=== PATIENT | female | born 1950 | race Caucasian/White ===

== ENCOUNTER → 2023-01-25 | Outpatient (CLI) | payer MEDICARE, SELFPAY ==
[2023-01-25 18:01] LABS: CRP < 2.90 mg/L (0.0-3.0)
[2023-01-28 16:08] LABS: Endomysial Antibody IgA Negative (Negative); Immunoglobulin A 157 mg/dL (64-422); t-Transglutaminase IgA <2 U/mL (0-3)
== END | disposition home or self-care (01) ==
LOC: MTLAB 14:37
PROVIDERS: PCP Family Medicine; Referring Provider Internal Medicine Gastroenterology; Visit Provider Internal Medicine Gastroenterology
DX: R19.7 Diarrhea, unspecified (principal)
CPT/HCPCS: 36415; 82784; 83516; 86140; 86255

== ENCOUNTER 2023-09-26 09:30 | Outpatient (CLI) | payer MEDICARE, SELFPAY ==
--- OUTSIDE RECORDS SUMMARY | 2023-09-26 10:17 | XMS RPT_ITS | CCD ---
Author Name Unknown Address [address] [place] [address] Organization [facility] Care Team Providers Care Assistant Professor Of Dietetics Name Role Phone Dipak Seth Primary Care Provider DIPAK SETH Primary Care Unavailable DINAH PADILLADIJA Admitting Unavailable ERIC SHIELDS Attending Unavailable DINAH PADILLA Referring Unavailable DIPAK SETH Primary Care Unavailable ERIC SHIELDS Attending Unavailable DIPAK SETH Primary Care Unavailable Nasreen Hutchins Unavailable Unavailable Dipak Seth Unavailable Unavailable Dipak Seth Lucinda Vizcarra Unavailable Unavailable Dipak Seth Primary Care Provider DIPAK SETH Primary Care Unavailable WINNIE ESQUIVEL II Attending Unavailabl e Dorinda, Dr. Dipak Zamorano Primary Care Unavailbryce Dill, Dr. Sammie Hernandez Attending Unava dave Boles, Ms. Singh Garcia Attending Unavail able Dorinda, Dr. Dipak Zamorano Primary Care Unavaila ble Dorinda, Dr. Dipak Zamorano Primary Care Unavaila ble Zackery, Ms. Lucinda Mtz Attending Unava ilable Dorinda, Dr. Dipak Zamorano Primary Care Unavaila mariella Seth, Dr. Dipak Zamorano Attending Unavailbryce Dill, Dr. Sammie Hernandez Attending Unava ilable Dorinda, Dr. Dipak Zamorano Primary Care Unavaila ble DIPAK SETH Primary Care Unavailable DUNG LUNA Attending Unavailable YAMILE CLIFFORD Attending Unavailable DIPAK SETH Primary Care Unavailable DIPAK SETH Admitting Unavailable DIPAK SETH Primary Care Unavailable DIPAK SETH Primary Care Unavailable TOMROSALINOK, DIPAK GALINA Attending Unavailable DIPAK SETH Referring Unavailable Allergies Allergy Classification Reported Allergen(s) Allergy Type Date of Onset Reaction(s) Facility (2 sources) Ibandronate Drug Allergy Other [facility] (3 sources) Ibandronate; Translations: [IBANDRONATE] Drug Allergy 09-08-2014 Other: See Comments [facility] Medications Current Medications Medication Drug Class(es) Dates Sig (Normalized) Sig (Original) amoxicillin 500 mg oral tablet (4 sources) Penicillin-class Antibacterial Start: 01-24-2022 End: 02-02-2022 take 1 tablet by mouth twice daily amoxicillin 500 mg oral tablet ; 1 tab(s) orally 2 times a day x 10 days Quantity: 20 Refills: 0 Ordered: 24-Jan-2022 Lucinda Vizcarra Start: 24-Jan-2022 End: 02-Feb-2022 Generic Substitution Allowed Comments: Finish all this medication unless otherwise directed by prescriber. Completed/Discontinued Medications Medication Drug Class(es) Dates Sig (Normalized) Sig (Original) B COMPLEX & C NO.20-FOLIC ACID ORAL (1 source) B COMPLEX & C NO.20-FOLIC ACID ORAL Take by mouth. 0 Active Problems Active Problems Problem Classification Problem Date Documented Da te Episodic/Chronic Cardiac dysrhythmias (1 source) Cardiac arrhythmia; Translations: [Cardiac arrhythmia, unspecified cardiac arrhythmia type] Chronic Cardiac dysrhythmias (4 sources) Palpitations; Translations: [Tachycardia] 09-22-2019 Episodic Cataract (1 source) Bilateral senile combined form cataracts of eyes; Translations: [Combined forms of age-related cataract, bilateral] Onset: 05-06-2018 05-06-2018 Chronic Fluid and electrolyte disorders (1 source) Hypokalemia; Translations: [Hypokalemia] Episodic Headache; including migraine (1 source) Headache; including migraine; Translations: [Headache, unspecified] Onset: 01-24-2022 Inflammation; infection of eye (except that caused by tuberculosis or sexually transmitteddisease) (1 source) Squamous blepharitis; Translations: [Squamous blepharitis left eye, upper and lower eyelids] Episodic Nonspecific chest pain (2 sources) Chest discomfort; Translations: [Chest discomfort] 09-22-2019 Episodic Other connective tissue disease (1 source) Impingement syndrome of shoulder region; Translations: [Impingement syndrome, shoulder, right] Episodic Other eye disorders (1 source) Bilateral vitreous floaters; Translations: [Other vitreous opacities, bilateral] Onset: 05-06-2018 05-06-2018 Chronic Other non-traumatic joint disorders (1 source) Shoulder pain; Translations: [Shoulder pain, right] Episodic Other screening for suspected conditions (not mental disorders or infectious disease) (5 sources) Encounter for screening mammogram for malignant neoplasm of breast; Translations: [Encounter for screening for osteoporosis] Onset: 08-29-2022 Episodic Other upper respiratory disease (4 sources) Pain in throat 06-08-2021 Episodic Past or Other Problems Problem Classification Problem Date Documented Da te Episodic/Chronic Abdominal pain (8 sources) Right lower quadrant pain; Translations: [Unspecified abdominal pain] Onset: 10-29-2022 Episodic Blindness and vision defects (3 sources) Myopia; Translations: [Myopia, unspecified eye] Onset: 09-08-2014 09-08-2014 Episodic Fever of unknown origin (3 sources) Fever with chills; Translations: [Fever, unspecified] Onset: 01-24-2022 01-24-2022 Episodic Fracture of lower limb (1 source) Nondisplaced fracture of fifth metatarsal bone, right foot, initial encounter for closed fracture; Translations: [Nondisp fx of fifth metatarsal bone, right foot, init] Onset: 01-24-2022 Episodic Malaise and fatigue (2 sources) Other fatigue; Translations: [Other fatigue] Onset: 01-24-2022 Episodic Other bone disease and musculoskeletal deformities (3 sources) Other specified disorders of bone density and structure, unspecified site; Translations: [Oth disrd of bone density and structure, unspecified site] Onset: 08-29-2022 Episodic Other connective tissue disease (1 source) Pain in right foot; Translations: [Pain in right foot] Onset: 01-24-2022 Episodic Other gastrointestinal disorders (2 sources) Constipation, unspecified; Translations: [Constipation, unspecified] Onset: 11-17-2022 Episodic Other nervous system disorders (2 sources) Paresthesia of skin; Translations: [Paresthesia of skin] Onset: 02-22-2023 Episodic Other upper respiratory infections (7 sources) Acute pharyngitis; Translations: [Acute pharyngitis] Onset: 01-24-2022 10-28-2021 Episodic Residual codes; unclassified (1 source) Asymptomatic menopausal state; Translations: [Asymptomatic menopausal state] Onset: 08-29-2022 Episodic Retinal detachments; defects; vascular occlusion; and retinopathy (1 source) 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; Translations: [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, unspecified eye] Onset: 09-08-2014 09-08-2014 Episodic NEGATED: Highlighted row has not occurred!Residual codes; unclassified (16 sources) Disease Episodic Results Test Name Value Interpretation Reference Range Facil ity Vital Signs Date Time Vital Sign Value Performing Clinician Facility 01-24-2022 10:08-0400 Body height 160 cm Dipak Seht Other Phone: [facility] 01-24-2022 10:08-0400 Body temperature 97.88 [degF] Dipak Seth Other Phone: [facility] 01-24-2022 10:08-0400 Diastolic blood pressure 61 mm[Hg] Dipak Seth Other Phone: [facility] 01-24-2022 10:08-0400 Heart rate 73 /min Dipak Seth Other Phone: [facility] 01-24-2022 10:08-0400 Respiratory rate 16 /min Dipak Seth Other Phone: [facility] 01-24-2022 10:08-0400 SaO2% (BldA) [Mass fraction] 98 % Dipak Seth Other Phone: [facility] 01-24-2022 10:08-0400 Systolic blood pressure 117 mm[Hg] Dipak Seth Other Phone: [facility] 10-28-2021 10:40-0400 Body height 160 cm Dipak eSth Other Phone: [facility] 10-28-2021 10:40-0400 Body temperature 98.78 [degF] Dipak Seth Other Phone: [facility] 10-28-2021 10:40-0400 Diastolic blood pressure 71 mm[Hg] Dipak Seth Other Phone: [facility] 10-28-2021 10:40-0400 Heart rate 84 /min Dipak Seth Other Phone: [facility] 10-28-2021 10:40-0400 Respiratory rate 16 /min Dipak Seth Other Phone: [facility] 10-28-2021 10:40-0400 SaO2% (BldA) [Mass fraction] 96 % Dipak Seth Other Phone: [facility] 10-28-2021 10:40-0400 Systolic blood pressure 108 mm[Hg] Dipak Seth Other Phone: [facility] 06-08-2021 13:46-0400 Body height 160 cm Dipak Seth Other Phone: [facility] 06-08-2021 13:46-0400 Body temperature 98.06 [degF] Dipak Seth Other Phone: [facility] 06-08-2021 13:46-0400 Diastolic blood pressure 71 mm[Hg] Dipak Seth Other Phone: [facility] 06-08-2021 13:46-0400 Heart rate 75 /min Dipak Seth Other Phone: [facility] 06-08-2021 13:46-0400 Respiratory rate 14 /min Dipak Seth Other Phone: [facility] 06-08-2021 13:46-0400 SaO2% (BldA) [Mass fraction] 98 % Dipak Seth Other Phone: [facility] 06-08-2021 13:46-0400 Systolic blood pressure 129 mm[Hg] Dipak Seth Other Phone: [facility] 09-22-2019 08:57-0500 BMI (Body Mass Index) 23.72 kg/m2 Eric Shields [facility] 09-22-2019 08:57-0500 Body weight 60.74 kg Eric Shields [facility] 09-22-2019 08:57-0500 BP Diastolic 66 mm[Hg] Eric Aikenhmy [facility] 09-22-2019 08:57-0500 BP Systolic 106 mm[Hg] Eric Shields [facility] 09-22-2019 08:57-0500 Height 160 cm Eric Aikenhmy [facility] 09-22-2019 08:57-0500 Pulse (Heart Rate) 70 /min [facility] 08:57-0500 Pulse Oximetry 96 % [facility] 09-06-2019 19:00-0500 BP Diastolic 60 mm[Hg] [facility] 09-06-2019 19:00-0500 BP Systolic 129 mm[Hg] [facility] 09-06-2019 19:00-0500 Pulse (Heart Rate) 73 /min [facility] 09-06-2019 19:00-0500 Pulse Oximetry 98 % [facility] 09-06-2019 16:51-0500 BMI (Body Mass Index) 23.56 kg/m2 [facility] 09-06-2019 16:51-0500 Body Temperature 97.59 [degF] [facility] 09-06-2019 16:51-0500 Body weight 60.33 kg [facility] 09-06-2019 16:51-0500 Height 160 cm [facility] 09-06-2019 16:51-0500 Respiratory Rate 16 /min [facility] Encounters Encounter Date Encounter Type Care Provider Facility Start: 06-04-2023 End: 06-05-2023 ambulatory DIPAK [facility] Start: 02-22-2023 End: 02-22-2023 Emergency department patient visit [facility] Start: 12-12-[address] Sammie Dill Facility:[id number] Start: 11-23-2022 ambulatory Ms. Singh Boles Facility:[id number] Start: 11-17-2022 End: 11-17-2022 Emergency department patient visit [facility] Start: 10-29-2022 End: 11-02-2022 ambulatory [facility] Start: 10-04-2022 End: 10-04-2022 ambulatory [facility] Facility:[facility] Start: 10-04-2022 End: 10-04-2022 Patient encounter procedure Winnie Esquivel OD Work Phone: Optometry Procedures Date Procedure Procedure Detail Performing Clinician Start: 09-22-2019 12 lead ECG Eric Cherie my Work Phone: Start: 09-06-2019 Drugs of abuse urine screening test Dinah Padilla Work Phone: Start: 09-06-2019 Urinalysis Dinah Padilla Work Phone: Start: 09-06-2019 Radiologic exam ches t single view Dinah Padilla Work Phone: Start: 09-06-2019 Basic metabolic 1998 panel - Serum or Plasma Dinah Zuhairmanda Padilla Work Phone: Start: 09-06-2019 Complete blood count with white cell differential, automated Dinah Padilla Work Phone: Start: 09-06-2019 Complete blood count with white cell differential, manual Dinah Padilla Work Phone: Start: 09-06-2019 D-dimer assay, quantitative Dinah Padilla Work Phone: Start: 09-06-2019 Ethanol [Mass/volume ] in Serum or Plasma Dinah Zuhair Padilla Work Phone: Start: 09-06-2019 Hepatic function 200 0 panel - Serum or Plasma Dinah Zuhairmanda Padilla Work Phone: Start: 09-06-2019 Lipase [Enzymatic activity/volume] in Serum or Plasma [place] Zuhairmanda Padilla Work Phone: Start: 09-06-2019 Thyrotropin [Units/v olume] in Serum or Plasma by Detection limit <= 0.005 mIU/L Dinah Padilla Work Phone: Start: 09-06-2019 Troponin measurement Butch pamela Zuhair Padilla Work Phone: Start: 02-17-2015 [facility] Treatment Date Care Activity Detail Author Start: 08-12-2022 ADVANCE DIRECTIVE DISCUSSION ADVANCE DIRECTIVE DISCUSSION [facility] Start: 08-12-2022 DEPRESSION ASSESSMENT DEPRESSION ASSESSMENT [facility] Start: 09-22-2019 End: 09-22-2019 Office Visit 09/22/2019 Office Visit Cardiology Dinah Padilla MD [address] [place] [address] [phone] Eric Shields MD [address] [place] [address] [phone] [facility] Start: 04-12-2019 Influenza vaccination given SEQUENTIAL INFLUENZA VACCINE (#1) [facility] Start: 02-18-2016 Screening mammography Mammogram [facility] Start: 12-03-2015 BONE DENSITY BONE DENSITY [facility] Start: 12-03-2015 Pneumococcal vaccination PNEUMOCOCCAL VACCINE AGE 65+ (1 of 2 - PCV13) [facility] Start: 12-03-2015 PNEUMOCOCCAL: 65+ (1 - PCV) PNEUMOCOCCAL: 65+ (1 - PCV) [facility] Start: 2000 Administration of herpes zoster vaccine Zoster Vaccines (1 of 2) [facility] Start: 2000 SHINGRIX VACCINE (1 of 2) SHINGRIX VACCINE (1 of 2) [facility] Start: 12-03-1995 COLOGUARD (FIT-DNA) COLOGUARD (FIT-DNA) [facility] Start: 12-03-1995 Colonoscopy COLONOSCOPY [facility] Start: 12-03-1995 COLORECTAL CANCER SCREENING COLORECTAL CANCER SCREENING [facility] Start: 12-03-[address] COLONOGRAPHY [facility] Start: 12-03-1995 DIABETES SCREEN DIABETES SCREEN [facility] Start: 12-03-1995 FECAL OCCULT BLOOD FECAL OCCULT BLOOD [facility] Start: 12-03-1995 LIPID SCREEN LIPID SCREEN [facility] Start: 12-03-1995 SIGMOIDOSCOPY SIGMOIDOSCOPY [facility] Start: 1990 Mammography MAMMOGRAM [facility] Start: 1969 Urine microalbumin profile DTAP,TDAP,TD (1 - Tdap) [facility] Start: 1968 HEPATITIS C SCREENING HEPATITIS C SCREENING [facility] Start: 1953 History and physical examination, annual for health maintenance Wellness Visit [facility] Start: 1950 Fall risk assessment Falls Risk Assessment [facility] Start: 1950 Hepatitis C antibody, confirmatory test HEPATITIS C SCREENING [facility] Start: 1950 Screening for malignant neoplasm of colon Colorectal Cancer Screening: Colonoscopy [facility] Start: 1950 Screening for osteoporosis Dexa Scan [facility] Start: 1950 Screening mammography Mammogram [facility] Start: 1950 Tetanus vaccination TETANUS EVERY 10 YR [facility] End: 09-11-2019 48 hour ambulatory electrocardiographic monitoring Holter monitor - 48 hour Cardiac Services Routine Tachycardia Once for 1 Occurrences starting 09/11/2019 until 09/11/2019 [facility] Payers Date Payer Category Payer Medicare AETNA MEDICARE A ETNA MEDICARE PPO [id number] 2021-Present [phone] [facility] [id number] [place] [address] [facility] [id number] 2019 Medicare AETNA MANAGED ME DICARE AETNA MEDICARE PLAN (PPO) [id number] 2019-Present [id number] 2019 Medicare [id number] 2015 Medicare [id number] 2015 Unknown AETNA\AETNA BEATRIZ MACIAS 1950 Unknown [id number] 1950 Unknown [id number] 1950 Unknown [id number] 1950 Unknown [id number] 1950 Unknown [id number] 1950 Unknown [id number] 1950 Unknown [id number] 1950 Unknown [id number] 1950 Unknown [id number] 1950 Unknown [id number] 1950 Unknown [id number] 1950 Unknown [id number] Social History Date Type Detail Facility Start: 09-08-2014 End: 09-06-2019 Tobacco smoking status INIS Never smoker [facility] Start: 09-06-2019 End: 09-22-2019 Alcohol intake Current drinker of alcohol (finding) [facility] Start: 09-06-2019 Alcohol Comment social [facility] Start: 1950 Sex Assigned At Not on file [facility] Tobacco smoking consumption unknown [facility] Start: 09-08-2014 Tobacco use and exposure Smokeless tobacco non-user [facility] Start: 07-13-2021 Alcohol intake Ex-drinker (finding) [facility] Start: 07-13-2021 Alcohol intake [facility] Start: 09-08-2014 Alcohol Comment Occassionally [facility] Functional Status Date Assessment Result Facility NEGATED: Highlighted row Functional performance Functional status health issues are not documented [facility] Work Phone: Mental Status Date Assessment Result Facility NEGATED: Highlighted row Cognitive function [Interpretation] Cognitive status health issues are not documented [facility] Work Phone: Progress note 10-04-2022 Note Date & Type Note Facility 10-04-2022 Note HNO ID: [id number] Author: Winnie Esquivel II, OD Service: ? 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 Recommend Ocusoft lid scrubs and lubricant eye drops through day. Resolution expected slowly over next weeks time. Recheck as needed. Instruct patient to immediately report any change in condition outside of expected and discussed symptoms. I have confirmed and edited as necessary the relevant ophthalmic history, ROS, and the neuro exam findings as obtained by others. I have seen and examined Chinmay Grimaldo. I have discussed the case and the management of this patient's care with the Resident/Fellow, if applicable. I also have reviewed and agree with the assessment and plan as stated above and agree with all of its relevant components. 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 Recommend Ocusoft lid scrubs and lubricant eye drops through day. Resolution expected slowly over next weeks time. Recheck as needed. Instruct patient to immediately report any change in condition outside of expected and discussed symptoms. I have confirmed and edited as necessary the relevant ophthalmic history, ROS, and the neuro exam findings as obtained by others. I have seen and examined Chinmay Grimaldo. I have discussed the case and the management of this patient's care with the Resident/Fellow, if applicable. I also have reviewed and agree with the assessment and plan as stated above and agree with all of its relevant components. 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 Recommend Ocusoft lid scrubs and lubricant eye drops through day. Resolution expected slowly over next weeks time. Recheck as needed. Instruct patient to immediately report any change in condition outside of expected and discussed symptoms. I have confirmed and edited as necessary the relevant ophthalmic history, ROS, and the neuro exam findings as obtained by others. I have seen and examined Chinmay Grimaldo. I have discussed the case and the management of this patient's care with the Resident/Fellow, if applicable. I also have reviewed and agree with the assessment and plan as stated above and agree with all of its relevant components. 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 Advance Directives and Livin g Will 09/06/2019 5:10 PM Documents on File Type Date Recorded 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 Advance Directives and Livin g Will 09/06/2019 5:10 PM Advance Directives and Livin g Will 09/11/2019 12:00 AM Documents on File Type Date Recorded 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 Advance Directives and Livin g Will 09/06/2019 5:10 PM Advance Directives and Livin g Will 09/11/2019 12:00 AM Reason for Referral Status Reason Specialty Diagnoses / Procedures Referred By Contact Referred To Contact Pending Review Specialty Services Required/Patien t's Best Interest Cardiology Dinah Padilla MD [address] [place] [address] Status Reason Specialty Diagnoses / Procedures Referred By Contact Referred To Contact Pending Review Cardiology Diagnoses Tachycardia Procedures Holter monitor - 48 hour Dipak Seth MD [address] [place] [address] Discharge Instructions * Attachments The following attachments cannot be sent through Care Everywhere. * Hypokalemia (Maori) * Palpitations (Maori) documented in this encounter Assessments Diagnosis Palpitations Hypokalemia Hypopotassemia Diagnosis Cardiac arrhythmia, unspecified cardiac arrhythmia type Palpitations Chest discomfort Other chest pain Diagnosis Tachycardia Unspecified tachycardia Instructions Name Dates Details Instructions not documented History of Present Illness * Eric Shields MD - 09/22/2019 9:27 AM EST OFFICE CONSULTATION NOTE [facility] [address] [facility] [address] [facility] [id number] Physicians: Dipak Seth MD (Family); Dinah Padilla MD (Referring) Subjective: Chinmay Grimaldo is a 68 y.o. female seen in the office today for Establish Care (hx of palpitations. no complaints of palps currently. Holter completed. ) . HPI: The patient is a 68-year-old female with a past medical history significant for atypical chest painremotely. She had an equivocal SPECT and underwent coronary angiography approximately 15 years ago.She had normal coronary arteries at that time. The patient was at a play 2 weeks ago when she felt her heart racing. Her smart watch displayed a heart rate of 180. She presented to the emergency department but by that time the symptoms had abated. She had no evidence of dysrhythmia at that time. Her EKG was nonacute. Her blood work was actuallyquite normal. Her troponin was undetectable. She does note occasional chest discomfort which she states can last all day. It is worse with inspiration. She denies any orthopnea, paroxysmal internal dyspnea, syncope, or near syncope. The patient did wear a Holter monitor which was unremarkable. Assessment & Plan: Palpitations The patient had a sensation of heart racing. Her smart watch calculated a heart rate of around 180.Her symptoms had abated by the time she presented to the emergency department. Her telemetry was unremarkable. She had outpatient telemetry which did not demonstrate any significant tachycardia or bradycardia. I do not believe further testing is indicated presently. I would continue to treat her with observation. If she has recurrence of symptoms, I would consider a 30-day event recorder. Chest discomfort The patient has atypical chest discomfort. It appears to be pleuritic. Her EKG today did not demonstrate any changes. I would continue to treat this with observation. She had normal coronary arteriesremotely. If symptoms change or become more frequent, we can revisit the issue of repeat ischemic work-up. Follow Up Ordered: Return if symptoms worsen or fail to improve. Histories: Past Medical History: Diagnosis Date Palpitations Past Surgical History: Procedure Laterality Date APPENDECTOMY CARDIAC CATHETERIZATION 05/2003 no angiographically definable CAD CYSTO 1996 History reviewed. No pertinent family history. Social History Tobacco Use Smoking status: Never Smoker Smokeless tobacco: Never Used Substance Use Topics Alcohol use: Yes Comment: social Drug use: Never Current Outpatient Medications Medication Sig Dispense Refill cholecalciferol, vitamin D3, 125 mcg (5,000 unit) capsule Take 2,000 Units by mouth daily . No current facility-administered medications for this visit. No Known Allergies Review of Systems Constitution: Negative for diaphoresis, malaise/fatigue, weight gain and weight loss. HENT: Negative for hearing loss, nosebleeds and tinnitus. Eyes: Negative for blurred vision and visual disturbance. Cardiovascular: Positive for chest pain (Atypical) and palpitations. Negative for claudication, cyanosis, dyspnea on exertion, irregular heartbeat, leg swelling, near-syncope, orthopnea, paroxysmal nocturnal dyspnea and syncope. Respiratory: Negative for hemoptysis, shortness of breath and snoring. Endocrine: Negative for cold intolerance and heat intolerance. Hematologic/Lymphatic: Does not bruise/bleed easily. Skin: Negative for flushing, poor wound healing and rash. Musculoskeletal: Negative for back pain, muscle weakness and myalgias. Gastrointestinal: Negative for abdominal pain, change in bowel habit, melena, nausea and vomiting. Genitourinary: Negative for decreased libido and hematuria. Neurological: Negative for loss of balance and numbness. Psychiatric/Behavioral: Negative for memory loss. The patient is not nervous/anxious. Overview of Problems Addressed: Problem Palpitations Chest Discomfort Objective: Physical Exam Constitutional: She is oriented to person, place, and time. She appears well- developed and well-nourished. HENT: Head: Normocephalic. Eyes: Pupils are equal, round, and reactive to light. Conjunctivae and EOM are normal. No scleral icterus. Neck: Normal range of motion. Neck supple. No JVD present. No tracheal deviation present. No thyromegaly present. Cardiovascular: Normal rate, regular rhythm, S1 normal, S2 normal, normal heart sounds and intact distal pulses. Exam reveals no friction rub. No murmur heard. Pulmonary/Chest: Breath sounds normal. No respiratory distress. She has no wheezes. She has no rales. Abdominal: Soft. Bowel sounds are normal. She exhibits no distension and no mass. There is no hepatosplenomegaly. There is no abdominal tenderness. Musculoskeletal: Normal range of motion. General: No edema. Lymphadenopathy: She has no cervical adenopathy. Neurological: She is alert and oriented to person, place, and time. Skin: Skin is warm and dry. Psychiatric: She has a normal mood and affect. Her behavior is normal. Vitals: Vitals: 09/22/19 0857 BP: 106/66 BP Location: Left arm Patient Position: Sitting Pulse: 70 SpO2: 96% Weight: 60.7 kg (133 lb 14.4 oz) Height: 5' 3 Orders Placed This Encounter ECG 12 Lead cholecalciferol, vitamin D3, 125 mcg (5,000 unit) capsule Thank you for allowing me to assist you in the cardiovascular care of this patient. Please don't hesitate to contact me if you have any questions regarding these thoughts. 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 1. Independent HEP to allow for 50% reduction in max ADL C/C sx ( 8/10) 2-3wks 2. 0/10 night time sx to allow for uninterrupted sleep x1wk ( 02/15) 2-3wks 3. Survey score improvement from 22% to 10% (QDI) 3-4wks 4. ROM increase to allow for improved ADL dressing uppers, reaching (from 145 to 155 active elevation) 3-4wks 5. Strength increase to allow for improved ADL carrying, object handling (from gr4-/4 to gr 4+) 3-4wks, goal partially met Planned interventions include: cryotherapy, dry needling, education/instruction, electrical stimulation, home program, hot pack, kinesiotaping, manual therapy, self care/home management and therapeutic exercises. Frequency and duration: No further visits planned. Potential to achieve rehab goals is good Pt being placed on hold for 30 days at this time and is going to attempt independence (more content not included)... Additional Source Comments INFORMATION SOURCE (unrecogn ized section and content) DATE CREATED AUTHOR AUTHOR'S ORGANIZ ATION 01/15/2020 [facility] DATE CREATED AUTHOR AUTHOR'S ORGANIZ ATION 10/31/[address] [facility] DATE CREATED AUTHOR AUTHOR'S ORGANIZ ATION 01/25/2022 [facility] DATE CREATED AUTHOR AUTHOR'S ORGANIZ ATION 10/05/2022 [facility] DATE CREATED AUTHOR AUTHOR'S ORGANIZ ATION 12/15/2022 [facility] DATE CREATED AUTHOR AUTHOR'S ORGANIZ ATION 06/06/2023 [facility] Reason for Visit (unrecogniz ed section and content) Reason Comments Establish Care hx of palpitations. no complaints of palps currently. Holter completed. Status Reason Specialty Diagnoses / Procedures Referred By Contact Referred To Contact Pending Review Specialty Services Required/Patien t's Best Interest Cardiology Dinah Padilla MD [address] [place] [id number] Status Reason Specialty Diagnoses / Procedures Referred By Contact Referred To Contact Pending Review Cardiology Diagnoses Tachycardia Procedures Holter monitor - 48 hour Dipak Seth MD [address] [place] [address] Reason Comments Blepharitis Evaluation Olga Guevara RN - 09/06/2019 4:57 PM Dinah Antonio MD - 09/06/2019 4:56 PM EST ED Notes (unrecognized secti on and content) PT STATES SHE HAS BEEN NAUSEATED WITH DISCOMFORT IN HER R CHEST. PT STATES HER HEART RATE ON HER FITBIT WAS 190. PT ALSO STATES SHE FELT DIZZY. DENIES PREVIOUS HISTORY. ED PROVIDER NOTE [facility] NAME: Chinmay Grimaldo AGE: 68 y.o. : 1950 VISIT DATE: 09/06/2019 CSN: [id number] PCP: Dipak Seth MD Chief Complaint Patient presents with increased heart rate HPI Patient is a 68-year-old female generally healthy who denies any significant medical or surgical history presents to the ED with complaints of increased heart rate while at rest watching a theater show earlier today. In the ED patient is awake alert she is answering questions appropriately her speech is clear no facial droop is noted GCS is 15 initial vital blood pressure 146/69 her pulse is 101 pulse ox is 100% on room air she is afebrile 97.6 Fahrenheit. Patient says she was sitting watching the other show when her Apple Watch noted her heart rate was in the 190s she started feeling pulsation in her neck palpitations mild dizziness decided to come in the ED for evaluation. Patient denies any previous history of SVTs any cardiac issues any thyroid abnormalities she denies any history of [place] PE pneumothorax no recent travel hospitalization or sick contact denied any symptoms prior to the episode an hour ago while at rest. Initial EKG in the ED does note........ History reviewed. No pertinent past medical history. Past Surgical History: Procedure Laterality Date APPENDECTOMY History reviewed. No pertinent family history. Social History Socioeconomic History Marital status: Spouse name: Not on file Number of children: Not on file Years of education: Not on file Highest education level: Not on file Occupational History Not on file Social Needs Financial resource strain: Not on file Food insecurity Worry: Not on file Inability: Not on file Transportation needs Medical: Not on file Non-medical: Not on file Tobacco Use Smoking status: Never Smoker Smokeless tobacco: Never Used Substance and Sexual Activity Alcohol use: Yes Comment: social Drug use: Never Sexual activity: Not on file Lifestyle Physical activity Days per week: Not on file Minutes per session: Not on file Stress: Not on file Relationships Social connections Talks on phone: Not on file Gets together: Not on file Attends [employer] service: Not on file Active member of club or organization: Not on file Attends meetings of clubs or organizations: Not on file Relationship status: Not on file Other Topics Concern Not on file Social History Narrative Not on file No current outpatient medications on file prior to encounter. No Known Allergies Review of Systems All other systems reviewed and are negative. Patient Vitals for the past 24 hrs: BP Temp Temp src Pulse Resp SpO2 Height Weight 09/06/19 1651 146/69 97.6 F (36.4 C) Oral (!) 101 16 100 % 5' 3 60.3 kg (133 lb) Physical Exam Vitals signs and nursing note reviewed. Constitutional: General: She is not in acute distress. Appearance: Normal appearance. She is well-developed. She is not ill-appearing, toxic-appearing or diaphoretic. Comments: Laying in bed comfortably awake alert answering questions appropriately nondistressed looking HENT: Head: Normocephalic and atraumatic. Right Ear: There is no impacted cerumen. Left Ear: There is no impacted cerumen. Nose: Nose normal. No congestion or rhinorrhea. Mouth/Throat: Mouth: Mucous membranes are moist. Pharynx: Oropharynx is clear. No oropharyngeal exudate or posterior oropharyngeal erythema. Eyes: General: No scleral icterus. Right eye: No discharge. Left eye: No discharge. Extraocular Movements: Extraocular movements intact. Conjunctiva/sclera: Conjunctivae normal. Pupils: Pupils are equal, round, and reactive to light. Neck: Musculoskeletal: Normal range of motion and neck supple. No neck rigidity or muscular tenderness. Cardiovascular: Rate and Rhythm: Regular rhythm. Tachycardia present. Pulses: Normal pulses. Heart sounds: Normal heart sounds. Pulmonary: Effort: Pulmonary effort is normal. No respiratory distress. Breath sounds: Normal breath sounds. No stridor. No wheezing, rhonchi or rales. Chest: Chest wall: No tenderness. Abdominal: General: Bowel sounds are normal. There is no distension. Palpations: Abdomen is soft. There is no mass. Tenderness: There is no abdominal tenderness. There is no right CVA tenderness, left CVA tenderness, guarding or rebound. Hernia: No hernia is present. Musculoskeletal: Normal range of motion. General: No swelling, tenderness, deformity or signs of injury. Right lower leg: No edema. Left lower leg: No edema. Lymphadenopathy: Cervical: No cervical adenopathy. Skin: General: Skin is warm and dry. Coloration: Skin is not jaundiced or pale. Findings: No bruising, erythema or lesion. Neurological: General: No focal deficit present. Mental Status: She is alert and oriented to person, place, and time. Mental status is at baseline. Cranial Nerves: No cranial nerve deficit. Sensory: No sensory deficit. Motor: No weakness. Coordination: Coordination normal. Gait: Gait normal. Psychiatric: Mood and Affect: Mood normal. Laboratory & Radiographic Imaging (if done): Results for orders placed or performed during the hospital encounter of 09/06/19 Chem 7 Result Value Ref Range Sodium 140 135 - 145 mmol/L Potassium 3.4 (L) 3.5 - 5.1 mmol/L Chloride 104 98 - 108 mmol/L Bicarbonate 26 21 - 32 mmol/L Creatinine 0.80 0.60 - 1.20 mg/dL Glucose 108 (H) 65 - 99 mg/dL BUN 11 8 - 25 mg/dL eGFR 76 >=60 mL/min/1.73 m2 BUN/Creatinine Ratio 13.8 10.0 - 20.0 Anion Gap 13 10 - 20 mmol/L D-Dimer, Quantitative Result Value Ref Range D-Dimer 0.43 0.27 - 0.49 mcg/mL FEU Hepatic Function Panel (LFT) Result Value Ref Range Total Protein 7.9 6.0 - 8.0 g/dL Albumin 4.1 3.2 - 5.2 g/dL Total Bilirubin 0.4 0.0 - 1.3 mg/dL Bilirubin, Direct <0.1 0.0 - 0.4 mg/dL Alkaline Phosphatase 82 40 - 150 U/L AST 15 0 - 45 U/L ALT 22 14 - 65 U/L Lipase Result Value Ref Range Lipase 186 73 - 393 U/L Troponin Result Value Ref Range Troponin I <15 <=45 ng/L Troponin I Interpretation Normal Urinalysis Result Value Ref Range Color, Urine Yellow Colorless, Yellow Clarity, Urine Clear Clear Specific Pillow 1.009 1.005 - 1.025 pH, Urine 5.0 5.0 - 7.0 Protein, Urine Negative Negative mg/dL Glucose, Urine Negative Negative mg/dL Ketones, Urine Negative Negative mg/dL Bilirubin, Urine Negative Negative Urobilinogen, Urine <2.0 <2.0 mg/dL Blood, Urine Negative Negative Nitrite, Urine Negative Negative Leukocyte Esterase, Urine Negative Negative WBCs, Urine 2 0 - 5 /hpf RBCs, Urine <1 0 - 3 /hpf Bacteria, Urine None Seen None Seen /hpf Hyaline Casts 3-5 (A) 0 - 2 /lpf Mucus, Urine Many (A) None Seen, Rare /lpf TSH with Reflex Free T4 Result Value Ref Range TSH 0.86 0.27 - 4.20 mcIU/mL Urine Drug Screen Result Value Ref Range Amphetamine Screen, Urine None Detected None Detected Barbiturate Screen, Urine None Detected None Detected Benzodiazepine Screen, Urine None Detected None Detected Cannabinoid Screen, Urine None Detected None Detected Cocaine, Screen Urine None Detected None Detected Methadone Screen, Urine None Detected None Detected Opiate Screen, Urine None Detected None Detected Oxycodone Screen, Urine None Detected None Detected Alcohol, Medical Result Value Ref Range Alcohol (Medical) <10.00 <10.00 mg/dL CBC Auto Differential Result Value Ref Range WBC 6.56 4.50 - 11.00 K/mcL RBC 4.65 4.00 - 5.20 M/mcL Hemoglobin 14.0 12.0 - 16.0 g/dL Hematocrit 42.4 36.0 - 46.0 % MCV 91.2 80.0 - 100.0 fL MCH 30.1 26.0 - 34.0 pg MCHC 33.0 31.0 - 37.0 g/dL Platelets 258 150 - 400 K/mcL RDW - CV 13.0 11.6 - 14.8 % MPV 10.3 9.0 - 15.5 fL Neutrophils 60.9 % Lymphocytes 28.8 % Monocytes 7.9 % Eosinophils 1.5 % Basophils 0.6 % IG Percent 0.30 % Neutrophils Abs 3.99 1.70 - 7.00 K/mcL Lymphocytes Abs 1.89 0.90 - 4.00 K/mcL Monocytes Abs 0.52 0.30 - 0.90 K/mcL Eosinophils Abs 0.10 0.00 - 0.50 K/mcL Basophils Abs 0.04 0.00 - 0.30 K/mcL IG Absolute 0.02 0.00 - 0.30 K/mcL Nucleated RBC 0.0 % Nucleated RBC Abs 0.00 0.00 - 0.00 K/mcL XR Chest 1 View Final Result 1. No acute findings. DPR/mjr Workstation ID: [id number] Procedures MDM Patient is a 68-year-old female who denies any significant medical or surgical history denies any previous history of coronary artery disease [place] PE pneumothorax presents to the ED with complaints of palpitation increased heart rate while at rest in the ED however patient is awake alert answering questions appropriately her speech is clear no facial droop is noted GCS is 15 initial vital blood pressure 146/69 pulse of 101 pulse ox is 100% on room air afebrile 97.6 Fahrenheit initial EKG does note normal sinus rhythm with no ST wave abnormalities markers electrolytes chest x- ray are all within normal limits patient was given a supplement potassium she remained asymptomatic in the ED after few hours of observation she is discharged with cardiology outpatient follow-up for Holter monitor and further cardiac cardiac work-up encouraged to return to the ED if any worsening symptoms and she expressed understanding. The patient has been informed that they may have pre-hypertension or hypertension based on a blood pressure reading in the Emergency Department. I recommend that the patient call the primary care provider listed on their discharge instructions or a physician of their choice as soon as possible to arrange follow-up in the next 4 weeks for further evaluation of possible pre-hypertension or hypertension. . Clinical Impression: 1. Palpitations 2. Hypokalemia ED Disposition ED Disposition Condition Comment Discharge Stable Chinmay Grimaldo discharged to home/self care in stable condition. Follow-up Information 1. Dipak Seth MD. Specialty: Family Medicine Why: If symptoms worsen [address] [place] [address] 2. [facility]. Specialty: Cardiology Why: If symptoms worsen [address] Medical Office [facility] [id number] Contact information for after-discharge care Follow-up information has not been specified. Dinah Padilla MD 09/06/19 1903 documented in this encounter Assessment & Plan Note - Eric Shields MD - 09/22/2019 9:31 AM ESTAssessment & Plan Note - Eric Shields MD - 09/22/2019 9:30 AM EST Miscellaneous Notes (unrecog nized section and content) Associated Problem(s): Chest discomfort The patient has atypical chest discomfort. It appears to be pleuritic. Her EKG today did not demonstrate any changes. I would continue to treat this with observation. She had normal coronary arteries remotely. If symptoms change or become more frequent, we can revisit the issue of repeat ischemic work-up. Associated Problem(s): Palpitations The patient had a sensation of heart racing. Her smart watch calculated a heart rate of around 180. Her symptoms had abated by the time she presented to the emergency department. Her telemetry was unremarkable. She had outpatient telemetry which did not demonstrate any significant tachycardia or bradycardia. I do not believe further testing is indicated presently. I would continue to treat her with observation. If she has recurrence of symptoms, I would consider a 30-day event recorder. documented in this encounter <item><item><item> Privacy Markings (unrecogniz ed section and content) Section Author: Guillermina Tinoe PROHIBITION ON REDISCLOSURE OF CONFIDENTIAL INFORMATION This notice accompanies a disclosure of information concerning a client made to you with the consent of such client. Section Author: Guillermina Tineo PROHIBITION ON REDISCLOSURE OF CONFIDENTIAL INFORMATION This notice accompanies a disclosure of information concerning a client made to you with the consent of such client. Section Author: Guillermina Tineo PROHIBITION ON REDISCLOSURE OF CONFIDENTIAL INFORMATION This notice accompanies a disclosure of information concerning a client made to you with the consent of such client. Source Comments (unrecognize d section and content) In the event this informatio n is protected by the Federal Confidentiality of Alcohol and Drug Abuse Patient Records regulations: The Federal rules restrict any use of the information to criminally investigate or prosecute any alcohol or drug abuse patient.[facility] Care Teams (unrecognized sec tion and content) FOR RECORDS PERTAINING TO PATIENTS WHO ARE OR HAVE BEEN ENROLLED IN A CHEMICAL DEPENDENCY/SUBSTANCEABUSE PROGRAM, SOME INFORMATION MAY BE OMITTED. This clinical summary was aggregated from multiple sources. Caution should be exercised in using it in the provision of clinical care. This summary normalizes information from multiple sources, and as a consequence, information in this document may materially change the coding, format and clinical context of patient data. In addition, data may be omitted in some cases. CLINICAL DECISIONS SHOULD BE BASED ON THE PRIMARY CLINICAL RECORDS. [facility]. provides no warranty or guarantee of the accuracy or completeness of information in this document.
[2023-09-26 12:45] LABS: Vitamin B12 977 pg/mL (211-911); Vitamin D,25 Hydroxy 46.2 ng/mL
[2023-09-26 15:00] LABS: ALB/GLOB Ratio 1.1 RATIO (0.9-2.4); AST(SGOT) 21 U/L (15-37); Alanine Aminotransfer ALT/SGPT 21 U/L (13-56); Albumin, Serum 3.8 g/dL (3.2-5.0); Alkaline Phosphatase 99 U/L (45-117); Anion Gap 6 (5-15); BUN 11 mg/dL (7-18); BUN/Creat Ratio 13.7 RATIO (10-20); Calcium,Total 9.7 mg/dL (8.5-10.1); Chloride 107 mmol/L (98-107); Cholesterol 185 mg/dL (200); EST Glomerular Filtration Rate 74 mL/min (>60); Est Glom Filt Rate - Afr Amer 90 mL/min (>60); Ferritin 64 ng/mL (8-252); Globulin 3.5 g/dL (2.2-4.2); Glucose 91 mg/dL (74-106); High Density Lipoprotein 86 mg/dL; Protein, Total 7.3 g/dL (6.4-8.2); Sodium Level 141 mmol/L (136-145); Triglycerides 103 mg/dL; Very Low Density Lipoprotein 21 mg/dL (5-40)
== END 2023-09-26 23:59 | disposition home or self-care (01) ==
LOC: MFPLAB 09:30
PROVIDERS: PCP Family Medicine; Visit Provider Family Medicine
DX: E55.9 Vitamin D deficiency, unspecified (principal); E78.5 Hyperlipidemia, unspecified
CPT/HCPCS: 36415; 80053; 80061; 82306; 82607; 82728

== ENCOUNTER → 2024-01-13 | Outpatient (CLI) | payer MEDICARE, SELFPAY ==
--- NOTE | 2024-01-13 13:49 | BI_ITS ---
MAMMOGRAPHY - BILATERAL SCREENING REASON FOR EXAM: Female, 73 years old. Routine annual screening examination. PERTINENT HISTORY: Non-contributory. TECHNIQUE: Digital bilateral breast elsie (3D mammographic acquisition) in the CC and MLO projections. 2-D mediolateral oblique (MLO) and craniocaudad (CC) views of both breasts were obtained. CAD: Full Field Digital Mammography with Computer Added Detection was performed. COMPARISON: Comparison is made with prior outside examination of December 12, 2022. FINDINGS: Breast Composition: The breasts are heterogeneously dense, which may obscure small masses. There are no dominant masses or suspicious calcifications. No other significant abnormalities are identified. There has been no significant change since the prior study. BI/SCRN MAMM (CAD)W/ELSIE BILAT IMPRESSION: Stable bilateral screening mammogram. Yearly follow-up mammogram recommended. (A) ASSESSMENT CATEGORY: BIRADS Category 1: Negative. A letter regarding these results will be sent to the patient by the facility within 30 days. Approximately 10% of breast cancers are not detected by mammography. A normal mammogram should not delay biopsy of a clinically suspicious abnormality. [id number] Electronically Signed: Nixon Ibarra MD at 14:47 EDT ,
== END | disposition home or self-care (01) ==
PROVIDERS: PCP Family Medicine; Referring Provider Nurse Practitioner Family; Visit Provider Nurse Practitioner Family
DX: Z12.31 Encounter for screening mammogram for malignant neoplasm of breast (principal)
CPT/HCPCS: 77063; 77067

== ENCOUNTER → 2024-04-01 | Outpatient (CLI) | payer MEDICARE, SELFPAY ==
[2024-04-01 10:17] LABS: Absolute Lymphocyte Count 1.09 X10^3/uL (0.83-4.51); Absolute Neutrophil Count 3.4 X10^3/uL (2.0-7.7); Basophil# 0.03 X10^3/uL; Basophil% 0.5 % (0-1); Eosinophil# 0.49 X10^3/uL; Eosinophils% 8.8 % (0-5); Hematocrit 38.9 % (37-47); Hemoglobin 12.4 g/dL (12.0-15.0); Lymphocyte # 1.09 X10^3/ul (0.83-4.51); Lymphocyte % 19.7 % (19-41); Mean Corp Hgb Conc 31.9 g/dL (32-36); Mean Platelet Vol. 10.3 fl (6.2-12.0); Monocyte# 0.48 X10^3/uL; Monocyte% 8.7 % (0-10); NRBC Flagged by Analyzer 0 % (0-5); Neutrophil # 3.44 X10^3/uL (2.7-7.7); Neutrophil % 62.1 % (47-70); Platelet Count 245 K/mm3 (150-450); Red Blood Count 4.14 M/mm3 (4.2-5.4); White Blood Count 5.5 K/mm3 (4.4-11.0)
[2024-04-01 10:32] LABS: Vitamin D,25 Hydroxy 77.8 ng/mL
[2024-04-01 10:50] LABS: ALB/GLOB Ratio 0.9 RATIO (0.9-2.4); AST(SGOT) 11 U/L (15-37); Alanine Aminotransfer ALT/SGPT 20 U/L (13-56); Albumin, Serum 3.4 g/dL (3.2-5.0); Alkaline Phosphatase 102 U/L (45-117); Anion Gap 6 (5-15); BUN 14 mg/dL (7-18); BUN/Creat Ratio 18.8 RATIO (10-20); Calcium,Total 9.5 mg/dL (8.5-10.1); Chloride 105 mmol/L (98-107); Cholesterol 167 mg/dL (200); Creatinine, Serum 0.75 mg/dL (0.55-1.02); EST Glomerular Filtration Rate 81 mL/min (>60); Est Glom Filt Rate - Afr Amer 98 mL/min (>60); Globulin 3.8 g/dL (2.2-4.2); Glucose 110 mg/dL (74-106); High Density Lipoprotein 72 mg/dL; Potassium 3.9 mmol/L (3.5-5.1); Protein, Total 7.2 g/dL (6.4-8.2); Sodium Level 139 mmol/L (136-145); Triglycerides 106 mg/dL; Very Low Density Lipoprotein 21 mg/dL (5-40)
== END | disposition home or self-care (01) ==
LOC: MFPLAB 08:38
PROVIDERS: PCP Family Medicine; Visit Provider Family Medicine
DX: E55.9 Vitamin D deficiency, unspecified (principal); E78.5 Hyperlipidemia, unspecified
CPT/HCPCS: 36415; 80053; 80061; 82306; 85025

== ENCOUNTER → 2024-04-08 | Outpatient (CLI) | payer MEDICARE, SELFPAY ==
[2024-04-08 18:40] LABS: Vitamin B12 621 pg/mL (211-911)
[2024-04-08 18:59] LABS: Hemoglobin A1c 5.6 % (3.8-5.6)
== END | disposition home or self-care (01) ==
LOC: MFPLAB 15:00
PROVIDERS: PCP Family Medicine; Visit Provider Family Medicine
DX: R73.09 Other abnormal glucose (principal); E53.9 Vitamin B deficiency, unspecified
CPT/HCPCS: 36415; 82607; 83036

== ENCOUNTER 2024-05-07 08:45 | Outpatient (RCR) | payer MEDICARE, SELFPAY ==
[2024-04-23 10:22] VITALS: BP 142/61; PULSE 63; RESP 18; TEMP 36.8; BMI 24.4
[2024-05-07 08:43] VITALS: BP 132/59; PULSE 65; RESP 18; TEMP 35.7; BMI 24.4
== END 2024-05-11 23:59 | disposition home or self-care (01) ==
LOC: WC 08:45
PROVIDERS: PCP Family Medicine; Referring Provider Family Medicine; Visit Provider Student in an Organized Health Care Education/Training Program
DX: L97.522 Non-pressure chronic ulcer of other part of left foot with fat layer exposed (principal); S91.332S Puncture wound without foreign body, left foot, sequela; W26.8XXS Contact with other sharp object(s), not elsewhere classified, sequela; M79.672 Pain in left foot; Z79.899 Other long term (current) drug therapy
CPT/HCPCS: 11042; 99213; G0463

== ENCOUNTER 2024-06-11 09:45 | Outpatient (RCR) | payer MEDICARE, SELFPAY ==
[2024-05-12 00:25] VITALS: BP 132/59; PULSE 65; RESP 18; TEMP 35.7; BMI 24.4
[2024-05-14 08:37] VITALS: BP 140/76; PULSE 71; RESP 18; TEMP 35.9; BMI 24.4
[2024-06-11 10:18] VITALS: BP 131/86; PULSE 69; RESP 18; TEMP 36.1; BMI 24.4
== END 2024-06-11 14:19 | disposition home or self-care (01) ==
LOC: WC 09:45
PROVIDERS: PCP Family Medicine; Referring Provider Family Medicine; Visit Provider Student in an Organized Health Care Education/Training Program
DX: L97.521 Non-pressure chronic ulcer of other part of left foot limited to breakdown of skin (principal); S91.332S Puncture wound without foreign body, left foot, sequela; W26.8XXS Contact with other sharp object(s), not elsewhere classified, sequela; M79.672 Pain in left foot; Z79.899 Other long term (current) drug therapy
CPT/HCPCS: 97597; 99213; G0463

== ENCOUNTER → 2024-06-19 | Outpatient (CLI) | payer MEDICARE, SELFPAY | END | disposition home or self-care (01) | PROVIDERS: PCP Family Medicine | DX: N39.0 Urinary tract infection, site not specified (principal) | CPT/HCPCS: 87086 ==

== ENCOUNTER → 2024-11-24 | Outpatient (CLI) | payer MEDICARE, SELFPAY ==
[2024-11-24 19:12] LABS: Internal QC Validated? YES +Cl - CLEAR BKGD; Monotest Negative (Negative); Record Kit Lot#, Mono 13241430
== END | disposition home or self-care (01) ==
LOC: MFPLAB 14:54
PROVIDERS: PCP Family Medicine
DX: J32.9 Chronic sinusitis, unspecified (principal)
CPT/HCPCS: 36415; 86308

== ENCOUNTER → 2024-12-04 | Outpatient (CLI) | payer MEDICARE, SELFPAY | END | disposition home or self-care (01) | LOC: LABSPEC 14:57 | PROVIDERS: PCP Family Medicine; Referring Provider Otolaryngology; Visit Provider Otolaryngology | DX: J02.9 Acute pharyngitis, unspecified (principal) | CPT/HCPCS: 87070 ==

== ENCOUNTER → 2025-01-13 | Outpatient (CLI) | payer MEDICARE, SELFPAY ==
--- OUTSIDE RECORDS SUMMARY | 2025-01-13 20:30 | XMS RPT_ITS | CCD ---
Author Organization [facility] Care Team Providers Care Vamp Maker Name Role Phone Dipak Seth Primary Care Provider Nasreen Hutchins Unavailable Unavailable Dipak Seth Unavailable Unavailable Dipak Seth Lucinda Vizcarra Unavailable Unavailable Dipak Seth Primary Care Provider Dorinda, Dr. Dipak Zamorano Primary Care Unavailbryce Hilario, Dr. Sammie Hernandez Attending Unava dave Ayoub, Ms. Ernestina Garcia Attending Unavail able Dorinda, Dr. Dipak Zamorano Primary Care Unavaila ble Dorinda, Dr. Dipak Zamorano Primary Care Unavaila mariella Vizcarra, Ms. Lucinda Mtz Attending Maanva ilable Dorinda, Dr. Dipak Zamorano Primary Care Unavaila ble Dorinda, Dr. Dipak Zamorano Attending Unavaila ble Fuentes, Dr. Sammie Hernandez Attending Unava ilable Dorinda, Dr. Dipak Zamorano Primary Care Unavaila LOTTIE Yokr Attending Unavail able TRANG CARR Primary Care Unavailable Trang Carr MD Primary Care Provider [phone] Trang Carr MD Primary Care Provider [phone] Trang Carr MD Primary Care Provider Fernyorrow RETORT FIRER-CAroldo Attending Provider Fernyorrow RETORT FIRER-CAroldo Referring Provider DARBY VELASCO Admitting Unavailable TRANG CARR Primary Care Unavailable ISABELLA DIXON Attending Unavailable TRANG CARR Primary Care Unavailable ROYER VICTORIA Attending Unavailable JERE COLON Admitting Unavailelizabeth e TRANG CARR Primary Care Unavailable JASON VIDALES Attending Unavailabl e [facility] Consulting Christiano Carr, Chalon Primary Care Unavailable Stathopoulos, Vanessa Referring Unavailabl e Stathopoulos, Vanessa Attending Unavailabl e Lilly, Chalon Referring Unavailable Lilly, Chalon Attending Unavailable Lilly, Chalon Primary Care Unavailable Lilly, Chalon Primary Care Unavailable Pb Corrales Attending Unavailabl e Warraviann, Pb Referring Unavailabl e Lilly, Chalon Primary Care Unavailable McMorrow RETORT FIRER, Aroldo Referring Unavailable McMorrow RETORT FIRER, Aroldo Attending Unavailable Lilly, Chalon Primary Care Unavailable Rima Seay Attending Unavailable Lilly, Chalon Referring Unavailable Lilly, Chalon Primary Care Unavailable WonDaniel collier Attending Unavailable Lilly, Chalon Referring Unavailable Lilly, Chalon Primary Care Unavailable WonDaniel Attending Unavailable Lilly, Antonioon Attending Unavailable Lilly, Chalon Primary Care Unavailable Lilly, Antonioon Attending Unavailable Lilly, Chalon Primary Care Unavailable MOLLY KIRBY Attending Unavailabl e COOPERCLOTILDEERMOLLY Referring Unavailabl e LILLY, CHALON Primary Care Unavailable MOLLY KIRBY Attending Unavailabl e SELF Referring Unavailable LILLY, CHALON Primary Care Unavailable MOLLY KIRBY Attending Unavailabl e COOPERRIDER, MOLLY Arana Referring Unavailabl e LILLY, CHALON Primary Care Unavailable Allergies Allergy Classification Reported Allergen(s) Allergy Type Date of Onset Reaction(s) Facility (2 sources) Ibandronate Drug Allergy Other [facility] (15 sources) Ibandronate; Translations: [IBANDRONATE] Drug Allergy 5 Other: See Comments, Anaphylaxis [facility] Comment on above: no appetite nauseous (1 source) Ibadronate Drug Allergy 4 [facility] Repository Medications Current Medications Medication Drug Class(es) Dates [...] this medication unless otherwise directed by prescriber. Start: 06-08-2021 End: 06-17-2021 take 1 tablet by mouth twice daily amoxicillin 875 mg oral tablet ; 1 tab(s) orally 2 times a day x 10 days Quantity: 20 Refills: 0 Ordered: 08-Jun-2021 Lucinda Vizcarra Start: 08-Jun-2021 End: 17-Jun-2021 Status: Other Generic Substitution Allowed Comments: Finish all this medication unless otherwise directed by prescriber. Comment on above: Finish all this medi cation unless otherwise directed by prescriber. aspirin 81 mg delayed release oral tablet (7 sources) Platelet Aggregation Inhibitor, Nonsteroidal Anti-inflammatory Drug Start: 07-31-20 24 End: 08-30-19 25 take 1 tablet by mouth once daily aspirin 81 MG EC tablet Take 1 (one) tablet (81 mg total) by mouth daily . 30 tablet 07/31/2024 08/30/2024 Active B COMPLEX & C NO.20-FOLIC ACID ORAL (3 sources) B COMPLEX & C NO.20-FOLIC ACID ORAL Take by mouth. 0 Active Comment on above: Take by mouth. CALCIUM PHOSPHATE DIBAS/VIT D3 (VITAMIN D, WITH CALCIUM, ORAL) (3 sources) CALCIUM PHOSPHAT E DIBAS/VIT D3 (VITAMIN D, WITH CALCIUM, ORAL) Take by mouth. 0 Active Comment on above: Take by mouth. 12 hr cetirizine hydrochloride 5 mg / pseudoephedrine hydrochloride 120 mg extended release oral tablet (5 sources) alpha-Adrenergic Agonist, Histamine-1 Receptor Antagonist Start: 11-29-19 End: 12-29-19 25 take 1 tablet by mouth twice daily cetirizine-pseudo ePHEDrine (ZyrTEC-D) 5-120 mg per tablet Take 1 (one) tablet by mouth 2 (two) times a day . 60 tablet 11/28/2024 12/28/2024 Active cholecalciferol 0.125 mg oral capsule (11 sources) Vitamin D take 1 capsule by mouth once daily cholecalciferol, vitamin D3, 125 mcg (5,000 unit) capsule Take 1 (one) capsule (5,000 Units total) by mouth daily . Active Cholecalciferol, Vitamin D3, 125 mcg (5,000 unit) cap Take 2,000 Units by mouth. 0 Active take 1 capsule by mouth once domingo ly cholecalciferol, vitamin D3, 125 mcg (5,000 unit) capsule Take 2,000 Units by mouth daily . 0 Active Comment on above: Take 2,000 Units by mouth. 1 ml denosumab 60 mg/ml prefilled syringe (12 sources) RANK Ligand Inhibitor Start: 04-23-2024 Denosumab (Denosumab 60 Mg/Ml Subcutaneous Syringe) 60 mg/mL syringe Active mg SC April 23, 2024 12:00am denosumab (Proli a) 60 mg/mL Syrg Inject 60 (sixty) mg under the skin every 6 (six) months . Active inject 60 mg by subc utaneous injection once denosumab (PROLIA) 60 mg/mL Inject 60 mg subcutaneously one time only. 0 Active Comment on above: Inject 60 mg subcuta neously one time only. fluticasone propionate 0.05 mg/actuat metered dose nasal spray (5 sources) Corticosteroid Start: 5 End: 6 take 2 spray(s) nasal route once daily fluticasone propionate (FLONASE) 50 mcg/actuation nasal spray Instill 2 (two) sprays into each nostril daily . 16 g 11/28/2024 11/28/2025 Active lactobac cmb #[id number] 300-250 million cell-mg cap (3 sources) lactobac cmb #[id number] 300-250 million cell-mg cap Take by mouth. 0 Active Comment on above: Take by mouth. meloxicam 15 mg oral tablet (3 sources) Nonsteroidal Anti-inflammatory Drug Start: 0 meloxicam (MOBIC) 15 mg tablet metoprolol tartrate 25 mg oral tablet (8 sources) beta-Adrenergic Melvina Start: 5 End: 6 take 0.5 tablet by mouth twice daily as needed metoprolol tartrate (LOPRESSOR) 25 MG tablet Take 0.5 (one-half) tablet (12.5 mg total) by mouth 2 (two) times a day as needed . 30 tablet 11 12/04/2024 12/04/2025 Active Start: 07-31-2024 End: 07-31-2024 take 1 dose by mouth once 50-100 mg, Oral, Once, On Fr i 07/31/24 at 0915, For 1 dose, Pre-Procedure, 1 hour prior to CCTA exam, if HR greater than 60. Hold for HR less than or equal to 59, SEE ADMINISTRATION INSTRUCTIONS for dosage, For 1 Dose Pre-Procedure. For HR greater than 60 beats per minute AND patient IS already on a beta-melvina, give 50mg. For HR greater than 60 beats per minute AND patient is NOT already on a beta-melvina, give 100mg. Start: 07-31-2024 End: 07-31-2024 10 mg, Intravenous, Every 10 min PRN, 1 hour after oral dose for HR greater than 60 beats per minute AND SBP greater than 90 mmHg., Starting on 07/31/24 at 0817, For 3 doses, Pre-Procedure, >>>>>TO BE RELEASED AND GIVEN IN PROCEDURE AREA ONLY MULTIVITAMIN WITH MINERALS (MULTIVITAMIN & MINERAL FORMULA ORAL) (3 sources) MULTIVITAMIN WIT H MINERALS (MULTIVITAMIN & MINERAL FORMULA ORAL) Take by mouth. 0 Active Comment on above: Take by mouth. Omeprazole (2 sources) Proton Pump Inhibitor PriLOSEC Quantity: 0 Refills: 0 Ordered: 28-Oct-2021 Poppy Joe Generic Substitution Allowed pantoprazole 40 mg delayed release oral tablet (12 sources) Proton Pump Inhibitor Start: 4 End: 4 take 1 tablet by mouth once daily Pantoprazole 40 mg tablet,delayed release (DR/EC) Active 40 mg PO DAILY April 23, 2024 12:00am pantoprazole DR (PROTONIX) 20 mg tablet Take 20 mg by mouth. 0 Active rosuvastatin calcium 10 mg oral tablet (12 sources) HMG-CoA Reductase Inhibitor Start: 07-31-2024 End: 08-30-2024 take 2 tablets by mouth once daily rosuvastatin (CRESTOR) 10 MG tablet Take 2 (two) tablets (20 mg total) by mouth nightly . 60 tablet 07/31/2024 Active Start: 04-23-2024 End: 07-31-2024 take 1 tablet by mouth at bedtime Rosuvastatin 10 mg tablet Active 10 mg PO AT BEDTIME April 23, 2024 12:00am rosuvastatin (CR ESTOR) 20 mg tablet Take 10 mg by mouth. 0 Active statin (unknown) (1 source) sucralfate 1000 mg oral tablet (8 sources) Aluminum Complex Start: 07-31-20 End: 08-30-19 take 1 tablet by mouth four times daily before mealtime sucralfate (CARAFATE) 1 gram tablet Take 1 (one) tablet (1 g total) by mouth 4 (four) times a day before meals . 120 tablet 07/31/2024 Active traZODone hydrochloride 50 mg oral tablet (9 sources) Serotonin Reuptake Inhibitor Start: 07-30-20 End: 08-30-19 take 1 tablet by mouth once daily as needed for sleep traZODone (DESYREL) 50 MG tablet Take 1 (one) tablet (50 mg total) by mouth nightly as needed for sleep . 30 tablet 07/31/2024 Active vitamin b12 1 mg oral tablet (7 sources) Vitamin B12 take 1 tablet by mouth every other day cyanocobalamin (vitamin B-12) 1000 MCG tablet Take 1 (one) tablet (1,000 mcg total) by mouth every other day . Active Completed/Discontinued Medications Medication Drug Class(es) Dates Sig (Normalized) Sig (Original) acetaminophen 325 mg oral tablet (8 sources) Start: 07-30-2024 End: 07-31-2024 take 1 tablet by mouth every four hours as needed take 2 tablets by mo ut every six hours as needed for pain acetaminophen (TYLENOL) 500 MG tablet Ta ke 2 (two) tablets (1,000 mg total) by mouth every 6 (six) hours as needed for pain . Active aluminum hydroxide 40 mg/ml / magnesium hydroxide 40 mg/ml / simethicone 4 mg/ml oral suspension (1 source) Start: 07-30-2024 End: 07-31-2024 take 30 mL by mouth every four hours as needed for gastroesophageal reflux disease atorvastatin 20 mg oral tablet (1 source) HMG-CoA Reductase Inhibitor Start: 07-30-2024 End: 07-31-2024 take 20 mg by mouth once daily 20 mg, Oral, Nightly, First dose on Sat07/30/24 at 2215 1 ml atropine sulfate 1 mg/ml injection (1 source) Anticholinergic, Cholinergic Muscarinic Antagonist Start: 07-31-2024 End: 07-31-2024 1 mg, Intravenous, As needed, If HR less than 40 or continued symptomatic bradycardia, Starting on Sat07/31/24 at 0740, For 3 doses, Intra-Procedure, Administer over 1 minute. May repeat as needed every 3 minutes (maximum dose of 3 mg). benzonatate 100 mg oral capsule (2 sources) Non-narcotic Antitussive Start: 10-28-2021 End: 11-06-2021 take 2 capsules by mouth every eight hours as needed benzonatate 100 mg oral capsule ; 1-2 cap(s) orally every 8 hours, As Needed for cough Quantity: 60 Refills: 0 Ordered: 28-Oct-2021 Lucinda Vizcarra Start: 28-Oct-2021 End: 06-Nov-2021 Status: Other Generic Substitution Allowed Comments: May cause drowsiness. Alcohol may intensify this effect. Use care when operating dangerous machinery.Swallo w whole. Do not crush. Comment on above: May cause drowsiness . Alcohol may intensify this effect. Use care when operating dangerous machinery.Swallow whole. Do not crush. fluconazole 150 mg oral tablet (3 sources) Azole Antifungal Start: 06-08-2021 End: 06-08-2021 take 1 tablet by mouth once Diflucan 150 mg oral tablet ; 1 tab(s) orally once Quantity: 1 Refills: 0 Ordered: 08-Jun-2021 Lucinda Vizcarra Start: 08-Jun-2021 End: 08-Jun-2021 Status: Other Generic Substitution Allowed Comments: Do not take this drug if you are .Finish all this medication unless otherwise directed by prescriber. Comment on above: Do not take this missy g if you are .Finish all this medication unless otherwise directed by prescriber. iopamidoL (ISOVUE-370) 370 mg iodine /mL (76 %) injection 72 mL (1 source) Start: 07-31-2024 End: 07-31-2024 72 mL, Intravenous, Once in imaging, contrast, Starting on Sat07/31/24 at 1005, For 1 dose nitroglycerin 0.4 mg sublingual tablet (2 sources) Nitrate Vasodilator Start: 07-31-2024 End: 07-31-2024 Code/trauma/michelle tion medication, Starting on Sat07/31/24 at 1015, Intra-Procedure Start: 07-30-2024 End: 07-31-2024 potassium bicarbonate 25 meq effervescent oral tablet (1 source) Start: 09-06-2019 End: 09-06-2019 potassium bicarbonate (K-LYTE) 25 MEQ disintegrating tablet 50 mEq 1000 ml sodium chloride 9 mg/ml injection (2 sources) Start: 07-31-2024 End: 07-31-2024 take 25 mL intravenously every hour 25 mL/hr, Intravenous, Continuous, Starting on Sat07/31/24 at 0915, Pre-Procedure Start: 09-06-2019 End: 09-06-2019 sodium chloride 0.9% (NS) andrea pati 500 mL Problems Active Problems Problem Classification Problem Date Documented Date Episodic/Chronic Abdominal pain (4 sources) Right lower quadrant pain; Translations: [Right lower quadrant pain] Onset: 11-23-2022 Episodic Cardiac dysrhythmias (1 source) Cardiac arrhythmia; Translations: [Cardiac arrhythmia, unspecified cardiac arrhythmia type] Chronic Cardiac dysrhythmias (18 sources) Palpitations; Translations: [Tachycardia] Onset: 09-22-2019 09-22-2019 Episodic Cataract (3 sources) Bilateral senile combined form cataracts of eyes; Translations: [Combined forms of age-related cataract, bilateral] Onset: 05-06-2018 05-06-2018 Chronic Chronic ulcer of skin (3 sources) Non-pressure chronic ulcer of other part of left foot with fat layer exposed; Translations: [Skin ulcer of left foot with fat layer exposed] Onset: 07-17-2024 05-07-2024 Chronic Fluid and electrolyte disorders (1 source) Hypokalemia; Translations: [Hypokalemia] Episodic Headache; including migraine (1 source) Headache; including migraine; Translations: [Headache, unspecified] Onset: 01-24-2022 Inflammation; infection of eye (except that caused by tuberculosis or sexually transmitteddisease) (1 source) Squamous blepharitis; Translations: [Squamous blepharitis left eye, upper and lower eyelids] Episodic Nutritional deficiencies (1 source) Vitamin D deficiency, unspecified; Translations: [Vitamin D deficiency, unspecified] Onset: 04-21-2024 Chronic Open wounds of extremities (2 sources) Puncture wound of sole of foot; Translations: [Puncture wound without foreign body, left foot, initial encounter] 04-23-2024 Episodic Other connective tissue disease (1 source) Impingement syndrome of shoulder region; Translations: [Impingement syndrome, shoulder, right] Episodic Other connective tissue disease (2 sources) Foot pain; Translations: [Pain in left foot] 04-23-2024 Episodic Other ear and sense organ disorders (2 sources) Impacted cerumen, bilateral; Translations: [Impacted cerumen, bilateral] Onset: 11-28-2024 Episodic Other eye disorders (3 sources) Bilateral vitreous floaters; Translations: [Other vitreous opacities, bilateral] Onset: 05-06-2018 05-06-2018 Chronic Other eye disorders (1 source) Subconjunctival hemorrhage of left eye; Translations: [Conjunctival hemorrhage, left eye] 01-20-2024 Episodic Other eye disorders (1 source) Dry eyes; Translations: [Dry eye syndrome of bilateral lacrimal glands] 03-23-2024 Episodic Other non-traumatic joint disorders (1 source) Shoulder pain; Translations: [Shoulder pain, right] Episodic Other screening for suspected conditions (not mental disorders or infectious disease) (7 sources) Encounter for screening mammogram for malignant neoplasm of breast; Translations: [Encounter for screening for osteoporosis] Onset: 08-29-2022 Episodic Other upper respiratory disease (4 sources) Pain in throat 06-08-2021 Episodic Comment on above: SORE THROAT Other upper respiratory disease (2 sources) Other specified disorders of nose and nasal sinuses; Translations: [Other specified disorders of nose and nasal sinuses] Onset: 11-28-2024 Episodic Other upper respiratory infections (1 source) Chronic sinusitis, unspecified; Translations: [Chronic sinusitis, unspecified] Onset: 11-30-2024 Chronic Other upper respiratory infections (12 sources) Acute pharyngitis; Translations: [Acute pharyngitis] Onset: 01-24-2022 10-28-2021 Episodic Unclassified (2 sources) COLD SYMPTOMS 10-28-2021 Comment on above: COLD SYMPTOMS Unclassified (1 source) Viral URI with cough 10-28-2021 Urinary tract infections (1 source) Urinary tract infection, site not specified; Translations: [Urinary tract infection, site not specified] Onset: 11-05-2024 Episodic Past or Other Problems Problem Classification Problem Date Documented Da te Episodic/Chronic Blindness and vision defects (12 sources) Myopia; Translations: [Myopia, unspecified eye] Onset: 09-08-2014 09-08-2014 Episodic Diabetes mellitus without complication (1 source) Other abnormal glucose; Translations: [Other abnormal glucose] Onset: 04-22-2024 Episodic Fever of unknown origin (3 sources) Fever with chills; Translations: [Fever, unspecified] Onset: 01-24-2022 01-24-2022 Episodic Fracture of lower limb (1 source) Nondisplaced fracture of fifth metatarsal bone, right foot, initial encounter for closed fracture; Translations: [Nondisp fx of fifth metatarsal bone, right foot, init] Onset: 01-24-2022 Episodic Malaise and fatigue (2 sources) Other fatigue; Translations: [Other fatigue] Onset: 01-24-2022 Episodic Nonspecific chest pain (20 sources) Chest discomfort; Translations: [Chest pain] Onset: 07-30-2024 09-22-2019 Episodic Other bone disease and musculoskeletal deformities (3 sources) Other specified disorders of bone density and structure, unspecified site; Translations: [Oth disrd of bone density and structure, unspecified site] Onset: 08-29-2022 Episodic Other connective tissue disease (1 source) Pain in right foot; Translations: [Pain in right foot] Onset: 01-24-2022 Episodic Residual codes; unclassified (1 source) Asymptomatic menopausal state; Translations: [Asymptomatic menopausal state] Onset: 08-29-2022 Episodic Retinal detachments; defects; vascular occlusion; and retinopathy (3 sources) 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; Translations: [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, unspecified eye] Onset: 09-08-2014 09-08-2014 Episodic NEGATED: Highlighted row has not occurred!Residual codes; unclassified (16 sources) Disease Episodic Results Test Name Value Interpretation Reference Range Facility Culture, Throaton 12-06-2024 CUT Normal throat jeanine isolated. No beta-hemolytic streptococcus isolated. Normal [facility] Comment on above: Performed By: #### M 100.1000 #### [facility] [address] [place], [address] CBC WITH AUTO DIFFERENTIALon 11-28-2024 AUTO NRBC 0.0 % Normal [facility] Comment on above: Performed By: #### L [id number] #### [facility] [address] [place], [place] [address] Олег Wheeler M.D. [id number] AUTO NRBC ABS COUNT 0.00 K/mcL Normal 0.00-0.00 [facility] Comment on above: Performed By: #### L [id number] #### LAB [address] [place] [address] Олег Wheeler M.D. [id number] BASOPHILS ABSOLUTE COUNT 0.03 K/mcL Normal 0.00-0.30 [facility] Comment on above: Performed By: #### L [id number] #### LAB [address] [place] [address] Олег Wheeler M.D. [id number] Basophils/100 WBC (Bld) 0.6 % Normal [facility] Comment on above: Performed By: #### L [id number] #### LAB [address] [place] [address] Олег Wheeler M.D. [id number] Eosinophils (Bld) [#/Vol] 0.09 10*3/uL Normal 0.00-0.50 [facility] Comment on above: Performed By: #### L [id number] #### LAB [address] [place] [address] Олег Wheeler M.D. [id number] Eosinophils/100 WBC (Bld) 1.7 % Normal [facility] Comment on above: Performed By: #### L [id number] #### LAB [address] [place] [address] Олег Wheeler M.D. [id number] Erythrocyte distribution width (RBC) [Ratio] 13.2 % Normal 11.6-14.8 [facility] Comment on above: Performed By: #### L [id number] #### LAB [address] [place] [address] Олег Wheeler M.D. [id number] Hematocrit (Bld) [Volume fraction] 42.6 % Normal 36.0-46.0 [facility] Comment on above: Performed By: #### L [id number] #### LAB [address] [place] [address] Олег Wheeler M.D. [id number] Hemoglobin (Bld) [Mass/Vol] 13.6 g/dL Normal 12.0-16.0 [facility] Comment on above: Performed By: #### L [id number] #### LAB [address] [place] [address] Олег Wheeler M.D. [id number] IG ABSOLUTE 0.02 K/mcL Normal 0.00-0.30 [facility] Comment on above: Performed By: #### L [id number] #### LAB [address] [place] [address] Олег Wheeler M.D. [id number] IG PERCENT 0.40 % Normal [facility] Comment on above: Result Comment: The IG parameter is the percentage of metamyelocytes, myelocytes and promyelocytes. An immature granulocyte count (IG) of 1% or more suggests the possibility of infection, an IG count of 3% is very likely related to an infection. Performed By: #### L [id number] #### LAB [address] [place] [address] Олег Wheelre M.D. [id number] Lymphocytes (Bld) [#/Vol] 1.54 10*3/uL Normal 0.90-4.00 [facility] Comment on above: Performed By: #### L [id number] #### LAB [address] [place] [address] Олег Wheeler M.D. [id number] Lymphocytes/100 WBC (Bld) 29.5 % Normal [facility] Comment on above: Performed By: #### L [id number] #### LAB [address] [place] [address] Олег Wheeler M.D. [id number] MCH (RBC) [Entitic mass] 29.9 pg Normal 26.0-34.0 [facility] Comment on above: Performed By: #### L [id number] #### LAB [address] [place] [address] Олег Wheeler M.D. [id number] MCV (RBC) [Entitic vol] 93.6 fL Normal 80.0-100.0 [facility] Comment on above: Performed By: #### L [id number] #### LAB [address] [place] [address] Олег Wheeler M.D. [id number] MEAN CORPUSCULAR HEMOGLOBIN CONC 31.9 g/dL Normal 31.0-37.0 [facility] Comment on above: Performed By: #### L [id number] #### LAB [address] [place] [address] Олег Wheeler M.D. [id number] Monocytes (Bld) [#/Vol] 0.41 10*3/uL Normal 0.30-0.90 [facility] Comment on above: Performed By: #### L [id number] #### LAB [address] [place] [address] Олег Wheeler M.D. [id number] Monocytes/100 WBC (Bld) 7.9 % Normal [facility] Comment on above: Performed By: #### L [id number] #### LAB [address] [place] [address] Олег Wheeler M.D. [id number] NEUTROPHILS ABSOLUTE COUNT 3.13 K/mcL Normal 1.70-7.00 [facility] Comment on above: Performed By: #### L [id number] #### LAB [address] [place] [address] Олег Wheeler M.D. [id number] Neutrophils/100 WBC (Bld) 59.9 % Normal [facility] Comment on above: Performed By: #### L [id number] #### LAB [address] [place] [address] Олег Wheeler M.D. [id number] Platelet mean volume (Bld) [Entitic vol] 10.2 fL Normal 9.4-12.4 [facility] Comment on above: Performed By: #### L [id number] #### LAB [address] [place] [address] Олег Wheeler M.D. [id number] Platelets (Bld) [#/Vol] 241 10*3/uL Normal 150-400 [facility] Comment on above: Performed By: #### L [id number] #### [facility] [address] [place] [address] Олег Wheeler M.D. [id number] RBC (Bld) [#/Vol] 4.55 10*6/uL Normal 4.00-5.20 [facility] Comment on above: Performed By: #### L [id number] #### [facility] [address] [place] [address] Олег Wheeler M.D. [id number] WBC (Bld) [#/Vol] 5.22 10*3/uL Normal 4.50-11.00 [facility] Comment on above: Performed By: #### L [id number] #### LAB [address] [place] [address] Олег Wheeler M.D. [id number] COMPREHENSIVE METABOLIC PANE [facility] 11-28-2024 Albumin [Mass/Vol] 4.4 g/dL Normal 3.2-5.2 [facility] Comment on above: Order Comment: [facility] has implemented the eGFR calculation approach that does not have a coefficient for race that conforms to the NKF-ASN Task Force Recommendations. Performed By: #### [id number] ####[facility] [address] [place] [address] Олег Wheeler M.D. [id number] ALP [Catalytic activity/Vol] 70 U/L Normal 40-150 [facility] Comment on above: Order Comment: [facility] has implemented the eGFR calculation approach that does not have a coefficient for race that conforms to the NKF-ASN Task Force Recommendations. Performed By: #### [id number] ####[facility] [address] [address] Олег Wheeler M.D. [id number] ALT [Catalytic activity/Vol] 16 U/L Normal 0-35 U/L [facility] Comment on above: Order Comment: [facility] has implemented the eGFR calculation approach that does not have a coefficient for race that conforms to the NKF-ASN Task Force Recommendations. Performed By: #### [id number] #### LAB [address] [address] Олег Wheeler M.D. [id number] Anion gap [Moles/Vol] 16 mmol/L Normal 10-20 [facility] Comment on above: Order Comment: [facility] has implemented the eGFR calculation approach that does not have a coefficient for race that conforms to the NKF-ASN Task Force Recommendations. Performed By: #### [id number] #### LAB [address] [address] Олег Wheeler M.D. [id number] AST [Catalytic activity/Vol] 19 U/L Normal 0-35 U/L [facility] Comment on above: Order Comment: [facility] has implemented the eGFR calculation approach that does not have a coefficient for race that conforms to the NKF-ASN Task Force Recommendations. Performed By: #### 4 [id number] #### LAB [address] [address] Олег Wheeler M.D. [id number] Bilirubin [Mass/Vol] 0.3 mg/dL Normal 0.0-1.3 [facility] Comment on above: Order Comment: [facility] has implemented the eGFR calculation approach that does not have a coefficient for race that conforms to the NKF-ASN Task Force Recommendations. Performed By: #### 4 [id number] #### LAB [address] [address] Олег Wheeler M.D. [id number] Calcium [Mass/Vol] 9.9 mg/dL Normal 8.4-10.2 [facility] Comment on above: Order Comment: [facility] has implemented the eGFR calculation approach that does not have a coefficient for race that conforms to the NKF-ASN Task Force Recommendations. Performed By: #### [id number] #### LAB [address] [address] Олег Wheeler M.D. [id number] Chloride [Moles/Vol] 103 mmol/L Normal 98-108 [facility] Comment on above: Order Comment: [facility] has implemented the eGFR calculation approach that does not have a coefficient for race that conforms to the NKF-ASN Task Force Recommendations. Performed By: #### 4 [id number] #### LAB [address] [place], [place] [address] Олег Wheeler M.D. [id number] Creatinine [Mass/Vol] 0.77 mg/dL Normal 0.60-1.10 [facility] Comment on above: Order Comment: [facility] has implemented the eGFR calculation approach that does not have a coefficient for race that conforms to the NKF-ASN Task Force Recommendations. Performed By: #### 4 [id number] #### LAB [address] [id number] Олег Wheeler M.D. [id number] EGFR 82 mL/min/1.73 m2 Normal >=60 [facility] Comment on above: Order Comment: [facility] has implemented the eGFR calculation approach that does not have a coefficient for race that conforms to the NKF-ASN Task Force Recommendations. Result Comment: Jyothi mated GFR was calculated using the 2020 CKD-EPI creatinine equation. Performed By: #### [id number] #### LAB [address] [place], [place] [address] Олег Wheeler M.D. [id number] Glucose [Mass/Vol] 114 mg/dL High 65-99 [facility] Comment on above: Order Comment: [facility] has implemented the eGFR calculation approach that does not have a coefficient for race that conforms to the NKF-ASN Task Force Recommendations. Performed By: #### 4 [id number] ####[facility] [address] [id number] Олег Wheeler M.D. [id number] HCO3 (Bld) [Moles/Vol] 26 mmol/L Normal 21-32 [facility] Comment on above: Order Comment: [facility] has implemented the eGFR calculation approach that does not have a coefficient for race that conforms to the NKF-ASN Task Force Recommendations. Performed By: #### 4 [id number] #### LAB [address] [id number] Олег Wheeler M.D. [id number] Potassium [Moles/Vol] 3.9 mmol/L Normal 3.5-5.1 [facility] Comment on above: Order Comment: [facility] has implemented the eGFR calculation approach that does not have a coefficient for race that conforms to the NKF-ASN Task Force Recommendations. Performed By: #### 4 [id number] #### LAB [address] [address] Олег Wheeler M.D. [id number] Protein [Mass/Vol] 6.6 g/dL Normal 6.0-8.0 [facility] Comment on above: Order Comment: [facility] has implemented the eGFR calculation approach that does not have a coefficient for race that conforms to the NKF-ASN Task Force Recommendations. Performed By: #### 4 [id number] #### LAB [address] [address] Олег Wheeler M.D. [id number] Sodium [Moles/Vol] 141 mmol/L Normal 135-145 [facility] Comment on above: Order Comment: [facility] has implemented the eGFR calculation approach that does not have a coefficient for race that conforms to the NKF-ASN Task Force Recommendations. Performed By: #### 4 [id number] #### LAB [address] [address] Олег Wheeler M.D. [id number] Urea nitrogen [Mass/Vol] 11 mg/dL Normal 8-25 [facility] Comment on above: Order Comment: [facility] has implemented the eGFR calculation approach that does not have a coefficient for race that conforms to the NKF-ASN Task Force Recommendations. Performed By: #### 4 [id number] ####[facility] [address] [address] Олег Wheeler M.D. [id number] Urea nitrogen/Creatinine [Mass ratio] 14.3 mg/mg Normal 10.0-20.0 [facility] Comment on above: Order Comment: [facility] has implemented the eGFR calculation approach that does not have a coefficient for race that conforms to the NKF-ASN Task Force Recommendations. Performed By: #### 4 [id number] #### LAB [address] [place], [place] [address] Олег Wheeler M.D. [id number] COVID-19/INFLUENZA A,B MOLEC ULARon 11-28-2024 SARS-CoV-2 (COVID-19) Ab IA Ql SARS-COV-2 (AMY) Not Detected INFLUENZA A (AMY) Not Detected INFLUENZA B (AMY) Not Detected Normal Not Detected [facility] Comment on above: Performed By: #### L [id number] #### LAB [address] [place], [place] [address] Олег Wheeler M.D. [id number] CT SINUSon 11-28-2024 CT SINUS EXAMINATION: CT SINUS HISTORY: ORDERING SYSTEM PROVIDED HISTORY: Sinusitis, acute, uncomplicated, TECHNOLOGIST PROVIDED HISTORY: Illness/Other Reason for exam: sinus pain and pressure in face and neck, pt states swollen glands in neck, per patient cannot get into ent for another 3 weeks Encounter Type: Initial Additional signs and symptoms: strep and mono negative ORDERING SYSTEM PROVIDED DIAGNOSIS CODES: COMPARISON: 03/14/2015, 02/22/2023 TECHNIQUE: CT sinuses without contrast. Multiplanar reformats. Dose reduction techniques were achieved by using automated exposure control and/or adjustment of mA and/or kV according to patient size and/or use of iterative reconstruction technique. FINDINGS: The frontal sinuses are hypoplastic. There is minimal/mild sinus mucosal thickening. The paranasal sinuses otherwise are clear. There are no air-fluid levels. The ostiomeatal complexes are of normal morphology and are patent. The olfactory recesses are patent. The nasal septum is relatively midline. The mastoid air cells and middle ear cavities are clear. 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 IMPRESSION: 1. Hypoplastic frontal sinuses. 2. Minimal/mild sinonasal mucosal thickening. 3. Otherwise negative CT sinuses without contrast. Workstation ID: [id number] Dictated by: JERE HEBERT on Sat Nov 28, 2024 10:07:52 AM EDT Transcribed by: JERE HEBERT on Sat Nov 28, 2024 10:07:52 AM EDT Finalized by: JERE HEBERT on Sat Nov 28, 2024 10:07:52 AM EDT Normal [facility] Comment on above: Order Comment: Injur y/Trauma or Illness?:Illness/Other How long have you had these symptoms (acute/chronic)?:Chronic Reason for exam?:sinus pain and pressure in face and neck, pt states swollen glands in neck, per patient cannot get into ent for another 3 weeks Type of Exam?:Initial Additional signs and symptoms?:strep and mono negative ED Prov Noteon 11-28-2024 ED Prov Note ED PROVIDER NOTE [facility] NAME: Chinmay Grimaldo AGE: 73 y.o. : 1950 VISIT DATE: 11/28/2024 CSN: [id number] PCP: Trang Carr MD Chief Complaint Patient presents with Facial Pain Patient is a 73-year-old female who presents with family for evaluation of postnasal drip, sore throat and sinus pressure. The patient states that this has been going on for about 3 weeks. She states that when it first started she mainly had a sore throat, negative COVID flu and rapid strep. She was started on amoxicillin which she completed. Her symptoms did not resolve so then she was given doxycycline. Her symptoms still did not resolve so then she was given prednisone. The patient states that she feels very tired and is unable to do her normal daily activities because she is so sleepy secondary to the symptoms. She states that towards the end of the day she has sore throat as well. She has been taking Tylenol for this. She denies a history of seasonal allergies. Has not had any fevers or chills. Is not using any other medications or sinus rinses at this time. She denies any double worsening, denies any purulent drainage from the nose. Denies any headache. Past Medical History: Diagnosis Date Palpitations Past Surgical History: Procedure Laterality Date APPENDECTOMY CARDIAC CATHETERIZATION 05/2003 no angiographically definable CAD CYSTO 1997 History reviewed. No pertinent family history. Social History [1] Previous Medications Medication Sig acetaminophen (TYLENOL) 500 MG tablet Take 2 (two) tablets (1,000 mg total) by mouth every 6 (six) hours as needed for pain . cholecalciferol, vitamin D3, 125 mcg (5,000 unit) capsule Take 1 (one) capsule (5,000 Units total) by mouth daily . cyanocobalamin (vitamin B-12) 1000 MCG tablet Take 1 (one) tablet (1,000 mcg total) by mouth every other day . denosumab (Prolia) 60 mg/mL Syrg Inject 60 (sixty) mg under the skin every 6 (six) months . pantoprazole (PROTONIX) 40 MG tablet Take 1 (one) tablet (40 mg total) by mouth daily . rosuvastatin (CRESTOR) 10 MG tablet Take 2 (two) tablets (20 mg total) by mouth nightly . sucralfate (CARAFATE) 1 gram tablet Take 1 (one) tablet (1 g total) by mouth 4 (four) times a day before meals . traZODone (DESYREL) 50 MG tablet Take 1 (one) tablet (50 mg total) by mouth nightly as needed for sleep . Allergies[2] Review of Systems HENT: Positive for sinus pressure, sinus pain and sore throat. Negative for postnasal drip, tinnitus, trouble swallowing and voice change. Patient Vitals for the past 24 hrs: BP Temp Temp src Pulse Resp SpO2 Height Weight 11/28/24 1000 123/60 -- -- 63 18 97 % -- -- 11/28/24 0930 123/60 -- -- 63 17 97 % -- -- 11/28/24 0757 138/75 98.5 degrees F (36.9 degrees C) Oral 71 16 94 % 5' 3 61.2 kg (135 lb) Physical Exam Constitutional: Appearance: Normal appearance. HENT: Head: Atraumatic. Right Ear: There is impacted cerumen. Left Ear: There is impacted cerumen. Mouth/Throat: Pharynx: Oropharynx is clear. No pharyngeal swelling, posterior oropharyngeal erythema or postnasal drip. Cardiovascular: Rate and Rhythm: Normal rate and regular rhythm. Musculoskeletal: General: Normal range of motion. Cervical back: Normal range of motion. Pulmonary: Effort: Pulmonary effort is normal. Breath sounds: Normal breath sounds. Lymphadenopathy: Cervical: No cervical adenopathy. Skin: General: Skin is warm. Neurological: Mental Status: She is alert. Psychiatric: Mood and Affect: Mood normal. Laboratory & Radiographic Imaging (if done): Results for orders placed or performed during the hospital encounter of 11/28/24 COVID-19/Influenza A,B Molecular Specimen: Nasopharyngeal; Swab Result Value Ref Range SARS-CoV-2 Not Detected Not Detected Influenza A Not Detected Not Detected Influenza B Not Detected Not Detected Lavender Top Result Value Ref Range Extra Tube Hold for add-ons. Mint Green Top Result Value Ref Range Extra Tube Hold for add-ons. Comprehensive Metabolic Panel Result Value Ref Range Sodium 141 135 - 145 mmol/L Potassium 3.9 3.5 - 5.1 mmol/L Chloride 103 98 - 108 mmol/L Bicarbonate 26 21 - 32 mmol/L Anion Gap 16 10 - 20 mmol/L Glucose 114 (H) 65 - 99 mg/dL BUN 11 8 - 25 mg/dL Creatinine 0.77 0.60 - 1.10 mg/dL eGFR 82 >=60 mL/min/1.73 m2 BUN/Creatinine Ratio 14.3 10.0 - 20.0 Total Protein 6.6 6.0 - 8.0 g/dL Albumin 4.4 3.2 - 5.2 g/dL Calcium 9.9 8.4 - 10.2 mg/dL Alkaline Phosphatase 70 40 - 150 U/L AST 19 0-35 U/L U/L ALT 16 0-35 U/L U/L Total Bilirubin 0.3 0.0 - 1.3 mg/dL TSH with Reflex Free T4 Result Value Ref Range TSH 1.32 0.27 - 4.20 mcIU/mL CBC Auto Differential Result Value Ref Range WBC 5.22 4.50 - 11.00 K/mcL RBC 4.55 4.00 - 5.20 M/mcL Hemoglobin 13.6 12.0 - 16.0 g/dL Hematocrit 42.6 36.0 - 46.0 % MCV 93.6 80.0 - 100.0 fL MCH 29. (more content not included)... Normal [facility] TSH WITH REFLEX FREE T4on TSH Qn 1.32 m[IU]/L Normal 0.27-4.20 [facility] Comment on above: Performed By: #### [id number] #### LAB [address] [address] Олег Wheeler M.D. [id number] Heterophile Ab Ql (S)Ordered By: Aroldo Cespedes on 11-24-2024 Monoscreen Negative Negative [facility] [place] 11-24-2024 Monocytes (Bld) [#/Vol] Negative Normal Negative [facility] Comment on above: Order Comment: Order Date: 11/24/24 Order Info: [id number] - MONO Comments: tests for mono Performed By: #### L [phone] #### [facility] [address] [place], [address] [facility] Heart (Wireless Communications Engineer bill acosta)on 07-31-2024 1. Total calcium score of 72 places patient in the 60th percentile for age, gender and race/ethnicity-matched group per GREER database. 2. Minimal coronary plaque identified by Coronary CT Angiography CAD RADS (score): 1/P1 RECOMMENDATIONS: CAD-RADS 1. 1-24% coronary stenosis. Minimal non-obstructive coronary artery disease. Plaque: P1. Mild coronary artery plaque. Coronary calcium score is 1-100. Segment Involvement Score is 2 or less. Visually 1-2 vessels have mild plaque. Consider risk factor modification and preventive pharmacotherapy. Modifiers: No modifiers are present Exceptions: None [facility] Coronary Computed Angiography Report Patient Name: Chinmay Grimaldo Age: 73 y.o. Requesting Physician: Darian Velasco CNP Interpreting Wireless Communications Engineer: Tara Ash MD Primary Care Physician: Trang Carr Clinical Indication: Chest pain Gender: female Race/Ethnicity: White Cardiovascular risk factors: Hyperlipidemia Prior Imaging: calcium score Procedure: Computed tomographic angiography with contrast, including 3D image post-processing (including evaluation of cardiac structures and morphology, assessment of cardiac function and evaluation of venous structures, if performed) BMI: 25 kg/msq HR: 55 BPM Acquisition mode: Prospective, ECG triggered Complications: None Image Quality: Good, No significant artifacts. Scanner: Albumatic DLP 123.07 mGy 72 cc Isovue-370. 0.4mg SL nitroglycerin administered prior to scan. Radiation dose reduction was achieved by using automated exposure control and or adjustments of mA and/or kV according to patient size and/or use of iterative reconstruction techniques. Coronary Calcium / Agatston scoring: LM: 0 RCA: 0 LAD: 72 LCX: 0 Total: 72 Percentile age/gender cohort: 60th percentile for age, gender and race/ethnicity-matched group per JES[employer] database. Coronary Angiography: Left Main: The left main is a short vessel with a normal take off from the left coronary cusp that bifurcates. There is no plaque or stenosis. Left anterior descending artery: The LAD is patent with mild calcific plaque in the proximal LAD 1-24%. The LAD gives off two diagonal branches, D1 is a large vessel that is widely patent. Left circumflex artery: The LCx is dominant and patent with no evidence of plaque or stenosis. The LCx gives off two obtuse marginal branches that are patent. The PDA arises from the LCx and is patent. Right coronary artery: The RCA is small and non dominant with no evidence of plaque or stenosis. Cardiac Morphology: Left atrium: Left atrial size is Normal Left Ventricle: The ventricular cavity size is within normal limits. There is no abnormal filling defects. Pulmonary Veins: Normal pulmonary venous drainage. Pericardium: Normal thickness with no significant effusion or calcification present. Cardiac valves: There is no thickening or calcification in the aortic and mitral valves. Aorta: Normal caliber of the portion of the thoracic aorta imaged. AAo 30 mm at the PA bifurcation. No calcification. PLEASE SEE SEPARATE RADIOLOGY REPORT FOR THE NONCARDIAC FINDINGS [facility] Radiology Study observation (narrative) [facility] Heart (Wireless Communications Engineer bill acosta)Ordered By: Tara Ahs on 07-31-2024 [facility] Work Phone: CT [facility] HEART (COMPUTER SYSTEM SPECIALIST READ)on 07-31-2024 CT [facility] HEART (COMPUTER SYSTEM SPECIALIST READ) Coronary Computed Angiography Report Patient Name: Chinmay Grimaldo Age: 73 y.o. Requesting Physician: Darian Velasco CNP Interpreting Wireless Communications Engineer: Tara Ash MD Primary Care Physician: Trang Carr Clinical Indication: Chest pain Gender: female Race/Ethnicity: White Cardiovascular risk factors: Hyperlipidemia Prior Imaging: calcium score Procedure: Computed tomographic angiography with contrast, including 3D image post-processing (including evaluation of cardiac structures and morphology, assessment of cardiac function and evaluation of venous structures, if performed) BMI: 25 kg/msq HR: 55 BPM Acquisition mode: Prospective, ECG triggered Complications: None Image Quality: Good, No significant artifacts. Scanner: GE Revolution DLP 123.07 mGy 72 cc Isovue-370. 0.4mg SL nitroglycerin administered prior to scan. Radiation dose reduction was achieved by using automated exposure control and or adjustments of mA and/or kV according to patient size and/or use of iterative reconstruction techniques. Coronary Calcium / Agatston scoring: LM: 0 RCA: 0 LAD: 72 LCX: 0 Total: 72 Percentile age/gender cohort: 60th percentile for age, gender and race/ethnicity-matched group per GREER database. Coronary Angiography: Left Main: The left main is a short vessel with a normal take off from the left coronary cusp that bifurcates. There is no plaque or stenosis. Left anterior descending artery: The LAD is patent with mild calcific plaque in the proximal LAD 1-24%. The LAD gives off two diagonal branches, D1 is a large vessel that is widely patent. Left circumflex artery: The LCx is dominant and patent with no evidence of plaque or stenosis. The LCx gives off two obtuse marginal branches that are patent. The PDA arises from the LCx and is patent. Right coronary artery: The RCA is small and non dominant with no evidence of plaque or stenosis. Cardiac Morphology: Left atrium: Left atrial size is Normal Left Ventricle: The ventricular cavity size is within normal limits. There is no abnormal filling defects. Pulmonary Veins: Normal pulmonary venous drainage. Pericardium: Normal thickness with no significant effusion or calcification present. Cardiac valves: There is no thickening or calcification in the aortic and mitral valves. Aorta: Normal caliber of the portion of the thoracic aorta imaged. AAo 30 mm at the PA bifurcation. No calcification. PLEASE SEE SEPARATE RADIOLOGY REPORT FOR THE NONCARDIAC FINDINGS IMPRESSION: 1. Total calcium score of 72 places patient in the 60th percentile for age, gender and race/ethnicity-matched group per GREER database. 2. Minimal coronary plaque identified by Coronary CT Angiography CAD RADS (score): 1/P1 RECOMMENDATIONS: CAD-RADS 1. 1-24% coronary stenosis. Minimal non-obstructive coronary artery disease. Plaque: P1. Mild coronary artery plaque. Coronary calcium score is 1-100. Segment Involvement Score is 2 or less. Visually 1-2 vessels have mild plaque. Consider risk factor modification and preventive pharmacotherapy. Modifiers: No modifiers are present Exceptions: None Dictated by: TARA ASH on SatJul 31, 2024 11:23:55 AM EST Transcribed by: TARA ASH on SatJul 31, 2024 11:23:55 AM EST Finalized by: TARA ASH on SatJul 31, 2024 11:23:55 AM EST Normal [facility] Comment on above: Order Comment: NPO s tatus not required for this exam however caffeine should be minimized prior to exam. CT [facility] HEART WITH AND WITHO UT CONTRASTon 07-31-2024 CT [facility] HEART WITH AND WITHOUT CONTRAST EXAMINATION: CT [facility] HEART WITH AND WITHOUT CONTRAST HISTORY: ORDERING SYSTEM PROVIDED HISTORY: Chest pain/anginal equiv, low CAD risk, not treadmill candidate. TECHNOLOGIST PROVIDED HISTORY: Illness/Other. Reason for exam: Chest pain, supplemental read. Encounter Type: Subsequent/Followup. ORDERING SYSTEM PROVIDED DIAGNOSIS CODES: R07.9 Chest pain, unspecified type. COMPARISON: 11/17/2022 CTA chest, abdomen and pelvis. TECHNIQUE: CT imaging from the base of the heart to the apex before and after the administration of intravenous contrast. CT calcium score and CTA coronary protocol was utilized. Wireless Communications Engineer will interpret the CT calcium score and CTA coronary portion of the examination. Radiologist will interpret the extracardiac portion of the examination. Dose reduction techniques were achieved by using automated exposure control and/or adjustment of mA and/or kV according to patient size and/or use of iterative reconstruction technique. CONTRAST: Iopamidol 370 mg iodine/mL (76%) intravenous solution - 72 mL. FINDINGS: MEDIASTINUM: Visualized airways are patent. Heart is normal in size without pericardial effusion. The visualized thoracic aorta is normal in caliber without dissection. Main pulmonary artery is normal in caliber. No large or central pulmonary embolus. PLEURAL CAVITY: No pleural effusion. LUNGS: Subsegmental atelectasis of the lower lobes. No focal airspace consolidation. VISUALIZED UPPER ABDOMEN: No acute findings. Left upper pole renal cyst, measures 1.2 x 1.2 cm. BONES: No destructive lesions. IMPRESSION: Lower lobe subsegmental atelectasis. No focal airspace consolidation. Please refer to separate report for dedicated calcium score and cardiac evaluation. /i Workstation ID: [id number] Dictated by: JV TOURE on SatJul 31, 2024 10:51:55 AM EST Transcribed by: RENETTA MACHUCA on SatJul 31, 2024 11:07:52 AM EST Finalized by: JV TOURE on SatJul 31, 2024 10:09:34 PM EST Normal [facility] Comment on above: Order Comment: NPO s tatus not required for this exam however caffeine should be minimized prior to exam. Injury/Trauma or Illness?:Illness/Other How long have you had these symptoms (acute/chronic)?:Acute Reason for exam?:Chest pain, supplemental read Type of Exam?:Subsequent/Follow-up Additional signs and symptoms?:. LIPID PANELon 07-31-2024 Cholesterol [Mass/Vol] 168 mg/dL Normal 100-199 [facility] Comment on above: Performed By: #### 4 [id number] ####[facility] [address] [address] Олег Wheeler M.D. [id number] Cholesterol in HDL [Mass/Vol] 75 mg/dL Normal 40-59 [facility] Comment on above: Performed By: #### 4 [id number] #### LAB [address] [address] Олег Wheeler M.D. [id number] Cholesterol.total/Chol esterol in HDL [Mass ratio] 2.2 {ratio} [facility] Comment on above: Result Comment: Fema le Cholesterol/HDL Ratio: Average risk: 4.4 1/2 average risk: 3.3 2 x average risk: 7.1 Performed By: #### 4 6087 #### LAB [address] [address] Олег Wheeler M.D. [id number] LDL CHOLESTEROL CALCULATED 80 mg/dL Normal 10-130 [facility] Comment on above: Result Comment: [employer] Cholesterol Education Program Guidelines: LDL Cholesterol Optimal: <100 mg/dL Near Optimal/above Optimal: 100-129 mg/dL Borderline High: 130-159 mg/dL High: 160-189 mg/dL Very High: greater than or equal to 190 mg/dL Performed By: #### 4 6081 ####[facility] LAB [address] [address] Олег Wheeler M.D. [id number] NON HDL CHOL 93 mg/dL [facility] Comment on above: Result Comment: [employer] Cholesterol Education Program Guidelines: NON HDL Cholesterol Desirable: <130 mg/dL Borderline High: 130-159 mg/dL High: 160-189 mg/dL Very High: > or = 190 mg/dL Performed By: #### 4 6087 #### LAB [address] [place], [place] [address] Олег Wheeler M.D. [id number] Triglyceride [Mass/Vol] 66 mg/dL Normal 30-150 [facility] Comment on above: Performed By: #### 4 [id number] #### LAB [address] [place], [place] [address] Олег Wheeler M.D. [id number] Lipid 1996 panelon Cholesterol [Mass/Vol] 168 mg/dL 100 - 199 mg/dL [facility] Cholesterol in HDL [Mass/Vol] 75 mg/dL 40 - 59 mg/dL [facility] Cholesterol in LDL [Mass/Vol] 80 mg/dL 10 - 130 mg/dL [facility] Comment on above: National Cholesterol Education Program Guidelines: LDL Cholesterol Optimal: <100 mg/dL Near Optimal/above Optimal: 100-129 mg/dL Borderline High: 130-159 mg/dL High: 160-189 mg/dL Very High: greater than or equal to 190 mg/dL Cholesterol non HDL [Mass/Vol] 93 mg/dL [facility] Comment on above: National Cholesterol Education Program Guidelines: NON HDL Cholesterol Desirable: <130 mg/dL Borderline High: 130-159 mg/dL High: 160-189 mg/dL Very High: > or = 190 mg/dL Cholesterol.total/Chol esterol in HDL [Mass ratio] 2.2 {ratio} ratio [facility] Comment on above: Female Cholesterol/H DL Ratio: Average risk: 4.4 1/2 average risk: 3.3 2 x average risk: 7.1 Triglyceride [Mass/Vol] 66 mg/dL 30 - 150 mg/dL [facility] TROPONINon 07-31-2024 TROPONIN T DELTA CHANGE INTERPRETATION No biomarker evidence of cardiac injury. Normal [facility] Comment on above: Performed By: #### 4 6608 #### LAB [address] [place], [place] [address] Олег Wheeler M.D. [id number] TROPONIN T NG/L < Normal <=14 [facility] Comment on above: Performed By: #### 4 6608 ####[facility] LAB [address] [place] [address] Олег Wheeler M.D. [id number] Troponinon 07-31-2024 Interp Troponin T Delta Change No biomarker evidence of cardiac injury. [facility] Troponin T ng/L NINF - 14 ng/L [facility] BNP (NT Pro BNP)on 4 Natriuretic peptide.B prohormone N-Terminal [Mass/Vol] 89 pg/mL 0 - 300 pg/mL [facility] CBC Auto Differentialon 07-12 Basophils (Bld) [#/Vol] 0.03 10*3/uL [facility] Basophils/100 WBC (Bld) 0.5 % [facility] Eosinophils (Bld) [#/Vol] 0.02 10*3/uL [facility] Eosinophils/100 WBC (Bld) 0.4 % [facility] Erythrocyte distribution width (RBC) [Entitic vol] 13.3 % 11.6 - 14.8 % [facility] Hematocrit (Bld) [Volume fraction] 39.7 % 36.0 - 46.0 % [facility] Hemoglobin (Bld) [Mass/Vol] 12.7 g/dL 12.0 - 16.0 g/dL [facility] Immature granulocytes (Bld) [#/Vol] 0.03 10*3/uL [facility] Immature granulocytes/100 WBC (Bld) 0.5 % [facility] Comment on above: The IG parameter is the percentage of metamyelocytes, myelocytes and promyelocytes. An immature granulocyte count (IG) of 1% or more suggests the possibility of infection, an IG count of 3% is very likely related to an infection. Lymphocytes (Bld) [#/Vol] 1.07 10*3/uL [facility] Lymphocytes/100 WBC (Bld) 18.9 % [facility] MCH (RBC) [Entitic mass] 29.5 pg 26.0 - 34.0 pg [facility] MCHC (RBC) [Mass/Vol] 32 g/dL 31.0 - 37.0 g/dL [facility] MCV (RBC) [Entitic vol] 92.3 fL 80.0 - 100.0 fL [facility] Monocytes (Bld) [#/Vol] 0.4 10*3/uL [facility] Monocytes/100 WBC (Bld) 7.1 % [facility] Neutrophils (Bld) [#/Vol] 4.11 10*3/uL [facility] Neutrophils/100 WBC (Bld) 72.6 % [facility] Nucleated RBC (Bld) [#/Vol] 0 10*3/uL [facility] Nucleated RBC/100 WBC (Bld) [Ratio] 0 % [facility] Platelet mean volume (Bld) [Entitic vol] 10 fL 9.4 - 12.4 fL [facility] Platelets (Bld) [#/Vol] 224 10*3/uL [facility] RBC (Bld) [#/Vol] 4.3 10*6/uL [facility] alth WBC (Bld) [#/Vol] 5.66 10*3/uL [facility] WITH AUTO DIFFERENTIALon 07-30-2024 AUTO NRBC 0.0 % [facility] Comment on above: Performed By: #### L [id number] #### LAB [address] [address] Олег Wheeler M.D. [id number] AUTO NRBC ABS COUNT 0.00 K/mcL Normal 0.00-0.00 [facility] Comment on above: Performed By: #### L [id number] #### LAB [address] [address] Олег Wheeler M.D. [id number] BASOPHILS ABSOLUTE COUNT 0.03 K/mcL Normal 0.00-0.30 [facility] Comment on above: Performed By: #### L [id number] #### LAB [address] [address] Олег Wheeler M.D. [id number] Basophils/100 WBC (Bld) 0.5 % [facility] Comment on above: Performed By: #### L [id number] #### LAB [address] [address] Олег Wheeler M.D. [id number] Eosinophils (Bld) [#/Vol] 0.02 10*3/uL Normal 0.00-0.50 [facility] Comment on above: Performed By: #### L [id number] #### LAB [address] [address] Олег Wheeler M.D. [id number] Eosinophils/100 WBC (Bld) 0.4 % Normal [facility] Comment on above: Performed By: #### L [id number] #### LAB [address] [address] Олег Wheeler M.D. [id number] Erythrocyte distribution width (RBC) [Ratio] 13.3 % Normal 11.6-14.8 [facility] Comment on above: Performed By: #### L [id number] #### LAB [address] [address] Олег Wheeler M.D. [id number] Hematocrit (Bld) [Volume fraction] 39.7 % Normal 36.0-46.0 [facility] Comment on above: Performed By: #### L [id number] #### LAB [address] [address] Олег Wheeler M.D. [id number] Hemoglobin (Bld) [Mass/Vol] 12.7 g/dL Normal 12.0-16.0 [facility] Comment on above: Performed By: #### L [id number] #### LAB [address] [address] Олег Wheeler M.D. [id number] IG ABSOLUTE 0.03 K/mcL Normal 0.00-0.30 [facility] Comment on above: Performed By: #### L [id number] #### LAB [address] [address] Олег Wheeler M.D. [id number] IG PERCENT 0.50 % Normal [facility] Comment on above: Result Comment: The IG parameter is the percentage of metamyelocytes, myelocytes and promyelocytes. An immature granulocyte count (IG) of 1% or more suggests the possibility of infection, an IG count of 3% is very likely related to an infection. Performed By: #### L [id number] #### LAB [address] [place] [address] Олег Wheeler M.D. [id number] Lymphocytes (Bld) [#/Vol] 1.07 10*3/uL Normal 0.90-4.00 [facility] Comment on above: Performed By: #### L [id number] #### LAB [address] [address] Олег Wheeler M.D. [id number] Lymphocytes/100 WBC (Bld) 18.9 % Normal [facility] Comment on above: Performed By: #### L [id number] #### LAB [address] [address] Олег Wheeler M.D. [id number] MCH (RBC) [Entitic mass] 29.5 pg Normal 26.0-34.0 [facility] Comment on above: Performed By: #### L [id number] #### LAB [address] [address] Олег Wheeler M.D. [id number] MCV (RBC) [Entitic vol] 92.3 fL Normal 80.0-100.0 [facility] Comment on above: Performed By: #### L [id number] #### LAB [address] [address] Олег Wheeler M.D. [id number] MEAN CORPUSCULAR HEMOGLOBIN CONC 32.0 g/dL Normal 31.0-37.0 [facility] Comment on above: Performed By: #### L [id number] #### LAB [address] [address] Олег Wheeler M.D. [id number] Monocytes (Bld) [#/Vol] 0.40 10*3/uL Normal 0.30-0.90 [facility] Comment on above: Performed By: #### L [id number] #### LAB [address] [address] Олег Wheeler M.D. [id number] Monocytes/100 WBC (Bld) 7.1 % Normal [facility] Comment on above: Performed By: #### L [id number] #### LAB [address] [address] Олег Wheeler M.D. [id number] NEUTROPHILS ABSOLUTE COUNT 4.11 K/mcL Normal 1.70-7.00 [facility] Comment on above: Performed By: #### L [id number] #### LAB [address] [address] Олег Wheeler M.D. [id number] Neutrophils/100 WBC (Bld) 72.6 % Normal [facility] Comment on above: Performed By: #### L [id number] #### LAB [address] [address] Олег Wheeler M.D. [id number] Platelet mean volume (Bld) [Entitic vol] 10.0 fL Normal 9.4-12.4 [facility] Comment on above: Performed By: #### L [id number] #### LAB [address] [address] Олег Wheeler M.D. [id number] Platelets (Bld) [#/Vol] 224 10*3/uL Normal 150-400 [facility] Comment on above: Performed By: #### L [id number] #### LAB [address] [address] Олег Wheeler M.D. [id number] RBC (Bld) [#/Vol] 4.30 10*6/uL Normal 4.00-5.20 [facility] Comment on above: Performed By: #### L [id number] #### LAB [address] [address] Олег Wheeler M.D. [id number] WBC (Bld) [#/Vol] 5.66 10*3/uL Normal 4.50-11.00 [facility] Comment on above: Performed By: #### L [id number] #### LAB [address] [address] Олег Wheeler M.D. [id number] COMPREHENSIVE METABOLIC PANE [facility] 07-30-2024 Albumin [Mass/Vol] 4.7 g/dL Normal 3.2-5.2 [facility] Comment on above: Order Comment: [facility] has implemented the eGFR calculation approach that does not have a coefficient for race that conforms to the NKF-ASN Task Force Recommendations. Performed By: #### 4 6126 #### LAB [address] [address] Олег Wheeler M.D. [id number] ALP [Catalytic activity/Vol] 80 U/L Normal 40-150 [facility] Comment on above: Order Comment: [facility] has implemented the eGFR calculation approach that does not have a coefficient for race that conforms to the NKF-ASN Task Force Recommendations. Performed By: #### 4 6126 #### LAB [address] [address] Олег Wheeler M.D. [id number] ALT [Catalytic activity/Vol] 10 U/L Normal 0-35 U/L [facility] Comment on above: Order Comment: [facility] has implemented the eGFR calculation approach that does not have a coefficient for race that conforms to the NKF-ASN Task Force Recommendations. Performed By: #### 4 6126 #### LAB [address] [address] Олег Wheeler M.D. [id number] Anion gap [Moles/Vol] 13 mmol/L Normal 10-20 [facility] Comment on above: Order Comment: [facility] has implemented the eGFR calculation approach that does not have a coefficient for race that conforms to the NKF-ASN Task Force Recommendations. Performed By: #### 4 6126 #### LAB [address] [address] Олег Wheeler M.D. [id number] AST [Catalytic activity/Vol] 18 U/L Normal 0-35 U/L [facility] Comment on above: Order Comment: [facility] has implemented the eGFR calculation approach that does not have a coefficient for race that conforms to the NKF-ASN Task Force Recommendations. Performed By: #### 4 6126 #### LAB [address] [address] Олег Wheeler M.D. [id number] Bilirubin [Mass/Vol] 0.2 mg/dL Normal 0.0-1.3 [facility] Comment on above: Order Comment: [facility] has implemented the eGFR calculation approach that does not have a coefficient for race that conforms to the NKF-ASN Task Force Recommendations. Performed By: #### 4 6126 #### LAB [address] [address] Олег Wheeler M.D. [id number] Calcium [Mass/Vol] 9.9 mg/dL Normal 8.4-10.2 [facility] Comment on above: Order Comment: [facility] has implemented the eGFR calculation approach that does not have a coefficient for race that conforms to the NKF-ASN Task Force Recommendations. Performed By: #### 4 6126 #### LAB [address] [address] Олег Wheeler M.D. [id number] Chloride [Moles/Vol] 104 mmol/L Normal 98-108 [facility] Comment on above: Order Comment: [facility] has implemented the eGFR calculation approach that does not have a coefficient for race that conforms to the NKF-ASN Task Force Recommendations. Performed By: #### 4 6126 #### LAB [address] [address] Олег Wheeler M.D. [id number] Creatinine [Mass/Vol] 0.73 mg/dL Normal 0.60-1.10 [facility] Comment on above: Order Comment: [facility] has implemented the eGFR calculation approach that does not have a coefficient for race that conforms to the NKF-ASN Task Force Recommendations. Performed By: #### 4 6126 #### LAB [address] [address] Олег Wheeler M.D. [id number] EGFR 87 mL/min/1.73 m2 Normal >=60 [facility] Comment on above: Order Comment: [facility] has implemented the eGFR calculation approach that does not have a coefficient for race that conforms to the NKF-ASN Task Force Recommendations. Result Comment: Jyothi mated GFR was calculated using the 2020 CKD-EPI creatinine equation. Performed By: #### 4 6165 #### LAB [address] [address] Олег Wheeler M.D. [id number] Glucose [Mass/Vol] 106 mg/dL High 65-99 [facility] Comment on above: Order Comment: [facility] has implemented the eGFR calculation approach that does not have a coefficient for race that conforms to the NKF-ASN Task Force Recommendations. Performed By: #### 4 6126 #### LAB [address] [address] Олег Wheeler M.D. [id number] HCO3 (Bld) [Moles/Vol] 28 mmol/L Normal 21-32 [facility] Comment on above: Order Comment: [facility] has implemented the eGFR calculation approach that does not have a coefficient for race that conforms to the NKF-ASN Task Force Recommendations. Performed By: #### 4 6126 #### LAB [address] [address] Олег Wheeler M.D. [id number] Potassium [Moles/Vol] 3.8 mmol/L Normal 3.5-5.1 [facility] Comment on above: Order Comment: [facility] has implemented the eGFR calculation approach that does not have a coefficient for race that conforms to the NKF-ASN Task Force Recommendations. Performed By: #### 4 6126 #### LAB [address] [address] Олег Wheeler M.D. [id number] Protein [Mass/Vol] 7.3 g/dL Normal 6.0-8.0 [facility] Comment on above: Order Comment: [facility] has implemented the eGFR calculation approach that does not have a coefficient for race that conforms to the NKF-ASN Task Force Recommendations. Performed By: #### 4 6126 #### LAB [address] [address] Олег Wheeler M.D. [id number] Sodium [Moles/Vol] 141 mmol/L Normal 135-145 [facility] Comment on above: Order Comment: [facility] has implemented the eGFR calculation approach that does not have a coefficient for race that conforms to the NKF-ASN Task Force Recommendations. Performed By: #### 4 6126 #### LAB [address] [id number] Олег Wheeler M.D. [id number] Urea nitrogen [Mass/Vol] 12 mg/dL Normal 8-25 [facility] Comment on above: Order Comment: [facility] has implemented the eGFR calculation approach that does not have a coefficient for race that conforms to the NKF-ASN Task Force Recommendations. Performed By: #### 4 6126 #### LAB [address] [address] Олег Wheeler M.D. [id number] Urea nitrogen/Creatinine [Mass ratio] 16.4 mg/mg Normal 10.0-20.0 [facility] Comment on above: Order Comment: [facility] has implemented the eGFR calculation approach that does not have a coefficient for race that conforms to the NKF-ASN Task Force Recommendations. Performed By: #### 4 6126 #### LAB [address] [place], [place] [address] Олег Wheeler M.D. [id number] Comprehensive metabolic 2000 panelon 07-30-2024 Albumin [Mass/Vol] 4.7 g/dL 3.2 - 5.2 g/dL [facility] ALP [Catalytic activity/Vol] 80 U/L 40 - 150 U/L [facility] ALT [Catalytic activity/Vol] 10 U/L 0-35 U/L [facility] Anion gap [Moles/Vol] 13 mmol/L 10 - 2 0 mmol/L [facility] AST [Catalytic activity/Vol] 18 U/L 0-35 U/L [facility] Bilirubin [Mass/Vol] 0.2 mg/dL 0.0 - 1 .3 mg/dL [facility] Calcium [Mass/Vol] 9.9 mg/dL 8.4 - 10. 2 mg/dL [facility] Chloride [Moles/Vol] 104 mmol/L 98 - 10 8 mmol/L [facility] Creatinine [Mass/Vol] 0.73 mg/dL 0.60 - 1.10 mg/dL [facility] GFR/1.73 sq M.predicted CKD-EPI (S/P/Bld) [Vol rate/Area] 87 - PINF [facility] Comment on above: Estimated GFR was ca lculated using the 2020 CKD-EPI creatinine equation. Glucose [Mass/Vol] 106 mg/dL High 65 - 99 mg/dL [facility] HCO3 [Moles/Vol] 28 mmol/L 21 - 32 mmol/L [facility] Interpretation and review of laboratory results Abnormal [facility] Potassium [Moles/Vol] 3.8 mmol/L 3.5 - 5.1 mmol/L [facility] Protein [Mass/Vol] 7.3 g/dL 6.0 - 8.0 g/dL [facility] Sodium [Moles/Vol] 141 mmol/L 135 - 145 mmol/L [facility] Urea nitrogen [Mass/Vol] 12 mg/dL 8 - 25 mg/dL [facility] Urea nitrogen/Creatinine [Mass ratio] 16.4 mg/mg 10.0 - 20.0 [facility] has implemented the eGFR calculation approach that does not have a coefficient for race that conforms to the NKF-ASN Task Force Recommendations. [facility] D-DIMER, QUANTITATIVEon 07-12 D-DIMER QUANTITATIVE < Normal 0.27-0.49 [facility] Comment on above: Order Comment: A D-d leonides concentration of <0.5 micrograms per milliliter FEU is considered a low probability for pulmonary embolus (PE) and deep venous thrombosis (DVT). Results of this test should always be interpreted in conjunction with the patient's medical history,clinical presentation, and other findings. Clinical diagnosis should not be based on the results of the D-dimer alone. Performed By: #### 4 5434 ####[facility] [address] [place], [place] [address] Олег Wheeler M.D. [id number] D-DimerOrdered By: Anna brooks on 07-30-2024 Fibrin D-dimer FEU (PPP) [Mass/Vol] [facility] Interpretation and review of laboratory results Normal [facility] A D-dimer concentrat ion of <0.5 micrograms per milliliter FEU is considered a low probability for pulmonary embolus (PE) and deep venous thrombosis (DVT). Results of this test should always be interpreted in conjunction with the patient's medical history,clinical presentation, and other findings. Clinical diagnosis should not be based on the results of the D-dimer alone. [facility] ED Prov Noteon 07-30-2024 ED Prov Note [facility] ED note NAME: Chinmay Grimaldo 73 y.o. CSN: [id number] PCP: Trang Carr MD History: Chief Complaint: Chest Pain HPI: Patient is a 73-year-old female present to the ED with complaint of chest. Patient states she has had rapid heart rate and chest discomfort she was seen by cardiology wore Holter monitor for a week she was told it was rapid heart rate no other abnormality she was told to follow-up with her PCP. Denies history of CAD [place] PE pneumothorax she said about 15 years ago she had a stress test followed by cardiac cath which was unremarkable. She said the past few days she has had diffuse anterior chest discomfort radiating to bilateral upper arm. No traumas or falls no shortness of breath or difficulty breathing . Denies history of diabetes hypertension denies history of smoking denies recent travel hospitalization or sick contact and no bowel or bladder. PMHx: Past Medical History: Diagnosis Date Palpitations PMSx: Past Surgical History: Procedure Laterality Date APPENDECTOMY CARDIAC CATHETERIZATION 05/2003 no angiographically definable CAD CYSTO 1996 FAM. Hx: History reviewed. No pertinent family history. SOC. Hx: Social History Socioeconomic History Marital status: Tobacco Use Smoking status: Never Smokeless tobacco: Never Vaping Use Vaping status: Never Used Substance and Sexual Activity Alcohol use: Yes Comment: social Drug use: Never Social Drivers of Health Food Insecurity: No Food Insecurity (07/30/2024) Hunger Vital Sign Worried About Running Out of Food in the Last Year: Never true Ran Out of Food in the Last Year: Never true Transportation Needs: No Transportation Needs (07/30/2024) PRAPARE - Transportation Lack of Transportation (Medical): No Lack of Transportation (Non-Medical): No Housing Stability: Low Risk (07/30/2024) Housing Stability Vital Sign Unable to Pay for Housing in the Last Year: No Number of Times Moved in the Last Year: 1 Homeless in the Last Year: No MEDs: Previous Medications Medication Sig acetaminophen (TYLENOL) 500 MG tablet Take 2 (two) tablets (1,000 mg total) by mouth every 6 (six) hours as needed for pain . cholecalciferol, vitamin D3, 125 mcg (5,000 unit) capsule Take 1 (one) capsule (5,000 Units total) by mouth daily . cyanocobalamin (vitamin B-12) 1000 MCG tablet Take 1 (one) tablet (1,000 mcg total) by mouth every other day . denosumab (Prolia) 60 mg/mL Syrg Inject 60 (sixty) mg under the skin every 6 (six) months . pantoprazole (PROTONIX) 40 MG tablet Take 1 (one) tablet (40 mg total) by mouth daily . rosuvastatin (CRESTOR) 10 MG tablet Take 1 (one) tablet (10 mg total) by mouth nightly . traZODone (DESYREL) 50 MG tablet Take 1 (one) tablet (50 mg total) by mouth nightly . (Patient taking differently: Take 1 (one) tablet (50 mg total) by mouth nightly as needed for sleep .) ALL: Allergies Allergen Reactions Boniva [Ibandronate] Anaphylaxis ROS: Review of Systems All other systems reviewed and are negative. Positives and pertinent negatives as per HPI. All other systems were reviewed and are negative. Physical Exam: Patient Vitals for the past 24 hrs: BP Temp Temp src Pulse Resp SpO2 Height Weight 07/31/24 0901 -- -- -- 70 -- -- -- -- 07/31/24 0322 (!) 102/59 97.8 degrees F (36.6 degrees C) Oral 66 16 96 % -- -- 07/30/24 2308 122/66 98.2 degrees F (36.8 degrees C) Oral 68 16 97 % -- -- 07/30/24 2230 122/82 -- -- 64 17 96 % -- -- 07/30/24 2200 128/71 -- -- 67 (!) 19 97 % -- -- 07/30/24 2100 (!) 129/59 -- -- 73 (!) 21 97 % -- -- 07/30/247 137/69 -- -- 69 (!) 23 97 % -- -- 07/30/242006 129/68 -- -- 69 14 97 % -- -- 07/30/241951 134/65 -- -- 68 18 98 % -- -- 07/30/24 1829 (!) 146/77 98.5 degrees F (36.9 degrees C) Oral 79 16 95 % 5' 3 62.6 kg (138 lb) Physical Exam Vitals and nursing note reviewed. Constitutional: General: She is not in acute distress. Appearance: She is well-developed. She is not ill-appearing. HENT: Head: Normocephalic and atraumatic. Eyes: Extraocular Movements: Extraocular movements intact. Pupils: Pupils are equal, round, and reactive to light. Cardiovascular: Rate and Rhythm: Normal rate and regular rhythm. Heart sounds: Normal heart sounds. Musculoskeletal: General: Normal range of motion. Cervical back: Normal range of motion and neck supple. Right lower leg: No edema. Left lower leg: No edema. Pulmonary: Effort: Pulmonary effort is normal. Breath sounds: Normal breath sounds. Abdominal: General: Bowel sounds are normal. Palpations: Abdomen is soft. Skin: General: Skin is warm. Neurological: General: No focal deficit present. Mental Status: She is alert. Laboratory & Radiological Imaging (if done): Labs Reviewed COMPREHENSIVE METABOLIC PANEL - Abnormal; Notable for the following components: Result Value Glucose 106 (*) All (more content not included)... Normal [facility] EKGon 07-30-2024 [facility] EKG 12-leadon 07-30-2024 Atrial Rate 75 BPM [facility] P [place] 65 degrees [facility] P-R Interval 148 ms [facility] Q-T Interval 368 ms [facility] QRS Duration 84 ms [facility] QTC Calculation (Bezet) 410 ms [facility] R [place] 45 degrees [facility] T [place] 56 degrees [facility] Ventricular Rate 75 BPM [facility] Yisel Josue MD 07/31/2024 10:04 AM EKG 12-lead Date/Time: 07/30/2024 7:36 PM Performed by: Yisel Josue MD Authorized by: Yisel Josue MD Interpreted by ED attending physician Rhythm: sinus rhythm BPM: 75 Conduction: conduction normal ST Segments: ST segments normal T Waves: T waves normal Clinical impression: non-specific ECG Comments: EKG with normal sinus rhythm rate of 75 beats per minutes [place] interval 148 ms QRS duration 84 ms QTc [address]-T wave abnormalities. MUSE [facility] H AND Conor 07-30-2024 H AND P --- Attestation signed by Jere Colon DO at 07/31/2024 1:58 AM (Updated) I personally assessed the patient and reviewed the history, physical exam, assessment, and plan documented by the SHAMAR. The case was discussed, and I agree with the plan. Briefly, Ms. Grimaldo is a 73-year-old female who presented with chest discomfort. No radiation. No association with exertion. Outpatient workup so far nonischemic in etiology. In the ED, EKG unremarkable, chest x-ray unremarkable, Trope negative. Etiology suspected to be gastrointestinal, however, admitted patient as ACS rule out given heart score of 5. Trend troponins. Serial EKGs. Consider referral to GI for EGD--given uncontrolled GERD for the past 5 years. Will add sucralfate. Will continue to monitor and adjust care as needed. [facility] HISTORY AND PHYSICAL -- [facility] Patient Name: Chinmay Grimaldo : 1950 MR #: [id number] Admit Date: 07/30/2024 Physicians: Trang Carr MD (Family); No ref. provider found (Referring) Chinmay Grimaldo is a 73 y.o. female patient of Trang Carr MD with history of GERD who presented to [facility] on 07/30/2024 with chest pain. Chest pain Pt with chest discomfort starting earlier today Stated she had heartburn symptoms after eating sweets yesterday, denies any previous heartburn symptoms Recently had holter monitor placed, was told by her PCP she had tachycardia CXR negative for acute findings EKG sinus rhythm, no ST changes noted Troponin <6, repeat pending. D-dimer negative Monitor on telemetry If symptoms worsen or troponin elevated, consult cardiology GERD Continue PPI HLD Continue statin Residence prior to admission: house or apartment Was patient transferred from outlying hospital or ED no Quality Measures DVT Prophylaxis: ambulation only Cordero Catheter: absent Medication Reconciliation: Verified Admitted with these risk variables:None. Please see assessment and plan for further details. Estimated Date of Discharge less than 2 midnights Code Status Full Code; code status verified on 07/30/2024 with patient (capacity intact) Chief Complaint Chest pain History of Present Illness Chinmay Grimaldo is a 73 y.o. female patient of Trang Carr MD with history of GERD who presented to [facility] on 07/30/2024 with chest pain. Pt stated she started having chest pain earlier today. She was unable to describe the pain, just described it as a sensation in the left side of her chest. It did not worsen with activity or improve with rest. Did not change with deep inspiration. She went to [facility] for further evaluation. EKG unremarkable. CXR negative for acute findings. Pt was given no meds while in ED. On exam, pt states she still has a sensation in my chest. She stated she had some bad heartburn after eating sweets yesterday. She is on protonix and has not had heartburn symptoms in a long time. She recently wore a holter monitor and was told by her PCP that she had tachycardia' on her holter monitor. She was not told what the rate was. She denies shortness of breath, palpitations, dizziness, lightheadedness, fever, chills. Past Medical History Past Medical History: Diagnosis Date Palpitations Past Surgical History Past Surgical History: Procedure Laterality Date APPENDECTOMY CARDIAC CATHETERIZATION 05/2003 no angiographically definable CAD CYSTO 1996 Family History History reviewed. No pertinent family history. Social History Social History Tobacco Use Smoking Status Never Smokeless Tobacco Never Social History Substance and Sexual Activity Alcohol Use Yes Comment: social Social History Substance and Sexual Activity Drug Use Never Allergy Information I have reviewed the patient's allergies. Boniva [ibandronate] Home Medications Home medications were reviewed. Review Of Systems All relevant systems have been reviewed and are negative except as noted in HPI or below Physical Examination BP (!) 129/59 Pulse 73 Temp 98.5 degrees F (36.9 degrees C) (Oral) Resp (!) 21 Ht 5' 3 Wt 62.6 kg (138 lb) SpO2 97% BMI 24.45 kg/m General Appearance: alert; well appearing; in no acute distress HEENT: Head- normocephalic; Eyes- EOMI, sclera anicteric; Throat- mucous membranes moist Cardiovascular: regular rate and rhythm; normal S1, S2; no murmurs, rubs, clicks or gallops; peripheral edema absent Respiratory: lungs clear to auscultation; without wheezes, rales or rhonchi; on room air Abdomen: soft, non-tender, non-distended Neurological: oriented x 3; normal speech; no focal findings or movement disorder noted Musculoskeletal: no significant deformity or tenderness to palpation Skin: normal coloration Psych: (more content not included)... Normal [facility] LIPASEon 07-30-2024 Lipase [Catalytic activity/Vol] 42 U/L Normal 15-65 [facility] Comment on above: Performed By: #### 4 [id number] #### LAB [address] [place], [place] [address] Олег Wheeler M.D. [id number] Light Blue Topon 07-30-2024 Extra Tube Hold for add-ons. [facility] Comment on above: Auto resulted. [facility] Lipaseon 07-30-2024 Lipase [Catalytic activity/Vol] 42 U/L 15 - 65 U/L [facility] NT PRO BNPon 07-30-2024 Natriuretic peptide B (Bld) [Mass/Vol] 89 pg/mL Normal 0-300 [facility] Comment on above: Order Comment: Pride Study Cut-offsRule In:< /= 50 Years >450 pg/mL51 Years - 75 Years >900 pg/mL76 Years - 99 Years >1800 pg/mLRule Out:All patients <300 pg/mL Performed By: #### 4 [id number] ####[facility] [address] [place] [id number] Олег Wheeler M.D. [id number] Natriuretic peptide.B mary anne bustamante N-Terminal [Mass/Vol]on 07-30-2024 Pride Study Cut-offs Rule In: < /= 50 Years >450 pg/mL 51 Years - 75 Years >900 pg/mL 76 Years - 99 Years >1800 pg/mL Rule Out: All patients <300 pg/mL [facility] No Panel Informationon 07-30 Interpretation and review of laboratory results Normal [facility] TROPONINon 07-30-2024 TROPONIN T DELTA CHANGE INTERPRETATION No biomarker evidence of cardiac injury. Normal [facility] Comment on above: Performed By: #### 4 6608 #### [address] [place] [address] Олег Wheeler M.D. [id number] TROPONIN T NG/L < Normal <=14 [facility] Comment on above: Performed By: #### 4 6608 #### [facility] [address] [place] [address] Олег Wheeler M.D. [id number] BASELINE TROPONIN T NG/L < Normal <=14 [facility] Comment on above: Performed By: #### 4 [id number] #### LAB [address] [place] [address] Олег Wheeler M.D. [id number] TROPONIN T INTERPRETATION Normal Normal [facility] Comment on above: Performed By: #### 4 6608 #### [address] [place] [address] Олег Wheeler M.D. [id number] Troponinon 07-30-2024 Interp Troponin T Delta Change No biomarker evidence of cardiac injury. [facility] Troponin T ng/L NINF - 14 ng/L [facility] Troponin x 2 (Now and Repeat in 3 hours)Ordered By: Adrienne Dolan on 07-30-2024 Troponin T ng/L NINF - 14 ng/L [facility] Troponin T Interpretation Normal [facility] XR CHEST PA/APon 07-30-2024 XR CHEST PA/AP EXAMINATION: 1 VIEW XR CHEST PA/AP, 07/30/2024 COMPARISON: Chest, 09/06/2019 HISTORY: Injury/Trauma or Illness?:Illness/Other How long have you had these symptoms (acute/chronic)?:Acute chest pain IMPRESSION: 1. Minimal linear atelectasis or scarring in the left lower lung zone. 2. Normal heart size. 3. No acute osseous abnormality. GJT/alt Workstation ID: [id number] Dictated by: ROSINA SPEARS on SatJul 30, 2024 8:43:50 PM EST Transcribed by: DAWSON MILES on SatJul 30, 2024 8:59:38 PM EST Finalized by: ROSINA SPEARS on Andreina Jul 30, 2024 9:41:06 PM EST Normal [facility] Comment on above: Order Comment: Injur y/Trauma or Illness?:Illness/Other How long have you had these symptoms (acute/chronic)?:Acute Reason for exam?:chest pain History of cancer?:U Surgeries, chemotherapy, or radiation?:U Type of Exam?:Initial Additional signs and symptoms?:n XR Chest PA and Abdomen APon 07-30-2024 1. Minimal linear atelectasis or scarring in the left lower lung zone. 2. Normal heart size. 3. No acute osseous abnormality. GJT/alt Workstation ID: [id number] GE RIS EXAMINATION: 1 VIEW XR CHEST PA/AP, 07/30/2024 COMPARISON: Chest, 09/06/2019 HISTORY: Injury/Trauma or Illness?:Illness/Other How long have you had these symptoms (acute/chronic)?:Acute chest pain GE RIS Rosina Spears MD - 07/30/2024 EXAMINATION: 1 VIEW XR CHEST PA/AP, 07/30/2024 COMPARISON: Chest, 09/06/2019 HISTORY: Injury/Trauma or Illness?:Illness/Other How long have you had these symptoms (acute/chronic)?:Acute chest pain IMPRESSION: 1. Minimal linear atelectasis or scarring in the left lower lung zone. 2. Normal heart size. 3. No acute osseous abnormality. GJT/alt Workstation ID: [id number] [facility] Radiology Study observation (narrative) [facility] XR Chest PA and Abdomen APOr dered By: Rosina Spears on 07-30-2024 [facility] Work Phone: Urine Cultureon 06-20-2024 URC Culture exhibits no growth. Normal [facility] Comment on above: Performed By: #### M 100.2200 #### [facility] Laboratory [address] [place], [address] Wound Ctr History AND Physic porfirio 04-23-2024 Wound Ctr History & Physical [facility] [address] [place] [address] H P Exam - Wound Care 04/23/24 1058 MR#: [id number] Acct: [id number] Name: CHINMAY GRIMALDO Rep #: [id number] : 1950 73 From: Daniel Upton DPM PCP: Dr. Trang Carr MD Status:REG R Location: History of Present Illness Date of Service: 04/23/24 Chief Complaint: Left plantar foot ulceration secondary to puncture History of Wound: This is a 73-year-old female who is otherwise healthy presenting to the wound care center today for ulceration to the plantar aspect of the left foot secondary to a puncture suffered on February 27, 2024. Patient had been watering her garden when she noticed a kink in the hose where she went to straighten this and stepped on an old piece of metal from a yard sign that had broken off. Patient admits to being barefoot while this did occur. She had been applying antibiotic ointment and bandages and changing dressing daily. She did follow-up with her PCP Dr. Carr who did place her on oral antibiotic which she has completed. She was referred to the wound care center for delayed healing of the puncture wound and for further evaluation. 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 She reports she is continue to ambulate in supportive shoe gear and has not gone barefoot since. Denies N/V/F/chills. Denies further complaints. PFSH Home Medications ???Medication ???Instructions ???Recorded ???Last Taken ???Type denosumab 60 mg/mL subcutaneous mg subcut 04/23/24 Unknown History syringe (Prolia) pantoprazole 40 mg tablet,delayed 40 mg PO DAILY 04/23/24 Unknown History release rosuvastatin 10 mg tablet 10 mg PO QHS 04/23/24 Unknown History Allergy/AdvReac Type Severity Reaction Status Date / Time ibandronate sodium (From Allergy sore throat Verified 04/23/24 10:24 Boniva) ROS Constitutional Constitutional: Denies anorexia, chills or fever(s) Eyes Eyes: Denies blurry vision, change in vision or double vision ENT HEENT: Denies dysphagia, nasal congestion or sore throat Cardiovascular Cardiovascular: Denies chest pain, claudication or palpitations Respiratory/Chest Respiratory/Chest: Denies cough, shortness of breath at rest or wheezing Gastrointestinal Gastrointestinal: Denies abdominal pain, constipation, diarrhea, nausea or vomiting Genitourinary Genitourinary: Denies dysuria, hematuria, urinary hesitancy or urinary urgency Musculoskeletal Musculoskeletal: Denies joint pain, joint stiffness or joint swelling Integumentary Integumentary: Denies lesions, pruritus or rash Neurologic Neurologic: Denies dizziness, numbness or seizures Psychiatric Psychiatric: Denies anxiety or depression Endocrine Endocrinology: Denies cold intolerance or heat intolerance Hematologic/Lymphatic Hematologic/Lymphatic: Denies easy bleeding or easy bruising Vital Signs Vital Signs Vital Signs: 04/23/24 10:22 Temperature 98.3 F Temperature Source Temporal Pulse Rate 63 Respiratory Rate 18 Blood Pressure 142/61 H Blood Pressure Mean 88 Blood Pressure Source Monitor Blood Pressure Position Sitting Blood Pressure Location Left Arm Oxygen Delivery Method Room Air Weight Weight: 62.596 kg Body Mass Index (BMI) 24.4 Physical Exam Const alert, oriented x3 and no apparent distress General Appearance: cooperative HEENT normocephalic Eyes General Eye: normal appearance of both eyes Neck General: normal visual inspection Lymph Lymphatic: no lymphadenopathy noted and no lymphedema noted Resp normal respiratory effort Cardio regular rate and regular rhythm Extremity normal capillary refill, no calf tenderness and no pedal edema Extremity Narrative: Vascular: DP and PT pulses palpable bilateral. CFT is less than 4 seconds to the digits bilateral. Normal temperature gradient bilateral. Hair growth is diminished to digits bilateral. Neurologic: Epicritic sensation intact with no focal deficits noted. Musculoskeletal: Muscle strength 5 of 5 age-appropriate. Decreased range of motion of the ankle joint in dorsiflexion with the knee extended without pain or crepitus. Does achieve 5 degrees in dorsiflexion though. Full range of motion with knee flexed. There is some mild tenderness about her puncture wound plantar left foot. Dermatologic: There are some varicosities noted to the lower leg and about the ankle. Skin is noted to be thin/atrophic. There is a healing ulceration secondary to puncture wound to the plantar left foot. No signs of infection. Remainder of skin is unremarkable. Skin no rashes or lesions noted, skin turgor normal and no jaundice Neuro moves all extremities Debridement Note Debridement Note No debridement was completed: (more content not included)... Normal [facility] Hemoglobin A1con 04-08-2024 HbA1c (Bld) [Mass fraction] 5.6 % Normal 3.8-5.6 [facility] Comment on above: Order Comment: Order Date: 04/08/24 Order Info: [id number] - A1C Result Comment: Norm al < 5.7 % Prediabetic 5.7 - 6.4 % Diabetic >or= 6.5 % Please note range changes. Performed By: #### L 501.9900 #### [facility] [address] [place], [place], [address] Vitamin B12on 04-08-2024 Cobalamin (Vitamin B12) [Mass/Vol] 621 pg/mL Normal 211-911 [facility] Comment on above: Order Comment: Order Date: 03/31/24 Order Info: [id number] - CBCD Performed By: #### L 506.1000, L500.4050, L100.0100, L500.4100 #### [facility] [address] [place], [address] CBC W/Diff, Automatedon 03-13 Absolute Lymph 1.09 X10 3/uL Normal 0.83-4.51 [facility] Comment on above: Order Comment: Order Date: 03/31/24 Order Info: [id number] - CBCD Performed By: #### L 506.1000, L500.4050, L100.0100, L500.4100 #### [facility] [address] [place], [address] Absolute Neut 3.4 X10 3/uL Normal 2.0-7.7 [facility] Comment on above: Order Comment: Order Date: 03/31/24 Order Info: [id number] - CBCD Performed By: #### L 506.1000, L500.4050, L100.0100, L500.4100 #### [facility] [address] [place], [address] Basophils/100 WBC (Bld) 0.5 % Normal 0-1 [facility] Comment on above: Order Comment: Order Date: 03/31/24 Order Info: [id number] - CBCD Performed By: #### L 506.1000, L500.4050, L100.0100, L500.4100 #### [facility] [address] [place], [address] Eosinophils/100 WBC (Bld) 8.8 % High 0-5 [facility] Comment on above: Order Comment: Order Date: 03/31/24 Order Info: [id number] - CBCD Performed By: #### L 506.1000, L500.4050, L100.0100, L500.4100 #### [facility] [address] [place], [address] Erythrocyte distribution width (RBC) [Ratio] 14.0 % Normal 11.6-14.6 [facility] Comment on above: Order Comment: Order Date: 03/31/24 Order Info: [id number] - CBCD Performed By: #### L 506.1000, L500.4050, L100.0100, L500.4100 #### [facility] [address] [place], [address] Hematocrit (Bld) [Volume fraction] 38.9 % Normal 37-47 [facility] Comment on above: Order Comment: Order Date: 03/31/24 Order Info: [id number] - CBCD Performed By: #### L 506.1000, L500.4050, L100.0100, L500.4100 #### [facility] [address] [place], [address] Hemoglobin (Bld) [Mass/Vol] 12.4 g/dL Normal 12.0-15.0 [facility] Comment on above: Order Comment: Order Date: 03/31/24 Order Info: [id number] - CBCD Performed By: #### L 506.1000, L500.4050, L100.0100, L500.4100 #### [facility] [address] [place], [address] IG% 0.200 Normal 0.0-0.9 [facility] Comment on above: Order Comment: Order Date: 03/31/24 Order Info: 018- - CBCD Result Comment: IG% - Immature Granulocytes (promyelocytes, myelocytes and metamyelocytes) > 1% indicates that a LEFT SHIFT is Present. Performed By: #### L 506.1000, L500.4050, L100.0100, L500.4100 #### [facility] [address] [place], [address] Lymphocytes/100 WBC (Bld) 19.7 % Normal 19-41 [facility] Comment on above: Order Comment: Order Date: 03/31/24 Order Info: 0184- - CBCD Performed By: #### L 506.1000, L500.4050, L100.0100, L500.4100 #### [facility] [address] [place], [address] MCH (RBC) [Entitic mass] 30.0 pg Normal 27.0-32.0 [facility] Comment on above: Order Comment: Order Date: 03/31/24 Order Info: 0184- - CBCD Performed By: #### L 506.1000, L500.4050, L100.0100, L500.4100 #### [facility] [address] [place], [address] MCHC (RBC) [Mass/Vol] 31.9 g/dL Low 32-36 [facility] Comment on above: Order Comment: Order Date: 03/31/24 Order Info: [id number] - CBCD Performed By: #### L 506.1000, L500.4050, L100.0100, L500.4100 #### [facility] [address] [place], [address] MCV (RBC) [Entitic vol] 94.0 fL Normal 81-99 [facility] Comment on above: Order Comment: Order Date: 03/31/24 Order Info: [id number] - CBCD Performed By: #### L 506.1000, L500.4050, L100.0100, L500.4100 #### [facility] [address] [place], [address] Monocytes/100 WBC (Bld) 8.7 % Normal 0-10 [facility] Comment on above: Order Comment: Order Date: 03/31/24 Order Info: 0184- - CBCD Performed By: #### L 506.1000, L500.4050, L100.0100, L500.4100 #### [facility] [address] [place], [address] Neutrophils/100 WBC (Bld) 62.1 % Normal 47-70 [facility] Comment on above: Order Comment: Order Date: 03/31/24 Order Info: [id number] - CBCD Performed By: #### L 506.1000, L500.4050, L100.0100, L500.4100 #### [facility] [address] [place], [address] Nucleated RBC (Bld) [#/Vol] 0 10*3/uL Normal 0-5 [facility] Comment on above: Order Comment: Order Date: 03/31/24 Order Info: 0184-1 - CBCD Performed By: #### L 506.1000, L500.4050, L100.0100, L500.4100 #### [facility] [address] [place], [address] Platelet mean volume (Bld) [Entitic vol] 10.3 fL Normal 6.2-12.0 [facility] Comment on above: Order Comment: Order Date: 03/31/24 Order Info: 0184-1 - CBCD Performed By: #### L 506.1000, L500.4050, L100.0100, L500.4100 #### [facility] [address] [place], [address] Platelets (Bld) [#/Vol] 245 10*3/uL Normal 150-450 [facility] Comment on above: Order Comment: Order Date: 03/31/24 Order Info: 0184- - CBCD Performed By: #### L 506.1000, L500.4050, L100.0100, L500.4100 #### [facility] [address] [place], [address] RBC (Bld) [#/Vol] 4.14 10*6/uL Low 4.2-5.4 [facility] Comment on above: Order Comment: Order Date: 03/31/24 Order Info: [id number] - CBCD Performed By: #### L 506.1000, L500.4050, L100.0100, L500.4100 #### [facility] [address] [place], [address] RDW SD 48.0 fl High 35.1-43.9 [facility] Comment on above: Order Comment: Order Date: 03/31/24 Order Info: [id number] - CBCD Performed By: #### L 506.1000, L500.4050, L100.0100, L500.4100 #### [facility] [address] [place], [address] WBC (Bld) [#/Vol] 5.5 10*3/uL Normal 4.4-11.0 [facility] Comment on above: Order Comment: Order Date: 03/31/24 Order Info: [id number] - CBCD Performed By: #### L 506.1000, L500.4050, L100.0100, L500.4100 #### [facility] [address] [place], [address] Comprehensive Metabolic Prof ilon 04-01-2024 Albumin [Mass/Vol] 3.4 g/dL Normal 3.2-5.0 [facility] Comment on above: Order Comment: Order Date: 03/31/24 Order Info: [id number] - CMP Order Info: [id number] - LIPID Performed By: #### L 506.1000, L500.4050, L100.0100, L500.4100 #### [facility] [address] [place], [address] Albumin/Globulin [Mass ratio] 0.9 {ratio} Normal 0.9-2.4 [facility] Comment on above: Order Comment: Order Date: 03/31/24 Order Info: 0786-1 - CMP Order Info: [id number] - LIPID Performed By: #### L 506.1000, L500.4050, L100.0100, L500.4100 #### [facility] [address] [place], [address] ALK P 102 U/L Normal 45-117 [facility] Comment on above: Order Comment: Order Date: 03/31/24 Order Info: [id number] - CMP Order Info: [id number] - LIPID Performed By: #### L 506.1000, L500.4050, L100.0100, L500.4100 #### [facility] [address] [place], [address] ALT [Catalytic activity/Vol] 20 U/L Normal 13-56 [facility] Comment on above: Order Comment: Order Date: 03/31/24 Order Info: [id number] - CMP Order Info: [id number] - LIPID Performed By: #### L 506.1000, L500.4050, L100.0100, L500.4100 #### [facility] [address] [place], [address] AST [Catalytic activity/Vol] 11 U/L Low 15-37 [facility] Comment on above: Order Comment: Order Date: 03/31/24 Order Info: [id number] - CMP Order Info: [id number] - LIPID Performed By: #### L 506.1000, L500.4050, L100.0100, L500.4100 #### [facility] [address] [place], [address] Bilirubin [Mass/Vol] 0.40 mg/dL Normal 0.20-1.00 [facility] Comment on above: Order Comment: Order Date: 03/31/24 Order Info: [id number] - CMP Order Info: [id number] - LIPID Result Comment: For patients on eltrombopag therapy, use of Dimension [place] TBIL is not recommended. Performed By: #### L 506.1000, L500.4050, L100.0100, L500.4100 #### [facility] [address] [place], [address] BUN/CRE 18.8 RATIO Normal 10-20 [facility] Comment on above: Order Comment: Order Date: 03/31/24 Order Info: 0786 - CMP Order Info: [id number] - LIPID Performed By: #### L 506.1000, L500.4050, L100.0100, L500.4100 #### [facility] [address] [place], [address] CA,Total 9.5 mg/dL Normal 8.5-10.1 [facility] Comment on above: Order Comment: Order Date: 03/31/24 Order Info: 0786 - CMP Order Info: [id number] - LIPID Performed By: #### L 506.1000, L500.4050, L100.0100, L500.4100 #### [facility] [address] [place], [address] Chloride [Moles/Vol] 105 mmol/L Normal 98-107 [facility] Comment on above: Order Comment: Order Date: 03/31/24 Order Info: 07- - CMP Order Info: [id number] - LIPID Performed By: #### L 506.1000, L500.4050, L100.0100, L500.4100 #### [facility] [address] [place], [address] CO2 [Moles/Vol] 28.0 mmol/L Normal 21.0-32.0 [facility] Comment on above: Order Comment: Order Date: 03/31/24 Order Info: [id number] - CMP Order Info: [id number] - LIPID Performed By: #### L 506.1000, L500.4050, L100.0100, L500.4100 #### [facility] [address] [place], [address] Creatinine [Mass/Vol] 0.75 mg/dL Normal 0.55-1.02 [facility] Comment on above: Order Comment: Order Date: 03/31/24 Order Info: [id number] - CMP Order Info: [id number] - LIPID Result Comment: The validity of the calculated GFR GFRAA in patients over 70 years has not been determined. Clinical correlation is essential. Performed By: #### L 506.1000, L500.4050, L100.0100, L500.4100 #### [facility] [address] [place], [address] EST GFR - AA 98 mL/min Normal >60 [facility] Comment on above: Order Comment: Order Date: 03/31/24 Order Info: 07 - CMP Order Info: [id number] - LIPID Result Comment: Afri can Cameroonian GFR Calc Performed By: #### L 506.1000, L500.4050, L100.0100, L500.4100 #### [facility] [address] [place], [address] GAP 6 Normal 5-15 [facility] Comment on above: Order Comment: Order Date: 03/31/24 Order Info: [id number] - CMP Order Info: [id number] - LIPID Performed By: #### L 506.1000, L500.4050, L100.0100, L500.4100 #### [facility] [address] [place], [address] GFR/1.73 sq M.predicted among non-blacks MDRD (S/P/Bld) [Vol rate/Area] 81 mL/min/{1.73_m2} Normal >60 [facility] Comment on above: Order Comment: Order Date: 03/31/24 Order Info: [id number] - CMP Order Info: [id number] - LIPID Result Comment: Non- GFR Calc Performed By: #### L 506.1000, L500.4050, L100.0100, L500.4100 #### [facility] [address] [place], [address] Globulin (S) [Mass/Vol] 3.8 g/dL Normal 2.2-4.2 [facility] Comment on above: Order Comment: Order Date: 03/31/24 Order Info: [id number] - CMP Order Info: [id number] - LIPID Performed By: #### L 506.1000, L500.4050, L100.0100, L500.4100 #### [facility] [address] [place], [address] Glucose [Mass/Vol] 110 mg/dL High 74-106 [facility] Comment on above: Order Comment: Order Date: 03/31/24 Order Info: [id number] - CMP Order Info: [id number] - LIPID Result Comment: Fast ing Glucose result from 100 to 125 mg/dL suggests IMPAIRED HOMEOSTASIS per A.D.A. criteria. Performed By: #### L 506.1000, L500.4050, L100.0100, L500.4100 #### [facility] [address] [place], [address] Potassium [Moles/Vol] 3.9 mmol/L Normal 3.5-5.1 [facility] Comment on above: Order Comment: Order Date: 03/31/24 Order Info: [id number] - CMP Order Info: [id number] - LIPID Performed By: #### L 506.1000, L500.4050, L100.0100, L500.4100 #### [facility] [address] [place], [address] Sodium [Moles/Vol] 139 mmol/L Normal 136-145 [facility] Comment on above: Order Comment: Order Date: 03/31/24 Order Info: 0786 - CMP Order Info: [id number] - LIPID Performed By: #### L 506.1000, L500.4050, L100.0100, L500.4100 #### [facility] [address] [place], [address] T PROT 7.2 g/dL Normal 6.4-8.2 [facility] Comment on above: Order Comment: Order Date: 03/31/24 Order Info: 0786- - CMP Order Info: [id number] - LIPID Performed By: #### L 506.1000, L500.4050, L100.0100, L500.4100 #### [facility] [address] [place], [address] Urea nitrogen [Mass/Vol] 14 mg/dL Normal 7-18 [facility] Comment on above: Order Comment: Order Date: 03/31/24 Order Info: 0786- - CMP Order Info: [id number] - LIPID Performed By: #### L 506.1000, L500.4050, L100.0100, L500.4100 #### [facility] [address] [place], [address] Lipid Profileon 04-01-2024 Cholesterol [Mass/Vol] 167 mg/dL Normal 200 [facility] Comment on above: Order Comment: Order Date: 03/31/24 Order Info: 0786 - CMP Order Info: [id number] - LIPID Result Comment: <200 mg/dL Desirable 200-240 mg/dL Borderline >240 mg/dL High Risk Performed By: #### L 506.1000, L500.4050, L100.0100, L500.4100 #### [facility] [address] [place], [address] Cholesterol in HDL [Mass/Vol] 72 mg/dL Normal [facility] Comment on above: Order Comment: Order Date: 03/31/24 Order Info: 07 - CMP Order Info: [id number] - LIPID Result Comment: The drugs N-Acetylcysteine and Metamizole may falsely depress this assay. Reference Range HDL <40 mg/dL Low HDL Cholesterol HDL >or= 60 mg/dL High HDL Cholesterol Performed By: #### L 506.1000, L500.4050, L100.0100, L500.4100 #### [facility] [address] [place], [address] Cholesterol in LDL [Mass/Vol] 74 mg/dL Normal 0-130 [facility] Comment on above: Order Comment: Order Date: 03/31/24 Order Info: 0786- - CMP Order Info: [id number] - LIPID Performed By: #### L 506.1000, L500.4050, L100.0100, L500.4100 #### [facility] [address] [place], [address] Cholesterol in VLDL [Mass/Vol] 21 mg/dL Normal 5-40 [facility] Comment on above: Order Comment: Order Date: 03/31/24 Order Info: 0786- - CMP Order Info: [id number] - LIPID Performed By: #### L 506.1000, L500.4050, L100.0100, L500.4100 #### [facility] [address] [place], [address] Triglyceride [Mass/Vol] 106 mg/dL Normal [facility] Comment on above: Order Comment: Order Date: 03/31/24 Order Info: [id number] - CMP Order Info: [id number] - LIPID Result Comment: The drugs N-Acetylcysteine and Metamizole may falsely depress this assay. Serum Triglycerides Reference Interval Normal <150 mg/dL Borderline high 150 - 199 mg/dL High 200 - 499 mg/dL Very High > or = 500 mg/dL Performed By: #### L 506.1000, L500.4050, L100.0100, L500.4100 #### [facility] [address] [place], [address] Vitamin D,25 Hydroxyon 04-01 Vitamin D 25-OH 77.8 ng/mL Normal [facility] Comment on above: Order Comment: Order Date: 03/31/24 Order Info: [id number] - VITD25 Result Comment: Emily min D 25(OH) Status Range Deficiency <20 ng/mL (50nmol/L) Insufficiency 20 - 30 ng/mL (50 - 75 nmol/L) Sufficiency 30 - 100 ng/mL (75 - 250 nmol/L) Toxicity >100 ng/mL (>250 nmol/L) Performed By: #### L 506.1000, L500.4050, L100.0100, L500.4100 #### [facility] [address] [place], [address] SCRN MAMM (CAD)W/ELSIE BILATo n 01-13-2024 SCRN MAMM (CAD)W/ELSIE BILAT [facility] [address] [place], [place] [address] SCRN MAMM (CAD)W/ELSIE BILAT MR#: [id number] Acct: [id number] Name: CHINMAY GRIMALDO Rep #: [id number] : 1950 F 73 From: Nixon gonsalves MD PCP: Dr. Trang Carr MD Status: REG CLI Study: SCRN MAMM (CAD)W/ELSIE BILAT Date of Exam: 11/02 Exam# [id number] Ordering Dr: [place] [id number] MAMMOGRAPHY - BILATERAL SCREENING REASON FOR EXAM: Female, 73 years old. Routine annual screening examination. PERTINENT HISTORY: Non-contributory. TECHNIQUE: Digital bilateral breast elsie (3D mammographic acquisition) in the CC and MLO projections. 2-D mediolateral oblique (MLO) and craniocaudad (CC) views of both breasts were obtained. CAD: Full Field Digital Mammography with Computer Added Detection was performed. COMPARISON: Comparison is made with prior outside examination of December 12, 2022. FINDINGS: Breast Composition: The breasts are heterogeneously dense, which may obscure small masses. There are no dominant masses or suspicious calcifications. No other significant abnormalities are identified. There has been no significant change since the prior study. BI/SCRN MAMM (CAD)W/ELSIE BILAT IMPRESSION: Stable bilateral screening mammogram. Yearly follow-up mammogram recommended. (A) ASSESSMENT CATEGORY: BIRADS Category 1: Negative. A letter regarding these results will be sent to the patient by the facility within 30 days. Approximately 10% of breast cancers are not detected by mammography. A normal mammogram should not delay biopsy of a clinically suspicious abnormality. [id number] Electronically Signed: Nixon Ibrara MD at 14:47 EDT , CC: ARRON Ny; Dr. Trang Carr MD [employer]er: Signed Normal [facility] Basophil percentageOrdered B y: Sondra Dollnger on 09-26-2023 Bilirubin [Mass/Vol] 0.60 mg/dL 0.20-1.00 [facility] Comment on above: For patients on eltr ombopag therapy, use of Dimension [place] TBIL is not recommended. Chloride [Moles/Vol] 107 mmol/L 98-107 [facility] Cholesterol [Mass/Vol] 185 mg/dL <200 [facility] Comment on above: <200 mg/dL Desirable 200-240 mg/dL Borderline >240 mg/dL High Risk Glucose [Mass/Vol] 91 mg/dL 74-106 [facility] Potassium [Moles/Vol] 4.0 mmol/L 3.5-5.1 [facility] Protein [Mass/Vol] 7.3 g/dL 6.4-8.2 [facility] Sodium [Moles/Vol] 141 mmol/L 136-145 [facility] Triglyceride [Mass/Vol] 103 mg/dL <199 [facility] Comment on above: The drugs N-Acetylcy steine and Metamizole may falsely depress this assay.Serum Triglycerides Reference Interval Normal <150 mg/dL Borderline high 150 - 199 mg/dL High 200 - 499 mg/dL Very High > or = 500 mg/dL Laboratory - Chemistry and C hemistry - challengeOrdered By: Sondra Vu on 09-26-2023 Albumin/Globulin [Mass ratio] 1.1 {ratio} 0.9-2.4 [facility] ALP [Catalytic activity/Vol] 99 U/L 45-117 [facility] ALT [Catalytic activity/Vol] 21 U/L 13-56 [facility] Cholesterol in HDL [Mass/Vol] 86 mg/dL >40 [facility] Comment on above: The drugs N-Acetylcy steine and Metamizole may falsely depress this assay. Reference Range HDL <40 mg/dL Low HDL Cholesterol HDL >or= 60 mg/dL High HDL Cholesterol Cholesterol in LDL [Mass/Vol] 78 mg/dL 0-130 [facility] CO2 [Moles/Vol] 28.0 mmol/L 21.0-32.0 [facility] Cobalamin (Vitamin B12) [Mass/Vol] 977 pg/mL 211-911 [facility] Ferritin [Mass/Vol] 64 ng/mL 8-252 [facility] Globulin (S) [Mass/Vol] 3.5 g/dL 2.2-4.2 [facility] Urea nitrogen/Creatinine [Mass ratio] 13.7 mg/mg 10-20 [facility] No Panel InformationOrdered By: Sondra Vu on 09-26-2023 Estimated GFR (MDRD) Amer 90 mL/min >60 [facility] Comment on above: GFR Calc Estimated GFR (MDRD) Non-Af Amer 74 mL/min >60 [facility] Comment on above: Non- GFR Calc Vitamin D 25-Hydroxy 46.2 ng/mL [facility] Comment on above: Vitamin D 25(OH) Sta tus Range Deficiency <20 ng/mL (50nmol/L) Insufficiency 20 - 30 ng/mL (50 - 75 nmol/L) Sufficiency 30 - 100 ng/mL (75 - 250 nmol/L) Toxicity >100 ng/mL (>250 nmol/L) VLDL Cholesterol 21 mg/dL 5-40 [facility] Serum or plasma calcium charley urement (mass/volume)Ordered By: Sondra Vu on 09-26-2023 Calcium [Mass/Vol] 9.7 mg/dL 8.5-10.1 [facility] Serum or plasma creatinine m easurement (mass/volume)Ordered By: Sondra Vu on 09-26-2023 Creatinine [Mass/Vol] 0.80 mg/dL 0.55-1.02 [facility] Comment on above: The validity of the calculated GFR & GFRAA in patients over 70 years has not been determined. Clinical correlation is essential. Serum or plasma urea nitroge n measurement (mass/volume)Ordered By: Sondra Vu on 09-26-2023 Urea nitrogen [Mass/Vol] 11 mg/dL 7-18 [facility] Thin prep Papanicolaou smear with manual screeningOrdered By: Sondra Vu on 09-26-2023 Thin prep Papanicolaou smear with manual screening 3.8 g/dL 3.2-5.0 [facility] Thin prep Papanicolaou smear with manual screening 21 U/L 15-37 [facility] Thin prep Papanicolaou smear with manual screening 6 5-15 [facility] No Panel InformationOrdered By: Dr. Espinoza on 01-25-2023 Endomysial IgA Antibody Negative Negative [facility] Serum IgA measurement (units /volume)Ordered By: Dr. Espinoza on 01-25-2023 IgA Qn (S) 157 mg/dL 64-422 [facility] Comment on above: Performed at: [address] [id number] Director: Sergio Tovar PhD, Phone: [phone] Serum or plasma C reactive p rotein measurement (mass/volume)Ordered By: Dr. Espinoza on 01-25-2023 CRP [Mass/Vol] mg/L 0.0-3.0 [facility] Comment on above: C-Reactive Protein ( CRP) provides useful information for thediagnosis, therapy and monitoring of inflammatory processesand associated diseases. For the evaluation of Relative Riskfor Cardiovascular Disease, a High Sensitivity CRP (HSCRP)should be ordered. Serum tissue transglutaminas e IgA antibody assay (units/volume)Ordered By: Dr. Espinoza on 01-25-2023 tTG IgA Qn (S) <2 U/mL 0-3 [facility] Comment on above: Negative 0 - 3 Weak Positive 4 - 10 Positive >10 Tissue Transglutaminase (tTG) has been identified as the endomysial antigen. Studies have demonstr- ated that endomysial IgA antibodies have over 99% specificity for gluten sensitive enteropathy. DIGITAL MAMM SCREENING W/ TO El 12-12-2022 DIGITAL MAMM SCREENING W/ ELSIE Patient Name: CHINMAY GRIMALDO STUDY: Digital mammography screening with elsie; 12/12/2022 2:10 pm ACCESSION NUMBER(S): [id number] ORDERING CLINICIAN: SAMMIE HILARIO INDICATION: Screening. COMPARISON: Comparison is made to prior digital mammograms dated 12/04/2021 FINDINGS: CC and MLO 2D digital mammograms and digital breast tomosynthesis images were obtained of the bilateral breasts. 3-D volume images were reconstructed in 4 views at an independent workstation as 1 mm slices through the breasts in both the CC and MLO projections. The breast tissue is heterogeneously dense, which may obscure small masses. No discrete mass or focal asymmetry is identified. No suspicious microcalcifications or foci of architectural distortion are seen. There has been no significant change. This study was interpreted with CAD. IMPRESSION: No mammographic evidence of malignancy. BI-RADS CATEGORY: Category: 1 - Negative. Recommendation: 1 Year Screening. Electronically signed by: JOSE PATTERSON MD Located Within [facility] US PELVIS TRANSABDOMINAL WIT H TRANSVAGINALon 11-23-2022 US PELVIS TRANSABDOMINAL WITH TRANSVAGINAL Patient Name: CHINMAY GRIMALDO STUDY: US PELVIS TRANSABDOMINAL WITH TRANSVAGINAL; 11/23/2022 11:29 am INDICATION: RIGHT LOWER QUADRANT PAIN. COMPARISON: None. ACCESSION NUMBER(S): [id number] ORDERING CLINICIAN: ERNESTINA AYOUB TECHNIQUE: Multiple multiplanar static hayden scale, color and spectral waveform sonographic images of the pelvis were obtained. Transabdominal and transvaginal ultrasound was performed. FINDINGS: UTERUS: The uterus measures 5.1 x 2 x 3.8 cm. No uterine masses. Calcifications in the cervix. ENDOMETRIUM: The endometrium measures 0.5 cm. No focal abnormality. RIGHT OVARY: Not visualized. LEFT OVARY: Not visualized. OTHER: No significant pelvic free fluid. IMPRESSION: No worrisome abnormality in the uterus. Ovaries obscured by overlying bowel gas. Electronically signed by: EVERTON VIEIRA MD Located Within [facility] BONE DENSITY, DEXA 1 OR MORE SITES: AXIAL SKELETONon 08-29-2022 BONE DENSITY, DEXA 1 OR MORE SITES: AXIAL SKELETON Patient Name: CHINMAY GRIMALDO STUDY: BONE DENSITY, DEXA 1 OR MORE SITES: AXIAL SKELET08/29/2022 9:38 am INDICATION: Other specified disorders of bone density and structure, unspecified site LAST DEXA 06/06/2020The patient is a 71 year old female for a screening bone Densitometry (DEXA). COMPARISON: 06/06/2020. ACCESSION NUMBER(S): [id number] ORDERING CLINICIAN: SAMMIE HILARIO TECHNIQUE: Bone Densitometry (DEXA) of the lumbar spine and left hip performed. FINDINGS: Name: CHINMAY GRIMALDO A Date:1950 Height:160 Gender:F Exam Date:08/29/2022 Weight:60.7 Indications:Other specified disorders of bone density and structure, unspecified site LAST DEXA 06/06/2020 Fractures:None Treatments:Prolia LEFT FEMUR -TOTAL Bone Mineral Density: 1.040 g/cm2 T-Score 0.8 Z-Score 2.4 LEFT FEMUR -NECK Bone Mineral Density: 0.801 g/cm2 T-Score -0.4 Z-Score 1.5 SPINE L1-L4 Bone Mineral Density: 0.986 g/cm2 T-Score -0.6 Z-Score 1.6 World Health Organization (WHO) criteria for post-menopausal, Women: Normal: T-score at or above -1 SD Osteopenia: T-score between -1 and -2.5 SD Osteoporosis: T-score at or below -2.5 SD 10-Year Fracture Risk: FRAX NA IMPRESSION: According to World Health Organization criteria, classification is normal. Followup recommended in 2 years or sooner as clinically warranted. Electronically signed by: JOSE PATTERSON MD Located Within [facility] FOOT COMPLETE, MIN 3 VIEWSon 01-24-2022 FOOT COMPLETE, MIN 3 VIEWS Patient Name: CHINMAY GRIMALDO STUDY: FOOT; COMPLETE, MIN 3 VIEWS INDICATION: M79.671. COMPARISON: None ACCESSION NUMBER(S): [id number] ORDERING CLINICIAN: DIPAK SETH FINDINGS: Nondisplaced fracture of the base of the right 5th metatarsal. No dislocation. No other osseous lesion. IMPRESSION: Nondisplaced right 5th metatarsal base fracture. Electronically signed by: ANDREEA ALEJANDRA MD Located Within [facility] GROUP A STREP,PCRon 01-25-20 22 GROUP A STREP,PCR Not detected Normal Not Detected [facility] Comment on above: Result Comment: This test was performed utilizing an FDA-cleared rapid nucleic acid amplification by PCR to qualitatively detect Group A Streptococci from throat swab specimens without the need for culture confirmation of negative results. Performed By: #### G APC1 #### [place] [address] Lab Specimen Source Throat Normal [facility] Comment on above: Performed By: #### G APC1 #### [place] [address] Provider Note - ED v3on 01-10 Provider Note - ED v3 Provider Note: Chart Review HISTORY OF PRESENTING ILLNESS CHINMAY is a 71 year old Female and was seen by me at 24-Jan-2022 08:17. The historian is the patient. Triage Information: Most recent Vital Sign Value Date PAST MEDICAL HISTORY ALLERGIES/INTOLERANCES: Allergy Allergen: Boniva Type: Drug Reaction: Other HEALTH HISTORY: History of osteoporosis, GERD, and hyperlipidemia. Follows with Dr. Seth. Family history: no pertinent history. Social history: non-smoker. with children and grandkids. Retired. OUTPATIENT MEDICATIONS: Home Medications Review Status for Reconciliation: Complete Med Status: Patient Currently Takes Medications Drug Name: PriLOSEC Instructions: null Drug Name: amoxicillin 500 mg oral tablet Instructions: 1 tab(s) orally 2 times a day x 10 days Drug Name: statin (unknown) Instructions: null SIGNIFICANT EVENTS: No known significant events; history of appendectomy ~20 yrs ago. Reports received 2 doses + 2 boosters (2nd booster in ~01/2022) of the COVID-19 vaccine. Received the [id number] flu vaccine. Received the pneumonia vaccine. CRITICAL CARE VITAL SIGNS: T PRBP SpO2O2(LPM) %FiO2 Method 24-Jan-2022 08:08:[id number]/61 98 MDM MDM/ED COURSE: This note was generated with voice recognition software and may contain errors including spelling, grammar, syntax, and misrecognization of what was dictated CHIEF COMPLAINT sore throat HISTORY OF PRESENT ILLNESS Patient presents today with complaints of fatigue, a sore throat, intermittent, mild headaches, body aches, and fever/chills (Tmax 100.4f) - sxs started on Saturday and seem to be getting worse. She also had nausea at onset of symptoms, but this has resolved. She denies any sinus tenderness/nasal congestion, cough, ear pain, abdominal pain, chest pain, wheezing/shortness of breath, rashes, urinary symptoms, vomiting, and diarrhea. Denies any lightheadedness or dizziness; no changes in mental status. No swelling in legs. Appetite is poor but is able to drink fluids without difficulty; reports lost her sense of taste/smell ~5 years ago and it has never returned since then (saw ENT and they were unsure of cause). Has been taking ibuprofen with some temporary relief; also took 500 mg amoxicillin x1 last night; has not tried any other ucdj-dul-tuvvesc medications or home remedies for symptom management. No known ill contacts. Has received the COVID-19 vaccine x 2 + 2 boosters, the 9421-6574 flu vaccine, and a pneumonia vaccine. Is not a smoker. REVIEW OF SYSTEMS 10 systems reviewed negative with exception of history of present illness listed above PHYSICAL EXAMINATION General: Mildly ill-appearing, well nourished older female; alert and oriented; in no acute distress. Sitting comfortably on exam table. Non-dyspneic. Eyes: Pupils equal, round and reactive to light. No conjunctival erythema; no scleral icterus. HENT: No frontal or maxillary sinus tenderness; no audible nasal congestion. Airway patent, TMs normal, and ear canals clear/unremarkable bilaterally. Nasal mucosa mildly injected but not edematous; + nasal polyp noted to L nostril. Oral mucosa moist. Posterior pharynx mildly injected but without vesicles or oropharyngeal exudate aside from PND. Uvula is midline. Managing oral secretions without difficulty. Neck: Supple. Tender, mobile anterior cervical lymphadenopathy bilat. Trachea is midline. Respiratory: Respirations easy and unlabored, Breath sounds equal. Lungs are clear to auscultation; no wheezes, rhonchi, or rales; has good air movement throughout. No cough noted during visit. Non-dyspneic with ambulation; able to maintain SpO2. Cardiovascular: Normal rate, Regular rhythm. Normal S1S2. No m/r/g. No peripheral edema. Gastrointestinal: Soft, non-tender, non-distended; no palpable masses or organomegaly. Bowel sounds normoactive. Musculoskeletal: Grossly normal; appropriate for age. Integumentary: Weidman, warm, dry, and intact. No rashes or skin discoloration appreciated. Good skin turgor. Neurologic: Alert and oriented, no gross deficits. Cognition and Speech: Oriented, Speech clear and coherent. Psychiatric: Cooperative, Appropriate mood & affect. MEDICAL DECISION MAKING Course: Worsening; stable. Impression/Plan: No red flags on exam today. I have reviewed the COVID-19 algorithm, and counseled pt on current recommendations. Symptoms consistent with viral pharyngitis with associated symptoms, but reviewed other potential etiologies. Per pt's request, strep test sent to lab - will contact with results. Pt declined testing for influenza/COVID-19 but urged precautionary measures and close monitoring - reports she has done two COVID home tests and both have been negative so far. Patient states is leaving [facility] - requesting watch and wait antibiotic. Rx for Amoxicillin sent to p (more content not included)... Normal [facility] GROUP A STREP,PCRon 10-30-19 GROUP A STREP,PCR Not detected Normal Not Detected [facility] Comment on above: Result Comment: This test and its performance have been Validated by [facility] Laboratory using analyte specific reagents (ASR). It has not been cleared or approved by the U.S. Food and Drug Administration. The FDA has determined that such clearance or approval is not necessary. Performed By: #### G APC1 #### [facility] [address] [place] [address] GROUP A STREP,PCRon 10-29-19 Lab Specimen Source Throat Normal [facility] Comment on above: Performed By: #### G APC1 #### [facility] [address] [place] [id number] ASOon 09-01-2021 ASO 196 IU/mL Normal 0 - 200 [facility] Comment on above: Performed By: #### A SO #### [facility] [address] [place] [id number] CBC AND DIFFERENTIALon 08-31 Basophils (Bld) [#/Vol] 0.00 10*3/uL Normal 0.00 - 0.10 [facility] Comment on above: Performed By: #### C BCDF #### [address] [address] Basophils/100 WBC (Bld) 0.7 % Normal 0.0 - 2.0 [facility] Comment on above: Performed By: #### C BCDF #### [address] [address] Eosinophils (Bld) [#/Vol] 0.10 10*3/uL Normal 0.00 - 0.70 [facility] Comment on above: Performed By: #### C BCDF #### [address] [address] Eosinophils/100 WBC (Bld) 1.3 % Normal 0.0 - 6.0 [facility] Comment on above: Performed By: #### C BCDF #### [address] [address] Erythrocyte distribution width (RBC) [Ratio] 14.2 % Normal 11.5 - 14.5 [facility] Comment on above: Performed By: #### C BCDF #### [address] [address] Hematocrit (Bld) [Volume fraction] 44.1 % Normal 36.0 - 46.0 [facility] Comment on above: Performed By: #### C BCDF #### [address] [address] Hemoglobin (Bld) [Mass/Vol] 14.6 g/dL Normal 12.0 - 16.0 [facility] Comment on above: Performed By: #### C BCDF #### [address] [address] Lymphocytes (Bld) [#/Vol] 0.80 10*3/uL Low 1.20 - 4.80 [facility] Comment on above: Performed By: #### C BCDF #### [address] [address] Lymphocytes/100 WBC (Bld) 16.2 % Normal 13.0 - 44.0 [facility] Comment on above: Performed By: #### C BCDF #### [address] [address] MCHC (RBC) [Mass/Vol] 33.0 g/dL Normal 32.0 - 36.0 [facility] Comment on above: Performed By: #### C BCDF #### [address] [address] MCV (RBC) [Entitic vol] 94 fL Normal 80 - 100 [facility] Comment on above: Performed By: #### C BCDF #### [address] [address] Monocytes (Bld) [#/Vol] 0.30 10*3/uL Normal 0.10 - 1.00 [facility] Comment on above: Performed By: #### C BCDF #### [address] [address] Monocytes/100 WBC (Bld) 6.2 % Normal 2.0 - 10.0 [facility] Comment on above: Performed By: #### C BCDF #### [address] [address] Neutrophils (Bld) [#/Vol] 3.90 10*3/uL Normal 1.20 - 7.70 [facility] Comment on above: Result Comment: Perc ent differential counts (%) should be interpreted in the context of the absolute cell counts (cells/L). Performed By: #### C BCDF #### [address] [address] Neutrophils/100 WBC (Bld) 75.6 % Normal 40.0 - 80.0 [facility] Comment on above: Performed By: #### C BCDF #### [address] [address] NUCLEATED RBC 0.4 /100 WBC Normal [facility] Comment on above: Performed By: #### C BCDF #### [address] [address] Platelets (Bld) [#/Vol] 222 10*3/uL Normal 150 - 450 [facility] Comment on above: Performed By: #### C BCDF #### [address] [address] RBC 4.72 x10E12/L Normal 4.00 - 5.20 [facility] Comment on above: Performed By: #### C BCDF #### [address] [address] WBC (Bld) [#/Vol] 5.2 10*3/uL Normal 4.4 - 11.3 [facility] Comment on above: Performed By: #### C BCDF #### [address] [address] COMPREHENSIVE PANELon 01-20- 2022 Albumin [Mass/Vol] 4.4 g/dL Normal 3.4 - 5.0 [facility] Comment on above: Performed By: #### C MP #### [address] [address] ALP [Catalytic activity/Vol] 80 U/L Normal 33 - 136 [facility] Comment on above: Performed By: #### C MP #### [address] [address] ALT [Catalytic activity/Vol] 12 U/L Normal 7 - 45 [facility] Comment on above: Result Comment: Stephanie ents treated with Sulfasalazine may generate falsely decreased results for ALT. Performed By: #### C MP #### [address] [address] Anion gap [Moles/Vol] 11 mmol/L Normal 10 - 20 [facility] Comment on above: Performed By: #### C MP #### [address] [address] AST [Catalytic activity/Vol] 14 U/L Normal 9 - 39 [facility] Comment on above: Performed By: #### C MP #### [address] [address] Bilirubin [Mass/Vol] 0.6 mg/dL Normal 0.0 - 1.2 [facility] Comment on above: Performed By: #### C MP #### [address] [address] Calcium [Mass/Vol] 9.6 mg/dL Normal 8.6 - 10.3 [facility] Comment on above: Performed By: #### C MP #### [address] [address] Chloride [Moles/Vol] 101 mmol/L Normal 98 - 107 [facility] Comment on above: Performed By: #### C MP #### [address] [address] Creatinine [Mass/Vol] 0.75 mg/dL Normal 0.50 - 1.05 [facility] Comment on above: Performed By: #### C MP #### [address] [address] GFR/1.73 sq M.predicted among non-blacks MDRD (S/P/Bld) [Vol rate/Area] 85 mL/min/{1.73_m2} Normal >90 [facility] Comment on above: Result Comment: CALC ULATIONS OF ESTIMATED GFR ARE PERFORMED USING THE 2020 CKD-EPI STUDY REFIT EQUATION WITHOUT THE RACE VARIABLE FOR THE IDMS-TRACEABLE CREATININE METHODS. https://jasn.asnjournals.org/content/early//ASN.90405 83202 Performed By: #### C MP #### [address] [address] Glucose [Mass/Vol] 110 mg/dL High 74 - 99 [facility] Comment on above: Performed By: #### C MP #### [address] [address] HCO3 (Bld) [Moles/Vol] 31 mmol/L Normal 21 - 32 [facility] Comment on above: Performed By: #### C MP #### [address] [address] Potassium [Moles/Vol] 3.9 mmol/L Normal 3.5 - 5.3 [facility] Comment on above: Performed By: #### C MP #### [address] [address] Protein [Mass/Vol] 7.3 g/dL Normal 6.4 - 8.2 [facility] Comment on above: Performed By: #### C MP #### [address] [address] Sodium [Moles/Vol] 139 mmol/L Normal 136 - 145 [facility] Comment on above: Performed By: #### C MP #### [address] [address] Urea nitrogen [Mass/Vol] 12 mg/dL Normal 6 - 23 [facility] Comment on above: Performed By: #### C MP #### [place] [id number] [place] [address] Covid 19 Resultson 2 SARS-CoV-2 (COVID-19) RNA KINGS+probe Ql (Unsp spec) NEGATIVE COVID-19 Test Coronaviruses are common world-wide and are the cause of many common colds. SARS-COV2 is a new coronavirus that began circulating worldwide in 2019 so we are calling it COVID-19. It has been estimated that four out of five patients with COVID-19 will recover at home without the need for medical attention. Symptoms of COVID-19 may include cough, fever, shortness of breath, loss of taste or smell and other flu-like symptoms including chills, sore muscles, sore throat, and headache. Severe illness is more common in older people and people with other health problems such as high blood pressure, obesity, and immune system problems. If the test is positive, you have COVID-19. You will be contacted by the ordering physicians office and instructed to remain on home isolation, in accordance with CDC guidelines. You may also be contacted by the [facility] to see if any of your close contacts may have been exposed to the virus and need to quarantine. If the test is negative, you likely do not have COVID-19 at this time, but you still may have a different illness that can spread to other people (like Influenza, or the Flu) and could still be at risk for getting COVID-19. We recommend that you stay away from other people to limit the spread of illness until your symptoms are improving and you are fever-free for 24 hours without the use of fever lowering medications such as acetaminophen or ibuprofen. No test is 100% accurate so if you are still concerned you may have COVID-19, talk to your doctor about the need to continue to stay away from others. Medicines Unless your provider told you not to use the following: Acetaminophen (Tylenol and others) is generally safe. Anti-inflammatory medications, such as Ibuprofen (Advil or Motrin) or Naproxen (Aleve) can also be used. Xmxg-zsx-obulikx cough and cold medicines can be used according to the instructions on the package. Some btxo-gij-euwdjrx medicines also contain acetaminophen. Make sure you are not taking more than your recommended dose. For those not hospitalized, there is no specific treatment available for this illness. Antibiotics do not treat Coronaviruses. Follow-Up Follow up with your doctor by scheduling a virtual visit or consider follow-up at one of our urgent care fever clinics. If you are having difficulty breathing, or are very weak and having difficulty standing, this is a medical emergency. Call 911 or have someone take you to the nearest emergency room immediately. If possible, wear a facemask. Additional guidance from the CDC for patients who tested POSITIVE for COVID-19 How to isolate: Isolate yourself in a specific room at home and limit your contact with others. Use a separate bathroom from other members of the household, when possible. Leave home only to get essential medical care. Do not go to work, school or public areas. Avoid using public transportation, ride-sharing, or taxis. Restrict contact with pets and other animals. If you must care for your pet or be around animals while you are sick, wash your hands before and after your interaction and wear a facemask. Make sure that shared spaces in the home have good airflow, such as by an air conditioner or an opened window, weather permitting. Personal Hygiene Procedures: Wear a face mask when in the same room as other people or pets. If a face mask interferes with your breathing, others should wear a mask when sharing space with you. Frequent hand-washing: wash your hands with soap and water for at least 20 seconds. If soap and water are not available, use alcohol-based hand oxygen plant operator. Avoid touching your eyes, nose, and mouth with unwashed hands. Household Hygiene Procedures: Avoid sharing personal household items such as dishes, glassware, cups, eating utensils, towels or bedding with other people or pets in your home. After use, these items should be washed with soap and hot water. Disinfect all high-touch surfaces every day with antibacterial cleaning solutions such as Lysol wipes, bleach, cleansers, etc. High-touch surfaces include tabletops, doorknobs, bathroom fixtures, toilets, phones, keyboards, tablets and bedside tables. Immediately clean any surfaces that may have blood, poop or body fluids on them, using antibacterial cleaning solutions such as Lysol wipes, bleach, cleansers, etc. If clothing or bedding come into contact with blood, poop or body fluids, they should be washed immediately. Follow the directions on the laundry detergent and clothing labels but hot water is recommended when possible. Stopping home isolation precautions: If possible, consult your doctor before stopping home isolation precautions. According to the CDC, you can discontinue home isolation precautions when you have met both of these criteria: Your fever and respiratory symptoms have been gone for 24 lynda (more content not included)... Normal [facility] INFLUENZA A/B, COVID 2019 PC R,SYMPTOMATICon 08-29-2021 INFLUENZA A, PCR Not detected Normal Not Detected [facility] Comment on above: Result Comment: Resp iratory virus testing is performed routinely by PCR for Influenza A/B and RSV. If Influenza and RSV PCR are negative, testing for parainfluenza 1,2,3 viruses and adenovirus is routinely performed for oncology inpatients and intensive care unit patients at [facility] and is available on request on other patients by calling Laboratory Client Services at [phone]. Not Detected results do not preclude Influenza A/B or RSV infections since the adequacy of sample collection or low viral burden may impact the clinical sensitivity of this test method. Performed By: #### C OINP #### [facility] [address] [place] [address] INFLUENZA B, PCR Not detected Normal Not Detected [facility] Comment on above: Result Comment: Resp iratory virus testing is performed routinely by PCR for Influenza A/B and RSV. If Influenza and RSV PCR are negative, testing for parainfluenza 1,2,3 viruses and adenovirus is routinely performed for oncology inpatients and intensive care unit patients at [facility] and is available on request on other patients by calling Laboratory Client Services at [phone] Not Detected results do not preclude Influenza A/B or RSV infections since the adequacy of sample collection or low viral burden may impact the clinical sensitivity of this test method. . The TaqManTM SARS-CoV-2, Flu A, Flu B Multiplex Assay is a multiplex, real-time RT-PCR assay for the detection of RNA from the SARS-CoV-2, Influenza A, and Influenza B viruses. A negative result does not preclude the possibility of SARS-CoV-2, Influenza A, or Influenza B infections, and should not be used as the sole basis for patient management decision as a negative result may be caused by very low levels of infection, collection errors, or testing errors. . This test was developed and its performance characteristics were determined by the Microbiology Laboratory, Department of Pathology, [facility] [place], [place]. It has not been cleared or approved by the US Food and Drug Administration; however, FDA clearance or approval is not currently required for clinical use. This test should not be regarded as investigational or for research purposes. Performed By: #### C OINP #### [address] [place] [address] SARS-CoV-2 (COVID-19) RNA KINGS+probe Ql (Unsp spec) Not detected Normal Not Detected [facility] Comment on above: Result Comment: . This assay is designed to detect the N, ORF1ab and/or S genes of SARS-CoV-2 via nucleic acid amplification. A Negative (NOT DETECTED) result does not preclude 2019-nCoV infection since the adequacy of sample collection and/or low viral burden may result in presence of viral nucleic acids below the clinical sensitivity of this test method. Negative (NOT DETECTED) result should not be used as the sole basis for treatment or other patient management decisions. Rather negative results should be combined with clinical observations, patient history, and epidemiological information to make patient management decisions. Fact sheet for providers: https://www.fda.gov/media/620748/download Fact sheet for patients: https://www.fda.gov/media/453725/download This test has received FDA Emergency Use Authorization (EUA) and has been verified by [facility] ([facility]). This test is only authorized for the duration of time that circumstances exist to justify the authorization of the emergency use of in vitro diagnostic tests for the detection of SARS-CoV-2 virus and/or diagnosis of COVID-19 infection under section 564(b)(1) of the Act, 21 U.S.C. 360bbb-3(b)(1), unless the authorization is terminated or revoked sooner. [facility] is certified under CLIA-88 as qualified to perform high complexity testing. Testing is performed in the [facility] laboratories located at [address] [place] [address]. Performed By: #### C OINP #### [address] [place] [id number] INFLUENZA A/B, COVID 2019 PC R,SYMPTOMATICon 08-28-2021 DATE OF SYMPTOM ONSET [[id number]]? [id number] Normal [facility] Comment on above: Performed By: #### C OINP #### [facility] [address] [place] [address] Lab Specimen Source Nasal, Nasopharyngeal Normal [facility] Comment on above: Performed By: #### C OINP #### [facility] [address] [place] [id number] PT Progress Noteon 1 PT Progress Note Therapy Diagnosis Assessed Impingement syndrome, shoulder, right (726.2) (M75.41) Shoulder pain, [...] time and is going to attempt independence with HEP. If pt does not elect to resume PT within 30 days, this will serve as his D/C. Refer back in future if necessary. Monitor home program. Patient instructed to call if problems. Assessment Pt confirmed via and Full Name. Pt reassessed this date by supervising PT with improvements noted in Left shoulder AROM and PROM, as well as improvements in LUE MMT compared to initial evaluation. SHe does still present with myofascial restriction throughout Right shoulder girdle musculature and after brief time spent on STM to Right pec/bicep, pt able to demo improved AROM into ER by >/= 10 degrees. Pt reported good understanding of all HEP and symptom management at this time and is appropriate to be placed on hold. Pt does still report difficulty tolerating sleeping on RIght shoulder and if pain persists, pt may benefit from further treatment options, such as injection, from MD to allow for better sleep. Response to treatment: no change in pain, improved flexibility and improved motor control. Adult Risk Screening There are no spiritual/cultural practices/values/needs that are important to know Initial Fall Risk Screening: CHINMAY has fallen in the last 6 months. She has fallen due to Slipped on ice at home in driveway 10/10/20. Her fall did not result in injury. CHINMAY does not have a fear of falling. She does not need assistance with sitting, standing or walking. Does not need assistance walking in her home. She does not need assistance in an unfamiliar setting. The patient is not using an assistive device. Pain Scale: On a scale of 0 to 10, the patient rates the pain at 1. Please identify location of pain: Right Shoulder anterior/superior with movement. Pain Quality: aching. Insurance Insurance reviewed Visit number: POC: [facility] Evaluating therapist Naveen Estrada PT. -->DT M75.41; M25.511 Subjective Patient reports:. Pt notes she is not having any pain at rest but notes her pain can get up to 1-2/10 with use. Pt notes she still has difficulty with pec stretch at doorway and in supine stretches. Pt notes she can tell she has made progress with skilled PT. Patient identified by name and date of . Home program performing as directed: Yes. Precautions: Fall Risk: none Pertinent medical HX includes: osteopenia. Objective Ortho Quick Dash:22--> 15.9-->4.55 Shoulder AROM RUE/LUE: Flexion: 152/WFL-->155 ABD: 130 p! /WFL-->138 still with P! at end range ER: 61 p! /WFL-->65-->80 IR: 88/WFL-->90 UE MMT RUE/LUE-->RUE Shoulder Flexion: 4/4+ -->5/5 Shoulder ABD: 4/4+ -->4+/5 Shoulder ER: 4+/4+ -->5/5 Shoulder IR: 5/5 -->5/5 Elbow Flexion: 5/5 -->5/5 Elbow Extension: 5/5 -->5/5 Supervisor Ditching: good . Observation Palpation: R bicipital groove area tenderness. ROM / Joint Mobility (Range of Motion in degrees) Shoulder: (Fabian: P! Denotes Pain with Movement, * Indicates Dale Resistant Otherwise Measurements are in Supine) Flexion: R Active 145, R Passive 145, L Active 160, L Passive 160. External Rotation (ER) ABDuction: R Passive 70 deg. ER, in 30 deg. ABD, L Passive 90 deg. ER, in 30 deg. ABD Internal Rotation (IR) ABDuction: R Passive 65 deg. IR, in 30 deg. ABD, L Passive 80 deg. IR, in 30 deg. ABD. Anterior R shldr sx with all endrange PROM. Strength Shoulders: (Fabian: P! Denotes Pain with Movement) Shoulder abduction 4/5 on right, pain, 5/5 on left. External rotation at 4+/5 on right, 5/5 on left. Internal rotation at 4-/5 on right, pain, 5/5 on left. Anterior shldr discomfort with MMT. Treatment Time in clinic started at 09:33 Time in clinic ended at 10:18 Total time in clinic is 45 minutes. Total timed code time is 40 minutes. Therapeutic exercise (77525): timed minutes 32, units 2 . UBE 3' fwd, 3? bwd Lv 3 Pt re-assessed for updated POC, updated/reviewed HEP, and discussed continued symptom management x20' Bicep stretch at wall 5x5 holds (N) Not 10/31/2020 Resisted rows purple tube 2 x 10 Resisted ext purple tube 2 x 10 Wall waling w/ lt blue band at wrists 1x15 Stabilize and Reach lt blue x10 B/L Ball on wall 2 x 10 2# -flex/ext, lat -CW, CCW -diagonal Lat raises x 10 2#, x 10 1# (P wt) Delt raises 2 x 10 2# (P weight) Mod Plank shld taps 2 x 10 Cane behind back x10 5? hold Strap IR/ER stretch x10 5? hold each S/L Scap retraction 10x5? holds S/L Scap Retraction AND ER 1# 2x10 S/L scap retraction AND shld Flex 1# x10 S/L scap retraction, Shld Flex to 90, and H ABD 1# 2 x10 Serratus Punches 2 x 10 (X) Supine AND S/L ABC?s 1 cycle 1# Joya 3' flex x 5? holds (P added hold) D/C to HEP Next Nerve glides Median x10 10? hold (X) ER stretch at door 10x10? holds RUE Doorway stretch med/low 10 hold x 5 ea direction . Manual Therapy (02462): timed minutes 8, units 1 . Post GH Mobs gr 3 loose pack (X) STW to R pec, infraspinatus, biceps tendon, upper/mid/low trap x8' Passive ROM all planes (X). 10/05/20 [id number] Provided and reviewed for progression 09/21/20 [id number] Provided and reviewed for progression. 09/16/20 [id number] Provided and reviewed for HEP. Provided today: education and equipment provided . Access Code: [email or web address] URL: [email or web address] Date: 10/31/2020 Prepared by: Nasreen Eubanks Exercises ?Seated Shoulder Abduction AAROM with Joya Behind - 1 x daily - 7 x weekly - 1 sets - 10 reps - 5 hold ?Seated External Rotation in Abduction AAROM with Joya - 1 x daily - 7 x weekly - 1 sets - 10 reps - 5 hold ?Seated Thoracic Lumbar Extension - 1 x daily - 7 x weekly - 3 sets - 10 reps - 5 hold ?Seated Thoracic Lumbar Extension with Pectoralis Stretch - 1 x daily - 7 x weekly - 1 sets - 10 reps - 5 hold ?Standing Bicep Stretch at Wall - 1 x daily - 7 x weekly - 1 sets - 10 reps - 10 hold ?Standing Shoulder Extension with Dowel - 1 x daily - 7 x weekly - 1 sets - 10 reps - 10 hold ?Standing Bilateral Shoulder Internal Rotation AAROM with Dowel - 1 x daily - 7 x weekly - 1 sets - 10 reps - 10 hold . 'Scores and Scales' Signatures Electronically signed by : Nasreen Hutchins, PT; Oct 31 2020 1:35PM EST (Author) Normal [facility]works PT Progress Noteon 1 PT Progress Note Therapy Diagnosis Assessed Impingement syndrome, shoulder, right (726.2) (M75.41) Shoulder pain, [...] management and therapeutic exercises. Frequency and duration: 1 time(s) a week, for 4 weeks, for 4 visits. Potential to achieve rehab goals is good Continue to progress UE strength and ROM for improved daily function and for decreased pain. Progress with POC, as tolerated. Assessment End range tightness with passive flexion. Fatigues quickly with wall exercises. Instructed patient to complete exercises slower d/t using momentum with delt exercises. Improved technique afterward. Response to treatment: no change in pain, improved flexibility and improved motor control. Adult Risk Screening There are no spiritual/cultural practices/values/needs that are important to know Initial Fall Risk Screening: CHINMAY has fallen in the last 6 months. She has fallen due to Slipped on ice at home in driveway 10/10/20. Her fall did not result in injury. CHINMAY does not have a fear of falling. She does not need assistance with sitting, standing or walking. Does not need assistance walking in her home. She does not need assistance in an unfamiliar setting. The patient is not using an assistive device. Pain Scale: On a scale of 0 to 10, the patient rates the pain at 2. Please identify location of pain: Right Shoulder anterior/superior. Insurance Insurance reviewed Visit number: 16 POC: 07/27 [facility] Evaluating therapist Naveen Estrada PT. -->DT M75.41; M25.511 Subjective Patient reports:. Patient reports that her shoulder pain is 1/10. Notes that she had increased soreness yesterday. Patient identified by name and date of . Home program performing as directed: Yes. Precautions: Fall Risk: none Pertinent medical HX includes: osteopenia. Treatment Time in clinic started at 09:15 Time in clinic ended at 10:00 Total time in clinic is 45 minutes. Total timed code time is 44 minutes. Therapeutic exercise (29562): timed minutes 32, units 2 . UBE 3' fwd, 3? bwd Lv 3 Resisted rows purple tube 2 x 10 Resisted ext purple tube 2 x 10 Wall waling w/ lt blue band at wrists 1x15 Stabilize and Reach lt blue x10 B/L Ball on wall 2 x 10 2# -flex/ext, lat -CW, CCW -diagonal Lat raises x 10 2#, x 10 1# (P wt) Delt raises 2 x 10 2# (P weight) Mod Plank shld taps 2 x 10 Cane behind back x10 5? hold Strap IR/ER stretch x10 5? hold each S/L Scap retraction 10x5? holds S/L Scap Retraction AND ER 1# 2x10 S/L scap retraction AND shld Flex 1# x10 S/L scap retraction, Shld Flex to 90, and H ABD 1# 2 x10 Serratus Punches 2 x 10 (X) Supine AND S/L ABC?s 1 cycle 1# Not this date: Joya 3' flex x 5? holds (P added hold) D/C to HEP Next Nerve glides Median x10 10? hold (X) ER stretch at door 10x10? holds RUE Doorway stretch med/low 10 hold x 5 ea direction . Manual Therapy (56946): timed minutes 12, units 1 . Post GH Mobs gr 3 loose pack STW to R pec, infraspinatus, biceps tendon, upper/mid/low trap Passive ROM all planes x8'. 10/05/20 [id number] Provided and reviewed for progression 09/21/20 [id number] Provided and reviewed for progression. 09/16/20 [id number] Provided and reviewed for HEP. Provided today: education and equipment provided . D/C to HEP Foam roll -pec stretch 1? -butter fly x15 -snow aroldo x15 -scissors x15 -hugs x15 Resisted rows 2 x 10 Purple Resisted extension 2 x 10 purple Resisted Green -ER 2x10 -IR 2x10 -flex 2x10 -ext 2x10 Cane ER 5 hold x 10 . 'Scores and Scales' Signatures Electronically signed by : Shawanda Perez [employer]ENTAL SUPERVISOR; Oct 26 2020 1:03PM EST (Author) Electronically signed by : Nasreen Hutchins, PT; Oct 31 2020 8:26AM EST Normal [facility]works PT Progress Noteon PT Progress Note Therapy Diagnosis Assessed Impingement syndrome, shoulder, right (726.2) (M75.41) Shoulder pain, right (719.41) (M25.511) Plan Goals: Goals set and discussed today. 1. Independent HEP to allow for 50% reduction in max ADL C/C sx ( 810) 2-3wks 2. 0/10 night time sx to [...] management and therapeutic exercises. Frequency and duration: 1 time(s) a week, for 4 weeks, for 4 visits. Potential to achieve rehab goals is good Continue to progress UE strength and ROM for improved daily function and for decreased pain. Progress with POC, as tolerated. Assessment Mild end range tightness with passive flexion and ER this date. Improved eccentric control with resisted rows and extension. Response to treatment: no change in pain, improved joint mobility/ROM, improved endurance, improved posture and improved knowledge and understanding of condition. Adult Risk Screening There are no spiritual/cultural practices/values/needs that are important to know Initial Fall Risk Screening: CHINMAY has fallen in the last 6 months. She has fallen due to Slipped on ice at home in driveway 10/10/20. Her fall did not result in injury. CHINMAY does not have a fear of falling. She does not need assistance with sitting, standing or walking. Does not need assistance walking in her home. She does not need assistance in an unfamiliar setting. The patient is not using an assistive device. Pain Scale: On a scale of 0 to 10, the patient rates the pain at 2. Please identify location of pain: Right Shoulder anterior/superior. Insurance Insurance reviewed Visit number: 15 POC: 07/27 [facility] Evaluating therapist Naveen Estrada PT. -->DT M75.41; M25.511 Subjective Patient reports:. Patient reports that she is still having trouble sleeping at night d/t shoulder symptoms. Pain level is 2/10 upon arrival. Patient identified by name and date of . Home program performing as directed: Yes. Precautions: Fall Risk: none Pertinent medical HX includes: osteopenia. Treatment Time in clinic started at 09:15 Time in clinic ended at 10:00 Total time in clinic is 45 minutes. Total timed code time is 44 minutes. Therapeutic exercise (05844): timed minutes 32, units 2 . UBE 3' fwd, 3? bwd Lv 3 Resisted rows purple tube 2 x 10 (N) Resisted ext purple tube 2 x 10 (N) Wall waling w/ lt blue band at wrists 1x15 Stabilize and Reach lt blue x10 B/L Ball on wall 2 x 10 2# -flex/ext, lat -CW, CCW -diagonal Lat raises 2 x 10 1# Delt raises 2 x 10 1# Mod Plank shld taps 2 x 10 Cane behind back x10 5? hold Strap IR/ER stretch x10 5? hold each S/L Scap retraction 10x5? holds S/L Scap Retraction AND ER 1# 2x10 S/L scap retraction AND shld Flex 1# x10 S/L scap retraction, Shld Flex to 90, and H ABD 1# 2 x10 Serratus Punches 2 x 10 (X) Supine AND S/L ABC?s 1 cycle 1# Not this date: Joya 3' flex x 5? holds (P added hold) D/C to HEP Next Nerve glides Median x10 10? hold (X) ER stretch at door 10x10? holds RUE Doorway stretch med/low 10 hold x 5 ea direction . Manual Therapy (11472): timed minutes 12, units 1 . Post GH Mobs gr 3 loose pack STW to R pec, infraspinatus, biceps tendon, upper/mid/low trap Passive ROM all planes x8'. 10/05/20 [id number] Provided and reviewed for progression 09/21/20 [id number] Provided and reviewed for progression. 09/16/20 [id number] Provided and reviewed for HEP. Provided today: education and equipment provided . D/C to HEP Foam roll -pec stretch 1? -butter fly x15 -snow aroldo x15 -scissors x15 -hugs x15 Resisted rows 2 x 10 Purple Resisted extension 2 x 10 purple Resisted Green -ER 2x10 -IR 2x10 -flex 2x10 -ext 2x10 Cane ER 5 hold x 10 . 'Scores and Scales' Signatures Electronically signed by : Shawanda Perez [employer] SUPERVISOR; Oct 19 2020 1:01PM EST (Author) Electronically signed by : Nasreen Hutchins, PT; Oct 25 2020 1:45PM EST Normal [facility] PT Progress Noteon PT Progress Note Therapy Diagnosis Assessed Impingement syndrome, shoulder, right (726.2) (M75.41) Shoulder pain, [...] management and therapeutic exercises. Frequency and duration: 1 time(s) a week, for 4 weeks, for 4 visits. Potential to achieve rehab goals is good Continue to progress scap strength as able for improved strength with ADL's. Progress with POC, as tolerated. Assessment Patient needs cues for correct form with PRE's. Fatigues quickly with scapular exercises and is very challenged. Weakness with resist and reach. Response to treatment: decreased pain. Adult Risk Screening There are no spiritual/cultural practices/values/needs that are important to know Initial Fall Risk Screening: CHINMAY has fallen in the last 6 months. She has fallen due to Slipped on ice at home in driveway 10/10/20. Her fall did not result in injury. CHINMAY does not have a fear of falling. She does not need assistance with sitting, standing or walking. Does not need assistance walking in her home. She does not need assistance in an unfamiliar setting. The patient is not using an assistive device. Pain Scale: On a scale of 0 to 10, the patient rates the pain at 2. Please identify location of pain: Right Shoulder anterior/superior. Insurance Insurance reviewed Visit number: 14 POC: 07/27 [facility] Evaluating therapist Naveen Estrada PT. -->DT M75.41; M25.511 Subjective Patient reports:. Patient reported she fell in her driveway earlier in the week d/t slipping on the ice. States that her tailbone fees bruised. 2/10 pain upon arrival to PT today. Notes that she made the bed and that is maybe the cause of her symptoms. Patient identified by name and date of . Home program performing as directed: Yes. Precautions: Fall Risk: none Pertinent medical HX includes: osteopenia. Treatment Time in clinic started at 09:15 Time in clinic ended at 10:00 Total time in clinic is 45 minutes. Total timed code time is 44 minutes. Therapeutic exercise (44282): timed minutes 32, units 2 . UBE 3' fwd, 3? bwd Lv 3 Serratus shld flex/wall slides lt blue at wrists 1x15 Stabilize and Reach lt blue x10 B/L Ball on wall 2 x 10 2# -flex/ext, lat -CW, CCW -diagonal Lat raises 2 x 10 1# Delt raises 2 x 10 1# Mod Plank shld taps 2 x 10 Cane behind back x10 5? hold (N) Strap IR/ER stretch x10 5? hold each (N) S/L Scap retraction 10x5? holds S/L Scap Retraction AND ER 1# 2x10 S/L scap retraction AND shld Flex 1# x10 S/L scap retraction, Shld Flex to 90, and H ABD 1# 2 x10 Serratus Punches 2 x 10 (X) Supine AND S/L ABC?s 1 cycle 1# Not this date: Joya 3' flex x 5? holds (P added hold) D/C to HEP Next Nerve glides Median x10 10? hold (X) ER stretch at door 10x10? holds RUE Doorway stretch med/low 10 hold x 5 ea direction . Manual Therapy (26753): timed minutes 12, units 1 . Post GH Mobs gr 3 loose pack STW to R pec, infraspinatus, biceps tendon, upper/mid/low trap Passive ROM all planes x8'. 10/05/20 [id number] Provided and reviewed for progression 09/21/20 [id number] Provided and reviewed for progression. 09/16/20 [id number] Provided and reviewed for HEP. Provided today: education and equipment provided . D/C to HEP Foam roll -pec stretch 1? -butter fly x15 -snow aroldo x15 -scissors x15 -hugs x15 Resisted rows 2 x 10 Purple Resisted extension 2 x 10 purple Resisted Green -ER 2x10 -IR 2x10 -flex 2x10 -ext 2x10 Cane ER 5 hold x 10 . 'Scores and Scales' Signatures Electronically signed by : Shawanda Perez [employer] SUPERVISOR; Oct 14 2020 10:00AM EST (Author) Electronically signed by : Nasreen Hutchins, PT; Oct 25 2020 1:45PM EST Normal [facility] PT Progress Noteon PT Progress Note Therapy Diagnosis Assessed Impingement syndrome, shoulder, right (726.2) (M75.41) Shoulder pain, [...] management and therapeutic exercises. Frequency and duration: 1 time(s) a week, for 4 weeks, for 4 visits. Potential to achieve rehab goals is good Continue to progress strength for improved ADLs and focus on progression of scapular stabilization exercises for improved ease reaching away from body and behind back. Progress with POC, as tolerated. Assessment Patient identified by name and date of . Patient was able to tolerate progression of strengthening and ROM with additional reps and weight alonge with strap stretch and cane stretch. She presented with firm end feel with flexion and ER. Adult Risk Screening There are no spiritual/cultural practices/values/needs that are important to know Initial Fall Risk Screening: CHINMAY has not fallen in the last 6 months. CHINMAY does not have a fear of falling. She does not need assistance with sitting, standing or walking. Does not need assistance walking in her home. She does not need assistance in an unfamiliar setting. The patient is not using an assistive device. Pain Scale: On a scale of 0 to 10, the patient rates the pain at 2. Please identify location of pain: Right Shoulder anterior/superior. Insurance Insurance reviewed Visit number: 12 POC: 07/27 [facility] Evaluating therapist Naveen Estrada PT. -->DT M75.41; M25.511 Subjective Patient reports:. Patient reported she experienced increased Sx after her last session. She reported 2-3/10 soreness after treatment. Home program performing as directed: Yes. Precautions: Fall Risk: none Pertinent medical HX includes: osteopenia. Treatment Time in clinic started at 09:14 Time in clinic ended at 09:59 Total time in clinic is 45 minutes. Total timed code time is 42 minutes. Therapeutic exercise (75846): timed minutes 30, units 2 . UBE 3' fwd, 3? bwd Lv 3 Serratus shld flex/wall slides lt blue at wrists 1x15 Stabilize and Reach lt blue x10 B/L Ball on wall 2 x 10 2# -flex/ext, lat -CW, CCW -diagonal Lat raises 2 x 10 1# Delt raises 2 x 10 1# Mod Plank shld taps 2 x 10 Cane behind back x10 5? hold (N) Strap IR/ER stretch x10 5? hold each (N) S/L Scap retraction 10x5? holds S/L Scap Retraction AND ER 1# 2x10 S/L scap retraction AND shld Flex 1# x10 S/L scap retraction, Shld Flex to 90, and H ABD 1# 2 x10 (P) Serratus Punches 2 x 10 (X) Supine AND S/L ABC?s 1 cycle 1# Not this date: Joya 3' flex x 5? holds (P added hold) D/C to HEP Next Nerve glides Median x10 10? hold (X) ER stretch at door 10x10? holds RUE Doorway stretch med/low 10 hold x 5 ea direction . Manual Therapy (25795): timed minutes 12, units 1 . Post GH Mobs gr 3 loose pack STW to R pec, infraspinatus, biceps tendon, upper/mid/low trap Passive ROM all planes x8'. 10/05/20 [id number] Provided and reviewed for progression 09/21/20 [id number] Provided and reviewed for progression. 09/16/20 [id number] Provided and reviewed for HEP. Provided today: education and equipment provided . D/C to HEP Foam roll -pec stretch 1? -butter fly x15 -snow aroldo x15 -scissors x15 -hugs x15 Resisted rows 2 x 10 Purple Resisted extension 2 x 10 purple Resisted Green -ER 2x10 -IR 2x10 -flex 2x10 -ext 2x10 Cane ER 5 hold x 10 . 'Scores and Scales' Signatures Electronically signed by : Mary Dyson [employer]ENTAL SUPERVISOR; Oct 05 2020 10:22AM EST (Author) Electronically signed by : Nasreen Hutchins PT; Oct 25 2020 1:45PM EST Normal [facility] PT Progress Noteon PT Progress Note Therapy Diagnosis Assessed Impingement syndrome, shoulder, right (726.2) (M75.41) Shoulder pain, [...] management and therapeutic exercises. Frequency and duration: 1 time(s) a week, for 4 weeks, for 4 visits. Potential to achieve rehab goals is good Continue to progress strength for improved ADLs and focus on progression of scapular stabilization exercises for improved ease reaching away from body and behind back. Progress with POC, as tolerated. Assessment Pt reassessed this session for her R shoulder pain. She has good shoulder ROM but begins to have impingement above about 120 degrees of flexion/abduction. The patient has good gross strength in her B/L UE. The patient would benefit from continued therapy to continue to strengthen scapular stabilizers, improve her posture, and improve her pain-free shoulder AROM. Response to treatment: no change in pain, improved strength, improved flexibility and improved motor control. Adult Risk Screening There are no spiritual/cultural practices/values/needs that are important to know Initial Fall Risk Screening: CHINMAY has not fallen in the last 6 months. CHINMAY does not have a fear of falling. She does not need assistance with sitting, standing or walking. Does not need assistance walking in her home. She does not need assistance in an unfamiliar setting. The patient is not using an assistive device. Pain Scale: On a scale of 0 to 10, the patient rates the pain at 0. Please identify location of pain: Right Shoulder anterior/superior. Insurance Insurance reviewed Visit number: 11 POC: 06/27 [facility] Evaluating therapist Naveen Denisvalerie PT. -->DT M75.41; M25.511 Subjective Patient reports:. Pt states she is still having trouble with some of her ADLs such as dressing because she has R shoulder pain with ER and IR. She states her R shoulder pain is 1/10 currently, but is was worse this morning and woke her up at night. She iced her shoulder and that improved her pain. Patient identified by name and date of . Home program performing as directed: Yes. Precautions: Fall Risk: none Pertinent medical HX includes: osteopenia. Objective Ortho Quick Dash:22--> 15.9 Shoulder AROM RUE/LUE: Flexion: 152/WFL ABD: 130 p! /WFL ER: 61 p! /WFL IR: 88/WFL UE MMT RUE/LUE: Shoulder Flexion: 4/4+ Shoulder ABD: 4/4+ Shoulder ER: 4+/4+ Shoulder IR: 5/5 Elbow Flexion: 5/5 Elbow Extension: 5/5 Supervisor Ditching: good Palpation: tenderness to palpation in R biceps tendon, pec, UT, rhomboids, mid/low trap, infraspinatus Joint Mobility: GH RUE Posterior: 2/6 Inferior: 3/6 Posture: rounded shoulders, mild forward head . Observation Palpation: R bicipital groove area tenderness. ROM / Joint Mobility (Range of Motion in degrees) Shoulder: (Fabian: P! Denotes Pain with Movement, * Indicates Dale Resistant Otherwise Measurements are in Supine) Flexion: R Active 145, R Passive 145, L Active 160, L Passive 160. External Rotation (ER) ABDuction: R Passive 70 deg. ER, in 30 deg. ABD, L Passive 90 deg. ER, in 30 deg. ABD Internal Rotation (IR) ABDuction: R Passive 65 deg. IR, in 30 deg. ABD, L Passive 80 deg. IR, in 30 deg. ABD. Anterior R shldr sx with all endrange PROM. Strength Shoulders: (Fabian: P! Denotes Pain with Movement) Shoulder abduction 4/5 on right, pain, 5/5 on left. External rotation at 4+/5 on right, 5/5 on left. Internal rotation at 4-/5 on right, pain, 5/5 on left. Anterior shldr discomfort with MMT. Treatment Time in clinic started at 11:27 am Time in clinic ended at 12:12 am Total time in clinic is 45 minutes. Total timed code time is 43 minutes. Therapeutic exercise (25486): timed minutes 30, units 2 . UBE 3' fwd, 3? bwd Lv 3 Pt reassessed this session for shoulder ROM, strength, joint mobility, and muscular restrictions. Not done today 10/03/2020: ER stretch at door 10x10? holds RUE Doorway stretch med/low 10 hold x 5 ea direction Serratus shld flex/wall slides lt blue at wrists 1x15 Stabilize and Reach lt blue x10 B/L Ball on wall 2 x 10 2# -flex/ext, lat -CW, CCW Lat raises 2 x 10 1# Delt raises 2 x 10 1# Supine AND S/L ABC?s 1 cycle 1# S/L Scap retraction 10x5? holds S/L Scap Retraction AND ER 1# 2x10 S/L scap retraction AND shld Flex 1# x10 S/C scap retraction, Shld Flex to 90, and H ABD 1# 2 x10 (P) Mod Plank shld taps 2 x 10 Serratus Punches 2 x 10 Cane behind back (A) Not this date: Joya 3' flex x 5? holds (P added hold) D/C to HEP Next Nerve glides Median x10 10? hold (X) . Manual Therapy (07716): timed minutes 13, units 1 . Post GH Mobs gr 3 loose pack STW to R pec, infraspinatus, biceps tendon, upper/mid/low trap Passive ROM all planes x8' (X). 09/21/20 [id number] Provided and reviewed for progression. 09/16/20 [id number] Provided and reviewed for HEP. Provided today: education and equipment provided . D/C to HEP Foam roll -pec stretch 1? -butter fly x15 -snow aroldo x15 -scissors x15 -hugs x15 Resisted rows 2 x 10 Purple Resisted extension 2 x 10 purple Resisted Green -ER 2x10 -IR 2x10 -flex 2x10 -ext 2x10 Cane ER 5 hold x 10 . Contacts for Physician Signature First attempt date: 10/03/2020. Referring Provider Signature: I am in agreement with the above plan of care. Referring Provider Signature __, Date/Time 'Scores and Scales' Signatures Electronically signed by : Nasreen Hutchins, PT; Oct 03 2020 6:10PM EST (Author) [facility] Therapy Re-eval Noteon 10-03 Therapy Re-eval Note Therapy Diagnosis Assessed 1. Impingement syndrome, shoulder, right (726.2) (M75.41) 2. Shoulder pain, right (719.41) (M25.511) Plan Goals: Goals set and discussed today. 1. Independent HEP to allow for 50% reduction in max ADL C/C sx ( 03/21) 2-3wks 2. 0/10 night time sx to [...] management and therapeutic exercises. Frequency and duration: 1 time(s) a week, for 4 weeks, for 4 visits. Potential to achieve rehab goals is good Continue to progress strength for improved ADLs and focus on progression of scapular stabilization exercises for improved ease reaching away from body and behind back. Progress with POC, as tolerated. Assessment Pt reassessed this session for her R shoulder pain. She has good shoulder ROM but begins to have impingement above about 120 degrees of flexion/abduction. The patient has good gross strength in her B/L UE. The patient would benefit from continued therapy to continue to strengthen scapular stabilizers, improve her posture, and improve her pain-free shoulder AROM. Response to treatment: no change in pain, improved strength, improved flexibility and improved motor control. Adult Risk Screening There are no spiritual/cultural practices/values/needs that are important to know Initial Fall Risk Screening: CHINMAY has not fallen in the last 6 months. CHINMAY does not have a fear of falling. She does not need assistance with sitting, standing or walking. Does not need assistance walking in her home. She does not need assistance in an unfamiliar setting. The patient is not using an assistive device. Pain Scale: On a scale of 0 to 10, the patient rates the pain at 0. Please identify location of pain: Right Shoulder anterior/superior. Insurance Insurance reviewed Visit number: 11 POC: 06/27 [facility] Evaluating therapist Naveen Estrada PT. -->DT M75.41; M25.511 Subjective Patient reports:. Pt states she is still having trouble with some of her ADLs such as dressing because she has R shoulder pain with ER and IR. She states her R shoulder pain is 1/10 currently, but is was worse this morning and woke her up at night. She iced her shoulder and that improved her pain. Patient identified by name and date of . Home program performing as directed: Yes. Precautions: Fall Risk: none Pertinent medical HX includes: osteopenia. Objective Ortho Quick Dash:22--> 15.9 Shoulder AROM RUE/LUE: Flexion: 152/WFL ABD: 130 p! /WFL ER: 61 p! /WFL IR: 88/WFL UE MMT RUE/LUE: Shoulder Flexion: 4/4+ Shoulder ABD: 4/4+ Shoulder ER: 4+/4+ Shoulder IR: 5/5 Elbow Flexion: 5/5 Elbow Extension: 5/5 Supervisor Ditching: good Palpation: tenderness to palpation in R biceps tendon, pec, UT, rhomboids, mid/low trap, infraspinatus Joint Mobility: GH RUE Posterior: 2/6 Inferior: 3/6 Posture: rounded shoulders, mild forward head . Observation Palpation: R bicipital groove area tenderness. ROM / Joint Mobility (Range of Motion in degrees) Shoulder: (Fabian: P! Denotes Pain with Movement, * Indicates Dale Resistant Otherwise Measurements are in Supine) Flexion: R Active 145, R Passive 145, L Active 160, L Passive 160. External Rotation (ER) ABDuction: R Passive 70 deg. ER, in 30 deg. ABD, L Passive 90 deg. ER, in 30 deg. ABD Internal Rotation (IR) ABDuction: R Passive 65 deg. IR, in 30 deg. ABD, L Passive 80 deg. IR, in 30 deg. ABD. Anterior R shldr sx with all endrange PROM. Strength Shoulders: (Fabian: P! Denotes Pain with Movement) Shoulder abduction 4/5 on right, pain, 5/5 on left. External rotation at 4+/5 on right, 5/5 on left. Internal rotation at 4-/5 on right, pain, 5/5 on left. Anterior shldr discomfort with MMT. Treatment Time in clinic started at 11:27 am Time in clinic ended at 12:12 am Total time in clinic is 45 minutes. Total timed code time is 43 minutes. Therapeutic exercise (74977): timed minutes 30, units 2 . UBE 3' fwd, 3? bwd Lv 3 Pt reassessed this session for shoulder ROM, strength, joint mobility, and muscular restrictions. Not done today 10/03/2020: ER stretch at door 10x10? holds RUE Doorway stretch med/low 10 hold x 5 ea direction Serratus shld flex/wall slides lt blue at wrists 1x15 Stabilize and Reach lt blue x10 B/L Ball on wall 2 x 10 2# -flex/ext, lat -CW, CCW Lat raises 2 x 10 1# Delt raises 2 x 10 1# Supine AND S/L ABC?s 1 cycle 1# S/L Scap retraction 10x5? holds S/L Scap Retraction AND ER 1# 2x10 S/L scap retraction AND shld Flex 1# x10 S/C scap retraction, Shld Flex to 90, and H ABD 1# 2 x10 (P) Mod Plank shld taps 2 x 10 Serratus Punches 2 x 10 Cane behind back (A) Not this date: Joya 3' flex x 5? holds (P added hold) D/C to HEP Next Nerve glides Median x10 10? hold (X) . Manual Therapy (83841): timed minutes 13, units 1 . Post GH Mobs gr 3 loose pack STW to R pec, infraspinatus, biceps tendon, upper/mid/low trap Passive ROM all planes x8' (X). 09/21/20 [id number] Provided and reviewed for progression. 09/16/20 [id number] Provided and reviewed for HEP. Provided today: education and equipment provided . D/C to HEP Foam roll -pec stretch 1? -butter fly x15 -snow aroldo x15 -scissors x15 -hugs x15 Resisted rows 2 x 10 Purple Resisted extension 2 x 10 purple Resisted Green -ER 2x10 -IR 2x10 -flex 2x10 -ext 2x10 Cane ER 5 hold x 10 . Contacts for Physician Signature First attempt date: 10/03/2020. Referring Provider Signature: I am in agreement with the above plan of care. Referring Provider Signature __, Date/Time 'Scores and Scales' Signatures Electronically signed by : Nasreen Hutchins, PT; Oct 03 2020 6:10PM EST (Author) Normal [facility] PT Progress Noteon PT Progress Note Therapy Diagnosis Assessed Impingement syndrome, shoulder, right (726.2) (M75.41) Shoulder pain, right (719.41) (M25.511) Plan Goals: Goals set and discussed today. 1. Independent HEP to allow for 50% reduction in max ADL C/C sx ( 8/10) 2-3wks 2. 0/10 night time sx to allow for uninterrupted sleep x1wk ( 77) 2-3wks 3. Survey score improvement from 22% to 10% (QDI) 3-4wks 4. ROM increase to allow for improved ADL dressing uppers, reaching (from 145 to 155 active elevation) 3-4wks 5. Strength increase to allow for improved ADL carrying, object handling (from gr4-/4 to gr 4+) 3-4wks Planned interventions include: cryotherapy, dry needling, education/instruction, electrical stimulation, home program, hot pack, kinesiotaping, manual therapy, self care/home management and therapeutic exercises. Frequency and duration: 3 time(s) a week, for 4 weeks, for 12 visits. Potential to achieve rehab goals is good Continue to progress strength for improved ADLs. Progress with POC, as tolerated. Assessment Cues for correct form and technique with resistance PRE's at wall. Mild GH elevation with lateral delts observed. Response to treatment: no change in pain, improved strength, improved flexibility and improved motor control. Adult Risk Screening There are no spiritual/cultural practices/values/needs that are important to know Initial Fall Risk Screening: CHINMAY has not fallen in the last 6 months. CHINMAY does not have a fear of falling. She does not need assistance with sitting, standing or walking. Does not need assistance walking in her home. She does not need assistance in an unfamiliar setting. The patient is not using an assistive device. Pain Scale: On a scale of 0 to 10, the patient rates the pain at 0. Please identify location of pain: Right SHoulder anterior/superior. Insurance Insurance reviewed Visit number: 10 [facility] Evaluating therapist Naveen Estrada PT. M75.41; M25.498 Subjective Patient reports:. Patient reports that she is at a 2/10 upon arrival. Notes that she has been having some soreness in the shoulder but the exercises make it feel better. Patient identified by name and date of . Home program performing as directed: Yes. Precautions: Fall Risk: none Pertinent medical HX includes: osteopenia. Treatment Time in clinic started at 09:15 Time in clinic ended at 10:00 Total time in clinic is 45 minutes. Total timed code time is 43 minutes. Therapeutic exercise (67746): timed minutes 33, units 2 . UBE 3' fwd, 3? bwd Lv 3 ER stretch at door 10x10? holds RUE Doorway stretch med/low 10 hold x 5 ea direction Serratus shld flex/wall slides lt blue at wrists 1x15 Stabilize and Reach lt blue x10 B/L Ball on wall 2 x 10 2# -flex/ext, lat -CW, CCW Lat raises 2 x 10 1# Delt raises 2 x 10 1# Supine AND S/L ABC?s 1 cycle 1# S/L Scap retraction 10x5? holds S/L Scap Retraction AND ER 1# 2x10 S/L scap retraction AND shld Flex 1# x10 S/C scap retraction, Shld Flex to 90, and H ABD 1# 2 x10 (P) Mod Plank shld taps 2 x 10 Serratus Punches 2 x 10 Not this date: Joya 3' flex x 5? holds (P added hold) D/C to HEP Next Nerve glides Median x10 10? hold (X) . Manual Therapy (21962): timed minutes 10, units 1 . Inf AND Post GH Mobs gr 2-3 loose pack x 2' Passive ROM all planes x8' STW to pec (X). 09/21/20 [id number] Provided and reviewed for progression. 09/16/20 [id number] Provided and reviewed for HEP. Provided today: education and equipment provided . D/C to HEP Foam roll -pec stretch 1? -butter fly x15 -snow aroldo x15 -scissors x15 -hugs x15 Resisted rows 2 x 10 Purple Resisted extension 2 x 10 purple Resisted Green -ER 2x10 -IR 2x10 -flex 2x10 -ext 2x10 Cane ER 5 hold x 10 . 'Scores and Scales' Signatures Electronically signed by : Shawanda Perez [employer]ENTAL SUPERVISOR; Sep 30 2020 11:45AM EST (Author) Electronically signed by : Nasreen Hutchins, PT; Oct 02 2020 5:56PM EST Normal [facility] PT Progress Noteon PT Progress Note Therapy Diagnosis Assessed Impingement syndrome, shoulder, right (726.2) (M75.41) Shoulder pain, [...] object handling (from gr4-/4 to gr 4+) 3-4wks Planned interventions include: cryotherapy, dry needling, education/instruction, electrical stimulation, home program, hot pack, kinesiotaping, manual therapy, self care/home management and therapeutic exercises. Frequency and duration: 3 time(s) a week, for 4 weeks, for 12 visits. Potential to achieve rehab goals is good Plan to continue with joint mobilization to improve inf and post joint mobility and progress with shoulder ROM, strengthening, and stabilization exercises to improve ease of prolonged use of RUE for ADL's and IADL's. Progress with POC, as tolerated. Assessment Patient identified by name and date of . Patient is progressing well with ROM and Strengthening. She demonstrated fatigue with ball on wall and resisted reach. She presented with increased ROM with PROM with frim end feel with ER. Adult Risk Screening There are no spiritual/cultural practices/values/needs that are important to know Initial Fall Risk Screening: CHINMAY has not fallen in the last 6 months. CHINMAY does not have a fear of falling. She does not need assistance with sitting, standing or walking. Does not need assistance walking in her home. She does not need assistance in an unfamiliar setting. The patient is not using an assistive device. Pain Scale: On a scale of 0 to 10, the patient rates the pain at 0. Please identify location of pain: Right SHoulder anterior/superior. Insurance Insurance reviewed Visit number: [facility] Naveen Estrada PT. M75.41; M25.511 Subjective Patient reports:. Patient reported 2/10 pain after treatment. Home program performing as directed: Yes. Precautions: Fall Risk: none Pertinent medical HX includes: osteopenia. Treatment Time in clinic started at 09:15 Time in clinic ended at 10:00 Total time in clinic is 45 minutes. Total timed code time is 43 minutes. Therapeutic exercise (42176): timed minutes 33, units 2 . UBE 3' fwd, 3? bwd Lv 3 (P lv) ER stretch at door 10x10? holds RUE (P) Doorway stretch med/low 10 hold x 5 ea direction Serratus shld flex/wall slides lt blue at wrists 1x15 Stabilize and Reach lt blue x10 B/L (P) Ball on wall 2 x 10 2# (P) -flex/ext, lat -CW, CCW Lat raises 2 x 10 1# (P) Delt raises 2 x 10 1# (P) Supine AND S/L ABC?s 1 cycle 1# S/L Scap retraction 10x5? holds S/L Scap Retraction AND ER 1# 2x10 (P) S/L scap retraction AND shld Flex 1# x10 S/C scap retraction, Shld Flex to 90, and H ABD 1# x10 Mod Plank shld taps 2 x 10 (N) Serratus Punches 2 x 10 (N) Not this date: Joya 3' flex x 5? holds (P added hold) D/C to HEP Next Nerve glides Median x10 10? hold (X) . Manual Therapy (06984): timed minutes 10, units 1 . Inf AND Post GH Mobs gr 2-3 loose pack x 7' Passive ROM all planes x3' STW to pec (X). 09/21/20 [id number] Provided and reviewed for progression. 09/16/20 [id number] Provided and reviewed for HEP. Provided today: education and equipment provided . D/C to HEP Foam roll -pec stretch 1? -butter fly x15 -snow aroldo x15 -scissors x15 -hugs x15 Resisted rows 2 x 10 Purple Resisted extension 2 x 10 purple Resisted Green -ER 2x10 -IR 2x10 -flex 2x10 -ext 2x10 Cane ER 5 hold x 10 . 'Scores and Scales' Signatures Electronically signed by : Mary Dyson [employer]ENTAL SUPERVISOR; Sep 28 2020 10:11AM EST (Author) Electronically signed by : Nasreen Hutchins, PT; Sep 28 2020 10:15AM EST Normal [facility] PT Progress Noteon PT Progress Note Therapy Diagnosis Assessed Impingement syndrome, shoulder, right (726.2) (M75.41) Shoulder pain, [...] object handling (from gr4-/4 to gr 4+) 3-4wks Planned interventions include: cryotherapy, dry needling, education/instruction, electrical stimulation, home program, hot pack, kinesiotaping, manual therapy, self care/home management and therapeutic exercises. Frequency and duration: 3 time(s) a week, for 4 weeks, for 12 visits. Potential to achieve rehab goals is good Plan to continue with joint mobilization to improve inf and post joint mobility and progress with shoulder ROM, strengthening, and stabilization exercises to improve ease of prolonged use of RUE for ADL's and IADL's. Progress with POC, as tolerated. Assessment Patient identified by name and date of . D/C some ther-ex to HEP due to consistency of pt at this time. Pt tolerated progression of ther-ex for Right shoulder stabilization/strengthe maira this date with min-no increased c/o pain but did require cueing throughout session for proper motor control and mechanics. Pt responded well to addition of joint mobilizations to Right GH joint prior to PROM this session. Voiced good understanding of edu to perform self-release techniques to posterior scap musculature. Response to treatment: decreased pain, improved joint mobility/ROM and improved knowledge and understanding of condition. Adult Risk Screening There are no spiritual/cultural practices/values/needs that are important to know Initial Fall Risk Screening: CHINMAY has not fallen in the last 6 months. CHINMAY does not have a fear of falling. She does not need assistance with sitting, standing or walking. Does not need assistance walking in her home. She does not need assistance in an unfamiliar setting. The patient is not using an assistive device. Pain Scale: On a scale of 0 to 10, the patient rates the pain at 2. Please identify location of pain: Right SHoulder anterior/superior. Pain Quality: aching and sharp. Insurance Insurance reviewed Visit number: 8 [employer] Evaluating therapist Naveen Estrada PT. M75.41; M25.511 Subjective Patient reports:. Pt notes she thinks during the day the shoulder is starting to feel better but notes it still wakes her up at night and will get up to a 6-7/10 and notes she has to get ice and takes about an hour before getting back to sleep. Pt notes difficulty with ER stretch with cane but consistent with HEP. Home program performing as directed: Yes. Precautions: Fall Risk: none Pertinent medical HX includes: osteopenia. Treatment Time in clinic started at 09:15 am Time in clinic ended at 10:05 am Total time in clinic is 50 minutes. Total timed code time is 43 minutes. Therapeutic exercise (57304): timed minutes 33, units 2 . UBE 3' fwd, 3? bwd Lv 3 (P lv) Joya 3' flex x 5? holds (P added hold) D/C to HEP Next ER stretch at door 10x10? holds RUE (N) Serratus shld flex/wall slides lt blue at wrists 1x15 (N) Stabilize and Reach lt blue x5 B/L (N) Doorway stretch med/low 10 hold x 5 ea direction Ball on wall 2 x 10 (I) -flex/ext, lat -CW, CCW Lat raises 2 x 10 0# (I) Delt raises 2 x 10 0# (I) Supine AND S/L ABC?s 1 cycle 1# (N) S/L Scap retraction 10x5? holds (N) S/L Scap Retraction AND ER 1# x10 (N) S/L scap retraction AND shld Flex 1# x10 (N) S/C scap retraction, Shld Flex to 90, and H ABD (A) Mod Plank shld taps (A) Serratus Punches (A) Nerve glides Median x10 10? hold (X) . Manual Therapy (42327): timed minutes 10, units 1 . Inf AND Post GH Mobs gr 2-3 loose pack x 7' Passive ROM all planes x3' STW to pec (X). 09/21/20 [id number] Provided and reviewed for progression. 09/16/20 [id number] Provided and reviewed for HEP. Provided today: education and equipment provided . D/C to HEP Foam roll -pec stretch 1? -butter fly x15 -snow aroldo x15 -scissors x15 -hugs x15 Resisted rows 2 x 10 Purple Resisted extension 2 x 10 purple Resisted Green -ER 2x10 -IR 2x10 -flex 2x10 -ext 2x10 Cane ER 5 hold x 10 . 'Scores and Scales' Signatures Electronically signed by : Nasreen Hutchins, PT; Sep 26 2020 1:00PM EST (Author) Normal [facility] PT Progress Noteon 1 PT Progress Note Therapy Diagnosis Assessed Impingement syndrome, shoulder, right (726.2) (M75.41) Shoulder pain, right (719.41) (M25.511) Plan Goals: Goals set and discussed today. 1. Independent HEP to allow for 50% reduction in max ADL C/C sx ( 8/10) 2-3wks 2. 0/10 night time sx to allow for uninterrupted sleep x1wk ( 7) 2-3wks 3. Survey score improvement from 22% to 10% (QDI) 3-4wks 4. ROM increase to allow for improved ADL dressing uppers, reaching (from 145 to 155 active elevation) 3-4wks 5. Strength increase to allow for improved ADL carrying, object handling (from gr4-/4 to gr 4+) 3-4wks Planned interventions include: cryotherapy, dry needling, education/instruction, electrical stimulation, home program, hot pack, kinesiotaping, manual therapy, self care/home management and therapeutic exercises. Frequency and duration: 3 time(s) a week, for 4 weeks, for 12 visits. Potential to achieve rehab goals is good Will continue to progress strength and mobility for improved ADLs. Progress with POC, as tolerated. Assessment Patient identified by name and date of . Patient was able to progress with strengthening this date she demonstrated fatigue after ball on wall with no increased pain Sx. She presented with increased ROM with PROM. Adult Risk Screening There are no spiritual/cultural practices/values/needs that are important to know Initial Fall Risk Screening: CHINMAY has not fallen in the last 6 months. CHINMAY does not have a fear of falling. She does not need assistance with sitting, standing or walking. Does not need assistance walking in her home. She does not need assistance in an unfamiliar setting. The patient is not using an assistive device. Pain Scale: On a scale of 0 to 10, the patient rates the pain at 2. Please identify location of pain: R shldr increase to 4/10 with some movements. Pain Quality: sharp. Insurance Insurance reviewed Visit number: 7 [employer] Evaluating therapist Naveen Estrada PT. M24.41; M92.720 Subjective Patient reports:. She reported decreased intensity with night pain. She reported 2/10 pain after treatment. Home program performing as directed: Yes. Precautions: Fall Risk: none Pertinent medical HX includes: osteopenia. Treatment Time in clinic started at 09:18 Time in clinic ended at 10:07 Total time in clinic is 49 minutes. Total timed code time is 45 minutes. Therapeutic exercise (29707): timed minutes 35, units 2 . UBE 3' fwd, 3? bwd Joya 3' flex Resisted rows 2 x 10 Purple Resisted extension 2 x 10 purple Resisted Green (P) -ER 2x10 -IR 2x10 -flex 2x10 -ext 2x10 Doorway stretch med/low 10 hold x 5 ea direction Ball on wall 2 x 10 (N) -flex/ext, lat -CW, CCW Cane ER 5 hold x 10 Nerve glides Median x10 10? hold Lat raises 2 x 10 0# (N) Delt raises 2 x 10 0# (N) D/C to HEP Foam roll -pec stretch 1? -butter fly x15 (P) -snow aroldo x15 (P) -scissors x15 (P) -hugs x15 (P) . Manual Therapy (54295): timed minutes 10, units 1 . Passive ROM all planes STW to pec. 09/21/20 [id number] Provided and reviewed for progression. 09/16/20 [id number] Provided and reviewed for HEP. Provided today: education and equipment provided . Reistsed Rows and Extension W/ theraloop and blue band. Seated scap retractions Doorway stretches med/low on R Cane ER in supine Demonstrated and verbalized understanding up exercises upon completion of instruction and review of handout. 'Scores and Scales' Signatures Electronically signed by : Mary Dyson [employer]ENTAL SUPERVISOR; Sep 23 2020 10:26AM EST (Author) Electronically signed by : Nasreen Hutchins PT; Sep 28 2020 10:03AM EST Normal [facility] PT Progress Noteon 1 PT Progress Note Therapy Diagnosis Assessed Impingement syndrome, shoulder, right (726.2) (M75.41) Shoulder pain, [...] object handling (from gr4-/4 to gr 4+) 3-4wks Planned interventions include: cryotherapy, dry needling, education/instruction, electrical stimulation, home program, hot pack, kinesiotaping, manual therapy, self care/home management and therapeutic exercises. Frequency and duration: 3 time(s) a week, for 4 weeks, for 12 visits. Potential to achieve rehab goals is good Will continue to progress strength and mobility for improved ADLs. Progress with POC, as tolerated. Assessment Patient identified by name and date of . Patient required cues to decrease with compensation with resisted ER. She was able to progress from walkouts to active movements with resisted ER. She required cues throughout treatment for proper form and technique. Adult Risk Screening There are no spiritual/cultural practices/values/needs that are important to know Initial Fall Risk Screening: CHINMAY has not fallen in the last 6 months. CHINMAY does not have a fear of falling. She does not need assistance with sitting, standing or walking. Does not need assistance walking in her home. She does not need assistance in an unfamiliar setting. The patient is not using an assistive device. Pain Scale: On a scale of 0 to 10, the patient rates the pain at 1. Please identify location of pain: R shldr increase to 4/10 with some movements. Pain Quality: sharp. Insurance Insurance reviewed Visit number: 6 [facility] Evaluating therapist Naveen Estrada PT. M75.41; M25.511 Subjective Patient reports:. Patient reported 2/10 pain after treatment. Home program performing as directed: Yes. Precautions: Fall Risk: none Pertinent medical HX includes: osteopenia. Treatment Time in clinic started at 09:15 Time in clinic ended at 10:00 Total time in clinic is 45 minutes. Total timed code time is 43 minutes. Therapeutic exercise (49747): timed minutes 35, units 2 . UBE 3' fwd, 3? bwd Joya 3' flex Resisted rows 2 x 10 Purple Resisted extension 2 x 10 purple Resisted Elmore (P from walk outs) -ER 2x10 -IR 2x10 -flex 2x10 -ext 2x10 Doorway stretch med/low 10 hold x 5 ea direction Cane ER 5 hold x 10 Foam roll -pec stretch 1? -butter fly x15 (P) -snow aroldo x15 (P) -scissors x15 (P) -hugs x15 (P) Nerve glides Median x10 10? hold . Manual Therapy (57314): timed minutes 8, units 1 . Passive ROM all planes 10'. 09/21/20 [id number] Provided and reviewed for progression. 09/16/20 [id number] Provided and reviewed for HEP. Provided today: education and equipment provided . Reistsed Rows and Extension W/ theraloop and blue band. Seated scap retractions Doorway stretches med/low on R Cane ER in supine Demonstrated and verbalized understanding up exercises upon completion of instruction and review of handout. 'Scores and Scales' Signatures Electronically signed by : Mary Dyson [employer] RENTAL SUPERVISOR; Sep 21 2020 10:20AM EST (Author) Electronically signed by : Nasreen Hutchins, PT; Sep 28 2020 10:02AM EST (Author) Normal [facility] PT Progress Noteon 1 PT Progress Note Therapy Diagnosis Assessed Impingement syndrome, shoulder, right (726.2) (M75.41) Shoulder pain, right (719.41) (M25.511) Plan Goals: Goals set and discussed today. 1. Independent HEP to allow for 50% reduction in max ADL C/C sx ( 8/10) 2-3wks 2. 0/10 night time sx to allow for uninterrupted sleep x1wk ( 7) 2-3wks 3. Survey score improvement from 22% to 10% (QDI) 3-4wks 4. ROM increase to allow for improved ADL dressing uppers, reaching (from 145 to 155 active elevation) 3-4wks 5. Strength increase to allow for improved ADL carrying, object handling (from gr4-/4 to gr 4+) 3-4wks Planned interventions include: cryotherapy, dry needling, education/instruction, electrical stimulation, home program, hot pack, kinesiotaping, manual therapy, self care/home management and therapeutic exercises. Frequency and duration: 3 time(s) a week, for 4 weeks, for 12 visits. Potential to achieve rehab goals is good Will continue to progress strength and mobility for improved ADLs. Progress with POC, as tolerated. Assessment Tactile and verbal cues needed for correct technique with resisted walkouts. Improved technique with resisted ER/IR walkouts afterward. Progressed resistance with resisted rows and extension for HEP and issued green band. Mild end range tightness with passive ER and Flexion. Response to treatment: no change in pain. Adult Risk Screening There are no spiritual/cultural practices/values/needs that are important to know Initial Fall Risk Screening: CHINMAY has not fallen in the last 6 months. CHINMAY does not have a fear of falling. She does not need assistance with sitting, standing or walking. Does not need assistance walking in her home. She does not need assistance in an unfamiliar setting. The patient is not using an assistive device. Pain Scale: On a scale of 0 to 10, the patient rates the pain at 1. Please identify location of pain: R shldr increase to 8/10 with some movements. Pain Quality: sharp. Insurance Insurance reviewed Visit number: 5 [facility] Evaluating therapist Naveen Estrada PT. M75.41; M25.511 Subjective Patient reports:. 1/10 pain upon arrival to PT today. States that she gets up every night for approx 1 hour and uses ice for pain relief. Notes difficulty with putting clothes was from washer to dryer, getting dressed, putting her coat d/t pain increase. Patient identified by name and date of . Home program performing as directed: Yes. Precautions: Fall Risk: none Pertinent medical HX includes: osteopenia. Treatment Time in clinic started at 11:31 Time in clinic ended at 12:156 Total time in clinic is 45 minutes. Total timed code time is 44 minutes. Therapeutic exercise (16647): timed minutes 34, units 2 . UBE 2' fwd/2 bwd' Joya 3' flex Doorway stretch med/low 10 hold x 5 ea direction Cane ER 5 hold x 10 Resisted rows 2 x 10 Purple Resisted extension 2 x 10 purple T-band walk outs Elmore -ER x10 2 steps -IR x10 2 steps -flex x10 2 steps -ext x10 2 steps Foam roll -pec stretch 1? -butter fly x10 -snow aroldo x10 -scissors x10 -hugs x10 Nerve glides Median x10 . Manual Therapy (17767): timed minutes 10, units 1 . Passive ROM all planes 10'. 09/16/20 [id number] Provided and reviewed for HEP. Provided today: education and equipment provided . Reistsed Rows and Extension W/ theraloop and blue band. Seated scap retractions Doorway stretches med/low on R Cane ER in supine Demonstrated and verbalized understanding up exercises upon completion of instruction and review of handout. 'Scores and Scales' Signatures Electronically signed by : Shawanda Perez AUTO RENTAL SUPERVISOR; Sep 19 2020 12:23PM EST (Author) Electronically signed by : Nasreen Hutchins, PT; Sep 28 2020 10:01AM EST Normal [facility] PT Progress Noteon PT Progress Note Therapy Diagnosis Assessed Impingement syndrome, shoulder, right (726.2) (M75.41) Shoulder pain, right (719.41) (M25.511) Plan Goals: Goals set and discussed today. 1. Independent HEP to allow for 50% reduction in max ADL C/C sx ( 8) 2-3wks 2. 0/10 night time sx to allow for uninterrupted sleep x1wk ( 02/15) 2-3wks 3. Survey score improvement from 22% to 10% (QDI) 3-4wks 4. ROM increase to allow for improved ADL dressing uppers, reaching (from 145 to 155 active elevation) 3-4wks 5. Strength increase to allow for improved ADL carrying, object handling (from gr4-/4 to gr 4+) 3-4wks Planned interventions include: cryotherapy, dry needling, education/instruction, electrical stimulation, home program, hot pack, kinesiotaping, manual therapy, self care/home management and therapeutic exercises. Frequency and duration: 3 time(s) a week, for 4 weeks, for 12 visits. Potential to achieve rehab goals is good Continue to progress shoulder strengthening as able and continue with ROM progression for improved function with daily tasks. Progress with POC, as tolerated. Assessment Patient identified by name and date of . Patient was able to progress with resistance. Reviewed sleeping positions with patient due to report of increased Sx during the night, she demonstrated good understanding. Added nerve glides this date and instructed for HEP. Adult Risk Screening There are no spiritual/cultural practices/values/needs that are important to know Initial Fall Risk Screening: CHINMAY has not fallen in the last 6 months. CHINMAY does not have a fear of falling. She does not need assistance with sitting, standing or walking. Does not need assistance walking in her home. She does not need assistance in an unfamiliar setting. The patient is not using an assistive device. Pain Scale: On a scale of 0 to 10, the patient rates the pain at 1. Please identify location of pain: R shldr increase to 8/10 with some movements. Pain Quality: sharp. Insurance Insurance reviewed [facility] Naveen Estrada PT. M75.41; M25.511 Subjective Patient reports:. Patient reported she was awoke in the middle of the night due to increased Sx, She reported.5/10 pain after treatment. Home program performing as directed: Yes. Precautions: Fall Risk: none Pertinent medical HX includes: osteopenia. Treatment Time in clinic started at 09:16 Time in clinic ended at 10:01 Total time in clinic is 45 minutes. Total timed code time is 43 minutes. Therapeutic exercise (61463): timed minutes 32, units 2 . UBE 2' fwd/2 bwd' Joya 3' flex Doorway stretch med/low 10 hold x 5 ea direction Cane ER 5 hold x 10 Resisted rows 2 x 10 (Purple) Resisted extension 2 x 10 purple T-band walk outs Elmore (P) -ER x10 2 steps -IR x10 2 steps -flex x10 2 steps -ext x10 2 steps Foam roll (N) -pec stretch 1? -butter fly x10 -snow aroldo x10 -scissors x10 -hugs x10 Nerve glides Median x10 . Manual Therapy (68261): timed minutes 11, units 1 . Passive ROM all planes 10'. 09/16/20 [id number] Provided and reviewed for HEP. Provided today: education and equipment provided . Reistsed Rows and Extension W/ theraloop and blue band. Seated scap retractions Doorway stretches med/low on R Cane ER in supine Demonstrated and verbalized understanding up exercises upon completion of instruction and review of handout. 'Scores and Scales' Signatures Electronically signed by : Mary Dyson AUTO RENTAL SUPERVISOR; Sep 16 2020 10:31AM EST (Author) Electronically signed by : Nasreen Hutchins PT; Sep 28 2020 10:01AM EST Normal [facility] PT Progress Noteon 02-03-202 1 PT Progress Note Therapy Diagnosis Assessed Impingement syndrome, shoulder, right (726.2) (M75.41) Shoulder pain, [...] object handling (from gr4-/4 to gr 4+) 3-4wks Planned interventions include: cryotherapy, dry needling, education/instruction, electrical stimulation, home program, hot pack, kinesiotaping, manual therapy, self care/home management and therapeutic exercises. Frequency and duration: 3 time(s) a week, for 4 weeks, for 12 visits. Potential to achieve rehab goals is good Continue to progress shoulder strengthening as able and continue with ROM progression for improved function with daily tasks. Progress with POC, as tolerated. Assessment Patient identified by name and date of . Patient required cues for form and hold times throughout treatment. She was able to progress with strengthening with addition of T-band walkouts without increase Sx. She presented with firm end feel and facial grimacing with ER. Adult Risk Screening There are no spiritual/cultural practices/values/needs that are important to know Initial Fall Risk Screening: CHINMAY has not fallen in the last 6 months. CHINMAY does not have a fear of falling. She does not need assistance with sitting, standing or walking. Does not need assistance walking in her home. She does not need assistance in an unfamiliar setting. The patient is not using an assistive device. Pain Scale: On a scale of 0 to 10, the patient rates the pain at 3. Please identify location of pain: R shldr increase to 8/10 with some movements. Pain Quality: sharp. Insurance Insurance reviewed Visit number: 3 [facility] Evaluating therapist Naveen Estrada PT. M75.41; M25.511 Subjective Patient reports:. Patient reported 1/10 pain after treatment. Home program performing as directed: Yes. Precautions: Fall Risk: none Pertinent medical HX includes: osteopenia. Treatment Time in clinic started at 08:30 Time in clinic ended at 09:15 Total time in clinic is 45 minutes. Total timed code time is 43 minutes. Therapeutic exercise (92121): timed minutes 32, units 2 . UBE 2' fwd/2 bwd' Joya 3' flex Doorway stretch med/low 10 hold x 5 ea direction Cane ER 5 hold x 10 Resisted rows 2 x 10 (Purple) Resisted extension 2 x 10 Blue T-band walk outs (N) -ER x10 2 steps -IR x10 2 steps -flex x10 2 steps -ext x10 2 steps HEP instruction with new handout and review 6' . Manual Therapy (53885): timed minutes 11, units 1 . Passive ROM all planes 10' (N). Provided today: education and equipment provided . Reistsed Rows and Extension W/ theraloop and blue band. Seated scap retractions Doorway stretches med/low on R Cane ER in supine Demonstrated and verbalized understanding up exercises upon completion of instruction and review of handout. 'Scores and Scales' Signatures Electronically signed by : Mary Dyson AUTO RENTAL SUPERVISOR; Sep 14 2020 9:29AM EST (Author) Electronically signed by : Nasreen Hutchins, PT; Sep 15 2020 10:06AM EST Normal [facility] PT Progress Noteon 1 PT Progress Note Therapy Diagnosis Assessed Impingement syndrome, shoulder, right (726.2) (M75.41) Shoulder pain, [...] object handling (from gr4-/4 to gr 4+) 3-4wks Planned interventions include: cryotherapy, dry needling, education/instruction, electrical stimulation, home program, hot pack, kinesiotaping, manual therapy, self care/home management and therapeutic exercises. Frequency and duration: 3 time(s) a week, for 4 weeks, for 12 visits. Potential to achieve rehab goals is good Continue to progress shoulder strengthening as able and continue with ROM progression for improved function with daily tasks. Progress with POC, as tolerated. Assessment Patient was able to complete all stretches and gentle shoulder strength addition. Mild end range tightness with passive ROM at end of session after completion of doorway stretches and strengthening. Issued new handout and band (see below) for progression of HEP. Response to treatment: no change in pain. Adult Risk Screening There are no spiritual/cultural practices/values/needs that are important to know Initial Fall Risk Screening: CHINMAY has not fallen in the last 6 months. CHINMAY does not have a fear of falling. She does not need assistance with sitting, standing or walking. Does not need assistance walking in her home. She does not need assistance in an unfamiliar setting. The patient is not using an assistive device. Pain Scale: On a scale of 0 to 10, the patient rates the pain at 8. Please identify location of pain: R shldr. Insurance Insurance reviewed Visit number: 2 [facility] Evaluating therapist Naveen Estrada PT. M75.41; M25.511 Subjective Patient reports:. States that she has 2/10 pain currently. Notes that reaching behind herself, taking her shirt off, and reaching into the dryer increases symptoms. States that sleeping is the worst d/t pain wakes her up at night. Patient identified by name and date of . Home program performing as directed: Yes. Treatment Time in clinic started at 9:15 Time in clinic ended at 10:02 Total time in clinic is 47 minutes. Total timed code time is 42 minutes. Therapeutic exercise (92095): timed minutes 32, units 2 . HEP instruction with new handout and review 6' (N) UBE 2' fwd/2 bwd' (N) Joya 3' flex (N) Doorway stretch med/low 10 hold x 5 ea direction (N) Cane ER 5 hold x 10 (N) Resisted rows 2 x 10 (Purple) (N) Resisted extension 2 x 10 Blue (N) . Manual Therapy (92208): timed minutes , units . Passive ROM all planes 10' (N). Provided today: education and equipment provided . Reistsed Rows and Extension W/ theraloop and blue band. Seated scap retractions Doorway stretches med/low on R Cane ER in supine Demonstrated and verbalized understanding up exercises upon completion of instruction and review of handout. 'Scores and Scales' Signatures Electronically signed by : Shawanda Perez AUTO RENTAL SUPERVISOR; Sep 09 2020 10:10AM EST (Author) Electronically signed by : Nasreen Hutchins, PT; Sep 11 2020 7:27PM EST Normal [facility] PT Initial Evaluationon 08-13 PT Initial Evaluation Therapy Diagnosis Assessed Impingement syndrome, shoulder, right (726.2) (M75.41) Shoulder pain, right (719.41) (M25.511) Plan of Care Goals: Goals set and discussed today. 1. Independent HEP to allow for 50% reduction in max ADL C/C sx ( 03/21) 2-3wks 2. 0/10 night time sx to allow for uninterrupted sleep x1wk ( 02/15) 2-3wks 3. Survey score improvement from 22% to 10% (QDI) 3-4wks 4. ROM increase to allow for improved ADL dressing uppers, reaching (from 145 to 155 active elevation) 3-4wks 5. Strength increase to allow for improved ADL carrying, object handling (from gr4-/4 to gr 4+) 3-4wks Planned interventions include: cryotherapy, dry needling, education/instruction, electrical stimulation, home program, hot pack, kinesiotaping, manual therapy, self care/home management and therapeutic exercises. Frequency and duration: 3 time(s) a week, for 4 weeks, for 12 visits. Potential to achieve rehab goals is good Plan of care was developed with input and agreement by the patient. Assessment Insidious onset of R shldr pain with sleeping 4 mths ago. Neg films. She particularly notes sx with reaching back behind. Apparent biceps tendon irritation and + impingement. Continue with ROM/PRE as colin. Clinical Presentation: Stable and/or uncomplicated characteristics. Level of Complexity: low Problem List: activity limitations, ADLs/IADLs/self care skills, decreased functional level, decreased knowledge of HEP, decreased knowledge of precautions, pain, range of motion/joint mobility and strength. Reason For Visit Initial Evaluation . R shldr impingement. Referred by: Dorinda Adult Risk Screening There are no spiritual/cultural practices/values/needs that are important to know Initial Fall Risk Screening: CHINMAY has not fallen in the last 6 months. CHINMAY does not have a fear of falling. She does not need assistance with sitting, standing or walking. Does not need assistance walking in her home. She does not need assistance in an unfamiliar setting. The patient is not using an assistive device. Pain Scale: On a scale of 0 to 10, the patient rates the pain at 8. Please identify location of pain: R shldr. Insurance Insurance reviewed Visit number: 1 [facility] Evaluating therapist Naveen Estrada PT. M75.41; M25.511 Subjective Current Episode of Functional Impairment and/or Pain Date of onset: Mechanism of Injury:. woke up with sx. Medical Screening: Reviewed medical history form with patient and medical screening assessed. Current Medical Management:. tried Dr exercises; negative films. Precautions: Fall Risk: none Pertinent medical HX includes: osteopenia. Functional Assessment Prior level of function: PAINFUL, DIFFICULT, OR ALTERED ADL (marked with an xx) sleep--XX sitting-- sit to standing transfers-- car transfers-- standing-- walking-- carrying-- stairs-- dressing lowers-- driving-- dressing uppers--XX reaching----XX handling objects--XX other-- . Objective Ortho Observation Palpation: R bicipital groove area tenderness. ROM / Joint Mobility (Range of Motion in degrees) Shoulder: (Fabian: P! Denotes Pain with Movement, * Indicates Dale Resistant Otherwise Measurements are in Supine) Flexion: R Active 145, R Passive 145, L Active 160, L Passive 160. External Rotation (ER) ABDuction: R Passive 70 deg. ER, in 30 deg. ABD, L Passive 90 deg. ER, in 30 deg. ABD Internal Rotation (IR) ABDuction: R Passive 65 deg. IR, in 30 deg. ABD, L Passive 80 deg. IR, in 30 deg. ABD. Anterior R shldr sx with all endrange PROM. Strength Shoulders: (Fabian: P! Denotes Pain with Movement) Shoulder abduction 4/5 on right, pain, 5/5 on left. External rotation at 4+/5 on right, 5/5 on left. Internal rotation at 4-/5 on right, pain, 5/5 on left. Anterior shldr discomfort with MMT. Treatment Time in clinic started at 10:20 am Time in clinic ended at 11:15 am Total time in clinic is 55 minutes. Treatment Performed Today:. PROM all dir pulleys 2'. Evaluation Code: 83254 PT Eval: Low Complexity, 40 min(s). Timed: 51057 Manual Therapy, 10 min(s), 1 unit(s). Contacts for Physician Signature First attempt date: 09/07/20. Referring Provider Signature: I am in agreement with the above plan of care. Referring Provider Signature __, Date/Time Signatures Electronically signed by : Chase Estrada, PT; Sep 07 2020 11:20AM EST (Author) Normal [employer] ECG 12-LEADon 09-22-2019 Atrial Rate [facility] P [place] [facility] P-R Interval [facility] Q-T Interval [facility] Q-T Interval (corrected) [facility] QRS Duration [facility] QTC Calculation (Bezet) [facility] R [place] [facility] T [place] [facility] Ventricular Rate [facility] Alcohol, Medicalon 0 Ethanol [Mass/Vol] mg/dL <10.00 mg/dL [facility] Comment on above: Alcohol cutoff: <10. 00 mg/dL = None Detected Interpretation and review of laboratory results Normal [facility] CBC WITH AUTO DIFFERENTIALon 09-06-2019 Basophils (Bld) [#/Vol] 0.04 10*3/uL [facility] Basophils/100 WBC (Bld) 0.6 % [facility] Eosinophils (Bld) [#/Vol] 0.10 10*3/uL [facility] Eosinophils/100 WBC (Bld) 1.5 % [facility] Erythrocyte distribution width (RBC) [Entitic vol] 13.0 % 11.6 - 14.8 % [facility] Hematocrit (Bld) [Volume fraction] 42.4 % 36 - 46 % [facility] Hemoglobin (Bld) [Mass/Vol] 14.0 g/dL 12 - 16 g/dL [facility] Immature granulocytes (Bld) [#/Vol] 0.02 10*3/uL [facility] Immature granulocytes/100 WBC (Bld) 0.30 % [facility] Comment on above: The IG parameter is the percentage of metamyelocytes, myelocytes, and promyelocytes. Lymphocytes (Bld) [#/Vol] 1.89 10*3/uL [facility] Lymphocytes/100 WBC (Bld) 28.8 % [facility] MCH (RBC) [Entitic mass] 30.1 pg 26 - 34 pg [facility] MCHC (RBC) [Mass/Vol] 33.0 g/dL 31 - 37 g/dL [facility] MCV (RBC) [Entitic vol] 91.2 fL 80 - 100 fL [facility] Monocytes (Bld) [#/Vol] 0.52 10*3/uL [facility] Monocytes/100 WBC (Bld) 7.9 % [facility] Neutrophils (Bld) [#/Vol] 3.99 10*3/uL [facility] Neutrophils/100 WBC (Bld) 60.9 % [facility] Nucleated RBC (Bld) [#/Vol] 0.00 10*3/uL [facility] Nucleated RBC/100 WBC (Bld) [Ratio] 0.0 % [facility] Platelet mean volume (Bld) [Entitic vol] 10.3 fL 9 - 15.5 fL [facility] Platelets (Bld) [#/Vol] 258 10*3/uL [facility] RBC (Bld) [#/Vol] 4.65 10*6/uL [facility] WBC (Bld) [#/Vol] 6.56 10*3/uL [facility] Chem on 09-06-2019 Anion gap [Moles/Vol] 13 mmol/L 10 - 2 0 mmol/L [facility] Chloride [Moles/Vol] 104 mmol/L 98 - 10 8 mmol/L [facility] Creatinine [Mass/Vol] 0.80 mg/dL 0.6 - 1.2 mg/dL [facility] GFR/1.73 sq M predicted among non-blacks MDRD (S/P/Bld) [Vol rate/Area] The eGFR should be used for monitoring renal function only and not for medication dosing. [facility] GFR/1.73 sq M.predicted CKD-EPI (S/P/Bld) [Vol rate/Area] 76 >=60 mL/min/1.73 m2 [facility] Glucose [Mass/Vol] 108 mg/dL High 65 - 99 mg/dL [facility] HCO3 [Moles/Vol] 26 mmol/L 21 - 32 mmol/L [facility] Interpretation and review of laboratory results Abnormal [facility] Potassium [Moles/Vol] 3.4 mmol/L Low 3.5 - 5.1 mmol/L [facility] Sodium [Moles/Vol] 140 mmol/L 135 - 145 mmol/L [facility] Urea nitrogen [Mass/Vol] 11 mg/dL 8 - 25 mg/dL [facility] Urea nitrogen/Creatinine [Mass ratio] 13.8 mg/mg [facility] D-DIMER, QUANTITATIVEon 08-13 Fibrin D-dimer FEU (PPP) [Mass/Vol] 0.43 0.27 - 0.49 mcg/mL FEU [facility] Interpretation and review of laboratory results Normal [facility] A D-dimer concentrat ion of <0.5 micrograms per milliliter FEU is considered a low probability for pulmonary embolus (PE) and deep venous thrombosis (DVT). Results of this test should always be interpreted in conjunction with the patient's medical history,clinical presentation, and other findings. Clinical diagnosis should not be based on the results of the D-dimer alone. [facility] DRUGS OF ABUSE SCREEN, URINE on 09-06-2019 Amphetamines Ql (U) None Detected None Detected [facility] Comment on above: Urine Amphetamine Cu toff: < 1000 ng/mL = None Detected Barbiturates Screen Ql (U) None Detected None Detected [facility] Comment on above: Urine Barbiturates C utoff: < 200 ng/mL = None Detected Benzodiazepines Ql (U) None Detected None Detected [facility] Comment on above: Urine Benzodiazepine Cutoff: < 200 ng/mL = None Detected Cannabinoids Screen Ql (U) None Detected None Detected [facility] Comment on above: Urine Cannabinoids C utoff: < 50 ng/mL = None Detected Cocaine Ql (U) None Detected None Detected [facility] Comment on above: Urine Cocaine Cutoff : < 300 ng/mL = None Detected Interpretation and review of laboratory results Normal [facility] Methadone Screen Ql (U) None Detected None Detected [facility] Comment on above: Urine Methadone Cuto ff: < 300 ng/mL = None Detected Opiates Screen Ql (U) None Detected None Detected [facility] Comment on above: Urine Opiates Cutoff : < 300 ng/mL = None Detected Oxycodone Ql (U) None Detected None Detected [facility] Comment on above: Urine Oxycodone Cuto ff: < 100 ng/mL = None Detected Screen results shoul d be used for treatment purposes only. [facility] Hepatic Function Panel (LFT) on 09-06-2019 Albumin [Mass/Vol] 4.1 g/dL 3.2 - 5.2 g/dL [facility] ALP [Catalytic activity/Vol] 82 U/L 40 - 150 U/L [facility] ALT [Catalytic activity/Vol] 22 U/L 14 - 65 U/L [facility] AST [Catalytic activity/Vol] 15 U/L 0 - 45 U/L [facility] Bilirubin [Mass/Vol] 0.4 mg/dL 0 - 1.3 mg/dL [facility] Bilirubin.conjugated [Mass/Vol] mg/dL 0 - 0.4 mg/dL [facility] Protein [Mass/Vol] 7.9 g/dL 6 - 8 g/dL [facility] alth Lipaseon 09-06-2019 Lipase [Catalytic activity/Vol] 186 U/L 73 - 393 U/L [facility] Otheron 09-06-2019 Interpretation and review of laboratory results Normal [facility] TROPONINon 09-06-2019 Troponin I.cardiac [Mass/Vol] Normal [facility] Troponin I.cardiac [Mass/Vol] ng/mL <=45 ng/L [facility] TSH with Reflex Free T4on TSH Qn 0.86 m[IU]/L [facility] URINALYSISon 09-06-2019 Bacteria Auto Ql (U) None Seen None Se en /hpf [facility] Bilirubin Ql (U) Negative Negative [facility] Clarity Refractometry automated (U) Clear Clear [facility] Color (U) Yellow Colorless, Yellow [facility] Glucose Auto test strip (U) [Mass/Vol] Negative Negative mg/dL [facility] Hemoglobin Auto test strip Ql (U) Negative Negative [facility] Hyaline casts Auto (Urine sed) [#/Area] 3-5 Abnormal 0 - 2 /lpf [facility] Interpretation and review of laboratory results Abnormal [facility] Ketones (U) [Mass/Vol] Negative Negat tiffanie mg/dL [facility] Leukocyte esterase Auto test strip Ql (U) Negative Negative [facility] h Mucus Auto (Urine sed) [#/Area] Many Abnormal None Seen, Rare /lpf [facility] Nitrite Auto test strip Ql (U) Negative Negative [facility] pH (U) 5.0 [pH] [facility] Protein (U) [Mass/Vol] Negative Negat tiffanie mg/dL [facility] RBC Auto (Urine sed) [#/Area] <1 [facility] Specific gravity (U) [Rel density] 1.009 [facility] Urobilinogen (U) [Mass/Vol] <2.0 <2.0 mg/dL [facility] WBC Auto (Urine sed) [#/Area] 2 [facility] Microscopic examinat ion is performed on all urinalysis samples and only positive findings are reported. The test for blood on the chemical analytic portion of urinalysis may also be positive due to hemoglobinuria and myoglobinuria and if red blood cells are present they are quantified by microscopic examination. [facility] XR Chest 1 Viewon 09-06-2019 Interface, Rad In Fu ji Speechq - 09/06/2019 6:28 PM EST EXAMINATION: XR CHEST PA/AP 09/06/2019 5:06 pm HISTORY: ORDERING SYSTEM PROVIDED HISTORY: palpitations, TECHNOLOGIST PROVIDED HISTORY: Illness/Other Reason for exam: PALPITATIONS, TACHYCADIA, DISCOMFOT ON LT SIDE CHEST/UPPER THORAX Cancer History: U Surgery, RadiationHistory: U Encounter Type: Initial Additional signs and symptoms: NA ORDERING SYSTEM PROVIDED DIAGNOSIS CODES: COMPARISON: July 10, 2015. FINDINGS: Single portable AP upright view of the chest demonstrates the lungs to be clear of consolidations and no effusions or evidence of interstitial edema is seen. Linear scarring located medially within the left lung base. The heart size is at the upper limits of normal and the osseous structures appear intact. IMPRESSION: 1. No acute findings. DPR/mjr Workstation ID: [id number] [facility] 1. No acute findings . DPR/mjr Workstation ID: [id number] [facility] EXAMINATION: XR CHES T PA/AP 09/06/2019 5:06 pm HISTORY: ORDERING SYSTEM PROVIDED HISTORY: palpitations, TECHNOLOGIST PROVIDED HISTORY: Illness/Other Reason for exam: PALPITATIONS, TACHYCADIA, DISCOMFOT ON LT SIDE CHEST/UPPER THORAX Cancer History: U Surgery, RadiationHistory: U Encounter Type: Initial Additional signs and symptoms: NA ORDERING SYSTEM PROVIDED DIAGNOSIS CODES: COMPARISON: July 10, 2015. FINDINGS: Single portable AP upright view of the chest demonstrates the lungs to be clear of consolidations and no effusions or evidence of interstitial edema is seen. Linear scarring located medially within the left lung base. The heart size is at the upper limits of normal and the osseous structures appear intact. [facility] MA Mamm Screen w/CAD if perf ormed bilaton 04-16-2019 MA Mamm Screen w/CAD if performed bilat Exam Date/Time: 04/16/2019 09:16 EDT Reason for Exam: SCREENING Report STUDY: Digital mammography screening; 04/16/2019 9:16 am ACCESSION NUMBER(S): [id number] ORDERING CLINICIAN: Dipak Seth INDICATION: Screening. COMPARISON: Comparison is made to prior digital mammograms dated 04/09/2018 and 04/05/2017 FINDINGS: CC and MLO 2D digital mammographic images of the bilateral breasts were obtained. The breast tissue is heterogeneously dense, which may obscure small masses. No discrete mass or focal asymmetry is identified. No suspicious microcalcifications or foci of architectural distortion are seen. There has been no significant change. This study was interpreted with CAD. IMPRESSION: No mammographic evidence of malignancy. BI-RADS CATEGORY: Category: 1 - Negative. Recommendation: Normal Interval Follow-up, Over Age 40. Recall Interval: 12 Months. Breast Density: Heterogeneous. FINAL REPORT Dictated: 04/16/2019 3:08 pm Jose Patterson MD Signed (Electronic Signature): 04/16/2019 3:08 pm Signed by: Jose Patterson MD Technologist: Assessment: BI-RADS Category 1-Negative Recommendation: Normal interval follow-up Normal [facility] US Extremity Non-Vascular [facility] 03-06-2019 US Extremity Non-Vascular Right Exam Date/Time: 03/05/2019 15:20 EDT Reason for Exam: RIGHT AXILLAY LYMPHADENOPATHY Report STUDY: US Extremity Non-Vascular Right; 03/05/2019 3:20 pm INDICATION: RIGHT AXILLARY LYMPHADENOPATHY. COMPARISON: None. ACCESSION NUMBER(S): [id number] ORDERING CLINICIAN: Ernestina Ayoub TECHNIQUE: Multiple grayscale ultrasonographic images were obtained through the right axilla in the region of palpable abnormality. FINDINGS: There is no ultrasonographic mass or asymmetry identified in the region of palpable abnormality. IMPRESSION: No ultrasonographic evidence of malignancy. FINAL REPORT Dictated: 03/06/2019 10:11 am Jose Patterson MD Signed (Electronic Signature): 03/06/2019 10:11 am Signed by: Jose Patterson MD Technologist: ESTEBAN [facility] XR Wrist 3+ Views Righton XR Wrist 3+ Views Right Exam Date/Time: 11/25/2018 09:49 EDT Reason for Exam: right wrist pain Report STUDY: XR Wrist 3+ Views Right; 11/25/2018 9:49 am INDICATION: right wrist pain. COMPARISON: None. ACCESSION NUMBER(S): [id number] ORDERING CLINICIAN: Dipak Seth FINDINGS: There is no acute fracture or dislocation. The carpal bones are normal alignment. There is normal bony mineralization. There is no soft tissue swelling or joint effusion. IMPRESSION: No acute fracture. FINAL REPORT Dictated: 11/26/2018 11:46 am Jaylon Mercer MD Signed (Electronic Signature): 11/26/2018 11:46 am Signed by: Jaylon Mercer MD Technologist: STANISLAW [facility] Vital Signs Date Time Vital Sign Value Performing Clinician Facility 12-03-2024 14:37-0400 Body height 160 cm Isabella Dixon MD Work Phone: [facility] 12-03-2024 14:37-0400 Body mass index (BMI) [Ratio] 24.53 kg/m2 Isabella Dixon MD Work Phone: [facility] 12-03-2024 14:37-0400 Body weight 62.82 kg Isabella Dixon MD Work Phone: [facility] 12-03-2024 14:37-0400 Diastolic blood pressure 65 mm[Hg] Isabella Dixon MD Work Phone: [facility] 12-03-2024 14:37-0400 Heart rate 69 /min Isabella Dixon MD Work Phone: [facility] 12-03-2024 14:37-0400 SaO2% (BldA) [Mass fraction] 97 % Isabella Dixon MD Work Phone: [facility] 12-03-2024 14:37-0400 Systolic blood pressure 129 mm[Hg] Isabella Dixon MD Work Phone: [facility] 07-31-2024 14:03-0500 Diastolic blood pressure 69 mm[Hg] Jason Vidales MD Work Phone: [facility] 07-31-2024 14:03-0500 Heart rate 57 /min Jason Vidales MD Work Phone: [facility] 07-31-2024 14:03-0500 SaO2% (BldA) [Mass fraction] 96 % Jason Vidales MD Work Phone: [facility] 07-31-2024 14:03-0500 Systolic blood pressure 119 mm[Hg] Jason Vidales MD Work Phone: [facility] 07-31-2024 11:55-0500 Body temperature 97.9 [degF] Jason Vidales MD Work Phone: [facility] 07-31-2024 11:55-0500 Respiratory rate 16 /min Jason Vidales MD Work Phone: [facility] 07-30-2024 18:29-0500 Body height 160 cm Jason Vidales MD Work Phone: [facility] 07-30-2024 18:29-0500 Body mass index (BMI) [Ratio] 24.45 kg/m2 Jason Vidales MD Work Phone: [facility] 07-30-2024 18:29-0500 Body weight 62.6 kg Jason Vidales MD Work Phone: [facility] 01-24-2022 10:08-0400 Body height 160 cm Dipak Seth Other Phone: [facility] 01-24-2022 10:08-0400 Body temperature 97.88 [degF] Dipak Seth Other Phone: [facility] 01-24-2022 10:08-0400 Diastolic blood pressure 61 mm[Hg] Dipak Seth Other Phone: [facility] 01-24-2022 10:08-0400 Heart rate 73 /min Dipak Mckeonk Other Phone: [facility] 01-24-2022 10:08-0400 Respiratory rate 16 /min Dipak Seth Other Phone: [facility] 01-24-2022 10:08-0400 SaO2% (BldA) [Mass fraction] 98 % Dipak Seth Other Phone: [facility] 01-24-2022 10:08-0400 Systolic blood pressure 117 mm[Hg] Dipak Seth Other Phone: [facility] 10-28-2021 10:40-0400 Body height 160 cm Dipak Seth Other Phone: [facility] 10-28-2021 10:40-0400 Body temperature 98.78 [degF] Dipak Seth Other Phone: [facility] 10-28-2021 10:40-0400 Diastolic blood pressure 71 mm[Hg] Dipak Seth Other Phone: [facility] 10-28-2021 10:40-0400 Heart rate 84 /min Dipak Seth Other Phone: [facility] 10-28-2021 10:40-0400 Respiratory rate 16 /min Dipak Seth Other Phone: [facility] 10-28-2021 10:40-0400 SaO2% (BldA) [Mass fraction] 96 % Dipak Seth Other Phone: [facility] 10-28-2021 10:40-0400 Systolic blood pressure 108 mm[Hg] Dipak Seth Other Phone: [facility] 06-08-2021 13:46-0400 Body height 160 cm Dipak Seth Other Phone: [facility] 06-08-2021 13:46-0400 Body temperature 98.06 [degF] Dipak Seth Other Phone: [facility] 06-08-2021 13:46-0400 Diastolic blood pressure 71 mm[Hg] Dipak Seth Other Phone: [facility] 06-08-2021 13:46-0400 Heart rate 75 /min Dipak Seth Other Phone: [facility] 06-08-2021 13:46-0400 Respiratory rate 14 /min Dipak Seth Other Phone: [facility] 06-08-2021 13:46-0400 SaO2% (BldA) [Mass fraction] 98 % Dipak Seth Other Phone: [facility] 06-08-2021 13:46-0400 Systolic blood pressure 129 mm[Hg] Dipak Seth Other Phone: [facility] 09-22-2019 08:57-0500 BMI (Body Mass Index) 23.72 kg/m2 Kimo Vasquez [facility] 09-22-2019 08:57-0500 Body weight 60.74 kg Kimo Vasquez [facility] 09-22-2019 08:57-0500 BP Diastolic 66 mm[Hg] Kimo Vasquez [facility] 09-22-2019 08:57-0500 BP Systolic 106 mm[Hg] Kimo Vasquez [facility] 09-22-2019 08:57-0500 Height 160 cm Kimo Aikenhmy [facility] 09-22-2019 08:57-0500 Pulse (Heart Rate) 70 /min Kimo Vasquez [facility] 09-22-2019 08:57-0500 Pulse Oximetry 96 % Kimo Vasquez [facility] 09-06-2019 19:00-0500 BP Diastolic 60 mm[Hg] Yisel Josue [facility] 09-06-2019 19:00-0500 BP Systolic 129 mm[Hg] [facility] 09-06-2019 19:00-0500 Pulse (Heart Rate) 73 /min [facility] 09-06-2019 19:00-0500 Pulse Oximetry 98 % [facility] 09-06-2019 16:51-0500 BMI (Body Mass Index) 23.56 kg/m2 [facility] 09-06-2019 16:51-0500 Body Temperature 97.59 [degF] [facility] 09-06-2019 16:51-0500 Body weight 60.33 kg [facility] 09-06-2019 16:51-0500 Height 160 cm [facility] 09-06-2019 16:51-0500 Respiratory Rate 16 /min [facility] Encounters Encounter Date Encounter Type Care Provider Facility Start: 01-13-2025 ambulatory Trang Carr Facility:[facility] Start: 01-12-2025 End: 01-12-2025 ambulatory MOLLY KIRBY Facility:[facility] Start: 12-04-2024 End: 12-04-2024 Refill Kit Wright MA [facility] Comment on above: Medication Refill Start: 12-03-2024 End: 12-03-2024 Office outpatient new 45 minutes Darby Velasco CNP Work Phone: [facility] Comment on above: Palpitations (Primar y Dx); Chest pain, unspecified type Start: 12-03-2024 End: 12-04-2024 Refill Nita Null RN [facility] Comment on above: Medication Refill Start: 11-28-2024 End: 11-28-2024 Emergency department patient visit TRANG CARR [facility] Start: 11-24-2024 End: 11-24-2024 ambulatory Trang Carr MD Work Phone: [facility] Work Phone: Start: 11-24-2024 End: 11-24-2024 Patient encounter procedure Aroldo HELLER -[place] [place] [facility] Start: 11-24-2024 End: 11-24-2024 ambulatory Chalon Lilly Facility:[facility] Start: 07-30-2024 End: 07-31-2024 Emergency department patient visit Yisel Josue MD Work Phone: [facility] Start: 07-30-2024 End: 07-31-2024 ambulatory JERE MADAI [facility] Start: 06-19-2024 End: 06-19-2024 ambulatory Chalon Lilly Facility:[facility] Start: 06-11-2024 End: 06-11-2024 ambulatory Chalon Lilly Facility:[facility] Start: 05-07-2024 End: 05-11-2024 ambulatory Chalon Lilly Facility:[facility] Start: 04-08-2024 End: 04-08-2024 ambulatory Chalon Lilly Facility:[facility] Start: 04-01-2024 End: 04-01-2024 ambulatory Chalon Lilly Facility:[facility] Start: 03-23-2024 End: 03-23-2024 ambulatory MOLLY Valerie SHAHER Facility:[facility] Start: 03-23-2024 End: 03-23-2024 Patient encounter procedure Molly Kirby OD Work Phone: Optometry Comment on above: Dry eyes (Primary Dx ) Start: 01-20-2024 End: 01-20-2024 ambulatory MOLLY Valerie ROBBINSRIDER Facility:[facility] Start: 01-20-2024 End: 01-20-2024 Patient encounter procedure Molly Kirby OD Work Phone: Optometry Comment on above: Subconjunctival hemo rrhage of left eye (Primary Dx) Start: 01-13-2024 End: 01-13-2024 ambulatory Chalon Lilly Facility:[facility] Start: 11-25-2023 End: 11-25-2023 [facility] Start: 09-26-2023 End: 09-26-2023 ambulatory [facility] Work Phone: Start: 09-26-2023 End: 09-26-2023 [facility] Start: 01-25-2023 End: 01-25-2023 ambulatory [facility] Work Phone: Start: 01-25-2023 End: 01-25-2023 Patient encounter procedure [facility] Start: 12-12-[address] Sammie Hilario Facility:[id number] Start: 11-23-2022 ambulatory Ms. 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 Dipak Seth Facility:[id number] Start: 01-24-[address] Dipak Seth Facility:[id number] Start: 01-24-2022 End: 01-24-2022 Emergency department patient visit Lucinda Vizcarra [facility] 01 Start: 10-28-2021 End: 10-28-2021 Emergency department patient visit Lucinda Vizcarra [facility] 01 Start: 06-08-2021 End: 06-08-2021 Emergency department patient visit Lucinda Vizcarra [facility] Start: 10-31-2020 Patient encounter procedure [facility] Work Phone: Start: 10-26-2020 Patient encounter procedure [facility] Work Phone: Start: 10-19-2020 Patient encounter procedure [facility] Work Phone: Start: 10-14-2020 Patient encounter procedure [facility] Work Phone: Start: 10-05-2020 Patient encounter procedure [facility] Work Phone: Start: 10-03-2020 Patient encounter procedure [facility] Work Phone: Start: 09-30-2020 Patient encounter procedure [facility] Work Phone: Start: 09-28-2020 Patient encounter procedure [facility] Work Phone: Start: 09-26-2020 Patient encounter procedure [facility] Work Phone: Start: 09-23-2020 Patient encounter procedure [facility] Work Phone: Start: 09-21-2020 Patient encounter procedure [facility] Work Phone: Start: 09-19-2020 Patient encounter procedure [facility] Work Phone: Start: 09-16-2020 Patient encounter procedure [facility] Work Phone: Start: 09-14-2020 Patient encounter procedure [facility] Work Phone: Start: 09-09-2020 Patient encounter procedure [facility] Work Phone: Start: 09-07-2020 Patient encounter procedure [facility] Work Phone: Start: 09-22-2019 End: 09-22-2019 Office outpatient new 45 minutes Yisel Josue Work Phone: [facility] Comment on above: Cardiac arrhythmia, unspecified cardiac arrhythmia type (Primary Dx); Palpitations; Chest discomfort Start: 09-11-2019 End: 09-11-2019 Subsequent hospital visit by physician Dipak Seth Work Phone: [facility] Comment on above: Tachycardia Start: 09-06-2019 End: 09-06-2019 Emergency department patient visit Yisel Josue Work Phone: [facility] Comment on above: Palpitations (Primar y Dx); Hypokalemia Procedures Date Procedure Procedure Detail Performing Clinician Start: 07-31-2024 Cta hrt cornry art/b ypass grfts contrst 3d post Darby Velasco [employer] Work Phone: Start: 07-31-2024 Assay of troponin quantitative Abebe Lincoln [employer]TER Work Phone: Start: 07-31-2024 Lipid panel Darby Velasco [employer]MENT [employer]TER Work Phone: Start: 07-30-2024 Assay of troponin quantitative Abebemarleen Lincoln [employer]B AP[employer]MENT SETTER Work Phone: Start: 07-30-2024 Electrocardiogram Yisel Josue MD Work Phone: Start: 07-30-2024 Radiologic exam ches t single view Yisel Josue MD Work Phone: Start: 07-30-2024 LIGHT BLUE TOP Yisel Josue MD Work Phone: Start: 07-30-2024 RAINBOW DRAW Yisel Josue MD Work Phone: Start: 07-30-2024 End: 07-30-2024 Comprehensive metabolic panel Yisel Josue MD Work Phone: Start: 07-30-2024 Ecg routine ecg w/le ast 12 lds w/i&r Yisel Josue MD Work Phone: Start: 12-12-2022 Mammography Isabella Dixon MD Work Phone: Start: 09-22-2019 12 lead ECG Kimo Crespo my Work Phone: Start: 09-06-2019 Drugs of abuse urine screening test Yisel Josue Work Phone: Start: 09-06-2019 Urinalysis Yisel Josue Work Phone: Start: 09-06-2019 Radiologic exam ches t single view Yisel Josue Work Phone: Start: 09-06-2019 Basic metabolic 1998 panel - Serum or Plasma Yisel Josue Work Phone: Start: 09-06-2019 Complete blood count with white cell differential, automated Yisel Jsoue Work Phone: Start: 09-06-2019 Complete blood count with white cell differential, manual Yisel Josue Work Phone: Start: 09-06-2019 D-dimer assay, quantitative Yisel Josue Work Phone: Start: 09-06-2019 Ethanol [Mass/volume ] in Serum or Plasma Yisel Josue Work Phone: Start: 09-06-2019 Hepatic function 200 0 panel - Serum or Plasma Yisel Josue Work Phone: Start: 09-06-2019 Lipase [Enzymatic activity/volume] in Serum or Plasma Yisel Josue Work Phone: Start: 09-06-2019 Thyrotropin [Units/v olume] in Serum or Plasma by Detection limit <= 0.005 mIU/L Yisel Josue Work Phone: Start: 09-06-2019 Troponin measurement Ze pamela Josue Work Phone: Start: 02-17-2015 Mammography Dipak otero Plan of Treatment Date Care Activity Detail Author Start: 10-02-2033 Tetanus vaccination Tetanus: Every 10yrs [facility] Start: 10-02-2033 Urine microalbumin profile DTaP,Tdap,Td Vaccine (2 - Td or Tdap) [facility] Start: 02-22-2026 Diabetes Screening Diabetes Screening [facility] Start: 04-12-2025 Influenza vaccination Influenza Vaccine (Season Ended) [facility] Start: 04-12-2024 COVID-19 Vaccine ( season) COVID-19 Vaccine ( season) [facility] Start: 04-12-2024 Influenza vaccination [facility] Start: 01-02-2024 Covid-19 Vaccine ( season) Covid-19 Vaccine () [facility] Start: 12-13-2023 Screening for malignant neoplasm of breast [facility] Start: 08-12-2023 Advance Directive Discussion Advance Directive Discussion [facility] Start: 08-12-2023 Behavioral Health Screening Behavioral Health Screening [facility] Start: 08-12-2022 ADVANCE DIRECTIVE DISCUSSION ADVANCE DIRECTIVE DISCUSSION [facility] Start: 08-12-2022 DEPRESSION ASSESSMENT DEPRESSION ASSESSMENT [facility] Start: 05-17-2021 Pneumococcal Vaccine: 65+ (2 of 2 - PPSV23 or PCV20) Pneumococcal Vaccine: 65+ (2 of 2 - PPSV23 or PCV20) [facility] Start: 07-12-2020 Pneumococcal Vaccine: Age 50+ (2 of 2 - PPSV23) Pneumococcal Vaccine: Age 50+ (2 of 2 - PPSV23) [facility] Start: 09-22-2019 End: 09-22-2019 Office Visit 09/22/2019 Office Visit Cardiology Yisel Josue MD [address] [place] [address] [phone] Kimo Vasquez MD [address] [place] [address] [phone] [facility] Start: 04-12-2019 Influenza vaccination given SEQUENTIAL INFLUENZA VACCINE (#1) [facility] Start: 02-18-2016 Screening mammography Mammogram [facility] Start: 12-03-2015 BONE DENSITY BONE DENSITY [facility] Start: 12-03-2015 Fall risk assessment Falls Risk Assessment [facility] Start: 12-03-2015 Pneumococcal vaccination PNEUMOCOCCAL VACCINE AGE 65+ (1 of 2 - PCV13) [facility] Start: 12-03-2015 PNEUMOCOCCAL: 65+ (1 - PCV) PNEUMOCOCCAL: 65+ (1 - PCV) [facility] Start: 12-03-2015 Screening for osteoporosis Bone Density Screening [facility] Start: 2010 Respiratory Syncytial Virus Immunization: Risk, 60-74 Risk, or 75+ (1 - Risk 60-74 years 1-dose series) Respiratory Syncytial Virus Immunization: Risk, 60-74 Risk, or 75+ (1 - Risk 60-74 years 1-dose series) [facility] Start: 2000 Administration of herpes zoster vaccine Zoster Vaccines (1 of 2) [facility] Start: 2000 Screening for malignant neoplasm of colon Flexible sigmoidoscopy [facility] Start: 2000 SHINGRIX VACCINE (1 of 2) SHINGRIX VACCINE (1 of 2) [facility] Start: 12-03-1995 COLOGUARD (FIT-DNA) COLOGUARD (FIT-DNA) [facility] Start: 12-03-1995 Colonoscopy COLONOSCOPY [facility] Start: 12-03-1995 COLORECTAL CANCER SCREENING COLORECTAL CANCER SCREENING [facility] Start: 12-03-[address] COLONOGRAPHY [facility] Start: 12-03-1995 DIABETES SCREEN DIABETES SCREEN [facility] Start: 12-03-1995 FECAL OCCULT BLOOD FECAL OCCULT BLOOD [facility] Start: 12-03-1995 Lipid panel Lipid Screening [facility] Start: 12-03-1995 LIPID SCREEN LIPID SCREEN [facility] Start: 12-03-1995 Screening for malignant neoplasm of colon [facility] Start: 12-03-1995 SIGMOIDOSCOPY SIGMOIDOSCOPY [facility] Start: 1990 Mammography MAMMOGRAM [facility] Start: 1969 Urine microalbumin profile DTAP,TDAP,TD (1 - Tdap) [facility] Start: 1968 Anxiety Screening Anxiety Screening [facility] Start: 1968 Depression Screening Depression Screening [facility] Start: 1968 HEPATITIS C SCREENING HEPATITIS C SCREENING [facility] Start: 1968 Hepatitis C screening Hepatitis C Screening [facility] Start: 1962 Depression screening using PHQ-9 (Patient Health Questionnaire 9) score Depression Screening/Follow-Up (PHQ-2/9) [facility] Start: 1953 History and physical examination, annual for health maintenance Wellness Visit [facility] Start: 1953 Medicare Wellness Visit Medicare Wellness Visit [facility] Start: 1950 Fall risk assessment Falls Risk Assessment [facility] Start: 1950 Hepatitis C antibody, confirmatory test HEPATITIS C SCREENING [facility] Start: 1950 Screening for malignant neoplasm of colon [facility] Start: 1950 Screening for osteoporosis Dexa Scan [facility] Start: 1950 Screening mammography Mammogram [facility] Start: 1950 Tetanus vaccination TETANUS EVERY 10 YR [facility] End: 09-11-2019 48 hour ambulatory electrocardiographic monitoring Holter monitor - 48 hour Cardiac Services Routine Tachycardia Once for 1 Occurrences starting 09/11/2019 until 09/11/2019 [facility] Comment on above: Once for 1 Occurrences starting 09/11/19 until 09/11/2019 Ambulatory ECG Event Monitor Amb ulatory ECG Event Monitor Cardiac Services Routine Chest pain, unspecified type Palpitations Ordered: 12/03/2024 [facility] Work Phone: Comment on above: Ordered: 12/03/2024 CTA Heart and [place] ry arteries WO and W contrast IV CT CCTA Heart With And Without Contrast Imaging Routine 07/31/2024 10:30 AM EST [facility] Work Phone: Immunizations Immunization Date Immunization Notes Care Provider Attila moe 05-31-2022 influenza virus vaccine, unspecified formulation Molly Kirby OD Work Phone: [facility] Payers Date Payer Category Payer Self-pay 2021 Medicare [employer] MEDICARE A ETNA MEDICARE PPO [id number] 2021-Present [phone] [address] [place] [address] PPO [id number] 2020 Unknown [id number] 2019 Medicare [employer] MANA[place]ED [place]ICARE [employer] MEDICARE PLAN (PPO) xxxxxxxx 2019-Present xxxxxxxx [id number] 2019 Medicare PPO AETNA MEDICARE P LIN (PPO) [id number] 2015 Private Health Insurance [facility] [id number] 2015 Unknown AETNA\AETPAMELA MACIAS 1950 Unknown [id number] 2.16.840.1.945116.3.579.2. 1068 1950 Unknown [id number] 2.16.840.1.608510.3.579.2. 106 1950 Unknown [id number] 2.16.840.1.704960.3.579.2. 106 1950 Unknown [id number] 2.16.840.1.090976.3.579.2. 1069 1950 Unknown [id number] 2.16.840.1.503420.3.579.2. 106 1950 Unknown [id number] 2.16.840.1.558551.3.579.2. 902 1950 Unknown [id number] 2.16.840.1.993947.3.579.2. 90 1950 Unknown [id number] 2.16.840.1.683069.3.579.2. 903 1950 Unknown [id number] 2.16.840.1.840245.3.579.2. 90 Unknown [id number] 2.16.840.1.187339.3.579.2. 462 Unknown [id number] 2.16.840.1.101950.3.579.2. 462 Unknown [id number] 2.16.840.1.380712.3.579.2. 462 Unknown [id number] 2.16.840.1.195144.3.579.2. 462 Unknown [id number] 2.16.840.1.593646.3.579.2. 462 Unknown [id number] 2.16.840.1.352384.3.579.2. 462 Unknown [id number] 2.16.840.1.606355.3.579.2. 462 Unknown [id number] 2.16.840.1.866462.3.579.2. 462 Unknown [id number] 2.16.840.1.506291.3.579.2. 462 Social History Date Type Detail Facility Start: 09-08-2014 End: 09-06-2019 Tobacco smoking status NHIS Never smoker [facility] Start: 09-06-2019 End: 12-03-2024 Alcohol intake Current drinker of alcohol (finding) [facility] Start: 09-06-2019 Alcohol Comment social [facility] Start: 1950 Sex Assigned At Not on file [facility] Tobacco smoking consumption unknown [facility] Start: 09-08-2014 End: 09-06-2019 Tobacco use and exposure Smokeless tobacco non-user [facility] Start: 07-13-2021 End: 03-23-2024 Alcohol intake Ex-drinker (finding) [facility] Start: 07-13-2021 End: 07-30-2024 Alcohol intake [facility] Start: 09-08-2014 Alcohol Comment Occassionally [facility] Start: 1950 Sex Assigned At Female [facility] Start: 05-25-2021 End: 07-30-2024 Tobacco use panel [facility] National Score (1-10 0), lower number is lower risk Not on file [facility] Has the electric, ga s, [employer], or water company threatened to shut off services in your home in past 12Mo No [facility] (I/We) worried joby er (my/our) food would run out before (I/we) got money to buy more. Never true [facility] Start: 09-11-2019 Gender identity Identifies as female gender (finding) [facility] Start: 09-11-2019 Sexual orientation Heterosexual (finding) [facility] Start: 11-05-2024 End: 11-30-2024 Sex Female (finding) [facility] Functional Status Date Assessment Result Facility NEGATED: Highlighted row Functional performance Functional status health issues are not documented [facility] Work Phone: Mental Status Date Assessment Result Facility NEGATED: Highlighted row Cognitive function [Interpretation] Cognitive status health issues are not documented [facility] Work Phone: Clinical Notes 10-04-2022 to 01-12-2025 Telephone Encounter - Kit Wright MA - 12/04/2024 8:20 AM EDTTelephone Encounter - Kit Wright MA - 12/04/2024 8:20 AM EDTPatient Dipak Ferreira RN - 07/30/2024 9:00 PM EST Note Date & Type Note Facility 01-12-2025 Note HNO ID: [id number] Author: MOLLY KIRBY OD Service: ? Author Type: [employer] Type: Progress Notes Filed: 01/12/2025 15:10 Note Text: ASSESSMENT/PLAN: 1. Myopia of both eyes - ICD9: 367.1, ICD10: H52.13 (primary diagnosis) 2. Regular astigmatism of both eyes - ICD9: 367.21, ICD10: H52.223 3. Presbyopia - ICD9: 367.4, ICD10: H52.4 Continue to wear her glasses with the update. Continue to monitor her ocular health Recommended yearly exams. Molly Kirby, ANIBAL I have confirmed and edited as necessary the relevant ophthalmic history, ROS, and the neuro exam findings as obtained by others. [facility] 12-04-2024 Telephone encounter Note Error. [facility] 12-04-2024 Miscellaneous Notes Error. documented in this encounter [facility] 12-03-2024 Instructions Nita Null RN - 12/03/2024 2:42 PM EDT Images from the original note were not included. How to Contact your Care Team: Provider: Dr. Isabella Dixon MD Clinic Nurse: BRIANNE Moya Clinic MA: RAHUL Pantoja REFILLS: When in need for refills please call your care team or the office at [phone]. Please include medication name, pharmacy name, and specify 30-day or 90-day supply. Please check with your pharmacy within 24 hours of request for your refill. You must follow up as directed to continue current refills. Thank you! Patient Instructions So great to see you today! Please do not hesitate to call me if you have any questions! Here are the things we talked about... Can try taking metoprolol 12.5 mg as needed for sustained heart rates Will plan for 30-day event monitor, we will call with results and plan [facility] Holter Department GladysRAHUL [phone] [employer] ([facility]) [phone] IMPORTANT! [facility]/[employer] will be calling you from an [phone] number. You MUST answer this phone call and verify your address with the company, otherwise the monitor WILL NOT be mailed to you. If you do not receive a call from them within the week, feel free to reach out to them to verify your address. MONITOR END DATE: 30 days after placement *If you need help putting your monitor on, please call [phone] to schedule a nurse visit to go over instructions and device placement. Monitor Essentials 1. The device is waterproof. Showers are OKAY. Make sure you shave chest hair and clean and dry the skin before placing the monitor on your chest. 2. The monitor battery typically lasts 3-5 days, after this timeframe it will need to be charged. The figure model is included in the box. 3. Extra patches are inside of the box. Sensitivity patches will need to be mailed by [employer] if needed. If you are wearing the monitor for 30 days, I suggest calling [facility] and requesting extra patches to be mailed to you once you leave the office so you receive them before you run out. [phone] 4. Please DO NOT return the device to [facility] after the study has been completed. It will be the patient's responsibility to return the device to [facility]. 5. After the device is mailed, it will take 2-3 weeks for your results to be returned to you. It is the ordering provider s nurse responsibility to call you with the results. [facility] Drop Off Box Locations Number for [facility]: [phone] ST[facility] [address] [place], [address] [address] [place], [address] [place], [address] [facility] STORE [id number] [place], [address] [facility] [facility] [address] [place], [address] [facility] [address] [place], [address] [facility] [address] [place], [address] [facility] [address] [place], [address] [facility] MORE [address] [facility], [place] [address] [facility] [address] [facility], [place], [address] [facility] ST[id number] [place], [address] [facility] [address] [place], [address] [facility] [address] [place], [address] [facility] [address] [place], [address] [facility] STORE [id number] [place] [address] [facility] [address] [place], [address] documented in this encounter [facility] 12-03-2024 History of Present illness Narrative General Cardiology New Patient Clinic Consult [facility] Physician Group, Heart & Vascular 12/03/2024 Isabella Dixon MD [address], 3rd Floor Medical Office [facility] [address] Patient: Chinmay Grimaldo Date of : 1950 (74 y.o.) PCP: Trang Carr MD Date of Service: 12/03/2024 Chief Complaint: Palpitations and Tachycardia Assessment and Plan: 1. Palpitations (Primary) Patient having episodes of palpitations lasting 10 to 20 minutes, symptomatic, at her age would be concerned about atrial fibrillation or other supraventricular tachycardia Plan for 30-day event monitor As needed metoprolol 12.5 mg given for symptomatic palpitations Further testing depending on those results - Ambulatory ECG Event Monitor It has been a pleasure caring for this patient. Please don't hesitate to reach out to my office directly with any questions or concerns. Follow-up: Return if symptoms worsen or fail to improve. Isabella Dixon MD, [facility] Non-Invasive Cardiology [facility] Physician Group P:[phone] F:[phone] History of Present Illness: Chinmay Grimaldo is a 74 y.o. woman with a past medical history of recent viral infection who presents today as a new patient visit. Patient previously followed with Dr. Vasquez back in 2019 for palpitations. She states that over the past 3 to 4 months she has been experiencing a viral infection with sinus pressure and has noticed episodes of palpitations, they have happened more frequently most recently over the past 2 weeks 3 times. She notes that her heart rate will suddenly shoot up to the 130s to 160s beats per minute, often at rest, symptomatic with shortness of breath. She does feel a prodrome she feels her heart rate increasing, family members had noted that she did not look well during these episodes. She is able to break these episodes on her own after laying in a quiet place. She denies any exertional chest pain or pressure or shortness of breath. Objective Review of Systems: All systems were reviewed and are noted to be negative unless otherwise stated in HPI. Past Medical History: Diagnosis Date Palpitations Past Surgical History: Procedure Laterality Date APPENDECTOMY CARDIAC CATHETERIZATION 05/2003 no angiographically definable CAD CYSTO 1996 Family History Problem Relation Age of Onset Rheumatic fever Mother Supraventricular tachycardia Mother Heart attack Father Heart disease Father Tobacco Use History[1] Allergies: Boniva [ibandronate] All of the information has been reviewed at today's visit and modified if necessary. Home Medications: Current Medications[2] Physical Exam: BP 129/65 (BP Location: Right arm, Patient Position: Sitting, BP Cuff Size: Adult) Pulse 69 Ht 5' 3 Wt 62.8 kg (138 lb 8 oz) SpO2 97% BMI 24.53 kg/m Constitutional: Well appearing female, no acute distress Head: Normocephalic and atraumatic. Eyes: Conjunctivae are normal, no scleral icterus, no corneal arcus Neck: No acanthosis nigricans, no elevated jugular venous distension, no hepatojugular reflux Cardiovascular: Regular rate and rhythm, no murmurs appreciated on today's exam, normal S1 and S2, no rubs or gallops, PMI is midline Pulses: +2 dorsalis pedis pulses bilaterally Musculoskeletal: Normal range of motion. No cyanosis. No peripheral Edema Neurological: AOx3, moving all extremities normally Skin: Skin is warm and dry, normal hair pattern Psychiatric: Normal mood and affect, appropriate conversation Cardiovascular Studies: EKG 11/28/2024 showing normal sinus rhythm nonspecific ST changes CCTA 2023 Procedure: Computed tomographic angiography with contrast, including 3D image post-processing (including evaluation of cardiac structures and morphology, assessment of cardiac function and evaluation of venous structures, if performed) BMI: 25 kg/msq HR: 55 BPM Acquisition mode: Prospective, ECG triggered Complications: None Image Quality: Good, No significant artifacts. Scanner: [employer] DLP 123.07 mGy 72 cc Isovue-370. 0.4mg SL nitroglycerin administered prior to scan. Radiation dose reduction was achieved by using automated exposure control and or adjustments of mA and/or kV according to patient size and/or use of iterative reconstruction techniques. Coronary Calcium / Agatston scoring: LM: 0 RCA: 0 LAD: 72 LCX: 0 Total: 72 Percentile age/gender cohort: 60th percentile for age, gender and race/ethnicity-matched group per GREER database. Coronary Angiography: Left Main: The left main is a short vessel with a normal take off from the left coronary cusp that bifurcates. There is no plaque or stenosis. Left anterior descending artery: The LAD is patent with mild calcific plaque in the proximal LAD 1-24%. The LAD gives off two diagonal branches, D1 is a large vessel that is widely patent. Left circumflex artery: The LCx is dominant and patent with no evidence of plaque or stenosis. The LCx gives off two obtuse marginal branches that are patent. The PDA arises from the LCx and is patent. Right coronary artery: The RCA is small and non dominant with no evidence of plaque or stenosis. Cardiac Morphology: Left atrium: Left atrial size is Normal Left Ventricle: The ventricular cavity size is within normal limits. There is no abnormal filling defects. Pulmonary Veins: Normal pulmonary venous drainage. Pericardium: Normal thickness with no significant effusion or calcification present. Cardiac valves: There is no thickening or calcification in the aortic and mitral valves. Aorta: Normal caliber of the portion of the thoracic aorta imaged. AAo 30 mm at the PA bifurcation. No calcification. PLEASE SEE SEPARATE RADIOLOGY REPORT FOR THE NONCARDIAC FINDINGS IMPRESSION: 1. Total calcium score of 72 places patient in the 60th percentile for age, gender and race/ethnicity-matched group per GREER database. 2. Minimal coronary plaque identified by Coronary CT Angiography CAD RADS (score): 1/P1 RECOMMENDATIONS: CAD-RADS 1. 1-24% coronary stenosis. Minimal non-obstructive coronary artery disease. Plaque: P1. Mild coronary artery plaque. Coronary calcium score is 1-100. Segment Involvement Score is 2 or less. Visually 1-2 vessels have mild plaque. Consider risk factor modification and preventive pharmacotherapy. Modifiers: No modifiers are present Exceptions: None Labs: Lab Results Component Value Date GLUCOSE 114 (H) 11/28/2024 CALCIUM 9.9 11/28/2024 NA 141 11/28/2024 K 3.9 11/28/2024 CL 103 11/28/2024 BUN 11 11/28/2024 CREATININE 0.77 11/28/2024 Lab Results Component Value Date ALT 16 11/28/2024 AST 19 11/28/2024 ALKPHOS 70 11/28/2024 BILITOT 0.3 11/28/2024 Lab Results Component Value Date WBC 5.22 11/28/2024 HGB 13.6 11/28/2024 HCT 42.6 11/28/2024 MCV 93.6 11/28/2024 PLT 241 11/28/2024 RBC 4.55 11/28/2024 Lab Results Component Value Date CHOL 168 07/31/2024 LDLCALC 80 07/31/2024 TRIG 66 07/31/2024 HDL 75 07/31/2024 No results found for: HGBA1C Lab Results Component Value Date ALT 16 11/28/2024 AST 11/28/2024 ALKPHOS 70 11/28/2024 BILITOT 0.3 11/28/2024 The 10-year ASCVD risk score (Lori DE PAZ, et al., 2019) is: 14.3% Values used to calculate the score: Age: 74 years Sex: Female Is Non- : No Diabetic: No Tobacco smoker: No Systolic Blood Pressure: 129 mmHg Is BP treated: No HDL Cholesterol: 75 mg/dL Total Cholesterol: 168 mg/dL [1] Social History Tobacco Use Smoking Status Never Smokeless Tobacco Never [2] Current Outpatient Medications: acetaminophen (TYLENOL) 500 MG tablet, Take 2 (two) tablets (1,000 mg total) by mouth every 6 (six) hours as needed for pain ., Disp: , Rfl: aspirin 81 MG EC tablet, Take 1 (one) tablet (81 mg total) by mouth daily ., Disp: , Rfl: cetirizine-pseudoePHEDrine (ZyrTEC-D) 5-120 mg per tablet, Take 1 (one) tablet by mouth 2 (two) times a day ., Disp: 60 tablet, Rfl: 0 cholecalciferol, vitamin D3, 125 mcg (5,000 unit) capsule, Take 1 (one) capsule (5,000 Units total) by mouth daily ., Disp: , Rfl: cyanocobalamin (vitamin B-12) 1000 MCG tablet, Take 1 (one) tablet (1,000 mcg total) by mouth every other day ., Disp: , Rfl: denosumab (Prolia) 60 mg/mL Syrg, Inject 60 (sixty) mg under the skin every 6 (six) months ., Disp: , Rfl: fluticasone propionate (FLONASE) 50 mcg/actuation nasal spray, Instill 2 (two) sprays into each nostril daily ., Disp: 16 g, Rfl: 0 pantoprazole (PROTONIX) 40 MG tablet, Take 1 (one) tablet (40 mg total) by mouth daily ., Disp: , Rfl: rosuvastatin (CRESTOR) 10 MG tablet, Take 2 (two) tablets (20 mg total) by mouth nightly ., Disp: 60 tablet, Rfl: 0 traZODone (DESYREL) 50 MG tablet, Take 1 (one) tablet (50 mg total) by mouth nightly as needed for sleep ., Disp: 30 tablet, Rfl: 0 metoprolol tartrate (LOPRESSOR) 25 MG tablet, Take 0.5 (one-half) tablet (12.5 mg total) by mouth 2 (two) times a day as needed ., Disp: 30 tablet, Rfl: 11 sucralfate (CARAFATE) 1 gram tablet, Take 1 (one) tablet (1 g total) by mouth 4 (four) times a day before meals . (Patient not taking: Reported on 12/03/2024 .), Disp: 120 tablet, Rfl: 0 documented in this encounter [facility] 12-03-2024 Note General Cardiology N ew Patient Clinic Consult [facility] Phys[facility], Heart & Vascular 12/03/2024 Isabella Dixon MD [address] [place] [address], 3rd Floor Medical Office [facility] [address] Patient: Chinmay Grimaldo Date of : 1950 (74 y.o.) PCP: Trang Carr MD Date of Service: 12/03/2024 Chief Complaint: Palpitations and Tachycardia Assessment and Plan: 1. Palpitations (Primary) Patient having episodes of palpitations lasting 10 to 20 minutes, symptomatic, at her age would be concerned about atrial fibrillation or other supraventricular tachycardia Plan for 30-day event monitor As needed metoprolol 12.5 mg given for symptomatic palpitations Further testing depending on those results - Ambulatory ECG Event Monitor It has been a pleasure caring for this patient. Please don't hesitate to reach out to my office directly with any questions or concerns. Follow-up: Return if symptoms worsen or fail to improve. Isabella Dixon MD, [facility] Non-Invasive Cardiology [facility] Physician [facility] P:[phone] F:[phone] ------ History of Present Illness: Chinmay Grimaldo is a 74 y.o. woman with a past medical history of recent viral infection who presents today as a new patient visit. Patient previously followed with Dr. Vasquez back in 2019 for palpitations. She states that over the past 3 to 4 months she has been experiencing a viral infection with sinus pressure and has noticed episodes of palpitations, they have happened more frequently most recently over the past 2 weeks 3 times. She notes that her heart rate will suddenly shoot up to the 130s to 160s beats per minute, often at rest, symptomatic with shortness of breath. She does feel a prodrome she feels her heart rate increasing, family members had noted that she did not look well during these episodes. She is able to break these episodes on her own after laying in a quiet place. She denies any exertional chest pain or pressure or shortness of breath. Objective Review of Systems: All systems were reviewed and are noted to be negative unless otherwise stated in HPI. Past Medical History: Diagnosis Date Palpitations Past Surgical History: Procedure Laterality Date APPENDECTOMY CARDIAC CATHETERIZATION 05/2003 no angiographically definable CAD CYSTO 1996 Family History Problem Relation Age of Onset Rheumatic fever Mother Supraventricular tachycardia Mother Heart attack Father Heart disease Father Tobacco Use History[1] Allergies: Boniva [ibandronate] All of the information has been reviewed at today's visit and modified if necessary. Home Medications: Current Medications[2] Physical Exam: BP 129/65 (BP Location: Right arm, Patient Position: Sitting, BP Cuff Size: Adult) Pulse 69 Ht 5' 3 Wt 62.8 kg (138 lb 8 oz) SpO2 97% BMI 24.53 kg/m Constitutional: Well appearing female, no acute distress Head: Normocephalic and atraumatic. Eyes: Conjunctivae are normal, no scleral icterus, no corneal arcus Neck: No acanthosis nigricans, no elevated jugular venous distension, no hepatojugular reflux Cardiovascular: Regular rate and rhythm, no murmurs appreciated on today's exam, normal S1 and S2, no rubs or gallops, PMI is midline Pulses: +2 dorsalis pedis pulses bilaterally Musculoskeletal: Normal range of motion. No cyanosis. No peripheral Edema Neurological: AOx3, moving all extremities normally Skin: Skin is warm and dry, normal hair pattern Psychiatric: Normal mood and affect, appropriate conversation Cardiovascular Studies: EKG 11/28/2024 showing normal sinus rhythm nonspecific ST changes CCTA 2023 Procedure: Computed tomographic angiography with contrast, including 3D image post-processing (including evaluation of cardiac structures and morphology, assessment of cardiac function and evaluation of venous structures, if performed) BMI: 25 kg/msq HR: 55 BPM Acquisition mode: Prospective, ECG triggered Complications: None Image Quality: Good, No significant artifacts. Scanner: [employer] Revolution DLP 123.07 mGy 72 cc Isovue-370. 0.4mg SL nitroglycerin administered prior to scan. Radiation dose reduction was achieved by using automated exposure control and or adjustments of mA and/or kV according to patient size and/or use of iterative reconstruction techniques. Coronary Calcium / Agatston scoring: LM: 0 RCA: 0 LAD: 72 LCX: 0 Total: 72 Percentile age/gender cohort: 60th percentile for age, gender and race/ethnicity-matched group per GREER database. Coronary Angiography: Left Main: The left main is a short vessel with a normal take off from the left coronary cusp that bifurcates. There is no plaque or stenosis. Left anterior descending artery: The LAD is patent with mild calcific plaque (more content not included)... [facility] 07-31-2024 Progress note Formatting of t his note might be different from the original. Patient alert and oriented at time of discharge. After visit summary provided. Patient acknowledges understanding of discharge teaching with teach back. [facility] 07-31-2024 Miscellaneous Notes Patient alert and oriented at time of discharge. After visit summary provided. Patient acknowledges understanding of discharge teaching with teach back. CCTA scan explained, questions answered. Denies taking any phosphodiesterase inhibitors for any reason Problem: Actual or potential alteration in health Goal: Absence of healthcare acquired conditions Outcome: Partially Met Goal: Knowledge of Interdisciplinary Plan of Care Outcome: Partially Met Goal: Knowledge of Enviroment Outcome: Partially Met Problem: Pain Goal: Reduced pain sensation Outcome: Partially Met Goal: Control of acute pain to acceptable level Outcome: Partially Met Goal: Able to cope with pain Outcome: Partially Met Goal: Able to achieve maximum level of physical functioning Outcome: Partially Met Goal: Able to achieve maximum level of psychosocial functioning Outcome: Partially Met Problem: Actual or potential alteration in health Goal: Absence of healthcare acquired conditions Outcome: Partially Met Goal: Knowledge of Interdisciplinary Plan of Care Outcome: Partially Met Goal: Knowledge of Enviroment Outcome: Met Problem: Pain Goal: Reduced pain sensation Outcome: Partially Met Goal: Control of acute pain to acceptable level Outcome: Partially Met Goal: Able to cope with pain Outcome: Partially Met Goal: Able to achieve maximum level of physical functioning Outcome: Met Goal: Able to achieve maximum level of psychosocial functioning Outcome: Partially Met documented in this encounter [facility] 07-31-2024 Note HMS DISCHARGE SUMMAR Y -- [facility] Chinmay Grimaldo Admitted: 07/30/2024 Discharge Date: 07/31/24 PCP Handoff Recommended Outpatient Testing Follow up with PCP, referral sent to cardiology Results Pending At Discharge None Clinical Summary Chinmay Grimaldo is a 73 y.o. female patient of Trang Carr MD with history of GERD who presented to [facility] on 07/30/2024 with chest pain. Chest pain Recently had holter monitor placed, was told by her PCP she had tachycardia CXR negative for acute findings EKG sinus rhythm, no ST changes noted Troponin 6>6 D-Dimer negative CCTA: Total calcium score 72, places patient at 60% risk, minimal coronary plaque identified Increase statin therapy add ASA GERD Continue PPI Added Carafate Follow up outpatient HLD CAD Continue statin Start ASA Discharge Medications Discharge Medications New Medications Details aspirin 81 MG EC tablet Take 1 (one) tablet (81 mg total) by mouth daily . Quantity: 30 tablet sucralfate 1 gram tablet Commonly known as: CARAFATE Take 1 (one) tablet (1 g total) by mouth 4 (four) times a day before meals . Quantity: 120 tablet Modified Medications Details rosuvastatin 10 MG tablet Commonly known as: CRESTOR What changed: how much to take Take 2 (two) tablets (20 mg total) by mouth nightly . Quantity: 60 tablet Medications To Continue Details acetaminophen 500 MG tablet Commonly known as: TYLENOL Take 2 (two) tablets (1,000 mg total) by mouth every 6 (six) hours as needed for pain . cholecalciferol (vitamin D3) 125 mcg (5,000 unit) capsule Take 1 (one) capsule (5,000 Units total) by mouth daily . pantoprazole 40 MG tablet Commonly known as: PROTONIX Take 1 (one) tablet (40 mg total) by mouth daily . Prolia 60 mg/mL Syrg Generic drug: denosumab Inject 60 (sixty) mg under the skin every 6 (six) months . traZODone 50 MG tablet Commonly known as: DESYREL Take 1 (one) tablet (50 mg total) by mouth nightly as needed for sleep . Quantity: 30 tablet vitamin B-12 1000 MCG tablet Generic drug: cyanocobalamin Take 1 (one) tablet (1,000 mcg total) by mouth every other day . Physician(s) Follow Up: Trang Carr MD [address] [facility] [id number] Follow up Day, Isabella Otto MD [address] [facility] [address] Follow up Referral sent Condition at Discharge: Good Disposition: Home I reviewed discharge recommendations with the patient in person. Patient instructions, including activity, were given to the patient/family at discharge. On day of discharge I saw Chinmay Grimaldo and spent: > 30 minutes on discharge. Completed by: Darby Velasco CNP on 07/31/24, 1:20 PM AUTHENTICATED BY DARBY VELASCO, ON 07/31/2024 13:26:58 [facility] 07-31-2024 Hospital course Narrative [facility] [place] SUMMARY -- [facility] Chinmay Grimaldo Admitted: 07/30/2024 Discharge Date: 07/31/24 PCP Handoff Recommended Outpatient Testing Follow up with PCP, referral sent to cardiology Results Pending At Discharge None Clinical Summary Chinmay Grimaldo is a 73 y.o. female patient of Trang Carr MD with history of GERD who presented to [facility] on 07/30/2024 with chest pain. Chest pain Recently had holter monitor placed, was told by her PCP she had tachycardia CXR negative for acute findings EKG sinus rhythm, no ST changes noted Troponin 6>6 D-Dimer negative CCTA: Total calcium score 72, places patient at 60% risk, minimal coronary plaque identified Increase statin therapy add ASA GERD Continue PPI Added Carafate Follow up outpatient HLD CAD Continue statin Start ASA Discharge Medications Discharge Medications New Medications Details aspirin 81 MG EC tablet Take 1 (one) tablet (81 mg total) by mouth daily . Quantity: 30 tablet sucralfate 1 gram tablet Commonly known as: CARAFATE Take 1 (one) tablet (1 g total) by mouth 4 (four) times a day before meals . Quantity: 120 tablet Modified Medications Details rosuvastatin 10 MG tablet Commonly known as: CRESTOR What changed: how much to take Take 2 (two) tablets (20 mg total) by mouth nightly . Quantity: 60 tablet Medications To Continue Details acetaminophen 500 MG tablet Commonly known as: TYLENOL Take 2 (two) tablets (1,000 mg total) by mouth every 6 (six) hours as needed for pain . cholecalciferol (vitamin D3) 125 mcg (5,000 unit) capsule Take 1 (one) capsule (5,000 Units total) by mouth daily . pantoprazole 40 MG tablet Commonly known as: PROTONIX Take 1 (one) tablet (40 mg total) by mouth daily . Prolia 60 mg/mL Syrg Generic drug: denosumab Inject 60 (sixty) mg under the skin every 6 (six) months . traZODone 50 MG tablet Commonly known as: DESYREL Take 1 (one) tablet (50 mg total) by mouth nightly as needed for sleep . Quantity: 30 tablet vitamin B-12 1000 MCG tablet Generic drug: cyanocobalamin Take 1 (one) tablet (1,000 mcg total) by mouth every other day . Physician(s) Follow Up: Trang Carr MD [address] [facility] [id number] Follow up Day, Isabella Otto MD [address] [facility] [address] Follow up Referral sent Condition at Discharge: Good Disposition: Home I reviewed discharge recommendations with the patient in person. Patient instructions, including activity, were given to the patient/family at discharge. On day of discharge I saw Chinmay Grimaldo and spent: > 30 minutes on discharge. Completed by: Darby Velasco CNP on 07/31/24, 1:20 PM documented in this encounter [facility] 07-31-2024 Nurse procedure note CCTA scan explained, questions answered. Denies taking any phosphodiesterase inhibitors for any reason [facility] 07-31-2024 Plan of care note Problem: Actual or potential alteration in health Goal: Absence of healthcare acquired conditions Outcome: Partially Met Goal: Knowledge of Interdisciplinary Plan of Care Outcome: Partially Met Goal: Knowledge of Enviroment Outcome: Partially Met Problem: Pain Goal: Reduced pain sensation Outcome: Partially Met Goal: Control of acute pain to acceptable level Outcome: Partially Met Goal: Able to cope with pain Outcome: Partially Met Goal: Able to achieve maximum level of physical functioning Outcome: Partially Met Goal: Able to achieve maximum level of psychosocial functioning Outcome: Partially Met [facility] 07-31-2024 Plan of care note Problem: Actual or potential alteration in health Goal: Absence of healthcare acquired conditions Outcome: Partially Met Goal: Knowledge of Interdisciplinary Plan of Care Outcome: Partially Met Goal: Knowledge of Enviroment Outcome: Met Problem: Pain Goal: Reduced pain sensation Outcome: Partially Met Goal: Control of acute pain to acceptable level Outcome: Partially Met Goal: Able to cope with pain Outcome: Partially Met Goal: Able to achieve maximum level of physical functioning Outcome: Met Goal: Able to achieve maximum level of psychosocial functioning Outcome: Partially Met [facility] 07-30-2024 Emergency department Note Report called to inpatient nurse June DECKER. Patient history, current status, and reason for admission discussed. No further questions asked at this time. [facility] 07-30-2024 Emergency department Note Report called to inpatient nurse June DECKER. Patient history, current status, and reason for admission discussed. No further questions asked at this time. Attempt to call report to inpatient nurse. Nurse will call this nurse back [facility] per charge. Patient resting in bed at this time. Chest rise equal and spontaneous. Respirations easy and unlabored. Skin within normal limits, warm and dry. Patient updated on plan of care. Encouraged patient to ask questions related to care and plan, patient denies any questions at this time. Bed in lowest position with wheels locked. Bedside table and belongings in reach. ID band in place and call light within reach. Patient resting in bed at this time. Chest rise equal and spontaneous. Respirations easy and unlabored. Skin within normal limits, warm and dry. Patient updated on plan of care. Encouraged patient to ask questions related to care and plan, patient denies any questions at this time. Bed in lowest position with wheels locked. Bedside table and belongings in reach. ID band in place and call light within reach. Patient resting in bed at this time. Chest rise equal and spontaneous. Respirations easy and unlabored. Skin within normal limits, warm and dry. Patient updated on plan of care. Encouraged patient to ask questions related to care and plan, patient denies any questions at this time. Bed in lowest position with wheels locked. Bedside table and belongings in reach. ID band in place and call light within reach. Associated Order(s): EKG 12-lead [facility] ED note NAME: Chinmay Grimaldo 73 y.o. CSN: [id number] PCP: Trang Carr MD History: Chief Complaint: Chest Pain HPI: Patient is a 73-year-old female present to the ED with complaint of chest. Patient states she has had rapid heart rate and chest discomfort she was seen by cardiology wore Holter monitor for a week she was told it was rapid heart rate no other abnormality she was told to follow-up with her PCP. Denies history of CAD TN PE pneumothorax she said about 15 years ago she had a stress test followed by cardiac cath which was unremarkable. She said the past few days she has had diffuse anterior chest discomfort radiating to bilateral upper arm. No traumas or falls no shortness of breath or difficulty breathing . Denies history of diabetes hypertension denies history of smoking denies recent travel hospitalization or sick contact and no bowel or bladder. PMHx: Past Medical History: Diagnosis Date Palpitations PMSx: Past Surgical History: Procedure Laterality Date APPENDECTOMY CARDIAC CATHETERIZATION 05/2003 no angiographically definable CAD CYSTO 1996 FAM. Hx: History reviewed. No pertinent family history. SOC. Hx: Social History Socioeconomic History Marital status: Tobacco Use Smoking status: Never Smokeless tobacco: Never Vaping Use Vaping status: Never Used Substance and Sexual Activity Alcohol use: Yes Comment: social Drug use: Never Social Drivers of Health Food Insecurity: No Food Insecurity (07/30/2024) Hunger Vital Sign Worried About Running Out of Food in the Last Year: Never true Ran Out of Food in the Last Year: Never true Transportation Needs: No Transportation Needs (07/30/2024) PRAPARE - Transportation Lack of Transportation (Medical): No Lack of Transportation (Non-Medical): No Housing Stability: Low Risk (07/30/2024) Housing Stability Vital Sign Unable to Pay for Housing in the Last Year: No Number of Times Moved in the Last Year: 1 Homeless in the Last Year: No MEDs: Previous Medications Medication Sig acetaminophen (TYLENOL) 500 MG tablet Take 2 (two) tablets (1,000 mg total) by mouth every 6 (six) hours as needed for pain . cholecalciferol, vitamin D3, 125 mcg (5,000 unit) capsule Take 1 (one) capsule (5,000 Units total) by mouth daily . cyanocobalamin (vitamin B-12) 1000 MCG tablet Take 1 (one) tablet (1,000 mcg total) by mouth every other day . denosumab (Prolia) 60 mg/mL Syrg Inject 60 (sixty) mg under the skin every 6 (six) months . pantoprazole (PROTONIX) 40 MG tablet Take 1 (one) tablet (40 mg total) by mouth daily . rosuvastatin (CRESTOR) 10 MG tablet Take 1 (one) tablet (10 mg total) by mouth nightly . traZODone (DESYREL) 50 MG tablet Take 1 (one) tablet (50 mg total) by mouth nightly . (Patient taking differently: Take 1 (one) tablet (50 mg total) by mouth nightly as needed for sleep .) ALL: Allergies Allergen Reactions Boniva [Ibandronate] Anaphylaxis ROS: Review of Systems All other systems reviewed and are negative. Positives and pertinent negatives as per HPI. All other systems were reviewed and are negative. Physical Exam: Patient Vitals for the past 24 hrs: BP Temp Temp src Pulse Resp SpO2 Height Weight 07/31/24 0901 -- -- -- 70 -- -- -- -- 07/31/24 0322 (!) 102/59 97.8 F (36.6 C) Oral 66 16 96 % -- -- 07/30/24 2308 122/66 98.2 F (36.8 C) Oral 68 16 97 % -- -- 07/30/24 2230 122/82 -- -- 64 17 96 % -- -- 07/30/240 128/71 -- -- 67 (!) 19 97 % -- -- 07/30/24 2100 (!) 129/59 -- -- 73 (!) 21 97 % -- -- 07/30/242036 137/69 -- -- 69 (!) 23 97 % -- -- 07/30/242006 129/68 -- -- 69 14 97 % -- -- 07/30/241951 134/65 -- -- 68 18 98 % -- -- 07/30/24 1829 (!) 146/77 98.5 F (36.9 C) Oral 79 16 95 % 5' 3 62.6 kg (138 lb) Physical Exam Vitals and nursing note reviewed. Constitutional: General: She is not in acute distress. Appearance: She is well-developed. She is not ill-appearing. HENT: Head: Normocephalic and atraumatic. Eyes: Extraocular Movements: Extraocular movements intact. Pupils: Pupils are equal, round, and reactive to light. Cardiovascular: Rate and Rhythm: Normal rate and regular rhythm. Heart sounds: Normal heart sounds. Musculoskeletal: General: Normal range of motion. Cervical back: Normal range of motion and neck supple. Right lower leg: No edema. Left lower leg: No edema. Pulmonary: Effort: Pulmonary effort is normal. Breath sounds: Normal breath sounds. Abdominal: General: Bowel sounds are normal. Palpations: Abdomen is soft. Skin: General: Skin is warm. Neurological: General: No focal deficit present. Mental Status: She is alert. Laboratory & Radiological Imaging (if done): Labs Reviewed COMPREHENSIVE METABOLIC PANEL - Abnormal; Notable for the following components: Result Value Glucose 106 (*) All other components within normal limits Narrative: [facility] has implemented the eGFR calculation approach that does not have a coefficient for race that conforms to the NKF-ASN Task Force Recommendations. NT PRO BNP - Normal Narrative: Pride Study Cut-offs Rule In: < /= 50 Years >450 pg/mL 51 Years - 75 Years >900 pg/mL 76 Years - 99 Years >1800 pg/mL Rule Out: All patients <300 pg/mL LIPASE - Normal D-DIMER, QUANTITATIVE - Normal Narrative: A D-dimer concentration of <0.5 micrograms per milliliter FEU is considered a low probability for pulmonary embolus (PE) and deep venous thrombosis (DVT). Results of this test should always be interpreted in conjunction with the patient's medical history,clinical presentation, and other findings. Clinical diagnosis should not be based on the results of the D-dimer alone. CBC AND DIFFERENTIAL Narrative: The following orders were created for panel order CBC w/ Diff. Procedure Abnormality Status --------- ------ CBC Auto Differential[[id number]] Final result Please view results for these tests on the individual orders. TROPONIN TROPONIN TROPONIN CBC WITH AUTO DIFFERENTIAL XR Chest 1 View Final Result 1. Minimal linear atelectasis or scarring in the left lower lung zone. 2. Normal heart size. 3. No acute osseous abnormality. GJT/alt Workstation ID: [id number] CCTA Heart With And Without Contrast (Results Pending) CCTA Heart (Wireless Communications Engineer read) (Results Pending) Procedures: EKG 12-lead Date/Time: 07/30/2024 7:36 PM Performed by: Yisel Josue MD Authorized by: Yisel Josue MD Interpreted by ED attending physician Rhythm: sinus rhythm BPM: 75 Conduction: conduction normal ST Segments: ST segments normal T Waves: T waves normal Clinical impression: non-specific ECG Comments: EKG with normal sinus rhythm rate of 75 beats per minutes NJ interval 148 ms QRS duration 84 ms QTc [address]-T wave abnormalities. Her past medical problem list included: Active Ambulatory Problems Diagnosis Date Noted Palpitations Chest discomfort Resolved Ambulatory Problems Diagnosis Date Noted No Resolved Ambulatory Problems No Additional Past Medical History ED MEDICATIONS GIVEN: Medications pantoprazole (PROTONIX) EC tablet 40 mg (40 mg Oral Given 07/31/24 0902) atorvastatin (LIPITOR) tablet 20 mg (20 mg Oral Given 07/30/24 2253) traZODone (DESYREL) tablet 50 mg (has no administration in time range) acetaminophen (TYLENOL) tablet 650 mg (has no administration in time range) aluminum-magnesium hydroxide-simethicone (MAALOX PLUS) 200-200-20 mg/5 mL suspension 30 mL (has no administration in time range) nitroGLYCERIN (NITROSTAT) SL tablet 0.4 mg (has no administration in time range) sucralfate (CARAFATE) tablet 1 g (1 g Oral Given 07/31/24 0633) sodium chloride 0.9% (NS) (has no administration in time range) metoprolol (LOPRESSOR) injection 10 mg (has no administration in time range) nitroGLYCERIN (NITROSTAT) SL tablet 0.4 mg (has no administration in time range) atropine injection 1 mg (has no administration in time range) metoprolol tartrate (LOPRESSOR) tablet 50-100 mg (100 mg Oral Given 07/31/24 0901) After reviewing the items above, I look at previous medical documentation, such as recent hospitalizations, office visits, and/or recent consultations with PCP/specialist. SDOH: Another factor that I considered in Chinmay's care was her Social Determinants of Health (SDOH). During this ED encounter, she LAB TESTING: Ancillary lab testing . CBC CMP BNP troponins lipase RADIOLOGY: I did consider radiological studies for Chinmay's care today, . Chest x-ray ED COURSE: Patient is a 73-year-old female no previous history of CAD presents to the ED chest pain concerning for possible ACS versus CHF versus pulm embolism versus metabolic versus sepsis further workup initiated. Initial workup is unremarkable however with a higher score 5 continued symptoms patient will be abs for further management. History: Moderately suspicious ECG: Non-specific repolarization disturbance Age: 65+ Risk Factors: 1-2 risk factors Troponin: Less than or equal to normal limit HEART Score: 5 Chinmay Grimaldo has a calculated HeartScore between 4-6. Her risk of major adverse cardiac events (MACE) in the next 6 weeks is approximately 20.3% or moderate risk. ED SCORING TOOLS HEART Score History: Moderately suspicious ECG: Non-specific repolarization disturbance Age: 65+ Risk Factors: 1-2 risk factors Troponin: Less than or equal to normal limit HEART Score: 5 Clinical Impression: 1. Chest pain, unspecified type Disposition: ED Disposition ED Disposition Hospitalize Condition -- Comment Phone call required?: No Yisel Josue MD ED Attending Physician [facility] Emergency Department (Please note that portions of this note have been completed with a voice recognition software. Efforts were made to correct any errors, but occasionally words are mis-transcribed.) Yisel Josue MD 07/31/24 1004 Assumed care of this patient at this time,.Pt rounded on at this time. Pt resting comfortably. Denies needs at this time. Updated on plan of care. Call light within reach. Patient reports chest pain on and off x 1 month. Patient reports she had a helter monitor a 1 week and just looked up her results tonight. ED provider at the bedside. Pt to ED with c/o chest pain that started today. Pt states it flares up when she eats. documented in this encounter [facility] 07-30-2024 Emergency department Note Attempt to call report to inpatient nurse. Nurse will call this nurse back via [employer] per charge. [facility] 07-30-2024 Emergency department Note Patient resting in bed at this time. Chest rise equal and spontaneous. Respirations easy and unlabored. Skin within normal limits, warm and dry. Patient updated on plan of care. Encouraged patient to ask questions related to care and plan, patient denies any questions at this time. Bed in lowest position with wheels locked. Bedside table and belongings in reach. ID band in place and call light within reach. [facility] 07-30-2024 History and physical note [facility] HISTORY AND PHYSICAL -- [facility] Patient Name: Chinmay Grimaldo : 1950 MR #: [id number] Admit Date: 07/30/2024 Physicians: Trang Carr MD (Family); No ref. provider found (Referring) Chinmay Grimaldo is a 73 y.o. female patient of Trang Carr MD with history of GERD who presented to [facility] on 07/30/2024 with chest pain. Chest pain Pt with chest discomfort starting earlier today Stated she had heartburn symptoms after eating sweets yesterday, denies any previous heartburn symptoms Recently had holter monitor placed, was told by her PCP she had tachycardia CXR negative for acute findings EKG sinus rhythm, no ST changes noted Troponin <6, repeat pending. D-dimer negative Monitor on telemetry If symptoms worsen or troponin elevated, consult cardiology GERD Continue PPI HLD Continue statin Residence prior to admission: house or apartment Was patient transferred from outlying hospital or ED no Quality Measures DVT Prophylaxis: ambulation only Cordero Catheter: absent Medication Reconciliation: Verified Admitted with these risk variables:None. Please see assessment and plan for further details. Estimated Date of Discharge less than 2 midnights Code Status Full Code; code status verified on 07/30/2024 with patient (capacity intact) Chief Complaint Chest pain History of Present Illness Chinmay Grimaldo is a 73 y.o. female patient of Trang Carr MD with history of GERD who presented to [facility] on 07/30/2024 with chest pain. Pt stated she started having chest pain earlier today. She was unable to describe the pain, just described it as a sensation in the left side of her chest. It did not worsen with activity or improve with rest. Did not change with deep inspiration. She went to [facility] for further evaluation. EKG unremarkable. CXR negative for acute findings. Pt was given no meds while in ED. On exam, pt states she still has a sensation in my chest. She stated she had some bad heartburn after eating sweets yesterday. She is on protonix and has not had heartburn symptoms in a long time. She recently wore a holter monitor and was told by her PCP that she had tachycardia' on her holter monitor. She was not told what the rate was. She denies shortness of breath, palpitations, dizziness, lightheadedness, fever, chills. Past Medical History Past Medical History: Diagnosis Date Palpitations Past Surgical History Past Surgical History: Procedure Laterality Date APPENDECTOMY CARDIAC CATHETERIZATION 05/2003 no angiographically definable CAD CYSTO 1996 Family History History reviewed. No pertinent family history. Social History Social History Tobacco Use Smoking Status Never Smokeless Tobacco Never Social History Substance and Sexual Activity Alcohol Use Yes Comment: social Social History Substance and Sexual Activity Drug Use Never Allergy Information I have reviewed the patient's allergies. Boniva [ibandronate] Home Medications Home medications were reviewed. Review Of Systems All relevant systems have been reviewed and are negative except as noted in HPI or below Physical Examination BP (!) 129/59 Pulse 73 Temp 98.5 F (36.9 C) (Oral) Resp (!) 21 Ht 5' 3 Wt 62.6 kg (138 lb) SpO2 97% BMI 24.45 kg/m General Appearance: alert; well appearing; in no acute distress HEENT: Head- normocephalic; Eyes- EOMI, sclera anicteric; Throat- mucous membranes moist Cardiovascular: regular rate and rhythm; normal S1, S2; no murmurs, rubs, clicks or gallops; peripheral edema absent Respiratory: lungs clear to auscultation; without wheezes, rales or rhonchi; on room air Abdomen: soft, non-tender, non-distended Neurological: oriented x 3; normal speech; no focal findings or movement disorder noted Musculoskeletal: no significant deformity or tenderness to palpation Skin: normal coloration Psych: normal mood and affect Cosigned by Jere Colon DO at 07/31/2024 1:58 AM EST Associated attestation - Jere Colon DO - 07/31/2024 1:58 AM EST I personally assessed the patient and reviewed the history, physical exam, assessment, and plan documented by the SHAMAR. The case was discussed, and I agree with the plan. Briefly, Ms. Grimaldo is a 73-year-old female who presented with chest discomfort. No radiation. No association with exertion. Outpatient workup so far nonischemic in etiology. In the ED, EKG unremarkable, chest x-ray unremarkable, Trope negative. Etiology suspected to be gastrointestinal, however, admitted patient as ACS rule out given heart score of 5. Trend troponins. Serial EKGs. Consider referral to GI for EGD--given uncontrolled GERD for the past 5 years. Will add sucralfate. Will continue to monitor and adjust care as needed. [facility] 07-30-2024 History and physical note [facility] [place] AND PHYSICAL -- [facility] Patient Name: Chinmay Grimaldo : 1950 MR #: [id number] Admit Date: 07/30/2024 Physicians: Trang Carr MD (Family); No ref. provider found (Referring) Chinmay Grimaldo is a 73 y.o. female patient of Trang Carr MD with history of GERD who presented to [facility] on 07/30/2024 with chest pain. Chest pain Pt with chest discomfort starting earlier today Stated she had heartburn symptoms after eating sweets yesterday, denies any previous heartburn symptoms Recently had holter monitor placed, was told by her PCP she had tachycardia CXR negative for acute findings EKG sinus rhythm, no ST changes noted Troponin <6, repeat pending. D-dimer negative Monitor on telemetry If symptoms worsen or troponin elevated, consult cardiology GERD Continue PPI HLD Continue statin Residence prior to admission: house or apartment Was patient transferred from outlying hospital or ED no Quality Measures DVT Prophylaxis: ambulation only Cordero Catheter: absent Medication Reconciliation: Verified Admitted with these risk variables:None. Please see assessment and plan for further details. Estimated Date of Discharge less than 2 midnights Code Status Full Code; code status verified on 07/30/2024 with patient (capacity intact) Chief Complaint Chest pain History of Present Illness Chinmay Grimaldo is a 73 y.o. female patient of Trang Carr MD with history of GERD who presented to [facility] on 07/30/2024 with chest pain. Pt stated she started having chest pain earlier today. She was unable to describe the pain, just described it as a sensation in the left side of her chest. It did not worsen with activity or improve with rest. Did not change with deep inspiration. She went to [facility] for further evaluation. EKG unremarkable. CXR negative for acute findings. Pt was given no meds while in ED. On exam, pt states she still has a sensation in my chest. She stated she had some bad heartburn after eating sweets yesterday. She is on protonix and has not had heartburn symptoms in a long time. She recently wore a holter monitor and was told by her PCP that she had tachycardia' on her holter monitor. She was not told what the rate was. She denies shortness of breath, palpitations, dizziness, lightheadedness, fever, chills. Past Medical History Past Medical History: Diagnosis Date Palpitations Past Surgical History Past Surgical History: Procedure Laterality Date APPENDECTOMY CARDIAC CATHETERIZATION 05/2003 no angiographically definable CAD CYSTO 1996 Family History History reviewed. No pertinent family history. Social History Social History Tobacco Use Smoking Status Never Smokeless Tobacco Never Social History Substance and Sexual Activity Alcohol Use Yes Comment: social Social History Substance and Sexual Activity Drug Use Never Allergy Information I have reviewed the patient's allergies. Boniva [ibandronate] Home Medications Home medications were reviewed. Review Of Systems All relevant systems have been reviewed and are negative except as noted in HPI or below Physical Examination BP (!) 129/59 Pulse 73 Temp 98.5 F (36.9 C) (Oral) Resp (!) 21 Ht 5' 3 Wt 62.6 kg (138 lb) SpO2 97% BMI 24.45 kg/m General Appearance: alert; well appearing; in no acute distress HEENT: Head- normocephalic; Eyes- EOMI, sclera anicteric; Throat- mucous membranes moist Cardiovascular: regular rate and rhythm; normal S1, S2; no murmurs, rubs, clicks or gallops; peripheral edema absent Respiratory: lungs clear to auscultation; without wheezes, rales or rhonchi; on room air Abdomen: soft, non-tender, non-distended Neurological: oriented x 3; normal speech; no focal findings or movement disorder noted Musculoskeletal: no significant deformity or tenderness to palpation Skin: normal coloration Psych: normal mood and affect Cosigned by Jere Colon DO at 07/31/2024 1:58 AM EST Associated attestation - Jere Colon DO - 07/31/2024 1:58 AM EST I personally assessed the patient and reviewed the history, physical exam, assessment, and plan documented by the SHAMAR. The case was discussed, and I agree with the plan. Briefly, Ms. Grimaldo is a 73-year-old female who presented with chest discomfort. No radiation. No association with exertion. Outpatient workup so far nonischemic in etiology. In the ED, EKG unremarkable, chest x-ray unremarkable, Trope negative. Etiology suspected to be gastrointestinal, however, admitted patient as ACS rule out given heart score of 5. Trend troponins. Serial EKGs. Consider referral to GI for EGD--given uncontrolled GERD for the past 5 years. Will add sucralfate. Will continue to monitor and adjust care as needed. documented in this encounter [facility] 07-30-2024 Emergency department Note Patient resting in bed at this time. Chest rise equal and spontaneous. Respirations easy and unlabored. Skin within normal limits, warm and dry. Patient updated on plan of care. Encouraged patient to ask questions related to care and plan, patient denies any questions at this time. Bed in lowest position with wheels locked. Bedside table and belongings in reach. ID band in place and call light within reach. [facility] 07-30-2024 Emergency department Note Patient resting in bed at this time. Chest rise equal and spontaneous. Respirations easy and unlabored. Skin within normal limits, warm and dry. Patient updated on plan of care. Encouraged patient to ask questions related to care and plan, patient denies any questions at this time. Bed in lowest position with wheels locked. Bedside table and belongings in reach. ID band in place and call light within reach. [facility] 07-30-2024 Physician Emergency department Note Associated Order(s): EKG 12-lead [facility] ED note NAME: Chinmay Grimaldo 73 y.o. CSN: [id number] PCP: Trang Carr MD History: Chief Complaint: Chest Pain HPI: Patient is a 73-year-old female present to the ED with complaint of chest. Patient states she has had rapid heart rate and chest discomfort she was seen by cardiology wore Holter monitor for a week she was told it was rapid heart rate no other abnormality she was told to follow-up with her PCP. Denies history of CAD TN PE pneumothorax she said about 15 years ago she had a stress test followed by cardiac cath which was unremarkable. She said the past few days she has had diffuse anterior chest discomfort radiating to bilateral upper arm. No traumas or falls no shortness of breath or difficulty breathing . Denies history of diabetes hypertension denies history of smoking denies recent travel hospitalization or sick contact and no bowel or bladder. PMHx: Past Medical History: Diagnosis Date Palpitations PMSx: Past Surgical History: Procedure Laterality Date APPENDECTOMY CARDIAC CATHETERIZATION 05/2003 no angiographically definable CAD CYSTO 1996 FAM. Hx: History reviewed. No pertinent family history. SOC. Hx: Social History Socioeconomic History Marital status: Tobacco Use Smoking status: Never Smokeless tobacco: Never Vaping Use Vaping status: Never Used Substance and Sexual Activity Alcohol use: Yes Comment: social Drug use: Never Social Drivers of Health Food Insecurity: No Food Insecurity (07/30/2024) Hunger Vital Sign Worried About Running Out of Food in the Last Year: Never true Ran Out of Food in the Last Year: Never true Transportation Needs: No Transportation Needs (07/30/2024) PRAPARE - Transportation Lack of Transportation (Medical): No Lack of Transportation (Non-Medical): No Housing Stability: Low Risk (07/30/2024) Housing Stability Vital Sign Unable to Pay for Housing in the Last Year: No Number of Times Moved in the Last Year: 1 Homeless in the Last Year: No MEDs: Previous Medications Medication Sig acetaminophen (TYLENOL) 500 MG tablet Take 2 (two) tablets (1,000 mg total) by mouth every 6 (six) hours as needed for pain . cholecalciferol, vitamin D3, 125 mcg (5,000 unit) capsule Take 1 (one) capsule (5,000 Units total) by mouth daily . cyanocobalamin (vitamin B-12) 1000 MCG tablet Take 1 (one) tablet (1,000 mcg total) by mouth every other day . denosumab (Prolia) 60 mg/mL Syrg Inject 60 (sixty) mg under the skin every 6 (six) months . pantoprazole (PROTONIX) 40 MG tablet Take 1 (one) tablet (40 mg total) by mouth daily . rosuvastatin (CRESTOR) 10 MG tablet Take 1 (one) tablet (10 mg total) by mouth nightly . traZODone (DESYREL) 50 MG tablet Take 1 (one) tablet (50 mg total) by mouth nightly . (Patient taking differently: Take 1 (one) tablet (50 mg total) by mouth nightly as needed for sleep .) ALL: Allergies Allergen Reactions Boniva [Ibandronate] Anaphylaxis ROS: Review of Systems All other systems reviewed and are negative. Positives and pertinent negatives as per HPI. All other systems were reviewed and are negative. Physical Exam: Patient Vitals for the past 24 hrs: BP Temp Temp src Pulse Resp SpO2 Height Weight 07/31/24 0901 -- -- -- 70 -- -- -- -- 07/31/24 0322 (!) 102/59 97.8 F (36.6 C) Oral 66 16 96 % -- -- 07/30/24 2308 122/66 98.2 F (36.8 C) Oral 68 16 97 % -- -- 07/30/242229 122/82 -- -- 64 17 96 % -- -- 07/30/242199 128/71 -- -- 67 (!) 19 97 % -- -- 07/30/242099 (!) 129/59 -- -- 73 (!) 21 97 % -- -- 07/30/242036 137/69 -- -- 69 (!) 23 97 % -- -- 07/30/242006 129/68 -- -- 69 14 97 % -- -- 07/30/241951 134/65 -- -- 68 18 98 % -- -- 07/30/24 1829 (!) 146/77 98.5 F (36.9 C) Oral 79 16 95 % 5' 3 62.6 kg (138 lb) Physical Exam Vitals and nursing note reviewed. Constitutional: General: She is not in acute distress. Appearance: She is well-developed. She is not ill-appearing. HENT: Head: Normocephalic and atraumatic. Eyes: Extraocular Movements: Extraocular movements intact. Pupils: Pupils are equal, round, and reactive to light. Cardiovascular: Rate and Rhythm: Normal rate and regular rhythm. Heart sounds: Normal heart sounds. Musculoskeletal: General: Normal range of motion. Cervical back: Normal range of motion and neck supple. Right lower leg: No edema. Left lower leg: No edema. Pulmonary: Effort: Pulmonary effort is normal. Breath sounds: Normal breath sounds. Abdominal: General: Bowel sounds are normal. Palpations: Abdomen is soft. Skin: General: Skin is warm. Neurological: General: No focal deficit present. Mental Status: She is alert. Laboratory & Radiological Imaging (if done): Labs Reviewed COMPREHENSIVE METABOLIC PANEL - Abnormal; Notable for the following components: Result Value Glucose 106 (*) All other components within normal limits Narrative: [facility] Laboratory Services has implemented the eGFR calculation approach that does not have a coefficient for race that conforms to the NKF-ASN Task Force Recommendations. NT PRO BNP - Normal Narrative: Pride Study Cut-offs Rule In: < /= 50 Years >450 pg/mL 51 Years - 75 Years >900 pg/mL 76 Years - 99 Years >1800 pg/mL Rule Out: All patients <300 pg/mL LIPASE - Normal D-DIMER, QUANTITATIVE - Normal Narrative: A D-dimer concentration of <0.5 micrograms per milliliter FEU is considered a low probability for pulmonary embolus (PE) and deep venous thrombosis (DVT). Results of this test should always be interpreted in conjunction with the patient's medical history,clinical presentation, and other findings. Clinical diagnosis should not be based on the results of the D-dimer alone. CBC AND DIFFERENTIAL Narrative: The following orders were created for panel order CBC w/ Diff. Procedure Abnormality Status --------- ------ CBC Auto Differential[[id number]] Final result Please view results for these tests on the individual orders. TROPONIN TROPONIN TROPONIN CBC WITH AUTO DIFFERENTIAL XR Chest 1 View Final Result 1. Minimal linear atelectasis or scarring in the left lower lung zone. 2. Normal heart size. 3. No acute osseous abnormality. gokit/Pirq Workstation ID: [id number] CCTA Heart With And Without Contrast (Results Pending) CCTA Heart (Wireless Communications Engineer read) (Results Pending) Procedures: EKG 12-lead Date/Time: 07/30/2024 7:36 PM Performed by: Yisel Josue MD Authorized by: Yisel Josue MD Interpreted by ED attending physician Rhythm: sinus rhythm BPM: 75 Conduction: conduction normal ST Segments: ST segments normal T Waves: T waves normal Clinical impression: non-specific ECG Comments: EKG with normal sinus rhythm rate of 75 beats per minutes NJ interval 148 ms QRS duration 84 ms QTc [address]-T wave abnormalities. Her past medical problem list included: Active Ambulatory Problems Diagnosis Date Noted Palpitations Chest discomfort Resolved Ambulatory Problems Diagnosis Date Noted No Resolved Ambulatory Problems No Additional Past Medical History ED MEDICATIONS GIVEN: Medications pantoprazole (PROTONIX) EC tablet 40 mg (40 mg Oral Given 07/31/24 0902) atorvastatin (LIPITOR) tablet 20 mg (20 mg Oral Given 07/30/24 2253) traZODone (DESYREL) tablet 50 mg (has no administration in time range) acetaminophen (TYLENOL) tablet 650 mg (has no administration in time range) aluminum-magnesium hydroxide-simethicone (MAALOX PLUS) 200-200-20 mg/5 mL suspension 30 mL (has no administration in time range) nitroGLYCERIN (NITROSTAT) SL tablet 0.4 mg (has no administration in time range) sucralfate (CARAFATE) tablet 1 g (1 g Oral Given 07/31/24 0633) sodium chloride 0.9% (NS) (has no administration in time range) metoprolol (LOPRESSOR) injection 10 mg (has no administration in time range) nitroGLYCERIN (NITROSTAT) SL tablet 0.4 mg (has no administration in time range) atropine injection 1 mg (has no administration in time range) metoprolol tartrate (LOPRESSOR) tablet 50-100 mg (100 mg Oral Given 07/31/24 0901) After reviewing the items above, I look at previous medical documentation, such as recent hospitalizations, office visits, and/or recent consultations with PCP/specialist. SDOH: Another factor that I considered in Chinmay's care was her Social Determinants of Health (SDOH). During this ED encounter, she LAB TESTING: Ancillary lab testing . CBC CMP BNP troponins lipase RADIOLOGY: I did consider radiological studies for Chinmay's care today, . Chest x-ray ED COURSE: Patient is a 73-year-old female no previous history of CAD presents to the ED chest pain concerning for possible ACS versus CHF versus pulm embolism versus metabolic versus sepsis further workup initiated. Initial workup is unremarkable however with a higher score 5 continued symptoms patient will be abs for further management. History: Moderately suspicious ECG: Non-specific repolarization disturbance Age: 65+ Risk Factors: 1-2 risk factors Troponin: Less than or equal to normal limit HEART Score: 5 Chinmay Grimaldo has a calculated HeartScore between 4-6. Her risk of major adverse cardiac events (MACE) in the next 6 weeks is approximately 20.3% or moderate risk. ED SCORING TOOLS HEART Score History: Moderately suspicious ECG: Non-specific repolarization disturbance Age: 65+ Risk Factors: 1-2 risk factors Troponin: Less than or equal to normal limit HEART Score: 5 Clinical Impression: 1. Chest pain, unspecified type Disposition: ED Disposition ED Disposition Hospitalize Condition -- Comment Phone call required?: No Yisel Josue MD ED Attending Physician [facility] Emergency Department (Please note that portions of this note have been completed with a voice recognition software. Efforts were made to correct any errors, but occasionally words are mis-transcribed.) Yisel Jouse MD 07/31/24 1004 [facility] 07-30-2024 Emergency department Note Assumed care of this patient at this time,.Pt rounded on at this time. Pt resting comfortably. Denies needs at this time. Updated on plan of care. Call light within reach. [facility] 07-30-2024 Emergency department Note Patient reports chest pain on and off x 1 month. Patient reports she had a helter monitor a 1 week and just looked up her results tonight. [facility] 07-30-2024 Emergency department Note ED provider at the bedside. [facility] 07-30-2024 Emergency department Triage note Pt to ED with c/o chest pain that started today. Pt states it flares up when she eats. [facility] 03-23-2024 Molly Hope OD - 03/23/2024 2:25 PM EDT ASSESSMENT/PLAN: 1. Dry eyes - ICD9: 375.15, ICD10: H04.123 Recommended the use of artificial tears four times per day to maintain good vision and comfort. Discussed contacting the office if there is a change in comfort or vision. Suggested dilated eye exam documented in this encounter [facility] 03-23-2024 Note HNO ID: [id number] Author: MOLLY KIRBY OD Service: ? Author Type: SUPERVISOR MIRROR FABRICATION Type: Progress Notes Filed: 03/23/2024 14:26 Note Text: ASSESSMENT/PLAN: 1. Dry eyes - ICD9: 375.15, ICD10: H04.123 Recommended the use of artificial tears four times per day to maintain good vision and comfort. Discussed contacting the office if there is a change in comfort or vision. Suggested dilated eye exam Molly Kirby OD I have confirmed and edited as necessary the relevant ophthalmic history, ROS, and the neuro exam findings as obtained by others. [facility] 03-23-2024 History of Present illness Narrative ASSESSMENT/PLAN: 1. Dry eyes - ICD9: 375.15, ICD10: H04.123 Recommended the use of artificial tears four times per day to maintain good vision and comfort. Discussed contacting the office if there is a change in comfort or vision. Suggested dilated eye exam Molly Kirby OD I have confirmed and edited as necessary the relevant ophthalmic history, ROS, and the neuro exam findings as obtained by others. documented in this encounter [facility] 01-20-2024 Instructions Molly Kirby OD - 01/20/2024 8:31 AM EDT ASSESSMENT/PLAN: 1. Subconjunctival hemorrhage of left eye - ICD9: 372.72, ICD10: H11.32 Discussed self-limiting nature of problem in absence of underlying system complications such as hypertension, diabetes, and use of blood thinners. Patient reports all stable. Patient will monitor for slow resolution. Instruct patient to immediately report any change in condition outside of expected and discussed symptoms. Suggested artificial tears for comfort. Suggested a yearly dilated exam to be scheduled. documented in this encounter [facility] 01-20-2024 Note HNO ID: [id number] Author: MOLLY KIRBY OD Service: ? Author Type: SUPERVISOR MIRROR FABRICATION Type: Progress Notes Filed: 01/20/2024 08:32 Note Text: ASSESSMENT/PLAN: 1. Subconjunctival hemorrhage of left eye - ICD9: 372.72, ICD10: H11.32 Discussed self-limiting nature of problem in absence of underlying system complications such as hypertension, diabetes, and use of blood thinners. Patient reports all stable. Patient will monitor for slow resolution. Instruct patient to immediately report any change in condition outside of expected and discussed symptoms. Suggested artificial tears for comfort. Suggested a yearly dilated exam to be scheduled. Molly Kirby OD I have confirmed and edited as necessary the relevant ophthalmic history, ROS, and the neuro exam findings as obtained by others. [facility] 01-20-2024 History of Present illness Narrative ASSESSMENT/PLAN: 1. Subconjunctival hemorrhage of left eye - ICD9: 372.72, ICD10: H11.32 Discussed self-limiting nature of problem in absence of underlying system complications such as hypertension, diabetes, and use of blood thinners. Patient reports all stable. Patient will monitor for slow resolution. Instruct patient to immediately report any change in condition outside of expected and discussed symptoms. Suggested artificial tears for comfort. Suggested a yearly dilated exam to be scheduled. Molly Kirby OD I have confirmed and edited as necessary the relevant ophthalmic history, ROS, and the neuro exam findings as obtained by others. documented in this encounter [facility] 10-04-2022 Miguel Kirby II, OD - 10/04/2022 12:43 PM EST [...] agree with all of its relevant components. Romero Kirby II, OD documented in this encounter [facility] 10-04-2022 History of Present illness Narrative Assessment and Plan H01.02B Squamous [...] agree with all of its relevant components. 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 [facility] noteNo assessment information availableWThe Jewish Hospital Work Phone: Evaluation note* Diagnosis Subconjunctival hemorrhage of left eye- Primary [facility] Diagnosis Dry eyes- Primary Tear film insufficiency, unspecified [facility] Diagnosis Cardiac arrhythmia, unspecified cardiac arrhythmia type- Primary Palpitations Chest discomfort Other chest pain Chest pain- Primary Unspecified chest pain Chest pain, unspecified type [facility] Cardiac arrhythmia, unspecified cardiac arrhythmia type- Primary Palpitations Chest discomfort Other chest pain Palpitations- Primary Chest pain, unspecified type documented in this encounter [facility] Discharge instructions* Attachments The following attachments cannot be sent through Care Everywhere. * Chest Pain (Dominican) documented in this encounterOhioHealthReason for referral (narrative)No reason for referral information availableWThe Jewish Hospital Work Phone: Summary Purpose Family History No Family History Records FoundNo Family History Records FoundNo Family History Records FoundNo Family History Records FoundNo Family History Records FoundNo Family History Records FoundNo Family History Records FoundNo Family History Records FoundNo Family History Records Found Advance Directives No Advanced Directives Records FoundDocuments on File Type Date Recorded Patient Wrap Turner Expl anation Advance Directives and Livin g Will 09/06/2019 5:10 PM Documents on File Type Date Recorded Patient Wrap Turner Expl anation Advance Directives and Livin g Will 09/06/2019 5:10 PM Advance Directives and Livin g Will 09/11/2019 12:00 AM Documents on File Type Date Recorded Patient Wrap Turner Expl anation Advance Directives and Livin g Will 09/06/2019 5:10 PM Advance Directives and Livin g Will 09/11/2019 12:00 AM Documents on File Type Date Recorded Patient Wrap Turner Expl anation Advance Directives and Living Will 09/11/2019 Date Activated Date Inactivated Comments 07/30/2024 9:33 PM 07/31/2024 4:30 PM Documents on File Type Date Recorded Patient Wrap Turner Expl anation Advance Directives and Living Will 09/11/2019 Date Activated Date Inactivated Comments 07/30/2024 9:33 PM 07/31/2024 4:30 PM Reason for Referral Status Reason Specialty Diagnoses / Procedures Referred By Contact Referred To Contact Pending Review Specialty Services Required/Patien t's Best Interest Cardiology Yisel Josue MD [address] [place] [id number] Status Reason Specialty Diagnoses / Procedures Referred By Contact Referred To Contact Pending Review Cardiology Diagnoses Tachycardia Procedures Holter monitor - 48 hour Dipak Seth MD [address] [place] [address] Discharge Instructions * Attachments The following attachments cannot be sent through Care Everywhere. * Hypokalemia (Dominican) * Palpitations (Dominican) documented in this encounter Assessments Diagnosis Palpitations Hypokalemia Hypopotassemia Diagnosis Cardiac arrhythmia, unspecified cardiac arrhythmia type Palpitations Chest discomfort Other chest pain Diagnosis Tachycardia Unspecified tachycardia Instructions Name Dates Details Instructions not documented History of Present Illness * Kimo Vasquez MD - 09/22/2019 9:27 AM EST OFFICE CONSULTATION NOTE [facility] [address] [facility] [address] [facility] [address] Physicians: Dipak Seth MD (Family); Yisel Josue MD (Referring) Subjective: Chinmay Grimaldo is a [...] you have any questions regarding these thoughts. 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 1. Independent HEP to allow for 50% reduction in max ADL C/C sx ( 8/10) 2-3wks 2. 0/10 night time sx to allow for uninterrupted sleep x1wk ( 7) 2-3wks 3. Survey score improvement from 22% [...] to attempt independence (more content not included)... Chief Complaint and Reason for Visit Chief Complaint SEE ORDER Additional Source Comments INFORMATION SOURCE (unrecogn ized section and content) DATE CREATED AUTHOR 04/17/2019 [facility] DATE CREATED AUTHOR AUTHOR'S ORGANIZ ATION 10/31/2020 [employer] DATE CREATED AUTHOR AUTHOR'S ORGANIZ ATION 01/25/2022 [facility] DATE CREATED AUTHOR AUTHOR'S ORGANIZ ATION 12/15/2022 [facility] DATE CREATED AUTHOR AUTHOR'S ORGANIZ ATION 12/01/2023 [facility] DATE CREATED AUTHOR AUTHOR'S ORGANIZ ATION 12/04/2024 [facility] DATE CREATED AUTHOR AUTHOR'S ORGANIZ ATION 12/05/2024 [facility] DATE CREATED AUTHOR AUTHOR'S ORGANIZ ATION 01/12/2025 [facility] DATE CREATED AUTHOR AUTHOR'S ORGANIZ ATION 01/13/2025 [facility] Reason for Visit (unrecogniz ed section and content) Reason Comments increased heart rate Reason Comments Establish Care hx of palpitations. no complaints of palps currently. Holter completed. Status Reason Specialty Diagnoses / Procedures Referred By Contact Referred To Contact Pending Review Specialty Services Required/Patien t's Best Interest Cardiology Yisel Josue MD [address] [place] [address] Status Reason Specialty Diagnoses / Procedures Referred By Contact Referred To Contact Pending Review Cardiology Diagnoses Tachycardia Procedures Holter monitor - 48 hour Dipak Seth MD [address] [place] [address] Reason Comments Blepharitis Evaluation Reason Comments Red Eye Left Eye Reason Comments Eye Pain Left Eye Reason Comments Chest Pain Specialty Diagnoses / Procedures Referred By Contac t Referred To Contact Diagnoses Chest pain Referral ID Status Reason Start Date Expiration Date Visits Re quested Visits Authorized [id number] 1 1 Reason Comments Palpitations Tachycardia Specialty Diagnoses / Procedures Referred By Contac t Referred To Contact Cardiology Diagnoses Chest pain, unspecified type [facility] [address] [place] [address] Phone: tel: fax: Isabella Dixon MD [address] [place] [address] Phone: tel: fax: Referral ID Status Reason Start Date Expiration Date V isits Requested Visits Authorized [id number] Pending Review 08/31/2024 08/31/2025 1 1 Reason Onset Date Comments Medication Refill 12/04/2024 Reason Onset Date Comments Medication Refill 12/03/2024 Olga Guevraa RN - 09/06/2019 4:57 PM ESTYisel Josue MD - 09/06/2019 4:56 PM EST ED Notes (unrecognized secti on and content) PT STATES SHE HAS BEEN NAUSEATED WITH DISCOMFORT IN HER R CHEST. PT STATES HER HEART RATE ON HER FITBIT WAS 190. PT ALSO STATES SHE FELT DIZZY. DENIES PREVIOUS HISTORY. ED PROVIDER NOTE [facility] NAME: Chinmay Grimaldo AGE: 68 y.o. : 1950 VISIT DATE: 09/06/2019 CSN: [id number] PCP: Dipak Seth MD Chief Complaint Patient [...] thyroid abnormalities she denies any history of [place] PE pneumothorax no recent travel hospitalization or [...] file Gets together: Not on file Attends spiritism service: Not on file Active member of [...] Colorless, Yellow Clarity, Urine Clear Clear Specific Dale 1.009 1.005 - 1.025 pH, Urine 5.0 [...] any previous history of coronary artery disease [place] PE pneumothorax presents to the ED with [...] Why: If symptoms worsen [address] [facility] [address] 2. [facility]. Specialty: Cardiology Why: If symptoms worsen [address] [facility] Medical Office [facility] [address] Contact information for after-discharge care Follow-up information has not been specified. Yisel Josue MD 09/06/19 1903 documented in this encounter Assessment & Plan Note - Kimo Vasquez MD - 09/22/2019 9:31 AM ESTAssessment & Plan Note - Kimo Vasquez MD - 09/22/2019 9:30 AM EST Miscellaneous [...] ed section and content) Section Author: Guillermina Tineo PROHIBITION ON REDISCLOSURE [...] this informatio n is protected by the [facility] Confidentiality of Alcohol and Drug Abuse Patient Records regulations: The Federal rules restrict any use of the information to criminally investigate or prosecute any alcohol or drug abuse patient.[facility] the event this information is protected by the Federal Confidentiality of Alcohol and Drug Abuse Patient Records regulations: The Federal rules restrict any use of the information to criminally investigate or prosecute any alcohol or drug abuse patient.[facility] CampusIn the event this information is protected by the Federal Confidentiality of Alcohol and Drug Abuse Patient Records regulations: The Federal rules restrict any use of the information to criminally investigate or prosecute any alcohol or drug abuse patient.[facility] Care Teams (unrecognized sec tion and content) Vamp Maker Relationship Specialty Start Date End Date Dipak Seth PCP - General Family Medicine 04/05/11 Team Status: Active Member Role Status Dates Dr. Dipak Seth MD Primary Care Provider Active Team Status: Inactive Member Role Status Dates Dr. Dipak Seth MD Primary Care Provider Active Dr. Sergio Espinoza MD Attending Provider, Referring Provider Active Team Status: Inactive Member Role Status Dates Dr. Dipak Seth MD Primary Care Provider Active Sondra Vu DO Attending Provider Active Vamp Maker Relationship Specialty Start Date End Date Trang Carr MD [address] [facility] [address] [place], [place] [address] PCP - General Internal Medicine 01/20/24 Vamp Maker Relationship Specialty Start Date End Date Trang Carr MD [address] [facility] [address] [place], [place] [id number] PCP - General Internal Medicine 01/20/24 Vamp Maker Relationship Specialty Start Date End Date Trang Carr MD [address] [place], [place] [id number] PCP - General Family Medicine 11/25/23 Team Status: Active Member Role Status Jenny Carr MD Primary Care Provider Active Team Status: Inactive Member Role Status Dates Trang Carr MD Primary Care Provider Active St art: November 24, 2024 End: November 24, 2024 Aroldo Cespedes RETORT FIRER, RETORT FIRER-C Attending Provider Active Start: November 24, 2024 End: November 24, 2024 Aroldo Cespedes RETORT FIRER, RETORT FIRER-C Referring Provider Active Start: November 24, 2024 End: November 24, 2024 Vamp Maker Relationship Specialty Start Date End Date Trang Carr MD [address] [place], [place] [id number] PCP - General Family Medicine 11/25/23 Vamp Maker Relationship Specialty Start Date End Date Trang Carr MD [address] [place], [place] [id number] PCP - General Family Medicine 11/25/23 Goals (unrecognized section and content) Goals may be documented in a n alternate sectionGoals may be documented in an alternate sectionGoals may be documented in an alternate sectionGoals may be documented in an alternate section Scheduled Active and Recently Administ ered Medications (unrecognized section and content) Medication Order 07/29/2024 07/30/2024 07/31/2024 atorvastatin (LIPITOR) tablet 20 mg 20 mg, Oral, Nightly, First dose on Andreina 07/30/24 at 2215 2253 (Given - Provider: Dipak Maldonado RN) metoprolol tartrate (LOPRESSOR) tablet 50-100 mg (COMPLETED) 50-100 mg, Oral, Once, On Sat07/31/24 at 0915, For 1 dose, Pre-Procedure, 1 hour prior to CCTA exam, if HR greater than 60. Hold for HR less than or equal to 59, SEE ADMINISTRATION INSTRUCTIONS for dosage, For 1 Dose Pre-Procedure. For HR greater than 60 beats per minute AND patient IS already on a beta-melvina, give 50mg. For HR greater than 60 beats per minute AND patient is NOT already on a beta-melvina, give 100mg. 09 (Given - Provid er: Amanda López RN) nitroGLYCERIN (NITROSTAT) SL tablet 0.4 mg 0.4 mg, Sublingual, Once, On Sat07/31/24 at 0915, For 1 dose, Pre-Procedure, >>>>>TO BE RELEASED AND GIVEN IN PROCEDURE AREA ONLY<<<<< If SBP greater than 90 Give following the Calcium Scoring Protocol, AND just prior to Coronary CT Angiogram. DO NOT GIVE IF patient is currently taking sildenafil citrate (VIAGRA, REVATIO), tadalafil (CIALIS), or vardenafil (LEVITRA). DO NOT CRUSH OR CHEW. 15 (Not Given - Provider: Amanda López RN - Reason: Contraindicated) pantoprazole (PROTONIX) EC tablet 40 mg 40 mg, Oral, Daily, First dose on Sat07/31/24 at 0900, DO NOT CRUSH OR CHEW. 09 (Given - Provid er: Amanda López RN) sucralfate (CARAFATE) tablet 1 g 1 g, Oral, 4 times daily before meals, First dose on Sat07/31/24 at 0600, Do not administer antacids within 30 minutes or other oral medications within 2 hours of sucralfate administration. Administer at least 1 hour before a meal. Hold continuous tube feeds for at least 1 hour before until 1 hour after each dose. Flush tube with 30mL of water before and after administration. Tube feed rate may need adjusted to meet caloric needs. 0633 (Given - Provid er: June Black RN)1113 (Given - Provider: Amanda López, BRIANNE) Continuous Medication Order 07/29/2024 07/30/2024 07/31/2024 sodium chloride 0.9% (NS) 25 mL/hr, Intravenous, Continuous, Starting on Sat07/31/24 at 0915, Pre-Procedure 0915 (Not Given - Pr ovider: Amanda López RN - Reason: Contraindicated) PRN Medication Order 07/29/2024 07/30/2024 07/31/2024 acetaminophen (TYLENOL) tablet 650 mg 650 mg, Oral, Every 4 hours PRN, fever 100.4 F or greater, Starting on Andreina 07/30/24 at 2203 aluminum-magnesium hydroxide-simethicone (MAALOX PLUS) 200-200-20 mg/5 mL suspension 30 mL 30 mL, Oral, Every 4 hours PRN, indigestion, heartburn, Starting on Andreina 07/30/24 at 2203 atropine injection 1 mg 1 mg, Intravenous, As needed, If HR less than 40 or continued symptomatic bradycardia, Starting on Sat07/31/24 at 0740, For 3 doses, Intra-Procedure, Administer over 1 minute. May repeat as needed every 3 minutes (maximum dose of 3 mg). iopamidoL (ISOVUE-370) 370 mg iodine /mL (76 %) injection 72 mL (COMPLETED) 72 mL, Intravenous, Once in imaging, contrast, Starting on Sat07/31/24 at 1005, For 1 dose 1020 (Contrast Admin istered - Provider: Jaden Price, TECHNOLOGIST - Comment: [id number]) metoprolol (LOPRESSOR) injection 10 mg 10 mg, Intravenous, Every 10 min PRN, 1 hour after oral dose for HR greater than 60 beats per minute AND SBP greater than 90 mmHg., Starting on Sat07/31/24 at 0817, For 3 doses, Pre-Procedure, >>>>>TO BE RELEASED AND GIVEN IN PROCEDURE AREA ONLY<<<<< Push over 3 minutes; may repeat dose 2 times. Notify Radiologist/Wireless Communications Engineer if HR remains greater than 60 beats per minute with maximum metoprolol (Lopressor) dose. nitroGLYCERIN (NITROSTAT) SL tablet 0.4 mg 0.4 mg, Sublingual, Every 5 min PRN, chest pain, Starting on Andreina 07/30/24 at 2203, For 3 doses, For chest pain unrelieved by Nitroglycerin or recurrent chest pain, CALL PHYSICIAN DO NOT CRUSH OR CHEW. nitroGLYCERIN (NITROSTAT) SL tablet (COMPLETED) Code/trauma/sedation medication, Starting on Sat07/31/24 at 1015, Intra-Procedure 1015 (Given - Provid er: Tiki Joe RN) sodium chloride (PF) (NS) 0.9 % contrast line flush 10 mL (COMPLETED)(Linked Group 1) 10 mL, Intravenous, Once in imaging, contrast, Per plant scientist (Radiology) for line patency check prior to contrast administration, Starting on Sat07/31/24 at 1005, For 1 dose 1020 (Given - Provid er: Jaden Price, TECHNOLOGIST) sodium chloride (PF) (NS) 0.9 % contrast line flush 80 mL (COMPLETED)(Linked Group 1) 80 mL, Intravenous, Once in imaging, contrast, Per plant scientist (Radiology), Starting on Sat07/31/24 at 1005, For 1 dose, 30 mL BEFORE contrast administration 50 mL AFTER contrast administration 1020 (Given - Provid er: Jaden Price, TECHNOLOGIST) traZODone (DESYREL) tablet 50 mg 50 mg, Oral, Nightly PRN, sleep, Starting on Andreina 07/30/24 at 2203 Linked Groups Order Group 1: sodium chloride (PF) (NS) 0.9 % contrast line flush 10 mL (COMPLETED)Jump to med 10 mL, Intravenous, Once in imaging, contrast, Per plant scientist (Radiology) for line patency check prior to contrast administration, Starting on Sat07/31/24 at 1005, For 1 dose And sodium chloride (PF) (NS) 0.9 % contrast line flush 80 mL (COMPLETED)Jump to med 80 mL, Intravenous, Once in imaging, contrast, Per plant scientist (Radiology), Starting on Sat07/31/24 at 1005, For 1 dose, 30 mL BEFORE contrast administration 50 mL AFTER contrast administration FOR RECORDS PERTAINING TO PATIENTS WHO ARE [...] BE BASED ON THE PRIMARY CLINICAL RECORDS. [facility]. provides no warranty or guarantee of the accuracy or completeness of information in this document.
[2025-01-14 13:20] LABS: CRP < 3.00 mg/L (0.0-3.0)
[2025-01-14 14:03] LABS: Erythrocyte Sedimentation Rate 6 mm/hr (0-30)
[2025-01-15 14:09] LABS: Lyme Scn Total Ab w/Rflx Negative (Negative)
[2025-01-18 15:08] LABS: EBV Acute VCA IgM < 36.0 U/mL (0.0-35.9); EBV Nuclear Antigen IgG < 18.0 U/mL (0.0-17.9); Immunoglobulin A 173 mg/dL (64-422); Immunoglobulin G 811 mg/dL (586-1602); Immunoglobulin M 140 mg/dL (26-217)
== END | disposition home or self-care (01) ==
LOC: MFPLAB 11:05
PROVIDERS: PCP Family Medicine; Referring Provider Family Medicine; Visit Provider Family Medicine
DX: Z01.89 Encounter for other specified special examinations (principal); W57.XXXA Bitten or stung by nonvenomous insect and other nonvenomous arthropods, initial encounter
CPT/HCPCS: 36415; 82784; 85652; 86140; 86334; 86618; 86664; 86665

== ENCOUNTER → 2025-01-13 | Outpatient (CLI) | payer MEDICARE, SELFPAY ==
--- NOTE | 2025-01-13 10:08 | BI_ITS ---
EXAM: SCRN MAMM (CAD)W/ELSIE BILAT 01/13/2025 CLINICAL HISTORY: F, Age 74 y/o , BREAST CANCER SCREEN TECHNIQUE: Bilateral screening digital breast tomosynthesis with 2D and 3D images. Computer aided detection. COMPARISON: Prior exam(s) dated 01/13/2024. FINDINGS: TISSUE DENSITY: The breast tissue is heterogenously dense, which may obscure small masses. The mammogram demonstrates that the patient has dense breasts. Supplemental screening with whole breast ultrasound or MRI may be considered for further evaluation. Bilateral Breast Mammographic Findings: No significant masses, calcifications or other abnormalities are identified. BI/SCRN MAMM (CAD)W/ELSIE BILAT IMPRESSION: Right Breast: BIRADS 1 NEGATIVE. Left Breast: BIRADS 1 NEGATIVE. OVERALL FINAL ASSESSMENT: BIRADS 1 NEGATIVE. RECOMMENDATION: Routine annual follow-up in 1 Year A letter with findings and recommendations will be mailed to the patient. Reading Location: [id number]
== END | disposition home or self-care (01) ==
LOC: OPBI 10:07
PROVIDERS: PCP Family Medicine; Referring Provider Family Medicine; Visit Provider Family Medicine
DX: Z12.31 Encounter for screening mammogram for malignant neoplasm of breast (principal)
CPT/HCPCS: 77063; 77067

== ENCOUNTER → 2025-01-19 | Outpatient (CLI) | payer MEDICARE, SELFPAY ==
[2025-01-19 20:32] LABS: Rheumatoid Factor < 10.0 IU/mL (<15)
[2025-01-22 13:08] LABS: ANTINUCLEAR ANTIBODIES DIRECT Negative (Negative); Anti-Histone Abs 2.6 Units (0.0-0.9); SJOGREN'S Anti-SS-A test < 0.2 AI (0.0-0.9); SJOGREN'S Anti-SS-B test < 0.2 AI (0.0-0.9)
[2025-01-22 15:08] LABS: Dilute Prothrombin Time (dPT) 42.6 sec (0.0-47.6); Dilute Russell Viper Venom 40.8 sec (0.0-47.0); Interpretation Comment: (.); PTT-LA 37.6 sec (0.0-43.5); Thrombin Time 19.1 sec (0.0-23.0); dPT Confirm Ratio 1.13 Ratio (0.00-1.34)
== END | disposition home or self-care (01) ==
LOC: MFPLAB 13:50
PROVIDERS: PCP Family Medicine; Referring Provider Family Medicine; Visit Provider Family Medicine
DX: M25.50 Pain in unspecified joint (principal); K21.9 Gastro-esophageal reflux disease without esophagitis
CPT/HCPCS: 36415; 86038; 86235; 86431

== ENCOUNTER → 2025-02-10 | Outpatient (CLI) | payer MEDICARE, SELFPAY ==
--- OUTSIDE RECORDS SUMMARY | 2025-02-10 07:02 | XMS RPT_ITS | CCD ---
Author Organization [facility] Care Team Providers Care Day Care Home Mother Name Role Phone Dipak Seth Primary Care Provider Nasreen Hutchins Unavailable Unavailable Dipak Seth Unavailable Unavailable Dipak Seth Lucinda Vizcarra Unavailable Unavailable Dipak Seth Primary Care Provider Dorinda, Dr. Dipak Mojica Primary Care Unavailbryce Hilario, Dr. Sammie Hernandez Attending Unava dave Ayoub, Ms. Ernestina Garcia Attending Unavail able Dorinda, Dr. Dipak Mojica Primary Care Unavaila ble Dorinda, Dr. Dipak Mojica Primary Care Unavaila ble Zackery, Ms. Lucinda Mtz Attending Unava ilable Dorinda, Dr. Dipak Mojica Primary Care Unavaila ble Dorinda, Dr. Dipak Mojica Attending Unavaila ble Fuentes, Dr. Sammie Hernandez Attending Unava ilable Dorinda, Dr. Dipak Mojica Primary Care Unavaila LOTTIE York Attending Unavail able TRANG CARR Primary Care Unavailable Trang Carr MD Primary Care Provider [phone] Trang Carr MD Primary Care Provider [phone] Trang Carr MD Primary Care Provider Fernyorrow FILM RENTAL CLERK-CAroldo Attending Provider Fernyorrow FILM RENTAL CLERK-CAroldo Referring Provider DARBY VELASCO Admitting Unavailable TRANG CARR Primary Care Unavailable ISABELLA DIXON Attending Unavailable TRANG CARR Primary Care Unavailable ROYER VICTORIA Attending Unavailable JERE COLON Admitting Unavailelizabeth e TRANG CARR Primary Care Unavailable JASON VIDALES Attending Unavailabl e [facility] Consulting MOLLY Brown Attending Unavailabl e COOPERRIDER, MOLLY Arana Referring Unavailabl e LILLY, CHALON Primary Care Unavailable MOLLY KIRBY Attending Unavailabl e SELF Referring Unavailable LILLY, CHALON Primary Care Unavailable MOLLY KIRBY Attending Unavailabl e COOPERRIDER, MOLLY Arana Referring Unavailabl e LILLY, CHALON Primary Care Unavailable Savanna MASON, Dr. Ambriz Attending Provider Savanna MASON, Dr. Ambriz Referring Provider Lilly MASON, Trang Attending Provider Lilly MASON, Trang Referring Provider Lilly, Chalon Referring Unavailable Lilly, Chalon Primary Care Unavailable Daniel Upton Attending Unavailable Lilly, Chalon Referring Unavailable Lilly, Chalon Primary Care Unavailable Daniel Upton Attending Unavailable MIHIR PÉREZ Attending Unavailable Lilly, Chalon Primary Care Unavailable McMorrow FILM RENTAL CLERK, Aroldo Attending Unavailable McMorrow FILM RENTAL CLERK, Aroldo Referring Unavailable Lilly, Chalon Primary Care Unavailable Lilly, Chalon Primary Care Unavailable Pb Corrales Attending Unavailabl e Pb Corrales Referring Unavailabl e Lilly, Chalon Attending Unavailable Lilly, Chalon Primary Care Unavailable Lilly, Chalon Referring Unavailable Lilly, Chalon Primary Care Unavailable Lilly, Chalon Attending Unavailable Lilly, Chalon Referring Unavailable Lilly, Chalon Primary Care Unavailable Lilly, Chalon Attending Unavailable Lilly, Chalon Referring Unavailable Lilly, Chalon Primary Care Unavailable Lilly, Chalon Attending Unavailable Lilly, Chalon Referring Unavailable Lilly, Chalon Primary Care Unavailable Lilly, Chalon Attending Unavailable Lilly, Chalon Attending Unavailable Lilly, Chalon Primary Care Unavailable Allergies Allergy Classification Reported Allergen(s) Allergy Type Date of Onset Reaction(s) Facility (2 sources) Ibandronate Drug Allergy Other [facility] (20 sources) Ibandronate; Translations: [IBANDRONATE] Drug Allergy 5 Other: See Comments, Anaphylaxis [facility] Comment on above: no appetite nauseous (1 source) Ibadronate Drug Allergy 4 [facility] Repository Medications Current Medications Medication Drug [...] aspirin 81 mg delayed release oral tablet (9 sources) Platelet Aggregation Inhibitor, Nonsteroidal Anti-inflammatory Drug Start: 07-31-2024 End: 08-30-2024 take 1 tablet by mouth once daily aspirin 81 MG EC tablet Take 1 (one) tablet (81 mg total) by mouth daily . 30 tablet 07/31/2024 08/30/2024 Active B COMPLEX & C NO.20-FOLIC ACID ORAL (4 sources) B COMPLEX & C NO.20-FOLIC ACID ORAL Take by mouth. Active B COMPLEX & C NO .20-FOLIC ACID ORAL Take by mouth. 0 Active Comment on above: Take by mouth. CALCIUM PHOSPHATE DIBAS/VIT D3 (VITAMIN D, WITH CALCIUM, ORAL) (4 sources) CALCIUM PHOSPHAT E DIBAS/VIT D3 (VITAMIN D, WITH CALCIUM, ORAL) Take by mouth. Active CALCIUM PHOSPHAT E DIBAS/VIT D3 (VITAMIN D, WITH CALCIUM, ORAL) Take by mouth. 0 Active Comment on above: Take by mouth. 12 hr cetirizine hydrochloride 5 mg / pseudoephedrine hydrochloride 120 mg extended release oral tablet (5 sources) alpha-Adrenergic Agonist, Histamine-1 Receptor Antagonist Start: End: 05-19-202 5 take 1 tablet by mouth twice daily cetirizine-pseud oePHEDrine (ZyrTEC-D) 5-120 mg per tablet Take 1 (one) tablet by mouth 2 (two) times a day . 60 tablet 11/28/2024 12/28/2024 Active cholecalciferol 0.125 mg oral capsule (14 sources) Vitamin D take 1 capsule by mouth once daily cholecalciferol, vitamin D3, 125 mcg (5,000 unit) capsule Take 1 (one) capsule (5,000 Units total) by mouth daily . Active Cholecalciferol, Vitamin D3, 125 mcg (5,000 unit) cap Take 2,000 Units by mouth. Active take 1 capsule by mouth once domingo ly cholecalciferol, vitamin D3, 125 mcg (5,000 unit) capsule Take 2,000 Units by mouth daily . 0 Active Comment on above: Take 2,000 Units by mouth. 1 ml denosumab 60 mg/ml prefilled syringe (18 sources) RANK Ligand Inhibitor Start: 04-23-2024 Denosumab (Denosumab 60 Mg/Ml Subcutaneous Syringe) 60 mg/mL syringe Active mg SC April 23, 2024 12:00am denosumab (Proli a) 60 mg/mL Syrg Inject 60 (sixty) mg under the skin every 6 (six) months . Active inject 60 mg by subc utaneous injection once denosumab (PROLIA) 60 mg/mL Inject 60 mg subcutaneously one time only. Active Comment on above: Inject 60 mg subcuta neously one time only. fluticasone propionate 0.05 mg/actuat metered dose nasal spray (7 sources) Corticosteroid Start: 5 End: 6 take 2 spray(s) nasal route once daily fluticasone propionate (FLONASE) 50 mcg/actuation nasal spray Instill 2 (two) sprays into each nostril daily . 16 g 11/28/2024 11/28/2025 Active lactobac cmb #8-fgq-kjojilwvzn 300-250 million cell-mg cap (4 sources) lactobac cmb #5-scj-ueblywvpfj 300-250 million cell-mg cap Take by mouth. Active lactobac cmb #3- fos-pantethine 300-250 million cell-mg cap Take by mouth. 0 Active Comment on above: Take by mouth. meloxicam 15 mg oral tablet (4 sources) Nonsteroidal Anti-inflammatory Drug Start: 0 meloxicam (MOBIC) 15 mg tablet 04/29/2020 Active metoprolol tartrate 25 mg oral tablet (10 sources) beta-Adrenergic Melvina Start: 5 End: 6 take 0.5 tablet by mouth twice daily as needed metoprolol tartrate (LOPRESSOR) 25 MG tablet Take 0.5 (one-half) tablet (12.5 mg total) by mouth 2 (two) times a day as needed . 30 tablet 12/04/2024 12/04/2025 Active Start: 07-31-2024 End: 07-31-2024 [...] IN PROCEDURE AREA ONLY MULTIVITAMIN WITH MINERALS ( MULTIVITAMIN & MINERAL FORMULA ORAL) (4 sources) MULTIVITAMIN WIT H MINERALS (MULTIVITAMIN & MINERAL FORMULA ORAL) Take by mouth. Active MULTIVITAMIN WIT H MINERALS (MULTIVITAMIN & MINERAL FORMULA ORAL) Take by mouth. 0 Active Comment on above: Take by mouth. Omeprazole (2 sources) Proton Pump Inhibitor PriLOSEC Quantity: 0 Refills: 0 Ordered: 28-Oct-2021 Poppy Joe Generic Substitution Allowed pantoprazole 40 mg delayed release oral tablet (18 sources) Proton Pump Inhibitor Start: 4 End: 4 take 1 tablet by mouth once daily Pantoprazole 40 mg tablet,delayed release (/EC) Active 40 mg PO DAILY April 23, 2024 12:00am pantoprazole DR (PROTONIX) 20 mg tablet Take 20 mg by mouth. Active rosuvastatin calcium 10 mg oral tablet (18 sources) HMG-CoA Reductase Inhibitor Start: 07-31-2024 End: [...] mg tablet Take 10 mg by mouth. Active statin (unknown) (1 source) sucralfate 1000 mg oral tablet (10 sources) Aluminum Complex Start: 07-31-20 End: 08-30-19 take 1 tablet by mouth four times daily before mealtime sucralfate (CARAFATE) 1 gram tablet Take 1 (one) tablet (1 g total) by mouth 4 (four) times a day before meals . 120 tablet 07/31/2024 Active traZODone hydrochloride 50 mg oral tablet (11 sources) Serotonin Reuptake Inhibitor Start: 07-30-20 End: 08-30-19 take 1 tablet by mouth once daily as needed for sleep traZODone (DESYREL) 50 MG tablet Take 1 (one) tablet (50 mg total) by mouth nightly as needed for sleep . 30 tablet 07/31/2024 Active vitamin b12 1 mg oral tablet (9 sources) Vitamin B12 take 1 tablet by mouth every other day cyanocobalamin (vitamin B-12) 1000 MCG tablet Take 1 (one) tablet (1,000 mcg total) by mouth every other day . Active Completed/Discontinued Medications Medication Drug Class(es) Dates Sig (Normalized) Sig (Original) acetaminophen 325 mg oral tablet (10 sources) Start: 07-30-2024 End: 07-31-2024 take 1 tablet by mouth every four hours as needed take 2 tablets by mo uth every six hours as needed for pain [...] First dose on Andreina 07/30/24 at 2215 1 ml atropine sulfate 1 [...] sources) Nitrate Vasodilator Start: 07-31-2024 End: 07-31-2024 Code/trauma/micehlle tion medication, Starting on Sat07/31/24 at 1015, Intra-Procedure Start: 07-30-2024 End: 07-31-2024 potassium bicarbonate 25 meq effervescent oral tablet (1 source) Start: 09-06-2019 End: 09-06-2019 potassium bicarbonate (K-LYTE) 25 MEQ disintegrating tablet 50 mEq proparacaine hydrochloride 5 mg/ml ophthalmic solution (2 sources) Local Anesthetic Start: 01-12-2025 End: 01-12-2025 proparacaine 0.5 % 1 drop (ALCAINE) Start: 01-12-2025 End: 01-12-2025 1 drop, BOTH EYES, ONCE, 1 d ose, On Sat01/12/25 at 1500, FOR THE EYE 1000 ml sodium chloride 9 mg/ml injection (2 sources) Start: 07-31-2024 End: 07-31-2024 take 25 mL intravenously every hour 25 mL/hr, Intravenous, Continuous, Starting on Sat07/31/24 at 0915, Pre-Procedure Start: 09-06-2019 End: 09-06-2019 sodium chloride 0.9% (NS) andrea pati 500 mL tropicamide 10 mg/ml ophthalmic solution (2 sources) Anticholinergic Start: 01-12-2025 End: 01-12-2025 tropicamide 1 % 1 drop (MYDRIACYL) Start: 01-12-2025 End: 01-12-2025 1 drop, BOTH EYES, ONCE, 1 d ose, On Sat01/12/25 at 1500, FOR THE EYE Problems Active Problems Problem Classification Problem Date Documented Date Episodic/Chronic Abdominal pain (4 sources) Right lower quadrant pain; Translations: [Right lower quadrant pain] Onset: 11-23-2022 Episodic Cardiac dysrhythmias (1 source) Cardiac arrhythmia; Translations: [Cardiac arrhythmia, unspecified cardiac arrhythmia type] Chronic Cardiac dysrhythmias (20 sources) Palpitations; Translations: [Tachycardia] Onset: 09-22-2019 09-22-2019 Episodic Cataract (4 sources) Bilateral senile combined form cataracts of eyes; Translations: [Combined forms of age-related cataract, bilateral] Onset: 05-06-2018 05-06-2018 Chronic Chronic ulcer of skin (6 sources) Non-pressure chronic ulcer of other part of left foot with fat layer exposed; Translations: [Skin ulcer of left foot with fat layer exposed] Onset: 07-17-2024 05-07-2024 Chronic Disorders of teeth and jaw (1 source) Jaw pain; Translations: [Jaw pain] Onset: 02-08-2025 Episodic Fluid and electrolyte disorders (1 source) Hypokalemia; Translations: [Hypokalemia] Episodic Headache; including migraine (1 source) Headache; including migraine; Translations: [Headache, unspecified] Onset: 01-24-2022 Inflammation; infection of eye (except that caused by tuberculosis or sexually transmitteddisease) (1 source) Squamous blepharitis; Translations: [Squamous blepharitis left eye, upper and lower eyelids] Episodic Nonspecific chest pain (20 sources) Chest discomfort; Translations: [Chest pain] Onset: 07-30-2024 09-22-2019 Episodic Nutritional deficiencies (1 source) Vitamin D deficiency, unspecified; Translations: [Vitamin D deficiency, unspecified] Onset: 04-21-2024 Chronic Open wounds of extremities (5 sources) Puncture wound of sole of foot; Translations: [Puncture wound without foreign body, left foot, initial encounter] 04-23-2024 Episodic Other connective tissue disease (1 source) Impingement syndrome of shoulder region; Translations: [Impingement syndrome, shoulder, right] Episodic Other connective tissue disease (5 sources) Foot pain; Translations: [Pain in left foot] 04-23-2024 Episodic Other ear and sense organ disorders (2 sources) Impacted cerumen, bilateral; Translations: [Impacted cerumen, bilateral] Onset: 11-28-2024 Episodic Other eye disorders (4 sources) Bilateral vitreous floaters; Translations: [Other vitreous opacities, bilateral] Onset: 05-06-2018 05-06-2018 Chronic Other eye disorders (1 source) Subconjunctival hemorrhage of left eye; Translations: [Conjunctival hemorrhage, left eye] 01-20-2024 Episodic Other eye disorders (1 source) Dry eyes; Translations: [Dry eye syndrome of bilateral lacrimal glands] 03-23-2024 Episodic Other non-traumatic joint disorders (1 source) Shoulder pain; Translations: [Shoulder pain, right] Episodic Other non-traumatic joint disorders (1 source) Pain in unspecified joint; Translations: [Pain in unspecified joint] Onset: 01-26-2025 Episodic Other screening for suspected conditions (not mental disorders or infectious disease) (6 sources) Encounter for screening mammogram for malignant [...] (1 source) Viral URI with cough 10-28-2021 Past or Other Problems Problem Classification Problem Date Documented Da te Episodic/Chronic Blindness and vision defects (18 sources) Myopia; Translations: [Myopia, unspecified eye] Onset: [...] Retinal detachments; defects; vascular occlusion; and retinopathy (4 sources) 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; Translations: [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, unspecified eye] Onset: 09-08-2014 09-08-2014 Episodic Urinary tract infections (1 source) Urinary tract infection, site not specified; Translations: [Urinary tract infection, site not specified] Onset: 11-05-2024 Episodic NEGATED: Highlighted row has not occurred!Residual codes; unclassified (16 sources) Disease Episodic Results Test Name Value Interpretation Reference Range Facility ANTINUCLEAR ANTIBODIES DIREC Ton 01-22-2025 JUJU,DIRECT Negative Normal Negative [facility] Comment on above: Result Comment: Perf ormed at: - [facility] [address] [id number] Career Specialist: Sergio Tovar PhD, Phone: [phone] Performed at: - [facility] [id number] Career Specialist: Amaya Ingram MD, Phone: [phone] Performed By: #### L 506.1000, L500.4050, L100.0100, L500.4100 #### [facility] [address] [place], [address] Anti-Histone Abson 5 ANTI-HISTONE AB 2.6 Units High 0.0-0.9 [facility] Comment on above: Result Comment: Nega tive <1.0 Weak Positive 1.0 - 1.5 Moderate Positive 1.6 - 2.5 Strong Positive >2.5 Performed By: #### L 506.1000, L500.4050, L100.0100, L500.4100 #### [facility] [address] [place], [address] Lupus Anticoagulant Compon 0 - aPTT Coag (Bld) [Time] 37.6 s Normal 0.0-43.5 [facility] Comment on above: Performed By: #### L 506.1000, L500.4050, L100.0100, L500.4100 #### [facility] [address] [place], [address] DILUTE PT (dPT) 42.6 sec Normal 0.0-47.6 [facility] Comment on above: Performed By: #### L 506.1000, L500.4050, L100.0100, L500.4100 #### [facility] [address] [place], [address] dPT Conf. Ratio 1.13 Ratio Normal 0.00-1.34 [facility] Comment on above: Performed By: #### L 506.1000, L500.4050, L100.0100, L500.4100 #### [facility] [address] [place], [address] DRVVT 40.8 sec Normal 0.0-47.0 [facility] Comment on above: Performed By: #### L 506.1000, L500.4050, L100.0100, L500.4100 #### [facility] [address] [place], [address] Interpretation Comment: Normal . [facility] Comment on above: Result Comment: No l upus anticoagulant was detected. Performed at: [address] [id number] Career Specialist: Amaya Ingram MD, Phone: [phone] Performed By: #### L 506.1000, L500.4050, L100.0100, L500.4100 #### [facility] [address] [place], [address] THROMBIN TIME 19.1 sec Normal 0.0-23.0 [facility] Comment on above: Performed By: #### L 506.1000, L500.4050, L100.0100, L500.4100 #### [facility] [address] [place], [address] Sjogren's Antibodies A/Bon 0 01-22-2025 ANTI-SS-A < 0.2 Normal 0.0-0.9 [facility] Comment on above: Performed By: #### L 506.1000, L500.4050, L100.0100, L500.4100 #### [facility] [address] [place], [address] ANTI-SS-B < 0.2 Normal 0.0-0.9 [facility] Comment on above: Performed By: #### L 506.1000, L500.4050, L100.0100, L500.4100 #### [facility] [address] [place], [address] Dilute Oscar's viper venom timeOrdered By: Trang Carr on 01-19-2025 dRVVT Coag (PPP) [Time] 40.8 s 0.0-47.0 [facility] Rheumatoid Factoron 01-20-20 25 RHEUMATOID FAC < 10.0 Normal <15 [facility] Comment on above: Performed By: #### L 506.1000, L500.4050, L100.0100, L500.4100 #### [facility] [address] [place], [address] Serum histone antibody assay (units/volume)Ordered By: Trang Carr on 01-19-2025 Histone Ab Qn (S) 2.6 Units High 0.0-0.9 [facility] Comment on above: Negative <1.0 Weak P ositive 1.0 - 1.5 Moderate Positive 1.6 - 2.5 Strong Positive >2.5 Serum rheumatoid factor dete ctionOrdered By: Trang Carr on 01-19-2025 Rheumatoid factor Ql (S) < 10.0 IU/mL <15 [facility] Thrombin timeOrdered By: Jeannine Carr on 01-19-2025 Thrombin time Coag (PPP) [Time] 19.1 sec 0.0-23.0 [facility] EBV Acute Prof IgG / IgMon 0 01-18-2025 EB Ab VCA, IgG 233.0 U/mL High 0.0-17.9 [facility] Comment on above: Order Comment: Order Date: 03/31/24 Order Info: [id number] - CBCD Result Comment: Nega tive <18.0 Equivocal 18.0 - 21.9 Positive >21.9 Performed By: #### L 506.1000, L500.4050, L100.0100, L500.4100 #### [facility] [address] [place], [address] EBV Ab VCA, IgM < 36.0 Normal 0.0-35.9 [facility] Comment on above: Order Comment: Order Date: 03/31/24 Order Info: [id number] - CBCD Result Comment: Nega tive <36.0 Equivocal 36.0 - 43.9 Positive >43.9 Performed By: #### L 506.1000, L500.4050, L100.0100, L500.4100 #### [facility] [address] [place], [address] EBV NuAg Ab,IgG < 18.0 Normal 0.0-17.9 [facility] Comment on above: Order Comment: Order Date: 03/31/24 Order Info: [id number] - CBCD Result Comment: Nega tive <18.0 Equivocal 18.0 - 21.9 Positive >21.9 Performed By: #### L 506.1000, L500.4050, L100.0100, L500.4100 #### [facility] [address] [place], [address] INTERPRETATION Comment Normal . [facility] Comment on above: Order Comment: Order Date: 03/31/24 Order Info: [id number] - CBCD Result Comment: EBV Interpretation Chart Fabian: Antibody Present + Antibody Absent - Interpretation VCA-IgM VCA-IgG EBNA-IgG No previous infection/ - - - Susceptible Primary infection (new + + - or recent) Past Infection +or- + + See comment below* + - - *Results indicate infection with EBV at some time however cannot predict the timing of the infection since antibodies to EBNA usually develop after primary infection or, alternatively, approximately 5-10% of patients with EBV never develop antibodies to EBNA. Performed at: [facility] [id number] Career Specialist: Sergio Tovar PhD, Phone: [phone] Performed By: #### L 506.1000, L500.4050, L100.0100, L500.4100 #### [facility] [address] [place], [place], [id number] Immunofixation, Serumon 06-0 MI RESULT,S Comment Normal . [facility] Comment on above: Order Comment: Order Date: 03/31/24 Order Info: [id number] - CBCD Result Comment: No m onoclonality detected. Performed By: #### L 506.1000, L500.4050, L100.0100, L500.4100 #### [facility] [address] [place], [address] IMMUNOGLOB A QN 173 mg/dL Normal 64-422 [facility] Comment on above: Order Comment: Order Date: 03/31/24 Order Info: [id number] - CBCD Performed By: #### L 506.1000, L500.4050, L100.0100, L500.4100 #### [facility] [address] [place], [address] IMMUNOGLOB G QN 811 mg/dL Normal 586-1602 [facility] Comment on above: Order Comment: Order Date: 03/31/24 Order Info: [id number] - CBCD Performed By: #### L 506.1000, L500.4050, L100.0100, L500.4100 #### [facility] [address] [place], [address] IMMUNOGLOB M QN 140 mg/dL Normal 26-217 [facility] Comment on above: Order Comment: Order Date: 03/31/24 Order Info: [id number]- - CBCD Performed By: #### L 506.1000, L500.4050, L100.0100, L500.4100 #### [facility] [address] [place], [place], [id number] Lyme Screen W/Reflex WBon LYME SCREEN Ab Negative Normal Negative [facility] Comment on above: Result Comment: Lyme antibodies not detected. Reflex testing is not indicated. No laboratory evidence of infection with B. burgdorferi (Lyme disease). Negative results may occur in patients recently infected (less than or equal to 14 days) with B. burgdorferi. If recent infection is suspected, repeat testing on a new sample collected in 7 to 14 days is recommended. Performed at: [address] [id number] Career Specialist: Sergio Tovar PhD, Phone: [phone] Performed By: #### L 506.1000, L500.4050, L100.0100, L500.4100 #### [facility] [address] [place], [place], [id number] CRPon 01-14-2025 C-REACTIVE PROT < 3.00 Normal 0.0-3.0 [facility] Comment on above: Order Comment: Order Date: 03/31/24 Order Info: [id number] - CBCD Performed By: #### L 506.1000, L500.4050, L100.0100, L500.4100 #### [facility] [address] [place], [address] Erythrocyte Sed Rateon 01-14 SED RATE 6 mm/hr Normal 0-30 [facility] Comment on above: Order Comment: Order Date: 03/31/24 Order Info: [id number] - CBCD Performed By: #### L 506.1000, L500.4050, L100.0100, L500.4100 #### [facility] [address] [place], [address] Breast imaging reportOrdered By: Vandana Osborn on 01-13-2025 Study report [facility] Imaging Services [address] [place] [address] SCRN MAMM (CAD)W/ELSIE BILAT MR#: [id number] Acct: [id number] Name: CHINMAY GRIMALDO Rep #: [id number] : 1950 F 74 From: Mi Osborn MD PCP: Dr. Trang Carr MD Status: REG CL I Study:SCRN MAMM (CAD)W/ELSIE BILAT Date of Exa m: 01/13/25 Exam# [id number] Ordering Dr: Jeannine Carr MD EXAM: SCRN MAMM (CAD)W/ELSIE BILAT 01/13/2025 CLINICAL HISTORY: F, Age 74 y/o , BREAST CANCER SCREEN TECHNIQUE: Bilateral screening digital breast tomosynthesis with 2D and 3D images. Computeraided detection. COMPARISON: Prior exam(s) dated 01/13/2024. FINDINGS: TISSUE DENSITY: The breast tissue is heterogenously dense, which may obscure small masses. The mammogram demonstrates that the patient has dense breasts. Supplemental screening with whole breast ultrasound or MRI may be considered for further evaluation. Bilateral Breast Mammographic Findings: No significant masses, calcifications or other abnormalities are identified. BI/SCRN MAMM (CAD)W/ELSIE BILAT IMPRESSION: Right Breast: BIRADS 1 NEGATIVE. Left Breast: BIRADS 1 NEGATIVE. OVERALL FINAL ASSESSMENT: BIRADS 1 NEGATIVE. RECOMMENDATION: Routine annual follow-up in 1 Year A letter with findings and recommendations will be mailed to the patient. Reading Location: [id number] CC: Dr. Trang Carr MD ~ Electron Beam Operator: Signed [facility] Erythrocyte sedimentation ra teOrdered By: Trang Carr on 01-13-2025 ESR (Bld) [Velocity] 6 mm/h 0-30 [facility] SCRN MAMM (CAD)W/ELSIE BILATo n 01-13-2025 SCRN MAMM (CAD)W/ELSIE BILAT [facility] Imaging Services [address], [place] [id number] SCRN MAMM (CAD)W/ELSIE BILAT MR#: [id number] Acct: [id number] Name: CHINMAY GRIMALDO Rep #: [id number] : 1950 F 74 From: Vandana Osborn MD PCP: Dr. Trang Carr MD Status: REG CLI Study: SCRN MAMM (CAD)W/ELSIE BILAT Date of Exam: 12/04 Exam# [id number] Ordering Dr: Trang Carr MD EXAM: SCRN MAMM (CAD)W/ELSIE BILAT 01/13/2025 CLINICAL HISTORY: F, Age 74 y/o , BREAST CANCER SCREEN TECHNIQUE: Bilateral screening digital breast tomosynthesis with 2D and 3D images. Computer aided detection. COMPARISON: Prior exam(s) dated 01/13/2024. FINDINGS: TISSUE DENSITY: The breast tissue is heterogenously dense, which may obscure small masses. The mammogram demonstrates that the patient has dense breasts. Supplemental screening with whole breast ultrasound or MRI may be considered for further evaluation. Bilateral Breast Mammographic Findings: No significant masses, calcifications or other abnormalities are identified. BI/SCRN MAMM (CAD)W/ELSIE BILAT IMPRESSION: Right Breast: BIRADS 1 NEGATIVE. Left Breast: BIRADS 1 NEGATIVE. OVERALL FINAL ASSESSMENT: BIRADS 1 NEGATIVE. RECOMMENDATION: Routine annual follow-up in 1 Year A letter with findings and recommendations will be mailed to the patient. Reading Location: [id number] CC: Dr. Trang Carr MD Electron Beam Operator: Signed Normal [facility] Serum Aquilino Welch virus cap desiree IgM antibody assay (units/volume)Ordered By: Trang Carr on 01-13-2025 EBV capsid IgM Qn (S) [arb'U]/mL 0.0-35.9 [facility] Comment on above: Negative <36.0 Equiv ocal 36.0 - 43.9 Positive >43.9 Serum Aquilino Welch virus nuc lear IgG antibody assay (units/volume)Ordered By: Trang Carr on 01-13-2025 EBV nuclear IgG Qn (S) < 18.0 U/mL 0.0-17.9 [facility] Comment on above: Negative <18.0 Equiv ocal 18.0 - 21.9 Positive >21.9 Serum or plasma C reactive p rotein measurement (mass/volume)Ordered By: Trang Carr on 01-13-2025 CRP [Mass/Vol] mg/L 0.0-3.0 [facility] Serum or plasma IgA measurem ent (mass/volume)Ordered By: [facility] on 01-13-2025 IgA [Mass/Vol] 173 mg/dL 64-422 [facility] Serum or plasma IgG measurem ent (mass/volume)Ordered By: Trang Carr on 01-13-2025 IgG [Mass/Vol] 811 mg/dL [phone] [facility] Culture, Throaton 12-06-2024 CUT Normal throat jeanine isolated. No beta-hemolytic streptococcus isolated. Normal [facility] Comment on above: Performed By: #### M 100.1000 #### [facility] [address] [place], [address] Throat specimen bacteria edith ntification by cultureOrdered By: Pb Corrales on 12-04-2024 Bacteria identified Cx Nom (Throat) streptococcus isolated. [facility] CBC WITH AUTO DIFFERENTIALon 11-28-2024 AUTO NRBC 0.0 % Normal [facility] Comment on above: Performed By: #### L [id number] #### [facility] [address] [address] Олег Wheeler M.D. [id number] AUTO NRBC ABS COUNT 0.00 K/mcL Normal 0.00-0.00 [facility] Comment on above: Performed By: #### L [id number] #### LAB [address] [address] Олег Wheeler M.D. [id number] BASOPHILS ABSOLUTE COUNT 0.03 K/mcL Normal 0.00-0.30 [facility] Comment on above: Performed By: #### L [id number] #### LAB [address] [address] Олег Wheeler M.D. [id number] Basophils/100 WBC (Bld) 0.6 % Normal [facility] Comment on above: Performed By: #### L [id number] #### LAB [address] [place] [address] Олег Wheeler M.D. [id number] Eosinophils (Bld) [#/Vol] 0.09 10*3/uL Normal 0.00-0.50 [facility] Comment on above: Performed By: #### L [id number] #### LAB [address] [place] [address] Олег Wheeler M.D. [id number] Eosinophils/100 WBC (Bld) 1.7 % Normal [facility] Comment on above: Performed By: #### L [id number] #### LAB [address] [place] [address] Олег Wheeler M.D. [id number] Erythrocyte distribution width (RBC) [Ratio] 13.2 % Normal 11.6-14.8 [facility] Comment on above: Performed By: #### L [id number] #### LAB [address] [place] [address] Олег Wheeler M.D. [id number] Hematocrit (Bld) [Volume fraction] 42.6 % Normal 36.0-46.0 [facility] Comment on above: Performed By: #### L [id number] #### LAB [address] [address] Олег Wheeler M.D. [id number] Hemoglobin (Bld) [Mass/Vol] 13.6 g/dL Normal 12.0-16.0 [facility] Comment on above: Performed By: #### L [id number] #### LAB [address] [address] Олег Wheeler M.D. [id number] IG ABSOLUTE 0.02 K/mcL Normal 0.00-0.30 [facility] Comment on above: Performed By: #### L [id number] #### LAB [address] [address] Олег Wheeler M.D. [id number] IG PERCENT 0.40 % Normal [facility] Comment on above: Result Comment: The IG parameter is the percentage of metamyelocytes, myelocytes and promyelocytes. An immature granulocyte count (IG) of 1% or more suggests the possibility of infection, an IG count of 3% is very likely related to an infection. Performed By: #### L [id number] #### LAB [address] [address] Олег Wheeler M.D. [id number] Lymphocytes (Bld) [#/Vol] 1.54 10*3/uL Normal 0.90-4.00 [facility] Comment on above: Performed By: #### L [id number] #### LAB [address] [address] Олег Wheeler M.D. [id number] Lymphocytes/100 WBC (Bld) 29.5 % Normal [facility] Comment on above: Performed By: #### L [id number] #### LAB [address] [address] Олег Wheeler M.D. [id number] MCH (RBC) [Entitic mass] 29.9 pg Normal 26.0-34.0 [facility] Comment on above: Performed By: #### L [id number] #### LAB [address] [address] Олег Wheeler M.D. [id number] MCV (RBC) [Entitic vol] 93.6 fL Normal 80.0-100.0 [facility] Comment on above: Performed By: #### L [id number] #### LAB [address] [address] Олег Wheeler M.D. [id number] MEAN CORPUSCULAR HEMOGLOBIN CONC 31.9 g/dL Normal 31.0-37.0 [facility] Comment on above: Performed By: #### L [id number] #### LAB [address] [address] Олег Wheeler M.D. [id number] Monocytes (Bld) [#/Vol] 0.41 10*3/uL Normal 0.30-0.90 [facility] Comment on above: Performed By: #### L [id number] #### LAB [address] [address] Олег Wheeler M.D. [id number] Monocytes/100 WBC (Bld) 7.9 % Normal [facility] Comment on above: Performed By: #### L [id number] #### LAB [address] [place] [address] Олег Wheeler M.D. [id number] NEUTROPHILS ABSOLUTE COUNT 3.13 K/mcL Normal 1.70-7.00 [facility] Comment on above: Performed By: #### L [id number] #### LAB [address] [address] Олег Wheeler M.D. [id number] Neutrophils/100 WBC (Bld) 59.9 % Normal [facility] Comment on above: Performed By: #### L [id number] #### LAB [address] [place] [address] Олег Wheeler M.D. [id number] Platelet mean volume (Bld) [Entitic vol] 10.2 fL Normal 9.4-12.4 [facility] Comment on above: Performed By: #### L [id number] #### LAB [address] [address] Олег Wheeler M.D. [id number] Platelets (Bld) [#/Vol] 241 10*3/uL Normal 150-400 [facility] Comment on above: Performed By: #### L [id number] #### [facility] [address] [address] Олег Wheeler M.D. [id number] RBC (Bld) [#/Vol] 4.55 10*6/uL Normal 4.00-5.20 [facility] Comment on above: Performed By: #### L [id number] #### [facility] [address] [address] Олег Wheeler M.D. [id number] WBC (Bld) [#/Vol] 5.22 10*3/uL Normal 4.50-11.00 [facility] Comment on above: Performed By: #### L [id number] #### [facility] [address] [address] Олег Wheeler M.D. [id number] COMPREHENSIVE METABOLIC PANE Thaddeus 11-28-2024 Albumin [Mass/Vol] 4.4 g/dL Normal 3.2-5.2 [facility] Comment on above: Order Comment: [facility] has implemented the eGFR calculation approach that does not have a coefficient for race that conforms to the NKF-ASN Task Force Recommendations. Performed By: #### 4 6126 ####[facility] LAB [address] [address] Олег Wheeler M.D. [id number] ALP [Catalytic activity/Vol] 70 U/L Normal 40-150 [facility] Comment on above: Order Comment: [facility] has implemented the eGFR calculation approach that does not have a coefficient for race that conforms to the NKF-ASN Task Force Recommendations. Performed By: #### 4 6126 ####[facility] [address] [address] Олег Wheeler M.D. [id number] ALT [Catalytic activity/Vol] 16 U/L Normal 0-35 U/L [facility] Comment on above: Order Comment: [facility] has implemented the eGFR calculation approach that does not have a coefficient for race that conforms to the NKF-ASN Task Force Recommendations. Performed By: #### 4 6126 #### LAB [address] [address] Олег Wheeler M.D. [id number] Anion gap [Moles/Vol] 16 mmol/L Normal 10-20 [facility] Comment on above: Order Comment: [facility] has implemented the eGFR calculation approach that does not have a coefficient for race that conforms to the NKF-ASN Task Force Recommendations. Performed By: #### 4 6126 #### LAB [address] [address] Олег Wheeler M.D. [id number] AST [Catalytic activity/Vol] 19 U/L Normal 0-35 U/L [facility] Comment on above: Order Comment: [facility] has implemented the eGFR calculation approach that does not have a coefficient for race that conforms to the NKF-ASN Task Force Recommendations. Performed By: #### 4 6126 #### LAB [address] [address] Олег Wheeler M.D. [id number] Bilirubin [Mass/Vol] 0.3 mg/dL Normal 0.0-1.3 [facility] Comment on above: Order Comment: [facility] has implemented the eGFR calculation approach that does not have a coefficient for race that conforms to the NKF-ASN Task Force Recommendations. Performed By: #### 4 6126 #### LAB [address] [address] Олег Wheeler M.D. [id number] Calcium [Mass/Vol] 9.9 mg/dL Normal 8.4-10.2 [facility] Comment on above: Order Comment: [facility] has implemented the eGFR calculation approach that does not have a coefficient for race that conforms to the NKF-ASN Task Force Recommendations. Performed By: #### 4 6126 #### LAB [address] [address] Олег Wheeler M.D. [id number] Chloride [Moles/Vol] 103 mmol/L Normal 98-108 [facility] Comment on above: Order Comment: [facility] has implemented the eGFR calculation approach that does not have a coefficient for race that conforms to the NKF-ASN Task Force Recommendations. Performed By: #### 4 6126 #### LAB [address] [address] Олег Wheeler M.D. [id number] Creatinine [Mass/Vol] 0.77 mg/dL Normal 0.60-1.10 [facility] Comment on above: Order Comment: [facility] has implemented the eGFR calculation approach that does not have a coefficient for race that conforms to the NKF-ASN Task Force Recommendations. Performed By: #### 4 6126 ####[facility] [address] [address] Олег Wheeler M.D. [id number] EGFR 82 mL/min/1.73 m2 Normal >=60 [facility] Comment on above: Order Comment: [facility] has implemented the eGFR calculation approach that does not have a coefficient for race that conforms to the NKF-ASN Task Force Recommendations. Result Comment: Jyothi mated GFR was calculated using the 2020 CKD-EPI creatinine equation. Performed By: #### 4 6126 #### LAB [address] [address] Олег Wheeler M.D. [id number] Glucose [Mass/Vol] 114 mg/dL High 65-99 [facility] Comment on above: Order Comment: [facility] has implemented the eGFR calculation approach that does not have a coefficient for race that conforms to the NKF-ASN Task Force Recommendations. Performed By: #### 4 6126 ####[facility] [address] [address] Олег Wheeler M.D. [id number] HCO3 (Bld) [Moles/Vol] 26 mmol/L Normal 21-32 [facility] Comment on above: Order Comment: [facility] has implemented the eGFR calculation approach that does not have a coefficient for race that conforms to the NKF-ASN Task Force Recommendations. Performed By: #### 4 6126 #### LAB [address] [address] Олег Wheeler M.D. [id number] Potassium [Moles/Vol] 3.9 mmol/L Normal 3.5-5.1 [facility] Comment on above: Order Comment: [facility] has implemented the eGFR calculation approach that does not have a coefficient for race that conforms to the NKF-ASN Task Force Recommendations. Performed By: #### 4 6126 #### LAB [address] [address] Олег Wheeler M.D. [id number] Protein [Mass/Vol] 6.6 g/dL Normal 6.0-8.0 [facility] Comment on above: Order Comment: [facility] has implemented the eGFR calculation approach that does not have a coefficient for race that conforms to the NKF-ASN Task Force Recommendations. Performed By: #### 4 6126 #### LAB [address] [address] Олег Wheeler M.D. [id number] Sodium [Moles/Vol] 141 mmol/L Normal 135-145 [facility] Comment on above: Order Comment: [facility] has implemented the eGFR calculation approach that does not have a coefficient for race that conforms to the NKF-ASN Task Force Recommendations. Performed By: #### 4 6126 #### LAB [address] [address] Олег Wheeler M.D. [id number] Urea nitrogen [Mass/Vol] 11 mg/dL Normal 8-25 [facility] Comment on above: Order Comment: [facility] has implemented the eGFR calculation approach that does not have a coefficient for race that conforms to the NKF-ASN Task Force Recommendations. Performed By: #### 4 6126 #### LAB [address] [address] Олег Wheeler M.D. [id number] Urea nitrogen/Creatinine [Mass ratio] 14.3 mg/mg Normal 10.0-20.0 [facility] Comment on above: Order Comment: [facility] has implemented the eGFR calculation approach that does not have a coefficient for race that conforms to the NKF-ASN Task Force Recommendations. Performed By: #### 4 6126 #### LAB [address] [place], [place] [address] Олег Wheeler M.D. [id number] COVID-19/INFLUENZA A,B MOLEC ULARon 11-28-2024 SARS-CoV-2 (COVID-19) Ab IA Ql SARS-COV-2 (AMY) Not Detected INFLUENZA A (AMY) Not Detected INFLUENZA B (AMY) Not Detected Normal Not Detected [facility] Comment on above: Performed By: #### L [id number] #### LAB [address] [place], [place] [address] Олег Wheeler M.D. [id number] CT SINUSon 11-28-2024 CT SINUS EXAMINATION: CT [...] Nov 28, 2024 10:07:52 AM EDT Normal [facility] Comment on above: Order Comment: Injur y/Trauma or Illness?:Illness/Other How long have you had these symptoms (acute/chronic)?:Chronic Reason for exam?:sinus pain and pressure in face and neck, pt states swollen glands in neck, per patient cannot get into ent for another 3 weeks Type of Exam?:Initial Additional signs and symptoms?:strep and mono negative ED Prov Noteon 11-28-2024 ED Prov Note ED PROVIDER NOTE [facility] EM[facility]GENCY [facility] NAME: Chinmay Grimaldo AGE: 73 y.o. : 1950 VISIT DATE: 11/28/2024 CSN: [id number] PCP: Trang Carr MD Chief Complaint Patient [...] MCH 29. (more content not included)... Normal [facility] TSH WITH REFLEX FREE T4on TSH Qn 1.32 m[IU]/L Normal 0.27-4.20 [facility] Comment on above: Performed By: #### 4 9443 ####[facility] LAB [address] [place], [place] [address] Олег Wheeler M.D. [id number] Heterophile Ab Ql (S)Ordered By: Aroldo Cespedes on 11-24-2024 Monoscreen Negative Negative [facility] [place] 11-24-2024 Monocytes (Bld) [#/Vol] Negative Normal Negative [facility] Comment on above: Order Comment: Order Date: 03/31/24 Order Info: [id number] - [id number] Performed By: #### L 506.1000, L500.4050, L100.0100, L500.4100 #### [facility] [address] [place], [address] Serum heterophile antibody d etectionOrdered By: Aroldo Cespedes on 11-24-2024 Heterophile Ab Ql (S) Negative Negative [facility] CCTA Heart (Outside Sales Advertising Executive bill acosta)on 07-31-2024 1. Total calcium score [...] Modifiers: No modifiers are present Exceptions: None Sensitive Object Coronary Computed Angiography Report Patient Name: Chinmay Grimaldo Age: 73 y.o. Requesting Physician: Darian Velasco CNP Interpreting Outside Sales Advertising Executive: Tara Ash MD Primary Care Physician: Trang [...] for age, gender and race/ethnicity-matched group per PERKINS database. Coronary Angiography: Left Main: The left [...] SEPARATE RADIOLOGY REPORT FOR THE NONCARDIAC FINDINGS Sensitive Object Radiology Study observation (narrative) [facility] CCTA Heart (Outside Sales Advertising Executive bill acosta)Ordered By: Tara Ash on 07-31-2024 [facility] Work Phone: CT CCTA HEART (RESOURCE MANAGER READ)on 07-31-2024 CT CCTA HEART (RESOURCE MANAGER READ) Coronary Computed Angiography Report Patient Name: Chinmay Grimaldo Age: 73 y.o. Requesting Physician: Darian Velasco CNP Interpreting Outside Sales Advertising Executive: Tara Ash MD Primary Care Physician: Trang [...] Image Quality: Good, No significant artifacts. 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 0.4mg [...] SatJul 31, 2024 11:23:55 AM EST Normal [facility] Comment on above: Order Comment: NPO s [...] score and CTA coronary protocol was utilized. Outside Sales Advertising Executive will interpret the CT calcium score and [...] for dedicated calcium score and cardiac evaluation. ST/pji Workstation ID: [id number] Dictated by: JV TOURE on SatJul 31, 2024 10:51:55 AM EST Transcribed by: RENETTA MACHUCA on SatJul 31, 2024 11:07:52 AM EST Finalized by: JV TOURE on SatJul 31, 2024 10:09:34 PM EST Normal [facility] Comment on above: Order Comment: NPO s tatus not required for this exam however caffeine should be minimized prior to exam. Injury/Trauma or Illness?:Illness/Other How long have you had these symptoms (acute/chronic)?:Acute Reason for exam?:Chest pain, supplemental read Type of Exam?:Subsequent/Follow-up Additional signs and symptoms?:. LIPID PANELon 07-31-2024 Cholesterol [Mass/Vol] 168 mg/dL Normal 100-199 [facility] Comment on above: Performed By: #### 4 6087 ####[facility] LAB [address] [address] Олег Wheeler M.D. [id number] Cholesterol in HDL [Mass/Vol] 75 mg/dL Normal 40-59 [facility] Comment on above: Performed By: #### 4 6087 #### LAB [address] [address] Олег Wheeler M.D. [id number] Cholesterol.total/Chol esterol in HDL [Mass ratio] 2.2 {ratio} Normal [facility] Comment on above: Result Comment: Fema le Cholesterol/HDL Ratio: Average risk: 4.4 1/2 average risk: 3.3 2 x average risk: 7.1 Performed By: #### 4 6087 #### LAB [address] [place], [place] [address] Олег Wheeler M.D. [id number] LDL CHOLESTEROL CALCULATED 80 mg/dL Normal 10-130 [facility] Comment on above: Result Comment: Dayanara cobbal Cholesterol Education Program Guidelines: LDL Cholesterol Optimal: <100 mg/dL Near Optimal/above Optimal: 100-129 mg/dL Borderline High: 130-159 mg/dL High: 160-189 mg/dL Very High: greater than or equal to 190 mg/dL Performed By: #### 4 6087 #### LAB [address] [place], [place] [address] Олег Wheeler M.D. [id number] NON HDL CHOL 93 mg/dL Normal [facility] Comment on above: Result Comment: Dayanara cobbmn Cholesterol Education Program Guidelines: NON HDL Cholesterol Desirable: <130 mg/dL Borderline High: 130-159 mg/dL High: 160-189 mg/dL Very High: > or = 190 mg/dL Performed By: #### 4 6087 #### LAB [address] [place], [place] [address] Олег Wheeler M.D. [id number] Triglyceride [Mass/Vol] 66 mg/dL Normal 30-150 [facility] Comment on above: Performed By: #### 4 6087 #### LAB [address] [place], [place] [address] Олег Wheeler M.D. [id number] Lipid 1996 panelon Cholesterol [Mass/Vol] 168 mg/dL 100 - 199 mg/dL [facility] Cholesterol in HDL [Mass/Vol] 75 mg/dL 40 - 59 mg/dL [facility] Cholesterol in LDL [Mass/Vol] 80 mg/dL 10 - 130 mg/dL [facility] Comment on above: National Cholesterol Education Program Guidelines: LDL Cholesterol Optimal: <100 mg/dL Near Optimal/above Optimal: 100-129 mg/dL Borderline High: 130-159 mg/dL High: 160-189 mg/dL Very High: greater than or equal to 190 mg/dL Cholesterol non HDL [Mass/Vol] 93 mg/dL [facility] Comment on above: National Cholesterol Education Program Guidelines: NON HDL Cholesterol Desirable: <130 mg/dL Borderline High: 130-159 mg/dL High: 160-189 mg/dL Very High: > or = 190 mg/dL Cholesterol.total/Chol esterol in HDL [Mass ratio] 2.2 {ratio} ratio [facility] Comment on above: Female Cholesterol/H DL Ratio: Average risk: 4.4 1/2 average risk: 3.3 2 x average risk: 7.1 Triglyceride [Mass/Vol] 66 mg/dL 30 - 150 mg/dL [facility] TROPONINon 07-31-2024 TROPONIN T DELTA CHANGE INTERPRETATION No biomarker evidence of cardiac injury. Normal [facility] Comment on above: Performed By: #### 4 6608 ####[facility] [address] [place], [place] [address] Олег Wheeler M.D. [id number] TROPONIN T NG/L < Normal <=14 [facility] Comment on above: Performed By: #### 4 6608 ####[facility] [address] [place], [place] [address] Олег Wheeler M.D. [id number] Troponinon 07-31-2024 Interp Troponin T Delta Change No biomarker evidence of cardiac injury. [facility] Troponin T ng/L NINF - 14 ng/L [facility] BNP (NT Pro BNP)on 4 Natriuretic peptide.B prohormone N-Terminal [Mass/Vol] 89 pg/mL 0 - 300 pg/mL [facility] CBC Auto Differentialon 07-12 Basophils (Bld) [#/Vol] 0.03 10*3/uL [facility] Basophils/100 WBC (Bld) 0.5 % [facility] Eosinophils (Bld) [#/Vol] 0.02 10*3/uL [facility] Eosinophils/100 WBC (Bld) 0.4 % [facility] Erythrocyte distribution width (RBC) [Entitic vol] 13.3 % 11.6 - 14.8 % [facility] Hematocrit (Bld) [Volume fraction] 39.7 % 36.0 - 46.0 % [facility] Hemoglobin (Bld) [Mass/Vol] 12.7 g/dL 12.0 - 16.0 g/dL [facility] Immature granulocytes (Bld) [#/Vol] 0.03 10*3/uL [facility] Immature granulocytes/100 WBC (Bld) 0.5 % [facility] Comment on above: The IG parameter is the percentage of metamyelocytes, myelocytes and promyelocytes. An immature granulocyte count (IG) of 1% or more suggests the possibility of infection, an IG count of 3% is very likely related to an infection. Lymphocytes (Bld) [#/Vol] 1.07 10*3/uL [facility] Lymphocytes/100 WBC (Bld) 18.9 % [facility] MCH (RBC) [Entitic mass] 29.5 pg 26.0 - 34.0 pg [facility] MCHC (RBC) [Mass/Vol] 32 g/dL 31.0 - 37.0 g/dL [facility] MCV (RBC) [Entitic vol] 92.3 fL 80.0 - 100.0 fL [facility] Monocytes (Bld) [#/Vol] 0.4 10*3/uL [facility] Monocytes/100 WBC (Bld) 7.1 % [facility] Neutrophils (Bld) [#/Vol] 4.11 10*3/uL [facility] Neutrophils/100 WBC (Bld) 72.6 % [facility] Nucleated RBC (Bld) [#/Vol] 0 10*3/uL [facility] Nucleated RBC/100 WBC (Bld) [Ratio] 0 % [facility] Platelet mean volume (Bld) [Entitic vol] 10 fL 9.4 - 12.4 fL [facility] Platelets (Bld) [#/Vol] 224 10*3/uL [facility] RBC (Bld) [#/Vol] 4.3 10*6/uL [facility] alth WBC (Bld) [#/Vol] 5.66 10*3/uL [facility] ealth [facility] CBC WITH AUTO DIFFERENTIALon 07-30-2024 AUTO NRBC 0.0 % [facility] Comment on above: Performed By: #### L [id number] #### LAB [address] [address] Олег Wheeler M.D. [id number] AUTO NRBC ABS COUNT 0.00 K/mcL Normal 0.00-0.00 [facility] Comment on above: Performed By: #### L [id number] ####[facility] [address] [place], [place] [address] Олег Wheeler M.D. [id number] BASOPHILS ABSOLUTE COUNT 0.03 K/mcL Normal 0.00-0.30 [facility] Comment on above: Performed By: #### L [id number] ####[facility] [address] [place], [place] [address] Олег Wheeler M.D. [id number] Basophils/100 WBC (Bld) 0.5 % [facility] Comment on above: Performed By: #### L [id number] #### LAB [address] [address] Олег Wheeler M.D. [id number] Eosinophils (Bld) [#/Vol] 0.02 10*3/uL Normal 0.00-0.50 [facility] Comment on above: Performed By: #### L [id number] #### LAB [address] [address] Олег Wheeler M.D. [id number] Eosinophils/100 WBC (Bld) 0.4 % Normal [facility] Comment on above: Performed By: #### L [id number] #### LAB [address] [address] Олег Wheeler M.D. [id number] Erythrocyte distribution width (RBC) [Ratio] 13.3 % Normal 11.6-14.8 [facility] Comment on above: Performed By: #### L [id number] #### LAB [address] [address] Олег Wheeler M.D. [id number] Hematocrit (Bld) [Volume fraction] 39.7 % Normal 36.0-46.0 [facility] Comment on above: Performed By: #### L [id number] #### LAB [address] [address] Олег Wheeler M.D. [id number] Hemoglobin (Bld) [Mass/Vol] 12.7 g/dL Normal 12.0-16.0 [facility] Comment on above: Performed By: #### L [id number] #### LAB [address] [address] Олег Wheeler M.D. [id number] IG ABSOLUTE 0.03 K/mcL Normal 0.00-0.30 [facility] Comment on above: Performed By: #### L [id number] #### LAB [address] [address] Олег Wheeler M.D. [id number] IG PERCENT 0.50 % Normal [facility] Comment on above: Result Comment: The IG parameter is the percentage of metamyelocytes, myelocytes and promyelocytes. An immature granulocyte count (IG) of 1% or more suggests the possibility of infection, an IG count of 3% is very likely related to an infection. Performed By: #### L [id number] #### LAB [address] [place] [address] Олег Wheeler M.D. [id number] Lymphocytes (Bld) [#/Vol] 1.07 10*3/uL Normal 0.90-4.00 [facility] Comment on above: Performed By: #### L [id number] #### LAB [address] [place] [address] Олег Wheeler M.D. [id number] Lymphocytes/100 WBC (Bld) 18.9 % Normal [facility] Comment on above: Performed By: #### L [id number] #### LAB [address] [place] [address] Олег Wheeler M.D. [id number] MCH (RBC) [Entitic mass] 29.5 pg Normal 26.0-34.0 [facility] Comment on above: Performed By: #### L [id number] #### LAB [address] [place] [address] Олег Wheeler M.D. [id number] MCV (RBC) [Entitic vol] 92.3 fL Normal 80.0-100.0 [facility] Comment on above: Performed By: #### L SE6553 #### LAB [address] [place] [address] Олег Wheeler M.D. [id number] MEAN CORPUSCULAR HEMOGLOBIN CONC 32.0 g/dL Normal 31.0-37.0 [facility] Comment on above: Performed By: #### L [id number] #### LAB [address] [place] [address] Олег Wheeler M.D. [id number] Monocytes (Bld) [#/Vol] 0.40 10*3/uL Normal 0.30-0.90 [facility] Comment on above: Performed By: #### L [id number] #### LAB [address] [address] Олег Wheeler M.D. [id number] Monocytes/100 WBC (Bld) 7.1 % Normal [facility] Comment on above: Performed By: #### L [id number] #### LAB [address] [address] Олег Wheeler M.D. [id number] NEUTROPHILS ABSOLUTE COUNT 4.11 K/mcL Normal 1.70-7.00 [facility] Comment on above: Performed By: #### L [id number] #### LAB [address] [address] Олег Wheeler M.D. [id number] Neutrophils/100 WBC (Bld) 72.6 % Normal [facility] Comment on above: Performed By: #### L [id number] #### LAB [address] [address] Олег Wheeler M.D. [id number] Platelet mean volume (Bld) [Entitic vol] 10.0 fL Normal 9.4-12.4 [facility] Comment on above: Performed By: #### L [id number] #### LAB [address] [address] Олег Wheeler M.D. [id number] Platelets (Bld) [#/Vol] 224 10*3/uL Normal 150-400 [facility] Comment on above: Performed By: #### L [id number] #### LAB [address] [address] Олег Wheeler M.D. [id number] RBC (Bld) [#/Vol] 4.30 10*6/uL Normal 4.00-5.20 [facility] Comment on above: Performed By: #### L [id number] #### LAB [address] [address] Олег Wheeler M.D. [id number] WBC (Bld) [#/Vol] 5.66 10*3/uL Normal 4.50-11.00 [facility] Comment on above: Performed By: #### L [id number] #### LAB [address] [address] Олег Wheeler M.D. [id number] COMPREHENSIVE METABOLIC PANE Thaddeus 07-30-2024 Albumin [Mass/Vol] 4.7 g/dL Normal 3.2-5.2 [facility] Comment on above: Order Comment: [facility] has implemented the eGFR calculation approach that does not have a coefficient for race that conforms to the NKF-ASN Task Force Recommendations. Performed By: #### 4 6126 #### LAB [address] [address] Олег Wheeler M.D. [id number] ALP [Catalytic activity/Vol] 80 U/L Normal 40-150 [facility] Comment on above: Order Comment: [facility] has implemented the eGFR calculation approach that does not have a coefficient for race that conforms to the NKF-ASN Task Force Recommendations. Performed By: #### 4 6126 #### LAB [address] [address] Олег Wheeler M.D. [id number] ALT [Catalytic activity/Vol] 10 U/L Normal 0-35 U/L [facility] Comment on above: Order Comment: [facility] has implemented the eGFR calculation approach that does not have a coefficient for race that conforms to the NKF-ASN Task Force Recommendations. Performed By: #### 4 6126 #### LAB [address] [address] Олег Wheeler M.D. [id number] Anion gap [Moles/Vol] 13 mmol/L Normal 10-20 [facility] Comment on above: Order Comment: [facility] has implemented the eGFR calculation approach that does not have a coefficient for race that conforms to the NKF-ASN Task Force Recommendations. Performed By: #### 4 6126 #### LAB [address] [address] Олег Wheeler M.D. [id number] AST [Catalytic activity/Vol] 18 U/L Normal 0-35 U/L [facility] Comment on above: Order Comment: [facility] has implemented the eGFR calculation approach that does not have a coefficient for race that conforms to the NKF-ASN Task Force Recommendations. Performed By: #### 4 6126 #### LAB [address] [place], [place] [address] Олег Wheeler M.D. [id number] Bilirubin [Mass/Vol] 0.2 mg/dL Normal 0.0-1.3 [facility] Comment on above: Order Comment: [facility] has implemented the eGFR calculation approach that does not have a coefficient for race that conforms to the NKF-ASN Task Force Recommendations. Performed By: #### 4 6126 #### LAB [address] [address] Олег Wheeler M.D. [id number] Calcium [Mass/Vol] 9.9 mg/dL Normal 8.4-10.2 [facility] Comment on above: Order Comment: [facility] has implemented the eGFR calculation approach that does not have a coefficient for race that conforms to the NKF-ASN Task Force Recommendations. Performed By: #### 4 6126 #### LAB [address] [address] Олег Wheeler M.D. [id number] Chloride [Moles/Vol] 104 mmol/L Normal 98-108 [facility] Comment on above: Order Comment: [facility] has implemented the eGFR calculation approach that does not have a coefficient for race that conforms to the NKF-ASN Task Force Recommendations. Performed By: #### 4 6126 #### LAB [address] [address] Олег Wheeler M.D. [id number] Creatinine [Mass/Vol] 0.73 mg/dL Normal 0.60-1.10 [facility] Comment on above: Order Comment: [facility] has implemented the eGFR calculation approach that does not have a coefficient for race that conforms to the NKF-ASN Task Force Recommendations. Performed By: #### 4 6126 #### LAB [address] [id number] Олег Wheeler M.D. [id number] EGFR 87 mL/min/1.73 m2 Normal >=60 [facility] Comment on above: Order Comment: [facility] has implemented the eGFR calculation approach that does not have a coefficient for race that conforms to the NKF-ASN Task Force Recommendations. Result Comment: Jyothi mated GFR was calculated using the 2020 CKD-EPI creatinine equation. Performed By: #### 4 6126 #### LAB [address] [address] Олег Wheeler M.D. [id number] Glucose [Mass/Vol] 106 mg/dL High 65-99 [facility] Comment on above: Order Comment: [facility] has implemented the eGFR calculation approach that does not have a coefficient for race that conforms to the NKF-ASN Task Force Recommendations. Performed By: #### 4 6126 #### LAB [address] [address] Олег Wheeler M.D. [id number] HCO3 (Bld) [Moles/Vol] 28 mmol/L Normal 21-32 [facility] Comment on above: Order Comment: [facility] has implemented the eGFR calculation approach that does not have a coefficient for race that conforms to the NKF-ASN Task Force Recommendations. Performed By: #### 4 6126 #### LAB [address] [address] Олег Wheeler M.D. [id number] Potassium [Moles/Vol] 3.8 mmol/L Normal 3.5-5.1 [facility] Comment on above: Order Comment: [facility] has implemented the eGFR calculation approach that does not have a coefficient for race that conforms to the NKF-ASN Task Force Recommendations. Performed By: #### 4 6126 ####[facility] LAB [address] [address] Олег Wheeler M.D. [id number] Protein [Mass/Vol] 7.3 g/dL Normal 6.0-8.0 [facility] Comment on above: Order Comment: [facility] has implemented the eGFR calculation approach that does not have a coefficient for race that conforms to the NKF-ASN Task Force Recommendations. Performed By: #### 4 6126 #### LAB [address] [place], [place] [address] Олег Wheeler M.D. [id number] Sodium [Moles/Vol] 141 mmol/L Normal 135-145 [facility] Comment on above: Order Comment: [facility] has implemented the eGFR calculation approach that does not have a coefficient for race that conforms to the NKF-ASN Task Force Recommendations. Performed By: #### 4 6126 #### LAB [address] [address] Олег Wheeler M.D. [id number] Urea nitrogen [Mass/Vol] 12 mg/dL Normal 8-25 [facility] Comment on above: Order Comment: [facility] has implemented the eGFR calculation approach that does not have a coefficient for race that conforms to the NKF-ASN Task Force Recommendations. Performed By: #### 4 6126 #### LAB [address] [place], [place] [address] Олег Wheeler M.D. [id number] Urea nitrogen/Creatinine [Mass ratio] 16.4 mg/mg Normal 10.0-20.0 [facility] Comment on above: Order Comment: [facility] has implemented the eGFR calculation approach that does not have a coefficient for race that conforms to the NKF-ASN Task Force Recommendations. Performed By: #### 4 6126 #### LAB [address] [place], [place] [address] Олег Wheeler M.D. [id number] Comprehensive metabolic 2000 panelon 07-30-2024 Albumin [Mass/Vol] 4.7 g/dL 3.2 - 5.2 g/dL [facility] ALP [Catalytic activity/Vol] 80 U/L 40 - 150 U/L [facility] ALT [Catalytic activity/Vol] 10 U/L 0-35 U/L [facility] Anion gap [Moles/Vol] 13 mmol/L 10 - 2 0 mmol/L [facility] AST [Catalytic activity/Vol] 18 U/L 0-35 U/L [facility] Bilirubin [Mass/Vol] 0.2 mg/dL 0.0 - 1 .3 mg/dL [facility] Calcium [Mass/Vol] 9.9 mg/dL 8.4 - 10. 2 mg/dL [facility] Chloride [Moles/Vol] 104 mmol/L 98 - 10 8 mmol/L [facility] Creatinine [Mass/Vol] 0.73 mg/dL 0.60 - 1.10 mg/dL [facility] GFR/1.73 sq M.predicted CKD-EPI (S/P/Bld) [Vol rate/Area] 87 - PINF [facility] Comment on above: Estimated GFR was ca lculated using the 2020 CKD-EPI creatinine equation. Glucose [Mass/Vol] 106 mg/dL High 65 - 99 mg/dL [facility] HCO3 [Moles/Vol] 28 mmol/L 21 - 32 mmol/L [facility] Interpretation and review of laboratory results Abnormal [facility] Potassium [Moles/Vol] 3.8 mmol/L 3.5 - 5.1 mmol/L [facility] Protein [Mass/Vol] 7.3 g/dL 6.0 - 8.0 g/dL [facility] Sodium [Moles/Vol] 141 mmol/L 135 - 145 mmol/L [facility] Urea nitrogen [Mass/Vol] 12 mg/dL 8 - 25 mg/dL [facility] Urea nitrogen/Creatinine [Mass ratio] 16.4 mg/mg 10.0 - 20.0 [facility] has implemented the eGFR calculation approach that does not have a coefficient for race that conforms to the NKF-ASN Task Force Recommendations. [facility] D-DIMER, QUANTITATIVEon 07-12 D-DIMER QUANTITATIVE < Normal 0.27-0.49 [facility] Comment on above: Order Comment: A D-d [...] By: #### 4 5434 ####[facility] LAB [address] [place], [place] [address] Олег Wheeler M.D. [id number] D-DimerOrdered By: Anna brooks on 07-30-2024 Fibrin D-dimer FEU (PPP) [Mass/Vol] [facility] Interpretation and review of laboratory results Normal [facility] A D-dimer concentrat ion of <0.5 micrograms per milliliter FEU is considered a low probability for pulmonary embolus (PE) and deep venous thrombosis (DVT). Results of this test should always be interpreted in conjunction with the patient's medical history,clinical presentation, and other findings. Clinical diagnosis should not be based on the results of the D-dimer alone. [facility] ED Prov Noteon 07-30-2024 ED Prov Note [facility] ED note NAME: Chinmay Grimaldo 73 y.o. CSN: [id number] PCP: Trang Carr MD History: Chief Complaint: [...] with her PCP. Denies history of CAD [place] PE pneumothorax she said about 15 years [...] (*) All (more content not included)... Normal [facility] EKGon 07-30-2024 [facility] EKG 12-leadon 07-30-2024 Atrial Rate 75 BPM [facility] P Toponas 65 degrees [facility] P-R Interval 148 ms [facility] Q-T Interval 368 ms [facility] QRS Duration 84 ms [facility] QTC Calculation (Bezet) 410 ms [facility] R Toponas 45 degrees [facility] T Toponas 56 degrees [facility] Ventricular Rate [address] [facility] Yisel Josue MD 07/31/2024 10:04 AM EKG 12-lead Date/Time: 07/30/2024 7:36 PM Performed by: Yisel Josue MD Authorized by: Yisel Josue MD Interpreted by ED attending physician Rhythm: sinus rhythm BPM: 75 Conduction: conduction normal ST Segments: ST segments normal T Waves: T waves normal Clinical impression: non-specific ECG Comments: EKG with normal sinus rhythm rate of 75 beats per minutes VT interval 148 ms QRS duration 84 ms QTc [address]-T wave abnormalities. MUSE [facility] H AND Conor 07-30-2024 H AND P [...] to monitor and adjust care as needed. [facility] HISTORY AND PHYSICAL -- [facility] Patient Name: Chinmay Grimaldo : 1950 MR #: [id number] Admit Date: 07/30/2024 Physicians: Trang Carr MD (Family); No ref. provider found (Referring) Chinmay Grimaldo is a 73 y.o. female patient of Trang Carr MD with history of GERD who presented to [facility] on 07/30/2024 with chest pain. Chest pain [...] with history of GERD who presented to [facility] on 07/30/2024 with chest pain. Pt stated she started having chest pain earlier today. She was unable to describe the pain, just described it as a sensation in the left side of her chest. It did not worsen with activity or improve with rest. Did not change with deep inspiration. She went to [facility] for further evaluation. EKG unremarkable. CXR [...] coloration Psych: (more content not included)... Normal [facility] LIPASEon 07-30-2024 Lipase [Catalytic activity/Vol] 42 U/L Normal 15-65 [facility] Comment on above: Performed By: #### 4 6086 #### LAB [address] [place], [place] [address] Олег Wheeler M.D. [id number] Light Blue Topon 07-30-2024 Extra Tube Hold for add-ons. [facility] Comment on above: Auto resulted. [facility] Lipaseon 07-30-2024 Lipase [Catalytic activity/Vol] 42 U/L 15 - 65 U/L [facility] NT PRO BNPon 07-30-2024 Natriuretic peptide B (Bld) [Mass/Vol] 89 pg/mL Normal 0-300 [facility] Comment on above: Order Comment: Pride Study Cut-offsRule In:< /= 50 Years >450 pg/mL51 Years - 75 Years >900 pg/mL76 Years - 99 Years >1800 pg/mLRule Out:All patients <300 pg/mL Performed By: #### 4 7395 #### LAB [address] [place], [place] [address] Олег Wheeler M.D. [id number] Natriuretic peptide.B prohor robby N-Terminal [Mass/Vol]on 07-30-2024 Pride Study Cut-offs Rule In: < /= 50 Years >450 pg/mL 51 Years - 75 Years >900 pg/mL 76 Years - 99 Years >1800 pg/mL Rule Out: All patients <300 pg/mL [facility] No Panel Informationon 07-30 Interpretation and review of laboratory results Normal [facility] TROPONINon 07-30-2024 TROPONIN T DELTA CHANGE INTERPRETATION No biomarker evidence of cardiac injury. Normal [facility] Comment on above: Performed By: #### 4 6608 #### LAB [address] [address] Олег Wheeler M.D. [id number] TROPONIN T NG/L < Normal <=14 [facility] Comment on above: Performed By: #### 4 6608 #### LAB [address] [address] Олег Wheeler M.D. [id number] BASELINE TROPONIN T NG/L < Normal <=14 [facility] Comment on above: Performed By: #### 4 6608 #### LAB [address] [address] Олег Wheeler M.D. [id number] TROPONIN T INTERPRETATION Normal Normal [facility] Comment on above: Performed By: #### 4 6608 #### LAB [address] [address] Олег Wheeler M.D. [id number] Troponinon 07-30-2024 Interp Troponin T Delta Change No biomarker evidence of cardiac injury. [facility] Troponin T ng/L NINF - 14 ng/L [facility] Troponin x 2 (Now and Repeat in 3 hours)Ordered By: Adrienne Dolan on 07-30-2024 Troponin T ng/L NINF - 14 ng/L [facility] Troponin T Interpretation Normal [facility] XR CHEST PA/APon 07-30-2024 XR CHEST PA/AP EXAMINATION: 1 VIEW XR CHEST PA/AP, 07/30/2024 COMPARISON: Chest, 09/06/2019 HISTORY: Injury/Trauma or Illness?:Illness/Other How long have you had these symptoms (acute/chronic)?:Acute chest pain IMPRESSION: 1. Minimal linear atelectasis or scarring in the left lower lung zone. 2. Normal heart size. 3. No acute osseous abnormality. [employer] Workstation ID: [id number] Dictated by: ROSINA SPEARS on SatJul 30, 2024 8:43:50 PM EST Transcribed by: DAWSON MILES on SatJul 30, 2024 8:59:38 PM EST Finalized by: ROSINA SPEARS on SatJul 30, 2024 9:41:06 PM EST Normal [facility] Comment on above: Order Comment: Injur y/Trauma or Illness?:Illness/Other How long have you had these symptoms (acute/chronic)?:Acute Reason for exam?:chest pain History of cancer?:U Surgeries, chemotherapy, or radiation?:U Type of Exam?:Initial Additional signs and symptoms?:n XR Chest PA and Abdomen APon 07-30-2024 1. Minimal linear atelectasis or scarring in the left lower lung zone. 2. Normal heart size. 3. No acute osseous abnormality. [employer] Workstation ID: [id number] GE RIS EXAMINATION: 1 [...] acute osseous abnormality. [employer] Workstation ID: [id number] [facility] Radiology Study observation (narrative) [facility] XR Chest PA and Abdomen APOr dered By: Rosina Spears on 07-30-2024 [facility] Work Phone: Urine Cultureon 06-20-2024 URC Culture exhibits no growth. Normal [facility] Comment on above: Performed By: #### M 100.2200 #### [facility] [address] [place], [address] Wound Ctr History AND Physic porfirio 04-23-2024 Wound Ctr History & Physical [facility] [address] [place] [address] H P Exam - Wound Care 04/23/24 1058 MR#: [id number] Acct: [id number] Name: CHINMAY GRIMALDO Rep #: [id number] : 1950 73 From: Daniel Upton DPM PCP: Dr. Trang Carr MD Status:REG RCR Location: History of Present Illness Date of [...] that the area surrounding the puncture is door tender but it does appear to be healing. [...] (From Allergy sore throat Verified 04/23/24 10:24 Bonrishabh) ROS Constitutional Constitutional: Denies anorexia, chills or [...] was completed: (more content not included)... Normal [facility] Hemoglobin A1con 04-08-2024 HbA1c (Bld) [Mass fraction] 5.6 % Normal 3.8-5.6 [facility] Comment on above: Order Comment: Order Date: 04/08/24 Order Info: [id number] - A1C Result Comment: Norm al < 5.7 % Prediabetic 5.7 - 6.4 % Diabetic >or= 6.5 % Please note range changes. Performed By: #### L 501.1179 #### [facility] [address] [place], [place], [id number] Vitamin B12on 04-08-2024 Cobalamin (Vitamin B12) [Mass/Vol] 621 pg/mL Normal 211-911 [facility] Comment on above: Order Comment: Order Date: 04/08/24 Order Info: 2132-9 - B12 Performed By: #### L 503.0105 #### [facility] [address] [place], [place], [id number] CBC W/Diff, Automatedon 03-13 Absolute Lymph 1.09 X10 3/uL Normal 0.83-4.51 [facility] Comment on above: Order Comment: Order Date: 03/31/24 Order Info: 0184-1 - CBCD Performed By: #### L 506.1000, L500.4050, L100.0100, L500.4100 #### [facility] [address] [place], [address] Absolute Neut 3.4 X10 3/uL Normal 2.0-7.7 [facility] Comment on above: Order Comment: Order Date: 03/31/24 Order Info: 0184-1 - CBCD Performed By: #### L 506.1000, L500.4050, L100.0100, L500.4100 #### [facility] [address] [place], [address] Basophils/100 WBC (Bld) 0.5 % Normal 0-1 [facility] Comment on above: Order Comment: Order Date: 03/31/24 Order Info: 0184- - CBCD Performed By: #### L 506.1000, L500.4050, L100.0100, L500.4100 #### [facility] [address] [place], [address] Eosinophils/100 WBC (Bld) 8.8 % High 0-5 [facility] Comment on above: Order Comment: Order Date: 03/31/24 Order Info: 0184- - CBCD Performed By: #### L 506.1000, L500.4050, L100.0100, L500.4100 #### [facility] [address] [place], [address] Erythrocyte distribution width (RBC) [Ratio] 14.0 % Normal 11.6-14.6 [facility] Comment on above: Order Comment: Order Date: 03/31/24 Order Info: 0184-1 - CBCD Performed By: #### L 506.1000, L500.4050, L100.0100, L500.4100 #### [facility] [address] [place], [address] Hematocrit (Bld) [Volume fraction] 38.9 % Normal 37-47 [facility] Comment on above: Order Comment: Order Date: 03/31/24 Order Info: 0184- - CBCD Performed By: #### L 506.1000, L500.4050, L100.0100, L500.4100 #### [facility] [address] [place], [address] Hemoglobin (Bld) [Mass/Vol] 12.4 g/dL Normal 12.0-15.0 [facility] Comment on above: Order Comment: Order Date: 03/31/24 Order Info: 018- - CBCD Performed By: #### L 506.1000, L500.4050, L100.0100, L500.4100 #### [facility] [address] [place], [address] IG% 0.200 Normal 0.0-0.9 [facility] Comment on above: Order Comment: Order Date: 03/31/24 Order Info: [id number] - CBCD Result Comment: IG% - Immature Granulocytes (promyelocytes, myelocytes and metamyelocytes) > 1% indicates that a LEFT SHIFT is Present. Performed By: #### L 506.1000, L500.4050, L100.0100, L500.4100 #### [facility] [address] [place], [address] Lymphocytes/100 WBC (Bld) 19.7 % Normal 19-41 [facility] Comment on above: Order Comment: Order Date: 03/31/24 Order Info: 018- - CBCD Performed By: #### L 506.1000, L500.4050, L100.0100, L500.4100 #### [facility] [address] [place], [address] MCH (RBC) [Entitic mass] 30.0 pg Normal 27.0-32.0 [facility] Comment on above: Order Comment: Order Date: 03/31/24 Order Info: 018- - CBCD Performed By: #### L 506.1000, L500.4050, L100.0100, L500.4100 #### [facility] [address] [place], [address] MCHC (RBC) [Mass/Vol] 31.9 g/dL Low 32-36 [facility] Comment on above: Order Comment: Order Date: 03/31/24 Order Info: 0184-1 - CBCD Performed By: #### L 506.1000, L500.4050, L100.0100, L500.4100 #### [facility] [address] [place], [address] MCV (RBC) [Entitic vol] 94.0 fL Normal 81-99 [facility] Comment on above: Order Comment: Order Date: 03/31/24 Order Info: 0184-1 - CBCD Performed By: #### L 506.1000, L500.4050, L100.0100, L500.4100 #### [facility] [address] [place], [address] Monocytes/100 WBC (Bld) 8.7 % Normal 0-10 [facility] Comment on above: Order Comment: Order Date: 03/31/24 Order Info: [id number] - CBCD Performed By: #### L 506.1000, L500.4050, L100.0100, L500.4100 #### [facility] [address] [place], [address] Neutrophils/100 WBC (Bld) 62.1 % Normal 47-70 [facility] Comment on above: Order Comment: Order Date: 03/31/24 Order Info: [id number] - CBCD Performed By: #### L 506.1000, L500.4050, L100.0100, L500.4100 #### [facility] [address] [place], [address] Nucleated RBC (Bld) [#/Vol] 0 10*3/uL Normal 0-5 [facility] Comment on above: Order Comment: Order Date: 03/31/24 Order Info: [id number] - CBCD Performed By: #### L 506.1000, L500.4050, L100.0100, L500.4100 #### [facility] [address] [place], [address] Platelet mean volume (Bld) [Entitic vol] 10.3 fL Normal 6.2-12.0 [facility] Comment on above: Order Comment: Order Date: 03/31/24 Order Info: 018-1 - CBCD Performed By: #### L 506.1000, L500.4050, L100.0100, L500.4100 #### [facility] [address] [place], [address] Platelets (Bld) [#/Vol] 245 10*3/uL Normal 150-450 [facility] Comment on above: Order Comment: Order Date: 03/31/24 Order Info: 018- - CBCD Performed By: #### L 506.1000, L500.4050, L100.0100, L500.4100 #### [facility] [address] [place], [address] RBC (Bld) [#/Vol] 4.14 10*6/uL Low 4.2-5.4 [facility] Comment on above: Order Comment: Order Date: 03/31/24 Order Info: 018- - CBCD Performed By: #### L 506.1000, L500.4050, L100.0100, L500.4100 #### [facility] [address] [place], [address] RDW SD 48.0 fl High 35.1-43.9 [facility] Comment on above: Order Comment: Order Date: 03/31/24 Order Info: 0184-1 - CBCD Performed By: #### L 506.1000, L500.4050, L100.0100, L500.4100 #### [facility] [address] [place], [address] WBC (Bld) [#/Vol] 5.5 10*3/uL Normal 4.4-11.0 [facility] Comment on above: Order Comment: Order Date: 03/31/24 Order Info: [id number] - CBCD Performed By: #### L 506.1000, L500.4050, L100.0100, L500.4100 #### [facility] [address] [place], [address] Comprehensive Metabolic Prof nhon 04-01-2024 Albumin [Mass/Vol] 3.4 g/dL Normal 3.2-5.0 [facility] Comment on above: Order Comment: Order Date: 03/31/24 Order Info: [id number] - CMP Order Info: [id number] - LIPID Performed By: #### L 506.1000, L500.4050, L100.0100, L500.4100 #### [facility] [address] [place], [address] Albumin/Globulin [Mass ratio] 0.9 {ratio} Normal 0.9-2.4 [facility] Comment on above: Order Comment: Order Date: 03/31/24 Order Info: [id number] - CMP Order Info: [id number] - LIPID Performed By: #### L 506.1000, L500.4050, L100.0100, L500.4100 #### [facility] [address] [place], [address] ALK P 102 U/L Normal 45-117 [facility] Comment on above: Order Comment: Order Date: 03/31/24 Order Info: [id number] - CMP Order Info: [id number] - LIPID Performed By: #### L 506.1000, L500.4050, L100.0100, L500.4100 #### [facility] [address] [place], [address] ALT [Catalytic activity/Vol] 20 U/L Normal 13-56 [facility] Comment on above: Order Comment: Order Date: 03/31/24 Order Info: [id number] - CMP Order Info: [id number] - LIPID Performed By: #### L 506.1000, L500.4050, L100.0100, L500.4100 #### [facility] [address] [place], [address] AST [Catalytic activity/Vol] 11 U/L Low 15-37 [facility] Comment on above: Order Comment: Order Date: 03/31/24 Order Info: 0786- - CMP Order Info: [id number] - LIPID Performed By: #### L 506.1000, L500.4050, L100.0100, L500.4100 #### [facility] [address] [place], [address] Bilirubin [Mass/Vol] 0.40 mg/dL Normal 0.20-1.00 [facility] Comment on above: Order Comment: Order Date: 03/31/24 Order Info: 0786- - CMP Order Info: [id number] - LIPID Result Comment: For patients on eltrombopag therapy, use of Dimension [place] TBIL is not recommended. Performed By: #### L 506.1000, L500.4050, L100.0100, L500.4100 #### [facility] [address] [place], [address] BUN/CRE 18.8 RATIO Normal 10-20 [facility] Comment on above: Order Comment: Order Date: 03/31/24 Order Info: 0786-1 - CMP Order Info: [id number] - LIPID Performed By: #### L 506.1000, L500.4050, L100.0100, L500.4100 #### [facility] [address] [place], [address] CA,Total 9.5 mg/dL Normal 8.5-10.1 [facility] Comment on above: Order Comment: Order Date: 03/31/24 Order Info: 0786- - CMP Order Info: [id number] - LIPID Performed By: #### L 506.1000, L500.4050, L100.0100, L500.4100 #### [facility] [address] [place], [address] Chloride [Moles/Vol] 105 mmol/L Normal 98-107 [facility] Comment on above: Order Comment: Order Date: 03/31/24 Order Info: 07 - CMP Order Info: [id number] - LIPID Performed By: #### L 506.1000, L500.4050, L100.0100, L500.4100 #### [facility] [address] [place], [address] CO2 [Moles/Vol] 28.0 mmol/L Normal 21.0-32.0 [facility] Comment on above: Order Comment: Order Date: 03/31/24 Order Info: 07 - [facility] Order Info: [id number] - LIPID Performed By: #### L 506.1000, L500.4050, L100.0100, L500.4100 #### [facility] [address] [place], [address] Creatinine [Mass/Vol] 0.75 mg/dL Normal 0.55-1.02 [facility] Comment on above: Order Comment: Order Date: 03/31/24 Order Info: 0786 - CMP Order Info: [id number] - LIPID Result Comment: The validity of the calculated GFR GFRAA in patients over 70 years has not been determined. Clinical correlation is essential. Performed By: #### L 506.1000, L500.4050, L100.0100, L500.4100 #### [facility] [address] [place], [address] EST GFR - AA 98 mL/min Normal >60 [facility] Comment on above: Order Comment: Order Date: 03/31/24 Order Info: 0786- - CMP Order Info: [id number] - LIPID Result Comment: Afri can [place] GFR Calc Performed By: #### L 506.1000, L500.4050, L100.0100, L500.4100 #### [facility] [address] [place], [address] GAP 6 Normal 5-15 [facility] Comment on above: Order Comment: Order Date: 03/31/24 Order Info: [id number] - CMP Order Info: [id number] - LIPID Performed By: #### L 506.1000, L500.4050, L100.0100, L500.4100 #### [facility] [address] [place], [address] GFR/1.73 sq M.predicted among non-blacks MDRD (S/P/Bld) [Vol rate/Area] 81 mL/min/{1.73_m2} Normal >60 [facility] Comment on above: Order Comment: Order Date: 03/31/24 Order Info: 0786- - CMP Order Info: [id number] - LIPID Result Comment: Non- GFR Calc Performed By: #### L 506.1000, L500.4050, L100.0100, L500.4100 #### [facility] [address] [place], [address] Globulin (S) [Mass/Vol] 3.8 g/dL Normal 2.2-4.2 [facility] Comment on above: Order Comment: Order Date: 03/31/24 Order Info: 0786-1 - CMP Order Info: [id number] - LIPID Performed By: #### L 506.1000, L500.4050, L100.0100, L500.4100 #### [facility] [address] [place], [address] Glucose [Mass/Vol] 110 mg/dL High 74-106 [facility] Comment on above: Order Comment: Order Date: 03/31/24 Order Info: 0786-1 - CMP Order Info: [id number] - LIPID Result Comment: Fast ing Glucose result from 100 to 125 mg/dL suggests IMPAIRED HOMEOSTASIS per A.D.A. criteria. Performed By: #### L 506.1000, L500.4050, L100.0100, L500.4100 #### [facility] [address] [place], [address] Potassium [Moles/Vol] 3.9 mmol/L Normal 3.5-5.1 [facility] Comment on above: Order Comment: Order Date: 03/31/24 Order Info: 0786-1 - CMP Order Info: [id number] - LIPID Performed By: #### L 506.1000, L500.4050, L100.0100, L500.4100 #### [facility] [address] [place], [address] Sodium [Moles/Vol] 139 mmol/L Normal 136-145 [facility] Comment on above: Order Comment: Order Date: 03/31/24 Order Info: 0786- - CMP Order Info: [id number] - LIPID Performed By: #### L 506.1000, L500.4050, L100.0100, L500.4100 #### [facility] [address] [place], [address] T PROT 7.2 g/dL Normal 6.4-8.2 [facility] Comment on above: Order Comment: Order Date: 03/31/24 Order Info: 0786- - CMP Order Info: [id number] - LIPID Performed By: #### L 506.1000, L500.4050, L100.0100, L500.4100 #### [facility] [address] [place], [address] Urea nitrogen [Mass/Vol] 14 mg/dL Normal 7-18 [facility] Comment on above: Order Comment: Order Date: 03/31/24 Order Info: [id number] - CMP Order Info: [id number] - LIPID Performed By: #### L 506.1000, L500.4050, L100.0100, L500.4100 #### [facility] [address] [place], [address] Lipid Profileon 04-01-2024 Cholesterol [Mass/Vol] 167 mg/dL Normal 200 [facility] Comment on above: Order Comment: Order Date: 03/31/24 Order Info: 0786- - CMP Order Info: [id number] - LIPID Result Comment: <200 mg/dL Desirable 200-240 mg/dL Borderline >240 mg/dL High Risk Performed By: #### L 506.1000, L500.4050, L100.0100, L500.4100 #### [facility] [address] [place], [address] Cholesterol in HDL [Mass/Vol] 72 mg/dL Normal [facility] Comment on above: Order Comment: Order Date: 03/31/24 Order Info: [id number] - CMP Order Info: [id number] - LIPID Result Comment: The drugs N-Acetylcysteine and Metamizole may falsely depress this assay. Reference Range HDL <40 mg/dL Low HDL Cholesterol HDL >or= 60 mg/dL High HDL Cholesterol Performed By: #### L 506.1000, L500.4050, L100.0100, L500.4100 #### [facility] [address] [place], [address] Cholesterol in LDL [Mass/Vol] 74 mg/dL Normal 0-130 [facility] Comment on above: Order Comment: Order Date: 03/31/24 Order Info: 0786- - CMP Order Info: [id number] - LIPID Performed By: #### L 506.1000, L500.4050, L100.0100, L500.4100 #### [facility] [address] [place], [address] Cholesterol in VLDL [Mass/Vol] 21 mg/dL Normal 5-40 [facility] Comment on above: Order Comment: Order Date: 03/31/24 Order Info: 0786- - CMP Order Info: [id number] - LIPID Performed By: #### L 506.1000, L500.4050, L100.0100, L500.4100 #### [facility] [address] [place], [address] Triglyceride [Mass/Vol] 106 mg/dL Normal [facility] Comment on above: Order Comment: Order Date: 03/31/24 Order Info: 0786-1 - CMP Order Info: [id number] - LIPID Result Comment: The drugs N-Acetylcysteine and Metamizole may falsely depress this assay. Serum Triglycerides Reference Interval Normal <150 mg/dL Borderline high 150 - 199 mg/dL High 200 - 499 mg/dL Very High > or = 500 mg/dL Performed By: #### L 506.1000, L500.4050, L100.0100, L500.4100 #### [facility] [address] [place], [place], [address] Vitamin D,25 Hydroxyon 04-01 Vitamin D 25-OH 77.8 ng/mL Normal [facility] Comment on above: Order Comment: Order Date: 03/31/24 Order Info: [id number] - VITD25 Result Comment: Emily min D 25(OH) Status Range Deficiency <20 ng/mL (50nmol/L) Insufficiency 20 - 30 ng/mL (50 - 75 nmol/L) Sufficiency 30 - 100 ng/mL (75 - 250 nmol/L) Toxicity >100 ng/mL (>250 nmol/L) Performed By: #### L 506.1000, L500.4050, L100.0100, L500.4100 #### [facility] [address] [place], [address] Basophil percentageOrdered B y: Sondra Vu on 09-26-2023 Bilirubin [Mass/Vol] 0.60 mg/dL 0.20-1.00 [facility] Comment on above: For patients on eltr ombopag therapy, use of Dimension [place] TBIL is not recommended. Chloride [Moles/Vol] 107 mmol/L 98-107 [facility] Cholesterol [Mass/Vol] 185 mg/dL <200 [facility] Comment on above: <200 mg/dL Desirable 200-240 mg/dL Borderline >240 mg/dL High Risk Glucose [Mass/Vol] 91 mg/dL 74-106 [facility] Potassium [Moles/Vol] 4.0 mmol/L 3.5-5.1 [facility] Protein [Mass/Vol] 7.3 g/dL 6.4-8.2 [facility] Sodium [Moles/Vol] 141 mmol/L 136-145 [facility] Triglyceride [Mass/Vol] 103 mg/dL <199 [facility] Comment on above: The drugs N-Acetylcy steine and Metamizole may falsely depress this assay.Serum Triglycerides Reference Interval Normal <150 mg/dL Borderline high 150 - 199 mg/dL High 200 - 499 mg/dL Very High > or = 500 mg/dL Laboratory - Chemistry and C hemistry - challengeOrdered By: Sondra Vu on 09-26-2023 Albumin/Globulin [Mass ratio] 1.1 {ratio} 0.9-2.4 [facility] ALP [Catalytic activity/Vol] 99 U/L 45-117 [facility] ALT [Catalytic activity/Vol] 21 U/L 13-56 [facility] Cholesterol in HDL [Mass/Vol] 86 mg/dL >40 [facility] Comment on above: The drugs N-Acetylcy steine and Metamizole may falsely depress this assay. Reference Range HDL <40 mg/dL Low HDL Cholesterol HDL >or= 60 mg/dL High HDL Cholesterol Cholesterol in LDL [Mass/Vol] 78 mg/dL 0-130 [facility] CO2 [Moles/Vol] 28.0 mmol/L 21.0-32.0 [facility] Cobalamin (Vitamin B12) [Mass/Vol] 977 pg/mL 211-911 [facility] Ferritin [Mass/Vol] 64 ng/mL 8-252 [facility] Globulin (S) [Mass/Vol] 3.5 g/dL 2.2-4.2 [facility] Urea nitrogen/Creatinine [Mass ratio] 13.7 mg/mg 10-20 [facility] No Panel InformationOrdered By: Sondra Vu on 09-26-2023 Estimated GFR (MDRD) Amer 90 mL/min >60 [facility] Comment on above: GFR Calc Estimated GFR (MDRD) Non-Af Amer 74 mL/min >60 [facility] Comment on above: Non- GFR Calc Vitamin D 25-Hydroxy 46.2 ng/mL [facility] Comment on above: Vitamin D 25(OH) Sta tus Range Deficiency <20 ng/mL (50nmol/L) Insufficiency 20 - 30 ng/mL (50 - 75 nmol/L) Sufficiency 30 - 100 ng/mL (75 - 250 nmol/L) Toxicity >100 ng/mL (>250 nmol/L) VLDL Cholesterol 21 mg/dL 5-40 [facility] Serum or plasma calcium charley urement (mass/volume)Ordered By: Sondra Vu on 09-26-2023 Calcium [Mass/Vol] 9.7 mg/dL 8.5-10.1 [facility] Serum or plasma creatinine m easurement (mass/volume)Ordered By: Sondra Vu on 09-26-2023 Creatinine [Mass/Vol] 0.80 mg/dL 0.55-1.02 [facility] Comment on above: The validity of the calculated GFR & GFRAA in patients over 70 years has not been determined. Clinical correlation is essential. Serum or plasma urea nitroge n measurement (mass/volume)Ordered By: Sondra Vu on 09-26-2023 Urea nitrogen [Mass/Vol] 11 mg/dL 7-18 [facility] Thin prep Papanicolaou smear with manual screeningOrdered By: Sondra Vu on 09-26-2023 Thin prep Papanicolaou smear with manual screening 3.8 g/dL 3.2-5.0 [facility] Thin prep Papanicolaou smear with manual screening 21 U/L 15-37 [facility] Thin prep Papanicolaou smear with manual screening 6 5-15 [facility] No Panel InformationOrdered By: Dr. Espinoza on 01-25-2023 Endomysial IgA Antibody Negative Negative [facility] Serum IgA measurement (units /volume)Ordered By: Dr. Espinoza on 01-25-2023 IgA Qn (S) 157 mg/dL 64-422 [facility] Comment on above: Performed at: [address] [id number] Director: Sergio Tovar PhD, Phone: [phone] Serum or plasma C reactive p rotein measurement (mass/volume)Ordered By: Dr. Espinoza on 01-25-2023 CRP [Mass/Vol] mg/L 0.0-3.0 [facility] Comment on above: C-Reactive Protein ( CRP) provides useful information for thediagnosis, therapy and monitoring of inflammatory processesand associated diseases. For the evaluation of Relative Riskfor Cardiovascular Disease, a High Sensitivity CRP (HSCRP)should be ordered. Serum tissue transglutaminas e IgA antibody assay (units/volume)Ordered By: Dr. Espinoza on 01-25-2023 tTG IgA Qn (S) <2 U/mL 0-3 [facility] Comment on above: Negative 0 - [...] with elsie; 12/12/2022 2:10 pm ACCESSION NUMBER(S): [id number] ORDERING CLINICIAN: SAMMIE HILARIO INDICATION: Screening. COMPARISON: [...] Screening. Electronically signed by: JOSE PATTERSON MD [facility] US PELVIS TRANSABDOMINAL WIT H TRANSVAGINALon 11-23-2022 US PELVIS TRANSABDOMINAL WITH TRANSVAGINAL Patient Name: CHINMAY GRIMALDO STUDY: US PELVIS TRANSABDOMINAL WITH TRANSVAGINAL; 11/23/2022 11:29 am INDICATION: RIGHT LOWER QUADRANT PAIN. COMPARISON: None. ACCESSION NUMBER(S): [id number] ORDERING CLINICIAN: ERNESTINA AYOUB TECHNIQUE: Multiple multiplanar [...] gas. Electronically signed by: EVERTON VIEIRA MD [facility] BONE DENSITY, DEXA 1 OR MORE SITES: [...] bone Densitometry (DEXA). COMPARISON: 06/06/2020. ACCESSION NUMBER(S): [id number] ORDERING CLINICIAN: SAMMIE HILARIO TECHNIQUE: Bone Densitometry [...] warranted. Electronically signed by: JOSE PATTERSON MD [facility] FOOT COMPLETE, MIN 3 VIEWSon 01-24-2022 FOOT COMPLETE, MIN 3 VIEWS Patient Name: CHINMAY GRIMALOD STUDY: FOOT; COMPLETE, MIN 3 VIEWS INDICATION: [id number]. COMPARISON: None ACCESSION NUMBER(S): [id number] ORDERING CLINICIAN: DIPAK SETH FINDINGS: Nondisplaced fracture of the base of the right 5th metatarsal. No dislocation. No other osseous lesion. IMPRESSION: Nondisplaced right 5th metatarsal base fracture. Electronically signed by: ANDREEA ALEJANDRA MD [facility] GROUP A STREP,PCRon 01-25-20 22 GROUP A STREP,PCR Not detected Normal Not Detected [facility] Comment on above: Result Comment: This test was performed utilizing an FDA-cleared rapid nucleic acid amplification by PCR to qualitatively detect Group A Streptococci from throat swab specimens without the need for culture confirmation of negative results. Performed By: #### G APC1 #### [place] [address] Lab Specimen Source Throat Normal [facility] Comment on above: Performed By: #### G APC1 #### [place] [id number] Provider Note - ED v3on 01-10 Provider [...] ~01/2022) of the COVID-19 vaccine. Received the 3065-3547 flu vaccine. Received the pneumonia vaccine. CRITICAL CARE VITAL SIGNS: T PRBP SpO2O2(LPM) %FiO2 Method 24-Jan-2022 08:08:00-36.26650065/61 98 MDM MDM/ED COURSE: This note was [...] last night; has not tried any other [id number] medications or home remedies for symptom management. No known ill contacts. Has received the COVID-19 vaccine x 2 + 2 boosters, the 5475-2311 flu vaccine, and a pneumonia vaccine. Is [...] Musculoskeletal: Grossly normal; appropriate for age. Integumentary: [place], warm, dry, and intact. No rashes or [...] negative so far. Patient states is leaving town tonight - requesting watch and wait antibiotic. Rx for Amoxicillin sent to p (more content not included)... Normal [facility] GROUP A STREP,PCRon 10-30-19 GROUP A STREP,PCR Not detected Normal Not Detected [facility] Comment on above: Result Comment: This test and its performance have been Validated by [facility] Laboratory using analyte specific reagents (ASR). It has not been cleared or approved by the U.S. Food and Drug Administration. The FDA has determined that such clearance or approval is not necessary. Performed By: #### G APC1 #### [facility] [address] [place] [address] GROUP A STREP,PCRon 10-29-19 Lab Specimen Source Throat Normal [facility] Comment on above: Performed By: #### G APC1 #### [facility] [address] [place] [address] ASOon 09-01-2021 ASO 196 IU/mL Normal 0 - 200 [facility] Comment on above: Performed By: #### A SO #### [facility] [address] [place] [address] CBC AND DIFFERENTIALon 08-31 Basophils (Bld) [#/Vol] 0.00 10*3/uL Normal 0.00 - 0.10 [facility] Comment on above: Performed By: #### C BCDF #### [address] [address] Basophils/100 WBC (Bld) 0.7 % Normal 0.0 - 2.0 [facility] Comment on above: Performed By: #### C BCDF #### [address] [address] Eosinophils (Bld) [#/Vol] 0.10 10*3/uL Normal 0.00 - 0.70 [facility] Comment on above: Performed By: #### C BCDF #### [address] [address] Eosinophils/100 WBC (Bld) 1.3 % Normal 0.0 - 6.0 [facility] Comment on above: Performed By: #### C BCDF #### [address] [address] Erythrocyte distribution width (RBC) [Ratio] 14.2 % Normal 11.5 - 14.5 [facility] Comment on above: Performed By: #### C BCDF #### [address] [address] Hematocrit (Bld) [Volume fraction] 44.1 % Normal 36.0 - 46.0 [facility] Comment on above: Performed By: #### C BCDF #### [address] [address] Hemoglobin (Bld) [Mass/Vol] 14.6 g/dL Normal 12.0 - 16.0 [facility] Comment on above: Performed By: #### C BCDF #### [address] [address] Lymphocytes (Bld) [#/Vol] 0.80 10*3/uL Low 1.20 - 4.80 [facility] Comment on above: Performed By: #### C BCDF #### [address] [address] Lymphocytes/100 WBC (Bld) 16.2 % Normal 13.0 - 44.0 [facility] Comment on above: Performed By: #### C BCDF #### [address] [address] MCHC (RBC) [Mass/Vol] 33.0 g/dL Normal 32.0 - 36.0 [facility] Comment on above: Performed By: #### C BCDF #### [address] [address] MCV (RBC) [Entitic vol] 94 fL Normal 80 - 100 [facility] Comment on above: Performed By: #### C BCDF #### [address] [address] Monocytes (Bld) [#/Vol] 0.30 10*3/uL Normal 0.10 - 1.00 [facility] Comment on above: Performed By: #### C BCDF #### [address] [address] Monocytes/100 WBC (Bld) 6.2 % Normal 2.0 - 10.0 [facility] Comment on above: Performed By: #### C BCDF #### [address] [address] Neutrophils (Bld) [#/Vol] 3.90 10*3/uL Normal 1.20 - 7.70 [facility] Comment on above: Result Comment: Perc ent differential counts (%) should be interpreted in the context of the absolute cell counts (cells/L). Performed By: #### C BCDF #### [address] [address] Neutrophils/100 WBC (Bld) 75.6 % Normal 40.0 - 80.0 [facility] Comment on above: Performed By: #### C BCDF #### [address] [address] NUCLEATED RBC 0.4 /100 WBC Normal [facility] Comment on above: Performed By: #### C BCDF #### [address] [address] Platelets (Bld) [#/Vol] 222 10*3/uL Normal 150 - 450 [facility] Comment on above: Performed By: #### C BCDF #### [address] [address] RBC 4.72 x10E12/L Normal 4.00 - 5.20 [facility] Comment on above: Performed By: #### C BCDF #### [address] [address] WBC (Bld) [#/Vol] 5.2 10*3/uL Normal 4.4 - 11.3 [facility] Comment on above: Performed By: #### C BCDF #### [address] [address] COMPREHENSIVE PANELon 2021 Albumin [Mass/Vol] 4.4 g/dL Normal 3.4 - 5.0 [facility] Comment on above: Performed By: #### C MP #### [address] [address] ALP [Catalytic activity/Vol] 80 U/L Normal 33 - 136 [facility] Comment on above: Performed By: #### C MP #### [address] [address] ALT [Catalytic activity/Vol] 12 U/L Normal 7 - 45 [facility] [facility] Comment on above: Result Comment: Stephanie ents treated with Sulfasalazine may generate falsely decreased results for ALT. Performed By: #### C MP #### [address] [address] Anion gap [Moles/Vol] 11 mmol/L Normal 10 - 20 [facility] Comment on above: Performed By: #### C MP #### [address] [address] AST [Catalytic activity/Vol] 14 U/L Normal 9 - 39 [facility] Comment on above: Performed By: #### C MP #### [address] [address] Bilirubin [Mass/Vol] 0.6 mg/dL Normal 0.0 - 1.2 [facility] Comment on above: Performed By: #### C MP #### [address] [address] Calcium [Mass/Vol] 9.6 mg/dL Normal 8.6 - 10.3 [facility] Comment on above: Performed By: #### C MP #### [address] [address] Chloride [Moles/Vol] 101 mmol/L Normal 98 - 107 [facility] Comment on above: Performed By: #### C MP #### [address] [address] Creatinine [Mass/Vol] 0.75 mg/dL Normal 0.50 - 1.05 [facility] Comment on above: Performed By: #### C MP #### [address] [address] GFR/1.73 sq M.predicted among non-blacks MDRD (S/P/Bld) [Vol rate/Area] 85 mL/min/{1.73_m2} Normal >90 [facility] Comment on above: Result Comment: CALC ULATIONS OF ESTIMATED GFR ARE PERFORMED USING THE 2020 CKD-EPI STUDY REFIT EQUATION WITHOUT THE RACE VARIABLE FOR THE IDMS-TRACEABLE CREATININE METHODS. https://jasn.asnjournals.org/content//ASN.39840 13684 Performed By: #### C MP #### [address] [address] Glucose [Mass/Vol] 110 mg/dL High 74 - 99 [facility] Comment on above: Performed By: #### C MP #### [address] [address] HCO3 (Bld) [Moles/Vol] 31 mmol/L Normal 21 - 32 [facility] Comment on above: Performed By: #### C MP #### [address] [address] Potassium [Moles/Vol] 3.9 mmol/L Normal 3.5 - 5.3 [facility] Comment on above: Performed By: #### C MP #### [address] [address] Protein [Mass/Vol] 7.3 g/dL Normal 6.4 - 8.2 [facility] Comment on above: Performed By: #### C MP #### [address] [address] Sodium [Moles/Vol] 139 mmol/L Normal 136 - 145 [facility] Comment on above: Performed By: #### C MP #### [address] [address] Urea nitrogen [Mass/Vol] 12 mg/dL Normal 6 - 23 [facility] Comment on above: Performed By: #### C MP #### [address] [address] Covid 19 Resultson 2 SARS-CoV-2 (COVID-19) RNA [...] You may also be contacted by the [facility] to see if any of your close [...] or Naproxen (Aleve) can also be used. Berr-fpx-lzlpaub cough and cold medicines can be used according to the instructions on the package. Some pton-qho-hmfimaz medicines also contain acetaminophen. Make sure you [...] water are not available, use alcohol-based hand safety belt installer. Avoid touching your eyes, nose, and mouth [...] 24 lynda (more content not included)... Normal [facility] INFLUENZA A/B, COVID 2019 PC R,SYMPTOMATICon 08-29-2021 INFLUENZA A, PCR Not detected Normal Not Detected [facility] Comment on above: Result Comment: Resp iratory virus testing is performed routinely by PCR for Influenza A/B and RSV. If Influenza and RSV PCR are negative, testing for parainfluenza 1,2,3 viruses and adenovirus is routinely performed for oncology inpatients and intensive care unit patients at [facility] and is available on request on other patients by calling Laboratory Client Services at [phone]. Not Detected results do not preclude Influenza A/B or RSV infections since the adequacy of sample collection or low viral burden may impact the clinical sensitivity of this test method. Performed By: #### C OINP #### [facility] [address] [address] INFLUENZA B, PCR Not detected Normal Not Detected [facility] Comment on above: Result Comment: Resp iratory virus testing is performed routinely by PCR for Influenza A/B and RSV. If Influenza and RSV PCR are negative, testing for parainfluenza 1,2,3 viruses and adenovirus is routinely performed for oncology inpatients and intensive care unit patients at [facility] and is available on request on other patients by calling Laboratory Client Services at [phone] Not Detected results do not preclude Influenza [...] by the Microbiology Laboratory, Department of Pathology, [facility], [place], [place]. It has not been cleared or approved by the US Food and Drug Administration; however, FDA clearance or approval is not currently required for clinical use. This test should not be regarded as investigational or for research purposes. Performed By: #### C OINP #### [place] [address] SARS-CoV-2 (COVID-19) RNA KINGS+probe Ql (Unsp spec) Not detected Normal Not Detected [facility] Comment on above: Result Comment: . This [...] patient management decisions. Fact sheet for providers: https://www.fda.gov/media/223772/download Fact sheet for patients: https://www.fda.gov/media/349059/download This test has received FDA Emergency Use Authorization (EUA) and has been verified by [facility] ([facility]). This test is only authorized for the duration of time that circumstances exist to justify the authorization of the emergency use of in vitro diagnostic tests for the detection of SARS-CoV-2 virus and/or diagnosis of COVID-19 infection under section 564(b)(1) of the Act, 21 U.S.C. 360bbb-3(b)(1), unless the authorization is terminated or revoked sooner. [facility] is certified under CLIA-88 as qualified to perform high complexity testing. Testing is performed in the [facility] laboratories located at [address] [place] [address]. Performed By: #### C OINP #### [place] [address] INFLUENZA A/B, COVID 2019 PC R,SYMPTOMATICon 08-28-2021 DATE OF SYMPTOM ONSET [YYYYMMDD]? [id number] Normal [facility] Comment on above: Performed By: #### C OINP #### [place] [address] Lab Specimen Source Nasal, Nasopharyngeal Normal [facility] Comment on above: Performed By: #### C OINP #### [facility] [address] [place] [address] PT Progress Noteon 1 PT Progress Note [...] aching. Insurance Insurance reviewed Visit number: POC: [facility] Evaluating therapist Naveen Estrada PT. 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 Observation Palpation: R bicipital groove area tenderness. ROM / Joint Mobility (Range of Motion in degrees) Shoulder: (Fabian: P! Denotes Pain with Movement, * Indicates [place] Resistant Otherwise Measurements are in Supine) Flexion: [...] code time is 40 minutes. Therapeutic exercise (04815): timed minutes 32, units 2 . UBE [...] x 5 ea direction . Manual Therapy (32492): timed minutes 8, units 1 . Post GH Mobs gr 3 loose pack (X) STW to R pec, infraspinatus, biceps tendon, upper/mid/low trap x8' Passive ROM all planes (X). 10/05/20 [id number] Provided and reviewed for progression 09/21/20 [id number] Provided and reviewed for progression. 09/16/20 [id number] Provided and reviewed for HEP. Provided today: education and equipment provided . Access Code: [email or web address] URL: [email or web address] Date: 10/31/2020 Prepared by: Nasreen Eubanks Exercises [...] Oct 31 2020 1:35PM EST (Author) Normal [facility] Progress Noteon 1 PT Progress Note [...] Insurance reviewed Visit number: 16 POC: 07/27 [facility] Evaluating therapist Naveen Estrada PT. -->DT [...] code time is 44 minutes. Therapeutic exercise (90446): timed minutes 32, units 2 . UBE [...] x 5 ea direction . Manual Therapy (44370): timed minutes 12, units 1 . Post GH Mobs gr 3 loose pack STW to R pec, infraspinatus, biceps tendon, upper/mid/low trap Passive ROM all planes x8'. 10/05/20 [id number] Provided and reviewed for progression 09/21/20 [id number] Provided and reviewed for progression. 09/16/20 [id number] Provided and reviewed for HEP. Provided today: [...] Signatures Electronically signed by : Shawanda Perez PTA; Oct 26 2020 1:03PM EST (Author) Electronically [...] Insurance reviewed Visit number: 15 POC: 07/27 [facility] Evaluating therapist Naveen Estrada PT. -->DT [...] code time is 44 minutes. Therapeutic exercise (58963): timed minutes 32, units 2 . UBE [...] x 5 ea direction . Manual Therapy (22068): timed minutes 12, units 1 . Post GH Mobs gr 3 loose pack STW to R pec, infraspinatus, biceps tendon, upper/mid/low trap Passive ROM all planes x8'. 10/05/20 [id number] Provided and reviewed for progression 09/21/20 [id number] Provided and reviewed for progression. 09/16/20 [id number] Provided and reviewed for HEP. Provided today: [...] Scales' Signatures Electronically signed by : Shawanda Perez, LEARNING SPECIALIST; Oct 19 2020 1:01PM EST (Author) Electronically [...] Insurance reviewed Visit number: 14 [facility]ave[facility]. -->DT M75.41; [...] code time is 44 minutes. Therapeutic exercise (76742): timed minutes 32, units 2 . UBE [...] x 5 ea direction . Manual Therapy (39235): timed minutes 12, units 1 . Post GH Mobs gr 3 loose pack STW to R pec, infraspinatus, biceps tendon, upper/mid/low trap Passive ROM all planes x8'. 10/05/20 [id number] Provided and reviewed for progression 09/21/20 [id number] Provided and reviewed for progression. 09/16/20 [id number] Provided and reviewed for HEP. Provided today: [...] Signatures Electronically signed by : Shawanda Perez LEARNING SPECIALIST; Oct 14 2020 10:00AM EST (Author) Electronically signed by : Nasreen Hutchins, PT; Oct 25 2020 1:45PM EST Normal [employer] PT Progress Noteon PT Progress Note Therapy [...] Insurance reviewed Visit number: 12 POC: 07/27 [facility] Evaluating therapist Naveen Estrada PT. -->DT [...] code time is 42 minutes. Therapeutic exercise (38634): timed minutes 30, units 2 . UBE [...] x 5 ea direction . Manual Therapy (09848): timed minutes 12, units 1 . Post GH Mobs gr 3 loose pack STW to R pec, infraspinatus, biceps tendon, upper/mid/low trap Passive ROM all planes x8'. 10/05/20 [id number] Provided and reviewed for progression 09/21/20 [id number] Provided and reviewed for progression. 09/16/20 [id number] Provided and reviewed for HEP. Provided today: [...] Signatures Electronically signed by : Mary Dyson LEARNING SPECIALIST; Oct 05 2020 10:22AM EST (Author) Electronically signed by : Nasreen Hutchins PT; Oct 25 2020 1:45PM EST Normal [employer] PT Progress Noteon 1 PT Progress Note [...] Insurance reviewed Visit number: 11 POC: 06/27 [facility] Evaluating therapist Naveen Estrada PT. 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 Observation Palpation: R bicipital groove area tenderness. ROM / Joint Mobility (Range of Motion in degrees) Shoulder: (Fabian: P! Denotes Pain with Movement, * Indicates [place] Resistant Otherwise Measurements are in Supine) Flexion: [...] code time is 43 minutes. Therapeutic exercise (03802): timed minutes 30, units 2 . UBE [...] x10 10? hold (X) . Manual Therapy (57374): timed minutes 13, units 1 . Post GH Mobs gr 3 loose pack STW to R pec, infraspinatus, biceps tendon, upper/mid/low trap Passive ROM all planes x8' (X). 09/21/20 [id number] Provided and reviewed for progression. 09/16/20 [id number] Provided and reviewed for HEP. Provided today: [...] Scales' Signatures Electronically signed by : Nasreen Hutchins PT; Oct 03 2020 6:10PM EST (Author) [...] Insurance reviewed Visit number: 11 POC: 06/27 [facility] Evaluating therapist Naveen Sean PT. -->DT M75.41; M25.511 Subjective Patient reports:. 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 Observation Palpation: R bicipital groove area tenderness. ROM / Joint Mobility (Range of Motion in degrees) Shoulder: (Fabian: P! Denotes Pain with Movement, * Indicates [place] Resistant Otherwise Measurements are in Supine) Flexion: [...] code time is 43 minutes. Therapeutic exercise (19125): timed minutes 30, units 2 . UBE [...] x10 10? hold (X) . Manual Therapy (02355): timed minutes 13, units 1 . Post GH Mobs gr 3 loose pack STW to R pec, infraspinatus, biceps tendon, upper/mid/low trap Passive ROM all planes x8' (X). 09/21/20 [id number] Provided and reviewed for progression. 09/16/20 [id number] Provided and reviewed for HEP. Provided today: [...] 03 2020 6:10PM EST (Author) Normal [employer] PT Progress Noteon [...] anterior/superior. Insurance Insurance reviewed [facility]: [facility] Naveen Gallegoscarolyn PT. M75.41; M25.511 Subjective Patient reports:. Patient reports [...] code time is 43 minutes. Therapeutic exercise (82774): timed minutes 33, units 2 . UBE [...] x10 10? hold (X) . Manual Therapy (86716): timed minutes 10, units 1 . Inf AND Post GH Mobs gr 2-3 loose pack x 2' Passive ROM all planes x8' STW to pec (X). 09/21/20 [id number] Provided and reviewed for progression. 09/16/20 [id number] Provided and reviewed for HEP. Provided today: [...] Scales' Signatures Electronically signed by : Shawanda Perez, LEARNING SPECIALIST; Sep 30 2020 11:45AM EST (Author) Electronically [...] code time is 43 minutes. Therapeutic exercise (98585): timed minutes 33, units 2 . UBE [...] x10 10? hold (X) . Manual Therapy (15270): timed minutes 10, units 1 . Inf AND Post GH Mobs gr 2-3 loose pack x 7' Passive ROM all planes x3' STW to pec (X). 09/21/20 [id number] Provided and reviewed for progression. 09/16/20 [id number] Provided and reviewed for HEP. Provided today: [...] Scales' Signatures Electronically signed by : Mary Dyson, LEARNING SPECIALIST; Sep 28 2020 10:11AM EST (Author) Electronically signed by : Nasreen Hutchins, PT; Sep 28 2020 10:15AM EST Normal [employer] PT Progress Noteon PT Progress Note Therapy Diagnosis Assessed Impingement syndrome, shoulder, right (726.2) (M75.41) Shoulder pain, right (719.41) (M25.511) Plan Goals: Goals set and discussed today. 1. Independent HEP to allow for 50% reduction in max ADL C/C sx ( 8/10) 2-3wks 2. 0/10 night time sx to allow for uninterrupted sleep x1wk ( 7/) 2-3wks 3. Survey score improvement from 22% [...] code time is 43 minutes. Therapeutic exercise (18106): timed minutes 33, units 2 . UBE [...] x10 10? hold (X) . Manual Therapy (36243): timed minutes 10, units 1 . Inf AND Post GH Mobs gr 2-3 loose pack x 7' Passive ROM all planes x3' STW to pec (X). 09/21/20 [id number] Provided and reviewed for progression. 09/16/20 [id number] Provided and reviewed for HEP. Provided today: [...] Sep 26 2020 1:00PM EST (Author) Normal [employer] PT Progress Noteon 1 PT Progress Note Therapy Diagnosis Assessed Impingement syndrome, shoulder, right (726.2) (M75.41) Shoulder pain, right (719.41) (M25.511) Plan Goals: Goals set and discussed today. 1. Independent HEP to allow for 50% reduction in max ADL C/C sx ( 8/10) 2-3wks 2. 0/10 night time sx to allow for uninterrupted sleep x1wk ( 7/) 2-3wks 3. Survey score improvement from 22% [...] 7 [employer] Evaluating therapist Naveen Estrada PT. M75.41; M25.511 Subjective Patient reports:. She reported decreased intensity with night pain. She reported 2/10 pain after treatment. Home program performing as directed: Yes. Precautions: Fall Risk: none Pertinent medical HX includes: osteopenia. Treatment Time in clinic started at 09:18 Time in clinic ended at 10:07 Total time in clinic is 49 minutes. Total timed code time is 45 minutes. Therapeutic exercise (22906): timed minutes 35, units 2 . UBE [...] (P) -hugs x15 (P) . Manual Therapy (34902): timed minutes 10, units 1 . Passive ROM all planes STW to pec. 09/21/20 [id number] Provided and reviewed for progression. 09/16/20 [id number] Provided and reviewed for HEP. Provided today: education and equipment provided . Reistsed Rows and Extension W/ theraloop and blue band. Seated scap retractions Doorway stretches med/low on R Cane ER in supine Demonstrated and verbalized understanding up exercises upon completion of instruction and review of handout. 'Scores and Scales' Signatures Electronically signed by : Mary Dyson LEARNING SPECIALIST; Sep 23 2020 10:26AM EST (Author) Electronically signed by : Nasreen Hutchins PT; Sep 28 2020 10:03AM EST Normal [facility] Progress Noteon 1 PT Progress Note [...] sharp. Insurance Insurance reviewed [facility]: [facility]aveen [facility]strada PT. M75.41; M25.427 Subjective Patient reports:. Patient reported 2/10 pain after treatment. Home program performing as directed: Yes. Precautions: Fall Risk: none Pertinent medical HX includes: osteopenia. Treatment Time in clinic started at 09:15 Time in clinic ended at 10:00 Total time in clinic is 45 minutes. Total timed code time is 43 minutes. Therapeutic exercise (67783): timed minutes 35, units 2 . UBE 3' fwd, 3? bwd Joya 3' flex Resisted rows 2 x 10 Purple Resisted extension 2 x 10 purple Resisted [place] (P from walk outs) -ER 2x10 -IR 2x10 -flex 2x10 -ext 2x10 Doorway stretch med/low 10 hold x 5 ea direction Cane ER 5 hold x 10 Foam roll -pec stretch 1? -butter fly x15 (P) -snow aroldo x15 (P) -scissors x15 (P) -hugs x15 (P) Nerve glides Median x10 10? hold . Manual Therapy (83534): timed minutes 8, units 1 . Passive ROM all planes 10'. 09/21/20 [id number] Provided and reviewed for progression. 09/16/20 [id number] Provided and reviewed for HEP. Provided today: education and equipment provided . Reistsed Rows and Extension W/ theraloop and blue band. Seated scap retractions Doorway stretches med/low on R Cane ER in supine Demonstrated and verbalized understanding up exercises upon completion of instruction and review of handout. 'Scores and Scales' Signatures Electronically signed by : Mary Dyson LEARNING SPECIALIST; Sep 21 2020 10:20AM EST (Author) Electronically signed by : Nasreen Hutchins PT; Sep 28 2020 10:02AM EST (Author) Normal [facility] PT Progress Noteon PT Progress Note [...] sharp. Insurance Insurance reviewed Visit [facility]: [facility] [...] code time is 44 minutes. Therapeutic exercise (18051): timed minutes 34, units 2 . UBE 2' fwd/2 bwd' Joya 3' flex Doorway stretch med/low 10 hold x 5 ea direction Cane ER 5 hold x 10 Resisted rows 2 x 10 Purple Resisted extension 2 x 10 purple T-band walk outs [place] -ER x10 2 steps -IR x10 2 steps -flex x10 2 steps -ext x10 2 steps Foam roll -pec stretch 1? -butter fly x10 -snow aroldo x10 -scissors x10 -hugs x10 Nerve glides Median x10 . Manual Therapy (67639): timed minutes 10, units 1 . Passive ROM all planes 10'. 09/16/20 [id number] Provided and reviewed for HEP. Provided today: education and equipment provided . Reistsed Rows and Extension W/ theraloop and blue band. Seated scap retractions Doorway stretches med/low on R Cane ER in supine Demonstrated and verbalized understanding up exercises upon completion of instruction and review of handout. 'Scores and Scales' Signatures Electronically signed by : Shawanda Perez LEARNING SPECIALIST; Sep 19 2020 12:23PM EST (Author) Electronically signed by : Nasreen Hutchins PT; Sep 28 2020 10:01AM EST Normal [facility] PT Progress Noteon 1 PT Progress Note Therapy Diagnosis Assessed Impingement syndrome, shoulder, right (726.2) (M75.41) Shoulder pain, right (719.41) (M25.511) Plan Goals: Goals set and discussed today. 1. Independent HEP to allow for 50% reduction in max ADL C/C sx ( 8/10) 2-3wks 2. 0/10 night time sx to allow for uninterrupted sleep x1wk ( 7/7) 2-3wks 3. Survey score improvement from 22% [...] sharp. Insurance Insurance reviewed [facility]: [facility] Naveen Estrada PT. M75.41; M25.511 [...] code time is 43 minutes. Therapeutic exercise (18488): timed minutes 32, units 2 . UBE 2' fwd/2 bwd' Joya 3' flex Doorway stretch med/low 10 hold x 5 ea direction Cane ER 5 hold x 10 Resisted rows 2 x 10 (Purple) Resisted extension 2 x 10 purple T-band walk outs [place] (P) -ER x10 2 steps -IR x10 2 steps -flex x10 2 steps -ext x10 2 steps Foam roll (N) -pec stretch 1? -butter fly x10 -snow aroldo x10 -scissors x10 -hugs x10 Nerve glides Median x10 . Manual Therapy (00306): timed minutes 11, units 1 . Passive ROM all planes 10'. 09/16/20 [id number] Provided and reviewed for HEP. Provided today: education and equipment provided . Reistsed Rows and Extension W/ theraloop and blue band. Seated scap retractions Doorway stretches med/low on R Cane ER in supine Demonstrated and verbalized understanding up exercises upon completion of instruction and review of handout. 'Scores and Scales' Signatures Electronically signed by : Mary Dyson LEARNING SPECIALIST; Sep 16 2020 10:31AM EST (Author) Electronically signed by : Nasreen Hutchins PT; Sep 28 2020 10:01AM EST Normal [employer] PT Progress Noteon PT Progress Note Therapy Diagnosis Assessed Impingement syndrome, shoulder, right (726.2) (M75.41) Shoulder pain, right (719.41) (M25.511) Plan Goals: Goals set and discussed today. 1. Independent HEP to allow for 50% reduction in max ADL C/C sx ( 8/10) 2-3wks 2. 0/10 night time sx to allow for uninterrupted sleep x1wk ( 7/7) 2-3wks 3. Survey score improvement from 22% [...] sharp. Insurance Insurance reviewed Visit number: 3 [employer] Evaluating therapist Naveen Estrada PT. M75.41; M25.511 Subjective Patient reports:. Patient reported 1/10 pain after treatment. Home program performing as directed: Yes. Precautions: Fall Risk: none Pertinent medical HX includes: osteopenia. Treatment Time in clinic started at 08:30 Time in clinic ended at 09:15 Total time in clinic is 45 minutes. Total timed code time is 43 minutes. Therapeutic exercise (44264): timed minutes 32, units 2 . UBE [...] handout and review 6' . Manual Therapy (42156): timed minutes 11, units 1 . Passive [...] Signatures Electronically signed by : Mary Dyson LEARNING SPECIALIST; Sep 14 2020 9:29AM EST (Author) Electronically signed by : Nasreen Hutchins, PT; Sep 15 2020 10:06AM EST Normal [facility] PT Progress Noteon PT Progress Note [...] 8. Please identify location of pain: R shyannldr. Insurance Insurance reviewed Visit number: 2 [employer] Evaluating therapist Naveen Estrada PT. M75.41; [...] code time is 42 minutes. Therapeutic exercise (49238): timed minutes 32, units 2 . HEP instruction with new handout and review 6' (N) UBE 2' fwd/2 bwd' (N) Joya 3' flex (N) Doorway stretch med/low 10 hold x 5 ea direction (N) Cane ER 5 hold x 10 (N) Resisted rows 2 x 10 (Purple) (N) Resisted extension 2 x 10 Blue (N) . Manual Therapy (79184): timed minutes , units . Passive ROM all planes 10' (N). Provided today: education and equipment provided . Reistsed Rows and Extension W/ theraloop and blue band. Seated scap retractions Doorway stretches med/low on R Cane ER in supine Demonstrated and verbalized understanding up exercises upon completion of instruction and review of handout. 'Scores and Scales' Signatures Electronically signed by : Shawanda Perez PTA; Sep 09 2020 10:10AM EST (Author) Electronically [...] shldr. Insurance Insurance reviewed Visit number: 1 [facility] Evaluating therapist Naveen Gallegoscarolyn PT. M75.41; M25.511 Subjective Current Episode of [...] P! Denotes Pain with Movement, * Indicates [place] Resistant Otherwise Measurements are in Supine) Flexion: [...] PROM all dir pulleys 2'. Evaluation Code: 58923 PT Eval: Low Complexity, 40 min(s). Timed: 62581 Manual Therapy, 10 min(s), 1 unit(s). Contacts for Physician Signature First attempt date: 09/07/20. Referring Provider Signature: I am in agreement with the above plan of care. Referring Provider Signature __, Date/Time Signatures Electronically signed by : Chase Estrada, PT; Sep 07 2020 11:20AM EST (Author) Normal Touchworks ECG 12-LEADon 09-22-2019 Atrial Rate [facility] P [facility] P-R Interval [facility] Q-T Interval [facility] Q-T Interval (corrected) [facility] QRS Duration [facility] QTC Calculation (Bezet) [facility] R [facility] T [facility] Ventricular Rate [facility] Alcohol, Medicalon 0 Ethanol [Mass/Vol] mg/dL <10.00 mg/dL [facility] Comment on above: Alcohol cutoff: <10. 00 mg/dL = None Detected Interpretation and review of laboratory results Normal [facility] CBC WITH AUTO DIFFERENTIALon 09-06-2019 Basophils (Bld) [#/Vol] 0.04 10*3/uL [facility] Basophils/100 WBC (Bld) 0.6 % [facility] Eosinophils (Bld) [#/Vol] 0.10 10*3/uL [facility] Eosinophils/100 WBC (Bld) 1.5 % [facility] Erythrocyte distribution width (RBC) [Entitic vol] 13.0 % 11.6 - 14.8 % [facility] Hematocrit (Bld) [Volume fraction] 42.4 % 36 - 46 % [facility] Hemoglobin (Bld) [Mass/Vol] 14.0 g/dL 12 - 16 g/dL [facility] Immature granulocytes (Bld) [#/Vol] 0.02 10*3/uL [facility] Immature granulocytes/100 WBC (Bld) 0.30 % [facility] Comment on above: The IG parameter is the percentage of metamyelocytes, myelocytes, and promyelocytes. Lymphocytes (Bld) [#/Vol] 1.89 10*3/uL [facility] Lymphocytes/100 WBC (Bld) 28.8 % [facility] MCH (RBC) [Entitic mass] 30.1 pg 26 - 34 pg [facility] MCHC (RBC) [Mass/Vol] 33.0 g/dL 31 - 37 g/dL [facility] MCV (RBC) [Entitic vol] 91.2 fL 80 - 100 fL [facility] Monocytes (Bld) [#/Vol] 0.52 10*3/uL [facility] Monocytes/100 WBC (Bld) 7.9 % [facility] Neutrophils (Bld) [#/Vol] 3.99 10*3/uL [facility] Neutrophils/100 WBC (Bld) 60.9 % [facility] Nucleated RBC (Bld) [#/Vol] 0.00 10*3/uL [facility] Nucleated RBC/100 WBC (Bld) [Ratio] 0.0 % [facility] Platelet mean volume (Bld) [Entitic vol] 10.3 fL 9 - 15.5 fL [facility] Platelets (Bld) [#/Vol] 258 10*3/uL [facility] RBC (Bld) [#/Vol] 4.65 10*6/uL [facility] eah WBC (Bld) [#/Vol] 6.56 10*3/uL [facility] Chem 7on 09-06-2019 Anion gap [Moles/Vol] 13 mmol/L 10 - 2 0 mmol/L [facility] Chloride [Moles/Vol] 104 mmol/L 98 - 10 8 mmol/L [facility] Creatinine [Mass/Vol] 0.80 mg/dL 0.6 - 1.2 mg/dL [facility] GFR/1.73 sq M predicted among non-blacks MDRD (S/P/Bld) [Vol rate/Area] The eGFR should be used for monitoring renal function only and not for medication dosing. [facility] GFR/1.73 sq M.predicted CKD-EPI (S/P/Bld) [Vol rate/Area] 76 >=60 mL/min/1.73 m2 [facility] Glucose [Mass/Vol] 108 mg/dL High 65 - 99 mg/dL [facility] HCO3 [Moles/Vol] 26 mmol/L 21 - 32 mmol/L [facility] Interpretation and review of laboratory results Abnormal [facility] Potassium [Moles/Vol] 3.4 mmol/L Low 3.5 - 5.1 mmol/L [facility] Sodium [Moles/Vol] 140 mmol/L 135 - 145 mmol/L [facility] Urea nitrogen [Mass/Vol] 11 mg/dL 8 - 25 mg/dL [facility] Urea nitrogen/Creatinine [Mass ratio] 13.8 mg/mg [facility] D-DIMER, QUANTITATIVEon 08-13 Fibrin D-dimer FEU (PPP) [Mass/Vol] 0.43 0.27 - 0.49 mcg/mL FEU [facility] Interpretation and review of laboratory results Normal [facility] A D-dimer concentrat ion of <0.5 micrograms per milliliter FEU is considered a low probability for pulmonary embolus (PE) and deep venous thrombosis (DVT). Results of this test should always be interpreted in conjunction with the patient's medical history,clinical presentation, and other findings. Clinical diagnosis should not be based on the results of the D-dimer alone. [facility] DRUGS OF ABUSE SCREEN, URINE on 09-06-2019 Amphetamines Ql (U) None Detected None Detected [facility] Comment on above: Urine Amphetamine Cu toff: < 1000 ng/mL = None Detected Barbiturates Screen Ql (U) None Detected None Detected [facility] Comment on above: Urine Barbiturates C utoff: < 200 ng/mL = None Detected Benzodiazepines Ql (U) None Detected None Detected [facility] Comment on above: Urine Benzodiazepine Cutoff: < 200 ng/mL = None Detected Cannabinoids Screen Ql (U) None Detected None Detected [facility] Comment on above: Urine Cannabinoids C utoff: < 50 ng/mL = None Detected Cocaine Ql (U) None Detected None Detected [facility] Comment on above: Urine Cocaine Cutoff : < 300 ng/mL = None Detected Interpretation and review of laboratory results Normal [facility] Methadone Screen Ql (U) None Detected None Detected [facility] Comment on above: Urine Methadone Cuto ff: < 300 ng/mL = None Detected Opiates Screen Ql (U) None Detected None Detected [facility] Comment on above: Urine Opiates Cutoff : < 300 ng/mL = None Detected Oxycodone Ql (U) None Detected None Detected [facility] Comment on above: Urine Oxycodone Cuto ff: < 100 ng/mL = None Detected Screen results shoul d be used for treatment purposes only. [facility] Hepatic Function Panel (LFT) on 09-06-2019 Albumin [Mass/Vol] 4.1 g/dL 3.2 - 5.2 g/dL [facility] ALP [Catalytic activity/Vol] 82 U/L 40 - 150 U/L [facility] ALT [Catalytic activity/Vol] 22 U/L 14 - 65 U/L [facility] AST [Catalytic activity/Vol] 15 U/L 0 - 45 U/L [facility] Bilirubin [Mass/Vol] 0.4 mg/dL 0 - 1.3 mg/dL [facility] Bilirubin.conjugated [Mass/Vol] mg/dL 0 - 0.4 mg/dL [facility] Protein [Mass/Vol] 7.9 g/dL 6 - 8 g/dL [facility] alth Lipaseon 09-06-2019 Lipase [Catalytic activity/Vol] 186 U/L 73 - 393 U/L [facility] Otheron 09-06-2019 Interpretation and review of laboratory results Normal [facility] TROPONINon 09-06-2019 Troponin I.cardiac [Mass/Vol] Normal [facility] Troponin I.cardiac [Mass/Vol] ng/mL <=45 ng/L [facility] TSH with Reflex Free T4on TSH Qn 0.86 m[IU]/L [facility] URINALYSISon 09-06-2019 Bacteria Auto Ql (U) None Seen None Se en /hpf [facility] Bilirubin Ql (U) Negative Negative [facility] th Clarity Refractometry automated (U) Clear Clear [facility] Color (U) Yellow Colorless, Yellow [facility] Glucose Auto test strip (U) [Mass/Vol] Negative Negative mg/dL [facility] Hemoglobin Auto test strip Ql (U) Negative Negative [facility] Hyaline casts Auto (Urine sed) [#/Area] 3-5 Abnormal 0 - 2 /lpf [facility] Interpretation and review of laboratory results Abnormal [facility] Ketones (U) [Mass/Vol] Negative Negat tiffanie mg/dL [facility] Leukocyte esterase Auto test strip Ql (U) Negative Negative [facility] h Mucus Auto (Urine sed) [#/Area] Many Abnormal None Seen, Rare /lpf [facility] Nitrite Auto test strip Ql (U) Negative Negative [facility] pH (U) 5.0 [pH] [facility] Protein (U) [Mass/Vol] Negative Negat tiffanie mg/dL [facility] RBC Auto (Urine sed) [#/Area] <1 [facility] Specific gravity (U) [Rel density] 1.009 [facility] Urobilinogen (U) [Mass/Vol] <2.0 <2.0 mg/dL [facility] WBC Auto (Urine sed) [#/Area] 2 [facility] Microscopic examinat ion is performed on all urinalysis samples and only positive findings are reported. The test for blood on the chemical analytic portion of urinalysis may also be positive due to hemoglobinuria and myoglobinuria and if red blood cells are present they are quantified by microscopic examination. [facility] XR Chest 1 Viewon 09-06-2019 Interface, Rad [...] No acute findings. DPR/mjr Workstation ID: [id number] [facility] 1. No acute findings . DPR/mjr Workstation ID: [id number] [facility] EXAMINATION: XR CHES T PA/AP 09/06/2019 5:06 [...] normal and the osseous structures appear intact. [facility] MA Mamm Screen w/CAD if perf ormed bilaton 04-16-2019 MA Mamm Screen w/CAD if performed bilat Exam Date/Time: 04/16/2019 09:16 EDT Reason for Exam: SCREENING Report STUDY: Digital mammography screening; 04/16/2019 9:16 am ACCESSION NUMBER(S): [id number] ORDERING CLINICIAN: Dipak Seth INDICATION: Screening. COMPARISON: [...] Category 1-Negative Recommendation: Normal interval follow-up Normal [facility] US Extremity Non-Vascular [facility] 03-06-2019 US Extremity Non-Vascular Right Exam Date/Time: 03/05/2019 15:20 EDT Reason for Exam: RIGHT AXILLAY LYMPHADENOPATHY Report STUDY: US Extremity Non-Vascular Right; 03/05/2019 3:20 pm INDICATION: RIGHT AXILLARY LYMPHADENOPATHY. COMPARISON: None. ACCESSION NUMBER(S): [id number] ORDERING CLINICIAN: Ernestina Ayoub TECHNIQUE: Multiple grayscale ultrasonographic images were obtained through the right axilla in the region of palpable abnormality. FINDINGS: There is no ultrasonographic mass or asymmetry identified in the region of palpable abnormality. IMPRESSION: No ultrasonographic evidence of malignancy. FINAL REPORT Dictated: 03/06/2019 10:11 am Jose Patterson MD Signed (Electronic Signature): 03/06/2019 10:11 am Signed by: Jose Ptaterson MD Technologist: ESTEBAN Normal [facility] XR Wrist 3+ Views Righton XR Wrist 3+ Views Right Exam Date/Time: 11/25/2018 09:49 EDT Reason for Exam: right wrist pain Report STUDY: XR Wrist 3+ Views Right; 11/25/2018 9:49 am INDICATION: right wrist pain. COMPARISON: None. ACCESSION NUMBER(S): [id number] ORDERING CLINICIAN: Dipak Seth FINDINGS: There is no acute fracture or dislocation. The carpal bones are normal alignment. There is normal bony mineralization. There is no soft tissue swelling or joint effusion. IMPRESSION: No acute fracture. FINAL REPORT Dictated: 11/26/2018 11:46 am Jaylon Mercer MD Signed (Electronic Signature): 11/26/2018 11:46 am Signed by: Jaylon Mercer MD Technologist: STANISLAW [facility] Vital Signs Date Time Vital Sign Value Performing Clinician Facility 12-03-2024 14:37-0400 Body height 160 cm Isabella Dixon MD Work Phone: [facility] 12-03-2024 14:37-0400 Body mass index (BMI) [Ratio] 24.53 kg/m2 Isabella Dixon MD Work Phone: [facility] 12-03-2024 14:37-0400 Body weight 62.82 kg Isabella Dixon MD Work Phone: [facility] 12-03-2024 14:37-0400 Diastolic blood pressure 65 mm[Hg] Isabella Dixon MD Work Phone: [facility] 12-03-2024 14:37-0400 Heart rate 69 /min Isabella Dixon MD Work Phone: [facility] 12-03-2024 14:37-0400 SaO2% (BldA) [Mass fraction] 97 % Isabella Dixon MD Work Phone: [facility] 12-03-2024 14:37-0400 Systolic blood pressure 129 mm[Hg] Isabella Dixon MD Work Phone: [facility] 07-31-2024 14:03-0500 Diastolic blood pressure 69 mm[Hg] Jason Vidales MD Work Phone: [facility] 07-31-2024 14:03-0500 Heart rate 57 /min Jason Vidales MD Work Phone: [facility] 07-31-2024 14:03-0500 SaO2% (BldA) [Mass fraction] 96 % Jason Vidales MD Work Phone: [facility] 07-31-2024 14:03-0500 Systolic blood pressure 119 mm[Hg] Jason Vidales MD Work Phone: [facility] 07-31-2024 11:55-0500 Body temperature 97.9 [degF] Jason Vidales MD Work Phone: [facility] 07-31-2024 11:55-0500 Respiratory rate 16 /min Jason Vidales MD Work Phone: [facility] 07-30-2024 18:29-0500 Body height 160 cm Jason Vidales MD Work Phone: [facility] 07-30-2024 18:29-0500 Body mass index (BMI) [Ratio] 24.45 kg/m2 Jason Vidales MD Work Phone: [facility] 07-30-2024 18:29-0500 Body weight 62.6 kg Jason Vidales MD Work Phone: [facility] 01-24-2022 10:08-0400 Body height 160 cm Dipak Seth Other Phone: [facility] 01-24-2022 10:08-0400 Body temperature 97.88 [degF] Dipak Seth Other Phone: [facility] 01-24-2022 10:08-0400 Diastolic blood pressure 61 mm[Hg] Dipak Seth Other Phone: [facility] 01-24-2022 10:08-0400 Heart rate 73 /min Dipak Seth Other Phone: [facility] 01-24-2022 10:08-0400 Respiratory rate 16 /min Dipak Seth Other Phone: [facility] 01-24-2022 10:08-0400 SaO2% (BldA) [Mass fraction] 98 % Dipak Seth Other Phone: [facility] 01-24-2022 10:08-0400 Systolic blood pressure 117 mm[Hg] Dipak Seth Other Phone: [facility] 10-28-2021 10:40-0400 Body height 160 cm Dipak Seth Other Phone: [facility] 10-28-2021 10:40-0400 Body temperature 98.78 [degF] Dipak Seth Other Phone: [facility] 10-28-2021 10:40-0400 Diastolic blood pressure 71 mm[Hg] Dipak Seth Other Phone: [facility] 10-28-2021 10:40-0400 Heart rate 84 /min Dipak Seth Other Phone: [facility] 10-28-2021 10:40-0400 Respiratory rate 16 /min Dipak Seth Other Phone: [facility] 10-28-2021 10:40-0400 SaO2% (BldA) [Mass fraction] 96 % Dipak Seth Other Phone: [facility] 10-28-2021 10:40-0400 Systolic blood pressure 108 mm[Hg] Dipak Seth Other Phone: [facility] 06-08-2021 13:46-0400 Body height 160 cm Dipak Seth Other Phone: [facility] 06-08-2021 13:46-0400 Body temperature 98.06 [degF] Dipak Seth Other Phone: [facility] 06-08-2021 13:46-0400 Diastolic blood pressure 71 mm[Hg] Dipak Seth Other Phone: [facility] 06-08-2021 13:46-0400 Heart rate 75 /min Dipak Seth Other Phone: [facility] 06-08-2021 13:46-0400 Respiratory rate 14 /min Dipak Seth Other Phone: [facility] 06-08-2021 13:46-0400 SaO2% (BldA) [Mass fraction] 98 % Dipak Seth Other Phone: [facility] 06-08-2021 13:46-0400 Systolic blood pressure 129 mm[Hg] Dipak Seth Other Phone: [facility] 09-22-2019 08:57-0500 BMI (Body Mass Index) 23.72 kg/m2 Kimo Aikenhmy [facility] 09-22-2019 08:57-0500 Body weight 60.74 kg Kimo [facility] 09-22-2019 08:57-0500 BP Diastolic 66 mm[Hg] Kimo [facility] 09-22-2019 08:57-0500 BP Systolic 106 mm[Hg] [facility] 09-[facility] 08:57-0500 Height 160 cm Kimo [facility] 09-22-2019 08:57-0500 Pulse (Heart Rate) 70 /min Kimo [facility] 09-22-2019 08:57-0500 Pulse Oximetry 96 % [facility] 09-06-2019 19:00-0500 BP Diastolic 60 mm[Hg] [facility] 09-06-2019 19:00-0500 BP Systolic 129 mm[Hg] [facility] 09-06-2019 19:00-0500 Pulse (Heart Rate) 73 /min [facility] 09-06-2019 19:00-0500 Pulse Oximetry 98 % [facility] 09-06-2019 16:51-0500 BMI (Body Mass Index) 23.56 kg/m2 [facility] 09-06-2019 16:51-0500 Body Temperature 97.59 [degF] [facility] 16:51-0500 Body weight 60.33 kg [facility] 09-06-2019 16:51-0500 Height 160 cm [facility] 09-06-2019 16:51-0500 Respiratory Rate 16 /min [facility] Encounters Encounter Date Encounter Type Care Provider Facility Start: 02-10-2025 ambulatory Trang Lilly Facility:[facility] Start: 01-25-2025 End: 01-25-2025 Follow-up encounter Isabella Dixon MD Work Phone: [facility] Comment on above: Ambulatory ECG Event Monitor Start: 01-19-2025 End: 01-19-2025 ambulatory Trang Carr MD Work Phone: [facility] Work Phone: Start: 01-19-2025 End: 01-19-[address] Trang Carr MD -[facility] Start: 01-19-2025 End: 01-19-2025 ambulatory Trang Carr Facility:[facility] Start: 01-18-2025 Encounter for other specified special examinations Trang Carr [facility] Start: 01-13-2025 End: 01-13-2025 ambulatory Trang Carr MD Work Phone: [facility] Work Phone: Start: 01-13-2025 End: 01-13-[address] Trang Carr MD -[facility] Work Phone: Start: 01-12-2025 End: 01-12-2025 Patient encounter procedure Molly Kirby OD Work Phone: Optometry Comment on above: Myopia of both eyes (Primary Dx); Regular astigmatism of both eyes; Presbyopia Start: 01-12-2025 End: 01-13-2025 ambulatory MOLLY KIRBY Facility:[facility] Start: 12-04-2024 End: 12-04-[address] Pb Corrales MD -Laboratory Specimen Work Phone: Start: 12-04-2024 End: 12-04-2024 Refill Kit Wright MA [facility] Comment on above: Medication Refill Start: 12-03-2024 End: 12-03-2024 Office outpatient new 45 minutes Darby Velasco NURSE OBGYN Work Phone: [facility] Comment on above: Palpitations (Primar y Dx); Chest pain, unspecified type Start: 12-03-2024 End: 12-04-2024 Refill Nita Null RN [facility] Comment on above: Medication Refill Start: 11-28-2024 End: 11-28-2024 [facility] Start: 11-24-2024 End: 11-24-2024 ambulatory Trang Carr MD Work Phone: [facility] Work Phone: Start: 11-24-2024 End: 11-24-2024 Patient encounter procedure Aroldo Cespedes FILM RENTAL CLERK-C [facility] Start: 11-24-2024 End: 11-24-2024 ambulatory Aroldo Cespedes NP Facility:[facility] Start: 07-30-2024 End: 07-31-2024 Emergency department patient visit Yisel Josue MD Work Phone: [facility] Start: 07-30-2024 End: 07-31-2024 ambulatory JERE AJ [facility] Start: 06-19-2024 End: 06-19-2024 ambulatory MIHIR PÉREZ Facility:[facility] Start: 06-11-2024 End: 06-11-2024 ambulatory Antonioon Lilly Facility:[facility] Start: 05-07-2024 End: 05-11-2024 ambulatory Chalon Lilly Facility:[facility] Start: 04-08-2024 End: 04-08-2024 ambulatory Chalon Lilly Facility:[facility] Start: 04-01-2024 End: 04-01-2024 ambulatory Chalon Lilly Facility:[facility] Start: 03-23-2024 End: 03-23-2024 ambulatory MOLLY Arana PABLOISRRAEL Facility:[facility] Start: 03-23-2024 End: 03-23-2024 Patient encounter procedure Molly Kirby OD Work Phone: Optometry Comment on above: Dry eyes (Primary Dx ) Start: 01-20-2024 End: 01-20-2024 ambulatory MOLLY T PABLOISRRAEL Facility:[facility] Start: 01-20-2024 End: 01-20-2024 Patient encounter procedure Molly Kirby OD Work Phone: Optometry Comment on above: Subconjunctival hemo rrhage of left eye (Primary Dx) Start: 11-25-2023 End: 11-25-2023 Emergency department patient visit LOTTIE RAZO [facility] Start: 09-26-2023 End: 09-26-2023 ambulatory [facility] Work Phone: Start: 09-26-2023 End: 09-26-2023 Patient encounter procedure [facility] Start: 01-25-2023 End: 01-25-2023 ambulatory [facility] Work Phone: Start: 01-25-2023 End: 01-25-2023 Patient encounter procedure [facility] Start: 12-12-[address] Sammie Hilario Facility:[id number] Start: 11-23-2022 ambulatory Ms. 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 Dipak Seth Facility:[id number] Start: 01-24-[address] Dipak Seth Facility:[id number] Start: 01-24-2022 End: 01-24-2022 Emergency department patient visit [facility] 01 Start: 10-28-2021 End: 10-28-2021 Emergency department patient visit Lucinda Vizcarra [facility] 01 Start: 06-08-2021 End: 06-08-2021 Emergency department patient visit Lucinda Vizcarra [facility] Start: 10-31-2020 Patient encounter procedure [facility] Work Phone: Start: 10-26-2020 Patient encounter procedure [facility] Work Phone: Start: 10-19-2020 Patient encounter procedure [facility] Work Phone: Start: 10-14-2020 Patient encounter procedure [facility] Work Phone: Start: 10-05-2020 Patient encounter procedure [facility] Work Phone: Start: 10-03-2020 Patient encounter procedure [facility] Work Phone: Start: 09-30-2020 Patient encounter procedure [facility] Work Phone: Start: 09-28-2020 Patient encounter procedure [facility] Work Phone: Start: 09-26-2020 Patient encounter procedure [facility] Work Phone: Start: 09-23-2020 Patient encounter procedure [facility] Work Phone: Start: 09-21-2020 Patient encounter procedure [facility] Work Phone: Start: 09-19-2020 Patient encounter procedure [facility] Work Phone: Start: 09-16-2020 Patient encounter procedure Nasreen [facility] Work Phone: Start: 09-14-2020 Patient encounter procedure Nasreen [facility] Work Phone: Start: 09-09-2020 Patient encounter procedure Nasreen [facility] Work Phone: Start: 09-07-2020 Patient encounter procedure Nasreen [facility] Work Phone: Start: 09-22-2019 End: 09-22-2019 Office outpatient new 45 minutes Yisel Josue Work Phone: [facility] Comment on above: Cardiac arrhythmia, unspecified cardiac arrhythmia type (Primary Dx); Palpitations; Chest discomfort Start: 09-11-2019 End: 09-11-2019 Subsequent hospital visit by physician Dipak Seth Work Phone: [facility] Comment on above: Tachycardia Start: 09-06-2019 End: 09-06-2019 Emergency department patient visit Yisel Josue Work Phone: [facility] Comment on above: Palpitations (Primar y Dx); Hypokalemia Procedures Date Procedure Procedure Detail Performing Clinician Start: 01-19-2025 JUJU Carr MD Work Phone: Comment on above: Performed at: [address] [id number] Director: Sergio Tovar PhD, Phone: [phone] at: [facility] [id number] Director: Amaya Ingram MD, Phone: [phone] Start: 01-19-2025 Antibody to lupus La protein measurement Trang Carr MD Work Phone: Start: 01-19-2025 Antibody to SS-A measurement Trang Carr MD Work Phone: Start: 01-19-2025 Laboratory data interpretation Trang Carr MD Work Phone: Comment on above: No lupus anticoagula nt was detected.Performed at: [facility] [address] [id number] Director: Amaya Ingram MD, Phone: [phone] Start: 01-19-2025 Lupus anticoagulant assay, platelet neutralization method Trang Carr MD Work Phone: Start: 01-19-2025 Lupus anticoagulant screening test Trang Carr MD Work Phone: Start: 01-19-2025 Prothrombin time Trang Carr MD Work Phone: Start: 01-13-2025 Aquilino-Welch virus c apsid IgG measurement Trang Carr MD Work Phone: Comment on above: Negative <18.0 Equiv ocal 18.0 - 21.9 Positive >21.9 Start: 01-13-2025 Aquilino-Welch virus s erologic test Trang Carr MD Work Phone: Comment on above: EBV Interpretation C hartKey: Antibody Present + Antibody Absent -Interpretation VCA-IgM VCA-IgG EBNA-IgGNo previous infection/ - - -SusceptiblePrimary infection (new + + -or recent)Past Infection +or- + +See comment below* + - -*Results indicate infection with EBV at some time however cannot predict the timing of the infection since antibodies to EBNA usually develop after primary infection or, alternatively, approximately 5-10% of patients with EBV never develop antibodies to EBNA.Performed at: [facility] [address] [id number] Director: Sergio Tovar PhD, Phone: [phone] Start: 01-13-2025 Immunoglobulin M measurement Trang Carr MD Work Phone: Start: 01-13-2025 Serum immunofixation Ch porfirio Carr MD Work Phone: Comment on above: No monoclonality det ected. Start: 01-13-2025 Measurement of Borre sravanthi burgdorferi antibody Trang Carr MD Work Phone: Comment on above: Lyme antibodies not detected. Reflex testing is notindicated.No laboratory evidence of infection with B. burgdorferi(Lyme disease). Negative results may occur in patientsrecently infected (less than or equal to 14 days) with B.burgdorferi. If recent infection is suspected, repeattesting on a new sample collected in 7 to 14 days isrecommended.Performed at: [facility] [place] [id number] Director: Sergio Tovar PhD, Phone: [phone] Start: 01-13-2025 Screening mammography C livan Carr MD Work Phone: Start: 12-04-2024 Bacteria identification test Trang Carr MD Work Phone: Start: 07-31-2024 Cta hrt cornry art/b ypass grfts contrst 3d post [facility] Work Phone: Start: 07-31-2024 Lipid 1996 panel - S mary lou or Plasma Molly Kirby OD Work Phone: Start: 07-31-2024 Assay of troponin quantitative [facility] Work Phone: Start: 07-31-2024 Lipid panel Darbykajal Velasco [facility] Work Phone: Start: 07-30-2024 Assay of troponin quantitative [facility] Work Phone: Start: 07-30-2024 Electrocardiogram Yisel Josue [...] count with white cell differential, automated Yisel Josue Work Phone: Start: 09-06-2019 Complete [...] by Detection limit <= 0.005 mIU/L Yisel Mollymanda Josue Work Phone: Start: 09-06-2019 Troponin measurement Ze pamela Josue Work Phone: Start: 02-17-2015 Mammography Dipak otero Plan of Treatment Date Care Activity Detail Author Start: 10-02-2033 Tetanus vaccination Tetanus: Every 10yrs [facility] Start: 10-02-2033 Urine microalbumin profile DTaP,Tdap,Td Vaccine (2 - Td or Tdap) [facility] Start: 07-31-2029 Lipid panel Lipid Screening [facility] Start: 11-29-2027 Diabetes Screening Diabetes Screening [facility] Start: 02-22-2026 Diabetes Screening Diabetes Screening [facility] Start: 04-12-2025 Influenza vaccination Influenza Vaccine (Season Ended) [facility] Start: 01-13-2025 Serum immunofixation [facility] Start: 08-12-2024 Advance Directive Discussion Advance Directive Discussion [facility] Start: 04-12-2024 COVID-19 Vaccine ( season) COVID-19 Vaccine ( season) [facility] Start: 04-12-2024 Influenza vaccination [facility] Start: 01-02-2024 Covid-19 Vaccine ( season) Covid-19 Vaccine ( season) [facility] Start: 12-13-2023 Screening for malignant neoplasm of breast [facility] Start: 08-12-2023 Advance Directive Discussion Advance Directive Discussion [facility] Start: 08-12-2023 Behavioral Health Screening Behavioral Health Screening [facility] Start: 08-12-2022 ADVANCE DIRECTIVE DISCUSSION ADVANCE DIRECTIVE DISCUSSION [facility] Start: 08-12-2022 DEPRESSION ASSESSMENT DEPRESSION ASSESSMENT [facility] Start: 05-17-2021 Pneumococcal Vaccine: 50+ (2 of 2 - PPSV23) Pneumococcal Vaccine: 50+ (2 of 2 - PPSV23) [facility] Start: 05-17-2021 Pneumococcal Vaccine: 65+ (2 of 2 - PPSV23 or PCV20) Pneumococcal Vaccine: 65+ (2 of 2 - PPSV23 or PCV20) [facility] Start: 07-12-2020 Pneumococcal Vaccine: Age 50+ (2 of 2 - PPSV23) Pneumococcal Vaccine: Age 50+ (2 of 2 - PPSV23) [facility] Start: 07-12-2020 Pneumococcal Vaccine: Age 50+ (2 of 2 - PPSV23, PCV20, or PCV21) Pneumococcal Vaccine: Age 50+ (2 of 2 - PPSV23, PCV20, or PCV21) [facility] Start: 09-22-2019 End: 09-22-2019 Office Visit 09/22/2019 Office Visit Cardiology iYsel Josue MD [address] [place] [address] [phone] Kimo Vasquez MD [address] [place] [address] [phone] [facility] Start: 04-12-2019 Influenza vaccination given SEQUENTIAL INFLUENZA VACCINE (#1) [facility] Start: 02-18-2016 Screening mammography Mammogram [facility] Start: 12-03-2015 BONE DENSITY BONE DENSITY [facility] Start: 12-03-2015 Fall risk assessment Falls Risk Assessment [facility] Start: 12-03-2015 Pneumococcal vaccination PNEUMOCOCCAL VACCINE AGE 65+ (1 of 2 - PCV13) [facility] Start: 12-03-2015 PNEUMOCOCCAL: 65+ (1 - PCV) PNEUMOCOCCAL: 65+ (1 - PCV) [facility] Start: 12-03-2015 Screening for osteoporosis Bone Density Screening [facility] Start: 2010 Respiratory Syncytial Virus Immunization: Risk, 60-74 Risk, or 75+ (1 - Risk 60-74 years 1-dose series) Respiratory Syncytial Virus Immunization: Risk, 60-74 Risk, or 75+ (1 - Risk 60-74 years 1-dose series) [facility] Start: 2000 Administration of herpes zoster vaccine Zoster Vaccines (1 of 2) [facility] Start: 2000 Screening for malignant neoplasm of colon Flexible sigmoidoscopy [facility] Start: 2000 SHINGRIX VACCINE (1 of 2) SHINGRIX VACCINE (1 of 2) [facility] Start: 12-03-1995 COLOGUARD (FIT-DNA) COLOGUARD (FIT-DNA) [facility] Start: 12-03-1995 Colonoscopy COLONOSCOPY [facility] Start: 12-03-1995 COLORECTAL CANCER SCREENING COLORECTAL CANCER SCREENING [facility] Start: 12-03-[address] COLONOGRAPHY [facility] Start: 12-03-1995 DIABETES SCREEN DIABETES SCREEN [facility] Start: 12-03-1995 FECAL OCCULT BLOOD FECAL OCCULT BLOOD [facility] Start: 12-03-1995 Lipid panel Lipid Screening [facility] Start: 12-03-1995 LIPID SCREEN LIPID SCREEN [facility] Start: 12-03-1995 Screening for malignant neoplasm of colon [facility] Start: 12-03-1995 SIGMOIDOSCOPY SIGMOIDOSCOPY [facility] Start: 1990 Mammography MAMMOGRAM [facility] Start: 1969 Urine microalbumin profile DTAP,TDAP,TD (1 - Tdap) [facility] Start: 1968 Anxiety Screening Anxiety Screening [facility] Start: 1968 Depression Screening Depression Screening [facility] Start: 1968 HEPATITIS C SCREENING HEPATITIS C SCREENING [facility] Start: 1968 Hepatitis C screening Hepatitis C Screening [facility] Start: 1962 Depression screening using PHQ-9 (Patient Health Questionnaire 9) score Depression Screening/Follow-Up (PHQ-2/9) [facility] Start: 1953 History and physical examination, annual for health maintenance Wellness Visit [facility] Start: 1953 Medicare Wellness Visit Medicare Wellness Visit [facility] Start: 1950 Fall risk assessment Falls Risk Assessment [facility] Start: 1950 Hepatitis C antibody, confirmatory test HEPATITIS C SCREENING [facility] Start: 1950 Screening for malignant neoplasm of colon [facility] Start: 1950 Screening for osteoporosis Dexa Scan [facility] Start: 1950 Screening mammography Mammogram [facility] Start: 1950 Tetanus vaccination TETANUS EVERY 10 YR [facility] End: 09-11-2019 48 hour ambulatory electrocardiographic monitoring Holter monitor - 48 hour Cardiac Services Routine Tachycardia Once for 1 Occurrences starting 09/11/2019 until 09/11/2019 [facility] Comment on above: Once for 1 Occurrences starting 09/11/19 20 until 09/11/2019 Ambulatory ECG Event Monitor Amb ulatory ECG Event Monitor Cardiac Services Routine Chest pain, unspecified type Palpitations Ordered: 12/03/2024 [facility] Work Phone: Comment on above: Ordered: 12/03/2024 [facility] Heart and [place] ry arteries WO and W contrast IV CT CCTA Heart With And Without Contrast Imaging Routine 07/31/2024 10:30 AM EST [facility] Work Phone: Aquilino Welch virus c apsid IgG Ab [Units/volume] in Serum [facility] Aquilino Welch virus c apsid IgM Ab [Units/volume] in Serum [facility] Aquilino Welch virus n uclear IgG Ab [Units/volume] in Cerebral spinal fluid [facility] Aquilino-Welch virus s erologic test [facility] IgA [Mass/volume] in Serum or Plasma [facility] IgG [Mass/volume] in Serum or Plasma [facility] IgM [Mass/volume] in Serum or Plasma [facility] Immunizations Immunization Date Immunization Notes Care Provider Fa [facility] 05-31-2022 influenza virus vaccine, unspecified formulation Molly Kirby OD Work Phone: [facility] Payers Date Payer Category Payer Self-pay 2021 Medicare AETNA MEDICARE A ETNA MEDICARE PPO [id number] 2021-Present [phone] [address] [place] [address] O [id number] 2020 Private Health Insurance [employer] [facility] Address: [address] [place] [address] [address] [place] [address] [id number] 2020 Unknown [id number] 2019 Medicare AETNA [facility] AETNA MEDICARE PLAN (PPO) [id number] 2019-Present [id number] 2019 Medicare PPO AETNA MEDICARE P LIN (PPO) [id number] 2015 Private Health Insurance [id number] 2015 Unknown AETNA\AETPAMELA MACIAS 1950 Unknown [id number] 2.16840.1.225819.3.579.2. 9 1950 Unknown [id number] 2.16840.1.324404.3.579.2. 1068 1950 Unknown [id number] 2.16.840.1.279911.3.579.2. 1068 1950 Unknown [id number] 2.16840.1.628108.3.579.2. 1068 1950 Unknown [id number] 2.16.840.1.545548.3.579.2. 1069 1950 Unknown [id number] 2.16.840.1.995413.3.579.2. 902 1950 Unknown [id number] 2.16.840.1.860326.3.579.2. 903 1950 Unknown [id number] 2.16.840.1.283918.3.579.2. 90 1950 Unknown [id number] 2.16.840.1.028436.3.579.2. 903 Unknown [id number] 2.16.840.1.690007.3.579.2. 462 Unknown [id number] 2.16.840.1.188791.3.579.2. 462 Unknown [id number] 2.16.840.1.554925.3.579.2. 462 Unknown [id number] 2.16.840.1.879905.3.579.2. 462 Unknown [id number] 2.16.840.1.710358.3.579.2. 462 Unknown [id number] 2.16.840.1.684915.3.579.2. 462 Unknown [id number] 2.16.840.1.461588.3.579.2. 462 Unknown [id number] 2.16840.1.879636.3.579.2. 462 Unknown [id number] 2.16.840.1.640023.3.579.2. 462 Unknown [id number] 2.16.840.1.469584.3.579.2. 462 Unknown [id number] 2.16.840.1.267920.3.579.2. 462 Social History Date Type Detail Facility Start: 09-08-2014 End: 09-06-2019 Tobacco smoking status NHIS Never smoker [facility] Start: 09-06-2019 End: 12-03-2024 Alcohol intake Current drinker of alcohol (finding) [facility] Start: 09-06-2019 Alcohol Comment social [facility] Start: 1950 Sex Assigned At Not on file [facility] Tobacco smoking consumption unknown [facility] Start: 09-08-2014 End: 09-06-2019 Tobacco use and exposure Smokeless tobacco non-user [facility] Start: 07-13-2021 End: 01-12-2025 Alcohol intake Ex-drinker (finding) [facility] Start: 07-13-2021 End: 07-30-2024 Alcohol intake [facility] Start: 09-08-2014 Alcohol Comment Occassionally [facility] Start: 1950 Sex Assigned At Female [facility] Start: 05-25-2021 End: 07-30-2024 Tobacco use panel [facility] National Score (1-10 0), lower number is lower risk Not on file [facility] Has the [employer], [employer], [employer], or water company threatened to shut off services in your home in past 12Mo No [facility] ([facility]We[facility] worried wheth er (my/our) food would run out before (I/we) got money to buy more. Never true [facility] Start: 09-11-2019 Gender identity Identifies as female gender (finding) [facility] Start: 09-11-2019 Sexual orientation Heterosexual (finding) [facility] Start: 11-05-2024 End: 11-30-2024 Sex Female (finding) [facility] Functional Status Date Assessment Result Facility NEGATED: Highlighted row Functional performance Functional status health issues are not documented [facility] Work Phone: Mental Status Date Assessment Result Facility NEGATED: Highlighted row Cognitive function [Interpretation] Cognitive status health issues are not documented [facility] [facility] Phone: Clinical Notes 10-04-2022 to 01-26-2025 Telephone Encounter - Nita Null RN - 01/26/2025 3:40 PM EDTTelephone Encounter - Nita Null RN - 01/26/2025 3:40 PM EDTTelephone Encounter - Nita Null RN - 01/25/2025 2:58 PM EDT Note Date & Type Note Facility 01-26-2025 Telephone encounter Note Reviewed monitor results with pt per Dr. Dixon. Pt expressed appreciation and understanding and denies any further questions at this time. [facility] 01-26-2025 Miscellaneous Notes Reviewed monitor results with pt per Dr. Dixon. Pt expressed appreciation and understanding and denies any further questions at this time. Left a voicemail for pt to discuss test results. Asked that she call back. ----- Message from S Day sent at 01/25/2025 2:39 PM EDT ----- Great news, monitor shows no atrial fibrillation and very low burden of PVCs. Everything that she triggered was normal sinus rhythm or rare PVCs or PACs which are nothing to worry about ----- Message ----- From: Background, Pacemate Sent: 01/25/2025 7:42 AM EDT To: Isabella Dixon MD documented in this encounter [facility] 01-25-2025 Telephone encounter Note Left a voicemail for pt to discuss test results. Asked that she call back. [facility] 01-25-2025 Telephone encounter Note ----- Message from S Day sent at 01/25/2025 2:39 PM EDT ----- Great news, monitor shows no atrial fibrillation and very low burden of PVCs. Everything that she triggered was normal sinus rhythm or rare PVCs or PACs which are nothing to worry about ----- Message ----- From: Background, Pacemate Sent: 01/25/2025 7:42 AM EDT To: Isabella Dixon MD [facility] 01-25-2025 Miscellaneous Notes Left a voicemail for pt to discuss test results. Asked that she call back. ----- Message from S Day sent at 01/25/2025 2:39 PM EDT ----- Great news, monitor shows no atrial fibrillation and very low burden of PVCs. Everything that she triggered was normal sinus rhythm or rare PVCs or PACs which are nothing to worry about ----- Message ----- From: Background, Pacemate Sent: 01/25/2025 7:42 AM EDT To: Isabella Dixon MD documented in this encounter [facility] 01-12-2025 Instructions Molly Kirby OD - 01/12/2025 3:10 PM EDT ASSESSMENT/PLAN: 1. Myopia of both eyes - ICD9: 367.1, ICD10: H52.13 (primary diagnosis) 2. Regular astigmatism of both eyes - ICD9: 367.21, ICD10: H52.223 3. Presbyopia - ICD9: 367.4, ICD10: H52.4 Continue to wear her glasses with the update. Continue to monitor her ocular health Recommended yearly exams. documented in this encounter [facility] 01-12-2025 Note HNO ID: [id number] Author: MOLLY KIRBY OD Service: ? Author Type: HEALTHCARE NETWORK CONSULTANT Type: Progress Notes Filed: 01/12/2025 15:10 Note [...] neuro exam findings as obtained by others. [facility] 01-12-2025 History of Present illness Narrative ASSESSMENT/PLAN: 1. Myopia of both eyes - ICD9: 367.1, ICD10: H52.13 (primary diagnosis) 2. Regular astigmatism of both eyes - ICD9: 367.21, ICD10: H52.223 3. Presbyopia - ICD9: 367.4, ICD10: H52.4 Continue to wear her glasses with the update. Continue to monitor her ocular health Recommended yearly exams. Molly Kirby, OD I have confirmed and edited as necessary the relevant ophthalmic history, ROS, and the neuro exam findings as obtained by others. documented in this encounter [facility] 12-04-2024 Telephone encounter Note Error. [facility] 12-04-2024 Miscellaneous Notes Error. documented in this encounter [facility] 12-03-2024 Instructions Nita Null RN - 12/03/2024 2:42 PM EDT Images from the original note were not included. How to Contact your Care Team: Provider: Dr. Isabella Dixno MD Clinic Nurse: BRIANNE Moya [facility] MA: RAHUL Pantoja REFILLS: When in need for refills please call your care team or the office at [phone]. Please include medication name, pharmacy name, and [...] we will call with results and plan [facility] Holter Department GladysRAHUL [phone] [email or web address] ([employer]) [phone] IMPORTANT! [employer] will be calling you from an [phone] number. You MUST answer this phone call and verify your address with the company, otherwise the monitor WILL NOT be mailed to you. If you do not receive a call from them within the week, feel free to reach out to them to verify your address. MONITOR END DATE: 30 days after placement *If you need help putting your monitor on, please call [phone] to schedule a nurse visit to go over instructions and device placement. Monitor Essentials 1. The device is waterproof. Showers are OKAY. Make sure you shave chest hair and clean and dry the skin before placing the monitor on your chest. 2. The monitor battery typically lasts 3-5 days, after this timeframe it will need to be charged. The charger tester is included in the box. 3. Extra patches are inside of the box. Sensitivity patches will need to be mailed by [employer] if needed. If you are wearing the monitor for 30 days, I suggest calling [employer] and requesting extra patches to be mailed to you once you leave the office so you receive them before you run out. [phone] 4. Please DO NOT return the device to [facility] after the study has been completed. It will be the patient's responsibility to return the device to [facility]. 5. After the device is mailed, it will take 2-3 weeks for your results to be returned to you. It is the ordering provider s nurse responsibility to call you with the results. [employer] Drop Off Box Locations Number for [facility]: [id number] ST[facility] [address] [place], [address] [address] [place], [address] [email or web address] [place], [address] [facility] STORE # [id number] [address] [place], [address] [facility] ST[address] [place], [address] [facility] [address] [facility], [place], [address] [facility] [address] [place], [address] [employer] [facility] ST[facility] [address] [place], [address] [facility] [address] [facility], [place], [address] [place] [address] [place], [address] [facility] ST[facility] [address][id number] [facility] [address] [place], [address] [facility] [address] [facility] [place], [address] [facility] [address] [place], [address] [address] [place], [address] [facility] STORE # 1867 [address] [place], [address] [employer] STORE [address] [place], [address] documented in this encounter [facility] 12-03-2024 History of Present illness Narrative General Cardiology New Patient Clinic Consult [facility] 12/03/2024 Isabella Dixon MD [address] [place] [address], 3rd Floor Medical Office Building [facility] [address] Patient: Chinmay Grimaldo Date of : [...] or fail to improve. Isabella Dixon MD, [facility] Non-Invasive Cardiology [facility] P:[phone] F:[phone] History of Present Illness: Chinmay Grimaldo is [...] 05/2003 no angiographically definable CAD CYSTO 1997 Family History Problem Relation Age of Onset [...] Image Quality: Good, No significant artifacts. 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 0.4mg [...] tablet, Rfl: 0 documented in this encounter [facility] 12-03-2024 Note General Cardiology N ew Patient Clinic Consult [facility] 12/03/2024 Isabella Dixon MD [address] [place] [address] 3rd Floor Medical Office [facility] [address] Patient: Chinmay Grimaldo Date of : [...] or fail to improve. Isabella Dixon MD, [facility] Non-Invasive Cardiology [facility] P:[phone] F:[phone] ------ History of Present Illness: Chinmay Grimaldo [...] Image Quality: Good, No significant artifacts. 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 0.4mg [...] mild calcific plaque (more content not included)... [facility] 07-31-2024 Progress note Formatting of t his note might be different from the original. Patient alert and oriented at time of discharge. After visit summary provided. Patient acknowledges understanding of discharge teaching with teach back. [facility] 07-31-2024 Miscellaneous Notes Patient alert and oriented [...] Outcome: Partially Met documented in this encounter [facility] 07-31-2024 Note HMS DISCHARGE SUMMAR Y -- [facility] Chinmay Grimaldo Admitted: 07/30/2024 Discharge Date: 07/31/24 PCP Handoff Recommended Outpatient Testing Follow up with PCP, referral sent to cardiology Results Pending At Discharge None Clinical Summary Chinmay Grimaldo is a 73 y.o. female patient of Trang Carr MD with history of GERD who presented to [facility] on 07/30/2024 with chest pain. Chest pain [...] Follow Up: Trang Carr MD [address] [facility] [address] Follow up Day, Isabella Otto MD [address] [place] [address] Follow up Referral sent Condition at Discharge: Good Disposition: Home I reviewed discharge recommendations with the patient in person. Patient instructions, including activity, were given to the patient/family at discharge. On day of discharge I saw Chinmay Grimaldo and spent: > 30 minutes on discharge. Completed by: Darby Velasco CNP on 07/31/24, 1:20 PM AUTHENTICATED BY DARBY VELASCO, ON 07/31/2024 13:26:58 [facility] 07-31-2024 Hospital course Narrative [facility] DISCHARGE SUMMARY -- [facility] Chinmay Grimaldo Admitted: 07/30/2024 Discharge Date: 07/31/24 PCP Handoff Recommended Outpatient Testing Follow up with PCP, referral sent to cardiology Results Pending At Discharge None Clinical Summary Chinmay Grimaldo is a 73 y.o. female patient of Trang Carr MD with history of GERD who presented to [facility] on 07/30/2024 with chest pain. Chest pain [...] Trang Carr MD [address] [facility] [id number] Follow up Day, Isabella Otto MD [address] [facility] [address] Follow up Referral sent Condition at Discharge: Good Disposition: Home I reviewed discharge recommendations with the patient in person. Patient instructions, including activity, were given to the patient/family at discharge. On day of discharge I saw Chinmay Grimaldo and spent: > 30 minutes on discharge. Completed by: Darby Velasco CNP on 07/31/24, 1:20 PM documented in this encounter [facility] 07-31-2024 Nurse procedure note CCTA scan explained, questions answered. Denies taking any phosphodiesterase inhibitors for any reason [facility] 07-31-2024 Plan of care note Problem: Actual [...] level of psychosocial functioning Outcome: Partially Met [facility] 07-31-2024 Plan of care note Problem: Actual [...] level of psychosocial functioning Outcome: Partially Met [facility] 07-30-2024 Emergency department Note Report called to inpatient nurse June DECKER. Patient history, current status, and reason for admission discussed. No further questions asked at this time. [facility] 07-30-2024 Emergency department Note Report called to inpatient nurse June DECKER. Patient history, current status, and reason for admission discussed. No further questions asked at this time. Attempt to call report to inpatient nurse. Nurse will call this nurse back via [employer] per charge. Patient resting in bed at [...] light within reach. Associated Order(s): EKG 12-lead [facility] ED note NAME: Chinmay Grimaldo 73 y.o. CSN: [id number] PCP: Trang Carr MD History: Chief Complaint: [...] with her PCP. Denies history of CAD [place] PE pneumothorax she said about 15 years [...] All other components within normal limits Narrative: [facility] has implemented the eGFR calculation [...] Procedure Abnormality Status --------- ------ CBC Auto Differential[[id number]] Final result Please view results for these tests on the individual orders. TROPONIN TROPONIN TROPONIN CBC WITH AUTO DIFFERENTIAL XR Chest 1 View Final Result 1. Minimal linear atelectasis or scarring in the left lower lung zone. 2. Normal heart size. 3. No acute osseous abnormality. GJT/alt Workstation ID: [id number] CT CCTA Heart With And Without Contrast (Results Pending) CCTA Heart (Outside Sales Advertising Executive read) (Results Pending) Procedures: EKG 12-lead Date/Time: 07/30/2024 7:36 PM Performed by: Yisel Josue MD Authorized by: Yisel Josue MD Interpreted by ED attending physician Rhythm: sinus rhythm BPM: 75 Conduction: conduction normal ST Segments: ST segments normal T Waves: T waves normal Clinical impression: non-specific ECG Comments: EKG with normal sinus rhythm rate of 75 beats per minutes VT interval 148 ms QRS duration 84 ms [...] No Yisel Josue MD ED Attending Physician [facility] Emergency Department (Please note that [...] when she eats. documented in this encounter [facility] 07-30-2024 Emergency department Note Attempt to call report to inpatient nurse. Nurse will call this nurse back via [employer] per charge. [facility] 07-30-2024 Emergency department Note Patient resting in [...] in place and call light within reach. [facility] 07-30-2024 History and physical note [facility] HISTORY AND PHYSICAL -- [facility] Patient Name: Chinmay Grimaldo : 1950 MR #: [id number] Admit Date: 07/30/2024 Physicians: Trang Carr MD (Family); No ref. provider found (Referring) Chinmay Grimaldo is a 73 y.o. female patient of Trang Carr MD with history of GERD who presented to [facility] on 07/30/2024 with chest pain. Chest pain [...] with history of GERD who presented to [facility] on 07/30/2024 with chest pain. Pt stated she started having chest pain earlier today. She was unable to describe the pain, just described it as a sensation in the left side of her chest. It did not worsen with activity or improve with rest. Did not change with deep inspiration. She went to [facility] for further evaluation. EKG unremarkable. CXR [...] to monitor and adjust care as needed. [facility] 07-30-2024 History and physical note [facility] HISTORY AND PHYSICAL -- [facility] Patient Name: Chinmay Grimaldo : 1950 MR #: [id number] Admit Date: 07/30/2024 Physicians: Trang Carr MD (Family); No ref. provider found (Referring) Chinmay Grimaldo is a 73 y.o. female patient of Trang Carr MD with history of GERD who presented to [facility] on 07/30/2024 with chest pain. Chest pain [...] with history of GERD who presented to [facility] on 07/30/2024 with chest pain. Pt stated she started having chest pain earlier today. She was unable to describe the pain, just described it as a sensation in the left side of her chest. It did not worsen with activity or improve with rest. Did not change with deep inspiration. She went to [facility] for further evaluation. EKG unremarkable. CXR [...] EST Associated attestation - Jere Colon DO Tish - 07/31/2024 1:58 AM EST I personally [...] care as needed. documented in this encounter [facility] 07-30-2024 Emergency department Note Patient resting in [...] in place and call light within reach. [facility] 07-30-2024 Emergency department Note Patient resting in [...] in place and call light within reach. [facility] 07-30-2024 Physician Emergency department Note Associated Order(s): EKG 12-lead [facility] ED note NAME: Chinmay Grimaldo 73 y.o. CSN: [id number] PCP: Trang Carr MD History: Chief Complaint: [...] with her PCP. Denies history of CAD [place] PE pneumothorax she said about 15 years [...] All other components within normal limits Narrative: [facility] has implemented the eGFR calculation [...] Procedure Abnormality Status --------- ------ CBC Auto Differential[[id number]] Final result Please view results for these tests on the individual orders. TROPONIN TROPONIN TROPONIN CBC WITH AUTO DIFFERENTIAL XR Chest 1 View Final Result 1. Minimal linear atelectasis or scarring in the left lower lung zone. 2. Normal heart size. 3. No acute osseous abnormality. GJT/alt Workstation ID: [id number] CT CCTA Heart With And Without Contrast (Results Pending) CCTA Heart (Outside Sales Advertising Executive read) (Results Pending) Procedures: EKG 12-lead Date/Time: 07/30/2024 7:36 PM Performed by: Yisel Josue MD Authorized by: Yisel Josue MD Interpreted by ED attending physician Rhythm: sinus rhythm BPM: 75 Conduction: conduction normal ST Segments: ST segments normal T Waves: T waves normal Clinical impression: non-specific ECG Comments: EKG with normal sinus rhythm rate of 75 beats per minutes VT interval 148 ms QRS duration 84 ms [...] No Yisel Josue MD ED Attending Physician [facility] Emergency Department (Please note that portions of this note have been completed with a voice recognition software. Efforts were made to correct any errors, but occasionally words are mis-transcribed.) Yisel Josue MD 07/31/24 1004 [facility] 07-30-2024 Emergency department Note Assumed care of this patient at this time,.Pt rounded on at this time. Pt resting comfortably. Denies needs at this time. Updated on plan of care. Call light within reach. [facility] 07-30-2024 Emergency department Note Patient reports chest pain on and off x 1 month. Patient reports she had a helter monitor a 1 week and just looked up her results tonight. [facility] 07-30-2024 Emergency department Note ED provider at the bedside. [facility] 07-30-2024 Emergency department Triage note Pt to ED with c/o chest pain that started today. Pt states it flares up when she eats. [facility] 03-23-2024 Instructions Molly Kirby OD - 03/23/2024 2:25 PM EDT ASSESSMENT/PLAN: 1. Dry eyes - ICD9: 375.15, ICD10: H04.123 Recommended the use of artificial tears four times per day to maintain good vision and comfort. Discussed contacting the office if there is a change in comfort or vision. Suggested dilated eye exam documented in this encounter [facility] 03-23-2024 Note HNO ID: [id number] Author: MOLLY KIRBY OD Service: ? Author Type: HEALTHCARE NETWORK CONSULTANT Type: Progress Notes Filed: 03/23/2024 14:26 Note [...] neuro exam findings as obtained by others. [facility] 03-23-2024 History of Present illness Narrative [...] obtained by others. documented in this encounter [facility] 01-20-2024 Instructions Molly Kirby OD - 01/20/2024 [...] to be scheduled. documented in this encounter [facility] 01-20-2024 Note HNO ID: [id number] Author: MOLLY KIRBY OD Service: ? Author Type: HEALTHCARE NETWORK CONSULTANT Type: Progress Notes Filed: 01/20/2024 08:32 Note [...] neuro exam findings as obtained by others. [facility] 01-20-2024 History of Present illness Narrative [...] yearly dilated exam to be scheduled. Molly Kirby, ANIBAL I have confirmed and edited as necessary the relevant ophthalmic history, ROS, and the neuro exam findings as obtained by others. documented in this encounter [facility] 10-04-2022 Instructions Romero Kirby II, OD - 10/04/2022 12:43 PM [...] of its relevant components. 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 [facility] noteNo assessment information availableWGreene [facility] Hospital Work Phone: Evaluation note* Diagnosis Subconjunctival hemorrhage of left eye- Primary documented in this encounter [facility] note* Diagnosis Dry eyes- Primary Tear film insufficiency, unspecified documented in this encounter [facility] note* Diagnosis Cardiac arrhythmia, unspecified cardiac arrhythmia type- Primary Palpitations Chest discomfort Other chest pain Chest pain- Primary Unspecified chest pain Chest pain, unspecified type documented in this encounter [facility] note* Diagnosis Cardiac arrhythmia, unspecified cardiac arrhythmia type- Primary Palpitations Chest discomfort Other chest pain Palpitations- Primary Chest pain, unspecified type documented in this encounter [facility] note* Diagnosis Myopia of both eyes- Primary Myopia Regular astigmatism of both eyes Regular astigmatism Presbyopia documented in this encounter [facility] Discharge instructions* Attachments The following attachments cannot be sent through Care Everywhere. * Chest Pain (Burmese) documented in this encounterOhioHealthReason for referral (narrative)No reason for referral information availableWGreene Memorial Hospital Work Phone: Summary Purpose Family History No Family History Records FoundNo Family History Records FoundNo Family History Records FoundNo Family History Records FoundNo Family History Records FoundNo Family History Records FoundNo Family History Records FoundNo Family History Records FoundNo Family History Records Found Advance Directives No Advanced Directives Records FoundDocuments on File Type Date Recorded Patient Vessel Manager Expl anation Advance Directives and Livin g Will 09/06/2019 5:10 PM Documents on File Type Date Recorded Patient Vessel Manager Expl anation Advance Directives and Livin g Will 09/06/2019 5:10 PM Advance Directives and Livin g Will 09/11/2019 12:00 AM Documents on File Type Date Recorded Patient Vessel Manager Expl anation Advance Directives and Livin g Will 09/06/2019 5:10 PM Advance Directives and Livin g Will 09/11/2019 12:00 AM Documents on File Type Date Recorded Patient Vessel Manager Expl anation Advance Directives and Living Will 09/11/2019 Date Activated Date Inactivated Comments 07/30/2024 9:33 PM 07/31/2024 4:30 PM Documents on File Type Date Recorded Patient Vessel Manager Expl anation Advance Directives and Living Will 09/11/2019 Date Activated Date Inactivated Comments 07/30/2024 9:33 PM 07/31/2024 4:30 PM Reason for Referral Status Reason Specialty Diagnoses / Procedures Referred By Contact Referred To Contact Pending Review Specialty Services Required/Patien t's Best Interest Cardiology Yisel oJsue MD [address] [place] [id number] Status Reason Specialty Diagnoses / Procedures Referred By Contact Referred To Contact Pending Review Cardiology Diagnoses Tachycardia Procedures Holter monitor - 48 hour Dipak Seth MD [address] [place] [address] Discharge Instructions * Attachments The following attachments cannot be sent through Care Everywhere. * Hypokalemia (Burmese) * Palpitations (Burmese) documented in this encounter Assessments Diagnosis Palpitations Hypokalemia Hypopotassemia Diagnosis Cardiac arrhythmia, unspecified cardiac arrhythmia type Palpitations Chest discomfort Other chest pain Diagnosis Tachycardia Unspecified tachycardia Instructions Name Dates Details Instructions not documented History of Present Illness * Kimo Vasquez MD - 09/22/2019 9:27 AM EST OFFICE CONSULTATION NOTE [facility] [address] [facility] [address] [facility] [id number] Physicians: Dipak Seth MD (Family); Yisel Josue [...] Reason for Visit Chief Complaint SEE ORDER Chief Complaint Admit Date PHARGNGITIS December 04, 2024 2:5 3pm SCREENING January 13, 2025 10:06 am Additional Source Comments INFORMATION SOURCE (unrecogn ized section and content) DATE CREATED AUTHOR 04/17/2019 [facility] DATE CREATED AUTHOR AUTHOR'S ORGANIZ ATION 10/31/2020 [employer] DATE CREATED AUTHOR AUTHOR'S ORGANIZ ATION 01/25/2022 [facility] DATE CREATED AUTHOR AUTHOR'S ORGANIZ ATION 12/15/2022 [facility] DATE CREATED AUTHOR AUTHOR'S ORGANIZ ATION 12/01/2023 [facility] DATE CREATED AUTHOR AUTHOR'S ORGANIZ ATION 12/04/2024 [facility] DATE CREATED AUTHOR AUTHOR'S ORGANIZ ATION 12/05/2024 [facility] DATE CREATED AUTHOR AUTHOR'S ORGANIZ ATION 01/13/2025 [facility] DATE CREATED AUTHOR AUTHOR'S ORGANIZ ATION 02/08/2025 [facility] Reason for Visit (unrecogniz ed section and content) Reason Comments increased heart rate Reason Comments Establish Care hx of palpitations. no complaints of palps currently. Holter completed. Status Reason Specialty Diagnoses / Procedures Referred By Contact Referred To Contact Pending Review Specialty Services Required/Patien t's Best Interest Cardiology Yisel Josue MD [address] [place] [address] Status Reason Specialty Diagnoses / Procedures Referred By Contact Referred To Contact Pending Review Cardiology Diagnoses Tachycardia Procedures Holter monitor - 48 hour Dipak Seth MD [address] [place] [address] Reason Comments Blepharitis Evaluation Reason Comments Red Eye Left Eye Reason Comments Eye Pain Left Eye Reason Comments Chest Pain Specialty Diagnoses / Procedures Referred By Contac t Referred To Contact Diagnoses Chest pain Referral ID Status Reason Start Date Expiration Date Visits Re quested Visits Authorized [id number] 1 1 Reason Comments Palpitations Tachycardia Specialty Diagnoses / Procedures Referred By Contac t Referred To Contact Cardiology Diagnoses Chest pain, unspecified type [facility] [address] [place] [address] Phone: tel: fax: Isabella Dixon MD [address] [place] [address] Phone: tel: fax: Referral ID Status Reason Start Date Expiration Date V isits Requested Visits Authorized [id number] Pending Review 08/31/2024 08/31/2025 1 1 Reason Onset Date Comments Medication Refill 12/04/2024 Reason Onset Date Comments Medication Refill 12/03/2024 Reason Comments Yearly Exam Olga Guevara RN - 09/06/2019 4:57 PM Yisel Antonio MD - 09/06/2019 4:56 PM EST ED Notes (unrecognized secti on and content) PT STATES SHE HAS BEEN NAUSEATED WITH DISCOMFORT IN HER R CHEST. PT STATES HER HEART RATE ON HER FITBIT WAS 190. PT ALSO STATES SHE FELT DIZZY. DENIES PREVIOUS HISTORY. ED PROVIDER NOTE [facility] EM[facility]GENCY [facility] NAME: Chinmay Grimaldo AGE: 68 y.o. : 1950 VISIT DATE: 09/06/2019 CSN: [id number] PCP: Dipak Seth MD Chief Complaint Patient [...] file Gets together: Not on file Attends gnosticism service: Not on file Active member of [...] Range D-Dimer 0.43 0.27 - 0.49 mcg/mL [facility] Hepatic Function Panel (LFT) Result Value Ref [...] Colorless, Yellow Clarity, Urine Clear Clear Specific [place] 1.009 1.005 - 1.025 pH, Urine 5.0 [...] If symptoms worsen [address] [facility] [address] 2. [facility]. Specialty: Cardiology Why: If symptoms worsen [address] [facility] Medical Office [facility] [id number] Contact information for after-discharge care Follow-up information has not been specified. Yisel Josue MD 09/06/19 9963 documented in this encounter Assessment & Plan [...] or prosecute any alcohol or drug abuse patient.[facility] HospitalIn the event this information is protected by the Federal Confidentiality of Alcohol and Drug Abuse Patient Records regulations: The Federal rules restrict any use of the information to criminally investigate or prosecute any alcohol or drug abuse patient.[facility] HospitalIn the event this information is protected by the Federal Confidentiality of Alcohol and Drug Abuse Patient Records regulations: The Federal rules restrict any use of the information to criminally investigate or prosecute any alcohol or drug abuse patient.[facility] HospitalIn the event this information is protected by the Federal Confidentiality of Alcohol and Drug Abuse Patient Records regulations: The Federal rules restrict any use of the information to criminally investigate or prosecute any alcohol or drug abuse patient.[facility] Care Teams (unrecognized sec tion and content) Day Care Home Mother Relationship Specialty Start Date End Date Dipak [...] Active Sondra Vu DO Attending Provider Active Day Care Home Mother Relationship Specialty Start Date End Date Trang Carr MD [address] [facility] [address] [place] [address] PCP - General Internal Medicine 01/20/24 Day Care Home Mother Relationship Specialty Start Date End Date Trang Carr MD [address] [place] [address] PCP - General Internal Medicine 01/20/24 Day Care Home Mother Relationship Specialty Start Date End Date Trang Carr MD [address] [place] [address] PCP - General Family Medicine 11/25/23 Team Status: Active Member Role Status Jenny Carr MD Primary Care Provider Active Team Status: Inactive Member Role Status Jenny Carr MD Primary Care Provider Active St art: November 24, 2024 End: November 24, 2024 Aroldo Cespedes FILM RENTAL CLERK, FILM RENTAL CLERK-C Attending Provider Active Start: November 24, 2024 End: November 24, 2024 Aroldo Cespedes FILM RENTAL CLERK, FILM RENTAL CLERK-C Referring Provider Active Start: November 24, 2024 End: November 24, 2024 Day Care Home Mother Relationship Specialty Start Date End Date Trang Carr MD [address] [place] [address] PCP - General Family Medicine 11/25/23 Day Care Home Mother Relationship Specialty Start Date End Date Trang Carr MD [address] [place], [place] [address] PCP - General Family Medicine 11/25/23 Team Status: Inactive Member Role Status Jenny Carr MD Primary Care Provider Active St art: December 04, 2024 End: December 04, 2024 Dr. Pb Corrales MD Attending Provider Activ e Start: December 04, 2024 End: December 04, 2024 Dr. Pb Corrales MD Referring Provider Activ e Start: December 04, 2024 End: December 04, 2024 Team Status: Active Member Role Status Jenny Carr MD Primary Care Provider Active St art: January 13, 2025 Trang Carr MD Attending Provider Active Start : January 13, 2025 Trang Carr MD Referring Provider Active Start : January 13, 2025 Team Status: Inactive Member Role Status Jenny Carr MD Primary Care Provider Active St art: January 13, 2025 End: January 13, 2025 Trang Carr MD Attending Provider Active Start : January 13, 2025 End: January 13, 2025 Trang Carr MD Referring Provider Active Start : January 13, 2025 End: January 13, 2025 Day Care Home Mother Relationship Specialty Start Date End Date Trang Carr MD [address] [facility] [address] [place], [place] [id number] PCP - General Internal Medicine 01/20/24 Day Care Home Mother Relationship Specialty Start Date End Date Trang Carr MD [address] [place], [place] [address] PCP - General Family Medicine 11/25/23 Team Status: Inactive Member Role Status Dates Trang Carr MD Primary Care Provider Active St art: January 19, 2025 End: January 19, 2025 Trang Carr MD Attending Provider Active Start : January 19, 2025 End: January 19, 2025 Trang Carr MD Referring Provider Active Start : January 19, 2025 End: January 19, 2025 Day Care Home Mother Relationship Specialty Start Date End Date Trang Carr MD [address] [place], [place] [id number] PCP - General Family Medicine 11/25/23 Goals [...] Nightly, First dose on Andreina 07/30/24 at 7587 4789 (Given - Provider: Dipak Maldonado RN) metoprolol [...] NOT already on a beta-melvina, give 100mg. 0901 (Given - Provid er: Amanda López RN) [...] vardenafil (LEVITRA). DO NOT CRUSH OR CHEW. 0915 (Not Given - Provider: Amanda López RN [...] June Black RN)1113 (Given - Provider: Amanda López RN) Continuous Medication Order 07/29/2024 07/30/2024 07/31/2024 sodium [...] - Provider: Jaden Price, TECHNOLOGIST - Comment: [id number]/) metoprolol (LOPRESSOR) injection 10 mg 10 mg, Intravenous, Every 10 min PRN, 1 hour after oral dose for HR greater than 60 beats per minute AND SBP greater than 90 mmHg., Starting on Sat07/31/24 at 0817, For 3 doses, Pre-Procedure, >>>>>TO BE RELEASED AND GIVEN IN PROCEDURE AREA ONLY<<<<< Push over 3 minutes; may repeat dose 2 times. Notify Radiologist/Outside Sales Advertising Executive if HR remains greater than 60 beats [...] mL, Intravenous, Once in imaging, contrast, Per abstractor (Radiology) for line patency check prior to contrast administration, Starting on Sat07/31/24 at 1005, For 1 dose 1020 (Given - Provid er: Jaden Price TECHNOLOGIST) sodium chloride (PF) (NS) 0.9 % contrast line flush 80 mL (COMPLETED)(Linked Group 1) 80 mL, Intravenous, Once in imaging, contrast, Per abstractor (Radiology), Starting on Sat07/31/24 at 1005, For 1 dose, 30 mL BEFORE contrast administration 50 mL AFTER contrast administration 1020 (Given - Provid er: Jaden Price TECHNOLOGIST) traZODone (DESYREL) tablet 50 mg 50 mg, Oral, Nightly PRN, sleep, Starting on Sat07/30/24 at 2203 Linked Groups Order Group 1: sodium chloride (PF) (NS) 0.9 % contrast line flush 10 mL (COMPLETED)Jump to med 10 mL, Intravenous, Once in imaging, contrast, Per abstractor (Radiology) for line patency check prior to contrast administration, Starting on Sat07/31/24 at 1005, For 1 dose And sodium chloride (PF) (NS) 0.9 % contrast line flush 80 mL (COMPLETED)Jump to med 80 mL, Intravenous, Once in imaging, contrast, Per abstractor (Radiology), Starting on Sat07/31/24 at 1005, For [...] BE BASED ON THE PRIMARY CLINICAL RECORDS. [employer] provides no warranty or guarantee of the accuracy or completeness of information in this document.
--- NOTE | 2025-02-10 07:03 | MRI_ITS ---
EXAM: MRI of the neck without and with contrast CLINICAL HISTORY: Jaw pain COMPARISON: Noncontrast sinus CT 11/28/2024 TECHNIQUE: MRI of the neck performed without and with 12 cc of Clariscan FINDINGS: Symmetric appearance of the orbits. No sinonasal air-fluid levels. Normal nasopharynx. On T1 weighted images there is normal marrow signal within the mandible without edema. On coronal T1 weighted images, the floor of mouth appears intact. Normal parotid glands. Normal oral cavity. Normal submandibular glands. Symmetric vocal folds. Visualized portions thoracic inlet unremarkable. No soft tissue edema. No abscess. No enlarged cervical lymph nodes. Symmetric vocal folds are noted. The inversion recovery images demonstrate the same findings as the fat saturated T2 weighted images. On postcontrast axial and coronal images, no abnormal mucosal enhancement. No abnormal maxillary or mandibular enhancement. MRI/Orbit Face Neck W/WO Contrast IMPRESSION: MRI of the neck without and with contrast is within normal limits. If there is concern related to dentition, CT would be the study of choice Reading Location: [facility]
== END | disposition home or self-care (01) ==
PROVIDERS: PCP Family Medicine; Referring Provider Family Medicine; Visit Provider Family Medicine
DX: R68.84 Jaw pain (principal)
CPT/HCPCS: 70543; A9585

== ENCOUNTER → 2025-03-10 | Outpatient (CLI) | payer MEDICARE, SELFPAY ==
--- NOTE | 2025-03-10 16:55 | CT_ITS ---
PROCEDURE: SOFT TISSUE NECK WITH CONTRAST 03/10/2025 REASON FOR EXAM: PAIN IN JAW THAT RADIATES TO EARS, NECK, AND EYES TECHNIQUE: SOFT TISSUE NECK WITH CONTRAST CONTRAST: Isovue 370 VOLUME: 75 mL One or more dose reduction techniques were used (e.g., Automated exposure control, adjustment of the mA and/or kV according to patient size, use of iterative reconstruction technique). RADIATION DOSE SUMMARY: CTDlvol: 11.25 mGy DLP: 337.2 mGycm COMPARISON: Prior MRI of the neck dated February 11, 2025. FINDINGS: Airway: Midline and patent. Salivary glands: Unremarkable. Lymph nodes: No cervical lymphadenopathy. Thyroid: Unremarkable. Vasculature: Carotid arteries and internal jugular veins are unremarkable. Orbits: Unremarkable at visualized levels. Paranasal sinuses and mastoids: Grossly clear at visualized levels. Lung apices: Clear. Upper mediastinum: 2 Bones: Multilevel degenerative changes of the spine. Other: CT/Soft Tissue Neck WITH Contrast IMPRESSION: No acute abnormality is seen. Reading Location: [id number]
== END | disposition home or self-care (01) ==
LOC: CT 16:45
PROVIDERS: PCP Family Medicine; Referring Provider Family Medicine; Visit Provider Family Medicine
DX: R68.84 Jaw pain (principal)
CPT/HCPCS: 70491; Q9967

== ENCOUNTER 2025-03-23 09:25 | Outpatient (CLI) | payer MEDICARE, SELFPAY ==
[2025-03-23 11:59] LABS: Hematocrit 39.7 % (37-47); Hemoglobin 12.7 g/dL (12.0-15.0); Immature Granulocytes Count 0.010 X10^3/uL (0.0-0.0); Mean Corp Hgb Conc 32.0 g/dL (32-36); Mean Corpuscular Volume 95.4 fL (81-99); Mean Platelet Vol. 11.1 fl (6.2-12.0); NRBC Flagged by Analyzer 0 % (0-5); Platelet Count 241 K/mm3 (150-450); RBC Distribution Width CV 13.0 % (11.6-14.6); RBC Distribution Width SD 45.3 fl (35.1-43.9); Red Blood Count 4.16 M/mm3 (4.2-5.4); White Blood Count 4.8 K/mm3 (4.4-11.0)
[2025-03-23 12:42] LABS: AST(SGOT) 21 U/L (<=31); Alanine Aminotransfer ALT/SGPT 16 U/L (<=34); Albumin, Serum 4.3 g/dL (3.4-4.8); Alkaline Phosphatase 72 U/L (35-104); Anion Gap 12 (5-15); BUN 13 mg/dL (4-19); BUN/Creat Ratio 18.9 RATIO (10-20); Calcium,Total 9.7 mg/dL (7.6-11.0); Carbon Dioxide 25.2 mmol/L (21.0-32.0); Chloride 103 mmol/L (98-108); Cholesterol 149 mg/dL (<=200); Globulin 2.7 g/dL (2.2-4.2); Glucose 99 mg/dL (70-99); Low Density Lipoprotein Calc. 53 mg/dL; Potassium 4.0 mmol/L (3.3-5.1); Triglycerides 83 mg/dL; Very Low Density Lipoprotein 17 mg/dL (5-40); cholesterol:hdl ratio screen 1.87
[2025-03-23 13:35] LABS: Vitamin D,25 Hydroxy 62.5 ng/mL (30-100)
--- OUTSIDE RECORDS SUMMARY | 2025-03-23 18:00 | XMS RPT_ITS | CCD ---
Author Organization [facility] Care Team Providers Care Administrative Dietitian Name Role Phone Dipak Seth Primary Care [...] Unavaila mariella Vizcarra, Ms. Lucinda Mtz Attending Unava ilable Dorinda, Dr. Dipak Zamorano Primary Care Unavaila ble Dorinda, Dr. Dipak Zamorano Attending Unavaila ble Fuentes, Dr. Sammie Hernandez Attending Unava ilable Dorinda, Dr. Dipak Zamorano Primary Care Unavaila LOTTIE York Attending Unavail able TRANG CARR Primary Care Unavailable Trang Carr MD Primary Care Provider [phone] Trang Carr MD Primary Care Provider Trang Carr MD Primary Care Provider Fernyorrow ZIPPER SEWING MACHINE OPERATOR-CAroldo Attending Provider Fernyorrow ZIPPER SEWING MACHINE OPERATOR-CAroldo Referring Provider DARBY VELASCO Admitting Unavailable TRANG CARR Primary Care Unavailable ISABELLA DIXON Attending Unavailable TRANG CARR Primary Care Unavailable ROYER VICTORIA Attending Unavailable JERE COLON Admitting Unavailelizabeth e TRANG CARR Primary Care Unavailable JASON VIDALES Attending Unavailabl e [facility] Consulting MOLLY Brown Attending Unavailabl e COOPERRIDER, MOLLY Padilla Referring Unavailabl e LILLY, CHALON Primary Care Unavailable ITZELRIDMOLLY ARCOS Attending Unavailabl e SELF Referring Unavailable LILLY, CHALON Primary Care Unavailable ITZELRIDMOLLY ARCOS Attending Unavailabl e COOPERRIDER, MOLLY T Referring Unavailabl e LILLY, CHALON Primary Care Unavailable Savanna MASON, Dr. Ambriz Attending Provider Savanna MASON, Dr. Ambriz Referring Provider Lilly MASON, Trang Attending Provider Lilly MASON, Trang Referring Provider [phone] Lilly, Chalon Primary Care Unavailable Lilly, Chalon Referring Unavailable Lilly, Chalon Attending Unavailable Lilly, Chalon Primary Care Unavailable Lilly, Chalon Referring Unavailable Lilly, Chalon Attending Unavailable Lilly, Chalon Primary Care Unavailable Lilly, Chalon Referring Unavailable Lilly, Antonioon Attending Unavailable Lilly, Chalon Primary Care Unavailable Pb Corrales Referring Unavailabl e Wartmann, Pb Attending Unavailabl e Lilly, Chalon Primary Care Unavailable McMorrow, Aroldo Referring Unavailable McMorrow, Aroldo Attending Unavailable Lilly, Chalon Primary Care Unavailable PittakKimber Attending Unavailable Lilly, Chalon Referring Unavailable WonDaniel Attending Unavailable Lilly, Chalon Primary Care Unavailable Lilly, Chalon Referring Unavailable Won, Daniel Attending Unavailable Lilly, Chalon Primary Care Unavailable Lilly, Chalon Attending Unavailable Lilly, Chalon Primary Care Unavailable Lilly, Chalon Attending Unavailable Lilly, Chalon Primary Care Unavailable Lilly, Chalon Referring Unavailable Lilly, Chalon Attending Unavailable Lilly, Chalon Primary Care Unavailable Lilly, Chalon Referring Unavailable Lilly, Chalon Attending Unavailable Lilly, Chalon Primary Care Unavailable Allergies Allergy Classification Reported Allergen(s) Allergy Type Date of Onset Reaction(s) Facility (2 sources) Ibandronate Drug Allergy Other [facility] (20 sources) Ibandronate; Translations: [IBANDRONATE] Drug Allergy 5 Other: See Comments, Anaphylaxis [facility] Comment on above: no appetite nauseous (1 source) Ibadronate Drug Allergy 4 [facility] Repository Medications Current Medications Medication Drug [...] sources) alpha-Adrenergic Agonist, Histamine-1 Receptor Antagonist Start: 5 End: 5 take 1 tablet by mouth twice [...] 1 ml denosumab 60 mg/ml prefilled syringe (20 sources) RANK Ligand Inhibitor Start: 04-23-2024 Denosumab [...] 16 g 11/28/2024 11/28/2025 Active lactobac cmb #8-[id number]-[id number] 300-250 million cell-mg cap (4 sources) lactobac cmb #1-gnq-tyhpmjwysy 300-250 million cell-mg cap Take by mouth. [...] pantoprazole 40 mg delayed release oral tablet (20 sources) Proton Pump Inhibitor Start: 4 End: take 1 tablet by mouth once daily Pantoprazole 40 mg tablet,delayed release (DR/EC) Active 40 mg PO DAILY April 23, 2024 12:00am pantoprazole DR (PROTONIX) 20 mg tablet Take 20 mg by mouth. Active rosuvastatin calcium 10 mg oral tablet (20 sources) HMG-CoA Reductase Inhibitor Start: 07-31-2024 End: [...] 40 or continued symptomatic bradycardia, Starting on 07/31/24 at 0740, For 3 doses, Intra-Procedure, Administer [...] 05-06-2018 05-06-2018 Chronic Chronic ulcer of skin (8 sources) Non-pressure chronic ulcer of other part of left foot with fat layer exposed; Translations: [Skin ulcer of left foot with fat layer exposed] Onset: 07-17-2024 05-07-2024 Chronic Disorders of teeth and jaw (1 source) Jaw pain; Translations: [Jaw pain] Onset: 03-19-2025 Episodic Fluid and electrolyte disorders (1 source) [...] Onset: 04-21-2024 Chronic Open wounds of extremities (7 sources) Puncture wound of sole of foot; Translations: [Puncture wound without foreign body, left foot, initial encounter] 04-23-2024 Episodic Other connective tissue disease (1 source) Impingement syndrome of shoulder region; Translations: [Impingement syndrome, shoulder, right] Episodic Other connective tissue disease (7 sources) Foot pain; Translations: [Pain in left [...] Translations: [Chronic sinusitis, unspecified] Onset: 11-30-2024 Chronic Unclassified (2 sources) COLD SYMPTOMS 10-28-2021 Comment [...] in right foot] Onset: 01-24-2022 Episodic Other upper respiratory infections (12 sources) Acute [...] Test Name Value Interpretation Reference Range Facility Soft Tissue Neck WITH Contra ston 03-10-2025 Soft Tissue Neck WITH Contrast [facility] Imaging Services [address] [place] [address] Soft Tissue Neck WITH Contrast MR#: [id number] Acct: [id number] Name: CHINMAY GRIMALDO Rep #: [id number] : 1950 F 74 From: Nixon gonsalves MD PCP: Dr. Trang Carr MD Status: [facility] Study: Soft Tissue Neck WITH Contrast Date of Exam: 0 03/10/25 Exam# [id number] Ordering Dr: Trang Carr MD PROCEDURE: SOFT TISSUE NECK WITH CONTRAST 03/10/2025 REASON FOR EXAM: PAIN IN JAW THAT RADIATES TO EARS, NECK, AND EYES TECHNIQUE: SOFT TISSUE NECK WITH CONTRAST CONTRAST: Isovue 370 VOLUME: 75 mL One or more dose reduction techniques were used (e.g., Automated exposure control, adjustment of the mA and/or kV according to patient size, use of iterative reconstruction technique). RADIATION DOSE SUMMARY: CTDlvol: 11.25 mGy DLP: 337.2 mGycm COMPARISON: Prior MRI of the neck dated February 11, 2025. FINDINGS: Airway: Midline and patent. Salivary glands: Unremarkable. Lymph nodes: No cervical lymphadenopathy. Thyroid: Unremarkable. Vasculature: Carotid arteries and internal jugular veins are unremarkable. Orbits: Unremarkable at visualized levels. Paranasal sinuses and mastoids: Grossly clear at visualized levels. Lung apices: Clear. Upper mediastinum: 2 Bones: Multilevel degenerative changes of the spine. Other: CT/Soft Tissue Neck WITH Contrast IMPRESSION: No acute abnormality is seen. Reading Location: [facility] CC: Dr. Trang Carr MD; Dr. Pb Corrales MD Ag Service Manager: Signed Normal [facility] Magnetic resonance imaging r eportOrdered By: Carrillo Crowe on 02-11-2025 Study report [facility] Imaging Services [address] [place] [address] Orbit Face Neck W/WO Contrast MR#: [id number] Acct: [id number] Name: CHINMAY GRIMALDO Rep #: [id number] : 1950 F 74 From: Cyrus Crowe MD PCP: Dr. Trang Carr MD Status: REG CL I Study:Orbit Face Neck W/WO Contrast Date of E xam: 02/10/25 Exam# [id number] Ordering Dr: Jeannine Carr MD EXAM: MRI of the neck without and with contrast CLINICAL HISTORY: Jaw pain COMPARISON: Noncontrast sinus CT 11/28/2024 TECHNIQUE: MRI of the neck performed without and with 12 cc of Clariscan FINDINGS: Symmetric appearance of the orbits. No sinonasal air-fluid levels. Normal nasopharynx. On T1 weighted images there is normal marrow signal within the mandible without edema. On coronal T1 weighted images, the floor of mouth appears intact. Normal parotid glands. Normal oral cavity. Normal submandibular glands. Symmetric vocal folds. Visualized portions thoracic inlet unremarkable. No soft tissue edema. No abscess. No enlarged cervical lymph nodes. Symmetric vocal folds are noted. The inversion recovery images demonstrate the same findings as the fat saturated T2 weighted images. On postcontrast axial and coronal images, no abnormal mucosal enhancement. No abnormal maxillary or mandibular enhancement. MRI/Orbit Face Neck W/WO Contrast IMPRESSION: MRI of the neck without and with contrast is within normal limits. If there is concern related to dentition, CT would be the study of choice Reading Location: [facility] CC: Dr. Trang Carr MD ~ Ag Service Manager: Signed [facility] Orbit Face Neck W/WO Contras ton 02-10-2025 Orbit Face Neck W/WO Contrast [facility] Imaging Services [address] [place] [id number] Orbit Face Neck W/WO Contrast MR#: [id number] Acct: [id number] Name: CHINMAY GRIMALDO Rep #: [id number] : 1950 F 74 From: Carrillo Crowe MD PCP: Dr. Trang Carr MD Status: REG CLI Study: Orbit Face Neck W/WO Contrast Date of Exam: Exam# [id number] Ordering Dr: Trang Carr MD EXAM: MRI of the neck without and with contrast CLINICAL HISTORY: Jaw pain COMPARISON: Noncontrast sinus CT 11/28/2024 TECHNIQUE: MRI of the neck performed without and with 12 cc of Clariscan FINDINGS: Symmetric appearance of the orbits. No sinonasal air-fluid levels. Normal nasopharynx. On T1 weighted images there is normal marrow signal within the mandible without edema. On coronal T1 weighted images, the floor of mouth appears intact. Normal parotid glands. Normal oral cavity. Normal submandibular glands. Symmetric vocal folds. Visualized portions thoracic inlet unremarkable. No soft tissue edema. No abscess. No enlarged cervical lymph nodes. Symmetric vocal folds are noted. The inversion recovery images demonstrate the same findings as the fat saturated T2 weighted images. On postcontrast axial and coronal images, no abnormal mucosal enhancement. No abnormal maxillary or mandibular enhancement. MRI/Orbit Face Neck W/WO Contrast IMPRESSION: MRI of the neck without and with contrast is within normal limits. If there is concern related to dentition, CT would be the study of choice Reading Location[facility] CC: Dr. Trang Carr MD Ag Service Manager: Signed Normal [facility] ANTINUCLEAR ANTIBODIES DIREC Ton 01-22-2025 JUJU,DIRECT Negative Normal Negative [facility] Comment on above: Result Comment: Perf ormed at: - [facility] [id number] Receiving Manager: Sergio Tovar PhD, Phone: [phone] Performed at: - [facility] [id number] Receiving Manager: Amaya Ingram MD, Phone: [phone] Performed By: #### L 3410.0800, L3100.9100, L505.7010, L4500.0100, L3100.5475 #### [facility] [address] [place], [place], [id number] Anti-Histone Abson ANTI-HISTONE AB 2.6 Units High 0.0-0.9 [facility] Comment on above: Result Comment: Nega tive <1.0 Weak Positive 1.0 - 1.5 Moderate Positive 1.6 - 2.5 Strong Positive >2.5 Performed By: #### L 3410.0800, L3100.9100, L505.7010, L4500.0100, L3100.5475 #### [facility] [address] [place], [place], [id number] Lupus Anticoagulant Compon 0 01-22-2025 aPTT Coag (Bld) [Time] 37.6 s Normal 0.0-43.5 [facility] Comment on above: Performed By: #### L 3410.0800, L3100.9100, L505.7010, L4500.0100, L3100.5475 #### [facility] [address] [place], [address] DILUTE PT (dPT) 42.6 sec Normal 0.0-47.6 [facility] Comment on above: Performed By: #### L 3410.0800, L3100.9100, L505.7010, L4500.0100, L3100.5475 #### [facility] [address] [place], [address] dPT Conf. Ratio 1.13 Ratio Normal 0.00-1.34 [facility] Comment on above: Performed By: #### L 3410.0800, L3100.9100, L505.7010, L4500.0100, L3100.5475 #### [facility] [address] [place], [place], [address] DRVVT 40.8 sec Normal 0.0-47.0 [facility] Comment on above: Performed By: #### L 3410.0800, L3100.9100, L505.7010, L4500.0100, L3100.5475 #### [facility] [address] [place], [address] Interpretation Comment: Normal . [facility] Comment on above: Result Comment: No l upus anticoagulant was detected. Performed at: [address] [id number] Receiving Manager: Amaya Ingram MD, Phone: [phone] Performed By: #### L 3410.0800, L3100.9100, L505.7010, L4500.0100, L3100.5475 #### [facility] [address] [place], [address] THROMBIN TIME 19.1 sec Normal 0.0-23.0 [facility] Comment on above: Performed By: #### L 3410.0800, L3100.9100, L505.7010, L4500.0100, L3100.5475 #### [facility] [address] [place], [place], [address] Sjogren's Antibodies A/Bon 0 01-22-2025 ANTI-SS-A < 0.2 Normal 0.0-0.9 [facility] Comment on above: Performed By: #### L 3410.0800, L3100.9100, L505.7010, L4500.0100, L3100.5475 #### [facility] [address] [place], [address] ANTI-SS-B < 0.2 Normal 0.0-0.9 [facility] Comment on above: Performed By: #### L 3410.0800, L3100.9100, L505.7010, L4500.0100, L3100.5475 #### [facility] [address] [place], [place], [address] Dilute Oscar's viper venom timeOrdered By: Trang Carr on 01-19-2025 dRVVT Coag (PPP) [Time] 40.8 s 0.0-47.0 [facility] Rheumatoid Factoron 01-20-20 RHEUMATOID FAC < 10.0 Normal <15 [facility] Comment on above: Performed By: #### L 3410.0800, L3100.9100, L505.7010, L4500.0100, L3100.5475 #### [facility] [address] [place], [place], [address] Serum histone antibody assay (units/volume)Ordered By: Trang Carr on 01-19-2025 Histone Ab Qn (S) 2.6 Units High 0.0-0.9 [facility] Comment on above: Negative <1.0 Weak P ositive 1.0 - 1.5 Moderate Positive 1.6 - 2.5 Strong Positive >2.5 Serum rheumatoid factor dete ctionOrdered By: Trang Carr on 01-19-2025 Rheumatoid factor Ql (S) < 10.0 IU/mL <15 [facility] Thrombin timeOrdered By: Jeannine Carr on 01-19-2025 Thrombin time Coag (PPP) [Time] 19.1 sec 0.0-23.0 [facility] EBV Acute Prof IgG / IgMon 0 01-18-2025 EB Ab VCA, IgG 233.0 U/mL High 0.0-17.9 [facility] Comment on above: Order Comment: PLEAS E USE EXTRA BLOOD DRAWN 01/13/25 FOR ADD ON TESTING Result Comment: Nega tive <18.0 Equivocal 18.0 - 21.9 Positive >21.9 Performed By: #### M 100.2200 #### [facility] [address] [place], [address] EBV Ab VCA, IgM < 36.0 Normal 0.0-35.9 [facility] Comment on above: Order Comment: PLEAS E USE EXTRA BLOOD DRAWN 01/13/25 FOR ADD ON TESTING Result Comment: Nega tive <36.0 Equivocal 36.0 - 43.9 Positive >43.9 Performed By: #### M 100.2200 #### [facility] [address] [place], [address] EBV NuAg Ab,IgG < 18.0 Normal 0.0-17.9 [facility] Comment on above: Order Comment: PLEAS E USE EXTRA BLOOD DRAWN 01/13/25 FOR ADD ON TESTING Result Comment: Nega tive <18.0 Equivocal 18.0 - 21.9 Positive >21.9 Performed By: #### M 100.2200 #### [facility] [address] [place], [address] INTERPRETATION Comment Normal . [facility] Comment on above: Order Comment: PLEAS E USE EXTRA BLOOD DRAWN 01/13/25 FOR ADD ON TESTING Result Comment: EBV Interpretation Chart Fabian: Antibody [...] never develop antibodies to EBNA. Performed at: [address] [id number] Receiving Manager: Sergio Tovar PhD, Phone: [phone] Performed By: #### M 100.2200 #### [facility] [address] [place], [address] Immunofixation, Serumon - MI RESULT,S Comment Normal . [facility] Comment on above: Order Comment: PLEAS E USE EXTRA BLOOD DRAWN 01/13/25 FOR ADD ON TESTING Result Comment: No m onoclonality detected. Performed By: #### M 100.2200 #### [facility] [address] [place], [address] IMMUNOGLOB A QN 173 mg/dL Normal 64-422 [facility] Comment on above: Order Comment: PLEAS E USE EXTRA BLOOD DRAWN 01/13/25 FOR ADD ON TESTING Performed By: #### M 100.2200 #### [facility] [address] [place], [address] IMMUNOGLOB G QN 811 mg/dL Normal 586-1602 [facility] Comment on above: Order Comment: PLEAS E USE EXTRA BLOOD DRAWN 01/13/25 FOR ADD ON TESTING Performed By: #### M 100.2200 #### [facility] [address] [place], [address] IMMUNOGLOB M QN 140 mg/dL Normal 26-217 [facility] Comment on above: Order Comment: PLEAS E USE EXTRA BLOOD DRAWN 01/13/25 FOR ADD ON TESTING Performed By: #### M 100.2200 #### [facility] [address] [place], [address] Lyme Screen W/Reflex WBon LYME SCREEN Ab Negative Normal Negative [facility] Comment on above: Result Comment: Lyme [...] to 14 days is recommended. Performed at: [address] [id number] Receiving Manager: Sergio Tovar PhD, Phone: [phone] Performed By: #### L 1275.5306 #### [facility] [address] [place], [place], [address] CRPon 01-14-2025 C-REACTIVE PROT < 3.00 Normal 0.0-3.0 [facility] Comment on above: Order Comment: SHERRI USE EXTRA BLOOD DRAWN 01/13/25 FOR ADD ON TESTING Performed By: #### M 100.2200 #### [facility] [address] [facility]. [place], [place], [id number] Erythrocyte Sed Rateon 01-14 SED RATE 6 mm/hr Normal 0-30 [facility] Comment on above: Order Comment: SHERRI E USE EXTRA BLOOD DRAWN 01/13/25 FOR ADD ON TESTING Performed By: #### M 100.2200 #### [facility] [address] [facility]. [place], [place], [address] Breast imaging reportOrdered By: Vandana Osborn on 01-13-2025 Study report [facility] Imaging Services [address] [place], [place] [address] SCRN MAMM (CAD)W/ELSIE BILAT MR#: [id number] Acct: [id number] Name: CHINMAY GRIMALDO Rep #: [id number] : 1950 F 74 From: Mi Osborn MD PCP: Dr. Trang Carr MD Status: REG CL I Study:SCRN MAMM (CAD)W/ELSIE BILAT Date of Exa m: 01/13/25 Exam# [id number] Ordering Dr: Jeannine Carr MD EXAM: SCRN [...] be mailed to the patient. Reading Location: [facility] CC: Dr. Trang Carr MD ~ Ag Service Manager: Signed [facility] Erythrocyte sedimentation ra teOrdered By: Trang Carr on 01-13-2025 ESR (Bld) [Velocity] 6 mm/h 0-30 [facility] SCRN MAMM (CAD)W/ELSIE BILATo n 01-13-2025 SCRN MAMM (CAD)W/ELSIE BILAT [facility] Imaging Services [address] [place] [address] SCRN MAMM (CAD)W/ELSIE BILAT MR#: [id number] Acct: [id number] Name: CHINMAY GRIMALDO Rep #: [id number] : 1950 F 74 From: Vandana Osborn MD PCP: Dr. Trang Carr MD Status: REG CL Study: SCRN MAMM (CAD)W/ELSIE BILAT Date of Exam: 12/04 Exam# [id number] Ordering Dr: Trang Carr MD EXAM: SCRN [...] be mailed to the patient. Reading Location: [facility] CC: Dr. Trang Carr MD Ag Service Manager: Signed Normal [facility] Serum Aquilino Welch virus cap desiree IgM antibody assay (units/volume)Ordered By: Trang Carr on 01-13-2025 EBV capsid IgM Qn (S) [arb'U]/mL 0.0-35.9 [facility] Comment on above: Negative <36.0 Equiv ocal 36.0 - 43.9 Positive >43.9 Serum Aquilino Welch virus nuc lear IgG antibody assay (units/volume)Ordered By: Trang Carr on 01-13-2025 EBV nuclear IgG Qn (S) < 18.0 U/mL 0.0-17.9 [facility] Comment on above: Negative <18.0 Equiv ocal 18.0 - 21.9 Positive >21.9 Serum or plasma C reactive p rotein measurement (mass/volume)Ordered By: Trang Carr on 01-13-2025 CRP [Mass/Vol] mg/L 0.0-3.0 [facility] Serum or plasma IgA measurem ent (mass/volume)Ordered By: Trang Carr on 01-13-2025 IgA [Mass/Vol] 173 mg/dL 64-422 [facility] Serum or plasma IgG measurem ent (mass/volume)Ordered By: Trang Carr on 01-13-2025 IgG [Mass/Vol] 811 mg/dL 586-1602 [facility] Culture, Throaton 12-06-2024 CUT Normal throat jeanine isolated. No beta-hemolytic streptococcus isolated. Normal [facility] Comment on above: Performed By: #### M 100.1000 #### [facility] [address] [place], [address] Throat specimen bacteria edith ntification by cultureOrdered By: Pb Corrales on 12-04-2024 Bacteria identified Cx Nom (Throat) streptococcus isolated. [facility] CBC WITH AUTO DIFFERENTIALon 11-28-2024 AUTO NRBC 0.0 % [facility] Comment on above: Performed By: #### L [id number] #### LAB [address] [address] Олег Wheeler M.D. [id number] AUTO NRBC ABS COUNT 0.00 K/mcL Normal 0.00-0.00 [facility] Comment on above: Performed By: #### L [id number] #### LAB [address] [address] Олге Wheeler M.D. [id number] BASOPHILS ABSOLUTE COUNT 0.03 K/mcL Normal 0.00-0.30 [facility] Comment on above: Performed By: #### L [id number] #### LAB [address] [address] Олег Wheeler M.D. [id number] Basophils/100 WBC (Bld) 0.6 % Normal [facility] Comment on above: Performed By: #### L [id number] #### LAB [address] [address] Олег Wheeler M.D. [id number] Eosinophils (Bld) [#/Vol] 0.09 10*3/uL Normal 0.00-0.50 [facility] Comment on above: Performed By: #### L [id number] #### LAB [address] [address] Олег Wheeler M.D. [id number] Eosinophils/100 WBC (Bld) 1.7 % Normal [facility] Comment on above: Performed By: #### L [id number] #### LAB [address] [address] Олег Wheeler M.D. [id number] Erythrocyte distribution width (RBC) [Ratio] 13.2 % Normal 11.6-14.8 [facility] Comment on above: Performed By: #### L [id number] #### LAB [address] [address] Олег Wheeler M.D. [id number] Hematocrit (Bld) [Volume fraction] 42.6 % Normal 36.0-46.0 [facility] Comment on above: Performed By: #### L [id number] #### LAB [address] [address] Олег Wheeler M.D. [id number] Hemoglobin (Bld) [Mass/Vol] 13.6 g/dL Normal 12.0-16.0 [facility] Comment on above: Performed By: #### L [id number] #### LAB [address] [place] [address] Олег Wheeler M.D. [id number] IG ABSOLUTE 0.02 K/mcL Normal 0.00-0.30 [facility] Comment on above: Performed By: #### L [id number] #### LAB [address] [address] Олег Wheeler M.D. [id number] IG PERCENT 0.40 % Normal [facility] Comment on above: Result Comment: The IG parameter is the percentage of metamyelocytes, myelocytes and promyelocytes. An immature granulocyte count (IG) of 1% or more suggests the possibility of infection, an IG count of 3% is very likely related to an infection. Performed By: #### L [id number] #### LAB [address] [place] [address] Олег Wheeler M.D. [id number] Lymphocytes (Bld) [#/Vol] 1.54 10*3/uL Normal 0.90-4.00 [facility] Comment on above: Performed By: #### L [id number] #### LAB [address] [address] Олег Wheeler M.D. [id number] Lymphocytes/100 WBC (Bld) 29.5 % Normal [facility] Comment on above: Performed By: #### L [id number] #### LAB [address] [address] Олег Wheeler M.D. [id number] MCH (RBC) [Entitic mass] 29.9 pg Normal 26.0-34.0 [facility] Comment on above: Performed By: #### L [id number] #### LAB [address] [address] Олег Wheeler M.D. [id number] MCV (RBC) [Entitic vol] 93.6 fL Normal 80.0-100.0 [facility] Comment on above: Performed By: #### L [id number] #### LAB [address] [place] [address] Олег Wheeler M.D. [id number] MEAN CORPUSCULAR HEMOGLOBIN CONC 31.9 g/dL Normal 31.0-37.0 [facility] Comment on above: Performed By: #### L [id number] #### LAB [address] [place] [address] Олег Wheeler M.D. [id number] Monocytes (Bld) [#/Vol] 0.41 10*3/uL Normal 0.30-0.90 [facility] Comment on above: Performed By: #### L [id number] #### LAB [address] [place] [address] Олег Wheeler M.D. [id number] Monocytes/100 WBC (Bld) 7.9 % Normal [facility] Comment on above: Performed By: #### L [id number] #### LAB [address] [place] [address] Олег Wheeler M.D. [id number] NEUTROPHILS ABSOLUTE COUNT 3.13 K/mcL Normal 1.70-7.00 [facility] Comment on above: Performed By: #### L [id number] #### LAB [address] [address] Олег Wheeler M.D. [id number] Neutrophils/100 WBC (Bld) 59.9 % Normal [facility] Comment on above: Performed By: #### L [id number] #### MH LAB [address] [address] Олег Wheeler M.D. [id number] Platelet mean volume (Bld) [Entitic vol] 10.2 fL Normal 9.4-12.4 [facility] Comment on above: Performed By: #### L [id number] #### [facility] LAB [address] [address] Олег Wheeler M.D. [id number] Platelets (Bld) [#/Vol] 241 10*3/uL Normal 150-400 [facility] Comment on above: Performed By: #### L [id number] #### MH LAB [address] [address] Олег Wheeler M.D. [id number] RBC (Bld) [#/Vol] 4.55 10*6/uL Normal 4.00-5.20 [facility] Comment on above: Performed By: #### L [id number] #### MH LAB [address] [address] Олег Wheeler M.D. [id number] WBC (Bld) [#/Vol] 5.22 10*3/uL Normal 4.50-11.00 [facility] Comment on above: Performed By: #### L [id number] #### [facility] LAB [address] [address] Олге Wheeler M.D. [id number] COMPREHENSIVE METABOLIC PANE Thaddeus 11-28-2024 Albumin [Mass/Vol] 4.4 g/dL Normal 3.2-5.[address] [facility] Comment on above: Order Comment: [facility] has implemented the eGFR calculation approach that does not have a coefficient for race that conforms to the NKF-ASN Task Force Recommendations. Performed By: #### 4 6126 #### LAB [address] [address] Олег Wheeler M.D. [id number] ALP [Catalytic activity/Vol] 70 U/L Normal 40-150 [facility] Comment on above: Order Comment: [facility] has implemented the eGFR calculation approach that does not have a coefficient for race that conforms to the NKF-ASN Task Force Recommendations. Performed By: #### 4 [id number] #### LAB [address] [address] Олег Wheeler M.D. [id number] ALT [Catalytic activity/Vol] 16 U/L Normal 0-35 U/L [facility] Comment on above: Order Comment: [facility] has implemented the eGFR calculation approach that does not have a coefficient for race that conforms to the NKF-ASN Task Force Recommendations. Performed By: #### 4 [id number] #### LAB [address] [address] Олег Wheeler M.D. [id number] Anion gap [Moles/Vol] 16 mmol/L Normal 10-20 [facility] Comment on above: Order Comment: [facility] has implemented the eGFR calculation approach that does not have a coefficient for race that conforms to the NKF-ASN Task Force Recommendations. Performed By: #### 4 [id number] #### LAB [address] [address] Олег Wheeler M.D. [id number] AST [Catalytic activity/Vol] 19 U/L Normal 0-35 U/L [facility] Comment on above: Order Comment: [facility] has implemented the eGFR calculation approach that does not have a coefficient for race that conforms to the NKF-ASN Task Force Recommendations. Performed By: #### 4 6126 #### LAB [address] [address] Олег Wheeler M.D. [id number] Bilirubin [Mass/Vol] 0.3 mg/dL Normal 0.0-1.3 [facility] Comment on above: Order Comment: [facility] has implemented the eGFR calculation approach that does not have a coefficient for race that conforms to the NKF-ASN Task Force Recommendations. Performed By: #### 4 6126 #### LAB [address] [place], [place] [address] Олег Wheeler M.D. [id number] Calcium [Mass/Vol] 9.9 mg/dL Normal 8.4-10.[address] [facility] Comment on above: Order Comment: [facility] has implemented the eGFR calculation approach that does not have a coefficient for race that conforms to the NKF-ASN Task Force Recommendations. Performed By: #### 4 6126 #### LAB [address] [id number] Олег Wheeler M.D. [id number] Chloride [Moles/Vol] 103 mmol/L Normal 98-108 [facility] Comment on above: Order Comment: [facility] has implemented the eGFR calculation approach that does not have a coefficient for race that conforms to the NKF-ASN Task Force Recommendations. Performed By: #### 4 6126 #### LAB [address] [id number] Олег Wheeler M.D. [id number] Creatinine [Mass/Vol] 0.77 mg/dL Normal 0.60-1.10 [facility] Comment on above: Order Comment: [facility] has implemented the eGFR calculation approach that does not have a coefficient for race that conforms to the NKF-ASN Task Force Recommendations. Performed By: #### 4 6126 #### LAB [address] [place], [place] [address] Олег Wheeler M.D. [id number] EGFR 82 mL/min/1.73 m2 Normal >=60 [facility] Comment on above: Order Comment: [facility] has implemented the eGFR calculation approach that does not have a coefficient for race that conforms to the NKF-ASN Task Force Recommendations. Result Comment: Jyothi mated GFR was calculated using the 2020 CKD-EPI creatinine equation. Performed By: #### 4 6126 #### LAB [address] [address] Олег Wheeler M.D. [id number] Glucose [Mass/Vol] 114 mg/dL High 65-[address] [facility] Comment on above: Order Comment: [facility] has implemented the eGFR calculation approach that does not have a coefficient for race that conforms to the NKF-ASN Task Force Recommendations. Performed By: #### 4 6126 #### LAB [address] [address] Олег Wheeler M.D. [id number] HCO3 (Bld) [Moles/Vol] 26 mmol/L Normal 21-32 [facility] Comment on above: Order Comment: [facility] has implemented the eGFR calculation approach that does not have a coefficient for race that conforms to the NKF-ASN Task Force Recommendations. Performed By: #### 4 6126 #### LAB [address] [address] Олег Wheeler M.D. [id number] Potassium [Moles/Vol] 3.9 mmol/L Normal 3.5-5.1 [facility] Comment on above: Order Comment: [facility] has implemented the eGFR calculation approach that does not have a coefficient for race that conforms to the NKF-ASN Task Force Recommendations. Performed By: #### 4 6126 ####[facility] LAB [address] [address] Олег Wheeler M.D. [id number] Protein [Mass/Vol] 6.6 g/dL Normal 6.0-8.[address] [facility] Comment on above: Order Comment: [facility] has implemented the eGFR calculation approach that does not have a coefficient for race that conforms to the NKF-ASN Task Force Recommendations. Performed By: #### 4 6126 ####[facility] LAB [address] [address] Олег Wheeler M.D. [id number] Sodium [Moles/Vol] 141 mmol/L Normal 135-[address] [facility] Comment on above: Order Comment: [facility] has implemented the eGFR calculation approach that does not have a coefficient for race that conforms to the NKF-ASN Task Force Recommendations. Performed By: #### 4 6126 #### LAB [address] [place], [place] [address] Олег Wheeler M.D. [id number] Urea nitrogen [Mass/Vol] 11 mg/dL Normal 8-25 [facility] Comment on above: Order Comment: [facility] has implemented the eGFR calculation approach that does not have a coefficient for race that conforms to the NKF-ASN Task Force Recommendations. Performed By: #### 4 6126 #### LAB [address] [address] Олег Wheeler M.D. [id number] Urea nitrogen/Creatinine [Mass ratio] 14.3 mg/mg Normal 10.0-20.0 [facility] Comment on above: Order Comment: [facility] has implemented the eGFR calculation approach that does not have a coefficient for race that conforms to the NKF-ASN Task Force Recommendations. Performed By: #### 4 6126 #### LAB [address] [id number] Олег Wheeler M.D. [id number] COVID-19/INFLUENZA A,B MOLEC ULARon 11-28-2024 SARS-CoV-2 (COVID-19) Ab IA Ql SARS-COV-2 (AMY) Not Detected INFLUENZA A (AMY) Not Detected INFLUENZA B (AMY) Not Detected Normal Not Detected [facility] Comment on above: Performed By: #### L [id number] #### LAB [address] [id number] Олег Wheeler M.D. [id number] CT SINUSon 11-28-2024 CT SINUS EXAMINATION: CT [...] Nov 28, 2024 10:07:52 AM EDT Normal [facility] Comment on above: Order Comment: Injur y/Trauma or Illness?:Illness/Other How long have you had these symptoms (acute/chronic)?:Chronic Reason for exam?:sinus pain and pressure in face and neck, pt states swollen glands in neck, per patient cannot get into ent for another 3 weeks Type of Exam?:Initial Additional signs and symptoms?:strep and mono negative ED Prov Noteon 11-28-2024 ED Prov Note ED PROVIDER NOTE [facility] EM[facility]ENCY [facility] NAME: Chinmay Grimaldo AGE: 73 y.o. : 1950 VISIT DATE: 11/28/2024 CSN: [id number] PCP: Trang Carr MD Chief Complaint Patient [...] MCH 29. (more content not included)... Normal [facility] TSH WITH REFLEX FREE T4on TSH Qn 1.32 m[IU]/L Normal 0.27-4.20 [facility] Comment on above: Performed By: #### 4 6612 ####[facility] LAB [address] [place], [place] [address] Олег Wheeler M.D. [id number] Heterophile Ab Ql (S)Ordered By: Aroldo Cespedes on 11-24-2024 Monoscreen Negative Negative [facility] [place] 11-24-2024 Monocytes (Bld) [#/Vol] Negative Normal Negative [facility] Comment on above: Order Comment: Order Date: 11/24/24 Order Info: [id number] - MONO Comments: tests for mono Performed By: #### L 700.5500 #### [facility] [address] [facility] [place], [address] Serum heterophile antibody d etectionOrdered By: Aroldo Cespedes on 11-24-2024 Heterophile Ab Ql (S) Negative Negative [facility] CCTA Heart (Production Worker bill acosta)on 07-31-2024 1. Total calcium score [...] Modifiers: No modifiers are present Exceptions: None [facility] Coronary Computed Angiography Report Patient Name: Chinmay Grimaldo Age: 73 y.o. Requesting Physician: Darian Velasco CNP Interpreting Production Worker: Tara Ash MD Primary Care Physician: Trang [...] Image Quality: Good, No significant artifacts. Scanner: [employer] DLP 123.07 mGy 72 cc Isovue-370. 0.4mg [...] SEPARATE RADIOLOGY REPORT FOR THE NONCARDIAC FINDINGS [facility] Radiology Study observation (narrative) [facility] CCTA Heart (Production Worker bill acosta)Ordered By: Tara Ash on 07-31-2024 [facility] Work Phone: CT CCTA HEART (FILE KEEPER READ)on 07-31-2024 CT CCTA HEART (FILE KEEPER READ) Coronary Computed Angiography Report Patient Name: Chinmay Grimaldo Age: 73 y.o. Requesting Physician: Darian Velasco CNP Interpreting Production Worker: Tara Ash MD Primary Care Physician: Trang [...] Image Quality: Good, No significant artifacts. Scanner: [employer] DLP 123.07 mGy 72 cc Isovue-370. [...] SatJul 31, 2024 11:23:55 AM EST Normal [facility] Comment on above: Order Comment: NPO s [...] score and CTA coronary protocol was utilized. Production Worker will interpret the CT calcium score and [...] for dedicated calcium score and cardiac evaluation. ST/[employer] Workstation ID: [id number] Dictated by: JV TOURE on SatJul 31, 2024 10:51:55 AM EST Transcribed by: RENETTA MACHUCA on SatJul 31, 2024 11:07:52 AM EST Finalized by: JV TOURE on SatJul 31, 2024 10:09:34 PM EST Normal [facility] Comment on above: Order Comment: NPO s tatus not required for this exam however caffeine should be minimized prior to exam. Injury/Trauma or Illness?:Illness/Other How long have you had these symptoms (acute/chronic)?:Acute Reason for exam?:Chest pain, supplemental read Type of Exam?:Subsequent/Follow-up Additional signs and symptoms?:. LIPID PANELon 07-31-2024 Cholesterol [Mass/Vol] 168 mg/dL Normal 100-199 [facility] Comment on above: Performed By: #### 4 6087 #### LAB [address], [place] [address] Олег Wheeler M.D. [id number] Cholesterol in HDL [Mass/Vol] 75 mg/dL Normal 40-59 [facility] Comment on above: Performed By: #### 4 6087 ####[facility] LAB [address] [place], [place] [address] Олег Wheeler M.D. [id number] Cholesterol.total/Chol esterol in HDL [Mass ratio] 2.2 {ratio} Normal [facility] Comment on above: Result Comment: Fema le Cholesterol/HDL Ratio: Average risk: 4.4 1/2 average risk: 3.3 2 x average risk: 7.1 Performed By: #### 4 6087 #### LAB [address] [place], [place] [address] Олег Wheeler M.D. [id number] LDL CHOLESTEROL CALCULATED 80 mg/dL Normal 10-130 [facility] Comment on above: Result Comment: [facility] Cholesterol Education [facility] Guidelines: LDL Cholesterol Optimal: <100 mg/dL Near Optimal/above Optimal: 100-129 mg/dL Borderline High: 130-159 mg/dL High: 160-189 mg/dL Very High: greater than or equal to 190 mg/dL Performed By: #### 4 6087 #### LAB [address] [place], [place] [address] Олег Wheeler M.D. [id number] NON HDL CHOL 93 mg/dL Normal [facility] Comment on above: Result Comment: [facility] Cholesterol Education Program Guidelines: NON HDL Cholesterol Desirable: <130 mg/dL Borderline High: 130-159 mg/dL High: 160-189 mg/dL Very High: > or = 190 mg/dL Performed By: #### 4 6087 #### LAB [address] [place], [place] [address] Олег Wheeler M.D. [id number] Triglyceride [Mass/Vol] 66 mg/dL Normal 30-150 [facility] Comment on above: Performed By: #### 4 6087 #### LAB [address] [place], [place] [address] Оелг Wheeler M.D. [id number] Lipid 1996 panelon 4 Cholesterol [Mass/Vol] 168 mg/dL 100 - 199 mg/dL [facility] Cholesterol in HDL [Mass/Vol] 75 mg/dL 40 - 59 mg/dL [facility] Cholesterol in LDL [Mass/Vol] 80 mg/dL 10 - 130 mg/dL [facility] Comment on above: National Cholesterol Education Program Guidelines: LDL Cholesterol Optimal: <100 mg/dL Near Optimal/above Optimal: 100-129 mg/dL Borderline High: 130-159 mg/dL High: 160-189 mg/dL Very High: greater than or equal to 190 mg/dL Cholesterol non HDL [Mass/Vol] 93 mg/dL [facility] Comment on above: National Cholesterol Education Program Guidelines: NON HDL Cholesterol Desirable: <130 mg/dL Borderline High: 130-159 mg/dL High: 160-189 mg/dL Very High: > or = 190 mg/dL Cholesterol.total/Chol esterol in HDL [Mass ratio] 2.2 {ratio} ratio [facility] Comment on above: Female Cholesterol/H DL Ratio: Average risk: 4.4 1/2 average risk: 3.3 2 x average risk: 7.1 Triglyceride [Mass/Vol] 66 mg/dL 30 - 150 mg/dL [facility] TROPONINon 07-31-2024 TROPONIN T DELTA CHANGE INTERPRETATION No biomarker evidence of cardiac injury. Normal [facility] Comment on above: Performed By: #### 4 6608 #### LAB [address] [place], [place] [address] Олег Wheeler M.D. [id number] TROPONIN T NG/L < Normal <=14 [facility] Comment on above: Performed By: #### 4 6608 #### LAB [address] [address] Олег Wheeler M.D. [id number] Troponinon 07-31-2024 Interp Troponin T Delta Change No biomarker evidence of cardiac injury. [facility] Troponin T ng/L NINF - 14 ng/L [facility] BNP (NT Pro BNP)on Natriuretic peptide.B prohormone N-Terminal [Mass/Vol] 89 pg/mL 0 - 300 pg/mL [facility] CBC Auto Differentialon 07-12 Basophils (Bld) [#/Vol] 0.03 10*3/uL [facility] Basophils/100 WBC (Bld) 0.5 % [facility] Eosinophils (Bld) [#/Vol] 0.02 10*3/uL [facility] Eosinophils/100 WBC (Bld) 0.4 % [facility] Erythrocyte distribution width (RBC) [Entitic vol] 13.3 % 11.6 - 14.8 % [facility] Hematocrit (Bld) [Volume fraction] 39.7 % 36.0 - 46.0 % [facility] Hemoglobin (Bld) [Mass/Vol] 12.7 g/dL 12.0 - 16.0 g/dL [facility] Immature granulocytes (Bld) [#/Vol] 0.03 10*3/uL [facility] Immature granulocytes/100 WBC (Bld) 0.5 % [facility] Comment on above: The IG parameter is the percentage of metamyelocytes, myelocytes and promyelocytes. An immature granulocyte count (IG) of 1% or more suggests the possibility of infection, an IG count of 3% is very likely related to an infection. Lymphocytes (Bld) [#/Vol] 1.07 10*3/uL [facility] Lymphocytes/100 WBC (Bld) 18.9 % [facility] MCH (RBC) [Entitic mass] 29.5 pg 26.0 - 34.0 pg [facility] MCHC (RBC) [Mass/Vol] 32 g/dL 31.0 - 37.0 g/dL [facility] MCV (RBC) [Entitic vol] 92.3 fL 80.0 - 100.0 fL [facility] Monocytes (Bld) [#/Vol] 0.4 10*3/uL [facility] Monocytes/100 WBC (Bld) 7.1 % [facility] Neutrophils (Bld) [#/Vol] 4.11 10*3/uL [facility] Neutrophils/100 WBC (Bld) 72.6 % [facility] Nucleated RBC (Bld) [#/Vol] 0 10*3/uL [facility] Nucleated RBC/100 WBC (Bld) [Ratio] 0 % [facility] Platelet mean volume (Bld) [Entitic vol] 10 fL 9.4 - 12.4 fL [facility] Platelets (Bld) [#/Vol] 224 10*3/uL [facility] RBC (Bld) [#/Vol] 4.3 10*6/uL [facility] [place] alth WBC (Bld) [#/Vol] 5.66 10*3/uL [facility] CBC WITH AUTO DIFFERENTIALon 07-30-2024 AUTO NRBC 0.0 % Normal [facility] Comment on above: Performed By: #### L [id number] ####[facility] LAB [address] [address] Олег Wheeler M.D. [id number] AUTO NRBC ABS COUNT 0.00 K/mcL Normal 0.00-0.00 [facility] Comment on above: Performed By: #### L [id number] #### LAB [address] [address] Олег Wheeler M.D. [id number] BASOPHILS ABSOLUTE COUNT 0.03 K/mcL Normal 0.00-0.30 [facility] Comment on above: Performed By: #### L [id number] #### LAB [address] [address] Олег Wheeler M.D. [id number] Basophils/100 WBC (Bld) 0.5 % Normal [facility] Comment on above: Performed By: #### L [id number] #### LAB [address] [address] Олег Wheeler M.D. [id number] Eosinophils (Bld) [#/Vol] 0.02 10*3/uL Normal 0.00-0.50 [facility] Comment on above: Performed By: #### L [id number] #### LAB [address] [address] Олег Wheeler M.D. [id number] Eosinophils/100 WBC (Bld) 0.4 % Normal [facility] Comment on above: Performed By: #### L [id number] #### LAB [address] [place] [address] Олег Wheeler M.D. [id number] Erythrocyte distribution width (RBC) [Ratio] 13.3 % Normal 11.6-14.8 [facility] Comment on above: Performed By: #### L [id number] #### LAB [address] [place] [address] Олег Wheeler M.D. [id number] Hematocrit (Bld) [Volume fraction] 39.7 % Normal 36.0-46.0 [facility] Comment on above: Performed By: #### L [id number] #### LAB [address] [place] [address] Олег Wheeler M.D. [id number] Hemoglobin (Bld) [Mass/Vol] 12.7 g/dL Normal 12.0-16.0 [facility] Comment on above: Performed By: #### L [id number] #### LAB [address] [address] Олег Wheeler M.D. [id number] IG ABSOLUTE 0.03 K/mcL Normal 0.00-0.30 [facility] Comment on above: Performed By: #### L [id number] #### LAB [address] [address] Олег Wheeler M.D. [id number] IG PERCENT 0.50 % Normal [facility] Comment on above: Result Comment: The IG parameter is the percentage of metamyelocytes, myelocytes and promyelocytes. An immature granulocyte count (IG) of 1% or more suggests the possibility of infection, an IG count of 3% is very likely related to an infection. Performed By: #### L [id number] #### LAB [address] [address] Олег Wheeler M.D. [id number] Lymphocytes (Bld) [#/Vol] 1.07 10*3/uL Normal 0.90-4.00 [facility] Comment on above: Performed By: #### L [id number] #### LAB [address] [address] Олег Wheeler M.D. [id number] Lymphocytes/100 WBC (Bld) 18.9 % Normal [facility] Comment on above: Performed By: #### L [id number] #### LAB [address] [address] Олег Wheeler M.D. [id number] MCH (RBC) [Entitic mass] 29.5 pg Normal 26.0-34.0 [facility] Comment on above: Performed By: #### L [id number] #### LAB [address] [address] Олег Wheeler M.D. [id number] MCV (RBC) [Entitic vol] 92.3 fL Normal 80.0-100.0 [facility] Comment on above: Performed By: #### L [id number] #### LAB [address] [address] Олег Wheeler M.D. [id number] MEAN CORPUSCULAR HEMOGLOBIN CONC 32.0 g/dL Normal 31.0-37.0 [facility] Comment on above: Performed By: #### L [id number] #### LAB [address] [address] Олег Wheeler M.D. [id number] Monocytes (Bld) [#/Vol] 0.40 10*3/uL Normal 0.30-0.90 [facility] Comment on above: Performed By: #### L [id number] #### LAB [address] [address] Олег Wheeler M.D. [id number] Monocytes/100 WBC (Bld) 7.1 % Normal [facility] Comment on above: Performed By: #### L [id number] #### LAB [address] [address] Олег Wheeler M.D. [id number] NEUTROPHILS ABSOLUTE COUNT 4.11 K/mcL Normal 1.70-7.00 [facility] Comment on above: Performed By: #### L [id number] #### LAB [address] [place] [address] Олег Wheeler M.D. [id number] Neutrophils/100 WBC (Bld) 72.6 % Normal [facility] Comment on above: Performed By: #### L [id number] #### LAB [address] [place] [address] Олег Wheeler M.D. [id number] Platelet mean volume (Bld) [Entitic vol] 10.0 fL Normal 9.4-12.4 [facility] Comment on above: Performed By: #### L [id number] #### LAB [address] [place] [address] Олег Wheeler M.D. [id number] Platelets (Bld) [#/Vol] 224 10*3/uL Normal 150-400 [facility] Comment on above: Performed By: #### L [id number] ####[facility] LAB [address] [address] Олег Wheeler M.D. [id number] RBC (Bld) [#/Vol] 4.30 10*6/uL Normal 4.00-5.20 [facility] Comment on above: Performed By: #### L [id number] ####[facility] LAB [address] [address] Олег Wheeler M.D. [id number] WBC (Bld) [#/Vol] 5.66 10*3/uL Normal 4.50-11.00 [facility] Comment on above: Performed By: #### L [id number] ####[facility] [address] [address] Олег Wheeler M.D. [id number] COMPREHENSIVE METABOLIC PANE Thaddeus 07-30-2024 Albumin [Mass/Vol] 4.7 g/dL Normal 3.2-5.2 [facility] Comment on above: Order Comment: [facility] has implemented the eGFR calculation approach that does not have a coefficient for race that conforms to the NKF-ASN Task Force Recommendations. Performed By: #### 4 [id number] #### LAB [address] [address] Олег Wheeler M.D. [id number] ALP [Catalytic activity/Vol] 80 U/L Normal 40-150 [facility] Comment on above: Order Comment: [facility] has implemented the eGFR calculation approach that does not have a coefficient for race that conforms to the NKF-ASN Task Force Recommendations. Performed By: #### 4 [id number] ####[facility] LAB [address] [address] Олег Wheeler M.D. [id number] ALT [Catalytic activity/Vol] 10 U/L Normal 0-35 U/L [facility] Comment on above: Order Comment: [facility] has implemented the eGFR calculation approach that does not have a coefficient for race that conforms to the NKF-ASN Task Force Recommendations. Performed By: #### 4 [id number] #### LAB [address] [address] Олег Wheeler M.D. [id number] Anion gap [Moles/Vol] 13 mmol/L Normal 10-20 [facility] Comment on above: Order Comment: [facility] has implemented the eGFR calculation approach that does not have a coefficient for race that conforms to the NKF-ASN Task Force Recommendations. Performed By: #### 4 [id number] #### LAB [address] [address] Олег Wheeler M.D. [id number] AST [Catalytic activity/Vol] 18 U/L Normal 0-35 U/L [facility] Comment on above: Order Comment: [facility] has implemented the eGFR calculation approach that does not have a coefficient for race that conforms to the NKF-ASN Task Force Recommendations. Performed By: #### 4 [id number] #### LAB [address] [address] Олег Wheeler M.D. [id number] Bilirubin [Mass/Vol] 0.2 mg/dL Normal 0.0-1.3 [facility] Comment on above: Order Comment: [facility] has implemented the eGFR calculation approach that does not have a coefficient for race that conforms to the NKF-ASN Task Force Recommendations. Performed By: #### 4 6126 #### LAB [address] [address] Олег Wheeler M.D. [id number] Calcium [Mass/Vol] 9.9 mg/dL Normal 8.4-10.[address] [facility] Comment on above: Order Comment: [facility] has implemented the eGFR calculation approach that does not have a coefficient for race that conforms to the NKF-ASN Task Force Recommendations. Performed By: #### 4 [id number] #### LAB [address] [address] Олег Wheeler M.D. [id number] Chloride [Moles/Vol] 104 mmol/L Normal 98-108 [facility] Comment on above: Order Comment: [facility] has implemented the eGFR calculation approach that does not have a coefficient for race that conforms to the NKF-ASN Task Force Recommendations. Performed By: #### 4 6126 #### LAB [address] [place], [place] [address] Олег Wheeler M.D. [id number] Creatinine [Mass/Vol] 0.73 mg/dL Normal 0.60-1.10 [facility] Comment on above: Order Comment: [facility] has implemented the eGFR calculation approach that does not have a coefficient for race that conforms to the NKF-ASN Task Force Recommendations. Performed By: #### 4 [id number] #### LAB [address] [address] Олег Wheeler M.D. [id number] EGFR 87 mL/min/1.73 m2 Normal >=60 [facility] Comment on above: Order Comment: [facility] has implemented the eGFR calculation approach that does not have a coefficient for race that conforms to the NKF-ASN Task Force Recommendations. Result Comment: Jyothi mated GFR was calculated using the 2020 CKD-EPI creatinine equation. Performed By: #### 4 [id number] #### LAB [address] [address] Олег Wheeler M.D. [id number] Glucose [Mass/Vol] 106 mg/dL High 65-[address] [facility] Comment on above: Order Comment: [facility] has implemented the eGFR calculation approach that does not have a coefficient for race that conforms to the NKF-ASN Task Force Recommendations. Performed By: #### 4 6126 #### LAB [address] [address] Олег Wheeler M.D. [id number] HCO3 (Bld) [Moles/Vol] 28 mmol/L Normal 21-32 [facility] Comment on above: Order Comment: [facility] has implemented the eGFR calculation approach that does not have a coefficient for race that conforms to the NKF-ASN Task Force Recommendations. Performed By: #### 4 6126 #### LAB [address] [place], [place] [address] Олег Wheeler M.D. [id number] Potassium [Moles/Vol] 3.8 mmol/L Normal 3.5-5.1 [facility] Comment on above: Order Comment: [facility] has implemented the eGFR calculation approach that does not have a coefficient for race that conforms to the NKF-ASN Task Force Recommendations. Performed By: #### 4 6126 #### LAB [address] [id number] Олег Wheeler M.D. [id number] Protein [Mass/Vol] 7.3 g/dL Normal 6.0-8.[address] [facility] Comment on above: Order Comment: [facility] has implemented the eGFR calculation approach that does not have a coefficient for race that conforms to the NKF-ASN Task Force Recommendations. Performed By: #### 4 6126 #### LAB [address] [address] Олег Wheeler M.D. [id number] Sodium [Moles/Vol] 141 mmol/L Normal 135-[address] [facility] Comment on above: Order Comment: [facility] has implemented the eGFR calculation approach that does not have a coefficient for race that conforms to the NKF-ASN Task Force Recommendations. Performed By: #### 4 6126 #### LAB [address] [address] Олег Wheeler M.D. [id number] Urea nitrogen [Mass/Vol] 12 mg/dL Normal 8-25 [facility] Comment on above: Order Comment: [facility] has implemented the eGFR calculation approach that does not have a coefficient for race that conforms to the NKF-ASN Task Force Recommendations. Performed By: #### 4 6126 #### LAB [address] [address] Олег Wheeler M.D. [id number] Urea nitrogen/Creatinine [Mass ratio] 16.4 mg/mg Normal 10.0-20.0 [facility] Comment on above: Order Comment: [facility] has implemented the eGFR calculation approach that does not have a coefficient for race that conforms to the NKF-ASN Task Force Recommendations. Performed By: #### 4 6126 ####[facility] LAB [address] [place], [place] [address] Олег Wheeler M.D. [id number] Comprehensive metabolic 2000 panelon 07-30-2024 Albumin [Mass/Vol] 4.7 g/dL 3.2 - 5.2 g/dL [facility] ALP [Catalytic activity/Vol] 80 U/L 40 - 150 U/L [facility] ALT [Catalytic activity/Vol] 10 U/L 0-35 U/L [facility] Anion gap [Moles/Vol] 13 mmol/L 10 - 2 0 mmol/L [facility] AST [Catalytic activity/Vol] 18 U/L 0-35 U/L [facility] Bilirubin [Mass/Vol] 0.2 mg/dL 0.0 - 1 .3 mg/dL [facility] Calcium [Mass/Vol] 9.9 mg/dL 8.4 - 10. 2 mg/dL [facility] Chloride [Moles/Vol] 104 mmol/L 98 - 10 8 mmol/L [facility] Creatinine [Mass/Vol] 0.73 mg/dL 0.60 - 1.10 mg/dL [facility] GFR/1.73 sq M.predicted CKD-EPI (S/P/Bld) [Vol rate/Area] 87 - PINF [facility] Comment on above: Estimated GFR was ca lculated using the 2020 CKD-EPI creatinine equation. Glucose [Mass/Vol] 106 mg/dL High 65 - 99 mg/dL [facility] HCO3 [Moles/Vol] 28 mmol/L 21 - 32 mmol/L [facility] Interpretation and review of laboratory results Abnormal [facility] Potassium [Moles/Vol] 3.8 mmol/L 3.5 - 5.1 mmol/L [facility] Protein [Mass/Vol] 7.3 g/dL 6.0 - 8.0 g/dL [facility] Sodium [Moles/Vol] 141 mmol/L 135 - 145 mmol/L [facility] Urea nitrogen [Mass/Vol] 12 mg/dL 8 - 25 mg/dL [facility] Urea nitrogen/Creatinine [Mass ratio] 16.4 mg/mg 10.0 - 20.0 [facility] has implemented the eGFR calculation approach that does not have a coefficient for race that conforms to the NKF-ASN Task Force Recommendations. [facility] D-DIMER, QUANTITATIVEon 07-12 D-DIMER QUANTITATIVE < Normal 0.27-0.49 [facility] Comment on above: Order Comment: A [...] By: #### 4 [id number] ####[facility] LAB [address] [place], [place] [address] Олег Wheeler M.D. [id number] D-DimerOrdered By: Anna brooks on 07-30-2024 Fibrin D-dimer FEU (PPP) [Mass/Vol] [facility] Interpretation and review of laboratory results Normal [facility] A D-dimer concentrat ion of <0.5 micrograms per milliliter FEU is considered a low probability for pulmonary embolus (PE) and deep venous thrombosis (DVT). Results of this test should always be interpreted in conjunction with the patient's medical history,clinical presentation, and other findings. Clinical diagnosis should not be based on the results of the D-dimer alone. [facility] ED Prov Noteon 07-30-2024 ED Prov Note [facility] ED note NAME: Chinmay Grimaldo 73 y.o. CSN: [id number] PCP: Trang Carr MD History: Chief Complaint: [...] with her PCP. Denies history of CAD [place] PE pneumothorax she said about 15 years [...] Oral 68 16 97 % -- -- 07/30/240 122/82 -- -- 64 17 96 % [...] (*) All (more content not included)... Normal [facility] EKGon 07-30-2024 [facility] EKG 12-leadon 07-30-2024 Atrial Rate 75 BPM [facility] P Ancram 65 degrees [facility] P-R Interval 148 ms [facility] Q-T Interval 368 ms [facility] QRS Duration 84 ms [facility] QTC Calculation (Bezet) 410 ms [facility] R Ancram 45 degrees [facility] T Ancram 56 degrees [facility] Ventricular Rate 75 BPM [facility] [place] Yisel Josue MD 07/31/2024 10:04 AM EKG 12-lead Date/Time: 07/30/2024 7:36 PM Performed by: Yisel Josue MD Authorized by: Yisel Josue MD Interpreted by ED attending physician Rhythm: sinus rhythm BPM: 75 Conduction: conduction normal ST Segments: ST segments normal T Waves: T waves normal Clinical impression: non-specific ECG Comments: EKG with normal sinus rhythm rate of 75 beats per minutes PA interval 148 ms QRS duration 84 ms QTc [address]-T wave abnormalities. MUSE [facility] H AND Conor 07-30-2024 H AND [...] to monitor and adjust care as needed. [facility] HISTORY AND PHYSICAL -- [facility] Patient Name: Chinmay Grimaldo : 1950 MR #: [id number] Admit Date: 07/30/2024 Physicians: Trang Carr MD (Family); No ref. provider found (Referring) Chinmay Grimaldo is a 73 y.o. female patient of Trang Carr MD with history of GERD who presented to [facility] on 07/30/2024 with chest pain. Chest pain [...] with history of GERD who presented to [facility] on 07/30/2024 with chest pain. Pt stated she started having chest pain earlier today. She was unable to describe the pain, just described it as a sensation in the left side of her chest. It did not worsen with activity or improve with rest. Did not change with deep inspiration. She went to [place] ED for further evaluation. EKG unremarkable. CXR [...] coloration Psych: (more content not included)... Normal [facility] LIPASEon 07-30-2024 Lipase [Catalytic activity/Vol] 42 U/L Normal 15-65 [facility] Comment on above: Performed By: #### 4 6086 #### LAB [address] [place], [place] [address] Олег Wheeler M.D. [id number] Light Blue Topon 07-30-2024 Extra Tube Hold for add-ons. [facility] Comment on above: Auto resulted. [facility] Lipaseon 07-30-2024 Lipase [Catalytic activity/Vol] 42 U/L 15 - 65 U/L [facility] NT PRO BNPon 07-30-2024 Natriuretic peptide B (Bld) [Mass/Vol] 89 pg/mL Normal 0-300 [facility] Comment on above: Order Comment: Pride Study Cut-offsRule In:< /= 50 Years >450 pg/mL51 Years - 75 Years >900 pg/mL76 Years - 99 Years >1800 pg/mLRule Out:All patients <300 pg/mL Performed By: #### 4 7395 #### LAB [address] [place], [place] [address] Олег Wheeler M.D. [id number] Natriuretic peptide.B prohor robby N-Terminal [Mass/Vol]on 07-30-2024 Pride Study Cut-offs Rule In: < /= 50 Years >450 pg/mL 51 Years - 75 Years >900 pg/mL 76 Years - 99 Years >1800 pg/mL Rule Out: All patients <300 pg/mL [facility] No Panel Informationon 07-30 Interpretation and review of laboratory results Normal [facility] TROPONINon 07-30-2024 TROPONIN T DELTA CHANGE INTERPRETATION No biomarker evidence of cardiac injury. Normal [facility] Comment on above: Performed By: #### 4 6608 #### LAB [address] [place], [place] [address] Олег Wheeler M.D. [id number] TROPONIN T NG/L < Normal <=14 [facility] Comment on above: Performed By: #### 4 6608 #### LAB [address] [address] Олег Wheeler M.D. [id number] BASELINE TROPONIN T NG/L < Normal <=14 [facility] Comment on above: Performed By: #### 4 6608 ####[facility] LAB [address] [place], [place] [address] Олег Wheeler M.D. [id number] TROPONIN T INTERPRETATION Normal Normal [facility] Comment on above: Performed By: #### 4 6608 #### LAB [address] [place], [place] [address] Олег Wheeler M.D. [id number] Troponinon 07-30-2024 Interp Troponin T Delta Change No biomarker evidence of cardiac injury. [facility] Troponin T ng/L NINF - 14 ng/L [facility] Troponin x 2 (Now and Repeat in 3 hours)Ordered By: Adrienne Dolan on 07-30-2024 Troponin T ng/L NINF - 14 ng/L [facility] Troponin T Interpretation Normal [facility] XR CHEST PA/APon 07-30-2024 XR CHEST [...] SatJul 30, 2024 9:41:06 PM EST Normal [facility] Comment on above: Order Comment: Injur y/Trauma or Illness?:Illness/Other How long have you had these symptoms (acute/chronic)?:Acute Reason for exam?:chest pain History of cancer?:U Surgeries, chemotherapy, or radiation?:U Type of Exam?:Initial Additional signs and symptoms?:n XR Chest PA and Abdomen APon 07-30-2024 1. Minimal linear atelectasis or scarring in the left lower lung zone. 2. Normal heart size. 3. No acute osseous abnormality. [facility] [employer] [facility]alt Workstation ID: [id number] GE RIS EXAMINATION: 1 [...] heart size. 3. No acute osseous abnormality. [facility] [employer] [facility]Pose Workstation ID: [id number] [facility] Radiology Study observation (narrative) [facility] XR Chest PA and Abdomen APOr dered By: Rosina Spears on 07-30-2024 [facility] Work Phone: Urine Cultureon 06-20-2024 URC Culture exhibits no growth. Normal [facility] Comment on above: Performed By: #### M 100.2200 #### [facility] [address] [place], [address] Wound Ctr History AND Physic porfirio 04-23-2024 Wound Ctr History & Physical [facility] [address] [place] [address] H P Exam - Wound Care 04/23/24 1058 MR#: [id number] Acct: [id number] Name: CHINMAY GRIMALDO Rep #: [id number] : 1950 73 From: Daniel Upton DPM [...] that the area surrounding the puncture is shredder tender peat but it does appear to be healing. [...] was completed: (more content not included)... Normal [facility] Hemoglobin A1con 04-08-2024 HbA1c (Bld) [Mass fraction] 5.6 % Normal 3.8-5.6 [facility] Comment on above: Order Comment: Order Date: 04/08/24Order Info: [id number] - A1C Result Comment: Norm al < 5.7 % Prediabetic 5.7 - 6.4 % Diabetic >or= 6.5 % Please note range changes. Performed By: #### M 100.2200 #### [facility] [place], [address] Vitamin B12on 04-08-2024 Cobalamin (Vitamin B12) [Mass/Vol] 621 pg/mL Normal 211-911 [facility] Comment on above: Order Comment: Order Date: 04/08/24Order Info: 2132-9 - B12 Performed By: #### M 100.2200 #### [facility] [address] [place], [address] CBC W/Diff, Automatedon 03-13 Absolute Lymph 1.09 X10 3/uL Normal 0.83-4.51 [facility] Comment on above: Order Comment: Order Date: 03/31/24Order Info: 018- - CBCD Performed By: #### M 100.2200 #### [facility] [address] [place], [address] Absolute Neut 3.4 X10 3/uL Normal 2.0-7.7 [facility] Comment on above: Order Comment: Order Date: 03/31/24Order Info: 018- - CBCD Performed By: #### M 100.2200 #### [facility] [address] [place], [address] Basophils/100 WBC (Bld) 0.5 % Normal 0-1 [facility] Comment on above: Order Comment: Order Date: 03/31/24Order Info: 018-1 - CBCD Performed By: #### M 100.2200 #### [facility] [address] [place], [address] Eosinophils/100 WBC (Bld) 8.8 % High 0-5 [facility] Comment on above: Order Comment: Order Date: 03/31/24Order Info: 018-1 - CBCD Performed By: #### M 100.2200 #### [facility] [address] [place], [address] Erythrocyte distribution width (RBC) [Ratio] 14.0 % Normal 11.6-14.6 [facility] Comment on above: Order Comment: Order Date: 03/31/24Order Info: 018- - CBCD Performed By: #### M 100.2200 #### [facility] [address] [place], [address] Hematocrit (Bld) [Volume fraction] 38.9 % Normal 37-47 [facility] Comment on above: Order Comment: Order Date: 03/31/24Order Info: 018- - CBCD Performed By: #### M 100.2200 #### [facility] [address] [place], [address] Hemoglobin (Bld) [Mass/Vol] 12.4 g/dL Normal 12.0-15.0 [facility] Comment on above: Order Comment: Order Date: 03/31/24Order Info: 018- - CBCD Performed By: #### M 100.2200 #### [facility] [address] [place], [address] IG% 0.200 Normal 0.0-0.9 [facility] Comment on above: Order Comment: Order Date: 03/31/24Order Info: 018- - CBCD Result Comment: IG% - Immature Granulocytes (promyelocytes, myelocytes and metamyelocytes) > 1% indicates that a LEFT SHIFT is Present. Performed By: #### M 100.2200 #### [facility] [address] [place], [address] Lymphocytes/100 WBC (Bld) 19.7 % Normal 19-41 [facility] Comment on above: Order Comment: Order Date: 03/31/24Order Info: 018- - CBCD Performed By: #### M 100.2200 #### [facility] [address] [place], [address] MCH (RBC) [Entitic mass] 30.0 pg Normal 27.0-32.0 [facility] Comment on above: Order Comment: Order Date: 03/31/24Order Info: 4-1 - CBCD Performed By: #### M 100.2200 #### [facility] [address] [place], [address] MCHC (RBC) [Mass/Vol] 31.9 g/dL Low 32-36 [facility] Comment on above: Order Comment: Order Date: 03/31/24Order Info: 4-1 - CBCD Performed By: #### M 100.2200 #### [facility] [address] [place], [address] MCV (RBC) [Entitic vol] 94.0 fL Normal 81-99 [facility] Comment on above: Order Comment: Order Date: 03/31/24Order Info: 183- - CBCD Performed By: #### M 100.2200 #### [facility] [address] [place], [address] Monocytes/100 WBC (Bld) 8.7 % Normal 0-10 [facility] Comment on above: Order Comment: Order Date: 03/31/24Order Info: 183- - CBCD Performed By: #### M 100.2200 #### [facility] [address] [place], [address] Neutrophils/100 WBC (Bld) 62.1 % Normal 47-70 [facility] Comment on above: Order Comment: Order Date: 03/31/24Order Info: 183-1 - CBCD Performed By: #### M 100.2200 #### [facility] [address] [place], [address] Nucleated RBC (Bld) [#/Vol] 0 10*3/uL Normal 0-5 [facility] Comment on above: Order Comment: Order Date: 03/31/24Order Info: 4-1 - CBCD Performed By: #### M 100.2200 #### [facility] [address] [place], [address] Platelet mean volume (Bld) [Entitic vol] 10.3 fL Normal 6.2-12.0 [facility] Comment on above: Order Comment: Order Date: 03/31/24Order Info: 183- - CBCD Performed By: #### M 100.2200 #### [facility] [address] [place], [address] Platelets (Bld) [#/Vol] 245 10*3/uL Normal 150-450 [facility] Comment on above: Order Comment: Order Date: 03/31/24Order Info: 183- - CBCD Performed By: #### M 100.2200 #### [facility] [address] [place], [address] RBC (Bld) [#/Vol] 4.14 10*6/uL Low 4.2-5.4 [facility] Comment on above: Order Comment: Order Date: 03/31/24Order Info: 183- - CBCD Performed By: #### M 100.2200 #### [facility] [address] [place], [address] RDW SD 48.0 fl High 35.1-43.9 [facility] Comment on above: Order Comment: Order Date: 03/31/24Order Info: 183- - CBCD Performed By: #### M 100.2200 #### [facility] [address] [place], [address] WBC (Bld) [#/Vol] 5.5 10*3/uL Normal 4.4-11.0 [facility] Comment on above: Order Comment: Order Date: 03/31/24Order Info: 183-1 - CBCD Performed By: #### M 100.2200 #### [facility] [address] [place], [address] Comprehensive Metabolic Prof ilon 04-01-2024 Albumin [Mass/Vol] 3.4 g/dL Normal 3.2-5.0 [facility] Comment on above: Order Comment: Order Date: 03/31/24Order Info: 0786-1 - CMPOrder Info: [id number] - LIPID Performed By: #### M 100.2200 #### [facility] [address] [place], [address] Albumin/Globulin [Mass ratio] 0.9 {ratio} Normal 0.9-2.4 [facility] Comment on above: Order Comment: Order Date: 03/31/24Order Info: 86-1 - CMPOrder Info: [id number] - LIPID Performed By: #### M 100.2200 #### [facility] [address] [place], [address] ALK P 102 U/L Normal 45-117 [facility] Comment on above: Order Comment: Order Date: 03/31/24Order Info: 07-1 - CMPOrder Info: [id number] - LIPID Performed By: #### M 100.2200 #### [facility] [address] [place], [address] ALT [Catalytic activity/Vol] 20 U/L Normal 13-56 [facility] Comment on above: Order Comment: Order Date: 03/31/24Order Info: 0786-1 - CMPOrder Info: [id number] - LIPID Performed By: #### M 100.2200 #### [facility] [address] [place], [address] AST [Catalytic activity/Vol] 11 U/L Low 15-37 [facility] Comment on above: Order Comment: Order Date: 03/31/24Order Info: [id number] - CMPOrder Info: [id number] - LIPID Performed By: #### M 100.2200 #### [facility] [address] [place], [address] Bilirubin [Mass/Vol] 0.40 mg/dL Normal 0.20-1.00 [facility] Comment on above: Order Comment: Order Date: 03/31/24Order Info: [id number] - CMPOrder Info: [id number] - LIPID Result Comment: For patients on eltrombopag therapy, use of Dimension [place] TBIL is not recommended. Performed By: #### M 100.2200 #### [facility] [address] [place], [address] BUN/CRE 18.8 RATIO Normal 10-20 [facility] Comment on above: Order Comment: Order Date: 03/31/24Order Info: [id number] - CMPOrder Info: [id number] - LIPID Performed By: #### M 100.2200 #### [facility] [address] [place], [address] CA,Total 9.5 mg/dL Normal 8.5-10.1 [facility] Comment on above: Order Comment: Order Date: 03/31/24Order Info: [id number]- - CMPOrder Info: [id number] - LIPID Performed By: #### M 100.2200 #### [facility] [address] [place], [address] Chloride [Moles/Vol] 105 mmol/L Normal 98-107 [facility] Comment on above: Order Comment: Order Date: 03/31/24Order Info: [id number]- - CMPOrder Info: [id number] - LIPID Performed By: #### M 100.2200 #### [facility] [address] [place], [address] CO2 [Moles/Vol] 28.0 mmol/L Normal 21.0-32.0 [facility] Comment on above: Order Comment: Order Date: 03/31/24Order Info: [id number]- - CMPOrder Info: [id number] - LIPID Performed By: #### M 100.2200 #### [facility] [address] [place], [address] Creatinine [Mass/Vol] 0.75 mg/dL Normal 0.55-1.02 [facility] Comment on above: Order Comment: Order Date: 03/31/24Order Info: [id number] - CMPOrder Info: [id number] - LIPID Result Comment: The validity of the calculated GFR GFRAA in patients over 70 years has not been determined. Clinical correlation is essential. Performed By: #### M 100.2200 #### [facility] [address] [place], [address] EST GFR - AA 98 mL/min Normal >60 [facility] Comment on above: Order Comment: Order Date: 03/31/24Order Info: [id number]- - CMPOrder Info: [id number] - LIPID Result Comment: Afri can Spanish GFR Calc Performed By: #### M 100.2200 #### [facility] [address] [place], [address] GAP 6 Normal 5-15 [facility] Comment on above: Order Comment: Order Date: 03/31/24Order Info: [id number] - CMPOrder Info: [id number] - LIPID Performed By: #### M 100.2200 #### [facility] [address] [place], [address] GFR/1.73 sq M.predicted among non-blacks MDRD (S/P/Bld) [Vol rate/Area] 81 mL/min/{1.73_m2} Normal >60 [facility] Comment on above: Order Comment: Order Date: 03/31/24Order Info: [id number] - CMPOrder Info: [id number] - LIPID Result Comment: Non- GFR Calc Performed By: #### M 100.2200 #### [facility] [address] [place], [address] Globulin (S) [Mass/Vol] 3.8 g/dL Normal 2.2-4.2 [facility] Comment on above: Order Comment: Order Date: 03/31/24Order Info: [id number] - CMPOrder Info: [id number] - LIPID Performed By: #### M 100.2200 #### [facility] [address] [place], [address] Glucose [Mass/Vol] 110 mg/dL High 74-106 [facility] Comment on above: Order Comment: Order Date: 03/31/24Order Info: [id number] - CMPOrder Info: [id number] - LIPID Result Comment: Fast ing Glucose result from 100 to 125 mg/dL suggests IMPAIRED HOMEOSTASIS per A.D.A. criteria. Performed By: #### M 100.2200 #### [facility] [address] [place], [address] Potassium [Moles/Vol] 3.9 mmol/L Normal 3.5-5.1 [facility] Comment on above: Order Comment: Order Date: 03/31/24Order Info: 785- - CMPOrder Info: [id number] - LIPID Performed By: #### M 100.2200 #### [facility] [address] [place], [address] Sodium [Moles/Vol] 139 mmol/L Normal 136-145 [facility] Comment on above: Order Comment: Order Date: 03/31/24Order Info: [id number]- - CMPOrder Info: [id number] - LIPID Performed By: #### M 100.2200 #### [facility] [address] [place], [address] T PROT 7.2 g/dL Normal 6.4-8.2 [facility] Comment on above: Order Comment: Order Date: 03/31/24Order Info: 07- - CMPOrder Info: [id number] - LIPID Performed By: #### M 100.2200 #### [facility] [address] [place], [address] Urea nitrogen [Mass/Vol] 14 mg/dL Normal 7-18 [facility] Comment on above: Order Comment: Order Date: 03/31/24Order Info: [id number] - CMPOrder Info: [id number] - LIPID Performed By: #### M 100.2200 #### [place] [facility] [address] [place], [address] Lipid Profileon 04-01-2024 Cholesterol [Mass/Vol] 167 mg/dL Normal 200 [facility] Comment on above: Order Comment: Order Date: 03/31/24Order Info: [id number]- - CMPOrder Info: [id number] - LIPID Result Comment: <200 mg/dL Desirable 200-240 mg/dL Borderline >240 mg/dL High Risk Performed By: #### M 100.2200 #### [facility] [address] [place], [address] Cholesterol in HDL [Mass/Vol] 72 mg/dL Normal [facility] Comment on above: Order Comment: Order Date: 03/31/24Order Info: [id number] - CMPOrder Info: [id number] - LIPID Result Comment: The drugs N-Acetylcysteine and Metamizole may falsely depress this assay. Reference Range HDL <40 mg/dL Low HDL Cholesterol HDL >or= 60 mg/dL High HDL Cholesterol Performed By: #### M 100.2200 #### [facility] [address] [place], [address] Cholesterol in LDL [Mass/Vol] 74 mg/dL Normal 0-130 [facility] Comment on above: Order Comment: Order Date: 03/31/24Order Info: [id number] - CMPOrder Info: [id number] - LIPID Performed By: #### M 100.2200 #### [facility] [address] [place], [address] Cholesterol in VLDL [Mass/Vol] 21 mg/dL Normal 5-40 [facility] Comment on above: Order Comment: Order Date: 03/31/24Order Info: 07 - CMPOrder Info: [id number] - LIPID Performed By: #### M 100.2200 #### [facility] [address] [place], [address] Triglyceride [Mass/Vol] 106 mg/dL Normal [facility] Comment on above: Order Comment: Order Date: 03/31/24Order Info: [id number] - CMPOrder Info: [id number] - LIPID Result Comment: The drugs N-Acetylcysteine and Metamizole may falsely depress this assay. Serum Triglycerides Reference Interval Normal <150 mg/dL Borderline high 150 - 199 mg/dL High 200 - 499 mg/dL Very High > or = 500 mg/dL Performed By: #### M 100.2200 #### [facility] [address] [place], [place], [address] Vitamin D,25 Hydroxyon 04-01 Vitamin D 25-OH 77.8 ng/mL Normal [facility] Comment on above: Order Comment: Order Date: 03/31/24Order Info: [id number] - [id number] Result Comment: Emily min D 25(OH) Status Range Deficiency <20 ng/mL (50nmol/L) Insufficiency 20 - 30 ng/mL (50 - 75 nmol/L) Sufficiency 30 - 100 ng/mL (75 - 250 nmol/L) Toxicity >100 ng/mL (>250 nmol/L) Performed By: #### M 100.2200 #### [facility] [address] [place], [place], [address] Basophil percentageOrdered B y: Sondra Vu on 09-26-2023 Bilirubin [Mass/Vol] 0.60 mg/dL 0.20-1.00 [facility] Comment on above: For patients on eltr ombopag therapy, use of Dimension [place] TBIL is not recommended. Chloride [Moles/Vol] 107 mmol/L 98-107 [facility] Cholesterol [Mass/Vol] 185 mg/dL <200 [facility] Comment on above: <200 mg/dL Desirable 200-240 mg/dL Borderline >240 mg/dL High Risk Glucose [Mass/Vol] 91 mg/dL 74-106 [facility] Potassium [Moles/Vol] 4.0 mmol/L 3.5-5.1 [facility] Protein [Mass/Vol] 7.3 g/dL 6.4-8.2 [facility] Sodium [Moles/Vol] 141 mmol/L 136-145 [facility] Triglyceride [Mass/Vol] 103 mg/dL <199 [facility] Comment on above: The drugs N-Acetylcy steine and Metamizole may falsely depress this assay.Serum Triglycerides Reference Interval Normal <150 mg/dL Borderline high 150 - 199 mg/dL High 200 - 499 mg/dL Very High > or = 500 mg/dL Laboratory - Chemistry and C hemistry - challengeOrdered By: Sondra Vu on 09-26-2023 Albumin/Globulin [Mass ratio] 1.1 {ratio} 0.9-2.4 [facility] ALP [Catalytic activity/Vol] 99 U/L 45-117 [facility] ALT [Catalytic activity/Vol] 21 U/L 13-56 [facility] Cholesterol in HDL [Mass/Vol] 86 mg/dL >40 [facility] Comment on above: The drugs N-Acetylcy steine and Metamizole may falsely depress this assay. Reference Range HDL <40 mg/dL Low HDL Cholesterol HDL >or= 60 mg/dL High HDL Cholesterol Cholesterol in LDL [Mass/Vol] 78 mg/dL 0-130 [facility] CO2 [Moles/Vol] 28.0 mmol/L 21.0-32.0 [facility] Cobalamin (Vitamin B12) [Mass/Vol] 977 pg/mL 211-911 [facility] Ferritin [Mass/Vol] 64 ng/mL 8-252 [facility] Globulin (S) [Mass/Vol] 3.5 g/dL 2.2-4.2 [facility] Urea nitrogen/Creatinine [Mass ratio] 13.7 mg/mg 10-20 [facility] No Panel InformationOrdered By: Sondra Vu on 09-26-2023 Estimated GFR (MDRD) Amer 90 mL/min >60 [facility] Comment on above: GFR Calc Estimated GFR (MDRD) Non-Af Amer 74 mL/min >60 [facility] Comment on above: Non- GFR Calc Vitamin D 25-Hydroxy 46.2 ng/mL [facility] Comment on above: Vitamin D 25(OH) Sta tus Range Deficiency <20 ng/mL (50nmol/L) Insufficiency 20 - 30 ng/mL (50 - 75 nmol/L) Sufficiency 30 - 100 ng/mL (75 - 250 nmol/L) Toxicity >100 ng/mL (>250 nmol/L) VLDL Cholesterol 21 mg/dL 5-40 [facility] Serum or plasma calcium charley urement (mass/volume)Ordered By: Sondra Vu on 09-26-2023 Calcium [Mass/Vol] 9.7 mg/dL 8.5-10.1 [facility] Serum or plasma creatinine m easurement (mass/volume)Ordered By: Sondra Vu on 09-26-2023 Creatinine [Mass/Vol] 0.80 mg/dL 0.55-1.02 [facility] Comment on above: The validity of the calculated GFR & GFRAA in patients over 70 years has not been determined. Clinical correlation is essential. Serum or plasma urea nitroge n measurement (mass/volume)Ordered By: Sondra Vu on 09-26-2023 Urea nitrogen [Mass/Vol] 11 mg/dL 7-18 [facility] Thin prep Papanicolaou smear with manual screeningOrdered By: Sondra Vu on 09-26-2023 Thin prep Papanicolaou smear with manual screening 3.8 g/dL 3.2-5.0 [facility] Thin prep Papanicolaou smear with manual screening 21 U/L 15-37 [facility] Thin prep Papanicolaou smear with manual screening 6 5-15 [facility] No Panel InformationOrdered By: Dr. Espinoza on 01-25-2023 Endomysial IgA Antibody Negative Negative [facility] Serum IgA measurement (units /volume)Ordered By: Dr. Espinoza on 01-25-2023 IgA Qn (S) 157 mg/dL 64-422 [facility] Comment on above: Performed at: - [id number] [id number] Director: Sergio Tovar PhD, Phone: [phone] Serum or plasma C reactive p rotein measurement (mass/volume)Ordered By: Dr. Espinoza on 01-25-2023 CRP [Mass/Vol] mg/L 0.0-3.0 [facility] Comment on above: C-Reactive Protein ( CRP) provides useful information for thediagnosis, therapy and monitoring of inflammatory processesand associated diseases. For the evaluation of Relative Riskfor Cardiovascular Disease, a High Sensitivity CRP (HSCRP)should be ordered. Serum tissue transglutaminas e IgA antibody assay (units/volume)Ordered By: Dr. Espinoza on 01-25-2023 tTG IgA Qn (S) <2 U/mL 0-3 [facility] Comment on above: Negative 0 - [...] with elsie; 12/12/2022 2:10 pm ACCESSION NUMBER(S): [id number] ORDERING CLINICIAN: SAMMIE HILARIO INDICATION: Screening. COMPARISON: [...] Screening. Electronically signed by: JOSE PATTERSON MD [facility] US PELVIS TRANSABDOMINAL WIT H TRANSVAGINALon 11-23-2022 US PELVIS TRANSABDOMINAL WITH TRANSVAGINAL Patient Name: CHINMAY GRIMALDO STUDY: US PELVIS TRANSABDOMINAL WITH TRANSVAGINAL; 11/23/2022 11:29 am INDICATION: RIGHT LOWER QUADRANT PAIN. COMPARISON: None. ACCESSION NUMBER(S): [id number] ORDERING CLINICIAN: ERNESTINA AYOUB TECHNIQUE: Multiple multiplanar [...] gas. Electronically signed by: EVERTON VIEIRA MD [facility] BONE DENSITY, DEXA 1 OR MORE SITES: [...] bone Densitometry (DEXA). COMPARISON: 06/06/2020. ACCESSION NUMBER(S): [id number] ORDERING CLINICIAN: SAMMIE HILARIO TECHNIQUE: Bone Densitometry [...] warranted. Electronically signed by: JOSE PATTERSON MD [facility] FOOT COMPLETE, MIN 3 VIEWSon 01-24-2022 FOOT COMPLETE, MIN 3 VIEWS Patient Name: CHINMAY GRIMALDO STUDY: FOOT; COMPLETE, MIN 3 VIEWS INDICATION: [id number]. COMPARISON: None ACCESSION NUMBER(S): [id number] ORDERING CLINICIAN: DIPAK SETH FINDINGS: Nondisplaced fracture of the base of the right 5th metatarsal. No dislocation. No other osseous lesion. IMPRESSION: Nondisplaced right 5th metatarsal base fracture. Electronically signed by: ANDREEA ALEJANDRA MD [facility] GROUP A STREP,PCRon 01-25-20 22 GROUP A STREP,PCR Not detected Normal Not Detected [facility] Comment on above: Result Comment: This test was performed utilizing an FDA-cleared rapid nucleic acid amplification by PCR to qualitatively detect Group A Streptococci from throat swab specimens without the need for culture confirmation of negative results. Performed By: #### G APC1 #### [place] [address] Lab Specimen Source Throat Normal [facility] Comment on above: Performed By: #### G APC1 #### [place] [id number] Provider Note - ED v3on 01-10 Provider [...] ~01/2022) of the COVID-19 vaccine. Received the 7933-7618 flu vaccine. Received the pneumonia vaccine. CRITICAL CARE VITAL SIGNS: T PRBP SpO2O2(LPM) %FiO2 Method 24-Jan-2022 08:08:[id number]/61 98 MDM MDM/ED COURSE: This note was [...] last night; has not tried any other kxgb-eck-fjbfhhk medications or home remedies for symptom management. No known ill contacts. Has received the COVID-19 vaccine x 2 + 2 boosters, the 3103-0945 flu vaccine, and a pneumonia vaccine. Is [...] Musculoskeletal: Grossly normal; appropriate for age. Integumentary: [place], warm, dry, and intact. No rashes or [...] negative so far. [facility] and wait [facility]. Rx for Amoxicillin sent to p (more content not included)... Normal [facility] GROUP A STREP,PCRon 10-30-19 GROUP A STREP,PCR Not detected Normal Not Detected [facility] Comment on above: Result Comment: This test and its performance have been Validated by [facility] Laboratory using analyte specific reagents (ASR). It has not been cleared or approved by the U.S. Food and Drug Administration. The FDA has determined that such clearance or approval is not necessary. Performed By: #### G APC1 #### [facility] [address] [place] [address] GROUP A STREP,PCRon 10-29-19 Lab Specimen Source Throat Normal [facility] Comment on above: Performed By: #### G APC1 #### [facility] [address] [place] [address] ASOon 09-01-2021 ASO 196 IU/mL Normal 0 - 200 [facility] Comment on above: Performed By: #### A SO #### [facility] [address] [place] [address] CBC AND DIFFERENTIALon 08-31 Basophils (Bld) [#/Vol] 0.00 10*3/uL Normal 0.00 - 0.10 [facility] Comment on above: Performed By: #### C BCDF #### [address] [address] Basophils/100 WBC (Bld) 0.7 % Normal 0.0 - 2.0 [facility] Comment on above: Performed By: #### C BCDF #### [address] [address] Eosinophils (Bld) [#/Vol] 0.10 10*3/uL Normal 0.00 - 0.70 [facility] Comment on above: Performed By: #### C BCDF #### [address] [address] Eosinophils/100 WBC (Bld) 1.3 % Normal 0.0 - 6.0 [facility] Comment on above: Performed By: #### C BCDF #### [address] [address] Erythrocyte distribution width (RBC) [Ratio] 14.2 % Normal 11.5 - 14.5 [facility] Comment on above: Performed By: #### C BCDF #### [address] [address] Hematocrit (Bld) [Volume fraction] 44.1 % Normal 36.0 - 46.0 [facility] Comment on above: Performed By: #### C BCDF #### [address] [address] Hemoglobin (Bld) [Mass/Vol] 14.6 g/dL Normal 12.0 - 16.0 [facility] Comment on above: Performed By: #### C BCDF #### [address] [address] Lymphocytes (Bld) [#/Vol] 0.80 10*3/uL Low 1.20 - 4.80 [facility] Comment on above: Performed By: #### C BCDF #### [address] [address] Lymphocytes/100 WBC (Bld) 16.2 % Normal 13.0 - 44.0 [facility] Comment on above: Performed By: #### C BCDF #### [address] [address] MCHC (RBC) [Mass/Vol] 33.0 g/dL Normal 32.0 - 36.0 [facility] Comment on above: Performed By: #### C BCDF #### [address] [address] MCV (RBC) [Entitic vol] 94 fL Normal 80 - 100 [facility] Comment on above: Performed By: #### C BCDF #### [address] [address] Monocytes (Bld) [#/Vol] 0.30 10*3/uL Normal 0.10 - 1.00 [facility] Comment on above: Performed By: #### C BCDF #### [address] [address] Monocytes/100 WBC (Bld) 6.2 % Normal 2.0 - 10.0 [facility] Comment on above: Performed By: #### C BCDF #### [address] [address] Neutrophils (Bld) [#/Vol] 3.90 10*3/uL Normal 1.20 - 7.70 [facility] Comment on above: Result Comment: Perc ent differential counts (%) should be interpreted in the context of the absolute cell counts (cells/L). Performed By: #### C BCDF #### [address] [address] Neutrophils/100 WBC (Bld) 75.6 % Normal 40.0 - 80.0 [facility] Comment on above: Performed By: #### C BCDF #### [address] [address] NUCLEATED RBC 0.4 /100 WBC Normal [facility] Comment on above: Performed By: #### C BCDF #### [address] [address] Platelets (Bld) [#/Vol] 222 10*3/uL Normal 150 - 450 [facility] Comment on above: Performed By: #### C BCDF #### [address] [address] RBC 4.72 x10E12/L Normal 4.00 - 5.20 [facility] Comment on above: Performed By: #### C BCDF #### [address] [address] WBC (Bld) [#/Vol] 5.2 10*3/uL Normal 4.4 - 11.3 [facility] Comment on above: Performed By: #### C BCDF #### [address] [address] COMPREHENSIVE PANELon 2021 Albumin [Mass/Vol] 4.4 g/dL Normal 3.4 - 5.0 [facility] Comment on above: Performed By: #### C MP #### [address] [address] ALP [Catalytic activity/Vol] 80 U/L Normal 33 - 136 [facility] Comment on above: Performed By: #### C MP #### [address] [address] ALT [Catalytic activity/Vol] 12 U/L Normal 7 - 45 [facility] Comment on above: Result Comment: Stephanie ents treated with Sulfasalazine may generate falsely decreased results for ALT. Performed By: #### C MP #### [address] [address] Anion gap [Moles/Vol] 11 mmol/L Normal 10 - 20 [facility] Comment on above: Performed By: #### C MP #### [address] [address] AST [Catalytic activity/Vol] 14 U/L Normal 9 - 39 [facility] Comment on above: Performed By: #### C MP #### [address] [address] Bilirubin [Mass/Vol] 0.6 mg/dL Normal 0.0 - 1.2 [facility] Comment on above: Performed By: #### C MP #### [address] [address] Calcium [Mass/Vol] 9.6 mg/dL Normal 8.6 - 10.3 [facility] Comment on above: Performed By: #### C MP #### [address] [address] Chloride [Moles/Vol] 101 mmol/L Normal 98 - 107 [facility] Comment on above: Performed By: #### C MP #### [address] [address] Creatinine [Mass/Vol] 0.75 mg/dL Normal 0.50 - 1.05 [facility] Comment on above: Performed By: #### C MP #### [address] [address] GFR/1.73 sq M.predicted among non-blacks MDRD (S/P/Bld) [Vol rate/Area] 85 mL/min/{1.73_m2} Normal >90 [facility] Comment on above: Result Comment: CALC ULATIONS OF ESTIMATED GFR ARE PERFORMED USING THE 2020 CKD-EPI STUDY REFIT EQUATION WITHOUT THE RACE VARIABLE FOR THE IDMS-TRACEABLE CREATININE METHODS. https://jasn.asnjournals.org/content/early//ASN.26302 02423 Performed By: #### C MP #### [address] [address] Glucose [Mass/Vol] 110 mg/dL High 74 - 99 [facility] Comment on above: Performed By: #### C MP #### [address] [address] HCO3 (Bld) [Moles/Vol] 31 mmol/L Normal 21 - 32 [facility] Comment on above: Performed By: #### C MP #### [address] [address] Potassium [Moles/Vol] 3.9 mmol/L Normal 3.5 - 5.3 [facility] Comment on above: Performed By: #### C MP #### [address] [address] Protein [Mass/Vol] 7.3 g/dL Normal 6.4 - 8.2 [facility] Comment on above: Performed By: #### C MP #### [address] [address] Sodium [Moles/Vol] 139 mmol/L Normal 136 - 145 [facility] Comment on above: Performed By: #### C MP #### [address] [address] Urea nitrogen [Mass/Vol] 12 mg/dL Normal 6 - 23 [facility] Comment on above: Performed By: #### C MP #### [address] [address] Covid 19 Resultson 2 SARS-CoV-2 (COVID-19) RNA [...] You may also be contacted by the [facility] to see if any of your close [...] or Naproxen (Aleve) can also be used. Iqpe-ehs-lkohias cough and cold medicines can be used according to the instructions on the package. Some oubw-lap-qaevknc medicines also contain acetaminophen. Make sure you [...] water are not available, use alcohol-based hand demand manager. Avoid touching your eyes, nose, and mouth [...] 24 lynda (more content not included)... Normal [facility] INFLUENZA A/B, COVID 2019 PC R,SYMPTOMATICon 08-29-2021 INFLUENZA A, PCR Not detected Normal Not Detected [facility] Comment on above: Result Comment: Resp iratory virus testing is performed routinely by PCR for Influenza A/B and RSV. If Influenza and RSV PCR are negative, testing for parainfluenza 1,2,3 viruses and adenovirus is routinely performed for oncology inpatients and intensive care unit patients at [facility] and is available on request on other patients by calling Laboratory Client Services at [phone]. Not Detected results do not preclude Influenza A/B or RSV infections since the adequacy of sample collection or low viral burden may impact the clinical sensitivity of this test method. Performed By: #### C OINP #### [facility] [address] [place] [address] INFLUENZA B, PCR Not detected Normal Not Detected [facility] Comment on above: Result Comment: Resp iratory virus testing is performed routinely by PCR for Influenza A/B and RSV. If Influenza and RSV PCR are negative, testing for parainfluenza 1,2,3 viruses and adenovirus is routinely performed for oncology inpatients and intensive care unit patients at [facility] and is available on request on other patients by calling Laboratory Client Services at [phone] Not Detected results do not preclude Influenza [...] by the Microbiology Laboratory, Department of Pathology, [facility], [place], [place]. It has not been cleared or approved by the US Food and Drug Administration; however, FDA clearance or approval is not currently required for clinical use. This test should not be regarded as investigational or for research purposes. Performed By: #### C OINP #### [facility] [address] [place] [address] SARS-CoV-2 (COVID-19) RNA KINGS+probe Ql (Unsp spec) Not detected Normal Not Detected [facility] Comment on above: Result Comment: . This [...] patient management decisions. Fact sheet for providers: https://www.fda.gov/media/315540/download Fact sheet for patients: https://www.fda.gov/media/058539/download This test has received FDA Emergency Use Authorization (EUA) and has been verified by [facility] ([facility]). This test is only authorized for the duration of time that circumstances exist to justify the authorization of the emergency use of in vitro diagnostic tests for the detection of SARS-CoV-2 virus and/or diagnosis of COVID-19 infection under section 564(b)(1) of the Act, 21 U.S.C. 360bbb-3(b)(1), unless the authorization is terminated or revoked sooner. [facility] is certified under CLIA-88 as qualified to perform high complexity testing. Testing is performed in the [facility] laboratories located at [address] [place] [address]. Performed By: #### C OINP #### [address] [place] [address] INFLUENZA A/B, COVID 2019 PC R,SYMPTOMATICon 08-28-2021 DATE OF SYMPTOM ONSET [YYYYMMDD]? [id number] Normal [facility] Comment on above: Performed By: #### C OINP #### [address] [place] [address] Lab Specimen Source Nasal, Nasopharyngeal Normal [facility] Comment on above: Performed By: #### C OINP #### [place] [address] PT Progress Noteon 1 PT Progress Note [...] aching. Insurance Insurance reviewed Visit number: POC: [facility] Evaluating therapist Naveen sEtrada PT. -->DT M75.41; M25.511 Subjective Patient reports:. [...] Flexion: 5/5 -->5/5 Elbow Extension: 5/5 -->5/5 Liquid Fertilizer Servicer: good . Observation Palpation: R bicipital groove area tenderness. ROM / Joint Mobility (Range of Motion in degrees) Shoulder: (Fabian: P! Denotes Pain with Movement, * Indicates [place] Resistant Otherwise Measurements are in Supine) Flexion: [...] code time is 40 minutes. Therapeutic exercise (79805): timed minutes 32, units 2 . UBE [...] x 5 ea direction . Manual Therapy (85052): timed minutes 8, units 1 . Post GH Mobs gr 3 loose pack (X) STW to R pec, infraspinatus, biceps tendon, upper/mid/low trap x8' Passive ROM all planes (X). 10/05/20 [id number] Provided and reviewed for progression 09/21/20 [id number] Provided and reviewed for progression. 09/16/20 [id number] Provided and reviewed for HEP. Provided today: education and equipment provided . Access Code: [email or web address] URL: [email or web address] Date: 10/31/2020 Prepared by: Nasreen Eubanks Exercises [...] Oct 31 2020 1:35PM EST (Author) Normal [employer] PT Progress Noteon 1 PT Progress Note [...] Insurance reviewed Visit number: 16 POC: 07/27 [facility] Evaluating therapist Naveen Estrada PT. -->DT [...] code time is 44 minutes. Therapeutic exercise (55201): timed minutes 32, units 2 . UBE [...] x 5 ea direction . Manual Therapy (59699): timed minutes 12, units 1 . Post GH Mobs gr 3 loose pack STW to R pec, infraspinatus, biceps tendon, upper/mid/low trap Passive ROM all planes x8'. 10/05/20 [id number] Provided and reviewed for progression 09/21/20 [id number] Provided and reviewed for progression. 09/16/20 [id number] Provided and reviewed for HEP. Provided today: [...] Signatures Electronically signed by : Shawanda Perez CHIP BIN CONVEYOR TENDER; Oct 26 2020 1:03PM EST (Author) Electronically signed by : Nasreen Hutchins PT; Oct 31 2020 8:26AM EST Normal [employer] PT Progress Noteon PT Progress Note Therapy [...] Insurance reviewed Visit number: 15 POC: 07/27 [facility] Evaluating therapist Naveen Estrada PT. -->DT [...] code time is 44 minutes. Therapeutic exercise (92215): timed minutes 32, units 2 . UBE [...] x 5 ea direction . Manual Therapy (64188): timed minutes 12, units 1 . Post GH Mobs gr 3 loose pack STW to R pec, infraspinatus, biceps tendon, upper/mid/low trap Passive ROM all planes x8'. 10/05/20 [id number] Provided and reviewed for progression 09/21/20 [id number] Provided and reviewed for progression. 09/16/20 [id number] Provided and reviewed for HEP. Provided today: [...] Signatures Electronically signed by : Shawanda Perez, CHIP BIN CONVEYOR TENDER; Oct 19 2020 1:01PM EST (Author) Electronically [...] Insurance reviewed Visit number: 14 POC: 07/27 [facility] Evaluating therapist Naveen Estrada PT. -->DT [...] code time is 44 minutes. Therapeutic exercise (56814): timed minutes 32, units 2 . UBE [...] x 5 ea direction . Manual Therapy (27404): timed minutes 12, units 1 . Post GH Mobs gr 3 loose pack STW to R pec, infraspinatus, biceps tendon, upper/mid/low trap Passive ROM all planes x8'. 10/05/20 [id number] Provided and reviewed for progression 09/21/20 [id number] Provided and reviewed for progression. 09/16/20 [id number] Provided and reviewed for HEP. Provided today: [...] Signatures Electronically signed by : Shawanda Perez CHIP BIN CONVEYOR TENDER; Oct 14 2020 10:00AM EST (Author) Electronically signed by : Nasreen Hutchins, PT; Oct 25 2020 1:45PM EST Normal [employer] PT Progress Noteon PT Progress Note Therapy [...] Insurance reviewed Visit number: 12 POC: 07/27 [facility] Evaluating therapist Naveen Estrada PT. -->DT [...] code time is 42 minutes. Therapeutic exercise (71999): timed minutes 30, units 2 . UBE [...] x 5 ea direction . Manual Therapy (14706): timed minutes 12, units 1 . Post GH Mobs gr 3 loose pack STW to R pec, infraspinatus, biceps tendon, upper/mid/low trap Passive ROM all planes x8'. 10/05/20 [id number] Provided and reviewed for progression 09/21/20 [id number] Provided and reviewed for progression. 09/16/20 [id number] Provided and reviewed for HEP. Provided today: [...] Signatures Electronically signed by : Mary Dyson CHIP BIN CONVEYOR TENDER; Oct 05 2020 10:22AM EST (Author) Electronically signed by : Nasreen Hutchins, PT; Oct 25 2020 1:45PM EST Normal [employer] PT Progress Noteon 1 PT Progress Note [...] Insurance reviewed Visit number: 11 POC: 06/27 [facility] Evaluating therapist Naveen Estrada PT. -->DT [...] 5/5 Elbow Flexion: 5/5 Elbow Extension: 5/5 Liquid Fertilizer Servicer: good Palpation: tenderness to palpation in R biceps tendon, pec, UT, rhomboids, mid/low trap, infraspinatus Joint Mobility: GH RUE Posterior: 2/6 Inferior: 3/6 Posture: rounded shoulders, mild forward head . Observation Palpation: R bicipital groove area tenderness. ROM / Joint Mobility (Range of Motion in degrees) Shoulder: (Fabian: P! Denotes Pain with Movement, * Indicates [place] Resistant Otherwise Measurements are in Supine) Flexion: [...] code time is 43 minutes. Therapeutic exercise (54657): timed minutes 30, units 2 . UBE [...] x10 10? hold (X) . Manual Therapy (91901): timed minutes 13, units 1 . Post GH Mobs gr 3 loose pack STW to R pec, infraspinatus, biceps tendon, upper/mid/low trap Passive ROM all planes x8' (X). 09/21/20 [id number] Provided and reviewed for progression. 09/16/20 [id number] Provided and reviewed for HEP. Provided today: [...] Oct 03 2020 6:10PM EST (Author) Normal [employer] Therapy Re-eval Noteon 10-03 Therapy Re-eval Note [...] Insurance reviewed Visit number: 11 [facility]OC: 06/27 [facility] Naveen Estrada PT. -->DT [...] 5/5 Elbow Flexion: 5/5 Elbow Extension: 5/5 Liquid Fertilizer Servicer: good Palpation: tenderness to palpation in R biceps tendon, pec, UT, rhomboids, mid/low trap, infraspinatus Joint Mobility: GH RUE Posterior: 2/6 Inferior: 3/6 Posture: rounded shoulders, mild forward head . Observation Palpation: R bicipital groove area tenderness. ROM / Joint Mobility (Range of Motion in degrees) Shoulder: (Fabian: P! Denotes Pain with Movement, * Indicates [place] Resistant Otherwise Measurements are in Supine) Flexion: [...] code time is 43 minutes. Therapeutic exercise (90077): timed minutes 30, units 2 . UBE [...] x10 10? hold (X) . Manual Therapy (16887): timed minutes 13, units 1 . Post GH Mobs gr 3 loose pack STW to R pec, infraspinatus, biceps tendon, upper/mid/low trap Passive ROM all planes x8' (X). 09/21/20 [id number] Provided and reviewed for progression. 09/16/20 [id number] Provided and reviewed for HEP. Provided today: [...] anterior/superior. Insurance Insurance reviewed Visit number: 10 [employer] Evaluating therapist Naveen Estrada PT. M75.41; [...] code time is 43 minutes. Therapeutic exercise (99748): timed minutes 33, units 2 . UBE [...] x10 10? hold (X) . Manual Therapy (14537): timed minutes 10, units 1 . Inf AND Post GH Mobs gr 2-3 loose pack x 2' Passive ROM all planes x8' STW to pec (X). 09/21/20 [id number] Provided and reviewed for progression. 09/16/20 [id number] Provided and reviewed for HEP. Provided today: [...] Signatures Electronically signed by : Shawanda Perez CHIP BIN CONVEYOR TENDER; Sep 30 2020 11:45AM EST (Author) Electronically signed by : Nasreen Hutchins PT; Oct 02 2020 5:56PM EST Normal [...] anterior/superior. Insurance Insurance reviewed Visit number: 9 [employer] Evaluating therapist Naveen Denisvalerie PT. M75.41; M25.511 Subjective Patient reports:. Patient reported 2/10 pain after treatment. Home program performing as directed: Yes. Precautions: Fall Risk: none Pertinent medical HX includes: osteopenia. Treatment Time in clinic started at 09:15 Time in clinic ended at 10:00 Total time in clinic is 45 minutes. Total timed code time is 43 minutes. Therapeutic exercise (12233): timed minutes 33, units 2 . UBE [...] x10 10? hold (X) . Manual Therapy (77767): timed minutes 10, units 1 . Inf AND Post GH Mobs gr 2-3 loose pack x 7' Passive ROM all planes x3' STW to pec (X). 09/21/20 [id number] Provided and reviewed for progression. 09/16/20 [id number] Provided and reviewed for HEP. Provided today: [...] Signatures Electronically signed by : Mary Dyson CHIP BIN CONVEYOR TENDER; Sep 28 2020 10:11AM EST (Author) Electronically signed by : Nasreen Hutchins PT; Sep 28 2020 10:15AM EST Normal [facility] PT Progress Noteon 1 PT Progress [...] code time is 43 minutes. Therapeutic exercise (27335): timed minutes 33, units 2 . UBE [...] x10 10? hold (X) . Manual Therapy (47503): timed minutes 10, units 1 . Inf AND Post GH Mobs gr 2-3 loose pack x 7' Passive ROM all planes x3' STW to pec (X). 09/21/20 [id number] Provided and reviewed for progression. 09/16/20 [id number] Provided and reviewed for HEP. Provided today: [...] Sep 26 2020 1:00PM EST (Author) Normal [employer] PT Progress Noteon 1 PT Progress Note [...] sharp. Insurance Insurance reviewed Visit number: 7 [employer] [facility] Naveen Estrada PT. M75.41; M25.511 [...] code time is 45 minutes. Therapeutic exercise (24006): timed minutes 35, units 2 . UBE [...] (P) -hugs x15 (P) . Manual Therapy (87318): timed minutes 10, units 1 . Passive ROM all planes STW to pec. 09/21/20 [id number] Provided and reviewed for progression. 09/16/20 [id number] Provided and reviewed for HEP. Provided today: education and equipment provided . Reistsed Rows and Extension W/ theraloop and blue band. Seated scap retractions Doorway stretches med/low on R Cane ER in supine Demonstrated and verbalized understanding up exercises upon completion of instruction and review of handout. 'Scores and Scales' Signatures Electronically signed by : Mary Dyson CHIP BIN CONVEYOR TENDER; Sep 23 2020 10:26AM EST (Author) Electronically signed by : Nasreen Hutchins, PT; Sep 28 2020 10:03AM EST Normal [facility] PT Progress Noteon [...] sharp. Insurance Insurance reviewed Visit number: 6 [facility] Evaluating therapist Naveen Estrada PT. M75.41; M25.511 Subjective Patient reports:. Patient reported 2/10 pain after treatment. Home program performing as directed: Yes. Precautions: Fall Risk: none Pertinent medical HX includes: osteopenia. Treatment Time in clinic started at 09:15 Time in clinic ended at 10:00 Total time in clinic is 45 minutes. Total timed code time is 43 minutes. Therapeutic exercise (08494): timed minutes 35, units 2 . UBE 3' fwd, 3? bwd Joya 3' flex Resisted rows 2 x 10 Purple Resisted extension 2 x 10 purple Resisted [place] (P from walk outs) -ER 2x10 -IR 2x10 -flex 2x10 -ext 2x10 Doorway stretch med/low 10 hold x 5 ea direction Cane ER 5 hold x 10 Foam roll -pec stretch 1? -butter fly x15 (P) -snow aroldo x15 (P) -scissors x15 (P) -hugs x15 (P) Nerve glides Median x10 10? hold . Manual Therapy (60098): timed minutes 8, units 1 . Passive ROM all planes 10'. 09/21/20 [id number] Provided and reviewed for progression. 09/16/20 [id number] Provided and reviewed for HEP. Provided today: education and equipment provided . Reistsed Rows and Extension W/ theraloop and blue band. Seated scap retractions Doorway stretches med/low on R Cane ER in supine Demonstrated and verbalized understanding up exercises upon completion of instruction and review of handout. 'Scores and Scales' Signatures Electronically signed by : Mary Dyson CHIP BIN CONVEYOR TENDER; Sep 21 2020 10:20AM EST (Author) Electronically signed by : Nasreen Hutchins PT; Sep 28 2020 10:02AM EST (Author) Normal [facility] PT Progress Noteon 1 PT Progress Note [...] sharp. Insurance Insurance reviewed Visit number: 5 [facility] Evaluating therapist Naveen Estrada PT. M75.41; M25.511 Subjective Patient reports:. 08/21 pain upon arrival to PT today. States [...] code time is 44 minutes. Therapeutic exercise (90944): timed minutes 34, units 2 . UBE 2' fwd/2 bwd' Joya 3' flex Doorway stretch med/low 10 hold x 5 ea direction Cane ER 5 hold x 10 Resisted rows 2 x 10 Purple Resisted extension 2 x 10 purple T-band walk outs [place] -ER x10 2 steps -IR x10 2 steps -flex x10 2 steps -ext x10 2 steps Foam roll -pec stretch 1? -butter fly x10 -snow aroldo x10 -scissors x10 -hugs x10 Nerve glides Median x10 . Manual Therapy (62016): timed minutes 10, units 1 . Passive ROM all planes 10'. 09/16/20 [id number] Provided and reviewed for HEP. Provided today: education and equipment provided . Reistsed Rows and Extension W/ theraloop and blue band. Seated scap retractions Doorway stretches med/low on R Cane ER in supine Demonstrated and verbalized understanding up exercises upon completion of instruction and review of handout. 'Scores and Scales' Signatures Electronically signed by : Shawanda Perez, CHIP BIN CONVEYOR TENDER; Sep 19 2020 12:23PM EST (Author) Electronically signed by : Nasreen Hutchins, PT; Sep 28 2020 10:01AM EST Normal [employer] PT Progress Noteon PT Progress Note Therapy Diagnosis Assessed Impingement syndrome, shoulder, right (726.2) (M75.41) Shoulder pain, right (719.41) (M25.511) Plan Goals: Goals set and discussed today. 1. Independent HEP to allow for 50% reduction in max ADL C/C sx ( 8/10) 2-3wks 2. 0/10 night time sx to allow for uninterrupted sleep x1wk ( /) 2-3wks 3. Survey score improvement from 22% [...] sharp. Insurance Insurance reviewed Visit number: 4 [employer] Evaluating therapist Naveen Estrada PT. M75.41; M25.239 Subjective Patient reports:. Patient reported she was [...] code time is 43 minutes. Therapeutic exercise (41222): timed minutes 32, units 2 . UBE 2' fwd/2 bwd' Joya 3' flex Doorway stretch med/low 10 hold x 5 ea direction Cane ER 5 hold x 10 Resisted rows 2 x 10 (Purple) Resisted extension 2 x 10 purple T-band walk outs [place] (P) -ER x10 2 steps -IR x10 2 steps -flex x10 2 steps -ext x10 2 steps Foam roll (N) -pec stretch 1? -butter fly x10 -snow aroldo x10 -scissors x10 -hugs x10 Nerve glides Median x10 . Manual Therapy (94901): timed minutes 11, units 1 . Passive ROM all planes 10'. 09/16/20 [id number] Provided and reviewed for HEP. Provided today: education and equipment provided . Reistsed Rows and Extension W/ theraloop and blue band. Seated scap retractions Doorway stretches med/low on R Cane ER in supine Demonstrated and verbalized understanding up exercises upon completion of instruction and review of handout. 'Scores and Scales' Signatures Electronically signed by : Mary Dyson CHIP BIN CONVEYOR TENDER; Sep 16 2020 10:31AM EST (Author) Electronically signed by : Nasreen Hutchins, PT; Sep 28 2020 10:01AM EST Normal [employer] PT Progress Noteon PT Progress Note Therapy [...] sharp. Insurance Insurance reviewed Visit number: 3 [employer] [facility] Naveen Estrada PT. M75.41; M25.359 Subjective Patient reports:. Patient reported 1/10 pain after treatment. Home program performing as directed: Yes. Precautions: Fall Risk: none Pertinent medical HX includes: osteopenia. Treatment Time in clinic started at 08:30 Time in clinic ended at 09:15 Total time in clinic is 45 minutes. Total timed code time is 43 minutes. Therapeutic exercise (81218): timed minutes 32, units 2 . UBE [...] handout and review 6' . Manual Therapy (77571): timed minutes 11, units 1 . Passive [...] Signatures Electronically signed by : Mary Dyson CHIP BIN CONVEYOR TENDER; Sep 14 2020 9:29AM EST (Author) Electronically signed by : Nasreen Hutchins PT; Sep 15 2020 10:06AM EST Normal [facility] PT Progress Noteon 1 PT Progress [...] shldr. Insurance Insurance reviewed Visit number: 2 [employer] [...] code time is 42 minutes. Therapeutic exercise (76294): timed minutes 32, units 2 . HEP instruction with new handout and review 6' (N) UBE 2' fwd/2 bwd' (N) Joya 3' flex (N) Doorway stretch med/low 10 hold x 5 ea direction (N) Cane ER 5 hold x 10 (N) Resisted rows 2 x 10 (Purple) (N) Resisted extension 2 x 10 Blue (N) . Manual Therapy (31389): timed minutes , units . Passive ROM all planes 10' (N). Provided today: education and equipment provided . Reistsed Rows and Extension W/ theraloop and blue band. Seated scap retractions Doorway stretches med/low on R Cane ER in supine Demonstrated and verbalized understanding up exercises upon completion of instruction and review of handout. 'Scores and Scales' Signatures Electronically signed by : Shawanda Perez CHIP BIN CONVEYOR TENDER; Sep 09 2020 10:10AM EST (Author) Electronically signed by : Nasreen Hutchins PT; Sep 11 2020 7:27PM EST Normal [employer] PT Initial Evaluationon 08-13 PT Initial Evaluation [...] shldr. Insurance Insurance reviewed Visit number: 1 [employer] Evaluating therapist Naveen Estrada PT. Q59.41; W63.111 Subjective Current Episode of Functional Impairment and/or Pain Date of onset: 9?27/20 Mechanism of Injury:. woke up with sx. [...] P! Denotes Pain with Movement, * Indicates [place] Resistant Otherwise Measurements are in Supine) Flexion: [...] PROM all dir pulleys 2'. Evaluation Code: 40090 PT Eval: Low Complexity, 40 min(s). Timed: 14523 Manual Therapy, 10 min(s), 1 unit(s). Contacts for Physician Signature First attempt date: 09/07/20. Referring Provider Signature: I am in agreement with the above plan of care. Referring Provider Signature __, Date/Time Signatures Electronically signed by : Chase Estrada PT; Sep 07 2020 11:20AM EST (Author) Normal [facility] ECG 12-LEADon 09-22-2019 Atrial Rate [facility] P Ancram [facility] P-R Interval [facility] Q-T Interval [facility] Q-T Interval (corrected) [facility] QRS Duration [facility] QTC Calculation (Bezet) [facility] R Ancram [facility] T Ancram [facility] Ventricular Rate [facility] Alcohol, Medicalon 0 Ethanol [Mass/Vol] mg/dL <10.00 mg/dL [facility] Comment on above: Alcohol cutoff: <10. 00 mg/dL = None Detected Interpretation and review of laboratory results Normal [facility] CBC WITH AUTO DIFFERENTIALon 09-06-2019 Basophils (Bld) [#/Vol] 0.04 10*3/uL [facility] Basophils/100 WBC (Bld) 0.6 % [facility] Eosinophils (Bld) [#/Vol] 0.10 10*3/uL [facility] Eosinophils/100 WBC (Bld) 1.5 % [facility] Erythrocyte distribution width (RBC) [Entitic vol] 13.0 % 11.6 - 14.8 % [facility] Hematocrit (Bld) [Volume fraction] 42.4 % 36 - 46 % [facility] Hemoglobin (Bld) [Mass/Vol] 14.0 g/dL 12 - 16 g/dL [facility] Immature granulocytes (Bld) [#/Vol] 0.02 10*3/uL [facility] Immature granulocytes/100 WBC (Bld) 0.30 % [facility] Comment on above: The IG parameter is the percentage of metamyelocytes, myelocytes, and promyelocytes. Lymphocytes (Bld) [#/Vol] 1.89 10*3/uL [facility] Lymphocytes/100 WBC (Bld) 28.8 % [facility] MCH (RBC) [Entitic mass] 30.1 pg 26 - 34 pg [facility] MCHC (RBC) [Mass/Vol] 33.0 g/dL 31 - 37 g/dL [facility] MCV (RBC) [Entitic vol] 91.2 fL 80 - 100 fL [facility] Monocytes (Bld) [#/Vol] 0.52 10*3/uL [facility] Monocytes/100 WBC (Bld) 7.9 % [facility] Neutrophils (Bld) [#/Vol] 3.99 10*3/uL [facility] Neutrophils/100 WBC (Bld) 60.9 % [facility] Nucleated RBC (Bld) [#/Vol] 0.00 10*3/uL [facility] Nucleated RBC/100 WBC (Bld) [Ratio] 0.0 % [facility] Platelet mean volume (Bld) [Entitic vol] 10.3 fL 9 - 15.5 fL [facility] Platelets (Bld) [#/Vol] 258 10*3/uL [facility] RBC (Bld) [#/Vol] 4.65 10*6/uL [facility] WBC (Bld) [#/Vol] 6.56 10*3/uL [facility] Chem 09-06-2019 Anion gap [Moles/Vol] 13 mmol/L 10 - 2 0 mmol/L [facility] Chloride [Moles/Vol] 104 mmol/L 98 - 10 8 mmol/L [facility] Creatinine [Mass/Vol] 0.80 mg/dL 0.6 - 1.2 mg/dL [facility] GFR/1.73 sq M predicted among non-blacks MDRD (S/P/Bld) [Vol rate/Area] The eGFR should be used for monitoring renal function only and not for medication dosing. [facility] GFR/1.73 sq M.predicted CKD-EPI (S/P/Bld) [Vol rate/Area] 76 >=60 mL/min/1.73 m2 [facility] Glucose [Mass/Vol] 108 mg/dL High 65 - 99 mg/dL [facility] HCO3 [Moles/Vol] 26 mmol/L 21 - 32 mmol/L [facility] Interpretation and review of laboratory results Abnormal [facility] Potassium [Moles/Vol] 3.4 mmol/L Low 3.5 - 5.1 mmol/L [facility] Sodium [Moles/Vol] 140 mmol/L 135 - 145 mmol/L [facility] Urea nitrogen [Mass/Vol] 11 mg/dL 8 - 25 mg/dL [facility] Urea nitrogen/Creatinine [Mass ratio] 13.8 mg/mg [facility] D-DIMER, QUANTITATIVEon 08-13 Fibrin D-dimer FEU (PPP) [Mass/Vol] 0.43 0.27 - 0.49 mcg/mL FEU [facility] Interpretation and review of laboratory results Normal [facility] A D-dimer concentrat ion of <0.5 micrograms per milliliter FEU is considered a low probability for pulmonary embolus (PE) and deep venous thrombosis (DVT). Results of this test should always be interpreted in conjunction with the patient's medical history,clinical presentation, and other findings. Clinical diagnosis should not be based on the results of the D-dimer alone. [facility] DRUGS OF ABUSE SCREEN, URINE on 09-06-2019 Amphetamines Ql (U) None Detected None Detected [facility] Comment on above: Urine Amphetamine Cu toff: < 1000 ng/mL = None Detected Barbiturates Screen Ql (U) None Detected None Detected [facility] Comment on above: Urine Barbiturates C utoff: < 200 ng/mL = None Detected Benzodiazepines Ql (U) None Detected None Detected [facility] Comment on above: Urine Benzodiazepine Cutoff: < 200 ng/mL = None Detected Cannabinoids Screen Ql (U) None Detected None Detected [facility] Comment on above: Urine Cannabinoids C utoff: < 50 ng/mL = None Detected Cocaine Ql (U) None Detected None Detected [facility] Comment on above: Urine Cocaine Cutoff : < 300 ng/mL = None Detected Interpretation and review of laboratory results Normal [facility] Methadone Screen Ql (U) None Detected None Detected [facility] Comment on above: Urine Methadone Cuto ff: < 300 ng/mL = None Detected Opiates Screen Ql (U) None Detected None Detected [facility] Comment on above: Urine Opiates Cutoff : < 300 ng/mL = None Detected Oxycodone Ql (U) None Detected None Detected [facility] Comment on above: Urine Oxycodone Cuto ff: < 100 ng/mL = None Detected Screen results shoul d be used for treatment purposes only. [facility] Hepatic Function Panel (LFT) on 09-06-2019 Albumin [Mass/Vol] 4.1 g/dL 3.2 - 5.2 g/dL [facility] ALP [Catalytic activity/Vol] 82 U/L 40 - 150 U/L [facility] ALT [Catalytic activity/Vol] 22 U/L 14 - 65 U/L [facility] AST [Catalytic activity/Vol] 15 U/L 0 - 45 U/L [facility] Bilirubin [Mass/Vol] 0.4 mg/dL 0 - 1.3 mg/dL [facility] Bilirubin.conjugated [Mass/Vol] mg/dL 0 - 0.4 mg/dL [facility] Protein [Mass/Vol] 7.9 g/dL 6 - 8 g/dL [place] [facility] Lipaseon 09-06-2019 Lipase [Catalytic activity/Vol] 186 U/L 73 - 393 U/L [facility] Other[facility] 09-06-2019 Interpretation and review of laboratory results Normal [facility] TROPONINon 09-06-2019 Troponin I.cardiac [Mass/Vol] Normal [facility] Troponin I.cardiac [Mass/Vol] ng/mL <=45 ng/L [facility] TSH with Reflex Free T4on TSH Qn 0.86 m[IU]/L [facility] URINALYSISon 09-06-2019 Bacteria Auto Ql (U) None Seen None Se en /hpf [facility] Bilirubin Ql (U) Negative Negative [facility] th Clarity Refractometry automated (U) Clear Clear [facility] Color (U) Yellow Colorless, Yellow [facility] Glucose Auto test strip (U) [Mass/Vol] Negative Negative mg/dL [facility] Hemoglobin Auto test strip Ql (U) Negative Negative [facility] Hyaline casts Auto (Urine sed) [#/Area] 3-5 Abnormal 0 - 2 /lpf [facility] Interpretation and review of laboratory results Abnormal [facility] Ketones (U) [Mass/Vol] Negative Negat tiffanie mg/dL [facility] Leukocyte esterase Auto test strip Ql (U) Negative [facility] Mucus Auto (Urine sed) [#/Area] Many Abnormal None Seen, Rare /lpf [facility] Nitrite Auto test strip Ql (U) Negative Negative [facility] pH (U) 5.0 [pH] [facility] Protein (U) [Mass/Vol] Negative Negat tiffanie mg/dL [facility] RBC Auto (Urine sed) [#/Area] <1 [facility] Specific gravity (U) [Rel density] 1.009 [facility] Urobilinogen (U) [Mass/Vol] <2.0 <2.0 mg/dL [facility] WBC Auto (Urine sed) [#/Area] 2 [facility] Microscopic examinat ion is performed on all urinalysis samples and only positive findings are reported. The test for blood on the chemical analytic portion of urinalysis may also be positive due to hemoglobinuria and myoglobinuria and if red blood cells are present they are quantified by microscopic examination. [facility] XR Chest 1 Viewon 09-06-2019 Interface, [...] No acute findings. DPR/mjr Workstation ID: [id number] [facility] 1. No acute findings . DPR/mjr Workstation ID: [id number] [facility] EXAMINATION: XR CHES T PA/AP 09/06/2019 [...] normal and the osseous structures appear intact. [facility] Mamm Screen w/CAD if perf ormed bilaton 04-16-2019 [place] Mamm Screen w/CAD if performed bilat Exam Date/Time: 04/16/2019 09:16 EDT Reason for Exam: SCREENING Report STUDY: Digital mammography screening; 04/16/2019 9:16 am ACCESSION NUMBER(S): [id number] ORDERING CLINICIAN: Dipak Seth INDICATION: Screening. COMPARISON: [...] pm Signed by: Jose Patterson MD Technologist: ROBBIN Assessment: BI-RADS Category 1-Negative Recommendation: Normal interval follow-up Normal [facility] US Extremity Non-Vascular Ri javier 03-06-2019 [place] Extremity Non-Vascular Right Exam Date/Time: 03/05/2019 15:20 EDT Reason for Exam: RIGHT AXILLAY LYMPHADENOPATHY Report STUDY: US Extremity Non-Vascular Right; 03/05/2019 3:20 pm INDICATION: RIGHT AXILLARY LYMPHADENOPATHY. COMPARISON: None. ACCESSION NUMBER(S): [id number] ORDERING CLINICIAN: Ernestina Ayoub TECHNIQUE: Multiple grayscale [...] Signed by: Jose Patterson MD Technologist: ESTEBAN Normal [facility] XR Wrist 3+ Views Righton XR Wrist 3+ Views Right Exam Date/Time: 11/25/2018 09:49 EDT Reason for Exam: right wrist pain Report STUDY: XR Wrist 3+ Views Right; 11/25/2018 9:49 am INDICATION: right wrist pain. COMPARISON: None. ACCESSION NUMBER(S): [id number] ORDERING CLINICIAN: Dipak Seth FINDINGS: There is no acute fracture or dislocation. The carpal bones are normal alignment. There is normal bony mineralization. There is no soft tissue swelling or joint effusion. IMPRESSION: No acute fracture. FINAL REPORT Dictated: 11/26/2018 11:46 am Jaylon Mercer MD Signed (Electronic Signature): 11/26/2018 11:46 am Signed by: Jaylon Mercer MD Technologist: STANISLAW [facility] Vital Signs Date Time Vital Sign Value Performing Clinician Facility 12-03-2024 14:37-0400 Body height 160 cm Isabella Dixon MD Work Phone: [facility] 12-03-2024 14:37-0400 Body mass index (BMI) [Ratio] 24.53 kg/m2 Isabella Dixon MD Work Phone: [facility] 12-03-2024 14:37-0400 Body weight 62.82 kg Isabella Dixon MD Work Phone: [facility] 12-03-2024 14:37-0400 Diastolic blood pressure 65 mm[Hg] Isabella Dixon MD Work Phone: [facility] 12-03-2024 14:37-0400 Heart rate 69 /min Isabella Dixon MD Work Phone: [facility] 12-03-2024 14:37-0400 SaO2% (BldA) [Mass fraction] 97 % Isabella Dixon MD Work Phone: [facility] 12-03-2024 14:37-0400 Systolic blood pressure 129 mm[Hg] Isabella Dixon MD Work Phone: [facility] 07-31-2024 14:03-0500 Diastolic blood pressure 69 mm[Hg] Jason Vidales MD Work Phone: [facility] 07-31-2024 14:03-0500 Heart rate 57 /min Jason Vidales MD Work Phone: [facility] 07-31-2024 14:03-0500 SaO2% (BldA) [Mass fraction] 96 % Jason Vidales MD Work Phone: [facility] 07-31-2024 14:03-0500 Systolic blood pressure 119 mm[Hg] Jason Vidales MD Work Phone: [facility] 07-31-2024 11:55-0500 Body temperature 97.9 [degF] Jason Vidales MD Work Phone: [facility] 07-31-2024 11:55-0500 Respiratory rate 16 /min Jason Vidales MD Work Phone: [facility] 07-30-2024 18:29-0500 Body height 160 cm Jason Vidales MD Work Phone: [facility] 07-30-2024 18:29-0500 Body mass index (BMI) [Ratio] 24.45 kg/m2 Jason Vidales MD Work Phone: [facility] 07-30-2024 18:29-0500 Body weight 62.6 kg Jason Vidales MD Work Phone: [facility] 01-24-2022 10:08-0400 Body height 160 cm Dipak Seth Other Phone: [facility] 01-24-2022 10:08-0400 Body temperature 97.88 [degF] Dipak Seth Other Phone: [facility] 01-24-2022 10:08-0400 Diastolic blood pressure 61 mm[Hg] Dipak Seth Other Phone: [facility] 01-24-2022 10:08-0400 Heart rate 73 /min Dipak Seth Other Phone: [facility] 01-24-2022 10:08-0400 Respiratory rate 16 /min Dipak Seth Other Phone: [facility] 01-24-2022 10:08-0400 SaO2% (BldA) [Mass fraction] 98 % Dipak Seth Other Phone: [facility] 01-24-2022 10:08-0400 Systolic blood pressure 117 mm[Hg] Dipak Seth Other Phone: [facility] 10-28-2021 10:40-0400 Body height 160 cm Dipak Lindaphilippe Other Phone: [facility] 10-28-2021 10:40-0400 Body temperature 98.78 [degF] Dipak Mckeonk Other Phone: [facility] 10-28-2021 10:40-0400 Diastolic blood pressure 71 mm[Hg] Dipak Seth Other Phone: [facility] 10-28-2021 10:40-0400 Heart rate 84 /min Dipak Seth Other Phone: [facility] 10-28-2021 10:40-0400 Respiratory rate 16 /min Dipak Seth Other Phone: [facility] 10-28-2021 10:40-0400 SaO2% (BldA) [Mass fraction] 96 % Dipak Seth Other Phone: [facility] 10-28-2021 10:40-0400 Systolic blood pressure 108 mm[Hg] Dipak Seth Other Phone: [facility] 06-08-2021 13:46-0400 Body height 160 cm Dipak Seth Other Phone: [facility] 06-08-2021 13:46-0400 Body temperature 98.06 [degF] Dipak Seth Other Phone: [facility] 06-08-2021 13:46-0400 Diastolic blood pressure 71 mm[Hg] Dipak Seth Other Phone: [facility] 06-08-2021 13:46-0400 Heart rate 75 /min Dipak Seth Other Phone: [facility] 06-08-2021 13:46-0400 Respiratory rate 14 /min Dipak Seth Other Phone: [facility] 06-08-2021 13:46-0400 SaO2% (BldA) [Mass fraction] 98 % Dipak Lindaphilippe Other Phone: [facility] 06-08-2021 13:46-0400 Systolic blood pressure 129 mm[Hg] Dipak Seth Other Phone: [facility] 09-22-2019 08:57-0500 BMI (Body Mass Index) 23.72 kg/m2 Kimo Aikenhmy [facility] 09-22-2019 08:57-0500 Body weight 60.74 kg Kimo Aikenhmy [facility] 09-22-2019 08:57-0500 BP Diastolic 66 mm[Hg] Kimo Pedro [facility] 09-22-2019 08:57-0500 BP Systolic 106 mm[Hg] Kimo Pedro [facility] 09-22-2019 08:57-0500 Height 160 cm Kimo [facility] 09-22-2019 08:57-0500 Pulse (Heart Rate) 70 /min Kimo [facility] 09-22-2019 08:57-0500 Pulse [facility]xim[facility] 96 % [facility] 19:00-0500 BP Diastolic 60 mm[Hg] [facility] 09-06-2019 19:00-0500 BP Systolic 129 mm[Hg] [facility] 09-06-2019 19:00-0500 Pulse (Heart Rate) 73 /min [facility] 09-06-2019 19:00-0500 Pulse Oximetry 98 % [facility] 09-06-2019 16:51-0500 BMI (Body Mass Index) 23.56 kg/m2 [facility] 09-06-2019 16:51-0500 Body Temperature 97.59 [degF] [facility] 09-06-2019 16:51-0500 Body weight 60.33 kg [facility] 09-06-2019 16:51-0500 Height 160 cm [facility] 09-06-2019 16:51-0500 Respiratory Rate 16 /min [facility] Encounters Encounter Date Encounter Type Care Provider Facility Start: 03-10-2025 End: 03-10-2025 ambulatory Trang Carr MD Work Phone: -Cat Scan [facility] Start: 03-10-2025 End: 03-10-[address] Trang Carr MD -Cat Scan [facility] Work Phone: Start: 03-10-2025 End: 03-10-2025 ambulatory Trang Carr Facility:[facility] Start: 02-10-2025 End: 02-10-2025 ambulatory Trang Carr MD Work Phone: [facility] Start: 02-10-2025 End: 02-10-[address] Trang Carr MD [facility] Work Phone: Start: 02-10-2025 End: 02-10-2025 ambulatory Trang Carr Facility:[facility] Start: 01-25-2025 End: 01-25-2025 Follow-up encounter Isabella Dixon MD Work Phone: [facility] Comment on above: Ambulatory ECG Event Monitor Start: 01-19-2025 End: 01-19-2025 ambulatory Trang Carr MD Work Phone: [facility] Work Phone: Start: 01-19-2025 End: 01-19-[address] Trang Carr MD -Laboratory [facility] Start: 01-19-2025 End: 01-19-2025 ambulatory Trang Lilly Facility:[facility] Start: 01-18-2025 Encounter for other specified special examinations Trang Carr [facility] Start: 01-13-2025 End: 01-13-2025 ambulatory Trang Carr MD Work Phone: [facility] Work Phone: Start: 01-13-2025 End: 01-13-[address] Trang Carr MD -Outpatient [facility] Work Phone: Start: 01-12-2025 End: 01-12-2025 Patient encounter procedure Molly Kirby OD Work Phone: Optometry Comment on above: Myopia of both eyes (Primary Dx); Regular astigmatism of both eyes; Presbyopia Start: 01-12-2025 End: 01-13-2025 ambulatory MOLLY KIRBY Facility:[facility] Start: 12-04-2024 End: 12-04-[address] Pb Corrales MD -Laboratory Specimen Work Phone: Start: 12-04-2024 End: 12-04-2024 Refill Kit Wright MA [facility] Comment on above: Medication Refill Start: 12-03-2024 End: 12-03-2024 Office outpatient new 45 minutes Darby Velasco [employer] Work Phone: [facility] Comment on above: Palpitations (Primar y Dx); Chest pain, unspecified type Start: 12-03-2024 End: 12-04-2024 Refill Nita Null RN [facility] Comment on above: Medication Refill Start: 11-28-2024 End: 11-28-2024 Emergency department patient visit [facility] Start: 11-24-2024 End: 11-24-2024 ambulatory Trang Carr MD Work Phone: [facility] Work Phone: Start: 11-24-2024 End: 11-24-2024 Patient encounter procedure Aroldo Cespedes NP-C -Laboratory, [facility] Start: 11-24-2024 End: 11-24-2024 ambulatory Trang Carr Facility:[facility] Start: 07-30-2024 End: 07-31-2024 Emergency department patient visit Yisel Josue MD Work Phone: [facility] Start: 07-30-2024 End: 07-31-2024 ambulatory JERE AJ [facility] Start: 06-19-2024 End: 06-19-2024 ambulatory Trang Carr Facility:[facility] Start: 06-11-2024 End: 06-11-2024 ambulatory Chalon Lilly Facility:[facility] Start: 05-07-2024 End: 05-11-2024 [facility] Start: 04-08-2024 End: 04-08-2024 ambulatory Chalon Lilly Facility:[facility] Start: 04-01-2024 End: 04-01-2024 [facility] Start: 03-23-2024 End: 03-23-2024 ambulatory MOLLY KIRBY Facility:[facility] Start: 03-23-2024 End: 03-23-2024 Patient encounter procedure Molly T Alvin OD Work Phone: Optometry Comment on above: Dry eyes (Primary Dx ) Start: 01-20-2024 End: 01-20-2024 ambulatory MOLLY KIRBY Facility:[facility] Start: 01-20-2024 End: 01-20-2024 Patient encounter procedure Molly T Alvin OD Work Phone: Optometry Comment on above: 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 Dipak Seth Facility:[id number] Start: 01-24-[address] Dipak Seth Facility:[id number] Start: 01-24-2022 End: 01-24-2022 Emergency department patient visit Lucinda Vizcarra [facility] 01 Start: 10-28-2021 End: 10-28-2021 Emergency department patient visit Lucinda Vizcarra [facility] 01 Start: 06-08-2021 End: 06-08-2021 Emergency department patient visit Lucinda Vizcarra [facility] Start: 10-31-2020 Patient encounter procedure [facility] [place] Work Phone: Start: 10-26-2020 [facility] [place] Work Phone: Start: 10-19-2020 [facility] [place] Work Phone: Start: 10-14-2020 [facility] [place] Work Phone: Start: 10-05-2020 [facility] [place] Work Phone: Start: 10-03-2020 Patient encounter procedure Nasreen [facility] [place] Work Phone: Start: 09-30-2020 [facility] [place] Work Phone: Start: 09-28-2020 [facility] [place] Work Phone: Start: 09-26-2020 [facility] [place] Work Phone: Start: 09-23-2020 Patient encounter procedure Nasreen [facility] [place] Work Phone: Start: 09-21-2020 Patient encounter procedure Nasreen [facility] [place] Work Phone: Start: 09-19-2020 Patient encounter procedure Nasreen [facility] [place] Work Phone: Start: 09-16-2020 Patient encounter procedure Nasreen [facility] [place] Work Phone: Start: 09-14-2020 Patient encounter procedure Nasreen [facility] [place] Work Phone: Start: 09-09-2020 Patient encounter procedure Nasreen [facility] [place] Work Phone: Start: 09-07-2020 Patient encounter procedure Nasreen [facility] [place] Work Phone: Start: 09-22-2019 End: 09-22-2019 Office outpatient new 45 minutes Yisel Josue Work Phone: [facility] Comment on above: Cardiac arrhythmia, unspecified cardiac arrhythmia type (Primary Dx); Palpitations; Chest discomfort Start: 09-11-2019 End: 09-11-2019 Subsequent hospital visit by physician Dipak Seth Work Phone: [facility] Comment on above: Tachycardia Start: 09-06-2019 End: 09-06-2019 Emergency department patient visit Yisel Josue Work Phone: [facility] Comment on above: Palpitations (Primar y Dx); Hypokalemia Procedures Date Procedure Procedure Detail Performing Clinician Start: 03-10-2025 CT of soft tissues o f neck with contrast Trang Carr MD Work Phone: Start: 02-10-2025 MRI of orbit, face a nd neck with contrast Trang Carr MD Work Phone: Start: 01-19-2025 JUJU measurement Trang Carr MD Work Phone: Comment on above: Performed at: [address] [id number] Director: Sergio Tovar PhD, Phone: [phone] at: [employer] [id number] Director: Amaya Ingram MD, Phone: [phone] Start: 01-19-2025 Antibody to lupus La protein measurement Trang Carr MD Work Phone: Start: 01-19-2025 Antibody to SS-A measurement Trang Carr MD Work Phone: Start: 01-19-2025 Laboratory data interpretation Trang Carr MD Work Phone: Comment on above: No lupus anticoagula nt was detected.Performed at: [email or web address] [id number] Director: Amaya Ingram MD, Phone: [phone] Start: 01-19-2025 Lupus anticoagulant assay, platelet neutralization [...] Phone: Comment on above: EBV Interpretation C enriqueKey: Antibody Present + Antibody Absent -Interpretation VCA-IgM [...] EBV never develop antibodies to EBNA.Performed at: [facility] [id number] Director: Sergio Tovar PhD, Phone: [phone] Start: 01-13-2025 Immunoglobulin M measurement Trang Carr [...] in 7 to 14 days isrecommended.Performed at: [facility] [id number] Director: Sergio Tovar PhD, Phone: [phone] Start: 01-13-2025 Screening mammography C livan Carr MD Work Phone: Start: 12-04-2024 Bacteria identification test Trang Carr MD Work Phone: Start: 07-31-2024 Cta hrt cornry art/b ypass grfts contrst 3d post Darby Velasco [employer] Work Phone: Start: 07-31-2024 Lipid 1996 panel - S mary lou or Plasma Molly Kirby OD Work Phone: Start: 07-31-2024 Assay of troponin quantitative Abebe Lincoln [employer] Work Phone: Start: 07-31-2024 Lipid panel Darby Vleasco [facility] Work Phone: Start: 07-30-2024 Assay of troponin quantitative Abebe Lincoln [facility] Work Phone: Start: 07-30-2024 Electrocardiogram Yisel Josue [...] Start: 10-02-2033 Tetanus vaccination Tetanus: Every 10yrs [facility] Start: 10-02-2033 Urine microalbumin profile DTaP,Tdap,Td Vaccine (2 - Td or Tdap) [facility] Start: 07-31-2029 Lipid panel Lipid Screening [facility] Start: 11-29-2027 Diabetes Screening Diabetes Screening [facility] Start: 02-22-2026 Diabetes Screening Diabetes Screening [facility] Start: 04-12-2025 Influenza vaccination Influenza Vaccine (Season Ended) [facility] Start: 01-13-2025 Serum immunofixation [facility] Start: 08-12-2024 Advance Directive Discussion Advance Directive Discussion [facility] Start: 04-12-2024 COVID-19 Vaccine ( season) COVID-19 Vaccine ( season) [facility] Start: 04-12-2024 Influenza vaccination [facility] Start: 01-02-2024 Covid-19 Vaccine ( season) Covid-19 Vaccine ( season) [facility] Start: 12-13-2023 Screening for malignant neoplasm of breast [facility] Start: 08-12-2023 Advance Directive Discussion Advance Directive Discussion [facility] Start: 08-12-2023 Behavioral Health Screening Behavioral Health Screening [facility] Start: 08-12-2022 ADVANCE DIRECTIVE DISCUSSION ADVANCE DIRECTIVE DISCUSSION [facility] Start: 08-12-2022 DEPRESSION ASSESSMENT DEPRESSION ASSESSMENT [facility] Start: 05-17-2021 Pneumococcal Vaccine: 50+ (2 of 2 - PPSV23) Pneumococcal Vaccine: 50+ (2 of 2 - PPSV23) [facility] Start: 05-17-2021 Pneumococcal Vaccine: 65+ (2 of 2 - PPSV23 or PCV20) Pneumococcal Vaccine: 65+ (2 of 2 - PPSV23 or PCV20) [facility] Start: 07-12-2020 Pneumococcal Vaccine: Age 50+ (2 of 2 - PPSV23) Pneumococcal Vaccine: Age 50+ (2 of 2 - PPSV23) [facility] Start: 07-12-2020 Pneumococcal Vaccine: Age 50+ (2 of 2 - PPSV23, PCV20, or PCV21) Pneumococcal Vaccine: Age 50+ (2 of 2 - PPSV23, PCV20, or PCV21) [facility] Start: 09-22-2019 End: 09-22-2019 Office Visit 09/22/2019 Office Visit Cardiology Yisel Josue MD [address] [place] [address] [phone] Kimo Vasquez MD [address] [place] [address] [phone] [facility] Start: 04-12-2019 Influenza vaccination given SEQUENTIAL INFLUENZA VACCINE (#1) [facility] Start: 02-18-2016 Screening mammography Mammogram [facility] Start: 12-03-2015 BONE DENSITY BONE DENSITY [facility] Start: 12-03-2015 Fall risk assessment Falls Risk Assessment [facility] Start: 12-03-2015 Pneumococcal vaccination PNEUMOCOCCAL VACCINE AGE 65+ (1 of 2 - PCV13) [facility] Start: 12-03-2015 PNEUMOCOCCAL: 65+ (1 - PCV) PNEUMOCOCCAL: 65+ (1 - PCV) [facility] Start: 12-03-2015 Screening for osteoporosis Bone Density Screening [facility] Start: 2010 Respiratory Syncytial Virus Immunization: Risk, 60-74 Risk, or 75+ (1 - Risk 60-74 years 1-dose series) Respiratory Syncytial Virus Immunization: Risk, 60-74 Risk, or 75+ (1 - Risk 60-74 years 1-dose series) [facility] Start: 2000 Administration of herpes zoster vaccine Zoster Vaccines (1 of 2) [facility] Start: 2000 Screening for malignant neoplasm of colon Flexible sigmoidoscopy [facility] Start: 2000 SHINGRIX VACCINE (1 of 2) SHINGRIX VACCINE (1 of 2) [facility] Start: 12-03-1995 COLOGUARD (FIT-DNA) COLOGUARD (FIT-DNA) [facility] Start: 12-03-1995 Colonoscopy COLONOSCOPY [facility] Start: 12-03-1995 COLORECTAL CANCER SCREENING COLORECTAL CANCER SCREENING [facility] Start: 12-03-[address] COLONOGRAPHY [facility] Start: 12-03-1995 DIABETES SCREEN DIABETES SCREEN [facility] Start: 12-03-1995 FECAL OCCULT BLOOD FECAL OCCULT BLOOD [facility] Start: 12-03-1995 Lipid panel Lipid Screening [facility] Start: 12-03-1995 LIPID SCREEN LIPID SCREEN [facility] Start: 12-03-1995 Screening for malignant neoplasm of colon [facility] Start: 12-03-1995 SIGMOIDOSCOPY SIGMOIDOSCOPY [facility] Start: 1990 Mammography MAMMOGRAM [facility] Start: 1969 Urine microalbumin profile DTAP,TDAP,TD (1 - Tdap) [facility] Start: 1968 Anxiety Screening Anxiety Screening [facility] Start: 1968 Depression Screening Depression Screening [facility] Start: 1968 HEPATITIS C SCREENING HEPATITIS C SCREENING [facility] Start: 1968 Hepatitis C screening Hepatitis C Screening [facility] Start: 1962 Depression screening using PHQ-9 (Patient Health Questionnaire 9) score Depression Screening/Follow-Up (PHQ-2/9) [facility] Start: 1953 History and physical examination, annual for health maintenance Wellness Visit [facility] Start: 1953 Medicare Wellness Visit Medicare Wellness Visit [facility] Start: 1950 Fall risk assessment Falls Risk Assessment [facility] Start: 1950 Hepatitis C antibody, confirmatory test HEPATITIS C SCREENING [facility] Start: 1950 Screening for malignant neoplasm of colon [facility] Start: 1950 Screening for osteoporosis Dexa Scan [facility] Start: 1950 Screening mammography Mammogram [facility] Start: 1950 Tetanus vaccination TETANUS EVERY 10 YR [facility] End: 09-11-2019 48 hour ambulatory electrocardiographic monitoring Holter monitor - 48 hour Cardiac Services Routine Tachycardia Once for 1 Occurrences starting 09/11/2019 until 09/11/2019 [facility] Comment on above: Once for 1 Occurrences starting 09/11/19 20 until 09/11/2019 Ambulatory ECG Event Monitor Amb ulatory ECG Event Monitor Cardiac Services Routine Chest pain, unspecified type Palpitations Ordered: 12/03/2024 [facility] Work Phone: Comment on above: Ordered: 12/03/2024 CTA Heart and [place] ry arteries WO and W contrast IV CT CCTA Heart With And Without Contrast Imaging Routine 07/31/2024 10:30 AM EST [facility] Work Phone: Aquilino Welch virus c apsid IgG Ab [Units/volume] in Serum [facility] Aquilino Welch virus c apsid IgM Ab [Units/volume] in Serum [facility] Aquilino Welch virus n uclear IgG Ab [Units/volume] in Cerebral spinal fluid [facility] Aquilino-Welch virus s erologic test [facility] IgA [Mass/volume] in Serum or Plasma [facility] IgG [Mass/volume] in Serum or Plasma [facility] IgM [Mass/volume] in Serum or Plasma [facility] Immunizations Immunization Date Immunization Notes Care Provider Attila moe 05-31-2022 influenza virus vaccine, unspecified formulation Molly Kirby OD Work Phone: [facility] Payers Date Payer Category Payer Self-pay 2021 Medicare AETNA MEDICARE A ETNA MEDICARE PPO [id number] 2021-Present [phone] [address] [place] [address] PPO [id number] 2020 Private Health Insurance [employer] [address] [place] [address] [id number] 2020 Unknown [id number] 2019 Medicare AETNA MANAGED IN DICARE AETNA MEDICARE PLAN (PPO) xxxxxxxx 2019-Present [id number] 2019 Medicare PPO AETNA MEDICARE P LIN (PPO) [id number] 2015 Private Health Insurance [id number] 2015 Unknown AETNA\AETNA BEATRIZ MACIAS 1950 Unknown [id number] 2..840.1.628251.3.579.2. 1068 1950 Unknown [id number] 2.840.1.271997.3.579.2. 1068 1950 Unknown [id number] 2.0.1.633016.3.579.2. 1068 1950 Unknown [id number] 2.16.840.1.548468.3.579.2. 1069 1950 Unknown [id number] 2.16.840.1.937182.3.579.2. 1069 1950 Unknown [id number] 2.16.840.1.622142.3.579.2. 902 1950 Unknown [id number] 2.840.1.871951.3.579.2. 903 1950 Unknown [id number] 2.840.1.828196.3.579.2. 903 1950 Unknown [id number] 2.840.1.074953.3.579.2. 903 Unknown [id number] 2.840.1.644806.3.579.2. 462 Unknown [id number] 2.840.1.439504.3.579.2. 462 Unknown [id number] 2.840.1.674717.3.579.2. 462 Unknown [id number] 2.840.1.644426.3.579.2. 462 Unknown [id number] 2.16840.1.336412.3.579.2. 462 Unknown [id number] 2.840.1.467805.3.579.2. 462 Unknown [id number] 2.840.1.388624.3.579.2. 462 Unknown [id number] 2.16840.1.837948.3.579.2. 462 Unknown [id number] 2.16840.1.908563.3.579.2. 462 Unknown [id number] 2.16840.1.624168.3.579.2. 462 Unknown [id number] 2.16840.1.222550.3.579.2. 462 Unknown [id number] 2.840.1.650622.3.579.2. 462 Social History Date Type Detail Facility Start: 09-08-2014 End: 09-06-2019 Tobacco smoking status NHIS Never smoker [facility] Start: 09-06-2019 End: 12-03-2024 Alcohol intake Current drinker of alcohol (finding) [facility] Start: 09-06-2019 Alcohol Comment social [facility] Start: 1950 Sex Assigned At Not on file [facility] Tobacco smoking consumption unknown [facility] Start: 09-08-2014 End: 09-06-2019 Tobacco use and exposure Smokeless tobacco non-user [facility] Start: 07-13-2021 End: 01-12-2025 Alcohol intake Ex-drinker (finding) [facility] Start: 07-13-2021 End: 07-30-2024 Alcohol intake [facility] Start: 09-08-2014 Alcohol Comment Occassionally [facility] Start: 1950 Sex Assigned At Female [facility] Start: 05-25-2021 End: 07-30-2024 Tobacco use panel [facility] National Score (1-10 0), lower number is lower risk Not on file [facility] Has the [employer], [employer], oil, or water company threatened to shut off services in your home in past 12Mo No [facility] (I/We) worried wheth er (my/our) food would run out before (I/we) got money to buy more. Never true [facility] Start: 09-11-2019 Gender identity Identifies as female gender (finding) [facility] Start: 09-11-2019 Sexual orientation Heterosexual (finding) [facility] Start: 11-05-2024 End: 11-30-2024 Sex Female (finding) [facility] Functional Status Date Assessment Result Facility NEGATED: Highlighted row Functional performance Functional status health issues are not documented [facility] Work Phone: Mental Status Date Assessment Result Facility NEGATED: Highlighted row Cognitive function [Interpretation] Cognitive status health issues are not documented [facility] Work Phone: Clinical Notes 10-04-2022 to 03-11-2025 Telephone Encounter - Nita Null RN - 01/26/2025 3:40 PM EDTTelephone Encounter - Nita Null RN - 01/26/2025 3:40 PM EDTTelephone Encounter - Nita Null RN - 01/25/2025 2:58 PM EDT Note Date & Type Note Facility 03-11-2025 Radiology Diagnostic study note [facility] Imaging Services [address] [place] [address] Soft Tissue Neck WITH Contrast MR#: [id number] Acct: [id number] Name: CHINMAY GRIMALDO Rep #: [id number] : 1950 F 74 From: Paolo Ibarra MD PCP: Dr. Trang Carr MD Status: REG CL I Study:Soft Tissue Neck WITH Contrast Date of Exam: 03/10/25 Exam# [id number] Ordering Dr: Jeannine Carr MD PROCEDURE: SOFT TISSUE NECK WITH CONTRAST 03/10/2025 REASON FOR EXAM: PAIN IN JAW THAT RADIATES TO EARS, NECK, AND EYES TECHNIQUE: SOFT TISSUE NECK WITH CONTRAST CONTRAST: Isovue 370 VOLUME: 75 mL One or more dose reduction techniques were used (e.g., Automated exposure control, adjustment of the mA and/or kV according to patient size, use of iterative reconstruction technique). RADIATION DOSE SUMMARY: CTDlvol: 11.25 mGy DLP: 337.2 mGycm COMPARISON: Prior MRI of the neck dated February 11, 2025. FINDINGS: Airway: Midline and patent. Salivary glands: Unremarkable. Lymph nodes: No cervical lymphadenopathy. Thyroid: Unremarkable. Vasculature: Carotid arteries and internal jugular veins are unremarkable. Orbits: Unremarkable at visualized levels. Paranasal sinuses and mastoids: Grossly clear at visualized levels. Lung apices: Clear. Upper mediastinum: 2 Bones: Multilevel degenerative changes of the spine. Other: CT/Soft Tissue Neck WITH Contrast IMPRESSION: No acute abnormality is seen. Reading Location: [id number] CC: Dr. Trang Carr MD; Dr. Pb Corrales MD ~ Ag Service Manager: Signed [facility] 01-26-2025 Telephone encounter Note Reviewed monitor results with pt per Dr. Dixon. Pt expressed appreciation and understanding and denies any further questions at this time. [facility] 01-26-2025 Miscellaneous Notes Reviewed monitor results with pt per Dr. Dixon. Pt expressed appreciation and understanding and denies any further questions at this time. Left a voicemail for pt to discuss test results. Asked that she call back. ----- Message from Day sent at 01/25/2025 2:39 PM EDT ----- Great news, monitor shows no atrial fibrillation and very low burden of PVCs. Everything that she triggered was normal sinus rhythm or rare PVCs or PACs which are nothing to worry about ----- Message ----- From: Background, Pacemate Sent: 01/25/2025 7:42 AM EDT To: Isabella Dixon MD documented in this encounter [facility] 01-25-2025 Telephone encounter Note Left a voicemail for pt to discuss test results. Asked that she call back. [facility] 01-25-2025 Telephone encounter Note ----- Message from Day sent at 01/25/2025 2:39 PM EDT ----- Great news, monitor shows no atrial fibrillation and very low burden of PVCs. Everything that she triggered was normal sinus rhythm or rare PVCs or PACs which are nothing to worry about ----- Message ----- From: Background, Pacemate Sent: 01/25/2025 7:42 AM EDT To: Isabella Dixon MD [facility] 01-25-2025 Miscellaneous Notes Left a voicemail [...] Isabella Dixon MD documented in this encounter [facility] 01-12-2025 Instructions Molly Kirby OD - 01/12/2025 3:10 PM EDT ASSESSMENT/PLAN: 1. Myopia of both eyes - ICD9: 367.1, ICD10: H52.13 (primary diagnosis) 2. Regular astigmatism of both eyes - ICD9: 367.21, ICD10: H52.223 3. Presbyopia - ICD9: 367.4, ICD10: H52.4 Continue to wear her glasses with the update. Continue to monitor her ocular health Recommended yearly exams. documented in this encounter [facility] 01-12-2025 Note HNO ID: [id number] Author: MOLLY KIRBY OD Service: ? Author Type: WEATHER OBSERVER Type: Progress Notes Filed: 01/12/2025 15:10 Note [...] neuro exam findings as obtained by others. [facility] 01-12-2025 History of Present illness Narrative [...] obtained by others. documented in this encounter [facility] 12-04-2024 Telephone encounter Note Error. [facility] 12-04-2024 Miscellaneous Notes Error. documented in this encounter [facility] 12-03-2024 Instructions Nita Null RN - 12/03/2024 2:42 PM EDT Images from the original note were not included. How to Contact your Care Team: Provider: Dr. Isabella Dixon MD Clinic Nurse: BRIANNE [facility] MA: RAHUL Pantoja REFILLS: When in need for refills please call your care team or the office at [phone]. Please include medication name, pharmacy name, and [...] we will call with results and plan [facility] Heart [facility] Vascular Holter Department RAHUL Graham [phone] [employer] ([employer]IS) [phone] IMPORTANT! [employer] will be calling you from an [phone] number. You MUST answer this phone call and verify your address with the company, otherwise the monitor WILL NOT be mailed to you. If you do not receive a call from them within the week, feel free to reach out to them to verify your address. MONITOR END DATE: 30 days after placement *If you need help putting your monitor on, please call [phone] to schedule a nurse visit to go over instructions and device placement. Monitor Essentials 1. The device is waterproof. Showers are OKAY. Make sure you shave chest hair and clean and dry the skin before placing the monitor on your chest. 2. The monitor battery typically lasts 3-5 days, after this timeframe it will need to be charged. The bridal sales consultant is included in the box. 3. Extra patches are inside of the box. Sensitivity patches will need to be mailed by [employer] if needed. If you are wearing the monitor for 30 days, I suggest calling [employer] and requesting extra patches to be mailed to you once you leave the office so you receive them before you run out. [phone] 4. Please DO NOT return the device to [facility] after the study has been completed. It will be the patient's responsibility to return the device to [facility]. 5. After the device is mailed, it will take 2-3 weeks for your results to be returned to you. It is the ordering provider s nurse responsibility to call you with the results. [employer] Drop Off Box Locations Number for [employer]: [id number] [facility] STORE [address] [place], [address] [address] [place], [address] [facility], [place], [address] [facility] [id number] [place], [address] [facility] [address] [place], [address] [facility] [address] [address] [place], [address] [facility] [address] [place], [address] [facility] [address] [place], [address] [employer] [address] [facility], [place], [address] [facility] [address] [facility], [place], [address] [facility] [address] [place] [address] [employer] [address] [place], [address] [facility] [address] [place], [address] [address] [place], [address] [facility] STORE # [address] [place], [address] [facility] [address] [place], [address] documented in this encounter [facility] 12-03-2024 History of Present illness Narrative General Cardiology New Patient Clinic Consult [facility] Physician Group, Heart & Vascular 12/03/2024 Isabella Dixon MD [address] [place] [address], 3rd Floor Medical Office Building [facility] [address] Patient: Chinmay Grimaldo Date of : [...] or fail to improve. Isabella Dixon MD, [facility] Non-Invasive Cardiology [facility] Physician Group P:[phone] F:[phone] History of Present Illness: Chinmay Grimaldo is [...] Image Quality: Good, No significant artifacts. Scanner: [employer] DLP 123.07 mGy 72 cc Isovue-370. [...] tablet, Rfl: 0 documented in this encounter [facility] 12-03-2024 Note General Cardiology N ew Patient Clinic Consult [facility] Physician Group, Heart & Vascular 12/03/2024 Isabella Dixon MD [address] [place] [address], 3rd Floor Medical Office [facility] [address] Patient: Chinmay Grimaldo Date of : [...] or fail to improve. Isabella Dixon MD, [facility] Non-Invasive Cardiology [facility] Physician Group P:[phone] F:[phone] ------ History of Present Illness: Chinmay Grimaldo [...] Image Quality: Good, No significant artifacts. Scanner: [employer] DLP 123.07 mGy 72 cc Isovue-370. 0.4mg [...] plaque (more content not included)... [facility] 07-31-2024 Progress note Formatting of t his note might be different from the original. Patient alert and oriented at time of discharge. After visit summary provided. Patient acknowledges understanding of discharge teaching with teach back. [facility] 07-31-2024 Miscellaneous Notes Patient alert and [...] Outcome: Partially Met documented in this encounter [facility] 07-31-2024 Note HMS DISCHARGE [facility] Chinmay Grimaldo Admitted: 07/30/2024 Discharge Date: 07/31/24 PCP Handoff Recommended Outpatient Testing Follow up with PCP, referral sent to cardiology Results Pending At Discharge None Clinical Summary Chinmay Grimaldo is a 73 y.o. female patient of Trang Carr MD with history of GERD who presented to [facility] on 07/30/2024 with chest pain. Chest pain [...] Trang Carr MD [address] [facility] [address] Follow up Day, Isabella Otto MD [address] [facility] [address] Follow up Referral sent Condition at Discharge: Good Disposition: Home I reviewed discharge recommendations with the patient in person. Patient instructions, including activity, were given to the patient/family at discharge. On day of discharge I saw Chinmay Grimaldo and spent: > 30 minutes on discharge. Completed by: Darby Velasco CNP on 07/31/24, 1:20 PM AUTHENTICATED BY DARBY VELASCO, ON 07/31/2024 13:26:58 [facility] 07-31-2024 Hospital course Narrative [facility] DISCHARGE SUMMARY -- [facility] Chinmay Grimaldo Admitted: 07/30/2024 Discharge Date: 07/31/24 PCP Handoff Recommended Outpatient Testing Follow up with PCP, referral sent to cardiology Results Pending At Discharge None Clinical Summary Chinmay Grimaldo is a 73 y.o. female patient of Trang Carr MD with history of GERD who presented to [facility] on 07/30/2024 with chest pain. Chest pain [...] Trang Carr MD [address] [facility] [id number] Follow up Day, Isabella Otto MD [address] [facility] [address] Follow up Referral sent Condition at Discharge: Good Disposition: Home I reviewed discharge recommendations with the patient in person. Patient instructions, including activity, were given to the patient/family at discharge. On day of discharge I saw Chinmay Grimaldo and spent: > 30 minutes on discharge. Completed by: Darby Velasco CNP on 07/31/24, 1:20 PM documented in this encounter [facility] 07-31-2024 Nurse procedure note CCTA scan explained, questions answered. Denies taking any phosphodiesterase inhibitors for any reason [facility] 07-31-2024 Plan of care note Problem: [...] level of psychosocial functioning Outcome: Partially Met [facility] 07-31-2024 Plan of care note Problem: [...] level of psychosocial functioning Outcome: Partially Met [facility] 07-30-2024 Emergency department Note Report called to inpatient nurse June DECKER. Patient history, current status, and reason for admission discussed. No further questions asked at this time. [facility] 07-30-2024 Emergency department Note Report called to inpatient nurse June RN. Patient history, current status, and reason for admission discussed. No further questions asked at this time. Attempt to call report to inpatient nurse. Nurse will call this nurse back via [employer] per charge. Patient resting in bed at [...] light within reach. Associated Order(s): EKG 12-lead [facility] ED note NAME: Chinmay Grimaldo 73 y.o. CSN: [phone] PCP: Trang Carr MD History: Chief Complaint: [...] with her PCP. Denies history of CAD [place] PE pneumothorax she said about 15 years [...] Oral 68 16 97 % -- -- 07/30/240 122/82 -- -- 64 17 96 % [...] All other components within normal limits Narrative: [facility] Laboratory Services has implemented the eGFR [...] Procedure Abnormality Status --------- ------ CBC Auto Differential[[id number]] Final result Please view results for these tests on the individual orders. TROPONIN TROPONIN TROPONIN CBC WITH AUTO DIFFERENTIAL XR Chest 1 View Final Result 1. Minimal linear atelectasis or scarring in the left lower lung zone. 2. Normal heart size. 3. No acute osseous abnormality. [place]alt Workstation ID: [id number] CCTA Heart With And Without Contrast (Results Pending) CCTA Heart (Production Worker read) (Results Pending) Procedures: EKG 12-lead Date/Time: 07/30/2024 7:36 PM Performed by: Yisel Josue MD Authorized by: Yisel Josue MD Interpreted by ED attending physician Rhythm: sinus rhythm BPM: 75 Conduction: conduction normal ST Segments: ST segments normal T Waves: T waves normal Clinical impression: non-specific ECG Comments: EKG with normal sinus rhythm rate of 75 beats per minutes PA interval 148 ms QRS duration 84 ms [...] tablet 20 mg (20 mg Oral Given 07/30/243) traZODone (DESYREL) tablet 50 mg (has no [...] No Yisel Josue MD ED Attending Physician [facility] Emergency Department (Please note that [...] when she eats. documented in this encounter [facility] 07-30-2024 Emergency department Note Attempt to call report to inpatient nurse. Nurse will call this nurse back via vocera per charge. [facility] 07-30-2024 Emergency department Note Patient resting [...] in place and call light within reach. [facility] 07-30-2024 History and physical note [facility] HISTORY AND PHYSICAL -- [facility] Patient Name: Chinmay Grimaldo : 1950 MR #: [id number] Admit Date: 07/30/2024 Physicians: Trang Carr MD (Family); No ref. provider found (Referring) Chinmay Grimaldo is a 73 y.o. female patient of Trang Carr MD with history of GERD who presented to [facility] on 07/30/2024 with chest pain. Chest pain [...] with history of GERD who presented to [facility] on 07/30/2024 with chest pain. Pt stated she started having chest pain earlier today. She was unable to describe the pain, just described it as a sensation in the left side of her chest. It did not worsen with activity or improve with rest. Did not change with deep inspiration. She went to [place] ED for further evaluation. EKG unremarkable. CXR [...] to monitor and adjust care as needed. [facility] 07-30-2024 History and physical note [facility] HISTORY AND PHYSICAL -- [facility] Patient Name: Chinmay Grimaldo : 1950 MR #: [id number] Admit Date: 07/30/2024 Physicians: Trang Carr MD (Family); No ref. provider found (Referring) Chinmay Grimaldo is a 73 y.o. female patient of Trang Carr MD with history of GERD who presented to [facility] on 07/30/2024 with chest pain. Chest pain [...] with history of GERD who presented to [facility] on 07/30/2024 with chest pain. Pt stated she started having chest pain earlier today. She was unable to describe the pain, just described it as a sensation in the left side of her chest. It did not worsen with activity or improve with rest. Did not change with deep inspiration. She went to [place] ED for further evaluation. EKG unremarkable. CXR [...] care as needed. documented in this encounter [facility] 07-30-2024 Emergency department Note Patient resting [...] in place and call light within reach. [facility] 07-30-2024 Emergency department Note Patient resting [...] in place and call light within reach. [facility] 07-30-2024 Physician Emergency department Note Associated Order(s): EKG 12-lead [facility] ED note NAME: Chinmay Grimaldo 73 y.o. CSN: [id number] PCP: Trang Carr MD History: Chief Complaint: [...] with her PCP. Denies history of CAD [place] PE pneumothorax she said about 15 years [...] All other components within normal limits Narrative: [facility] Laboratory Services has implemented the eGFR [...] Procedure Abnormality Status --------- ------ CBC Auto Differential[[id number]] Final result Please view results for these tests on the individual orders. TROPONIN TROPONIN TROPONIN CBC WITH AUTO DIFFERENTIAL XR Chest 1 View Final Result 1. Minimal linear atelectasis or scarring in the left lower lung zone. 2. Normal heart size. 3. No acute osseous abnormality. GJT/alt Workstation ID: [id number] CT CCTA Heart With And Without Contrast (Results Pending) CCTA Heart (Production Worker read) (Results Pending) Procedures: EKG 12-lead Date/Time: 07/30/2024 7:36 PM Performed by: Yisel Josue MD Authorized by: Yisel Josue MD Interpreted by ED attending physician Rhythm: sinus rhythm BPM: 75 Conduction: conduction normal ST Segments: ST segments normal T Waves: T waves normal Clinical impression: non-specific ECG Comments: EKG with normal sinus rhythm rate of 75 beats per minutes PA interval 148 ms QRS duration 84 ms [...] No Yisel Josue MD ED Attending Physician [facility] Emergency Department (Please note that portions of this note have been completed with a voice recognition software. Efforts were made to correct any errors, but occasionally words are mis-transcribed.) iYsel Josue MD 07/31/24 1004 [facility] 07-30-2024 Emergency department Note Assumed care of this patient at this time,.Pt rounded on at this time. Pt resting comfortably. Denies needs at this time. Updated on plan of care. Call light within reach. [facility] 07-30-2024 Emergency department Note Patient reports chest pain on and off x 1 month. Patient reports she had a helter monitor a 1 week and just looked up her results tonight. [facility] 07-30-2024 Emergency department Note ED provider at the bedside. [facility] 07-30-2024 Emergency department Triage note Pt to ED with c/o chest pain that started today. Pt states it flares up when she eats. [facility] 03-23-2024 Instructions Molly Kirby OD - 03/23/2024 2:25 PM EDT ASSESSMENT/PLAN: 1. Dry eyes - ICD9: 375.15, ICD10: H04.123 Recommended the use of artificial tears four times per day to maintain good vision and comfort. Discussed contacting the office if there is a change in comfort or vision. Suggested dilated eye exam documented in this encounter [facility] 03-23-2024 Note HNO ID: [id number] Author: MOLLY KIRBY OD Service: ? Author Type: WEATHER OBSERVER Type: Progress Notes Filed: 03/23/2024 14:26 Note [...] neuro exam findings as obtained by others. [facility] 03-23-2024 History of Present illness Narrative [...] obtained by others. documented in this encounter [facility] 01-20-2024 Instructions Molly Kirby OD - 01/20/2024 [...] to be scheduled. documented in this encounter [facility] 01-20-2024 Note HNO ID: [id number] Author: MOLLY KIRBY OD Service: ? Author Type: WEATHER OBSERVER Type: Progress Notes Filed: 01/20/2024 08:32 Note [...] neuro exam findings as obtained by others. [facility] 01-20-2024 History of Present illness Narrative [...] obtained by others. documented in this encounter [facility] 10-04-2022 Instructions Romero Kirby II, OD - [...] others. I have seen and examined Chinmay Sanchezt. I have discussed the case and the management of this patient's care with the Resident/Fellow, if applicable. I also have reviewed and agree with the assessment and plan as stated above and agree with all of its relevant components. 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 [facility] noteNo assessment information availableWCity Hospital Work Phone: Evaluation note* Diagnosis Subconjunctival hemorrhage of left eye- Primary documented in this encounter [facility] note* Diagnosis Dry eyes- Primary Tear film insufficiency, unspecified documented in this encounter [facility] note* Diagnosis Cardiac arrhythmia, unspecified cardiac arrhythmia type- Primary Palpitations Chest discomfort Other chest pain Chest pain- Primary Unspecified chest pain Chest pain, unspecified type documented in this encounter [facility] note* Diagnosis Cardiac arrhythmia, unspecified cardiac arrhythmia type- Primary Palpitations Chest discomfort Other chest pain Palpitations- Primary Chest pain, unspecified type documented in this encounter [facility] note* Diagnosis Myopia of both eyes- Primary Myopia Regular astigmatism of both eyes Regular astigmatism Presbyopia documented in this encounter [facility] Discharge instructions* Attachments The following attachments cannot be sent through Care Everywhere. * Chest Pain (Guinean) documented in this encounterOhioHealthReason for referral (narrative)No reason for referral information availableWCity Hospital Work Phone: Summary Purpose Family History No Family History Records FoundNo Family History Records FoundNo Family History Records FoundNo Family History Records FoundNo Family History Records FoundNo Family History Records FoundNo Family History Records FoundNo Family History Records FoundNo Family History Records Found Advance Directives No Advanced Directives Records FoundDocuments on File Type Date Recorded Patient Decoration Checker Expl anation Advance Directives and Livin g Will 09/06/2019 5:10 PM Documents on File Type Date Recorded Patient Decoration Checker Expl anation Advance Directives and Livin g Will 09/06/2019 5:10 PM Advance Directives and Livin g Will 09/11/2019 12:00 AM Documents on File Type Date Recorded Patient Decoration Checker Expl anation Advance Directives and Livin g Will 09/06/2019 5:10 PM Advance Directives and Livin g Will 09/11/2019 12:00 AM Documents on File Type Date Recorded Patient Decoration Checker Expl anation Advance Directives and Living Will 09/11/2019 Date Activated Date Inactivated Comments 07/30/2024 9:33 PM 07/31/2024 4:30 PM Documents on File Type Date Recorded Patient Decoration Checker Expl anation Advance Directives and Living Will 09/11/2019 Date Activated Date Inactivated Comments 07/30/2024 9:33 PM 07/31/2024 4:30 PM Reason for Referral Status Reason Specialty Diagnoses / Procedures Referred By Contact Referred To Contact Pending Review Specialty Services Required/Patien t's Best Interest Cardiology Yisel Josue MD [address] [place] [address] Status Reason Specialty Diagnoses / Procedures Referred By Contact Referred To Contact Pending Review Cardiology Diagnoses Tachycardia Procedures Holter monitor - 48 hour Dipak Seth MD [address] [place] [address] Discharge Instructions * Attachments The following attachments cannot be sent through Care Everywhere. * Hypokalemia (Guinean) * Palpitations (Guinean) documented in this encounter Assessments Diagnosis Palpitations Hypokalemia Hypopotassemia Diagnosis Cardiac arrhythmia, unspecified cardiac arrhythmia type Palpitations Chest discomfort Other chest pain Diagnosis Tachycardia Unspecified tachycardia Instructions Name Dates Details Instructions not documented History of Present Illness * Kimo Vasquez MD - 09/22/2019 9:27 AM EST OFFICE CONSULTATION NOTE [facility] [address] [facility] [address] [facility] [id number] Physicians: Dipak Seth MD (Family); Yisel Josue [...] 3pm SCREENING January 13, 2025 10:06 am Chief Complaint Admit Date PHARGNGITIS December 04, 2024 2:5 3pm SCREENING January 13, 2025 10:06 am JAW PAIN February 10, 2025 6:56a m Chief Complaint Admit Date PHARGNGITIS December 04, 2024 2:5 3pm SCREENING January 13, 2025 10:06 am JAW PAIN February 10, 2025 6:56a m Jaw pain March 10, 2025 4:43 pm Additional Source Comments INFORMATION SOURCE (unrecogn ized section and content) DATE CREATED AUTHOR 04/17/2019 [facility] DATE CREATED AUTHOR AUTHOR'S ORGANIZ ATION 10/31/2020 [employer] DATE CREATED AUTHOR AUTHOR'S ORGANIZ ATION 01/25/2022 [facility] DATE CREATED AUTHOR AUTHOR'S ORGANIZ ATION 12/15/2022 [facility] DATE CREATED AUTHOR AUTHOR'S ORGANIZ ATION 12/01/2023 [facility] DATE CREATED AUTHOR AUTHOR'S ORGANIZ ATION 12/04/2024 [facility] DATE CREATED AUTHOR AUTHOR'S ORGANIZ ATION 12/05/2024 [facility] DATE CREATED AUTHOR AUTHOR'S ORGANIZ ATION 01/13/2025 [facility] DATE CREATED AUTHOR AUTHOR'S ORGANIZ ATION 03/21/2025 [facility] Reason for Visit (unrecogniz ed section and content) Reason Comments increased heart rate Reason Comments Establish Care hx of palpitations. no complaints of palps currently. Holter completed. Status Reason Specialty Diagnoses / Procedures Referred By Contact Referred To Contact Pending Review Specialty Services Required/Patien t's Best Interest Cardiology Yisel Josue MD [address] [place] [address] Status Reason Specialty Diagnoses / Procedures Referred By Contact Referred To Contact Pending Review Cardiology Diagnoses Tachycardia Procedures Holter monitor - 48 hour Dipak Seth MD [address] [place] [address] Reason Comments Blepharitis Evaluation Reason Comments Red Eye Left Eye Reason Comments Eye Pain Left Eye Reason Comments Chest Pain Specialty Diagnoses / Procedures Referred By Mireya padilla Referred To Contact Diagnoses Chest pain Referral ID Status Reason Start Date Expiration Date Visits Re quested Visits Authorized [id number] 1 1 Reason Comments Palpitations Tachycardia Specialty Diagnoses / Procedures Referred By Mireya padilla Referred To Contact Cardiology Diagnoses Chest pain, unspecified type [facility] [address] [place] [address] Phone: tel: fax: Isabella Dixon MD [address] [place] [address] Phone: tel: fax: Referral ID Status Reason Start Date Expiration Date V isits Requested Visits Authorized [id number] Pending Review 08/31/2024 08/31/2025 1 1 Reason Onset Date Comments Medication Refill 12/04/2024 Reason Onset Date Comments Medication Refill 12/03/2024 Reason Comments Yearly Exam Olga Guevara RN - 09/06/2019 4:57 PM ESTKranthillYisel garcia MD - 09/06/2019 4:56 PM EST ED Notes (unrecognized secti on and content) PT STATES SHE HAS BEEN NAUSEATED WITH DISCOMFORT IN HER R CHEST. PT STATES HER HEART RATE ON HER FITBIT WAS 190. PT ALSO STATES SHE FELT DIZZY. DENIES PREVIOUS HISTORY. ED PROVIDER NOTE [facility] EMERGENCY [facility] NAME: Chinmay Grimaldo AGE: 68 y.o. : 1950 VISIT DATE: 09/06/2019 CSN: [id number] PCP: Dipak Seth MD Chief Complaint Patient [...] thyroid abnormalities she denies any history of [place] PE pneumothorax no recent travel hospitalization or [...] file Gets together: Not on file Attends episcopal service: Not on file Active member of [...] Colorless, Yellow Clarity, Urine Clear Clear Specific [place] 1.009 1.005 - 1.025 pH, Urine 5.0 [...] any previous history of coronary artery disease [place] PE pneumothorax presents to the ED with [...] [address] [facility] [address] 2. [facility]. Specialty: Cardiology Why: If symptoms worsen [address] [facility] Medical Office [facility] [phone] Contact information for after-discharge [...] or prosecute any alcohol or drug abuse patient.[facility] CenterIn the event this information is protected by the Federal Confidentiality of Alcohol and Drug Abuse Patient Records regulations: The Federal rules restrict any use of the information to criminally investigate or prosecute any alcohol or drug abuse patient.[facility] CenterIn the event this information is protected by the Federal Confidentiality of Alcohol and Drug Abuse Patient Records regulations: The Federal rules restrict any use of the information to criminally investigate or prosecute any alcohol or drug abuse patient.[facility] CenterIn the event this information is protected by the Federal Confidentiality of Alcohol and Drug Abuse Patient Records regulations: The Federal rules restrict any use of the information to criminally investigate or prosecute any alcohol or drug abuse patient.[facility] Care Teams (unrecognized sec tion and content) Administrative Dietitian Relationship Specialty Start Date End Date Dipak [...] Active Sondra Vu DO Attending Provider Active Administrative Dietitian Relationship Specialty Start Date End Date Trang Carr MD [address] [facility] [address] [place], [place] [address] PCP - General Internal Medicine 01/20/24 Administrative Dietitian Relationship Specialty Start Date End Date Trang Carr MD [address] [facility] [address] [place] [address] PCP - General Internal Medicine 01/20/24 Administrative Dietitian Relationship Specialty Start Date End Date Trang Carr MD [address] [place] [address] PCP - General Family Medicine 11/25/23 Team Status: Active Member Role Status Dates Trang Carr MD Primary Care Provider Active Team Status: Inactive Member Role Status Dates Trang Carr MD Primary Care Provider Active St art: November 24, 2024 End: November 24, 2024 Aroldo Cespedes ZIPPER SEWING MACHINE OPERATOR, ZIPPER SEWING MACHINE OPERATOR-C Attending Provider Active Start: November 24, 2024 End: November 24, 2024 Aroldo Cespedes ZIPPER SEWING MACHINE OPERATOR ZIPPER SEWING MACHINE OPERATOR-C Referring Provider Active Start: November 24, 2024 End: November 24, 2024 Administrative Dietitian Relationship Specialty Start Date End Date Trang Carr MD [address] [place] [address] PCP - General Family Medicine 11/25/23 Administrative Dietitian Relationship Specialty Start Date End Date Trang Carr MD [address] [place] [address] PCP - General Family Medicine 11/25/23 Team [...] January 13, 2025 End: January 13, 2025 Administrative Dietitian Relationship Specialty Start Date End Date Trang Carr MD [address] [id number] PCP - General Internal Medicine 01/20/24 Administrative Dietitian Relationship Specialty Start Date End Date Trang Carr MD [address] [place] [address] PCP - General Family Medicine 11/25/23 Team Status: Inactive Member Role Status Jenny Carr MD Primary Care Provider Active St art: January 19, 2025 End: January 19, 2025 Trang Carr MD Attending Provider Active Start : January 19, 2025 End: January 19, 2025 Trang Carr MD Referring Provider Active Start : January 19, 2025 End: January 19, 2025 Administrative Dietitian Relationship Specialty Start Date End Date Trang Carr MD [address] [place], [place] [phone] PCP - General Family Medicine 11/25/23 Team Status: Active Member Role/Relationship Status Jenny Carr MD Primary Care Provider Active Team Status: Inactive Member Role/Relationship Status Jenny Carr MD Primary Care Provider Active St art: November 24, 2024 End: November 24, 2024 Aroldo Cespedes ZIPPER SEWING MACHINE OPERATOR, ZIPPER SEWING MACHINE OPERATOR-C Attending Provider Active Start: November 24, 2024 End: November 24, 2024 Aroldo Cespedes ZIPPER SEWING MACHINE OPERATOR, ZIPPER SEWING MACHINE OPERATOR-C Referring Provider Active Start: November 24, 2024 End: November 24, 2024 Team Status: Inactive Member Role/Relationship Status Jenny Carr MD Primary Care Provider Active St art: December 04, 2024 End: December 04, 2024 Dr. Pb Corrales MD Attending Provider Activ e Start: December 04, 2024 End: December 04, 2024 Dr. Pb Corrales MD Referring Provider Activ e Start: December 04, 2024 End: December 04, 2024 Team Status: Inactive Member Role/Relationship Status Jenny Carr MD Primary Care Provider Active St art: January 13, 2025 End: January 13, 2025 Trang Carr MD Attending Provider Active Start : January 13, 2025 End: January 13, 2025 Trang Carr MD Referring Provider Active Start : January 13, 2025 End: January 13, 2025 Team Status: Inactive Member Role/Relationship Status Jenny Carr MD Primary Care Provider Active St art: January 13, 2025 End: January 13, 2025 Trang Carr MD Attending Provider Active Start : January 13, 2025 End: January 13, 2025 Trang Carr MD Referring Provider Active Start : January 13, 2025 End: January 13, 2025 Team Status: Inactive Member Role/Relationship Status Jenny Carr MD Primary Care Provider Active St art: January 19, 2025 End: January 19, 2025 Trang Carr MD Attending Provider Active Start : January 19, 2025 End: January 19, 2025 Trang Carr MD Referring Provider Active Start : January 19, 2025 End: January 19, 2025 Team Status: Inactive Member Role/Relationship Status Jenny Carr MD Primary Care Provider Active St art: February 10, 2025 End: February 10, 2025 Trang Carr MD Attending Provider Active Start : February 10, 2025 End: February 10, 2025 Trang Carr MD Referring Provider Active Start : February 10, 2025 End: February 10, 2025 Team Status: Inactive Member Role/Relationship Status Dates Trang Carr MD Primary Care Provider Active St art: March 10, 2025 End: March 10, 2025 Trang Carr MD Attending Provider Active Start : March 10, 2025 End: March 10, 2025 Trang Carr MD Referring Provider Active Start : March 10, 2025 End: March 10, 2025 Goals (unrecognized section and content) Goals may [...] Nightly, First dose on Andreina 07/30/24 at [id number] (Given - Provider: Dipak Maldonado RN) [...] at 0900, DO NOT CRUSH OR CHEW. 0902 (Given - Provid er: Amanda López RN) [...] 1020 (Contrast Admin istered - Provider: Jaden Price TECHNOLOGIST - Comment: [id number]) metoprolol (LOPRESSOR) injection 10 mg 10 mg, Intravenous, Every 10 min PRN, 1 hour after oral dose for HR greater than 60 beats per minute AND SBP greater than 90 mmHg., Starting on Sat07/31/24 at 0817, For 3 doses, Pre-Procedure, >>>>>TO BE RELEASED AND GIVEN IN PROCEDURE AREA ONLY<<<<< Push over 3 minutes; may repeat dose 2 times. Notify Radiologist/Production Worker if HR remains greater than 60 beats [...] mL, Intravenous, Once in imaging, contrast, Per bias machine operator helper (Radiology) for line patency check prior to contrast administration, Starting on Sat07/31/24 at 1005, For 1 dose 1020 (Given - Provid er: Jaden Price TECHNOLOGIST) sodium chloride (PF) (NS) 0.9 % contrast line flush 80 mL (COMPLETED)(Linked Group 1) 80 mL, Intravenous, Once in imaging, contrast, Per bias machine operator helper (Radiology), Starting on Sat07/31/24 at 1005, For [...] mL, Intravenous, Once in imaging, contrast, Per bias machine operator helper (Radiology) for line patency check prior to contrast administration, Starting on Sat07/31/24 at 1005, For 1 dose And sodium chloride (PF) (NS) 0.9 % contrast line flush 80 mL (COMPLETED)Jump to med 80 mL, Intravenous, Once in imaging, contrast, Per bias machine operator helper (Radiology), Starting on Sat07/31/24 at 1005, For [...] BE BASED ON THE PRIMARY CLINICAL RECORDS. [employer] [facility]. provides no warranty or guarantee of the accuracy or completeness of information in this document.
[2025-03-26 13:09] LABS: Anti-Histone Abs 2.3 Units (0.0-0.9)
== END 2025-03-23 23:59 | disposition home or self-care (01) ==
LOC: MFPLAB 09:25
PROVIDERS: PCP Family Medicine; Referring Provider Family Medicine; Visit Provider Family Medicine
DX: E78.5 Hyperlipidemia, unspecified (principal)
CPT/HCPCS: 36415; 80053; 80061; 82306; 85025; 86235

== ENCOUNTER → 2025-04-01 | Outpatient (CLI) | payer MEDICARE, SELFPAY ==
[2025-04-01 18:57] LABS: Vitamin B12 611 pg/mL (180-914)
== END | disposition home or self-care (01) ==
LOC: MFPLAB 11:34
PROVIDERS: PCP Family Medicine; Referring Provider Family Medicine; Visit Provider Family Medicine
DX: E53.9 Vitamin B deficiency, unspecified (principal)
CPT/HCPCS: 36415; 82607

== ENCOUNTER 2025-04-24 10:55 | Emergency (ER) | payer MEDICARE, SELFPAY ==
[2025-04-24] VITALS (13 sets, daily range): BP systolic 100–149; BP diastolic 56–90; PULSE 62–115; RESP 11–21; TEMP 36.7–37.1; O2SAT 95–99; BMI 23.6
--- NOTE | 2025-04-24 11:14 | EKG12_ITS ---
Test Reason : REPEAT AFTER MEDS Blood Pressure : */* mmHG Vent. Rate : 68 BPM Atrial Rate : 68 BPM P-R Int : 122 ms QRS Dur : 88 ms QT Int : 364 ms P-R-T Axes : 59 48 42 degrees QTcB Int : 387 ms Normal sinus rhythm Normal ECG Confirmed by Daniel Farias ([id number]), business editor MONAE GOMES ([id number]) on 04/26/2025 1:14:54 PM Referred By: Confirmed By: Daniel Farias
--- NOTE | 2025-04-24 11:15 | EKG12_ITS ---
Test Reason : REPEAT Blood Pressure : */* mmHG Vent. Rate : 125 BPM Atrial Rate : 125 BPM P-R Int : 132 ms QRS Dur : 82 ms QT Int : 296 ms P-R-T Axes : 66 48 73 degrees QTcB Int : 427 ms Sinus tachycardia with Premature supraventricular complexes Nonspecific ST and T wave abnormality Abnormal ECG possible paf Confirmed by Daniel Farias ([id number]), senior technical editor MONAE GOMES ([id number]) on 04/26/2025 1:15:11 PM Referred By: Confirmed By: Daniel Farias
--- NOTE | 2025-04-24 11:15 | ED.VIS.DYS ---
HPI History of Present Illness Chief Complaint: Shortness of Breath Informant: patient and spouse/S.O. Narrative Narrative: 74-year-old female presents with sudden onset intermittent dyspnea and palpitations with lightheadedness started while she was doing light exertion walking with her . No chest discomfort but she had some left-sided chest discomfort last night that she did not think was anything major, she states she gets it in most every night when she lays on that side which she did last night. She had no chest discomfort associated with the dyspnea today. She states she has had some palpitations in the past where her heart rate was high in the 170 range, and she had a Holter for the next week but it did not capture any events and was unremarkable. She states for the past 6 months she has been having unexplained neck and teeth pain, states that she has had imaging and studies but they have been unremarkable home and is still being followed by her doctor. She saw cardiology because of the palpitations but she has no history of any other heart problems, this was in [place]. She denies any leg pain or swelling, pleuritic chest discomfort at this time, her symptoms are minimal right now she feels a little lightheaded and occasionally feels the palpitations, but otherwise feels okay. Denies any recent cough or fevers/chills. No recent immobilization or long travel or hospitalization/surgery in the last month or so. No history of DVT or PE. PFSH [facility] Home Medications ?Medication ?Instructions ?Recorded ?Last Taken ?Type denosumab 60 mg/mL subcutaneous 60 mg subcut .COMPLEX 04/23/24 10/09/24 History syringe (Prolia) cholecalciferol (vitamin D3) 125 125 mcg PO DAILY 04/24/25 04/23/25 History mcg (5,000 unit) tablet (Vitamin D3) diltiazem HCl 120 mg 120 mg PO DAILY #30 caps 04/24/25 Unknown Rx capsule,extended release 24 hr (Cartia XT) mecobalamin (vitamin B12) 1,000 1,000 mcg PO DAILY 04/24/25 04/23/25 History mcg chewable tablet rosuvastatin 20 mg tablet 20 mg PO QHS 04/24/25 04/23/25 History Allergy/AdvReac Type Severity Reaction Status Date / Time ibandronate sodium (From Allergy sore throat Verified 04/24/25 10:56 Roxana) Social History Smoking Status: Never smoker ROS ROS ED Constitutional Constitutional ED: Denies chills or fever(s) Eyes Eyes: Denies change in vision or diplopia ENT ENT ED: Denies rhinorrhea or sore throat Cardiovascular Cardiovascular: Reports as per HPI, lightheadedness, palpitations and racing heartbeat; Denies chest pain, leg edema or syncope Respiratory/Chest Respiratory/Chest: Reports as per HPI and dyspnea; Denies cough Gastrointestinal Gastrointestinal: Denies abdominal pain, diarrhea, nausea or vomiting Genitourinary Genitourinary ED: Denies dysuria or hematuria Musculoskeletal Musculoskeletal: Denies back pain or neck pain Integumentary Denies abscess or rash Neurologic Neurologic: Denies headache(s), paresthesias or weakness Psychiatric Psychiatric: Denies anxiety or suicidal thoughts EXAM Physical Exam Const Vital Signs: 04/24/25 10:56 04/24/25 11:34 04/24/25 11:35 Temperature 98.7 F Temperature Source Temporal Pulse Rate 104 H 115 H Respiratory Rate 18 19 H Respiratory Effort Blood Pressure 145/90 H Blood Pressure Mean 108 Pulse Ox 96 96 Oxygen Delivery Method Room Air Room Air 04/24/25 11:36 04/24/25 11:45 04/24/25 11:56 Temperature Temperature Source Pulse Rate 95 68 Respiratory Rate 18 11 L Respiratory Effort Short of Breath Blood Pressure 149/81 H Blood Pressure Mean 103 Pulse Ox 95 98 Oxygen Delivery Method Room Air 04/24/25 12:00 04/24/25 12:00 04/24/25 12:15 Temperature Temperature Source Pulse Rate 74 96 Respiratory Rate 19 H Respiratory Effort Blood Pressure 149/82 H 148/81 H Blood Pressure Mean 104 103 Pulse Ox 97 Oxygen Delivery Method 04/24/25 12:30 04/24/25 13:00 04/24/25 13:30 Temperature Temperature Source Pulse Rate 65 73 77 Respiratory Rate 19 H 15 21 H Respiratory Effort Blood Pressure 118/60 100/76 118/65 Blood Pressure Mean 77 80 80 Pulse Ox 96 98 98 Oxygen Delivery Method Room Air Room Air 04/24/25 14:00 04/24/25 14:30 04/24/25 15:00 Temperature Temperature Source Pulse Rate 63 62 66 Respiratory Rate 17 18 20 H Respiratory Effort Blood Pressure 107/64 118/56 L 125/69 H Blood Pressure Mean 75 74 84 Pulse Ox 98 99 Oxygen Delivery Method Room Air Room Air Positive well nourished and well developed General Appearance ED: well developed and NAD HEENT Reports moist mucous membranes normocephalic and atraumatic Eyes PERRL and EOMs intact bilaterally Neck full ROM and supple Resp normal respiratory effort and clear to auscultation bilaterally Cardio no murmurs Rate: tachycardic Rhythm: abnormal rhythm irregularly irregular GI non-tender and non-distended Auscultation: normoactive bowel sounds Palpation: soft Back/Spine no CVA tenderness General Back: other FROM Extremity normal to inspection Extremity Narrative: No calf tenderness or palpable cords bilaterally General Extremety ED: Negative for edema, pulses abnormal or tenderness General Extremity: Negative for edema or pulses abnormal Neuro oriented x3, CN's II-XII intact bilaterally and no sensory deficits noted Sensorium / Orientation: awake and alert Motor Exam: strength 5/5 throughout Skin no rashes or lesions noted and no wounds MDM MDM MDM Narrative Medical decision making narrative: Initial EKG obtained while patient was symptomatic just after arrival shows what appears to be on my interpretation paroxysmal arrhythmia, most likely to be atrial fibrillation based on the appearance of it. We did another EKG later when the patient was having paroxysms of tachycardia around 170, and this looks more like paroxysmal atrial fibrillation to me. There are some nonspecific ST-T wave abnormalities that I believe are likely related to rate, but certainly we did evaluate her for atypical symptoms of ischemia with sequential troponin measurements, they were low but trending up after 2 of them at 15 and 21 respectively, so a third was obtained and she was given a dose of Cardizem which seem to resolve everything and keep her in a sinus rhythm, which also resulted in complete resolution of all of her symptoms. Third EKG was obtained showing this. It is certainly possible that this is paroxysmal atrial fibrillation, therefore performed a risk score for stroke and need for anticoagulation, as below: ROSALINO?DS?-VASc Score for Atrial Fibrillation Stroke Risk from [email or web address] on 04/24/2025 All calculations should be rechecked by clinician prior to use RESULT SUMMARY: 2 points Stroke risk was 2.2% per year in >90,000 patients (the [place] Atrial Fibrillation Cohort Study) and 2.9% risk of stroke/TIA/systemic embolism. Afib patient with elevated ROSALINO?DS?-VASc but worried about bleeding risk? HAS-BLED can help! INPUTS: Age ?> 1 = 65-74 Sex ?> 1 = Female CHF history ?> 0 = No Hypertension history ?> 0 = No Stroke/TIA/thromboembolism history ?> 0 = No Vascular disease history (prior PA, peripheral artery disease, or aortic plaque) ?> 0 = No Diabetes history ?> 0 = No Given this I think reasonable for her to take baby aspirin daily but I do not think she necessarily needs to be placed on anticoagulation for right now, she can follow-up with her tetryl wringer operator and since she sees an out-of-town cardiology group, I gave her copies of all the EKGs that were performed here for her to take to her doctor since we caught these dysrhythmia examples. I am going to put her on a low-dose extended release calcium channel melvina, diltiazem XT 120, to help prevent recurrence. Third troponin went down, patient has continued to be asymptomatic with no telemetry events except for an occasional PVC. Stable for discharge with the above plan. Lab Data Attestation: I reviewed the patient's lab results. Labs: Laboratory Results - last 24 hr 04/24/25 04/24/25 04/24/25 11:07 13:04 14:58 WBC 7.4 RBC 4.36 Hgb 13.4 Hct 40.0 MCV 91.7 MCH 30.7 MCHC 33.5 RDW Std Deviation 42.5 RDW Coeff of Terry 12.6 Plt Count 217 MPV 10.9 Immature Gran % (Auto) 0.300 Neut % (Auto) 75.1 H Lymph % (Auto) 15.1 L [place] % (Auto) 8.5 Eos % (Auto) 0.5 Baso % (Auto) 0.5 Absolute Neuts (auto) 5.6 Absolute Lymphs (auto) 1.12 Nucleated RBC % 0 APTT 28.7 Sodium 145 Potassium 3.9 Chloride 106 Carbon Dioxide 25.4 Anion Gap 13 BUN 10 Creatinine 0.73 Estim Creat Clear Calc 51.04 Est GFR (MDRD) Non-Af 86 BUN/Creatinine Ratio 13.9 Glucose 119 H Calcium 10.2 Troponin T High Sens 15 H Troponin T Hi Sens 2 Hr 21 H Troponin T Hi Sens 4Hr 19 H Radiography Chest X-Ray - ED: 1 View, Read by ED Physician, Normal, No Acute Disease and No Infiltrates Diagnostic Testing: Clinical Impression(s) from Imaging Studies Chest X-Ray 04/24/25 11:55 IMPRESSION: Negative chest Reading Location: [facility] Rhythm Strip Rhythm Strip: A-fib Rate: 125 Ectopy: None EKG Initial EKG: Attestation: I personally reviewed and interpreted this EKG as follows: Interpretation: No Acute Injury Pattern Comments: Undetermined rhythm. There are some beats with P waves, but the majority of it looks like the patient is in and out of atrial fibrillation, or possibly just in A-fib and the P waves actually are not. QRS complex narrow. [place] normal. Prior EKG tracings: not available for review Prior: No Prior 2nd EKG, symptomatic: Attestation: I personally reviewed and interpreted this EKG as follows: Interpretation: No Acute Injury Pattern Comments: Narrow QRS tachycardia with what appears to be sinus tachycardia or ectopic atrial tachycardia and then A-fib with RVR at the latter half of the recording 3rd EKG, after Cardizem, asymtpomatic: Attestation: I personally reviewed and interpreted this EKG as follows: Interpretation: Sinus Rhythm and No Acute Injury Pattern Comments: Nml axis & intervals; nml EKG Discharge Plan Triage Chief Complaint: Shortness of Breath ED Provider: Jake Feng Dx/Rx/DC Orders Clinical Impression: Tachyarrhythmia, Lightheadedness Instructions: Calcium Channel Blockers Dc, Arrhythmias Prescriptions: New diltiazem HCl [Cartia XT] 120 mg capsule,extended release 24hr 120 mg PO DAILY Qty: 30 0RF No Action Prolia 60 mg/mL syringe 60 mg subcut .COMPLEX Rx Instructions: 60 mg subcutaneously [id number]; rosuvastatin 20 mg tablet 20 mg PO QHS mecobalamin (vitamin B12) 1,000 mcg tablet,chewable 1,000 mcg PO DAILY cholecalciferol (vitamin D3) [Vitamin D3] 125 mcg (5,000 unit) tablet 125 mcg PO DAILY Primary Care Provider: Trang Ye Referrals: your tetryl wringer operator [Other] - As soon as possible Activity Restrictions/Additional Instructions: Take baby aspirin daily Print Language: Khmer Disposition Disposition: Home, Self Care
[2025-04-24 11:31] LABS: Hematocrit 40.0 % (37-47); Hemoglobin 13.4 g/dL (12.0-15.0); Immature Granulocytes Count 0.020 X10^3/uL (0.0-0.0); Mean Corp Hgb Conc 33.5 g/dL (32-36); Mean Corpuscular Volume 91.7 fL (81-99); Mean Platelet Vol. 10.9 fl (6.2-12.0); NRBC Flagged by Analyzer 0 % (0-5); Platelet Count 217 K/mm3 (150-450); RBC Distribution Width CV 12.6 % (11.6-14.6); RBC Distribution Width SD 42.5 fl (35.1-43.9); Red Blood Count 4.36 M/mm3 (4.2-5.4); White Blood Count 7.4 K/mm3 (4.4-11.0)
[2025-04-24 11:41] LABS: Partial Thromboplast Time 28.7 Seconds (24.1-36.2)
--- OUTSIDE RECORDS SUMMARY | 2025-04-24 11:45 | XMS RPT_ITS | CCD ---
Author Organization [facility] Care Team Providers Care Disabilities Caregiver Name Role Phone Dipak Seth Primary Care [...] Unavailable Trang Carr MD Primary Care Provider [phone] Trang Carr MD Primary Care Provider Trang Carr MD Primary Care Provider [phone] Fernyorrow MAORI PHYSIOTHERAPIST-CAroldo Attending Provider Fenryorrow MAORI PHYSIOTHERAPIST-CAroldo Referring Provider DARBY VELASCO Admitting Unavailable TRANG CARR Primary Care Unavailable ISABELLA DIXON Attending Unavailable TRANG CARR Primary Care Unavailable ROYER VICTORIA Attending Unavailable JERE COLON Admitting Unavailelizabeth e TRANG CARR Primary Care Unavailable JASON VIDALES Attending Unavailabl e [facility] Consulting [address] Attending Unavailabl e COOPERRIDER, MOLLY Arana Referring Unavailabl e LILLY, CHALON Primary Care Unavailable MOLLY KIRBY Attending Unavailabl e SELF Referring Unavailable LILLY, CHALON Primary Care Unavailable MOLLY KIRBY Attending Unavailabl e COOPERRIDER, MOLLY T Referring Unavailabl e LILLY, CHALON Primary Care Unavailable Savanna MASON, Dr. Ambriz Attending Provider Savanna MASON, Dr. Ambriz Referring Provider Lilly MASON, Trang Attending Provider Lilly MASON, Chalreza Referring Provider Lilly MASON, Chalon Primary Care Provider Lilly MASON, Chalon Primary Care Provider [phone] Lilly, Chalon Primary Care Unavailable Lilly, Chalon [...] Care Unavailable Pb Corrales Attending Unavailabl e WartmannPb Referring Unavailabl e Lilly, Chalon Primary Care Unavailable McMorrow MAORI PHYSIOTHERAPIST, Aroldo Attending Unavailable McMorrow MAORI PHYSIOTHERAPIST, Aroldo Referring Unavailable Lilly, Chalon Primary Care Unavailable ZANDER, JENN1 Attending Unavailable Lilly, Chalon Primary Care Unavailable Daniel Upton Attending Unavailable Lilly, Chalon Referring Unavailable Lilly, Chalon Primary Care Unavailable Daniel Upton Attending Unavailable Lilly, Chalon Referring Unavailable Lilly, Chalon Attending Unavailable Lilly, Chalon Referring Unavailable Lilly, Chalon Primary Care Unavailable Lilly, Chalon Attending Unavailable Lilly, Chalon Referring Unavailable Lilly, Chalon Primary Care Unavailable Allergies Allergy Classification Reported Allergen(s) Allergy Type Date of Onset Reaction(s) Facility (2 sources) Ibandronate Drug Allergy Other [facility] (20 sources) Ibandronate; Translations: [IBANDRONATE] Drug Allergy 5 Other: See Comments, Anaphylaxis [facility] Comment on above: no appetite nauseous (1 source) Ibadronate Drug Allergy 4 [facility] Repository Medications Current Medications Medication Drug [...] . 16 g 11/28/2024 11/28/2025 Active lactobac [facility] #3-[id number] 300-250 million cell-mg cap (4 sources) lactobac cmb #1-[id number] 300-250 million cell-mg cap Take by mouth. [...] Serotonin Reuptake Inhibitor Start: 07-30-20 End: 08-30-19 25 take 1 tablet by [...] 05-06-2018 05-06-2018 Chronic Chronic ulcer of skin (10 sources) Non-pressure chronic ulcer of other part of left foot with fat layer exposed; Translations: [Skin ulcer of left foot with fat layer exposed] Onset: 07-17-2024 05-07-2024 Chronic Disorders of lipid metabolism (1 source) Hyperlipidemia, unspecified; Translations: [Hyperlipidemia, unspecified] Onset: 04-06-2025 Chronic Disorders of teeth and jaw (1 [...] 09-22-2019 Episodic Nutritional deficiencies (1 source) Vitamin B deficiency, unspecified; Translations: [Vitamin B deficiency, unspecified] Onset: 04-09-2025 Episodic Open wounds of extremities (9 sources) Puncture wound of sole of foot; Translations: [Puncture wound without foreign body, left foot, initial encounter] 04-23-2024 Episodic Other connective tissue disease (1 source) Impingement syndrome of shoulder region; Translations: [Impingement syndrome, shoulder, right] Episodic Other connective tissue disease (9 sources) Foot pain; Translations: [Pain in left [...] Test Name Value Interpretation Reference Range Facility Vitamin B12on 04-01-2025 Cobalamin (Vitamin B12) [Mass/Vol] 611 pg/mL Normal 180-914 [facility] Comment on above: Performed By: #### L 503.0106 ####[facility] [id number] [place], [address] Vitamin B12 ser/plasOrdered By: Trang Carr on 04-01-2025 Cobalamin (Vitamin B12) [Mass/Vol] 611 pg/mL 180-914 [facility] Anti-Histone Abson ANTI-HISTONE AB 2.3 Units High 0.0-0.9 [facility] Comment on above: Result Comment: Nega tive <1.0 Weak Positive 1.0 - 1.5 Moderate Positive 1.6 - 2.5 Strong Positive >2.5 Performed at: - [address] [id number] Estate Attorney: Amaya Ingram MD, Phone: [phone] Performed By: #### L 506.1001, L500.4050, L100.0100, L3410.0800, L500.4100 ####[facility] [id number] [place], [place], [id number] Absolute lymphocyte countOrd ered By: [facility] on 03-23-2025 Lymphocytes Auto (Unsp spec) [#/Vol] 1.25 10*3/uL 0.83-4.51 [facility] Absolute neutrophil countOrd ered By: [facility] Lilly on 03-23-2025 Neutrophils (Bld) [#/Vol] 3.0 10*3/uL 2.0-7.7 [facility] Anion gap in Serum or Plasma Ordered By: Trang Carr on 03-23-2025 Anion gap [Moles/Vol] 12 mmol/L - [facility] Automated lymphocyte count a s percentage of total leukocytesOrdered By: [facility] Lilly on 03-23-2025 Lymphocytes/100 WBC Auto (Unsp spec) 25.9 % 19-41 [facility] BUN/creatinine ratioOrdered By: [facility] Lilly on 03-23-2025 Urea nitrogen/Creatinine [Mass ratio] 18.9 mg/mg 10-20 [facility] Basophil percentageOrdered B y: Trang Carr on 03-23-2025 Basophils/100 WBC (Bld) 0.8 % 0-1 [facility] Bilirubin, totalOrdered By: Trang Lilly on 03-23-2025 Bilirubin [Mass/Vol] 0.41 mg/dL 0.00-1.30 [facility] CBC W/Diff, Automatedon 03-12 Absolute Lymph 1.25 X10 3/uL Normal 0.83-4.51 [facility] Comment on above: Performed By: #### L 506.1001, L500.4050, L100.0100, L3410.0800, L500.4100 #### [facility] [address] [place], [address] Absolute Neut 3.0 X10 3/uL Normal 2.0-7.7 [facility] Comment on above: Performed By: #### L 506.1001, L500.4050, L100.0100, L3410.0800, L500.4100 #### [facility] [address] [place], [address] Basophils/100 WBC (Bld) 0.8 % Normal 0-1 [facility] Comment on above: Performed By: #### L 506.1001, L500.4050, L100.0100, L3410.0800, L500.4100 #### [facility] [address] [place], [address] Eosinophils/100 WBC (Bld) 1.7 % Normal 0-5 [facility] Comment on above: Performed By: #### L 506.1001, L500.4050, L100.0100, L3410.0800, L500.4100 #### [facility] [address] [place], [address] Erythrocyte distribution width (RBC) [Ratio] 13.0 % Normal 11.6-14.6 [facility] Comment on above: Performed By: #### L 506.1001, L500.4050, L100.0100, L3410.0800, L500.4100 #### [facility] [address] [place], [address] Hematocrit (Bld) [Volume fraction] 39.7 % Normal 37-47 [facility] Comment on above: Performed By: #### L 506.1001, L500.4050, L100.0100, L3410.0800, L500.4100 #### [facility] [address] [place], [address] Hemoglobin (Bld) [Mass/Vol] 12.7 g/dL Normal 12.0-15.0 [facility] Comment on above: Performed By: #### L 506.1001, L500.4050, L100.0100, L3410.0800, L500.4100 #### [facility] [address] [place], [address] IG% 0.200 Normal 0.0-0.9 [facility] Comment on above: Result Comment: IG% - Immature Granulocytes (promyelocytes, myelocytes and metamyelocytes) > 1% indicates that a LEFT SHIFT is Present. Performed By: #### L 506.1001, L500.4050, L100.0100, L3410.0800, L500.4100 #### [facility] [address] [place], [address] Lymphocytes/100 WBC (Bld) 25.9 % Normal 19-41 [facility] Comment on above: Performed By: #### L 506.1001, L500.4050, L100.0100, L3410.0800, L500.4100 #### [facility] [address] [place], [address] MCH (RBC) [Entitic mass] 30.5 pg Normal 27.0-32.0 [facility] Comment on above: Performed By: #### L 506.1001, L500.4050, L100.0100, L3410.0800, L500.4100 #### [facility] [address] [place], [address] MCHC (RBC) [Mass/Vol] 32.0 g/dL Normal 32-36 [facility] Comment on above: Performed By: #### L 506.1001, L500.4050, L100.0100, L3410.0800, L500.4100 #### [facility] [address] [place], [address] MCV (RBC) [Entitic vol] 95.4 fL Normal 81-99 [facility] Comment on above: Performed By: #### L 506.1001, L500.4050, L100.0100, L3410.0800, L500.4100 #### [facility] [address] [place], [address] Monocytes/100 WBC (Bld) 8.3 % Normal 0-10 [facility] Comment on above: Performed By: #### L 506.1001, L500.4050, L100.0100, L3410.0800, L500.4100 #### [facility] [address] [place], [address] Neutrophils/100 WBC (Bld) 63.1 % Normal 47-70 [facility] Comment on above: Performed By: #### L 506.1001, L500.4050, L100.0100, L3410.0800, L500.4100 #### [facility] [address] [place], [address] Nucleated RBC (Bld) [#/Vol] 0 10*3/uL Normal 0-5 [facility] Comment on above: Performed By: #### L 506.1001, L500.4050, L100.0100, L3410.0800, L500.4100 #### [facility] [address] [place], [address] Platelet mean volume (Bld) [Entitic vol] 11.1 fL Normal 6.2-12.0 [facility] Comment on above: Performed By: #### L 506.1001, L500.4050, L100.0100, L3410.0800, L500.4100 #### [facility] [address] [place], [address] Platelets (Bld) [#/Vol] 241 10*3/uL Normal 150-450 [facility] Comment on above: Performed By: #### L 506.1001, L500.4050, L100.0100, L3410.0800, L500.4100 #### [facility] [address] [place], [address] RBC (Bld) [#/Vol] 4.16 10*6/uL Low 4.2-5.4 [facility] Comment on above: Performed By: #### L 506.1001, L500.4050, L100.0100, L3410.0800, L500.4100 #### [facility] [address] [place], [address] RDW SD 45.3 fl High 35.1-43.9 [facility] Comment on above: Performed By: #### L 506.1001, L500.4050, L100.0100, L3410.0800, L500.4100 #### [facility] [address] [place], [address] WBC (Bld) [#/Vol] 4.8 10*3/uL Normal 4.4-11.0 [facility] Comment on above: Performed By: #### L 506.1001, L500.4050, L100.0100, L3410.0800, L500.4100 #### [facility] [address] [place], [address] Calculated very low density lipoprotein (VLDL) cholesterol measurementOrdered By: Trang Carr on 03-23-2025 Calculated very low density lipoprotein (VLDL) cholesterol measurement 17 mg/dL 5-40 [facility] Carbon dioxide, total [Moles /volume] in Central venous bloodOrdered By: Trang Carr on 03-23-2025 CO2 [Moles/Vol] 25.2 mmol/L 21.0-32.0 [facility] Chloride assayOrdered By: Gayla Carr on 03-23-2025 Chloride [Moles/Vol] 103 mmol/L 98-108 [facility] Comprehensive Metabolic Prof ilon 03-23-2025 Albumin [Mass/Vol] 4.3 g/dL Normal 3.4-4.8 [facility] Comment on above: Performed By: #### L 506.1001, L500.4050, L100.0100, L3410.0800, L500.4100 #### [facility] [address] [place], [address] Albumin/Globulin [Mass ratio] 1.6 {ratio} Normal 0.9-2.4 [facility] Comment on above: Performed By: #### L 506.1001, L500.4050, L100.0100, L3410.0800, L500.4100 #### [facility] [address] [place], [address] ALK PHOS 72 U/L Normal 35-104 [facility] Comment on above: Performed By: #### L 506.1001, L500.4050, L100.0100, L3410.0800, L500.4100 #### [facility] [address] [place], [address] ALT [Catalytic activity/Vol] 16 U/L Normal <=34 [facility] Comment on above: Performed By: #### L 506.1001, L500.4050, L100.0100, L3410.0800, L500.4100 #### [facility] [address] [place], [address] AST [Catalytic activity/Vol] 21 U/L Normal <=31 [facility] Comment on above: Performed By: #### L 506.1001, L500.4050, L100.0100, L3410.0800, L500.4100 #### [facility] [address] [place], [address] Bilirubin [Mass/Vol] 0.41 mg/dL Normal 0.00-1.30 [facility] Comment on above: Performed By: #### L 506.1001, L500.4050, L100.0100, L3410.0800, L500.4100 #### [facility] [address] [place], [address] BUN/CRE 18.9 RATIO Normal 10-20 [facility] Comment on above: Performed By: #### L 506.1001, L500.4050, L100.0100, L3410.0800, L500.4100 #### [facility] [address] [place], [address] Calcium [Mass/Vol] 9.7 mg/dL Normal 7.6-11.0 [facility] Comment on above: Performed By: #### L 506.1001, L500.4050, L100.0100, L3410.0800, L500.4100 #### [facility] [address] [place], [address] Chloride [Moles/Vol] 103 mmol/L Normal 98-108 [facility] Comment on above: Performed By: #### L 506.1001, L500.4050, L100.0100, L3410.0800, L500.4100 #### [facility] [address] [place], [address] CO2 [Moles/Vol] 25.2 mmol/L Normal 21.0-32.0 [facility] Comment on above: Performed By: #### L 506.1001, L500.4050, L100.0100, L3410.0800, L500.4100 #### [facility] [address] [place], [address] Creatinine [Mass/Vol] 0.68 mg/dL Low 0.70-1.20 [facility] Comment on above: Performed By: #### L 506.1001, L500.4050, L100.0100, L3410.0800, L500.4100 #### [facility] [address] [place], [address] GAP 12 Normal 5-15 [facility] Comment on above: Performed By: #### L 506.1001, L500.4050, L100.0100, L3410.0800, L500.4100 #### [facility] [address] [place], [address] GFR/1.73 sq M.predicted among non-blacks MDRD (S/P/Bld) [Vol rate/Area] 91 mL/min/{1.73_m2} Normal >60 [facility] Comment on above: Result Comment: mL/m in/1.73m2 CKD-EPI Creatinine Equation (2020) Performed By: #### L 506.1001, L500.4050, L100.0100, L3410.0800, L500.4100 #### [facility] [address] [place], [address] Globulin (S) [Mass/Vol] 2.7 g/dL Normal 2.2-4.2 [facility] Comment on above: Performed By: #### L 506.1001, L500.4050, L100.0100, L3410.0800, L500.4100 #### [facility] [address] [place], [address] Glucose [Mass/Vol] 99 mg/dL Normal 70-99 [facility] Comment on above: Performed By: #### L 506.1001, L500.4050, L100.0100, L3410.0800, L500.4100 #### [facility] [address] [place], [address] Potassium [Moles/Vol] 4.0 mmol/L Normal 3.3-5.1 [facility] Comment on above: Performed By: #### L 506.1001, L500.4050, L100.0100, L3410.0800, L500.4100 #### [facility] [address] [place], [address] Sodium [Moles/Vol] 140 mmol/L Normal 133-145 [facility] Comment on above: Performed By: #### L 506.1001, L500.4050, L100.0100, L3410.0800, L500.4100 #### [facility] [address] [place], [address] T PROT 7.0 g/dL Normal 5.9-8.4 [facility] Comment on above: Performed By: #### L 506.1001, L500.4050, L100.0100, L3410.0800, L500.4100 #### [facility] [address] [place], [address] Urea nitrogen [Mass/Vol] 13 mg/dL Normal 4-19 [facility] Comment on above: Performed By: #### L 506.1001, L500.4050, L100.0100, L3410.0800, L500.4100 #### [facility] [address] [place], [address] Eosinophil percentageOrdered By: Trang Carr on 03-23-2025 Eosinophils/100 WBC (Bld) 1.7 % 0-5 [facility] Erythrocyte distribution wid th ratioOrdered By: Trang Carr on 03-23-2025 Erythrocyte distribution width (RBC) [Ratio] 13.0 % 11.6-14.6 [facility] Erythrocyte distribution wid th standard deviationOrdered By: Trang Carr on 03-23-2025 Erythrocyte distribution width (RBC) [Ratio] 45.3 fl High 35.1-43.9 [facility] Glomerular filtration rate ( GFR) estimation/1.73 sq m using serum, plasma, or whole bOrdered By: Trang Carr on 03-23-2025 GFR/1.73 sq M.predicted among non-blacks MDRD (S/P/Bld) [Vol rate/Area] 91 mL/min/{1.73_m2} >60 [facility] Comment on above: mL/min/1.73m2 CKD-EP I Creatinine Equation (2020) Hematocrit Auto (Bld) [Volum e fraction]Ordered By: Trang Carr on 03-23-2025 Hematocrit (Bld) [Volume fraction] 39.7 % 37-47 [facility] Hemoglobin measurementOrdere d By: Trang Carr on 03-23-2025 Hemoglobin (Bld) [Mass/Vol] 12.7 g/dL 12.0-15.0 [facility] Immature granulocytes/100 WB C Auto (Bld)Ordered By: Trang Carr on 03-23-2025 Immature granulocytes/100 WBC (Bld) 0.200 % 0.0-0.9 [facility] Comment on above: IG% - Immature Granu locytes (promyelocytes, myelocytes and metamyelocytes) > 1% indicates that a LEFT SHIFT is Present. LDL calc ser/plasOrdered By: Trang Carr on 03-23-2025 Cholesterol in LDL [Mass/Vol] 53 mg/dL [facility] Comment on above: Klbvcpajyr=905-027 m g/dL & Higher Yzjs=327 mg/dL or greaterFriedwald Equation for LDL-C Laboratory - Chemistry and C hemistry - challengeOrdered By: Trang Carr on 03-23-2025 AST [Catalytic activity/Vol] 21 U/L <32 [facility] Lipid Profileon 03-23-2025 CHOL:HDL 1.87 Normal [facility] Comment on above: Performed By: #### L 506.1001, L500.4050, L100.0100, L3410.0800, L500.4100 #### [facility] [address] [place], [address] Cholesterol [Mass/Vol] 149 mg/dL Normal <=200 [facility] Comment on above: Result Comment: Chol esterol level, Desirable <200 mg/dL Borderline high cholesterol 200-239 mg/dL High cholesterol >=240 mg/dL Recommendations of the NCEP Adult Treatment Panel for the following risk-cutoff thresholds for the [place] population. Performed By: #### L 506.1001, L500.4050, L100.0100, L3410.0800, L500.4100 #### [facility] [address] [place], [address] Cholesterol in HDL [Mass/Vol] 80 mg/dL Normal [facility] Comment on above: Result Comment: Dayanara onal Cholesterol Education Program (NCEP) guidelines: <40 mg/dL: Low HDL-cholesterol (major risk factor for CHD) >= 60 mg/dL: High HDL-cholesterol (negative risk factor for CHD) HDL-cholesterol is affected by a number of factors, e.g. smoking, exercise, hormones, sex and age. Performed By: #### L 506.1001, L500.4050, L100.0100, L3410.0800, L500.4100 #### [facility] [address] [place], [address] Cholesterol in LDL [Mass/Vol] 53 mg/dL Normal [facility] Comment on above: Result Comment: Bord jtbaco=463-970 mg/dL Higher Zpuv=988 mg/dL or greater Friedwald Equation for LDL-C Performed By: #### L 506.1001, L500.4050, L100.0100, L3410.0800, L500.4100 #### [facility] [address] [place], [address] Cholesterol in VLDL [Mass/Vol] 17 mg/dL Normal 5-40 [facility] Comment on above: Performed By: #### L 506.1001, L500.4050, L100.0100, L3410.0800, L500.4100 #### [facility] [address] [place], [place], [address] Triglyceride [Mass/Vol] 83 mg/dL Normal [facility] Comment on above: Result Comment: The drugs N-Acetylcysteine and Metamizole may falsely depress this assay. Normal range: <150 mg/dL Borderline High: 150-199 mg/dL High: 200-499 mg/dL Very High: >500 mg/dL Performed By: #### L 506.1001, L500.4050, L100.0100, L3410.0800, L500.4100 #### [facility] [address] [facility] [address] [place], [place], [address] MCV (mean corpuscular volume ) determinationOrdered By: Trang Carr on 03-23-2025 MCV (RBC) [Entitic vol] 95.4 fL 81-99 [facility] Mean corpuscular hemoglobin (MCH) determinationOrdered By: Trang Carr on 03-23-2025 MCH (RBC) [Entitic mass] 30.5 pg 27.0-32.0 [facility] Mean corpuscular hemoglobin concentration (MCHC) determinationOrdered By: Trang Carr on 03-23-2025 MCHC (RBC) [Mass/Vol] 32.0 g/dL 32-36 [facility] Mean platelet volume determi nationOrdered By: Trang Carr on 03-23-2025 Platelet mean volume (Bld) [Entitic vol] 11.1 fL 6.2-12.0 [facility] Monocyte percentageOrdered B y: Trang Carr on 03-23-2025 Monocytes/100 WBC (Bld) 8.3 % 0-10 [facility] Neutrophil percentageOrdered By: Trang Carr on 03-23-2025 Neutrophils/100 WBC (Bld) 63.1 % 47-70 [facility] Nucleated red blood cell per centageOrdered By: Trang Carr on 03-23-2025 Nucleated RBC/100 WBC (Bld) [Ratio] 0 % 0-5 [facility] Platelet countOrdered By: Gayla Carr on 03-23-2025 Platelets (Bld) [#/Vol] 241 10*3/uL 150-450 [facility] Potassium measurement (mass/ volume)Ordered By: Trang Carr on 03-23-2025 Potassium (Unsp spec) [Mass/Vol] 4.0 mmol/L 3.3-5.1 [facility] RBC Auto (Bld) [#/Vol]Ordere d By: Trang Carr on 03-23-2025 RBC (Bld) [#/Vol] 4.16 10*6/uL Low 4.2-5.4 [facility] Screening total cholesterol/ high density lipoprotein (HDL) cholesterol ratioOrdered By: Trang Carr on 03-23-2025 Cholesterol.total/Mila sterol in HDL [Mass ratio] 1.87 {ratio} [facility] Serum creatinine measurement (mass/volume)Ordered By: Trang Carr on 03-23-2025 Creatinine [Mass/Vol] 0.68 mg/dL Low 0.70-1.20 [facility] Serum globulin measurementOr dered By: Trang Carr on 03-23-2025 Globulin (S) [Mass/Vol] 2.7 g/dL 2.2-4.2 [facility] Serum glucose measurement (m ass/volume)Ordered By: Trang Carr on 03-23-2025 Glucose [Mass/Vol] 99 mg/dL 70-99 [facility] Serum histone antibody assay (units/volume)Ordered By: Trang Carr on 03-23-2025 Histone Ab Qn (S) 2.3 Units High 0.0-0.9 [facility] Comment on above: Negative <1.0 Weak P ositive 1.0 - 1.5 Moderate Positive 1.6 - 2.5 Strong Positive >2.5Performed at: [facility] - [facility] [address] [id number] Director: Amaya Ingram MD, Phone: [phone] Serum or plasma alanine pompa otransferase (ALT) measurementOrdered By: Trang Carr on 03-23-2025 ALT [Catalytic activity/Vol] 16 U/L <35 [facility] Serum or plasma albumin charley urement (mass/volume)Ordered By: Trang Carr on 03-23-2025 Albumin [Mass/Vol] 4.3 g/dL 3.4-4.8 [facility] Serum or plasma albumin/glob ulin mass ratioOrdered By: Trang Carr on 03-23-2025 Albumin/Globulin [Mass ratio] 1.6 {ratio} 0.9-2.4 [facility] Serum or plasma alkaline thai sphatase measurementOrdered By: Trang Carr on 03-23-2025 ALP [Catalytic activity/Vol] 72 U/L 35-104 [facility] Serum or plasma calcium charley urement (mass/volume)Ordered By: Trang Carr on 03-23-2025 Calcium [Mass/Vol] 9.7 mg/dL 7.6-11.0 [facility] Serum or plasma cholesterol in HDL measurement (mass/volume)Ordered By: Trang Carr on 03-23-2025 Cholesterol in HDL [Mass/Vol] 80 mg/dL >40 [facility] Comment on above: National Cholesterol Education Program (NCEP) guidelines:<40 mg/dL: Low HDL-cholesterol (major risk factor for CHD)>= 60 mg/dL: High HDL-cholesterol (negative risk factor for CHD)HDL-cholesterol is affected by a number of factors, e.g. smoking, exercise, hormones, sex and age. Serum or plasma cholesterol measurement (mass/volume)Ordered By: Trang Carr on 03-23-2025 Cholesterol [Mass/Vol] 149 mg/dL <201 [facility] Comment on above: Cholesterol level, D esirable <200 mg/dLBorderline high cholesterol 200-239 mg/dLHigh cholesterol >=240 mg/dLRecommendations of the NCEP Adult Treatment Panel for the following risk-cutoff thresholds for the [place] population. Serum or plasma urea nitroge n measurement (mass/volume)Ordered By: Trang Carr on 03-23-2025 Urea nitrogen [Mass/Vol] 13 mg/dL 4-19 [facility] Sodium levelOrdered By: Antonio Carr on 03-23-2025 Sodium [Moles/Vol] 140 mmol/L 133-145 [facility] Total proteinOrdered By: Jeannine Carr on 03-23-2025 Protein [Mass/Vol] 7.0 g/dL 5.9-8.4 [facility] Triglycerides measurementOrd ered By: Trang Carr on 03-23-2025 Triglyceride [Mass/Vol] 83 mg/dL <199 [facility] Comment on above: The drugs N-Acetylcy steine and Metamizole may falsely depress this assay. Normal range: <150 mg/dLBorderline High: 150-199 mg/dLHigh: 200-499 mg/dLVery High: >500 mg/dL Vitamin D,25 Hydroxyon 03-23 Vitamin D 25-OH 62.5 ng/mL Normal 30-100 [facility] Comment on above: Result Comment: Emily min D Status Deficiency: <20 ng/mL (50nmol/L) Insufficiency: 20-30 ng/mL (50-75 nmol/L) Sufficiency: 30-100 ng/mL (75-250 nmol/L) Toxicity: >100 ng/mL (>250 nmol/L) Performed By: #### L 506.1001, L500.4050, L100.0100, L3410.0800, L500.4100 ####[facility] [address] [place], [address] White blood cell (WBC) count Ordered By: Trang Carr on 03-23-2025 WBC (Bld) [#/Vol] 4.8 10*3/uL 4.4-11.0 [facility] Soft Tissue Neck WITH Contra ston 03-10-2025 Soft Tissue Neck WITH Contrast [facility] Imaging Services [address] [place] [address] Soft Tissue Neck WITH Contrast MR#: [id number] Acct: [id number] Name: CHINMAY GRIMALDO Rep #: [id number] : 1950 F 74 From: Nixon gonsalves MD PCP: Dr. Trang Carr MD Status: REG CLI Study: Soft Tissue Neck WITH Contrast Date of Exam: 0 03/10/25 Exam# [id number] Ordering Dr: Trang Carr MD PROCEDURE: SOFT [...] No acute abnormality is seen. Reading Location: [facility] CC: Dr. Trang Carr MD; Dr. Pb Corrales MD [employer] T[employer]: Signed Normal [facility] Magnetic resonance imaging r eportOrdered By: Carrillo Crowe on 02-11-2025 Study report [facility] Imaging Services [address] [place] [address] Orbit Face Neck W/WO Contrast MR#: [id number] Acct: [id number] Name: CHINMAY GRIMALDO Rep #: [id number] : 1950 F 74 From: Cyrus Crowe MD PCP: Dr. Trang Carr MD Status: REG CL I Study:Orbit Face Neck W/WO Contrast Date of E xam: 02/10/25 Exam# [id number] Ordering Dr: Jeannine Carr MD EXAM: MRI [...] be the study of choice Reading [facility] CC: Dr. Trang Carr MD ~ [employer]: Signed [facility] Orbit Face Neck W/WO Contras ton 02-10-2025 Orbit Face Neck W/WO Contrast [facility] Imaging Services [address] [place] [id number] Orbit Face Neck W/WO Contrast MR#: [id number] Acct: [id number] Name: CHINMAY GRIMALDO Rep #: [id number] : 1950 F 74 From: Carrillo Crowe MD PCP: Dr. Trang Carr MD Status: REG CLI Study: Orbit Face Neck W/WO Contrast Date of Exam: Exam# [id number] Ordering Dr: Trang Carr MD EXAM: MRI [...] be the study of choice Reading Location: [facility] CC: Dr. Trang Carr MD [employer]: Signed Normal [facility] ANTINUCLEAR ANTIBODIES DIREC Ton 01-22-2025 JUJU,DIRECT Negative Normal Negative [facility] Comment on above: Result Comment: Perf ormed at: - [facility] [id number] Estate Attorney: Sergio Tovar PhD, Phone: [phone] Performed at: - [facility] [address] [id number] Estate Attorney: Amaya Ingram MD, Phone: [phone] Performed By: #### L 3410.0871, L3100.9100, L505.7010, L4500.0100, [id number] ####[facility] [address] [place], [address] Anti-Histone Abson ANTI-HISTONE AB 2.6 Units High 0.0-0.9 [facility] Comment on above: Result Comment: Nega tive <1.0 Weak Positive 1.0 - 1.5 Moderate Positive 1.6 - 2.5 Strong Positive >2.5 Performed By: #### M 100.2200 #### [facility] [address] [place], [address] Lupus Anticoagulant Compon 0 01-22-2025 aPTT Coag (Bld) [Time] 37.6 s Normal 0.0-43.5 [facility] Comment on above: Performed By: #### M 100.2200 #### [facility] [address] [place], [address] DILUTE PT (dPT) 42.6 sec Normal 0.0-47.6 [facility] Comment on above: Performed By: #### M 100.2200 #### [facility] [address] [place], [address] dPT Conf. Ratio 1.13 Ratio Normal 0.00-1.34 [facility] Comment on above: Performed By: #### M 100.2200 #### [facility] [address] [place], [address] DRVVT 40.8 sec Normal 0.0-47.0 [facility] Comment on above: Performed By: #### M 100.2200 #### [facility] [address] [place], [place], [address] Interpretation Comment: Normal . [facility] Comment on above: Result Comment: No l upus anticoagulant was detected. Performed at: [address] [id number] Estate Attorney: Amaya Ingram MD, Phone: [phone] Performed By: #### M 100.2200 #### [facility] [address] [place], [place], [address] THROMBIN TIME 19.1 sec Normal 0.0-23.0 [facility] Comment on above: Performed By: #### M 100.2200 #### [facility] [address] [place], [address] Sjogren's Antibodies A/Bon 0 - ANTI-SS-A < 0.2 Normal 0.0-0.9 [facility] Comment on above: Performed By: #### M 100.2200 #### [facility] [address] [place], [place], [address] ANTI-SS-B < 0.2 Normal 0.0-0.9 [facility] Comment on above: Performed By: #### M 100.2200 #### [facility] [address] [place], [address] Dilute Oscar's viper venom timeOrdered By: Trang Lilly on 01-19-2025 dRVVT Coag (PPP) [Time] 40.8 s 0.0-47.0 [facility] Rheumatoid Factoron 01-20-20 25 RHEUMATOID FAC < 10.0 Normal <15 [facility] Comment on above: Performed By: #### L 3410.0800, L3100.9100, L505.7010, L4500.0100, L3100.5475 ####[facility] [address] [place], [address] Serum histone antibody assay (units/volume)Ordered By: Antonioreza Carr on 01-19-2025 Histone Ab Qn (S) 2.6 Units High 0.0-0.9 [facility] Comment on above: Negative <1.0 Weak P ositive 1.0 - 1.5 Moderate Positive 1.6 - 2.5 Strong Positive >2.5 Serum rheumatoid factor dete ctionOrdered By: Trang Carr on 01-19-2025 Rheumatoid factor Ql (S) < 10.0 IU/mL <15 [facility] Thrombin timeOrdered By: Jeannine Carr on 01-19-2025 Thrombin time Coag (PPP) [Time] 19.1 sec 0.0-23.0 [facility] EBV Acute Prof IgG / IgMon 0 01-18-2025 EB Ab VCA, IgG 233.0 U/mL High 0.0-17.9 [facility] Comment on above: Order Comment: PLEDESTINI E USE EXTRA BLOOD DRAWN 01/13/25 FOR ADD ON TESTING Result Comment: Nega tive <18.0 Equivocal 18.0 - 21.9 Positive >21.9 Performed By: #### L 3100.5850, L501.6710, L101.9900, L3200.1275 ####[facility] [address] [place], [address] EBV Ab VCA, IgM < 36.0 Normal 0.0-35.9 [facility] Comment on above: Order Comment: PLEAS E USE EXTRA BLOOD DRAWN 01/13/25 FOR ADD ON TESTING Result Comment: Nega tive <36.0 Equivocal 36.0 - 43.9 Positive >43.9 Performed By: #### L 3100.5850, L501.6710, L101.9900, L3200.1275 ####[facility] [address] [place], [place], [address] EBV NuAg Ab,IgG < 18.0 Normal 0.0-17.9 [facility] Comment on above: Order Comment: PLEAS E USE EXTRA BLOOD DRAWN 01/13/25 FOR ADD ON TESTING Result Comment: Nega tive <18.0 Equivocal 18.0 - 21.9 Positive >21.9 Performed By: #### L 3100.5850, L501.6710, L101.9900, L3200.1275 ####[facility] [address] [place], [place], [address] INTERPRETATION Comment Normal . [facility] Comment on above: Order Comment: PLEAS [...] never develop antibodies to EBNA. Performed at: [address] [id number] Estate Attorney: Sergio Tovar PhD, Phone: [phone] Performed By: #### L 3100.5850, L501.6710, L101.9900, L3200.1275 ####[facility] [address] [place], [place], [address] Immunofixation, Serumon MI RESULT,S Comment Normal . [facility] Comment on above: Order Comment: PLEAS E USE EXTRA BLOOD DRAWN 01/13/25 FOR ADD ON TESTING Result Comment: No m onoclonality detected. Performed By: #### L 3100.5850, L501.6710, L101.9900, L3200.1275 ####[facility] [address] [place], [address] IMMUNOGLOB A QN 173 mg/dL Normal 64-422 [facility] Comment on above: Order Comment: PLEAS E USE EXTRA BLOOD DRAWN 01/13/25 FOR ADD ON TESTING Performed By: #### L 3100.5850, L501.6710, L101.9900, L3200.1275 ####[facility] [address] [place], [address] IMMUNOGLOB G QN 811 mg/dL Normal 586-1602 [facility] Comment on above: Order Comment: PLEAS E USE EXTRA BLOOD DRAWN 01/13/25 FOR ADD ON TESTING Performed By: #### L 3100.5850, L501.6710, L101.9900, L3200.1275 ####[facility] [address] [place], [address] IMMUNOGLOB M QN 140 mg/dL Normal 26-217 [facility] Comment on above: Order Comment: PLEAS E USE EXTRA BLOOD DRAWN 01/13/25 FOR ADD ON TESTING Performed By: #### L 3100.5850, L501.6710, L101.9900, L3200.1275 ####[facility] [address] [place], [address] Lyme Screen W/Reflex WBon LYME SCREEN Ab Negative Normal Negative [facility] Comment on above: Result Comment: Lyme [...] to 14 days is recommended. Performed at: [facility] [address], [place] [id number] Estate Attorney: Sergio Tovar PhD, Phone: [phone] Performed By: #### L 7000.5300 ####[facility] [address] [place], [place], [address] CRPon 01-14-2025 C-REACTIVE PROT < 3.00 Normal 0.0-3.0 [facility] Comment on above: Order Comment: SHERRI USE EXTRA BLOOD DRAWN 01/13/25 FOR ADD ON TESTING Performed By: #### L 3100.5850, L501.6710, L101.9900, L3200.1275 ####[facility] [address] [place], [place], [address] Erythrocyte Sed Rateon 01-14 SED RATE 6 mm/hr Normal 0-30 [facility] Comment on above: Order Comment: SHERRI USE EXTRA BLOOD DRAWN 01/13/25 FOR ADD ON TESTING Performed By: #### L 3100.5850, L501.6710, L101.9900, L3200.1275 ####[facility] [address] [place], [place], [address] Breast imaging reportOrdered By: Vandana Osborn on 01-13-2025 Study report [facility] Imaging Services [address] [facility] [place], [place] [address] SCRN MAMM (CAD)W/ELSIE BILAT MR#: [id number] Acct: [id number] Name: CHINMAY GRIMALDO Rep #: [id number] : 1950 F 74 From: Mi Osborn MD PCP: Dr. Trang Carr MD Status: REG CL I Study:SCRN MAMM (CAD)W/ELSIE BILAT Date of Exa m: 01/13/25 Exam# [id number] Ordering Dr: Jeannine Carr MD EXAM: SCRN [...] be mailed to the patient. Reading Location: [facility] CC: Dr. Trang Carr MD ~ [employer] T[employer]: Signed [facility] Erythrocyte sedimentation ra teOrdered By: Trang Carr on 01-13-2025 ESR (Bld) [Velocity] 6 mm/h 0-30 [facility] SCRN MAMM (CAD)W/ELSIE BILATo n 01-13-2025 SCRN MAMM (CAD)W/ELSIE BILAT [facility] Imaging Services [address] [place], [place] [address] SCRN MAMM (CAD)W/ELSIE BILAT MR#: [id number] Acct: [id number] Name: CHINMAY GRIMALDO Rep #: [id number] : 1950 F 74 From: Vandana Osborn MD PCP: Dr. Trang Carr MD Status: REG CLI Study: SCRN MAMM (CAD)W/ELSIE BILAT Date of Exam: 12/04 Exam# [id number] Ordering Dr: Trang Carr MD EXAM: SCRN [...] be mailed to the patient. Reading Location: [facility] CC: Dr. Trang Carr MD [employer] T[employer]: Signed Normal [facility] Serum Aquilino Welch virus cap desiree IgM antibody assay (units/volume)Ordered By: Trang Carr on 01-13-2025 EBV capsid IgM Qn (S) [arb'U]/mL 0.0-35.9 [facility] Comment on above: Negative <36.0 Equiv ocal 36.0 - 43.9 Positive >43.9 Serum Aquilino Welch virus nuc lear IgG antibody assay (units/volume)Ordered By: Trang Carr on 01-13-2025 EBV nuclear IgG Qn (S) < 18.0 U/mL 0.0-17.9 [facility] Comment on above: Negative <18.0 Equiv ocal 18.0 - 21.9 Positive >21.9 Serum or plasma C reactive p rotein measurement (mass/volume)Ordered By: Trang Carr on 01-13-2025 CRP [Mass/Vol] mg/L 0.0-3.0 [facility] Serum or plasma IgA measurem ent (mass/volume)Ordered By: Trang Carr on 01-13-2025 IgA [Mass/Vol] 173 mg/dL 64-422 [facility] Serum or plasma IgG measurem ent (mass/volume)Ordered By: Trang Carr on 01-13-2025 IgG [Mass/Vol] 811 mg/dL 586-1602 [facility] Culture, Throaton 12-06-2024 CUT Normal throat jeanine isolated. No beta-hemolytic streptococcus isolated. Normal [facility] Comment on above: Performed By: #### M 100.1000 #### [facility] [address] [place], [address] Throat specimen bacteria edith ntification by cultureOrdered By: Pb Corrales on 12-04-2024 Bacteria identified Cx Nom (Throat) streptococcus isolated. [facility] CBC WITH AUTO DIFFERENTIALon 11-28-2024 AUTO NRBC 0.0 % Normal [facility] Comment on above: Performed By: #### L [id number] #### LAB [address] [place] [address] Олег Wheeler M.D. [id number] AUTO NRBC ABS COUNT 0.00 K/mcL Normal 0.00-0.00 [facility] Comment on above: Performed By: #### L [id number] #### [facility] [address] [address] Олег Wheeler M.D. [id number] BASOPHILS ABSOLUTE COUNT 0.03 K/mcL Normal 0.00-0.30 [facility] Comment on above: Performed By: #### L [id number] #### [facility] [address] [address] Олег Wheeler M.D. [id number] Basophils/100 WBC (Bld) 0.6 % Normal [facility] Comment on above: Performed By: #### L [id number] #### LAB [address] [address] Олег Wheeler M.D. [id number] Eosinophils (Bld) [#/Vol] 0.09 10*3/uL Normal 0.00-0.50 [facility] Comment on above: Performed By: #### L [id number] #### LAB [address] [place] [address] Олег Wheeler M.D. [id number] Eosinophils/100 WBC (Bld) 1.7 % [facility] Comment on above: Performed By: #### L [id number] #### LAB [address] [address] Олег Wheeler M.D. [id number] Erythrocyte distribution width (RBC) [Ratio] 13.2 % Normal 11.6-14.8 [facility] Comment on above: Performed By: #### L [id number] #### LAB [address] [address] Олег Wheeler M.D. [id number] Hematocrit (Bld) [Volume fraction] 42.6 % Normal 36.0-46.0 [facility] Comment on above: Performed By: #### L [id number] #### LAB [address] [address] Олег Wheeler M.D. [id number] Hemoglobin (Bld) [Mass/Vol] 13.6 g/dL Normal 12.0-16.0 [facility] Comment on above: Performed By: #### L [id number] #### LAB [address] [place] [address] Олег Wheeler M.D. [id number] IG ABSOLUTE 0.02 K/mcL Normal 0.00-0.30 [facility] Comment on above: Performed By: #### L [id number] #### LAB [address] [place] [address] Олег Wheeler M.D. [id number] IG PERCENT 0.40 % Normal [facility] Comment on above: Result Comment: The IG parameter is the percentage of metamyelocytes, myelocytes and promyelocytes. An immature granulocyte count (IG) of 1% or more suggests the possibility of infection, an IG count of 3% is very likely related to an infection. Performed By: #### L [id number] #### LAB [address] [place] [address] Олег Wheeler M.D. [id number] Lymphocytes (Bld) [#/Vol] 1.54 10*3/uL Normal 0.90-4.00 [facility] Comment on above: Performed By: #### L [id number] #### LAB [address] [address] Олег Wheeler M.D. [id number] Lymphocytes/100 WBC (Bld) 29.5 % Normal [facility] Comment on above: Performed By: #### L [id number] #### LAB [address] [address] Олег Wheeler M.D. [id number] MCH (RBC) [Entitic mass] 29.9 pg Normal 26.0-34.0 [facility] Comment on above: Performed By: #### L [id number] #### LAB [address] [address] Олег Wheeler M.D. [id number] MCV (RBC) [Entitic vol] 93.6 fL Normal 80.0-100.0 [facility] Comment on above: Performed By: #### L [id number] #### LAB [address] [address] Олег Wheeler M.D. [id number] MEAN CORPUSCULAR HEMOGLOBIN CONC 31.9 g/dL Normal 31.0-37.0 [facility] Comment on above: Performed By: #### L [id number] #### LAB [address] [address] Олег Wheeler M.D. [id number] Monocytes (Bld) [#/Vol] 0.41 10*3/uL Normal 0.30-0.90 [facility] Comment on above: Performed By: #### L [id number] #### LAB [address] [address] Олег Wheeler M.D. [id number] Monocytes/100 WBC (Bld) 7.9 % Normal [facility] Comment on above: Performed By: #### L [id number] #### LAB [address] [address] Олег Wheeler M.D. [id number] NEUTROPHILS ABSOLUTE COUNT 3.13 K/mcL Normal 1.70-7.00 [facility] Comment on above: Performed By: #### L [id number] #### [facility] [address] [address] Олег Wheeler M.D. [id number] Neutrophils/100 WBC (Bld) 59.9 % Normal [facility] Comment on above: Performed By: #### L [id number] #### [facility] [address] [address] Олег Wheeler M.D. [id number] Platelet mean volume (Bld) [Entitic vol] 10.2 fL Normal 9.4-12.4 [facility] Comment on above: Performed By: #### L [id number] #### [facility] [address] [id number] Олег Wheeler M.D. [id number] Platelets (Bld) [#/Vol] 241 10*3/uL Normal 150-400 [facility] Comment on above: Performed By: #### L [id number] #### [facility] [address] [address] Олег Wheeler M.D. [id number] RBC (Bld) [#/Vol] 4.55 10*6/uL Normal 4.00-5.20 [facility] Comment on above: Performed By: #### L [id number] #### [facility] [address] [address] Олег Wheeler M.D. [id number] WBC (Bld) [#/Vol] 5.22 10*3/uL Normal 4.50-11.00 [facility] Comment on above: Performed By: #### L [id number] #### [facility] [address] [address] Олег Wheeler M.D. [id number] COMPREHENSIVE METABOLIC PANE Thaddeus 11-28-2024 Albumin [Mass/Vol] 4.4 g/dL Normal 3.2-5.2 [facility] Comment on above: Order Comment: [facility] has implemented the eGFR calculation approach that does not have a coefficient for race that conforms to the NKF-ASN Task Force Recommendations. Performed By: #### 4 6126 ####[facility] [address] [address] Олег Wheeler M.D. [id number] ALP [Catalytic activity/Vol] 70 U/L Normal 40-150 [facility] Comment on above: Order Comment: [facility] has implemented the eGFR calculation approach that does not have a coefficient for race that conforms to the NKF-ASN Task Force Recommendations. Performed By: #### 4 6126 #### LAB [address] [address] Олег Wheeler M.D. [id number] ALT [Catalytic activity/Vol] 16 U/L Normal 0-35 U/L [facility] Comment on above: Order Comment: [facility] has implemented the eGFR calculation approach that does not have a coefficient for race that conforms to the NKF-ASN Task Force Recommendations. Performed By: #### 4 6126 #### LAB [address] [address] Олег Wheeler M.D. [id number] Anion gap [Moles/Vol] 16 mmol/L Normal 10-20 [facility] Comment on above: Order Comment: [facility] has implemented the eGFR calculation approach that does not have a coefficient for race that conforms to the NKF-ASN Task Force Recommendations. Performed By: #### 4 6126 #### LAB [address] [address] Олег Wheeler M.D. [id number] AST [Catalytic activity/Vol] 19 U/L Normal 0-35 U/L [facility] Comment on above: Order Comment: [facility] has implemented the eGFR calculation approach that does not have a coefficient for race that conforms to the NKF-ASN Task Force Recommendations. Performed By: #### 4 6126 #### LAB [address] [address] Олег Wheeler M.D. [id number] Bilirubin [Mass/Vol] 0.3 mg/dL Normal 0.0-1.3 [facility] Comment on above: Order Comment: [facility] has implemented the eGFR calculation approach that does not have a coefficient for race that conforms to the NKF-ASN Task Force Recommendations. Performed By: #### 4 6126 #### LAB [address] [address] Олег Wheeler M.D. [id number] Calcium [Mass/Vol] 9.9 mg/dL Normal 8.4-10.2 [facility] Comment on above: Order Comment: [facility] has implemented the eGFR calculation approach that does not have a coefficient for race that conforms to the NKF-ASN Task Force Recommendations. Performed By: #### 4 6126 #### LAB [address] [address] Олег Wheeler M.D. [id number] Chloride [Moles/Vol] 103 mmol/L Normal 98-108 [facility] Comment on above: Order Comment: [facility] has implemented the eGFR calculation approach that does not have a coefficient for race that conforms to the NKF-ASN Task Force Recommendations. Performed By: #### 4 6126 #### LAB [address] [address] Олег Wheeler M.D. [id number] Creatinine [Mass/Vol] 0.77 mg/dL Normal 0.60-1.10 [facility] Comment on above: Order Comment: [facility] has implemented the eGFR calculation approach that does not have a coefficient for race that conforms to the NKF-ASN Task Force Recommendations. Performed By: #### 4 6126 #### LAB [address] [address] Олег Wheeler M.D. [id number] EGFR 82 mL/min/1.73 m2 Normal >=60 [facility] Comment on above: Order Comment: [facility] has implemented the eGFR calculation approach that does not have a coefficient for race that conforms to the NKF-ASN Task Force Recommendations. Result Comment: Jyothi mated GFR was calculated using the 2020 CKD-EPI creatinine equation. Performed By: #### 4 6126 #### [facility] [address] [address] Олег Wheeler M.D. [id number] Glucose [Mass/Vol] 114 mg/dL High 65-99 [facility] Comment on above: Order Comment: [facility] has implemented the eGFR calculation approach that does not have a coefficient for race that conforms to the NKF-ASN Task Force Recommendations. Performed By: #### 4 6126 #### LAB [address] [address] Олег Wheeler M.D. [id number] HCO3 (Bld) [Moles/Vol] 26 mmol/L Normal 21-32 [facility] Comment on above: Order Comment: [facility] has implemented the eGFR calculation approach that does not have a coefficient for race that conforms to the NKF-ASN Task Force Recommendations. Performed By: #### 4 6126 ####[facility] [address] [address] Олег Wheeler M.D. [id number] Potassium [Moles/Vol] 3.9 mmol/L Normal 3.5-5.1 [facility] Comment on above: Order Comment: [facility] has implemented the eGFR calculation approach that does not have a coefficient for race that conforms to the NKF-ASN Task Force Recommendations. Performed By: #### 4 [id number] #### LAB [address] [address] Олег Wheeler M.D. [id number] Protein [Mass/Vol] 6.6 g/dL Normal 6.0-8.0 [facility] Comment on above: Order Comment: [facility] has implemented the eGFR calculation approach that does not have a coefficient for race that conforms to the NKF-ASN Task Force Recommendations. Performed By: #### 4 [id number] #### LAB [address] [address] Олег Wheeler M.D. [id number] Sodium [Moles/Vol] 141 mmol/L Normal 135-145 [facility] Comment on above: Order Comment: [facility] has implemented the eGFR calculation approach that does not have a coefficient for race that conforms to the NKF-ASN Task Force Recommendations. Performed By: #### 4 [id number] #### LAB [address] [address] Олег Wheeler M.D. [id number] Urea nitrogen [Mass/Vol] 11 mg/dL Normal 8-25 [facility] Comment on above: Order Comment: [facility] has implemented the eGFR calculation approach that does not have a coefficient for race that conforms to the NKF-ASN Task Force Recommendations. Performed By: #### 4 [id number] #### LAB [address] [address] Олег Wheeler M.D. [id number] Urea nitrogen/Creatinine [Mass ratio] 14.3 mg/mg Normal 10.0-20.0 [facility] Comment on above: Order Comment: [facility] has implemented the eGFR calculation approach that does not have a coefficient for race that conforms to the NKF-ASN Task Force Recommendations. Performed By: #### 4 6126 #### LAB [address] [address] Олег Wheeler M.D. [id number] COVID-19/INFLUENZA A,B MOLEC ULARon 11-28-2024 SARS-CoV-2 (COVID-19) Ab IA Ql SARS-COV-2 (AMY) Not Detected INFLUENZA A (AMY) Not Detected INFLUENZA B (AMY) Not Detected Normal Not Detected [facility] Comment on above: Performed By: #### L [id number] #### LAB [address] [address] Олег Wheeler M.D. [id number] CT SINUSon 11-28-2024 CT SINUS EXAMINATION: CT [...] Nov 28, 2024 10:07:52 AM EDT Normal [facility] Comment on above: Order Comment: Injur y/Trauma or Illness?:Illness/Other How long have you had these symptoms (acute/chronic)?:Chronic Reason for exam?:sinus pain and pressure in face and neck, pt states swollen glands in neck, per patient cannot get into ent for another 3 weeks Type of Exam?:Initial Additional signs and symptoms?:strep and mono negative ED Prov Noteon 11-28-2024 ED Prov Note ED PROVIDER NOTE [facility] NAME: Chinmay Grimaldo AGE: 73 y.o. : 1950 VISIT DATE: 11/28/2024 CSN: [id number] PCP: Trang Carr MD Chief Complaint Patient [...] MCH 29. (more content not included)... Normal [facility] TSH WITH REFLEX FREE T4on TSH Qn 1.32 m[IU]/L Normal 0.27-4.20 [facility] Comment on above: Performed By: #### 4 6612 ####[facility] [address], [place] [address] Олег Wheeler M.D. [id number] Heterophile Ab Ql (S)Ordered By: Aroldo Cespeeds on 11-24-2024 Monoscreen Negative Negative [facility] [place] 11-24-2024 Monocytes (Bld) [#/Vol] Negative Normal Negative [facility] Comment on above: Order Comment: Order Date: 11/24/24 Order Info: [id number] - MONO Comments: tests for mono Performed By: #### L 700.5500 #### [facility] [address] [place], [address] Serum heterophile antibody d etectionOrdered By: Aroldo Cespedes on 11-24-2024 Heterophile Ab Ql (S) Negative Negative [facility] CCTA Heart (Behavioral Intervention Specialist bill acosta)on 07-31-2024 1. Total calcium score [...] Modifiers: No modifiers are present Exceptions: None Race Yourself Coronary Computed Angiography Report Patient Name: Chinmay Grimaldo Age: 73 y.o. Requesting Physician: Darian Velasco CNP Interpreting Behavioral Intervention Specialist: Tara Ash MD Primary Care Physician: Trang [...] Image Quality: Good, No significant artifacts. Scanner: Radcom Revolution DLP 123.07 mGy 72 cc [id number]. [...] SEPARATE RADIOLOGY REPORT FOR THE NONCARDIAC FINDINGS Race Yourself Radiology Study observation (narrative) [facility] (Behavioral Intervention Specialist bill acosta)Ordered By: Tara Ash on 07-31-2024 [facility] Work Phone: CT CCTA HEART (WELDING LEAD BURNER READ)on 07-31-2024 CT CCTA HEART (WELDING LEAD BURNER READ) Coronary Computed Angiography Report Patient Name: Chinmay Grimaldo Age: 73 y.o. Requesting Physician: Darian Velasco CNP Interpreting Behavioral Intervention Specialist: Tara Ash MD Primary Care Physician: Trang [...] Image Quality: Good, No significant artifacts. Scanner: Radcom Revolution DLP 123.07 mGy 72 cc Isovue-370. [...] SatJul 31, 2024 11:23:55 AM EST Normal [facility] Comment on above: Order Comment: NPO s [...] score and CTA coronary protocol was utilized. Behavioral Intervention Specialist will interpret the CT calcium score and [...] for dedicated calcium score and cardiac evaluation. [employer] Workstation ID: [id number] Dictated by: JV TOURE on SatJul 31, 2024 10:51:55 AM EST Transcribed by: RENETTA MACHUCA on SatJul 31, 2024 11:07:52 AM EST Finalized by: JV TOURE on SatJul 31, 2024 10:09:34 PM EST Normal [facility] Comment on above: Order Comment: NPO s tatus not required for this exam however caffeine should be minimized prior to exam. Injury/Trauma or Illness?:Illness/Other How long have you had these symptoms (acute/chronic)?:Acute Reason for exam?:Chest pain, supplemental read Type of Exam?:Subsequent/Follow-up Additional signs and symptoms?:. LIPID PANELon 07-31-2024 Cholesterol [Mass/Vol] 168 mg/dL Normal 100-199 [facility] Comment on above: Performed By: #### 4 6065 ####[facility] [address], [place] [address] Олег Wheeler M.D. [id number] Cholesterol in HDL [Mass/Vol] 75 mg/dL Normal 40-59 [facility] Comment on above: Performed By: #### 4 6075 ####[facility] [address], [place] [address] Олег Wheeler M.D. [id number] Cholesterol.total/Mila sterol in HDL [Mass ratio] 2.2 {ratio} Normal [facility] Comment on above: Result Comment: Fema le Cholesterol/HDL Ratio: Average risk: 4.4 1/2 average risk: 3.3 2 x average risk: 7.1 Performed By: #### 4 6087 #### LAB [address], [place] [address] Олег Wheeler M.D. [id number] LDL CHOLESTEROL CALCULATED 80 mg/dL Normal 10-130 [facility] Comment on above: Result Comment: [facility] Cholesterol Education Program Guidelines: LDL Cholesterol Optimal: <100 mg/dL Near Optimal/above Optimal: 100-129 mg/dL Borderline High: 130-159 mg/dL High: 160-189 mg/dL Very High: greater than or equal to 190 mg/dL Performed By: #### 4 6087 #### LAB [address] [address] Олег Wheeler M.D. [id number] NON HDL CHOL 93 mg/dL Normal [facility] Comment on above: Result Comment: [facility] Cholesterol Education Program Guidelines: NON HDL Cholesterol Desirable: <130 mg/dL Borderline High: 130-159 mg/dL High: 160-189 mg/dL Very High: > or = 190 mg/dL Performed By: #### 4 6087 #### LAB [address] [address] Олег Wheeler M.D. [id number] Triglyceride [Mass/Vol] 66 mg/dL Normal 30-150 [facility] Comment on above: Performed By: #### 4 6087 #### LAB [address] [address] Олег Wheeler M.D. [id number] Lipid 1996 panelon Cholesterol [Mass/Vol] 168 mg/dL 100 - 199 mg/dL [facility] Cholesterol in HDL [Mass/Vol] 75 mg/dL 40 - 59 mg/dL [facility] Cholesterol in LDL [Mass/Vol] 80 mg/dL 10 - 130 mg/dL [facility] Comment on above: National Cholesterol Education Program Guidelines: LDL Cholesterol Optimal: <100 mg/dL Near Optimal/above Optimal: 100-129 mg/dL Borderline High: 130-159 mg/dL High: 160-189 mg/dL Very High: greater than or equal to 190 mg/dL Cholesterol non HDL [Mass/Vol] 93 mg/dL [facility] Comment on above: National Cholesterol Education Program Guidelines: NON HDL Cholesterol Desirable: <130 mg/dL Borderline High: 130-159 mg/dL High: 160-189 mg/dL Very High: > or = 190 mg/dL Cholesterol.total/Mila sterol in HDL [Mass ratio] 2.2 {ratio} ratio [facility] Comment on above: Female Cholesterol/H DL Ratio: Average risk: 4.4 1/2 average risk: 3.3 2 x average risk: 7.1 Triglyceride [Mass/Vol] 66 mg/dL 30 - 150 mg/dL [facility] TROPONINon 07-31-2024 TROPONIN T DELTA CHANGE INTERPRETATION No biomarker evidence of cardiac injury. Normal [facility] Comment on above: Performed By: #### 4 6608 ####[facility] [address], [place] [address] Олег Wheeler M.D. [id number] TROPONIN T NG/L < Normal <=14 [facility] Comment on above: Performed By: #### 4 6608 #### LAB [address], [place] [address] Олег Wheeler M.D. [id number] Troponinon 07-31-2024 Interp Troponin T Delta Change No biomarker evidence of cardiac injury. [facility] Troponin T ng/L NINF - 14 ng/L [facility] BNP (NT Pro BNP)on 4 Natriuretic peptide.B prohormone N-Terminal [Mass/Vol] 89 pg/mL 0 - 300 pg/mL [facility] CBC Auto Differentialon 07-12 Basophils (Bld) [#/Vol] 0.03 10*3/uL [facility] Basophils/100 WBC (Bld) 0.5 % [facility] Eosinophils (Bld) [#/Vol] 0.02 10*3/uL [facility] Eosinophils/100 WBC (Bld) 0.4 % [facility] Erythrocyte distribution width (RBC) [Entitic vol] 13.3 % 11.6 - 14.8 % [facility] Hematocrit (Bld) [Volume fraction] 39.7 % 36.0 - 46.0 % [facility] Hemoglobin (Bld) [Mass/Vol] 12.7 g/dL 12.0 - 16.0 g/dL [facility] Immature granulocytes (Bld) [#/Vol] 0.03 10*3/uL [facility] Immature granulocytes/100 WBC (Bld) 0.5 % [facility] Comment on above: The IG parameter is the percentage of metamyelocytes, myelocytes and promyelocytes. An immature granulocyte count (IG) of 1% or more suggests the possibility of infection, an IG count of 3% is very likely related to an infection. Lymphocytes (Bld) [#/Vol] 1.07 10*3/uL [facility] Lymphocytes/100 WBC (Bld) 18.9 % [facility] MCH (RBC) [Entitic mass] 29.5 pg 26.0 - 34.0 pg [facility] MCHC (RBC) [Mass/Vol] 32 g/dL 31.0 - 37.0 g/dL [facility] MCV (RBC) [Entitic vol] 92.3 fL 80.0 - 100.0 fL [facility] Monocytes (Bld) [#/Vol] 0.4 10*3/uL [facility] Monocytes/100 WBC (Bld) 7.1 % [facility] Neutrophils (Bld) [#/Vol] 4.11 10*3/uL [facility] Neutrophils/100 WBC (Bld) 72.6 % [facility] Nucleated RBC (Bld) [#/Vol] 0 10*3/uL [facility] Nucleated RBC/100 WBC (Bld) [Ratio] 0 % [facility] Platelet mean volume (Bld) [Entitic vol] 10 fL 9.4 - 12.4 fL [facility] Platelets (Bld) [#/Vol] 224 10*3/uL [facility] RBC (Bld) [#/Vol] 4.3 10*6/uL [facility] alth WBC (Bld) [#/Vol] 5.66 10*3/uL [facility] CBC WITH AUTO DIFFERENTIALon 07-30-2024 AUTO NRBC 0.0 % Normal [facility] Comment on above: Performed By: #### L [id number] ####[facility] [address], [place] [address] Олег Wheeler M.D. [id number] AUTO NRBC ABS COUNT 0.00 K/mcL Normal 0.00-0.00 [facility] Comment on above: Performed By: #### L [id number] #### LAB [address] [address] Олег Wheeler M.D. [id number] BASOPHILS ABSOLUTE COUNT 0.03 K/mcL Normal 0.00-0.30 [facility] Comment on above: Performed By: #### L [id number] #### LAB [address] [address] Олег Wheeler M.D. [id number] Basophils/100 WBC (Bld) 0.5 % Normal [facility] Comment on above: Performed By: #### L [id number] #### LAB [address] [address] Олег Wheeler M.D. [id number] Eosinophils (Bld) [#/Vol] 0.02 10*3/uL Normal 0.00-0.50 [facility] Comment on above: Performed By: #### L [id number] #### LAB [address] [address] Олег Wheeler M.D. [id number] Eosinophils/100 WBC (Bld) 0.4 % Normal [facility] Comment on above: Performed By: #### L [id number] #### LAB [address] [address] Олег Wheeler M.D. [id number] Erythrocyte distribution width (RBC) [Ratio] 13.3 % Normal 11.6-14.8 [facility] Comment on above: Performed By: #### L [id number] #### LAB [address] [address] Олег Wheeler M.D. [id number] Hematocrit (Bld) [Volume fraction] 39.7 % Normal 36.0-46.0 [facility] Comment on above: Performed By: #### L [id number] #### LAB [address] [place] [address] Олег Wheeler M.D. [id number] Hemoglobin (Bld) [Mass/Vol] 12.7 g/dL Normal 12.0-16.0 [facility] Comment on above: Performed By: #### L [id number] #### LAB [address] [address] Олег Wheeler M.D. [id number] IG ABSOLUTE 0.03 K/mcL Normal 0.00-0.30 [facility] Comment on above: Performed By: #### L [id number] #### LAB [address] [address] Олег Wheeler M.D. [id number] IG PERCENT 0.50 % [facility] [place] Comment on above: Result Comment: The IG parameter is the percentage of metamyelocytes, myelocytes and promyelocytes. An immature granulocyte count (IG) of 1% or more suggests the possibility of infection, an IG count of 3% is very likely related to an infection. Performed By: #### L [id number] #### LAB [address] [place] [address] Олег Wheeler M.D. [id number] Lymphocytes (Bld) [#/Vol] 1.07 10*3/uL Normal 0.90-4.00 [facility] Comment on above: Performed By: #### L [id number] #### LAB [address] [place] [address] Олег Wheeler M.D. [id number] Lymphocytes/100 WBC (Bld) 18.9 % [facility] [place] Comment on above: Performed By: #### L [id number] #### LAB [address] [address] Олег Wheeler M.D. [id number] MCH (RBC) [Entitic mass] 29.5 pg Normal 26.0-34.0 [facility] Comment on above: Performed By: #### L [id number] #### LAB [address] [address] Олег Wheeler M.D. [id number] MCV (RBC) [Entitic vol] 92.3 fL Normal 80.0-100.0 [facility] Comment on above: Performed By: #### L [id number] #### LAB [address] [address] Олег Wheeler M.D. [id number] MEAN CORPUSCULAR HEMOGLOBIN CONC 32.0 g/dL Normal 31.0-37.0 [facility] Comment on above: Performed By: #### L [id number] #### LAB [address] [address] Олег Wheeler M.D. [id number] Monocytes (Bld) [#/Vol] 0.40 10*3/uL Normal 0.30-0.90 [facility] Comment on above: Performed By: #### L [id number] #### LAB [address] [address] Олег Wheeler M.D. [id number] Monocytes/100 WBC (Bld) 7.1 % Normal [facility] Comment on above: Performed By: #### L [id number] #### LAB [address] [address] Олег Wheeler M.D. [id number] NEUTROPHILS ABSOLUTE COUNT 4.11 K/mcL Normal 1.70-7.00 [facility] Comment on above: Performed By: #### L [id number] #### LAB [address] [address] Олег Wheeler M.D. [id number] Neutrophils/100 WBC (Bld) 72.6 % Normal [facility] Comment on above: Performed By: #### L [id number] #### LAB [address] [address] Олег Wheeler M.D. [id number] Platelet mean volume (Bld) [Entitic vol] 10.0 fL Normal 9.4-12.4 [facility] Comment on above: Performed By: #### L [id number] #### LAB [address] [place] [address] Олег Wheeler M.D. [id number] Platelets (Bld) [#/Vol] 224 10*3/uL Normal 150-400 [facility] Comment on above: Performed By: #### L [id number] ####[facility] [address] [address] Олег Wheeler M.D. [id number] RBC (Bld) [#/Vol] 4.30 10*6/uL Normal 4.00-5.20 [facility] Comment on above: Performed By: #### L [id number] ####[facility] [address] [address] Олег Wheeler M.D. [id number] WBC (Bld) [#/Vol] 5.66 10*3/uL Normal 4.50-11.00 [facility] Comment on above: Performed By: #### L [id number] #### LAB [address] [address] Олег Wheeler M.D. [id number] COMPREHENSIVE METABOLIC PANE [facility] 07-30-2024 Albumin [Mass/Vol] 4.7 g/dL Normal 3.2-5.2 [facility] Comment on above: Order Comment: [facility] has implemented the eGFR calculation approach that does not have a coefficient for race that conforms to the NKF-ASN Task Force Recommendations. Performed By: #### 4 6126 ####[facility] [address] [address] Олег Wheeler M.D. [id number] ALP [Catalytic activity/Vol] 80 U/L Normal 40-150 [facility] Comment on above: Order Comment: [facility] has implemented the eGFR calculation approach that does not have a coefficient for race that conforms to the NKF-ASN Task Force Recommendations. Performed By: #### 4 6126 ####[facility] [address] [address] Олег Wheeler M.D. [id number] ALT [Catalytic activity/Vol] 10 U/L Normal 0-35 U/L [facility] Comment on above: Order Comment: [facility] has implemented the eGFR calculation approach that does not have a coefficient for race that conforms to the NKF-ASN Task Force Recommendations. Performed By: #### 4 6126 ####[facility] [address] [address] Олег Wheeler M.D. [id number] Anion gap [Moles/Vol] 13 mmol/L Normal 10-20 [facility] Comment on above: Order Comment: [facility] has implemented the eGFR calculation approach that does not have a coefficient for race that conforms to the NKF-ASN Task Force Recommendations. Performed By: #### 4 6126 #### LAB [address] [address] Олег Wheeler M.D. [id number] AST [Catalytic activity/Vol] 18 U/L Normal 0-35 U/L [facility] Comment on above: Order Comment: [facility] has implemented the eGFR calculation approach that does not have a coefficient for race that conforms to the NKF-ASN Task Force Recommendations. Performed By: #### 4 6126 #### LAB [address] [address] Олег Wheeler M.D. [id number] Bilirubin [Mass/Vol] 0.2 mg/dL Normal 0.0-1.3 [facility] Comment on above: Order Comment: [facility] has implemented the eGFR calculation approach that does not have a coefficient for race that conforms to the NKF-ASN Task Force Recommendations. Performed By: #### 4 6126 #### LAB [address] [address] Олег Wheeler M.D. [id number] Calcium [Mass/Vol] 9.9 mg/dL Normal 8.4-10.2 [facility] Comment on above: Order Comment: [facility] has implemented the eGFR calculation approach that does not have a coefficient for race that conforms to the NKF-ASN Task Force Recommendations. Performed By: #### 4 6126 #### LAB [address] [address] Олег Wheeler M.D. [id number] Chloride [Moles/Vol] 104 mmol/L Normal 98-108 [facility] Comment on above: Order Comment: [facility] has implemented the eGFR calculation approach that does not have a coefficient for race that conforms to the NKF-ASN Task Force Recommendations. Performed By: #### 4 6126 #### LAB [address] [address] Олег Wheeler M.D. [id number] Creatinine [Mass/Vol] 0.73 mg/dL Normal 0.60-1.10 [facility] Comment on above: Order Comment: [facility] has implemented the eGFR calculation approach that does not have a coefficient for race that conforms to the NKF-ASN Task Force Recommendations. Performed By: #### 4 6126 #### LAB [address] [address] Олег Wheeler M.D. [id number] EGFR 87 mL/min/1.73 m2 Normal >=60 [facility] Comment on above: Order Comment: [facility] has implemented the eGFR calculation approach that does not have a coefficient for race that conforms to the NKF-ASN Task Force Recommendations. Result Comment: Jyothi mated GFR was calculated using the 2020 CKD-EPI creatinine equation. Performed By: #### 4 6126 #### LAB [address] [address] Олег Wheeler M.D. [id number] Glucose [Mass/Vol] 106 mg/dL High 65-99 [facility] Comment on above: Order Comment: [facility] has implemented the eGFR calculation approach that does not have a coefficient for race that conforms to the NKF-ASN Task Force Recommendations. Performed By: #### 4 6126 #### LAB [address] [address] Олег Wheeler M.D. [id number] HCO3 (Bld) [Moles/Vol] 28 mmol/L Normal 21-32 [facility] Comment on above: Order Comment: [facility] has implemented the eGFR calculation approach that does not have a coefficient for race that conforms to the NKF-ASN Task Force Recommendations. Performed By: #### 4 6126 #### LAB [address] [address] Олег Wheeler M.D. [id number] Potassium [Moles/Vol] 3.8 mmol/L Normal 3.5-5.1 [facility] Comment on above: Order Comment: [facility] has implemented the eGFR calculation approach that does not have a coefficient for race that conforms to the NKF-ASN Task Force Recommendations. Performed By: #### 4 6126 #### LAB [address] [address] Олег Wheeler M.D. [id number] Protein [Mass/Vol] 7.3 g/dL Normal 6.0-8.0 [facility] Comment on above: Order Comment: [facility] has implemented the eGFR calculation approach that does not have a coefficient for race that conforms to the NKF-ASN Task Force Recommendations. Performed By: #### 4 6126 #### LAB [address] [address] Олег Wheeler M.D. [id number] Sodium [Moles/Vol] 141 mmol/L Normal 135-145 [facility] Comment on above: Order Comment: [facility] has implemented the eGFR calculation approach that does not have a coefficient for race that conforms to the NKF-ASN Task Force Recommendations. Performed By: #### 4 6126 #### LAB [address] [address] Олег Wheeler M.D. [id number] Urea nitrogen [Mass/Vol] 12 mg/dL Normal 8-25 [facility] Comment on above: Order Comment: [facility] has implemented the eGFR calculation approach that does not have a coefficient for race that conforms to the NKF-ASN Task Force Recommendations. Performed By: #### 4 6126 #### LAB [address] [address] Олег Wheeler M.D. [id number] Urea nitrogen/Creatinine [Mass ratio] 16.4 mg/mg Normal 10.0-20.0 [facility] Comment on above: Order Comment: [facility] has implemented the eGFR calculation approach that does not have a coefficient for race that conforms to the NKF-ASN Task Force Recommendations. Performed By: #### 4 6126 ####[facility] [address] [place], [place] [address] Олег Wheeler M.D. [id number] [facility] metabolic 2000 panelon 07-30-2024 Albumin [Mass/Vol] 4.7 g/dL 3.2 - 5.2 g/dL [facility] ALP [Catalytic activity/Vol] 80 U/L 40 - 150 U/L [facility] ALT [Catalytic activity/Vol] 10 U/L 0-35 U/L [facility] [facility] Anion gap [Moles/Vol] 13 mmol/L 10 - 2 0 mmol/L [facility] AST [Catalytic activity/Vol] 18 U/L 0-35 U/L [facility] Bilirubin [Mass/Vol] 0.2 mg/dL 0.0 - 1 .3 mg/dL [facility] Calcium [Mass/Vol] 9.9 mg/dL 8.4 - 10. 2 mg/dL [facility] Chloride [Moles/Vol] 104 mmol/L 98 - 10 8 mmol/L [facility] Creatinine [Mass/Vol] 0.73 mg/dL 0.60 - 1.10 mg/dL [facility] GFR/1.73 sq M.predicted CKD-EPI (S/P/Bld) [Vol rate/Area] 87 - PINF [facility] Comment on above: Estimated GFR was ca lculated using the 2020 CKD-EPI creatinine equation. Glucose [Mass/Vol] 106 mg/dL High 65 - 99 mg/dL [facility] HCO3 [Moles/Vol] 28 mmol/L 21 - 32 mmol/L [facility] Interpretation and review of laboratory results Abnormal [facility] Potassium [Moles/Vol] 3.8 mmol/L 3.5 - 5.1 mmol/L [facility] Protein [Mass/Vol] 7.3 g/dL 6.0 - 8.0 g/dL [facility] Sodium [Moles/Vol] 141 mmol/L 135 - 145 mmol/L [facility] Urea nitrogen [Mass/Vol] 12 mg/dL 8 - 25 mg/dL [facility] Urea nitrogen/Creatinine [Mass ratio] 16.4 mg/mg 10.0 - 20.0 [facility] has implemented the eGFR calculation approach that does not have a coefficient for race that conforms to the NKF-ASN Task Force Recommendations. [facility] D-DIMER, QUANTITATIVEon 12- D-DIMER QUANTITATIVE < Normal 0.27-0.49 [facility] Comment on above: Order Comment: A D-d leondies concentration of <0.5 micrograms per milliliter FEU is considered a low probability for pulmonary embolus (PE) and deep venous thrombosis (DVT). Results of this test should always be interpreted in conjunction with the patient's medical history,clinical presentation, and other findings. Clinical diagnosis should not be based on the results of the D-dimer alone. Performed By: #### 4 [id number] ####[facility] [address], [place] [address] Олег Wheeler M.D. [id number] D-DimerOrdered By: Anna brooks on 07-30-2024 Fibrin D-dimer FEU (PPP) [Mass/Vol] [facility] Interpretation and review of laboratory results Normal [facility] A D-dimer concentration of <0.5 micrograms per milliliter FEU is considered a low probability for pulmonary embolus (PE) and deep venous thrombosis (DVT). Results of this test should always be interpreted in conjunction with the patient's medical history,clinical presentation, and other findings. Clinical diagnosis should not be based on the results of the D-dimer alone. [facility] ED Prov Noteon 07-30-2024 ED Prov Note [facility] ED note NAME: Chinmay Grimaldo 73 y.o. CSN: [id number] PCP: Trang Carr MD History: Chief Complaint: [...] with her PCP. Denies history of CAD NC PE pneumothorax she said about 15 years [...] (*) All (more content not included)... Normal [facility] EKGon 07-30-2024 [facility] EKG 12-leadon 07-30-2024 Atrial Rate 75 BPM [facility] P Florence 65 degrees [facility] P-R Interval 148 ms [facility] Q-T Interval 368 ms [facility] QRS Duration 84 ms [facility] QTC Calculation (Bezet) 410 ms [facility] R [place] 45 degrees [facility] T Florence 56 degrees [facility] Ventricular Rate 75 BPM [facility] Yisel Josue MD 07/31/2024 10:04 AM EKG 12-lead Date/Time: 07/30/2024 7:36 PM Performed by: Yisel Josue MD Authorized by: Yisle Josue MD Interpreted by ED attending physician Rhythm: sinus rhythm BPM: 75 Conduction: conduction normal ST Segments: ST segments normal T Waves: T waves normal Clinical impression: non-specific ECG Comments: EKG with normal sinus rhythm rate of 75 beats per minutes WI interval 148 ms QRS duration 84 ms QTc [address]-T wave abnormalities. [facility] [place]-30-[facility] H AND P -- Attestation signed by Jere Colon DO at [...] to monitor and adjust care as needed. [facility] HISTORY AND PHYSICAL -- [facility] Patient Name: Chinmay Grimaldo : 1950 MR #: [id number] Admit Date: 07/30/2024 Physicians: Trang Carr MD (Family); No ref. provider found (Referring) Chinmay Grimaldo is a 73 y.o. female patient of Trang Carr MD with history of GERD who presented to [facility] on 07/30/2024 with chest pain. Chest pain [...] with history of GERD who presented to [facility] on 07/30/2024 with chest pain. Pt stated she started having chest pain earlier today. She was unable to describe the pain, just described it as a sensation in the left side of her chest. It did not worsen with activity or improve with rest. Did not change with deep inspiration. She went to [place] ED for further evaluation. EKG unremarkable. CXR [...] coloration Psych: (more content not included)... Normal [facility] LIPASEon 07-30-2024 Lipase [Catalytic activity/Vol] 42 U/L Normal 15-65 [facility] Comment on above: Performed By: #### 4 6086 #### LAB [address], [place] [address] Олег Wheeler M.D. [id number] Light Blue Topon 07-30-2024 Extra Tube Hold for add-ons. [facility] Comment on above: Auto resulted. [facility] Lipaseon 07-30-2024 Lipase [Catalytic activity/Vol] 42 U/L 15 - 65 U/L [facility] NT PRO BNPon 07-30-2024 Natriuretic peptide B (Bld) [Mass/Vol] 89 pg/mL Normal 0-300 [facility] Comment on above: Order Comment: Pride Study Cut-offsRule In:< /= 50 Years >450 pg/mL51 Years - 75 Years >900 pg/mL76 Years - 99 Years >1800 pg/mLRule Out:All patients <300 pg/mL Performed By: #### 4 7395 #### LAB [address], [place] [address] Олег Wheeler M.D. [id number] Natriuretic peptide.B prohor robby N-Terminal [Mass/Vol]on 07-30-2024 Pride Study Cut-offs Rule In: < /= 50 Years >450 pg/mL 51 Years - 75 Years >900 pg/mL 76 Years - 99 Years >1800 pg/mL Rule Out: All patients <300 pg/mL [facility] No Panel Informationon 07-30 Interpretation and review of laboratory results Normal [facility] TROPONINon 07-30-2024 TROPONIN T DELTA CHANGE INTERPRETATION No biomarker evidence of cardiac injury. Normal [facility] Comment on above: Performed By: #### 4 6608 #### LAB [address], [place] [address] Олег Wheeler M.D. [id number] TROPONIN T NG/L < Normal <=14 [facility] Comment on above: Performed By: #### 4 6608 #### LAB [address], [place] [address] Олег Wheeler M.D. [id number] BASELINE TROPONIN T NG/L < Normal <=14 [facility] Comment on above: Performed By: #### 4 6608 #### LAB [address], [place] [address] Олег Wheeler M.D. [id number] TROPONIN T INTERPRETATION Normal Normal [facility] Comment on above: Performed By: #### 4 6608 #### LAB [address], [place] [address] Олег Wheeler M.D. [id number] Troponinon 07-30-2024 Interp Troponin T Delta Change No biomarker evidence of cardiac injury. [facility] Troponin T ng/L NINF - 14 ng/L [facility] Troponin x 2 (Now and Repeat in 3 hours)Ordered By: Adrienne Dolan on 07-30-2024 Troponin T ng/L NINF - 14 ng/L [facility] Troponin T Interpretation Normal [facility] XR CHEST PA/APon 07-30-2024 XR CHEST PA/AP EXAMINATION: 1 VIEW XR CHEST PA/AP, 07/30/2024 COMPARISON: Chest, 09/06/2019 HISTORY: Injury/Trauma or Illness?:Illness/Other How long have you had these symptoms (acute/chronic)?:Acute chest pain IMPRESSION: 1. Minimal linear atelectasis or scarring in the left lower lung zone. 2. Normal heart size. 3. No acute osseous abnormality. [employer] Capt[employer] Workstation ID: [id number] Dictated by: ROSINA SPEARS on SatJul 30, 2024 8:43:50 PM EST Transcribed by: DAWSON MILES on SatJul 30, 2024 8:59:38 PM EST Finalized by: ROSINA SPEARS on SatJul 30, 2024 9:41:06 PM EST Normal [facility] Comment on above: Order Comment: Injur y/Trauma [...] heart size. 3. No acute osseous abnormality. Dating [employer] Workstation ID: [id number] [facility] Radiology Study observation (narrative) [place] XR Chest PA and Abdomen APOr dered By: Rosina Spears on 07-30-2024 [facility] Work Phone: Urine Cultureon 06-20-2024 URC Culture exhibits no growth. Normal [facility] Comment on above: Performed By: #### M 100.4150 #### [facility] [address] [place], [address] Wound Ctr History AND Physic porfirio 04-23-2024 Wound Ctr History & Physical [facility] [address] [place] [address] H P Exam - Wound Care 04/23/24 1058 MR#: [id number] Acct: [id number] Name: CHINMAY GRIMALDO Rep #: [id number] : 1950 73 From: Daniel Upton DPM [...] that the area surrounding the puncture is wharf tender but it does appear to be healing. She reports she is continue to ambulate in supportive shoe gear and has not gone barefoot since. Denies N/V/F/chills. Denies further complaints. [facility] Home Medications ???Medication ???Instructions ???Recorded ???Last Taken ???Type denosumab 60 mg/mL subcutaneous mg subcut 04/23/24 Unknown History syringe (Prolia) pantoprazole 40 mg tablet,delayed 40 mg PO DAILY 04/23/24 Unknown History release rosuvastatin 10 mg tablet 10 mg PO QHS 04/23/24 Unknown History Allergy/AdvReac Type Severity Reaction Status Date / Time ibandronate sodium (From Allergy sore throat Verified 04/23/24 10:24 Roxana) ROS Constitutional Constitutional: Denies anorexia, chills or [...] was completed: (more content not included)... Normal [facility] Basophil percentageOrdered B y: Sondra Vu on 09-26-2023 Bilirubin [Mass/Vol] 0.60 mg/dL 0.20-1.00 [facility] Comment on above: For patients on eltr ombopag therapy, use of Dimension [place] TBIL is not recommended. Chloride [Moles/Vol] 107 mmol/L 98-107 [facility] Cholesterol [Mass/Vol] 185 mg/dL <200 [facility] Comment on above: <200 mg/dL Desirable 200-240 mg/dL Borderline >240 mg/dL High Risk Glucose [Mass/Vol] 91 mg/dL 74-106 [facility] Potassium [Moles/Vol] 4.0 mmol/L 3.5-5.1 [facility] Protein [Mass/Vol] 7.3 g/dL 6.4-8.2 [facility] Sodium [Moles/Vol] 141 mmol/L 136-145 [facility] Triglyceride [Mass/Vol] 103 mg/dL <199 [facility] Comment on above: The drugs N-Acetylcy steine and Metamizole may falsely depress this assay.Serum Triglycerides Reference Interval Normal <150 mg/dL Borderline high 150 - 199 mg/dL High 200 - 499 mg/dL Very High > or = 500 mg/dL Laboratory - Chemistry and C hemistry - challengeOrdered By: Sondra Vu on 09-26-2023 Albumin/Globulin [Mass ratio] 1.1 {ratio} 0.9-2.4 [facility] ALP [Catalytic activity/Vol] 99 U/L 45-117 [facility] ALT [Catalytic activity/Vol] 21 U/L 13-56 [facility] Cholesterol in HDL [Mass/Vol] 86 mg/dL >40 [facility] Comment on above: The drugs N-Acetylcy steine and Metamizole may falsely depress this assay. Reference Range HDL <40 mg/dL Low HDL Cholesterol HDL >or= 60 mg/dL High HDL Cholesterol Cholesterol in LDL [Mass/Vol] 78 mg/dL 0-130 [facility] CO2 [Moles/Vol] 28.0 mmol/L 21.0-32.0 [facility] Cobalamin (Vitamin B12) [Mass/Vol] 977 pg/mL 211-911 [facility] Ferritin [Mass/Vol] 64 ng/mL 8-252 [facility] Globulin (S) [Mass/Vol] 3.5 g/dL 2.2-4.2 [facility] Urea nitrogen/Creatinine [Mass ratio] 13.7 mg/mg 10-20 [facility] No Panel InformationOrdered By: Sondra Vu on 09-26-2023 Estimated GFR (MDRD) Amer 90 mL/min >60 [facility] Comment on above: GFR Calc Estimated GFR (MDRD) Non-Af Amer 74 mL/min >60 [facility] Comment on above: Non- GFR Calc Vitamin D 25-Hydroxy 46.2 ng/mL [facility] Comment on above: Vitamin D 25(OH) Sta tus Range Deficiency <20 ng/mL (50nmol/L) Insufficiency 20 - 30 ng/mL (50 - 75 nmol/L) Sufficiency 30 - 100 ng/mL (75 - 250 nmol/L) Toxicity >100 ng/mL (>250 nmol/L) VLDL Cholesterol 21 mg/dL 5-40 [facility] Serum or plasma calcium charley urement (mass/volume)Ordered By: Sondra Vu on 09-26-2023 Calcium [Mass/Vol] 9.7 mg/dL 8.5-10.1 [facility] Serum or plasma creatinine m easurement (mass/volume)Ordered By: Sondra Vu on 09-26-2023 Creatinine [Mass/Vol] 0.80 mg/dL 0.55-1.02 [facility] Comment on above: The validity of the calculated GFR & GFRAA in patients over 70 years has not been determined. Clinical correlation is essential. Serum or plasma urea nitroge n measurement (mass/volume)Ordered By: Sondra Vu on 09-26-2023 Urea nitrogen [Mass/Vol] 11 mg/dL 7-18 [facility] Thin prep Papanicolaou smear with manual screeningOrdered By: Sondra Vu on 09-26-2023 Thin prep Papanicolaou smear with manual screening 3.8 g/dL 3.2-5.0 [facility] Thin prep Papanicolaou smear with manual screening 21 U/L 15-37 [facility] Thin prep Papanicolaou smear with manual screening 6 5-15 [facility] No Panel InformationOrdered By: Dr. Espinoza on 01-25-2023 Endomysial IgA Antibody Negative Negative [facility] Serum IgA measurement (units /volume)Ordered By: Dr. Espinoza on 01-25-2023 IgA Qn (S) 157 mg/dL 64-422 [facility] Comment on above: Performed at: [address] [id number] Director: Sergio Tovar PhD, Phone: [phone] Serum or plasma C reactive p rotein measurement (mass/volume)Ordered By: Dr. Espinoza on 01-25-2023 CRP [Mass/Vol] mg/L 0.0-3.0 [facility] Comment on above: C-Reactive Protein ( CRP) provides useful information for thediagnosis, therapy and monitoring of inflammatory processesand associated diseases. For the evaluation of Relative Riskfor Cardiovascular Disease, a High Sensitivity CRP (HSCRP)should be ordered. Serum tissue transglutaminas e IgA antibody assay (units/volume)Ordered By: Dr. Espinoza on 01-25-2023 tTG IgA Qn (S) <2 U/mL 0-3 [facility] Comment on above: Negative 0 - [...] with elsie; 12/12/2022 2:10 pm ACCESSION NUMBER(S): [id number] ORDERING CLINICIAN: SAMMIE HILARIO INDICATION: Screening. COMPARISON: [...] Screening. Electronically signed by: JOSE PATTERSON MD [facility] US PELVIS TRANSABDOMINAL WIT H TRANSVAGINALon 11-23-2022 US PELVIS TRANSABDOMINAL WITH TRANSVAGINAL Patient Name: CHINMAY GRIMALDO STUDY: US PELVIS TRANSABDOMINAL WITH TRANSVAGINAL; 11/23/2022 11:29 am INDICATION: RIGHT LOWER QUADRANT PAIN. COMPARISON: None. ACCESSION NUMBER(S): [id number] ORDERING CLINICIAN: ERNESTINA AYOUB TECHNIQUE: Multiple multiplanar [...] gas. Electronically signed by: EVERTON VIEIRA MD [facility] BONE DENSITY, DEXA 1 OR MORE [...] bone Densitometry (DEXA). COMPARISON: 06/06/2020. ACCESSION NUMBER(S): [id number] ORDERING CLINICIAN: SAMMIE HILARIO TECHNIQUE: Bone Densitometry (DEXA) of the lumbar spine and left hip performed. FINDINGS: Name: CHINMAY GRIMALDO Date:1950 Height:160 Gender:F Exam Date:08/29/2022 Weight:60.7 Indications:Other [...] warranted. Electronically signed by: JOSE PATTERSON MD [facility] FOOT COMPLETE, MIN 3 VIEWSon 01-24-2022 FOOT COMPLETE, MIN 3 VIEWS Patient Name: CHINMAY GRIMALDO STUDY: FOOT; COMPLETE, MIN 3 VIEWS INDICATION: M79.671. COMPARISON: None ACCESSION NUMBER(S): [id number] ORDERING CLINICIAN: DIPAK SETH FINDINGS: Nondisplaced fracture of the base of the right 5th metatarsal. No dislocation. No other osseous lesion. IMPRESSION: Nondisplaced right 5th metatarsal base fracture. Electronically signed by: ANDREEA ALEJANDRA MD [facility] GROUP A STREP,PCRon 01-25-20 22 GROUP A STREP,PCR Not detected Normal Not Detected [facility] Comment on above: Result Comment: This test was performed utilizing an FDA-cleared rapid nucleic acid amplification by PCR to qualitatively detect Group A Streptococci from throat swab specimens without the need for culture confirmation of negative results. Performed By: #### G APC1 #### [place] [address] Lab Specimen Source Throat Normal [facility] Comment on above: Performed By: #### G APC1 #### [place] [id number] Provider Note - ED v3on 01-10 Provider Note - ED v3 Provider Note: Chart Review HISTORY OF PRESENTING ILLNESS CHINMAY is a 71 year old Female and was seen by me at 24-Jan-2022 08:17. The historian is the patient. Triage Information: Most recent Vital Sign Value Date PAST MEDICAL HISTORY ALLERGIES/INTOLERANCES : Allergy Allergen: Boniva Type: Drug Reaction: Other [...] ~01/2022) of the COVID-19 vaccine. Received the 1749-7549 flu vaccine. Received the pneumonia vaccine. CRITICAL CARE VITAL SIGNS: T PRBP SpO2O2(LPM) %FiO2 Method 24-Jan-2022 08:08:[id number]/6 1 98 MDM MDM/ED COURSE: This note was [...] last night; has not tried any other kugb-pwq-[id number] medications or home remedies for symptom management. No known ill contacts. Has received the COVID-19 vaccine x 2 + 2 boosters, the 4843-3085 flu vaccine, and a pneumonia vaccine. Is [...] Musculoskeletal: Grossly normal; appropriate for age. Integumentary: [place], warm, dry, and intact. No rashes or [...] negative so far. Patient [facility] - requesting watch and wait antibiotic. Rx for Amoxicillin sent to p (more content not included)... Normal [facility] GROUP A STREP,PCRon 10-30-19 GROUP A STREP,PCR Not detected Normal Not Detected [facility] Comment on above: Result Comment: This test and its performance have been Validated by [facility] Laboratory using analyte specific reagents (ASR). It has not been cleared or approved by the U.S. Food and Drug Administration. The FDA has determined that such clearance or approval is not necessary. Performed By: #### G APC1 #### [facility] [address] [place] [address] GROUP A STREP,PCRon 10-29-19 Lab Specimen Source Throat Normal [facility] Comment on above: Performed By: #### G APC1 #### [facility] [address] [place] [address] ASOon 09-01-2021 ASO 196 IU/mL Normal 0 - 200 [facility] Comment on above: Performed By: #### A SO #### [facility] [address] [place] [address] CBC AND DIFFERENTIALon 08-31 Basophils (Bld) [#/Vol] 0.00 10*3/uL Normal 0.00 - 0.1 0 [facility] Comment on above: Performed By: #### C BCDF #### [address] [address] Basophils/100 WBC (Bld) 0.7 % Normal 0.0 - 2.0 [facility] Comment on above: Performed By: #### C BCDF #### [address] [address] Eosinophils (Bld) [#/Vol] 0.10 10*3/uL Normal 0.00 - 0.70 [facility] Comment on above: Performed By: #### C BCDF #### [address] [address] Eosinophils/100 WBC (Bld) 1.3 % Normal 0.0 - 6.0 [facility] Comment on above: Performed By: #### C BCDF #### [address] [address] Erythrocyte distribution width (RBC) [Ratio] 14.2 % Normal 11.5 - 14.5 [facility] Comment on above: Performed By: #### C BCDF #### [address] [address] Hematocrit (Bld) [Volume fraction] 44.1 % Normal 36.0 - 46.0 [facility] Comment on above: Performed By: #### C BCDF #### [address] [address] Hemoglobin (Bld) [Mass/Vol] 14.6 g/dL Normal 12.0 - 16.0 [facility] Comment on above: Performed By: #### C BCDF #### [address] [address] Lymphocytes (Bld) [#/Vol] 0.80 10*3/uL Low 1.20 - 4.80 [facility] Comment on above: Performed By: #### C BCDF #### [address] [address] Lymphocytes/100 WBC (Bld) 16.2 % Normal 13.0 - 44.0 [facility] Comment on above: Performed By: #### C BCDF #### [address] [address] MCHC (RBC) [Mass/Vol] 33.0 g/dL Normal 32.0 - 36.0 [facility] Comment on above: Performed By: #### C BCDF #### [address] [address] MCV (RBC) [Entitic vol] 94 fL Normal 80 - 100 [facility] Comment on above: Performed By: #### C BCDF #### [address] [address] Monocytes (Bld) [#/Vol] 0.30 10*3/uL Normal 0.10 - 1.0 0 [facility] Comment on above: Performed By: #### C BCDF #### [address] [address] Monocytes/100 WBC (Bld) 6.2 % Normal 2.0 - 10.0 [facility] Comment on above: Performed By: #### C BCDF #### [address] [address] Neutrophils (Bld) [#/Vol] 3.90 10*3/uL Normal 1.20 - 7.70 [facility] Comment on above: Result Comment: Perc ent differential counts (%) should be interpreted in the context of the absolute cell counts (cells/L). Performed By: #### C BCDF #### [address] [address] Neutrophils/100 WBC (Bld) 75.6 % Normal 40.0 - 80.0 [facility] Comment on above: Performed By: #### C BCDF #### [address] [address] NUCLEATED RBC 0.4 /100 WBC Normal [facility] Comment on above: Performed By: #### C BCDF #### [address] [address] Platelets (Bld) [#/Vol] 222 10*3/uL Normal 150 - 450 [facility] Comment on above: Performed By: #### C BCDF #### [address] [address] RBC 4.72 x10E12/L Normal 4.00 - 5.20 [facility] Comment on above: Performed By: #### C BCDF #### [address] [address] WBC (Bld) [#/Vol] 5.2 10*3/uL Normal 4.4 - 11.3 [facility] Comment on above: Performed By: #### C BCDF #### [address] [address] COMPREHENSIVE PANELon 2021 Albumin [Mass/Vol] 4.4 g/dL Normal 3.4 - 5.0 [facility] Comment on above: Performed By: #### C MP #### [address] [address] ALP [Catalytic activity/Vol] 80 U/L Normal 33 - 136 [facility] Comment on above: Performed By: #### C MP #### [address] [address] ALT [Catalytic activity/Vol] 12 U/L Normal 7 - 45 [facility] Comment on above: Result Comment: Stephanie ents treated with Sulfasalazine may generate falsely decreased results for ALT. Performed By: #### C MP #### [address] [address] Anion gap [Moles/Vol] 11 mmol/L Normal 10 - 20 [facility] Comment on above: Performed By: #### C MP #### [address] [address] AST [Catalytic activity/Vol] 14 U/L Normal 9 - 39 [facility] Comment on above: Performed By: #### C MP #### [address] [address] Bilirubin [Mass/Vol] 0.6 mg/dL Normal 0.0 - 1.2 [facility] Comment on above: Performed By: #### C MP #### [address] [address] Calcium [Mass/Vol] 9.6 mg/dL Normal 8.6 - 10.3 [facility] Comment on above: Performed By: #### C MP #### [address] [address] Chloride [Moles/Vol] 101 mmol/L Normal 98 - 107 [facility] Comment on above: Performed By: #### C MP #### [address] [address] Creatinine [Mass/Vol] 0.75 mg/dL Normal 0.50 - 1.05 [facility] Comment on above: Performed By: #### C MP #### [address] [address] GFR/1.73 sq M.predicted among non-blacks MDRD (S/P/Bld) [Vol rate/Area] 85 mL/min/{1.73_m2} Normal >90 [facility] Comment on above: Result Comment: CALC ULATIONS OF ESTIMATED GFR ARE PERFORMED USING THE 2020 CKD-EPI STUDY REFIT EQUATION WITHOUT THE RACE VARIABLE FOR THE IDMS-TRACEABLE CREATININE METHODS. https://jasn.asnjournals.org/content// 202023 Performed By: #### C MP #### [address] [address] Glucose [Mass/Vol] 110 mg/dL High 74 - 99 [facility] Comment on above: Performed By: #### C MP #### [address] [address] HCO3 (Bld) [Moles/Vol] 31 mmol/L Normal 21 - 32 [facility] Comment on above: Performed By: #### C MP #### [address] [address] Potassium [Moles/Vol] 3.9 mmol/L Normal 3.5 - 5.3 [facility] Comment on above: Performed By: #### C MP #### [address] [address] Protein [Mass/Vol] 7.3 g/dL Normal 6.4 - 8.2 [facility] Comment on above: Performed By: #### C MP #### [address] [address] Sodium [Moles/Vol] 139 mmol/L Normal 136 - 145 [facility] Comment on above: Performed By: #### C MP #### [address] [address] Urea nitrogen [Mass/Vol] 12 mg/dL Normal 6 - 23 [facility] Comment on above: Performed By: #### C MP #### [address] [address] Covid 19 Resultson 2 SARS-CoV-2 (COVID-19) RNA [...] You may also be contacted by the [facility] to see if any of [...] or Naproxen (Aleve) can also be used. Ckfv-czm-quvehlf cough and cold medicines can be used according to the instructions on the package. Some rxjg-oce-bpkwats medicines also contain acetaminophen. Make sure you [...] water are not available, use alcohol-based hand web press operator. Avoid touching your eyes, nose, and [...] 24 lynda (more content not included)... Normal [facility] INFLUENZA A/B, COVID 2019 PC R,SYMPTOMATICon 08-29-2021 INFLUENZA A, PCR Not detected Normal Not Detected [facility] Comment on above: Result Comment: Resp iratory virus testing is performed routinely by PCR for Influenza A/B and RSV. If Influenza and RSV PCR are negative, testing for parainfluenza 1,2,3 viruses and adenovirus is routinely performed for oncology inpatients and intensive care unit patients at [facility] and is available on request on other patients by calling Laboratory Client Services at [phone]. Not Detected results do not preclude Influenza A/B or RSV infections since the adequacy of sample collection or low viral burden may impact the clinical sensitivity of this test method. Performed By: #### C OINP #### [facility] [address] [place] [id number] INFLUENZA B, PCR Not detected Normal Not Detected [facility] Comment on above: Result Comment: Resp iratory virus testing is performed routinely by PCR for Influenza A/B and RSV. If Influenza and RSV PCR are negative, testing for parainfluenza 1,2,3 viruses and adenovirus is routinely performed for oncology inpatients and intensive care unit patients at [facility] and is available on request on other patients by calling Laboratory Client Services at [phone] Not Detected results do not preclude Influenza [...] by the Microbiology Laboratory, Department of Pathology, [facility], [place], [place]. It has not been cleared or approved by the US Food and Drug Administration; however, FDA clearance or approval is not currently required for clinical use. This test should not be regarded as investigational or for research purposes. Performed By: #### C OINP #### [facility] [address] [place] [address] SARS-CoV-2 (COVID-19) RNA KINGS+probe Ql (Unsp spec) Not detected Normal Not Detected [facility] Comment on above: Result Comment: . This [...] patient management decisions. Fact sheet for providers: https://www.fda.gov/media/550449/download Fact sheet for patients: https://www.fda.gov/media/408182/download This test has received FDA Emergency Use Authorization (EUA) and has been verified by [facility] ([facility]). This test is only authorized for the duration of time that circumstances exist to justify the authorization of the emergency use of in vitro diagnostic tests for the detection of SARS-CoV-2 virus and/or diagnosis of COVID-19 infection under section 564(b)(1) of the Act, 21 U.S.C. 360bbb-3(b)(1), unless the authorization is terminated or revoked sooner. [facility] is certified under CLIA-88 as qualified to perform high complexity testing. Testing is performed in the [facility] laboratories located at [address] [place] [address]. Performed By: #### C OINP #### [address] [place] [address] INFLUENZA A/B, COVID 2019 PC R,SYMPTOMATICon 08-28-2021 DATE OF SYMPTOM ONSET [YYYYMMDD]? [id number] Normal [facility] Comment on above: Performed By: #### C OINP #### [address] [place] [address] Lab Specimen Source Nasal, Nasopharyngeal Normal [facility] Comment on above: Performed By: #### C OINP #### [place] [address] PT Progress Noteon 1 PT Progress Note [...] aching. Insurance Insurance reviewed Visit number: POC: [facility] Evaluating therapist Naveen Estrada PT. -->DT M75.41; [...] Flexion: 5/5 -->5/5 Elbow Extension: 5/5 -->5/5 Nurse Researcher: good . Observation Palpation: R bicipital groove area tenderness. ROM / Joint Mobility (Range of Motion in degrees) Shoulder: (Fabian: P! Denotes Pain with Movement, * Indicates [place] Resistant Otherwise Measurements are in Supine) Flexion: [...] code time is 40 minutes. Therapeutic exercise (34977): timed minutes 32, units 2 . UBE [...] x 5 ea direction . Manual Therapy (47837): timed minutes 8, units 1 . Post GH Mobs gr 3 loose pack (X) STW to R pec, infraspinatus, biceps tendon, upper/mid/low trap x8' Passive ROM all planes (X). 10/05/20 [id number] Provided and reviewed for progression 09/21/20 [id number] Provided and reviewed for progression. 09/16/20 [id number] Provided and reviewed for HEP. Provided today: education and equipment provided . Access Code: [email or web address] URL: [email or web address]/ Date: 10/31/2020 Prepared by: Nasreen Eubakns Exercises ?Seated Shoulder Abduction AAROM with Joya [...] Oct 31 2020 1:35PM EST (Author) Normal [facility] PT Progress Noteon 1 PT Progress Note [...] Insurance reviewed Visit number: 16 POC: 07/27 [facility] Evaluating therapist Naveen Estrada PT. -->DT M75.41; [...] code time is 44 minutes. Therapeutic exercise (21011): timed minutes 32, units 2 . UBE [...] x 5 ea direction . Manual Therapy (99622): timed minutes 12, units 1 . Post GH Mobs gr 3 loose pack STW to R pec, infraspinatus, biceps tendon, upper/mid/low trap Passive ROM all planes x8'. 10/05/20 [id number] Provided and reviewed for progression 09/21/20 [id number] Provided and reviewed for progression. 09/16/20 [id number] Provided and reviewed for HEP. Provided today: [...] Signatures Electronically signed by : Shawanda Perez, ASSISTANT PROFESSOR OF THEATER; Oct 26 2020 1:03PM EST (Author) Electronically signed by : Nasreen Hutchins, PT; Oct 31 2020 8:26AM EST Normal [facility] PT Progress Noteon 03-10-202 1 PT Progress Note Therapy Diagnosis Assessed [...] Insurance reviewed Visit number: 15 POC: 07/27 [facility] Evaluating therapist Naveen Estrada PT. -->DT M75.41; [...] code time is 44 minutes. Therapeutic exercise (29222): timed minutes 32, units 2 . UBE [...] x 5 ea direction . Manual Therapy (30493): timed minutes 12, units 1 . Post GH Mobs gr 3 loose pack STW to R pec, infraspinatus, biceps tendon, upper/mid/low trap Passive ROM all planes x8'. 10/05/20 [id number] Provided and reviewed for progression 09/21/20 [id number] Provided and reviewed for progression. 09/16/20 [id number] Provided and reviewed for HEP. Provided today: [...] Signatures Electronically signed by : Shawanda Perez, ASSISTANT PROFESSOR OF THEATER; Oct 19 2020 1:01PM EST (Author) Electronically [...] Insurance reviewed Visit number: 14 POC: 07/27 [facility] Evaluating therapist Naveen Estrada PT. -->DT M75.41; [...] code time is 44 minutes. Therapeutic exercise (92370): timed minutes 32, units 2 . UBE [...] x 5 ea direction . Manual Therapy (00670): timed minutes 12, units 1 . Post GH Mobs gr 3 loose pack STW to R pec, infraspinatus, biceps tendon, upper/mid/low trap Passive ROM all planes x8'. 10/05/20 [id number] Provided and reviewed for progression 09/21/20 [id number] Provided and reviewed for progression. 09/16/20 [id number] Provided and reviewed for HEP. Provided today: [...] Signatures Electronically signed by : Shawanda Perez, ASSISTANT PROFESSOR OF THEATER; Oct 14 2020 10:00AM EST (Author) Electronically signed by : Nasreen Hutchins, PT; Oct 25 2020 1:45PM EST Normal [facility] PT Progress Noteon PT Progress Note Therapy [...] Insurance reviewed Visit number: 12 POC: 07/27 [facility] Evaluating therapist Naveen Estrada PT. -->DT M75.41; [...] code time is 42 minutes. Therapeutic exercise (41397): timed minutes 30, units 2 . UBE [...] x 5 ea direction . Manual Therapy (35700): timed minutes 12, units 1 . Post GH Mobs gr 3 loose pack STW to R pec, infraspinatus, biceps tendon, upper/mid/low trap Passive ROM all planes x8'. 10/05/20 [id number] Provided and reviewed for progression 09/21/20 [id number] Provided and reviewed for progression. 09/16/20 [id number] Provided and reviewed for HEP. Provided today: [...] Signatures Electronically signed by : Mary Dyson ASSISTANT PROFESSOR OF THEATER; Oct 05 2020 10:22AM EST (Author) Electronically signed by : Nasreen Hutchins, PT; Oct 25 2020 1:45PM EST Normal [facility] PT Progress Noteon 1 PT Progress Note [...] Insurance reviewed Visit number: 11 POC: 06/27 [facility] Evaluating therapist Naveen Estrada PT. -->DT M75.41; [...] 5/5 Elbow Flexion: 5/5 Elbow Extension: 5/5 Nurse Researcher: good Palpation: tenderness to palpation in R biceps tendon, pec, UT, rhomboids, mid/low trap, infraspinatus Joint Mobility: GH RUE Posterior: 2/6 Inferior: 3/6 Posture: rounded shoulders, mild forward head . Observation Palpation: R bicipital groove area tenderness. ROM / Joint Mobility (Range of Motion in degrees) Shoulder: (Fabian: P! Denotes Pain with Movement, * Indicates [place] Resistant Otherwise Measurements are in Supine) Flexion: [...] code time is 43 minutes. Therapeutic exercise (63467): timed minutes 30, units 2 . UBE [...] x10 10? hold (X) . Manual Therapy (21786): timed minutes 13, units 1 . Post GH Mobs gr 3 loose pack STW to R pec, infraspinatus, biceps tendon, upper/mid/low trap Passive ROM all planes x8' (X). 09/21/20 [id number] Provided and reviewed for progression. 09/16/20 [id number] Provided and reviewed for HEP. Provided today: [...] above plan of care. Referring Provider Signature ____, Date/Time 'Scores and Scales' Signatures Electronically signed by : Nasreen Hutchins PT; Oct 03 2020 6:10PM EST (Author) Normal [facility] Therapy Re-eval Noteon 10-03 Therapy Re-eval Note [...] Insurance reviewed Visit number: 11 POC: 06/27 [facility] Evaluating therapist Naveen Estrada PT. -->DT M75.41; [...] 5/5 Elbow Flexion: 5/5 Elbow Extension: 5/5 Nurse Researcher: good Palpation: tenderness to palpation in R biceps tendon, pec, UT, rhomboids, mid/low trap, infraspinatus Joint Mobility: GH RUE Posterior: 2/6 Inferior: 3/6 Posture: rounded shoulders, mild forward head . Observation Palpation: R bicipital groove area tenderness. ROM / Joint Mobility (Range of Motion in degrees) Shoulder: (Fabian: P! Denotes Pain with Movement, * Indicates [place] Resistant Otherwise Measurements are in Supine) Flexion: [...] code time is 43 minutes. Therapeutic exercise (74131): timed minutes 30, units 2 . UBE [...] x10 10? hold (X) . Manual Therapy (35981): timed minutes 13, units 1 . Post GH Mobs gr 3 loose pack STW to R pec, infraspinatus, biceps tendon, upper/mid/low trap Passive ROM all planes x8' (X). 09/21/20 [id number] Provided and reviewed for progression. 09/16/20 [id number] Provided and reviewed for HEP. Provided today: [...] above plan of care. Referring Provider Signature ____, Date/Time 'Scores and Scales' Signatures Electronically signed [...] not fallen in the last 6 months. CHNIMAY does not have a fear of falling. [...] anterior/superior. Insurance [facility] Denisval[facility]. M75.41; M25.511 [...] code time is 43 minutes. Therapeutic exercise (96013): timed minutes 33, units 2 . UBE [...] x10 10? hold (X) . Manual Therapy (64918): timed minutes 10, units 1 . Inf AND Post GH Mobs gr 2-3 loose pack x 2' Passive ROM all planes x8' STW to pec (X). 09/21/20 [id number] Provided and reviewed for progression. 09/16/20 [id number] Provided and reviewed for HEP. Provided today: [...] Signatures Electronically signed by : Shawanda Perez, ASSISTANT PROFESSOR OF THEATER; Sep 30 2020 11:45AM EST (Author) Electronically signed by : Nasreen Hutchins, PT; Oct 02 2020 5:56PM EST Normal [facility] PT Progress Noteon 1 [...] Visit number: 9 [employer] Evaluating therapist Naveen Gallegoscarolyn PT. M75.41; M25.511 Subjective Patient reports:. Patient reported 2/10 pain after treatment. Home program performing as directed: Yes. Precautions: Fall Risk: none Pertinent medical HX includes: osteopenia. Treatment Time in clinic started at 09:15 Time in clinic ended at 10:00 Total time in clinic is 45 minutes. Total timed code time is 43 minutes. Therapeutic exercise (97053): timed minutes 33, units 2 . UBE [...] x10 10? hold (X) . Manual Therapy (67675): timed minutes 10, units 1 . Inf AND Post GH Mobs gr 2-3 loose pack x 7' Passive ROM all planes x3' STW to pec (X). 09/21/20 [id number] Provided and reviewed for progression. 09/16/20 [id number] Provided and reviewed for HEP. Provided today: [...] Signatures Electronically signed by : Mary Dyson ASSISTANT PROFESSOR OF THEATER; Sep 28 2020 10:11AM EST (Author) Electronically [...] tolerated progression of ther-ex for Right shoulder stabilization/strength ening this date with min-no increased c/o pain [...] code time is 43 minutes. Therapeutic exercise (36874): timed minutes 33, units 2 . UBE [...] x10 10? hold (X) . Manual Therapy (46424): timed minutes 10, units 1 . Inf AND Post GH Mobs gr 2-3 loose pack x 7' Passive ROM all planes x3' STW to pec (X). 09/21/20 [id number] Provided and reviewed for progression. 09/16/20 [id number] Provided and reviewed for HEP. Provided today: [...] Sep 26 2020 1:00PM EST (Author) Normal [facility] PT Progress Noteon 1 PT Progress Note [...] code time is 45 minutes. Therapeutic exercise (41946): timed minutes 35, units 2 . UBE [...] (P) -hugs x15 (P) . Manual Therapy (70945): timed minutes 10, units 1 . Passive ROM all planes STW to pec. 09/21/20 [id number] Provided and reviewed for progression. 09/16/20 [id number] Provided and reviewed for HEP. Provided today: education and equipment provided . Reistsed Rows and Extension W/ theraloop and blue band. Seated scap retractions Doorway stretches med/low on R Cane ER in supine Demonstrated and verbalized understanding up exercises upon completion of instruction and review of handout. 'Scores and Scales' Signatures Electronically signed by : Mary Dyson, ASSISTANT PROFESSOR OF THEATER; Sep 23 2020 10:26AM EST (Author) Electronically signed by : Nasreen Hutchins, PT; Sep 28 2020 10:03AM EST Normal [facility] PT Progress Noteon PT Progress Note Therapy [...] sharp. Insurance Insurance reviewed Visit number: 6 [facility] Evaluating therapist Naveen Estrada PT. M75.41; M25.511 Subjective Patient reports:. Patient reported 2/10 pain after treatment. Home program performing as directed: Yes. Precautions: Fall Risk: none Pertinent medical HX includes: osteopenia. Treatment Time in clinic started at 09:15 Time in clinic ended at 10:00 Total time in clinic is 45 minutes. Total timed code time is 43 minutes. Therapeutic exercise (32426): timed minutes 35, units 2 . UBE 3' fwd, 3? bwd Joya 3' flex Resisted rows 2 x 10 Purple Resisted extension 2 x 10 purple Resisted [place] (P from walk outs) -ER 2x10 -IR 2x10 -flex 2x10 -ext 2x10 Doorway stretch med/low 10 hold x 5 ea direction Cane ER 5 hold x 10 Foam roll -pec stretch 1? -butter fly x15 (P) -snow aroldo x15 (P) -scissors x15 (P) -hugs x15 (P) Nerve glides Median x10 10? hold . Manual Therapy (56463): timed minutes 8, units 1 . Passive ROM all planes 10'. 09/21/20 [id number] Provided and reviewed for progression. 09/16/20 [id number] Provided and reviewed for HEP. Provided today: education and equipment provided . Reistsed Rows and Extension W/ theraloop and blue band. Seated scap retractions Doorway stretches med/low on R Cane ER in supine Demonstrated and verbalized understanding up exercises upon completion of instruction and review of handout. 'Scores and Scales' Signatures Electronically signed by : Mary Dyson ASSISTANT PROFESSOR OF THEATER; Sep 21 2020 10:20AM EST (Author) Electronically signed by : Nasreen Hutchins, PT; Sep 28 2020 10:02AM EST (Author) Normal [facility] PT Progress Noteon [...] sharp. Insurance Insurance reviewed [facility]. M75.41; M25.511 [...] code time is 44 minutes. Therapeutic exercise (81034): timed minutes 34, units 2 . UBE 2' fwd/2 bwd' Joya 3' flex Doorway stretch med/low 10 hold x 5 ea direction Cane ER 5 hold x 10 Resisted rows 2 x 10 Purple Resisted extension 2 x 10 purple T-band walk outs [place] -ER x10 2 steps -IR x10 2 steps -flex x10 2 steps -ext x10 2 steps Foam roll -pec stretch 1? -butter fly x10 -snow aroldo x10 -scissors x10 -hugs x10 Nerve glides Median x10 . Manual Therapy (72649): timed minutes 10, units 1 . Passive ROM all planes 10'. 09/16/20 [id number] Provided and reviewed for HEP. Provided today: education and equipment provided . Reistsed Rows and Extension W/ theraloop and blue band. Seated scap retractions Doorway stretches med/low on R Cane ER in supine Demonstrated and verbalized understanding up exercises upon completion of instruction and review of handout. 'Scores and Scales' Signatures Electronically signed by : Shawanda Perez ASSISTANT PROFESSOR OF THEATER; Sep 19 2020 12:23PM EST (Author) Electronically [...] sharp. Insurance Insurance reviewed Visit number: 4 [facility] Evaluating therapist Naveen Estrada PT. M75.41; M22.511 Subjective Patient reports:. Patient reported she was [...] code time is 43 minutes. Therapeutic exercise (13823): timed minutes 32, units 2 . UBE 2' fwd/2 bwd' Joya 3' flex Doorway stretch med/low 10 hold x 5 ea direction Cane ER 5 hold x 10 Resisted rows 2 x 10 (Purple) Resisted extension 2 x 10 purple T-band walk outs [place] (P) -ER x10 2 steps -IR x10 2 steps -flex x10 2 steps -ext x10 2 steps Foam roll (N) -pec stretch 1? -butter fly x10 -snow aroldo x10 -scissors x10 -hugs x10 Nerve glides Median x10 . Manual Therapy (58886): timed minutes 11, units 1 . Passive ROM all planes 10'. 09/16/20 [id number] Provided and reviewed for HEP. Provided today: education and equipment provided . Reistsed Rows and Extension W/ theraloop and blue band. Seated scap retractions Doorway stretches med/low on R Cane ER in supine Demonstrated and verbalized understanding up exercises upon completion of instruction and review of handout. 'Scores and Scales' Signatures Electronically signed by : Mary Dyson ASSISTANT PROFESSOR OF THEATER; Sep 16 2020 10:31AM EST (Author) Electronically signed by : Nasreen Hutchins PT; Sep 28 2020 10:01AM EST Normal [facility] PT Progress Noteon PT Progress Note Therapy [...] code time is 43 minutes. Therapeutic exercise (27943): timed minutes 32, units 2 . UBE [...] handout and review 6' . Manual Therapy (86686): timed minutes 11, units 1 . Passive [...] Signatures Electronically signed by : Mary Dyson ASSISTANT PROFESSOR OF THEATER; Sep 14 2020 9:29AM EST (Author) Electronically signed by : Nasreen Hutchins, PT; Sep 15 2020 10:06AM EST Normal [facility] PT Progress Noteon PT Progress Note Therapy [...] tna Evaluating therapist Naveen Estrada PT. M75.41; B70.897 Subjective Patient reports:. States that she has [...] code time is 42 minutes. Therapeutic exercise (32038): timed minutes 32, units 2 . HEP instruction with new handout and review 6' (N) UBE 2' fwd/2 bwd' (N) Joya 3' flex (N) Doorway stretch med/low 10 hold x 5 ea direction (N) Cane ER 5 hold x 10 (N) Resisted rows 2 x 10 (Purple) (N) Resisted extension 2 x 10 Blue (N) . Manual Therapy (95925): timed minutes , units . Passive ROM all planes 10' (N). Provided today: education and equipment provided . Reistsed Rows and Extension W/ theraloop and blue band. Seated scap retractions Doorway stretches med/low on R Cane ER in supine Demonstrated and verbalized understanding up exercises upon completion of instruction and review of handout. 'Scores and Scales' Signatures Electronically signed by : Shawanda Perez ASSISTANT PROFESSOR OF THEATER; Sep 09 2020 10:10AM EST (Author) Electronically signed by : Nasreen Hutchins PT; Sep 11 2020 7:27PM EST Normal [facility] PT Initial Evaluationon 08-13 PT Initial Evaluation [...] shldr. Insurance Insurance reviewed [facility]: [facility]. M75.41; P35.511 Subjective Current Episode of Functional Impairment and/or [...] P! Denotes Pain with Movement, * Indicates [place] Resistant Otherwise Measurements are in Supine) Flexion: [...] PROM all dir pulleys 2'. Evaluation Code: 04019 PT Eval: Low Complexity, 40 min(s). Timed: 95528 Manual Therapy, 10 min(s), 1 unit(s). Contacts for Physician Signature First attempt date: 09/07/20. Referring Provider Signature: I am in agreement with the above plan of care. Referring Provider Signature ____, Date/Time Signatures Electronically signed by : Chase Estrada PT; Sep 07 2020 11:20AM EST (Author) Normal [facility] ECG 12-LEADon 09-22-2019 Atrial Rate [facility] P [place] [facility] P-R Interval [facility] Q-T Interval [facility] Q-T Interval (corrected) [facility] QRS Duration [facility] QTC Calculation ([facility]) [facility] R [place] [facility] T [place] [facility] Ventricular Rate [facility] Alcohol, Medicalon 0 Ethanol [Mass/Vol] mg/dL <10.00 mg/dL [facility] Comment on above: Alcohol cutoff: <10. 00 mg/dL = None Detected Interpretation and review of laboratory results Normal [facility] CBC WITH AUTO DIFFERENTIALon 09-06-2019 Basophils (Bld) [#/Vol] 0.04 10*3/uL [facility] Basophils/100 WBC (Bld) 0.6 % [facility] Eosinophils (Bld) [#/Vol] 0.10 10*3/uL [facility] Eosinophils/100 WBC (Bld) 1.5 % [facility] Erythrocyte distribution width (RBC) [Entitic vol] 13.0 % 11.6 - 14.8 % [facility] Hematocrit (Bld) [Volume fraction] 42.4 % 36 - 46 % [facility] Hemoglobin (Bld) [Mass/Vol] 14.0 g/dL 12 - 16 g/dL [facility] Immature granulocytes (Bld) [#/Vol] 0.02 10*3/uL [facility] Immature granulocytes/100 WBC (Bld) 0.30 % [facility] Comment on above: The IG parameter is the percentage of metamyelocytes, myelocytes, and promyelocytes. Lymphocytes (Bld) [#/Vol] 1.89 10*3/uL [facility] Lymphocytes/100 WBC (Bld) 28.8 % [facility] MCH (RBC) [Entitic mass] 30.1 pg 26 - 34 pg [facility] MCHC (RBC) [Mass/Vol] 33.0 g/dL 31 - 37 g/dL [facility] MCV (RBC) [Entitic vol] 91.2 fL 80 - 100 fL [facility] Monocytes (Bld) [#/Vol] 0.52 10*3/uL [facility] Monocytes/100 WBC (Bld) 7.9 % [facility] Neutrophils (Bld) [#/Vol] 3.99 10*3/uL [facility] Neutrophils/100 WBC (Bld) 60.9 % [facility] Nucleated RBC (Bld) [#/Vol] 0.00 10*3/uL [facility] Nucleated RBC/100 WBC (Bld) [Ratio] 0.0 % [facility] Platelet mean volume (Bld) [Entitic vol] 10.3 fL 9 - 15.5 fL [facility] Platelets (Bld) [#/Vol] 258 10*3/uL [facility] RBC (Bld) [#/Vol] 4.65 10*6/uL [facility] WBC (Bld) [#/Vol] 6.56 10*3/uL [facility] on 09-06-2019 Anion gap [Moles/Vol] 13 mmol/L 10 - 2 0 mmol/L [facility] Chloride [Moles/Vol] 104 mmol/L 98 - 10 8 mmol/L [facility] Creatinine [Mass/Vol] 0.80 mg/dL 0.6 - 1.2 mg/dL [facility] GFR/1.73 sq M predicted among non-blacks MDRD (S/P/Bld) [Vol rate/Area] The eGFR should be used for monitoring renal function only and not for medication dosing. [facility] GFR/1.73 sq M.predicted CKD-EPI (S/P/Bld) [Vol rate/Area] 76 >=60 mL/min/1.73 m2 [facility] Glucose [Mass/Vol] 108 mg/dL High 65 - 99 mg/dL [facility] HCO3 [Moles/Vol] 26 mmol/L 21 - 32 mmol/L [facility] Interpretation and review of laboratory results Abnormal [facility] Potassium [Moles/Vol] 3.4 mmol/L Low 3.5 - 5.1 mmol/L [facility] Sodium [Moles/Vol] 140 mmol/L 135 - 145 mmol/L [facility] Urea nitrogen [Mass/Vol] 11 mg/dL 8 - 25 mg/dL [facility] Urea nitrogen/Creatinine [Mass ratio] 13.8 mg/mg [facility] D-DIMER, QUANTITATIVEon 08-13 Fibrin D-dimer FEU (PPP) [Mass/Vol] 0.43 0.27 - 0.49 mcg/mL FEU [facility] Interpretation and review of laboratory results Normal [facility] A D-dimer concentration of <0.5 micrograms per milliliter FEU is considered a low probability for pulmonary embolus (PE) and deep venous thrombosis (DVT). Results of this test should always be interpreted in conjunction with the patient's medical history,clinical presentation, and other findings. Clinical diagnosis should not be based on the results of the D-dimer alone. [facility] DRUGS OF ABUSE SCREEN, URINE on 09-06-2019 Amphetamines Ql (U) None Detected None Detected [facility] Comment on above: Urine Amphetamine Cu toff: < 1000 ng/mL = None Detected Barbiturates Screen Ql (U) None Detected None Detected [facility] Comment on above: Urine Barbiturates C utoff: < 200 ng/mL = None Detected Benzodiazepines Ql (U) None Detected None Detected [facility] Comment on above: Urine Benzodiazepine Cutoff: < 200 ng/mL = None Detected Cannabinoids Screen Ql (U) None Detected None Detected [facility] Comment on above: Urine Cannabinoids C utoff: < 50 ng/mL = None Detected Cocaine Ql (U) None Detected None Detected [facility] Comment on above: Urine Cocaine Cutoff : < 300 ng/mL = None Detected Interpretation and review of laboratory results Normal [facility] Methadone Screen Ql (U) None Detected Non e Detected [facility] Comment on above: Urine Methadone Cuto ff: < 300 ng/mL = None Detected Opiates Screen Ql (U) None Detected None Detected [facility] Comment on above: Urine Opiates Cutoff : < 300 ng/mL = None Detected Oxycodone Ql (U) None Detected None Detected [facility] Comment on above: Urine Oxycodone Cuto ff: < 100 ng/mL = None Detected Screen results shoul d be used for treatment purposes only. [facility] Hepatic Function Panel (LFT) on 09-06-2019 Albumin [Mass/Vol] 4.1 g/dL 3.2 - 5.2 g/dL [facility] ALP [Catalytic activity/Vol] 82 U/L 40 - 150 U/L [facility] ALT [Catalytic activity/Vol] 22 U/L 14 - 65 U/L [facility] AST [Catalytic activity/Vol] 15 U/L 0 - 45 U/L [facility] Bilirubin [Mass/Vol] 0.4 mg/dL 0 - 1.3 mg/dL [facility] Bilirubin.conjugated [Mass/Vol] mg/dL 0 - 0.4 mg/dL [facility] Protein [Mass/Vol] 7.9 g/dL 6 - 8 g/dL [facility] alth Lipaseon 09-06-2019 Lipase [Catalytic activity/Vol] 186 U/L 73 - 393 U/L [facility] Otheron 09-06-2019 Interpretation and review of laboratory results Normal [facility] TROPONINon 09-06-2019 Troponin I.cardiac [Mass/Vol] Normal [facility] Troponin I.cardiac [Mass/Vol] ng/mL <=45 ng/L [facility] TSH with Reflex Free T4on TSH Qn 0.86 m[IU]/L [facility] URINALYSISon 09-06-2019 Bacteria Auto Ql (U) None Seen None Se en /hpf [facility] Bilirubin Ql (U) Negative Negative [facility] th Clarity Refractometry automated (U) Clear Clear [facility] Color (U) Yellow Colorless, Yellow [facility] Glucose Auto test strip (U) [Mass/Vol] Negative Negative mg/dL [facility] Hemoglobin Auto test strip Ql (U) Negative Negative [facility] Hyaline casts Auto (Urine sed) [#/Area] 3-5 Abnormal 0 - 2 /lpf [facility] Interpretation and review of laboratory results Abnormal [facility] Ketones (U) [Mass/Vol] Negative Negat tiffanie mg/dL [facility] Leukocyte esterase Auto test strip Ql (U) Negative Negative [facility] Mucus Auto (Urine sed) [#/Area] Many Abnormal None Seen, Rare /lpf [facility] Nitrite Auto test strip Ql (U) Negative Negative [facility] pH (U) 5.0 [pH] [facility] Protein (U) [Mass/Vol] Negative Negat tiffanie mg/dL [facility] RBC Auto (Urine sed) [#/Area] <1 [facility] Specific gravity (U) [Rel density] 1.009 [facility] Urobilinogen (U) [Mass/Vol] <2.0 <2.0 mg/dL [facility] WBC Auto (Urine sed) [#/Area] 2 [facility] Microscopic examination is performed on all urinalysis samples and only positive findings are reported. The test for blood on the chemical analytic portion of urinalysis may also be positive due to hemoglobinuria and myoglobinuria and if red blood cells are present they are quantified by microscopic examination. [facility] XR Chest 1 Viewon 09-06-2019 Interface, Rad [...] No acute findings. DPR/mjr Workstation ID: [id number] [facility] 1. No acute findings . DPR/mjr Workstation ID: [id number] [facility] EXAMINATION: XR CHES T PA/AP 09/06/2019 5:06 [...] normal and the osseous structures appear intact. [facility] Mamm Screen w/CAD if perf ormed bilaton 04-16-2019 [place] Mamm Screen w/CAD if performed bilat Exam Date/Time: 04/16/2019 09:16 EDT Reason for Exam: SCREENING Report STUDY: Digital mammography screening; 04/16/2019 9:16 am ACCESSION NUMBER(S): [id number] ORDERING CLINICIAN: Dipak Seth INDICATION: Screening. COMPARISON: [...] Category 1-Negative Recommendation: Normal interval follow-up Normal [facility] US Extremity Non-Vascular Ri [facility] 03-06-2019 [place] Extremity Non-Vascular Right Exam Date/Time: 03/05/2019 15:20 EDT Reason for Exam: RIGHT AXILLAY LYMPHADENOPATHY Report STUDY: US Extremity Non-Vascular Right; 03/05/2019 3:20 pm INDICATION: RIGHT AXILLARY LYMPHADENOPATHY. COMPARISON: None. ACCESSION NUMBER(S): [id number] ORDERING CLINICIAN: Ernestina Ayoub TECHNIQUE: Multiple grayscale [...] by: Jose Patterson MD Technologist: ESTEBAN Normal [facility] XR Wrist 3+ Views Righton XR Wrist 3+ Views Right Exam Date/Time: 11/25/2018 09:49 EDT Reason for Exam: right wrist pain Report STUDY: XR Wrist 3+ Views Right; 11/25/2018 9:49 am INDICATION: right wrist pain. COMPARISON: None. ACCESSION NUMBER(S): [id number] ORDERING CLINICIAN: Dipak Seth FINDINGS: There is no acute fracture or dislocation. The carpal bones are normal alignment. There is normal bony mineralization. There is no soft tissue swelling or joint effusion. IMPRESSION: No acute fracture. FINAL REPORT Dictated: 11/26/2018 11:46 am Jaylon Mercer MD Signed (Electronic Signature): 11/26/2018 11:46 am Signed by: Jaylon Mercer MD Technologist: STANISLAW [facility] Vital Signs Date Time Vital Sign Value Performing Clinician Facility 12-03-2024 14:37-0400 Body height 160 cm Isabella Dixon MD Work Phone: [facility] 12-03-2024 14:37-0400 Body mass index (BMI) [Ratio] 24.53 kg/m2 Isabella Dixon MD Work Phone: [facility] 12-03-2024 14:37-0400 Body weight 62.82 kg Isabella Dixon MD Work Phone: [facility] 12-03-2024 14:37-0400 Diastolic blood pressure 65 mm[Hg] Isabella Dixon MD Work Phone: [facility] 12-03-2024 14:37-0400 Heart rate 69 /min Isabella Dixon MD Work Phone: [facility] 12-03-2024 14:37-0400 SaO2% (BldA) [Mass fraction] 97 % Isabella Dixon MD Work Phone: [facility] 12-03-2024 14:37-0400 Systolic blood pressure 129 mm[Hg] Isabella Dixon MD Work Phone: [facility] 07-31-2024 14:03-0500 Diastolic blood pressure 69 mm[Hg] Jason Vidales MD Work Phone: [facility] 07-31-2024 14:03-0500 Heart rate 57 /min Jason Vidales MD Work Phone: [facility] 07-31-2024 14:03-0500 SaO2% (BldA) [Mass fraction] 96 % Jason Vidales MD Work Phone: [facility] 07-31-2024 14:03-0500 Systolic blood pressure 119 mm[Hg] Jason Vidales MD Work Phone: [facility] 07-31-2024 11:55-0500 Body temperature 97.9 [degF] Jason Vidales MD Work Phone: [facility] 07-31-2024 11:55-0500 Respiratory rate 16 /min Jason Vidales MD Work Phone: [facility] 07-30-2024 18:29-0500 Body height 160 cm Jason Vidales MD Work Phone: [facility] 07-30-2024 18:29-0500 Body mass index (BMI) [Ratio] 24.45 kg/m2 Jason Vidales MD Work Phone: [facility] 07-30-2024 18:29-0500 Body weight 62.6 kg Jason Vidales MD Work Phone: [facility] 01-24-2022 10:08-0400 Body height 160 cm Dipak Seth Other Phone: [facility] 01-24-2022 10:08-0400 Body temperature 97.88 [degF] Dipak Seth Other Phone: [facility] 01-24-2022 10:08-0400 Diastolic blood pressure 61 mm[Hg] Dipak Seth Other Phone: [facility] 01-24-2022 10:08-0400 Heart rate 73 /min Dipak Seth Other Phone: [facility] 01-24-2022 10:08-0400 Respiratory rate 16 /min Dipak Seth Other Phone: [facility] 01-24-2022 10:08-0400 SaO2% (BldA) [Mass fraction] 98 % Dipak Seth Other Phone: [facility] 01-24-2022 10:08-0400 Systolic blood pressure 117 mm[Hg] Dipak Seth Other Phone: [facility] 10-28-2021 10:40-0400 Body height 160 cm Dipak Seth Other Phone: [facility] 10-28-2021 10:40-0400 Body temperature 98.78 [degF] Dipak Seth Other Phone: [facility] 10-28-2021 10:40-0400 Diastolic blood pressure 71 mm[Hg] Dipak Seth Other Phone: [facility] 10-28-2021 10:40-0400 Heart rate 84 /min Dipak Seth Other Phone: [facility] 10-28-2021 10:40-0400 Respiratory rate 16 /min Dipak Seth Other Phone: [facility] 10-28-2021 10:40-0400 SaO2% (BldA) [Mass fraction] 96 % Dipak Seth Other Phone: [facility] 10-28-2021 10:40-0400 Systolic blood pressure 108 mm[Hg] Dipak Seth Other Phone: [facility] 06-08-2021 13:46-0400 Body height 160 cm Dipak Seth Other Phone: [facility] 06-08-2021 13:46-0400 Body temperature 98.06 [degF] Dipak Seth Other Phone: [facility] 06-08-2021 13:46-0400 Diastolic blood pressure 71 mm[Hg] Dipak Seth Other Phone: [facility] 06-08-2021 13:46-0400 Heart rate 75 /min Dipak Seth Other Phone: [facility] 06-08-2021 13:46-0400 Respiratory rate 14 /min Dipak Keithmarisela Other Phone: [facility] 06-08-2021 13:46-0400 SaO2% (BldA) [Mass fraction] 98 % Dipak Mckeonphilippe Other Phone: [facility] 06-08-2021 13:46-0400 Systolic blood pressure 129 mm[Hg] Dipak Mckeonphilippe Other Phone: [facility] 09-22-2019 08:57-0500 BMI (Body Mass Index) 23.72 kg/m2 Kimo [facility] 09-22-2019 08:57-0500 Body weight 60.74 kg Kimo [facility] 09-22-2019 08:57-0500 BP Diastolic 66 mm[Hg] Kimo [facility] 09-22-2019 08:57-0500 BP Systolic 106 mm[Hg] Kimo [facility] 09-22-2019 08:57-0500 Height 160 cm Kimo [facility] 09-22-2019 08:57-0500 Pulse (Heart Rate) 70 /min Kimo [facility] 09-22-2019 08:57-0500 Pulse Oximetry 96 % Kimo [facility] 09-06-2019 19:00-0500 BP Diastolic 60 mm[Hg] [facility] 09-06-2019 19:00-0500 BP Systolic 129 mm[Hg] [facility] 09-06-2019 19:00-0500 Pulse (Heart Rate) 73 /min [facility] 09-06-2019 19:00-0500 Pulse Oximetry 98 % [facility] 09-06-2019 16:51-0500 BMI (Body Mass Index) 23.56 kg/m2 [facility] 09-06-2019 16:51-0500 Body Temperature 97.59 [degF] [facility] 09-06-2019 16:51-0500 Body weight 60.[address] [facility] 09-06-2019 16:51-0500 Height 160 [facility] 16:51-0500 Respiratory Rate 16 /min [facility] En[facility] Encounter Date Encounter Type Care Provider Facility Start: 04-01-2025 End: 04-01-2025 ambulatory Trang Carr MD Work Phone: -[facility] Start: 04-01-2025 End: 04-01-[address] Trang Carr MD -[facility] Start: 04-01-2025 End: 04-01-2025 ambulatory Chalon Lilly Facility:[facility] Start: 03-23-2025 End: 03-23-[address] Trang Carr MD -[facility] Start: 03-23-2025 End: 03-23-2025 ambulatory Trang Carr MD Work Phone: -Laboratory [facility] Start: 03-10-2025 End: 03-10-2025 ambulatory Trang Carr MD Work Phone: -Cat Scan [facility] Start: 03-10-2025 End: 03-10-[address] Trang Carr MD -Cat Scan [facility] Work Phone: Start: 03-10-2025 End: 03-10-2025 ambulatory Chalon Lilly Facility:[facility] Start: 02-10-2025 End: 02-10-2025 ambulatory Trang Carr MD Work Phone: [facility] Start: 02-10-2025 End: 02-10-[address] Trang Carr MD [facility] Work Phone: Start: 02-10-2025 End: 02-10-2025 ambulatory Chalon Lilly Facility:[facility] Start: 01-25-2025 End: 01-25-2025 Follow-up encounter Isabella Dixon MD Work Phone: [facility] Comment on above: Ambulatory ECG Event Monitor Start: 01-19-2025 End: 01-19-2025 ambulatory Trang Carr MD Work Phone: [facility] Work Phone: Start: 01-19-2025 End: 01-19-[address] Trang Carr MD -Laboratory [facility] Start: 01-19-2025 End: 01-19-2025 ambulatory Trang Carr Facility:[facility] Start: 01-18-2025 Encounter for other specified special examinations Trang Carr [facility] Start: 01-13-2025 End: 01-13-2025 ambulatory Trang Carr MD Work Phone: [facility] Work Phone: Start: 01-13-2025 End: 01-13-[address] Trang Carr MD -Outpatient Breast Imaging Work Phone: Start: 01-12-2025 End: 01-12-2025 Patient encounter procedure Molly Kirby OD Work Phone: Optometry Comment on above: Myopia of both eyes (Primary Dx); Regular astigmatism of both eyes; Presbyopia Start: 01-12-2025 End: 01-13-2025 ambulatory MOLLY KIRBY Facility:[facility] Start: 12-04-2024 End: 12-04-[address] Pb Corrales MD -Laboratory Specimen Work Phone: Start: 12-04-2024 End: 12-04-2024 Refill Kit Wright MA [facility] Comment on above: Medication Refill Start: 12-03-2024 End: 12-03-2024 Office outpatient new 45 minutes Darby Velasco CNP Work Phone: [facility] Comment on above: Palpitations (Primar y Dx); Chest pain, unspecified type Start: 12-03-2024 End: 12-04-2024 Refill Nita Null RN [facility] Comment on above: Medication Refill Start: 11-28-2024 End: 11-28-2024 Emergency department patient visit CHALON GALINA [facility] Start: 11-24-2024 End: 11-24-2024 ambulatory Trang Carr MD Work Phone: [facility] Work Phone: Start: 11-24-2024 End: 11-24-2024 Patient encounter procedure Aroldo Cespedes MAORI PHYSIOTHERAPIST-C -Laboratory, [facility] Start: 11-24-2024 End: 11-24-2024 ambulatory Trang Lilly Facility:[facility] Start: 07-30-2024 End: 07-31-2024 Emergency department patient visit Yisel Josue MD Work Phone: [facility] Start: 07-30-2024 End: 07-31-2024 ambulatory JERE AJ [facility] Start: 06-19-2024 End: 06-19-2024 ambulatory Trang Lilly Facility:[facility] Start: 06-11-2024 End: 06-11-2024 [facility] Start: 05-07-2024 End: 05-11-2024 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 Sammie Hilario Facility:[id number] Start: 11-23-2022 ambulatory Ms. 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 Dipak Seth Facility:[id number] Start: 01-24-[address] Dipak Seth Facility:[id number] Start: 01-24-2022 End: 01-24-2022 Emergency department patient visit Lucinda Vizcarra [facility] 01 Start: 10-28-2021 End: 10-28-2021 Emergency department patient visit Lucinda Vizcarra [facility] 01 Start: 06-08-2021 End: 06-08-2021 Emergency department patient visit Lucinda Vizcarra [facility] Start: 10-31-2020 [facility] Work Phone: Start: 10-26-2020 Patient encounter procedure Nasreencarmen Hutchins [facility] Work Phone: Start: 10-19-2020 Patient encounter procedure [facility] Work Phone: Start: 10-14-2020 Patient encounter procedure Nasreencarmen Hutchins [facility] Work Phone: Start: 10-05-2020 Patient encounter procedure Nasreencarmen Hutchins [facility] Work Phone: Start: 10-03-2020 Patient encounter procedure Nasreen Hutchins [facility] Work Phone: Start: 09-30-2020 Patient encounter procedure Nasreen Hutchins [facility] Work Phone: Start: 09-28-2020 Patient encounter procedure Nasreen Hutchins [facility] Work Phone: Start: 09-26-2020 Patient [facility] [place] Work Phone: Start: 09-23-2020 [facility] [place] Work Phone: Start: 09-21-2020 [facility] [place] Work Phone: Start: 09-19-2020 [facility] [place] Work Phone: Start: 09-16-2020 [facility] [place] Work Phone: Start: 09-14-2020 [facility] [place] Work Phone: Start: 09-09-2020 [facility] [place] Work Phone: Start: 09-07-2020 [facility] [place] Work Phone: Start: 09-22-2019 End: 09-22-2019 Office outpatient new 45 minutes Yisel Josue Work Phone: [facility] Comment on above: Cardiac arrhythmia, unspecified cardiac arrhythmia type (Primary Dx); Palpitations; Chest discomfort Start: 09-11-2019 End: 09-11-2019 Subsequent hospital visit by physician Dipak Seth Work Phone: [facility] Comment on above: Tachycardia Start: 09-06-2019 End: 09-06-2019 Emergency department patient visit Yisel Josue Work Phone: [facility] Comment on above: Palpitations (Primar y Dx); Hypokalemia Procedures Date Procedure Procedure Detail Performing Clinician Start: 03-23-2025 Vitamin D, 25-hydrox y measurement Trang Carr MD Work Phone: Comment on above: Vitamin D StatusDefi ciency: <20 ng/mL (50nmol/L)Insufficiency: 20-30 ng/mL (50-75 nmol/L)Sufficiency: 30-100 ng/mL (75-250 nmol/L)Toxicity: >100 ng/mL (>250 nmol/L) Start: 03-10-2025 CT of soft tissues o f neck with contrast Trang Carr MD Work Phone: Start: 02-10-2025 MRI of orbit, face a nd neck with contrast Trang Carr MD Work Phone: Start: 01-19-2025 JUJU measurement Trang Carr MD Work Phone: Comment on above: Performed at: [address] [id number] Director: Sergio Tovar PhD, Phone: [phone] at: - [facility] [id number] Director: Amaya Ingram MD, Phone: [phone] Start: 01-19-2025 Antibody to lupus La protein measurement Trang Carr MD Work Phone: Start: 01-19-2025 Antibody to SS-A measurement Trang Carr MD Work Phone: Start: 01-19-2025 Laboratory data interpretation Trang Carr MD Work Phone: Comment on above: No lupus anticoagula nt was detected.Performed at: [facility] [employer] [id number] Director: Amaya Ingram MD, Phone: [phone] Start: 01-19-2025 Lupus anticoagulant assay, platelet neutralization [...] EBV never develop antibodies to EBNA.Performed at: [facility] [address] [employer] [id number] Director: Sergio Tovar PhD, Phone: [phone] Start: 01-13-2025 Immunoglobulin M measurement Trang Carr [...] in 7 to 14 days isrecommended.Performed at: [address] [id number] Director: Sergio Tovar PhD, Phone: [phone] Start: 01-13-2025 Screening mammography C livan Carr MD Work Phone: Start: 12-04-2024 Bacteria identification test Trang Carr MD Work Phone: Start: 07-31-2024 Cta hrt cornry art/b ypass grfts contrst 3d post Darby Velasco [employer] Work Phone: Start: 07-31-2024 Lipid 1996 panel - S mary lou or Plasma Molly Kirby OD Work Phone: Start: 07-31-2024 Assay of troponin quantitative Abebe Penaloza Salazar [employer] Work Phone: Start: 07-31-2024 Lipid panel Darbykajal Velasco [employer] Work Phone: Start: 07-30-2024 Assay of troponin quantitative Abebe Lincoln [facility] Work Phone: Start: 07-30-2024 Electrocardiogram Yisel Josue [...] Phone: Start: 09-22-2019 12 lead ECG Kimo caraballo Work Phone: Start: 09-06-2019 Drugs of abuse urine screening test Yisel Buimanda Caraballooh Work Phone: Start: 09-06-2019 Urinalysis Yisel Buiwolfgang Caraballooh Work Phone: Start: 09-06-2019 Radiologic exam ches t single view Yisel Thomasescobar Josue Work Phone: Start: 09-06-2019 Basic metabolic 1998 panel - Serum or Plasma Yisel Buimanda Josue Work Phone: Start: 09-06-2019 Complete blood count with white cell differential, automated Yisel Josue Work Phone: Start: 09-06-2019 Complete blood count with white cell differential, manual Yisel Buidiescobar CrisostomoLiat Work Phone: Start: 09-06-2019 D-dimer assay, quantitative Yisel Josue Work Phone: Start: 09-06-2019 Ethanol [Mass/volume ] in Serum or Plasma Yisel Buimanda Caraballooh Work Phone: Start: 09-06-2019 Hepatic function 200 0 panel - Serum or Plasma Yisel Crisostomolloh Work Phone: Start: 09-06-2019 Lipase [Enzymatic activity/volume] in Serum or Plasma Yisel Buimanda Caraballooh Work Phone: Start: 09-06-2019 Thyrotropin [Units/v olume] in Serum or Plasma by Detection limit <= 0.005 mIU/L Yisel Mollymanda Josue Work Phone: Start: 09-06-2019 Troponin measurement Ze pamela Mollymanda Josue Work Phone: Start: 02-17-2015 Mammography Dipak Keithvasquez otero Plan of Treatment Date Care Activity Detail Author Start: 10-02-2033 Tetanus vaccination Tetanus: Every 10yrs [facility] Start: 10-02-2033 Urine microalbumin profile DTaP,Tdap,Td Vaccine (2 - Td or Tdap) [facility] Start: 07-31-2029 Lipid panel Lipid Screening [facility] Start: 11-29-2027 Diabetes Screening Diabetes Screening [facility] Start: 02-22-2026 Diabetes Screening Diabetes Screening [facility] Start: 04-12-2025 Influenza vaccination Influenza Vaccine (Season Ended) [facility] Start: 01-13-2025 Serum immunofixation [facility] Start: 08-12-2024 Advance Directive Discussion Advance Directive Discussion [facility] Start: 04-12-2024 COVID-19 Vaccine ( season) COVID-19 Vaccine ( season) [facility] Start: 04-12-2024 Influenza vaccination [facility] Start: 01-02-2024 Covid-19 Vaccine ( season) Covid-19 Vaccine ( season) [facility] Start: 12-13-2023 Screening for malignant neoplasm of breast [facility] Start: 08-12-2023 Advance Directive Discussion Advance Directive Discussion [facility] Start: 08-12-2023 Behavioral Health Screening Behavioral Health Screening [facility] Start: 08-12-2022 ADVANCE DIRECTIVE DISCUSSION ADVANCE DIRECTIVE DISCUSSION [facility] Start: 08-12-2022 DEPRESSION ASSESSMENT DEPRESSION ASSESSMENT [facility] Start: 05-17-2021 Pneumococcal Vaccine: 50+ (2 of 2 - PPSV23) Pneumococcal Vaccine: 50+ (2 of 2 - PPSV23) [facility] Start: 05-17-2021 Pneumococcal Vaccine: 65+ (2 of 2 - PPSV23 or PCV20) Pneumococcal Vaccine: 65+ (2 of 2 - PPSV23 or PCV20) [facility] Start: 07-12-2020 Pneumococcal Vaccine: Age 50+ (2 of 2 - PPSV23) Pneumococcal Vaccine: Age 50+ (2 of 2 - PPSV23) [facility] Start: 07-12-2020 Pneumococcal Vaccine: Age 50+ (2 of 2 - PPSV23, PCV20, or PCV21) Pneumococcal Vaccine: Age 50+ (2 of 2 - PPSV23, PCV20, or PCV21) [facility] Start: 09-22-2019 End: 09-22-2019 Office Visit 09/22/2019 Office Visit Cardiology Yisel Josue MD [address] [place] [address] [phone] Kimo Vasquez MD [address] [place] [address] [phone] [facility] Start: 04-12-2019 Influenza vaccination given SEQUENTIAL INFLUENZA VACCINE (#1) [facility] Start: 02-18-2016 Screening mammography Mammogram [facility] Start: 12-03-2015 BONE DENSITY BONE DENSITY [facility] Start: 12-03-2015 Fall risk assessment Falls Risk Assessment [facility] Start: 12-03-2015 Pneumococcal vaccination PNEUMOCOCCAL VACCINE AGE 65+ (1 of 2 - PCV13) [facility] Start: 12-03-2015 PNEUMOCOCCAL: 65+ (1 - PCV) PNEUMOCOCCAL: 65+ (1 - PCV) [facility] Start: 12-03-2015 Screening for osteoporosis Bone Density Screening [facility] Start: 2010 Respiratory Syncytial Virus Immunization: Risk, 60-74 Risk, or 75+ (1 - Risk 60-74 years 1-dose series) Respiratory Syncytial Virus Immunization: Risk, 60-74 Risk, or 75+ (1 - Risk 60-74 years 1-dose series) [facility] Start: 2000 Administration of herpes zoster vaccine Zoster Vaccines (1 of 2) [facility] Start: 2000 Screening for malignant neoplasm of colon Flexible sigmoidoscopy [facility] Start: 2000 SHINGRIX VACCINE (1 of 2) SHINGRIX VACCINE (1 of 2) [facility] Start: 12-03-1995 COLOGUARD (FIT-DNA) COLOGUARD (FIT-DNA) [facility] Start: 12-03-1995 Colonoscopy COLONOSCOPY [facility] Start: 12-03-1995 COLORECTAL CANCER SCREENING COLORECTAL CANCER SCREENING [facility] Start: 12-03-[address] COLONOGRAPHY [facility] Start: 12-03-1995 DIABETES SCREEN DIABETES SCREEN [facility] Start: 12-03-1995 FECAL OCCULT BLOOD FECAL OCCULT BLOOD [facility] Start: 12-03-1995 Lipid panel Lipid Screening [facility] Start: 12-03-1995 LIPID SCREEN LIPID SCREEN [facility] Start: 12-03-1995 Screening for malignant neoplasm of colon [facility] Start: 12-03-1995 SIGMOIDOSCOPY SIGMOIDOSCOPY [facility] Start: 1990 Mammography MAMMOGRAM [facility] Start: 1969 Urine microalbumin profile DTAP,TDAP,TD (1 - Tdap) [facility] Start: 1968 Anxiety Screening Anxiety Screening [facility] Start: 1968 Depression Screening Depression Screening [facility] Start: 1968 HEPATITIS C SCREENING HEPATITIS C SCREENING [facility] Start: 1968 Hepatitis C screening Hepatitis C Screening [facility] Start: 1962 Depression screening using PHQ-9 (Patient Health Questionnaire 9) score Depression Screening/Follow-Up (PHQ-2/9) [facility] Start: 1953 History and physical examination, annual for health maintenance Wellness Visit [facility] Start: 1953 Medicare Wellness Visit Medicare Wellness Visit [facility] Start: 1950 Fall risk assessment Falls Risk Assessment [facility] Start: 1950 Hepatitis C antibody, confirmatory test HEPATITIS C SCREENING [facility] Start: 1950 Screening for malignant neoplasm of colon [facility] Start: 1950 Screening for osteoporosis Dexa Scan [facility] Start: 1950 Screening mammography Mammogram [facility] Start: 1950 Tetanus vaccination TETANUS EVERY 10 YR [facility] End: 09-11-2019 48 hour ambulatory electrocardiographic monitoring Holter monitor - 48 hour Cardiac Services Routine Tachycardia Once for 1 Occurrences starting 09/11/2019 until 09/11/2019 [facility] Comment on above: Once for 1 Occurrences starting 09/11/19 until 09/11/2019 Ambulatory ECG Event Monitor Amb ulatory ECG Event Monitor Cardiac Services Routine Chest pain, unspecified type Palpitations Ordered: 12/03/2024 [facility] Work Phone: Comment on above: Ordered: 12/03/2024 CTA Heart and [place] ry arteries WO and W contrast IV CT CCTA Heart With And Without Contrast Imaging Routine 07/31/2024 10:30 AM EST [facility] Work Phone: Aquilino Welch virus c apsid IgG Ab [Units/volume] in Serum [facility] Aquilino Welch virus c apsid IgM Ab [Units/volume] in Serum [facility] Aquilino Welch virus n uclear IgG Ab [Units/volume] in Cerebral spinal fluid [facility] Aquilino-Welch virus s erologic test [facility] IgA [Mass/volume] in Serum or Plasma [facility] IgG [Mass/volume] in Serum or Plasma [facility] IgM [Mass/volume] in Serum or Plasma [facility] Immunizations Immunization Date Immunization Notes Care Provider [facility] 05-31-2022 influenza virus vaccine, unspecified formulation Mollydrew Masshalom OD Work Phone: [facility] Payers Date Payer Category Payer Self-pay 2021 Medicare AETNA MEDICARE A ETNA MEDICARE PPO [id number] 2021-Present [phone] [address] [place] [address] PPO [id number] 2020 Private Health Insurance V[employer]ICE PLAN [facility] Address: [address] [place], [place] [address] [address] [place] [address] [id number] 2020 Unknown [id number] 2019 Medicare AETNA [facility] AETNA MEDICARE PLAN (PPO) [id number] 2019-Present [id number] 2019 Medicare PPO AETNA MEDICARE P LIN (PPO) [id number] 2015 Private Health Insurance [id number] 2015 Unknown AETNA\AETNA BEATRIZ MACIAS 1950 Unknown [id number] [id number]. 1069 1950 Unknown [id number] 2.16840.1.409621.3.579.2. 106 1950 Unknown [id number] 2.16.840.1.404081.3.579.2. 1069 1950 Unknown [id number] 2.16840.1.514091.3.579.2. 106 1950 Unknown [id number] 2.16840.1.054326.3.579.2. 106 1950 Unknown [id number] 2.16840.1.974825.3.579.2. 902 1950 Unknown [id number] 2.16.840.1.299392.3.579.2. 903 1950 Unknown [id number] 2.16.840.1.810442.3.579.2. 903 1950 Unknown [id number] 2.16.840.1.892253.3.579.2. 903 Unknown [id number] 2.16.840.1.264823.3.579.2. 462 Unknown [id number] 2.16.840.1.722077.3.579.2. 462 Unknown [id number] 2.16.840.1.651620.3.579.2. 462 Unknown [id number] 2.16.840.1.275438.3.579.2. 462 Unknown [id number] 2.16.840.1.865218.3.579.2. 462 Unknown [id number] 2.16.840.1.579107.3.579.2. 462 Unknown [id number] 2.16.840.1.934401.3.579.2. 462 Unknown [id number] 2.16.840.1.270388.3.579.2. 462 Unknown [id number] 2.16.840.1.393623.3.579.2. 462 Unknown [id number] 2.16.840.1.934778.3.579.2. 462 Unknown [id number] 2.16.840.1.548306.3.579.2. 462 Unknown [id number] 2.16.840.1.089302.3.579.2. 462 Social History Date Type Detail Facility Start: 09-08-2014 End: 09-06-2019 Tobacco smoking status NHIS Never smoker [facility] Start: 09-06-2019 End: 12-03-2024 Alcohol intake Current drinker of alcohol (finding) [facility] Start: 09-06-2019 Alcohol Comment social [facility] Start: 1950 Sex Assigned At Not on file [facility] Tobacco smoking consumption unknown [facility] Start: 09-08-2014 End: 09-06-2019 Tobacco use and exposure Smokeless tobacco non-user [facility] Start: 07-13-2021 End: 01-12-2025 Alcohol intake Ex-drinker (finding) [facility] Start: 07-13-2021 End: 07-30-2024 Alcohol intake [facility] Start: 09-08-2014 Alcohol Comment Occassionally [facility] Start: 1950 Sex Assigned At Female [facility] Start: 05-25-2021 End: 07-30-2024 Tobacco use panel [facility] National Score (1-10 0), lower number is lower risk Not on file [facility] Has the electric, ga s, oil, or water company threatened to shut off services in your home in past 12Mo No [facility] (I/We) worried wheth er (my/our) food would run out before (I/we) got money to buy more. Never true [facility] Start: 09-11-2019 Gender identity Identifies as female gender (finding) [facility] Start: 09-11-2019 Sexual orientation Heterosexual (finding) [facility] Start: 11-05-2024 End: 11-30-2024 Sex Female (finding) [facility] Functional Status Date Assessment Result Facility NEGATED: Highlighted row Functional performance Functional status health issues are not documented [facility] Work Phone: Mental Status Date Assessment Result Facility NEGATED: Highlighted row Cognitive function [Interpretation] Cognitive status health issues are not documented [facility] Work Phone: Clinical Notes 10-04-2022 to 03-11-2025 Telephone Encounter - Nita Null RN - 01/26/2025 3:40 PM EDTTelephone Encounter - Nita Null RN - 01/26/2025 3:40 PM EDTTelephone Encounter - Nita Null RN - 01/25/2025 2:58 PM EDT Note Date & Type Note Facility 03-11-2025 Radiology Diagnostic study note [facility] Imaging Services [address] [place], [place] [id number] Soft Tissue Neck WITH Contrast MR#: [id number] Acct: [id number] Name: CHINMAY GRIMALDO Rep #: [id number] : 1950 F 74 From: Paolo Ibarra MD PCP: Dr. Trang Carr MD Status: REG CL I Study:Soft Tissue Neck WITH Contrast Date of Exam: 03/10/25 Exam# [id number] Ordering Dr: Jeannine Carr MD PROCEDURE: SOFT [...] No acute abnormality is seen. Reading Location: [id number] CC: Dr. Trang Carr MD; Dr. Pb Corrales MD ~ [employer] Tester: Signed [facility] 01-26-2025 Telephone encounter Note Reviewed monitor results with pt per Dr. Dixon. Pt expressed appreciation and understanding and denies any further questions at this time. [facility] 01-26-2025 Miscellaneous Notes Reviewed monitor results with pt per Dr. Dixon. Pt expressed appreciation and understanding and denies any further questions at this time. Left a voicemail for pt to discuss test results. Asked that she call back. ----- Message from sent at 01/25/2025 2:39 PM EDT ----- Great news, monitor shows no atrial fibrillation and very low burden of PVCs. Everything that she triggered was normal sinus rhythm or rare PVCs or PACs which are nothing to worry about ----- Message ----- From: Background, Pacemate Sent: 01/25/2025 7:42 AM EDT To: Isabella Dixon MD documented in this encounter [facility] 01-25-2025 Telephone encounter Note Left a voicemail for pt to discuss test results. Asked that she call back. [facility] 01-25-2025 Telephone encounter Note ----- Message from S Day sent at 01/25/2025 2:39 PM EDT ----- Great news, monitor shows no atrial fibrillation and very low burden of PVCs. Everything that she triggered was normal sinus rhythm or rare PVCs or PACs which are nothing to worry about ----- Message ----- From: Background, Pacemate Sent: 01/25/2025 7:42 AM EDT To: Isabella Dixon MD [facility] 01-25-2025 Miscellaneous Notes Left a voicemail for [...] Isabella Dixon MD documented in this encounter [facility] 01-12-2025 Instructions Molly Kirby OD - 01/12/2025 3:10 PM EDT ASSESSMENT/PLAN: 1. Myopia of both eyes - ICD9: 367.1, ICD10: H52.13 (primary diagnosis) 2. Regular astigmatism of both eyes - ICD9: 367.21, ICD10: H52.223 3. Presbyopia - ICD9: 367.4, ICD10: H52.4 Continue to wear her glasses with the update. Continue to monitor her ocular health Recommended yearly exams. documented in this encounter [facility] 01-12-2025 Note HNO ID: [id number] Author: MOLLY KIRBY OD Service: ? Author Type: HOGSHEAD HAND Type: Progress Notes Filed: 01/12/2025 15:10 Note [...] neuro exam findings as obtained by others. [facility] 01-12-2025 History of Present illness Narrative ASSESSMENT/PLAN: [...] obtained by others. documented in this encounter [facility] 12-04-2024 Telephone encounter Note Error. [facility] 12-04-2024 Miscellaneous Notes Error. documented in this encounter [facility] 12-03-2024 Instructions Nita Null RN - 12/03/2024 2:42 PM EDT Images from the original note were not included. How to Contact your Care Team: Provider: Dr. Isabella Dixon MD Clinic Nurse: BRIANNE [facility] MA: RAHUL Pantoja REFILLS: When in need for refills please call your care team or the office at [phone]. Please include medication name, pharmacy name, and [...] we will call with results and plan [facility] Holter Department RAHUL Graham [phone] [employer] ([employer]) [phone] IMPORTANT! [employer] will be calling you from an [phone] number. You MUST answer this phone call and verify your address with the company, otherwise the monitor WILL NOT be mailed to you. If you do not receive a call from them within the week, feel free to reach out to them to verify your address. MONITOR END DATE: 30 days after placement *If you need help putting your monitor on, please call [phone] to schedule a nurse visit to go over instructions and device placement. Monitor Essentials 1. The device is waterproof. Showers are OKAY. Make sure you shave chest hair and clean and dry the skin before placing the monitor on your chest. 2. The monitor battery typically lasts 3-5 days, after this timeframe it will need to be charged. The compensation advisor is included in the box. 3. Extra patches are inside of the box. Sensitivity patches will need to be mailed by [facility] if needed. If you are wearing the monitor for 30 days, I suggest calling [facility] and requesting extra patches to be mailed to you once you leave the office so you receive them before you run out. [phone] 4. Please DO NOT return the device to [facility] after the study has been completed. It will be the patient's responsibility to return the device to [facility]. 5. After the device is mailed, it will take 2-3 weeks for your results to be returned to you. It is the ordering provider s nurse responsibility to call you with the results. [facility] Drop Off Box Locations Number for [facility]: [phone] [address] [place], [address] [address] [place], [address] [employer] [address] [place], [address] [facility] STORE # 1880 [address] [place], [address] [employer] [facility] [facility] [address] [place], [address] [facility] [address] [place], [address] [facility] [address] [place], [address] [facility] [address] [place], [address] [facility] [address] [facility], [place], [address] [facility] [address] [facility], [place], [address] [facility] #8781 [address] [place], [address] [employer] [facility] [address] [place], [address], [address] [address] [place], [address] [facility] # [address]67 [address] [place], [address] [facility] [facility] [facility] [address] [place], [address] documented in this encounter [facility] 12-03-2024 History of Present illness Narrative General Cardiology New Patient Clinic Consult [facility] Physician Group, Heart & Vascular 12/03/2024 Isabella Dixon MD [address] [place] [address], 3rd Floor Medical Office [facility] [address] Patient: Chinmay Grimaldo Date of [...] or fail to improve. Isabella Dixon MD, [facility] Non-Invasive Cardiology [facility] Heart and Vascular Physician Group P:[phone] F:[phone] History of Present Illness: Chinmay Grimaldo is a 74 y.o. woman with a past medical history of recent viral infection who presents today as a new patient visit. Patient previously followed with Dr. Vasquez back in 2020 for palpitations. She states that over the [...] Image Quality: Good, No significant artifacts. Scanner: TextPower DLP 123.07 mGy 72 cc Isovue-370. 0.4mg [...] tablet, Rfl: 0 documented in this encounter [facility] 12-03-2024 Note General Cardiology N ew Patient Clinic Consult [facility] Physician Group, Heart & Vascular 12/03/2024 Isabella Dixon MD [address] [place] [address], 3rd Floor Medical Office [facility] [address] Patient: Chinmay Grimaldo Date of [...] or fail to improve. Isabella Dixon MD, [facility] Non-Invasive Cardiology [facility] Heart and Vascular Physician Group P:[phone] F:[phone] ------ History of Present Illness: Chinmay Grimaldo [...] Image Quality: Good, No significant artifacts. Scanner: Radcom Revolution DLP 123.07 mGy 72 cc Isovue-370. [...] mild calcific plaque (more content not included)... [facility] 07-31-2024 Progress note Formatting of t his note might be different from the original. Patient alert and oriented at time of discharge. After visit summary provided. Patient acknowledges understanding of discharge teaching with teach back. [facility] 07-31-2024 Miscellaneous Notes Patient alert and oriented [...] Outcome: Partially Met documented in this encounter [facility] 07-31-2024 Note HMS DISCHARGE SUMMAR Y -- [facility] Chinmay Grimaldo Admitted: 07/30/2024 Discharge Date: 07/31/24 PCP Handoff Recommended Outpatient Testing Follow up with PCP, referral sent to cardiology Results Pending At Discharge None Clinical Summary Chinmay Grimaldo is a 73 y.o. female patient of Trang Carr MD with history of GERD who presented to [facility] on 07/30/2024 with chest pain. Chest pain [...] Up: Trang Carr MD [address] [facility] [address] Follow up Day, Isabella Otto MD [address] [facility] [id number] Follow up Referral sent Condition at Discharge: Good Disposition: Home I reviewed discharge recommendations with the patient in person. Patient instructions, including activity, were given to the patient/family at discharge. On day of discharge I saw Chinmay Grimaldo and spent: > 30 minutes on discharge. Completed by: Darby Velasco CNP on 07/31/24, 1:20 PM AUTHENTICATED BY DARBY VELASCO, ON 07/31/2024 13:26:58 [facility] 07-31-2024 Hospital course Narrative [facility] DISCHARGE SUMMARY -- [facility] Chinmay Grimaldo Admitted: 07/30/2024 Discharge Date: 07/31/24 PCP Handoff Recommended Outpatient Testing Follow up with PCP, referral sent to cardiology Results Pending At Discharge None Clinical Summary Chinmay Grimaldo is a 73 y.o. female patient of Trang Carr MD with history of GERD who presented to [facility] on 07/30/2024 with chest pain. Chest pain [...] Trang Carr MD [address] [facility] [address] Follow up Day, Isabella Otto MD [address] [facility] [address] Follow up Referral sent Condition at Discharge: Good Disposition: Home I reviewed discharge recommendations with the patient in person. Patient instructions, including activity, were given to the patient/family at discharge. On day of discharge I saw Chinmay Grimaldo and spent: > 30 minutes on discharge. Completed by: Darby Velasco CNP on 07/31/24, 1:20 PM documented in this encounter [facility] 07-31-2024 Nurse procedure note CCTA scan explained, questions answered. Denies taking any phosphodiesterase inhibitors for any reason [facility] 07-31-2024 Plan of care note Problem: Actual [...] level of psychosocial functioning Outcome: Partially Met [facility] 07-31-2024 Plan of care note Problem: Actual [...] level of psychosocial functioning Outcome: Partially Met [facility] 07-30-2024 Emergency department Note Report called to inpatient nurse June DECKER. Patient history, current status, and reason for admission discussed. No further questions asked at this time. [facility] 07-30-2024 Emergency department Note Report called to inpatient nurse June DECKER. Patient history, current status, and reason for admission discussed. No further questions asked at this time. Attempt to call report to inpatient nurse. Nurse will call this nurse back via Avanc[employer] per charge. Patient resting in bed at [...] light within reach. Associated Order(s): EKG 12-lead [facility] ED note NAME: Chinmay Grimaldo 73 y.o. CSN: [id number] PCP: Trang Carr MD History: Chief Complaint: [...] with her PCP. Denies history of CAD NC PE pneumothorax she said about 15 years [...] All other components within normal limits Narrative: [facility] Laboratory Services has implemented the eGFR calculation [...] Procedure Abnormality Status --------- ------ CBC Auto Differential[[id number]] Final result Please view results for these tests on the individual orders. TROPONIN TROPONIN TROPONIN CBC WITH AUTO DIFFERENTIAL XR Chest 1 View Final Result 1. Minimal linear atelectasis or scarring in the left lower lung zone. 2. Normal heart size. 3. No acute osseous abnormality. GJT/alt Workstation ID: [id number] CT CCTA Heart With And Without Contrast (Results Pending) CCTA Heart (Behavioral Intervention Specialist read) (Results Pending) Procedures: EKG 12-lead Date/Time: 07/30/2024 7:36 PM Performed by: Yisel Josue MD Authorized by: Yisel Josue MD Interpreted by ED attending physician Rhythm: sinus rhythm BPM: 75 Conduction: conduction normal ST Segments: ST segments normal T Waves: T waves normal Clinical impression: non-specific ECG Comments: EKG with normal sinus rhythm rate of 75 beats per minutes WI interval 148 ms QRS duration 84 ms [...] office visits, and/or recent consultations with PCP/specialist. AKANKSHAOH: Another factor that I considered in Chinmay's [...] Yisel Josue MD ED Attending Physician [facility] Emergency Department (Please note that [...] when she eats. documented in this encounter [facility] 07-30-2024 Emergency department Note Attempt to call report to inpatient nurse. Nurse will call this nurse back via Avancert per charge. [facility] 07-30-2024 Emergency department Note Patient resting in [...] in place and call light within reach. [facility] 07-30-2024 History and physical note [facility] HISTORY AND PHYSICAL -- [facility] Patient Name: Chinmay Grimaldo : 1950 MR #: [id number] Admit Date: 07/30/2024 Physicians: Trang Carr MD (Family); No ref. provider found (Referring) Chinmay Grimaldo is a 73 y.o. female patient of Trang Carr MD with history of GERD who presented to [facility] on 07/30/2024 with chest pain. Chest pain [...] with history of GERD who presented to [facility] on 07/30/2024 with chest pain. Pt stated she started having chest pain earlier today. She was unable to describe the pain, just described it as a sensation in the left side of her chest. It did not worsen with activity or improve with rest. Did not change with deep inspiration. She went to [place] ED for further evaluation. EKG unremarkable. CXR [...] to monitor and adjust care as needed. [facility] 07-30-2024 History and physical note [facility] HISTORY AND PHYSICAL -- [facility] Patient Name: Chinmay Grimaldo : 1950 MR #: [id number] Admit Date: 07/30/2024 Physicians: Trang Carr MD (Family); No ref. provider found (Referring) Chinmay Grimaldo is a 73 y.o. female patient of Trang Carr MD with history of GERD who presented to [facility] on 07/30/2024 with chest pain. Chest pain [...] with history of GERD who presented to [facility] on 07/30/2024 with chest pain. Pt stated she started having chest pain earlier today. She was unable to describe the pain, just described it as a sensation in the left side of her chest. It did not worsen with activity or improve with rest. Did not change with deep inspiration. She went to [place] ED for further evaluation. EKG unremarkable. CXR [...] care as needed. documented in this encounter [facility] 07-30-2024 Emergency department Note Patient resting in [...] in place and call light within reach. [facility] 07-30-2024 Emergency department Note Patient resting [...] in place and call light within reach. [facility] 07-30-2024 Physician Emergency department Note Associated Order(s): EKG 12-lead [facility] ED note NAME: Chinmay Grimaldo 73 y.o. CSN: [id number] PCP: Trang Carr MD History: Chief Complaint: [...] with her PCP. Denies history of CAD NC PE pneumothorax she said about 15 years [...] All other components within normal limits Narrative: [facility] Laboratory Services has implemented the eGFR calculation [...] Procedure Abnormality Status --------- ------ CBC Auto Differential[[id number]] Final result Please view results for these tests on the individual orders. TROPONIN TROPONIN TROPONIN CBC WITH AUTO DIFFERENTIAL XR Chest 1 View Final Result 1. Minimal linear atelectasis or scarring in the left lower lung zone. 2. Normal heart size. 3. No acute osseous abnormality. GJT/alt Workstation ID: [id number] CT CCTA Heart With And Without Contrast (Results Pending) CCTA Heart (Behavioral Intervention Specialist read) (Results Pending) Procedures: EKG 12-lead Date/Time: 07/30/2024 7:36 PM Performed by: Yisel Josue MD Authorized by: Yisel Josue MD Interpreted by ED attending physician Rhythm: sinus rhythm BPM: 75 Conduction: conduction normal ST Segments: ST segments normal T Waves: T waves normal Clinical impression: non-specific ECG Comments: EKG with normal sinus rhythm rate of 75 beats per minutes WI interval 148 ms QRS duration 84 ms [...] Yisel Josue MD ED Attending Physician [facility] Emergency Department (Please note that portions of this note have been completed with a voice recognition software. Efforts were made to correct any errors, but occasionally words are mis-transcribed.) Yisel Josue MD 07/31/[address] [facility] 07-30-2024 Emergency department Note Assumed care of this patient at this time,.Pt rounded on at this time. Pt resting comfortably. Denies needs at this time. Updated on plan of care. Call light within reach. [facility] 07-30-2024 Emergency department Note Patient reports chest pain on and off x 1 month. Patient reports she had a helter monitor a 1 week and just looked up her results tonight. [facility] 07-30-2024 Emergency department Note ED provider at the bedside. [facility] 07-30-2024 Emergency department Triage note Pt to ED with c/o chest pain that started today. Pt states it flares up when she eats. [facility] 03-23-2024 Instructions Molly Kirby OD - 03/23/2024 2:25 PM EDT ASSESSMENT/PLAN: 1. Dry eyes - ICD9: 375.15, ICD10: H04.123 Recommended the use of artificial tears four times per day to maintain good vision and comfort. Discussed contacting the office if there is a change in comfort or vision. Suggested dilated eye exam documented in this encounter [facility] 03-23-2024 Note HNO ID: [id number] Author: MOLLY KIRBY OD Service: ? Author Type: HOGSHEAD HAND Type: Progress Notes Filed: 03/23/2024 14:26 Note [...] neuro exam findings as obtained by others. [facility] 03-23-2024 History of Present illness Narrative ASSESSMENT/PLAN: [...] obtained by others. documented in this encounter [facility] 01-20-2024 Instructions Molly Kirby OD - 01/20/2024 [...] to be scheduled. documented in this encounter [facility] 01-20-2024 Note HNO ID: [id number] Author: MOLLY KIRBY OD Service: ? Author Type: HOGSHEAD HAND Type: Progress Notes Filed: 01/20/2024 08:32 Note [...] neuro exam findings as obtained by others. [facility] 01-20-2024 History of Present illness Narrative ASSESSMENT/PLAN: [...] obtained by others. 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 [facility] noteNo assessment information availableWBluffton Hospital Work Phone: Evaluation note* Diagnosis Subconjunctival hemorrhage of left eye- Primary documented in this encounter [facility] note* Diagnosis Dry eyes- Primary Tear film insufficiency, unspecified documented in this encounter [facility] note* Diagnosis Cardiac arrhythmia, unspecified cardiac arrhythmia type- Primary Palpitations Chest discomfort Other chest pain Chest pain- Primary Unspecified chest pain Chest pain, unspecified type documented in this encounter [facility] note* Diagnosis Cardiac arrhythmia, unspecified cardiac arrhythmia type- Primary Palpitations Chest discomfort Other chest pain Palpitations- Primary Chest pain, unspecified type documented in this encounter [facility] note* Diagnosis Myopia of both eyes- Primary Myopia Regular astigmatism of both eyes Regular astigmatism Presbyopia documented in this encounter [facility] Discharge instructions* Attachments The following attachments cannot be sent through Care Everywhere. 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 Advance Directives and Livin g Will 09/06/2019 5:10 PM Documents on File Type Date Recorded 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 Advance Directives and Livin g Will 09/06/2019 5:10 PM Advance Directives and Livin g Will 09/11/2019 12:00 AM Documents on File Type Date Recorded 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 Advance Directives and Livin g Will 09/06/2019 5:10 PM Advance Directives and Livin g Will 09/11/2019 12:00 AM Documents on File Type Date Recorded 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 Advance Directives and Living Will 09/11/2019 Date Activated Date Inactivated Comments 07/30/2024 9:33 PM 07/31/2024 4:30 PM Documents on File Type Date Recorded 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 Advance Directives and Living Will 09/11/2019 Date Activated Date Inactivated Comments 07/30/2024 9:33 PM 07/31/2024 4:30 PM Reason for Referral Status Reason Specialty Diagnoses / Procedures Referred By Contact Referred To Contact Pending Review Specialty Services Required/Patien t's Best Interest Cardiology Yisel Josue MD [address] [place] [address] Status Reason Specialty Diagnoses / Procedures Referred By Contact Referred To Contact Pending Review Cardiology Diagnoses Tachycardia Procedures Holter monitor - 48 hour Dipak Seth MD [address] [place] [address] Discharge Instructions * Attachments The following attachments cannot be sent through Care Everywhere. * Hypokalemia ([place] Korean) * Palpitations ([place]) documented in this encounter Assessments Diagnosis Palpitations Hypokalemia Hypopotassemia Diagnosis Cardiac arrhythmia, unspecified cardiac arrhythmia type Palpitations Chest discomfort Other chest pain Diagnosis Tachycardia Unspecified tachycardia Instructions Name Dates Details Instructions not documented History of Present Illness * Kimo Vasquez MD - 09/22/2019 9:27 AM EST OFFICE CONSULTATION NOTE [facility] Heart and Vascular Physicians [facility] [address] [facility] [address] [facility] [address] Physicians: Dipak Seth MD (Family); Yisel Josue [...] Complaint SEE ORDER Chief Complaint Admit Date December 04, 2024 2:5 3pm SCREENING January 13, 2025 10:06 am Chief Complaint Admit Date December 04, 2024 2:5 3pm SCREENING January 13, 2025 10:06 am JAW PAIN February 10, 2025 6:56a m Chief Complaint Admit Date PHARTIS December 04, 2024 2:5 3pm SCREENING January 13, 2025 10:06 am JAW PAIN February 10, 2025 6:56a m Jaw pain March 10, 2025 4:43 pm Chief Complaint Admit Date SCREENING January 13, 2025 10:06 am JAW PAIN February 10, 2025 6:56a m Jaw pain March 10, 2025 4:43 pm Additional Source Comments INFORMATION SOURCE (unrecogn ized section and content) DATE CREATED AUTHOR 04/17/2019 [facility] DATE CREATED AUTHOR AUTHOR'S ORGANIZ ATION 10/31/2020 [facility] DATE CREATED AUTHOR AUTHOR'S ORGANIZ ATION 01/25/[address] [facility] DATE CREATED AUTHOR AUTHOR'S ORGANIZ ATION 12/15/2022 [facility] DATE CREATED AUTHOR AUTHOR'S ORGANIZ ATION 12/01/2023 [facility] DATE CREATED AUTHOR AUTHOR'S ORGANIZ ATION 12/04/2024 [facility] DATE CREATED AUTHOR AUTHOR'S ORGANIZ ATION [facility]/20[facility] DATE CREATED AUTHOR AUTHOR'S ORGANIZ ATION 01/13/2025 [facility] DATE CREATED AUTHOR AUTHOR'S ORGANIZ ATION 04/11/2025 [facility] Reason for Visit (unrecogniz ed section and content) Reason Comments increased heart rate Reason Comments Establish Care hx of palpitations. no complaints of palps currently. Holter completed. Status Reason Specialty Diagnoses / Procedures Referred By Contact Referred To Contact Pending Review Specialty Services Required/Patien t's Best Interest Cardiology Yisel Josue MD [address] [place] [address] Status Reason Specialty Diagnoses / Procedures Referred By Contact Referred To Contact Pending Review Cardiology Diagnoses Tachycardia Procedures Holter monitor - 48 hour Dipak Seth MD [address] [place] [address] Reason Comments Blepharitis Evaluation Reason Comments Red Eye Left Eye Reason Comments Eye Pain Left Eye Reason Comments Chest Pain Specialty Diagnoses / Procedures Referred By Contac t Referred To Contact Diagnoses Chest pain Referral ID Status Reason Start Date Expiration Date Visits Re quested Visits Authorized [id number] 1 1 Reason Comments Palpitations Tachycardia Specialty Diagnoses / Procedures Referred By Contac t Referred To Contact Cardiology Diagnoses Chest pain, unspecified type [facility] [address] [place] [address] Phone: tel: fax: Isabella Dixon MD [address] [place] [address] Phone: tel: fax: Referral ID Status Reason Start Date Expiration Date V isits Requested Visits Authorized [id number] Pending Review 08/31/2024 08/31/2025 1 1 Reason [...] DIZZY. DENIES PREVIOUS HISTORY. ED PROVIDER NOTE [facility] EM[facility] NAME: Chinmay Grimaldo AGE: 68 y.o. : 1950 VISIT DATE: 09/06/2019 CSN: [id number] PCP: Dipak Seth MD Chief Complaint Patient [...] thyroid abnormalities she denies any history of [place] PE pneumothorax no recent travel hospitalization or [...] file Gets together: Not on file Attends worship service: Not on file Active member of [...] Colorless, Yellow Clarity, Urine Clear Clear Specific [place] 1.009 1.005 - 1.025 pH, Urine 5.0 [...] any previous history of coronary artery disease [place] PE pneumothorax presents to the ED with [...] Why: If symptoms worsen [address] [facility] [address] 2. [facility] Heart & Vascular Physicians. Specialty: Cardiology Why: If symptoms worsen [address] [facility] Medical Office [facility] [address] Contact information for after-discharge care Follow-up [...] or prosecute any alcohol or drug abuse patient.[facility] the event this information is protected by the Federal Confidentiality of Alcohol and Drug Abuse Patient Records regulations: The Federal rules restrict any use of the information to criminally investigate or prosecute any alcohol or drug abuse patient.[facility] the event this information is protected by the Federal Confidentiality of Alcohol and Drug Abuse Patient Records regulations: The Federal rules restrict any use of the information to criminally investigate or prosecute any alcohol or drug abuse patient.[facility] the event this information is protected by the Federal Confidentiality of Alcohol and Drug Abuse Patient Records regulations: The Federal rules restrict any use of the information to criminally investigate or prosecute any alcohol or drug abuse patient.[facility] Care Teams (unrecognized sec tion and content) Disabilities Caregiver Relationship Specialty Start Date End Date Dipak [...] Active Sondra Vu DO Attending Provider Active Disabilities Caregiver Relationship Specialty Start Date End Date Trang Carr MD [address] [place] [address] PCP - General Internal Medicine 01/20/24 Disabilities Caregiver Relationship Specialty Start Date End Date Trang Carr MD [address] [place], [place] [address] PCP - General Internal Medicine 01/20/24 Disabilities Caregiver Relationship Specialty Start Date End Date Trang Carr MD [address] [place], [place] [id number] PCP - General Family Medicine 11/25/23 Team Status: Active Member Role Status Jenny Carr MD Primary Care Provider Active Team Status: Inactive Member Role Status Jenny Carr MD Primary Care Provider Active St art: November 24, 2024 End: November 24, 2024 Aroldo Cespedes MAORI PHYSIOTHERAPIST, MAORI PHYSIOTHERAPIST-C Attending Provider Active Start: November 24, 2024 End: November 24, 2024 Aroldo Cespedes MAORI PHYSIOTHERAPIST, MAORI PHYSIOTHERAPIST-C Referring Provider Active Start: November 24, 2024 End: November 24, 2024 Disabilities Caregiver Relationship Specialty Start Date End Date Trang Carr MD [address] [place], [place] [id number] PCP - General Family Medicine 11/25/23 Disabilities Caregiver Relationship Specialty Start Date End Date Trang Carr MD [address] [place], [place] [id number] PCP - General Family Medicine 11/25/23 Team [...] January 13, 2025 End: January 13, 2025 Disabilities Caregiver Relationship Specialty Start Date End Date Trang Carr MD [address], [place] [id number] PCP - General Internal Medicine 01/20/24 Disabilities Caregiver Relationship Specialty Start Date End Date Trang Carr MD [address] [place], [place] [address] PCP - General Family Medicine 11/25/23 Team Status: Inactive Member Role Status Dates Trang Carr MD Primary Care Provider Active St art: January 19, 2025 End: January 19, 2025 Trang Carr MD Attending Provider Active Start : January 19, 2025 End: January 19, 2025 Trang Carr MD Referring Provider Active Start : January 19, 2025 End: January 19, 2025 Disabilities Caregiver Relationship Specialty Start Date End Date Trang Carr MD [address] [place], [place] [id number] PCP - General Family Medicine 11/25/23 Team Status: Active Member Role/Relationship Status Dates Trang Carr MD Primary Care Provider Active Team Status: Inactive Member Role/Relationship Status Dates Trang Carr MD Primary Care Provider Active St art: November 24, 2024 End: November 24, 2024 Aroldo Cespedes MAORI PHYSIOTHERAPIST, MAORI PHYSIOTHERAPIST-C Attending Provider Active Start: November 24, 2024 End: November 24, 2024 Aroldo Cespedes MAORI PHYSIOTHERAPIST MAORI PHYSIOTHERAPIST-C Referring Provider Active Start: November 24, 2024 End: November 24, 2024 Team Status: Inactive Member Role/Relationship Status Dates [...] March 10, 2025 End: March 10, 2025 Team Status: Inactive Member Role/Relationship [...] March 10, 2025 End: March 10, 2025 Team Status: Inactive Member Role/Relationship Status Jenny Carr MD Primary Care Provider Active St art: March 23, 2025 End: March 23, 2025 Trang Carr MD Attending Provider Active Start : March 23, 2025 End: March 23, 2025 Trang Carr MD Referring Provider Active Start : March 23, 2025 End: March 23, 2025 Team Status: Inactive Member Role/Relationship Status [...] March 10, 2025 End: March 10, 2025 Team Status: Inactive Member Role/Relationship Status Jenny Carr MD Primary Care Provider Active St art: March 23, 2025 End: March 23, 2025 Trang Carr MD Attending Provider Active Start : March 23, 2025 End: March 23, 2025 Trang Carr MD Referring Provider Active Start : March 23, 2025 End: March 23, 2025 Team Status: Inactive Member Role/Relationship Status Jenny Carr MD Primary Care Provider Active St art: April 01, 2025 End: April 01, 2025 Trang Carr MD Attending Provider Active Start : April 01, 2025 End: April 01, 2025 Trang Carr MD Referring Provider Active Start : April 01, 2025 End: April 01, 2025 Goals (unrecognized section and content) Goals [...] Nightly, First dose on Andreina 07/30/24 at [id number] (Given - Provider: Dipak Maldonado RN) metoprolol [...] fever 100.4 F or greater, Starting on Sat07/30/24 at 2203 aluminum-magnesium hydroxide-simethicone (MAALOX PLUS) 200-200-20 mg/5 mL suspension 30 mL 30 mL, Oral, Every 4 hours PRN, indigestion, heartburn, Starting on Sat07/30/24 at 2203 atropine injection 1 mg 1 [...] - Provider: Jaden Price, TECHNOLOGIST - Comment: [id number]/) metoprolol (LOPRESSOR) injection 10 mg 10 mg, Intravenous, Every 10 min PRN, 1 hour after oral dose for HR greater than 60 beats per minute AND SBP greater than 90 mmHg., Starting on Sat07/31/24 at 0817, For 3 doses, Pre-Procedure, >>>>>TO BE RELEASED AND GIVEN IN PROCEDURE AREA ONLY<<<<< Push over 3 minutes; may repeat dose 2 times. Notify Radiologist/Behavioral Intervention Specialist if HR remains greater than 60 beats [...] mL, Intravenous, Once in imaging, contrast, Per channel executive (Radiology) for line patency check prior to contrast administration, Starting on Sat07/31/24 at 1005, For 1 dose 1020 (Given - Provid er: TECHNOLOGIST Elen) sodium chloride (PF) (NS) 0.9 % contrast line flush 80 mL (COMPLETED)(Linked Group 1) 80 mL, Intravenous, Once in imaging, contrast, Per channel executive (Radiology), Starting on Sat07/31/24 at 1005, For 1 dose, 30 mL BEFORE contrast administration 50 mL AFTER contrast administration 1020 (Given - Provid er: LAVINIA MyrickOLOGIST) traZODone (DESYREL) tablet 50 mg 50 mg, Oral, Nightly PRN, sleep, Starting on Andreina 07/30/24 at 2203 Linked Groups Order Group 1: sodium chloride (PF) (NS) 0.9 % contrast line flush 10 mL (COMPLETED)Jump to med 10 mL, Intravenous, Once in imaging, contrast, Per channel executive (Radiology) for line patency check prior to contrast administration, Starting on Sat07/31/24 at 1005, For 1 dose And sodium chloride (PF) (NS) 0.9 % contrast line flush 80 mL (COMPLETED)Jump to med 80 mL, Intravenous, Once in imaging, contrast, Per channel executive (Radiology), Starting on Sat07/31/24 at 1005, For [...] BE BASED ON THE PRIMARY CLINICAL RECORDS. [employer] provides no warranty or guarantee of the accuracy or completeness of information in this document.
--- NOTE | 2025-04-24 11:55 | RAD_ITS ---
PROCEDURE: CHEST 1 VIEW (PORTABLE) 04/24/2025 REASON FOR EXAM: DYSPNEA TECHNIQUE: Frontal view of the chest. COMPARISON: None. FINDINGS: Hardware and support lines: None. Heart: Negative. Lungs: Negative for infiltrates, or pulmonary edema. Pleura: No pleural thickening. No pleural effusion. Mediastinum and aorta: Negative for hilar adenopathy. Mildly tortuous thoracic aorta. Bones: Slight degenerative changes in the shoulders. Age-appropriate degenerative changes of the spine. Other: Remainder of the exam negative. RAD/Chest 1 View (Portable) IMPRESSION: Negative chest Reading Location: [id number]
[2025-04-24 12:04] LABS: Anion Gap 13 (5-15); BUN 10 mg/dL (4-19); BUN/Creat Ratio 13.9 RATIO (10-20); Calcium,Total 10.2 mg/dL (7.6-11.0); Carbon Dioxide 25.4 mmol/L (21.0-32.0); Chloride 106 mmol/L (98-108); Estimated Creatinine Clearance 51.04 ml/min (50-250); Glucose 119 mg/dL (70-99); Potassium 3.9 mmol/L (3.3-5.1); Troponin T High Sensitivity 15 ng/L (<=14)
[2025-04-24 13:33] LABS: Troponin T High Sens 2 HR 21 ng/L (<=14)
[2025-04-24 15:37] LABS: Troponin T High Sens 4 HR 19 ng/L (<=14)
== END 2025-04-24 15:57 | disposition home or self-care (01) ==
PROVIDERS: Emergency Provider Emergency Medicine; PCP Family Medicine; Visit Provider Emergency Medicine
DX: I49.3 Ventricular premature depolarization (principal); R00.0 Tachycardia, unspecified; R07.89 Other chest pain; R42 Dizziness and giddiness
CPT/HCPCS: 71045; 80048; 84484; 85025; 85730; 93005; 96374; 99285; A4216

== ENCOUNTER → 2025-05-18 | Outpatient (CLI) | payer MEDICARE, SELFPAY ==
--- NOTE | 2025-05-18 09:35 | EMB_PTH ---
PATIENT: CHINMAY YANG LOC: [facility] U#:[id number] AGE/SX: 74/F ROOM: RE05/18/[address]: ARRON Jasso : 1950 BED: DIS: 05/18/2025 SPEC #: [id number] RECD: 05/18/25 12:18 STATUS: MARY REYvrose #: [id number] JOHANNE: 05/18/25 09:[address]: Glo Howe NP DEPT: SURGICAL PATHOLOGY RECD BY: Rashid Galicia ENTERED: 05/18/25 13:19 SP TYPE: ENDOM BX/C LEOBARDO DR: Trang Ye MD Tissues: A - Endometrium, NOS Procedures: Surgery Specimen Level IV HEADER OPERATION: Endometrial biopsy PRE-OP DIAGNOSIS: Post menopausal bleeding TISSUE SUBMITTED: A- Endometrial tissue MICROSCOPIC DIAGNOSIS A. Endometrium, biopsy: * Strips of superficial endometrial, endocervical, and squamous cervical epithelium. * A polyp is not identified. MICROSCOPIC DESCRIPTION Slides are reviewed. GROSS DESCRIPTION A. Received in formalin labeled with the patient's name and date of are minute flecks of free-floating apparent tissue which is entirely submitted in 1 cassette for cellblock preparation. Entirety of the specimen may not survive processing. GA 05/18/2025 CPT:18918
== END | disposition home or self-care (01) ==
LOC: LABSPEC 11:44
PROVIDERS: PCP Family Medicine; Visit Provider Nurse Practitioner Women's Health
DX: N95.0 Postmenopausal bleeding (principal)
CPT/HCPCS: 88305

== ENCOUNTER → 2025-05-19 | Outpatient (CLI) | payer MEDICARE, SELFPAY ==
--- NOTE | 2025-05-19 18:09 | US_ITS ---
PROCEDURE: PELVIC W/ TRANSVAGINAL REASON FOR EXAM: PMB TECHNIQUE: Procedure Code: USPELTVAG Modality: US Procedure: PELVIC W/ TRANSVAGINAL COMPARISON: None FINDINGS: Measurements: Uterus: 6.2 cm x 4.1 cm x 2.4 cm with a volume of 32.1 mL Endometrial Thickness: 2 mm. Fluid is seen within it. There is a 1.3 cm x 0.6 cm x 0.9 cm polyp in the endometrium. Right Ovary: 2.1 cm x 1.9 cm x 1.5 cm with a volume of 3.2 mL. Left Ovary: 1.6 cm x 1.5 cm x 1 cm with a volume of 1.3 mL. TRANSABDOMINAL: Uterus: Normal size, myometrial echotexture, and contour. Endometrium: Fluid-filled endometrium with findings suggestive of a 1.3 cm x 0.6 cm x 0.9 cm polyp. Right ovary: Normal size and echotexture. Left ovary: Normal size and echotexture. Other: No large pelvic mass identified. Transvaginal sonography was performed to better visualize the endometrium. TRANSVAGINAL: Uterus: Anteverted. Endometrium: Fluid-filled endometrium with a polyp within it measuring 1.3 cm x 0.9 cm x 0.6 cm. Right ovary: Normal size and echotexture. Left ovary: Normal size and echotexture. Other adnexal findings: None. Cul-de-sac: No free intraperitoneal fluid identified. Tenderness: No tenderness US/Pelvic w/ Transvaginal IMPRESSION: Fluid-filled endometrium with a polyp within it measuring 1.3 cm x 0.9 cm x 0.6 cm. Clinical correlation recommended. Reading Location: [place] [address]
== END | disposition home or self-care (01) ==
LOC: US 18:12
PROVIDERS: PCP Family Medicine; Referring Provider Family Medicine; Visit Provider Family Medicine
DX: N93.9 Abnormal uterine and vaginal bleeding, unspecified (principal)
CPT/HCPCS: 76830; 76856

== ENCOUNTER → 2025-06-22 | Outpatient (CLI) | payer MEDICARE, SELFPAY ==
--- NOTE | 2025-06-22 10:54 | BD_ITS ---
PROCEDURE: DEXA BONE DENSITY STUDY 06/22/2025 REASON FOR EXAM: F, age 74 y/o . Postmenopausal. TECHNIQUE: Procedure Code: BDDBD Modality: DX Procedure: DEXA BONE DENSITY STUDY COMPARISON: None FINDINGS: BMD and T-SCORES Lumbar spine: 0.948 g/cm2, T-score -0.9 Levels: L1 through L4 . Left femoral neck: 0.783 g/cm2, T-score -0.6 Femoral neck comparison data not recommended for monitoring change. Left total hip: 1.035 g/cm2, T-score 0.8 Right femoral neck: 0.797 g/cm2, T-score -0.5 Femoral neck comparison data not recommended for monitoring change. Right total hip: 1.031 g/cm2, T-score 0.7 The World Health Organization has defined the following categories based on bone density: Normal bone density: T-score equal to or greater than -1.0 Osteopenia: T-score between -1.0 and -2.5 Osteoporosis: T-score equal to or less than -2.5 FRAX (or Comparable) Fracture Risk Assessment: 10 Year Probability of Fracture: Major Osteoporotic Fracture: 13% Hip Fracture: 1.5% (Note: FRAX is not to be reported in setting of normal range bone density, osteoporosis on DEXA, known history of osteoporosis, prior osteoporotic hip or vertebral fracture, or for any patient undergoing pharmacological treatment for bone loss.) The National Osteoporosis Foundation (NOF) recommends pharmacological treatment for patients with a FRAX 10-year risk of 3% or higher for a hip fracture, or 20% or higher for a major osteoporotic fracture, to prevent osteoporosis and reduce fracture risk. The patient does not meet the pharmacological treatment recommendations for prevention of osteoporosis. BD/Dexa Bone Density Study IMPRESSION: NORMAL T-SCORES. Recommend follow-up as clinically warranted. Reading Location: [facility]
== END | disposition home or self-care (01) ==
LOC: OPBD 10:48
PROVIDERS: PCP Family Medicine; Referring Provider Family Medicine; Visit Provider Family Medicine
DX: M81.0 Age-related osteoporosis without current pathological fracture (principal)
CPT/HCPCS: 77080

== ENCOUNTER 2025-06-29 12:26 | Day surgery (SDC) | payer MEDICARE, SELFPAY ==
--- NOTE | 2025-06-21 16:33 | PAT.ANESEVAL ---
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 When Was Last Pacemaker Check QUESTION #4 FULL TEXT: You/Your Family Experience fever (hyperthermia) with Anesthesia Last Oral Intake Last Oral intake: Last Oral Intake NPO since Meds taken in AM with sips of water? 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 - building construction ironworker: PONV - building construction ironworker Female Yes 06/21/25 15:27 HX of Motion Sickness No 06/21/25 15:27 HX of N/V After Surgery No 06/21/25 15:27 Non-Smoker Yes 06/21/25 15:27 Duration of Surgery greater No 06/21/25 15:27 than 60 minutes Number of Risk Factors 2 06/21/25 15:27 PONV Score Moderate Risk 06/21/25 15:27 Height & Weight Height & Weight: Anesthesia: Height & Weight Height 5 ft 3 in 06/07/25 10:14 Respiratory Assessment Respiratory Assessment - building construction ironworker: Respiratory Tract Infection Hx - building construction ironworker Hx Respiratory Tract Infection No 06/21/25 15:27 STOP Sleep Apnea STOP Sleep Apnea - building construction ironworker: STOP Sleep Apnea - building construction ironworker Hx Hypertension No 06/21/25 15:27 Hx Sleep Apnea No 06/21/25 15:27 CPAP BIPAP Do you snore loudly (louder No 06/21/25 15:27 than talking or can be heard Do you often feel tired/ No 06/21/25 15:27 fatigued/ sleepy during daytime? Has anyone observed you stop No 06/21/25 15:27 breathing during sleep? STOP Results Negative 06/21/25 15:27 QUESTION #5 FULL TEXT : Do you snore loudly (louder than talking or can be heard through closed doors)? 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 Specify any problems Hx of Preganancy in last 3 No 06/21/25 15:27 Months Nurse Filling Out Transfusion JZOLLINGE 06/21/25 15:27 & Questions: Date: 06/21/25 06/21/25 15:27 Time: 15:28 06/21/25 15:27 Patient unable to answer at this time (ie. confused, unrespo /Reproduction History /Reproductive History - building construction ironworker: /Reproductive Hx- building construction ironworker Hx Now No 06/21/25 15:27 Gestational Age (in weeks): EDC: Hx Hx Para Hx Section SAB No 06/21/25 15:27 Does the father of the baby or his family experience fever w Father of the baby Malignant Hypertension history comment [facility] Medical History (Updated 06/21/25 @ 15:27 by Kiya Fraga) Wears glasses Gastric reflux Non-smoker History of stress test Osteoporosis High cholesterol SVT (supraventricular tachycardia) Home Medications ?Medication ?Instructions ?Recorded ?Last Taken ?Type denosumab 60 mg/mL subcutaneous 60 mg subcut .COMPLEX 04/23/24 10/09/24 History syringe (Prolia) cholecalciferol (vitamin D3) 125 125 mcg PO DAILY 04/24/25 04/23/25 History mcg (5,000 unit) tablet (Vitamin D3) diltiazem HCl 120 mg 120 mg PO DAILY #30 caps 04/24/25 Unknown Rx capsule,extended release 24 hr (Cartia XT) mecobalamin (vitamin B12) 1,000 1,000 mcg PO DAILY 04/24/25 04/23/25 History mcg chewable tablet rosuvastatin 20 mg tablet 20 mg PO QHS 04/24/25 04/23/25 History Allergy/AdvReac Type Severity Reaction Status Date / Time ibandronate sodium (From Allergy sore throat Verified 06/21/25 15:23 Roxana) Family History Grandmother Colon cancer Maternal Uncle Colon cancer Maternal Surgical History (Updated 06/21/25 @ 15:27 by Kiya Fraga) Hx of colonoscopy S/P appendectomy Social History household members: spouse current occupational status: retired Smoking Status: Never smoker alcohol intake: never substance use type: does not use seatbelt use: always do you feel safe at home: Yes additional social history: - Keith Audit: Pertinent Findings Pertinent Findings EKG Perinent findings: 04/2025: Sinus tachycardia with Premature supraventricular complexes Nonspecific ST and T wave abnormality Abnormal ECG possible PAF Confirmed by Daniel Farias ([id number]), editorial assistant MONAE GOMES ([id number]) on 04/26/2025 1:15:11 PM Stress test pertinent findings: 04/2025: Negative stress test result Recommendation Anesthesia Recommendation Anesthesia recommendation: OPTIMIZED for anesthesia (EKG on DOS please)
[2025-06-29] VITALS (8 sets, daily range): BP systolic 94–116; BP diastolic 43–62; PULSE 62–72; RESP 12–18; TEMP 36.1–36.8; O2SAT 95–98; BMI 23.8
[2025-06-29] MEDS: Lactated Ringers 1,000 ML 15 ML IV (13:08)
--- NOTE | 2025-06-29 13:27 | PCM.PRE.AN2 ---
ASA Classification* ASA Classification ASA Classification: 2 Assessment & Plan Anesthesia* Anesthesia Assessment Anesthesia Assessment: Discussed sedation and/or anesthesia options, risks, benefits, and alternatives with patient/parents/legal guardian/POA. Questions invited. The patient/parents/legal guardian/POA seems to understand and agrees to proceed with anesthesia plan. Reviewed the physical assessment, medical history, allergy history and patient home medications list prior to surgery/procedure/anesthetic and documented any changes. Performed airway and anesthesia risk assessments. Anesthesia Type Anesthesia Type: MAC History Source History Obtained from:: Patient and Chart Anesthesia Focused Assessment* Temperature: 98.3 F Pulse Rate: 72 Blood Pressure: 116/56 Respiratory Rate: 12 Pulse Ox: 98 Oxygen Delivery Method: Room Air Airway Assessment Mouth opens: >3 cm Mallampati Score: II Teeth Condition: Intact Neck Range of motion (ROM): Full ROM Labs Anesthesia Preop lab: CBC WBC, (4.4-11.0) 7.4 K/mm3 04/24/25, 11:07 RBC, (4.2-5.4) 4.36 M/mm3 04/24/25, 11:07 Hgb, (12.0-15.0) 13.4 g/dL 04/24/25, 11:07 Hct, (37-47) 40.0 % 04/24/25, 11:07 Plt Count, (150-450) 217 K/mm3 04/24/25, 11:07 CHEMISTRY Potassium, (3.3-5.1) 3.9 mmol/L 04/24/25, 11:07 Sodium, (133-145) 145 mmol/L 04/24/25, 11:07 BUN, (4-19) 10 mg/dL 04/24/25, 11:07 Creatinine, (0.70-1.20) 0.73 mg/dL 04/24/25, 11:07 Glucose, (70-99) 119 mg/dL H 04/24/25, 11:07 COAG Pre-Assessment Diagnosis/Proposed Procedure Planned Operative Procedure(s): Hysteroscopy,D&C Symphion Anesthesia History 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 When Was Last Pacemaker Check QUESTION #4 FULL TEXT: You/Your Family Experience fever (hyperthermia) with Anesthesia Last Oral Intake Last Oral intake: Last Oral Intake NPO since 22:00 06/29/25 13:02 Meds taken in AM with sips of Yes 06/29/25 13:02 water? 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 Female Yes 06/21/25 15:27 HX of Motion Sickness No 06/21/25 15:27 HX of N/V After Surgery No 06/21/25 15:27 Non-Smoker Yes 06/21/25 15:27 Duration of Surgery greater No 06/21/25 15:27 than 60 minutes Number of Risk Factors 2 06/21/25 15:27 PONV Score Moderate Risk 06/21/25 15:27 Height & Weight Height & Weight: Anesthesia: Height & Weight Height 5 ft 3 in 06/29/25 13:02 Weight: 61 kg 06/29/25 13:02 Body Mass Index (BMI) 23.8 06/29/25 13:02 Respiratory Assessment Respiratory Assessment - 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 Has anyone observed you stop No 06/21/25 15:27 breathing during sleep? STOP Results Negative 06/21/25 15:27 QUESTION #5 FULL TEXT : Do you snore loudly (louder than talking or can be heard through closed doors)? 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 Specify any problems Hx of Preganancy in last 3 No 06/21/25 15:27 Months Nurse Filling Out Transfusion JZOLLINGE 06/21/25 15:27 & Questions: Date: 06/21/25 06/21/25 15:27 Time: 15:28 06/21/25 15:27 Patient unable to answer at this time (ie. 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: /Reproductive Hx- tongue lining stitcher Hx Now No 06/21/25 15:27 Gestational Age (in weeks): EDC: Hx Hx Para Hx Section SAB No 06/23/25 09:28 Does the father of the baby or his family experience fever w Father of the baby Malignant Hypertension history comment Active Medications Active Medications: Current Medications Generic Name Dose Route Start Last Admin Trade Name Freq PRN Reason Stop Dose Admin Lactated Ringer's 1,000 mls @ 15 mls/hr 06/29/25 12:45 06/29/25 13:08 IV 15 mls/hr .Q48H NORIS Administration PFSH Medical History Wears glasses Gastric reflux Non-smoker History of stress test Osteoporosis High cholesterol SVT (supraventricular tachycardia) Home Medications ?Medication ?Instructions ?Recorded ?Last Taken ?Type denosumab 60 mg/mL subcutaneous 60 mg subcut .COMPLEX 04/23/24 06/08/25 History syringe (Prolia) cholecalciferol (vitamin D3) 125 125 mcg PO DAILY 04/24/25 06/28/25 History mcg (5,000 unit) tablet (Vitamin D3) diltiazem HCl 120 mg 120 mg PO DAILY #30 caps 04/24/25 06/29/25 Rx capsule,extended release 24 hr (Cartia XT) mecobalamin (vitamin B12) 1,000 1,000 mcg PO DAILY 04/24/25 06/28/25 History mcg chewable tablet rosuvastatin 20 mg tablet 20 mg PO QHS 04/24/25 06/28/25 History Allergy/AdvReac Type Severity Reaction Status Date / Time ibandronate sodium (From Allergy sore throat Verified 06/29/25 13:00 Roxana) Family History Grandmother Colon cancer Maternal Uncle Colon cancer Maternal Surgical History Hx of colonoscopy S/P appendectomy Social History household members: spouse current occupational status: retired Smoking Status: Never smoker alcohol intake: never substance use type: does not use seatbelt use: always do you feel safe at home: Yes additional social history: - Keith Review of Systems (Anesthesia) ROS Narrative System reviewed and no additional complaints, except as documented.
--- NOTE | 2025-06-29 13:29 | HP.PCM_ITS ---
History and Physical Vital Signs 06/07/2510:14 06/23/2509:24 Height 5 ft 3 in 5 ft 3 in Weight: 135 lb 4 oz 137 lb BMI 23.9 24.3 BP 153/70 H 118/69 Intake Visit Reasons: Pre-Op & paperwork Surgical Nurse Practitioner Required: No Is patient in pain?: No Allergies ibandronate sodium (From Boniva) Allergy (Verified 06/23/25 09:26) sore throat Medications ?Medication ?Instructions ?Recorded ?Confirmed ?Type denosumab 60 mg/mL subcutaneous 60 mg subcut .COMPLEX 04/23/24 06/23/25 History syringe (Prolia) cholecalciferol (vitamin D3) 125 125 mcg PO DAILY 04/24/25 06/23/25 Histo ry mcg (5,000 unit) tablet (Vitamin D3) diltiazem HCl 120 mg 120 mg PO DAILY #30 caps 04/24/25 Rx capsule,extended release 24 hr (Cartia XT) mecobalamin (vitamin B12) 1,000 1,000 mcg PO DAILY 04/24/25 06/23/25 His tory mcg chewable tablet rosuvastatin 20 mg tablet 20 mg PO QHS 04/24/25 06/23/25 History Is last menstrual period known: No Post menopausal: Yes Patient : No : No [facility] Medical History Wears glasses Gastric reflux Non-smoker History of stress test Osteoporosis High cholesterol SVT (supraventricular tachycardia) Surgical History Hx of colonoscopy S/P appendectomy Family History Grandmother Colon cancer Maternal Uncle Colon cancer Maternal Social History household members: spouse current occupational status: retired Smoking Status: Never smoker alcohol intake: never substance use type: does not use seatbelt use: always do you feel safe at home: Yes additional social history: - Keith HPI Pre-Op & paperwork Details: [facility] [address], [address] [place] [address] OFFICE VISIT Date of Service: 06/07/25 MR#: [id number] Acct: [id number] Name: CHINMAY YANG Rep #: [id number] : 1950 Provider: Dr. Yahaira Burkett MD Age/Sex: 74/F Location: [facility] [place] Status: Signed Intake Vital Signs 05/18/2509:11 06/07/2510:14 06/07/2510:47 Height 5 ft 3 in 5 ft 3 in Weight: 133 lb 2 oz 135 lb 4 oz BMI 23.6 23.9 BP 135/76 H 153/70 H 130/73 H Intake Visit Reasons: Discuss hysterscopy D&C d/t polyp per Surgical Nurse Practitioner Required: No Is patient in pain?: Yes (dull right pelvic pain) Pain scale (1-10): 4 Allergies ibandronate sodium (From Boniva) Allergy (Verified 06/07/25 10:16) sore throat Medications ?Medication ?Instructions ?Recorded ?Confirmed ?Type denosumab 60 mg/mL subcutaneous 60 mg subcut .COMPLEX 04/23/24 06/07/25 History syringe (Prolia) cholecalciferol (vitamin D3) 125 125 mcg PO DAILY 04/24/25 06/07/25 Histo ry mcg (5,000 unit) tablet (Vitamin D3) diltiazem HCl 120 mg 120 mg PO DAILY #30 caps 04/24/25 Rx capsule,extended release 24 hr (Cartia XT) mecobalamin (vitamin B12) 1,000 1,000 mcg PO DAILY 04/24/25 06/07/25 His tory mcg chewable tablet rosuvastatin 20 mg tablet 20 mg PO QHS 04/24/25 06/07/25 History Is last menstrual period known: No Post menopausal: Yes Patient : No : No [facility] Medical History (Updated 06/07/25 @ 10:[address] Yahaira Burkett MD) Osteoporosis High cholesterol SVT (supraventricular tachycardia) Surgical History S/P appendectomy Family History Grandmother Colon cancer Maternal Uncle Colon cancer Maternal Social History household members: spouse current occupational status: retired Smoking Status: Never smoker alcohol intake: never substance use type: does not use seatbelt use: always do you feel safe at home: Yes additional social history: - Keith HPI Discuss hysterscopy D&C d/t polyp per Details: The patient is a female with a history of postmenopausal bleeding, chronic lower abdominal pain, and supraventricular tachycardia presenting for evaluation. Postmenopausal Bleeding - Onset in the second week of April. - Reports minimal bleeding over the past three weeks, primarily spotting. - Suspects a polyp as the cause of the bleeding based on ultrasound findings. normal EMB done previously Chronic Lower Abdominal Pain - Diagnosed with irritable bowel syndrome (IBS) approximately three years ago, coinciding with the onset of chronic lower abdominal pain. - Pain is intermittent, lasting for days at a time, and is not associated with bowel movements. - Experiences occasional constipation and diarrhea, but these are not directly linked to the abdominal pain. - Reports mild pain today, localized to the right lower abdomen. Urinary Frequency - Reports frequent urination, sometimes up to 5-6 times per night. Neck Pain and Dysphagia - Reports neck pain and difficulty swallowing since October. - Has undergone multiple ultrasounds and MRIs. - Scheduled to see a neurologist in August. Past Medical History - Supraventricular tachycardia - Osteoporosis - Irritable bowel syndrome (diagnosed approximately three years ago) Current Medications and Supplements - Cartia - Prolia Past Diagnostic Results - Urinalysis (recent): Clear. Uterus: 6.2 cm x 4.1 cm x 2.4 cm with a volume of 32.1 mL Endometrial Thickness: 2 mm. Fluid is seen within it. There is a 1.3 cm x 0.6 cm x 0.9 cm polyp in the endometrium. History 3 Elective abortions Hx Para 4 Spontaneous abortions Hx # Term Pregnancies Ectopic pregnancies Hx # Pregnancies Multiple births 1 # of living children 4 ROS ROS Narrative Constitutional: (+) weight loss, (+) decreased appetite Ears/Nose/Mouth/Throat: (+) dental pain Neck: (+) neck pain Cardiovascular: (-) chest pain Respiratory: (-) shortness of breath Gastrointestinal: (+) lower abdominal pain, (+) intermittent constipation, (+) intermittent diarrhea Genitourinary: (+) vaginal spotting, (+) urinary frequency, (+) nocturia, (-) vaginal blood clots Musculoskeletal: (-) back pain, (-) joint pain Skin: (-) rash Hematologic/Lymphatic: (-) leg swelling Exam Const General: cooperative, healthy appearing, comfortable and no acute distress Orientation: alert HENMT Head: normal to inspection and normocephalic Ears: hearing grossly normal bilaterally and external ears normal Nose: external nose normal and nares normal Face and sinus: normal facial exam Neck Neck: normal visual inspection and no lymphadenopathy Thyroid: thyroid normal Chest Chest palpation & inspection: normal inspection of the chest Resp Effort & Inspection: normal respiratory effort Auscultation: clear to auscultation bilaterally Cardio Rate: regular rate Rhythm: regular rhythm Heart Sounds: S1 normal and S2 normal GI Inspection: normal to inspection and non-distended Palpation: soft and no hepatosplenomegaly Other: tender right lower Musc Other: gross motor intact no deficits, full bilateral strength Skin General: no rashes or lesions noted Neuro General: patient alert, patient awake, moves all extremities and no focal motor deficits Motor: muscle tone normal throughout Extrem General: normal to inspection and no pedal edema Psych Appearance: grossly normal Mental Status: mental status grossly normal Affect: normal affect Speech and Movement: speech and movement normal Coding Level of Care Code Off vis,est,level 4 Diagnoses PMB (postmenopausal bleeding) N95.0 Endometrial polyp N84.0 SVT (supraventricular tachycardia) I47.10 Overactive bladder N32.81 Assessment and Plan Assessment and Plan (1) PMB (postmenopausal bleeding): Status: Acute Comment: EMB and US reviewed. polyp seen. plan d and c hysteroscopy symphion (2) Endometrial polyp: Status: Acute (3) SVT (supraventricular tachycardia): Status: Acute (4) Overactive bladder: Status: Acute Comment: eligio consult Orders: Referrals Urogynecology N32.81 - Overactive bladder Plan # Postmenopausal bleeding (N95.0): - Intermittent spotting over the past several weeks, currently minimal. - Noted likely correlation with identified endometrial polyp. - Proceeding with dilation and curettage (D&C) for diagnostic and therapeutic purposes. - Reviewed potential risks of the procedure, including bleeding, infection, anesthesia-related complications, and the possibility of uterine perforation requiring further surgical intervention. - Patient informed that pathology evaluation is necessary to rule out or detect precancerous changes. - Scheduling initiated for surgical management. # Endometrial polyp (N84.0): - Likely origin of recent postmenopausal bleeding; differential considerations include benign versus precancerous pathology. - See ?Postmenopausal bleeding? above for surgical management plan. # Overactive bladder (N32.81): - Complaints of nocturia up to 5?6 times nightly. - Advised referral to urogynecology (Gerda Mccann) for further evaluation and possible treatment options, including pharmacotherapy and pelvic floor therapy. # Supraventricular tachycardia (I47.10): - Stable on current regimen of Cartia. - No recent episodes of chest pain or dyspnea. - Continuing same pharmacologic management without adjustment at this time. After discussing the patient's diagnosis and treatment plan options, patient wishes to proceed with surgical management. I have discussed with the patient the risks, benefits, and alternatives of the procedure which include but are not limited to risks of anesthesia, bleeding, infection, possible damage to bowel, bladder, or surrounding vasculature which could lead to additional surgery to evaluate any complications. Patient agrees to procedure and wishes to proceed. ACOG/uptodate references given for additional information regarding procedure. Patient Instructions: - A referral has been sent to schedule removal of your uterine polyp. The ticket counter will contact you with the date and time. We discussed the procedure will be done with a camera and fluid to distend the uterus, and that risks include bleeding, infection, anesthesia reactions, and rarely needing additional surgery if the uterus is pierced. - You?ve been referred to Dr. Gerda Mccann, urogynecologist, for evaluation of your urinary frequency and nighttime urination. Please call her office to make an appointment. - Continue with your planned neurology appointment in August for evaluation of your neck pain, numbness, and tingling. - Have your blood pressure rechecked today or at your next visit. - No further Pap tests are needed at this time, since your screenings were normal through age 65. UPDATE- I have seen the patient and performed any clinically relevant updates to the history and physical exam. Yahaira Burkett MD
--- NOTE | 2025-06-29 14:15 | EMB_PTH ---
PATIENT: CHINMAY YANG LOC: [facility] [place] U#:[id number] AGE/SX: 74/F ROOM: RE06/29/[address]: Dr. Yahaira Burkett MD : 1950 BED: DIS: 06/29/2025 SPEC #: [id number] RECD: 06/29/25 17:56 STATUS: MARY REQ #: [id number] JOHANNE: 06/29/25 14:[address]: Yahaira Burkett DEPT: SURGICAL PATHOLOGY RECD BY: Rashid Galicia ENTERED: 06/30/25 10:55 SP TYPE: ENDOM BX/C OTHR DR: Trang Ye MD Tissues: A - Endometrium, NOS Procedures: Surgery Specimen Level IV HEADER OPERATION: Hysteroscopy, D&C PRE-OP DIAGNOSIS: Post menopausal bleeding TISSUE SUBMITTED: A- Endometrial curettings and polyp MICROSCOPIC DIAGNOSIS A. Endometrium, curettage, polypectomy: - Inactive endometrium with benign endometrial polyp(s) MICROSCOPIC DESCRIPTION Slides are reviewed. GROSS DESCRIPTION A. Received in formalin labeled with the patient's name and date of . Designated as endometrial curettage + polyp is a is a 2.5 x 2.2 x 0.3 cm aggregate of robbins irregular tissue fragments. Entirely submitted in 1 cassette. AK 06/30/2025 CPT:[id number]
[2025-06-29] MEDS: Midazolam 2 MG/2 ML Syringe IV (15:34)
[2025-06-29] MEDS: Lidocaine 1% (5 ml sdv) 5 ML Vial 6 ML IV (15:39)
[2025-06-29] MEDS: Lidocaine 1% (20 ml mdv) 20 ML Vial (15:54)
--- NOTE | 2025-06-29 16:17 | PCM.POST.ANE ---
Anesthesia: Postop Eval I Current Vital Signs Temperature: 97.9 F Pulse Rate: 64 Blood Pressure: 106/45 Respiratory Rate: 16 Pulse Ox: 96 Oxygen Delivery Method: Room Air Assessment Airway patent: Yes Spontaneous unlabored respirations: Yes Mental status: Awake and Calm nausea: No Vomiting: No Anesthesia Complication: No Fluid Hydration Crystalloid volume administer (ml): 600 Total IV fluid infused: 600 Progress Note Anesthesia document: Postop Eval 1 completed: Yes
--- NOTE | 2025-06-29 16:54 | OP.PCM_ITS ---
Multi Select Codes Urinary/Genital Urinary/Genital CPT Codes: 96880 Hysteroscopy, Polypectomy, Symphion Operative Report (Standard) Operative Information Date of Procedure: 06/29/25 Pre-Operative Diagnosis: pmb polyp Post-Operative Diagnosis: same Surgery/Procedure Performed: dilation and curettage hysteroscopy symphion polypectomy oyster picker: No Type of Anesthesia: IV Sedation RN Documented Start/Stop Times: Operation Date: 06/29/25 14:15 Case Time Into Pre-Op 06/29/25 12:39 Anesthesia Start 06/29/25 15:34 Into Room 06/29/25 15:34 Procedure Start 06/29/25 15:54 Procedure End 06/29/25 16:05 Anesthesia End 06/29/25 16:13 Out of Room 06/29/25 16:13 Into Recovery 06/29/25 16:15 Out of Recovery 06/29/25 16:35 Into Phase II Recovery 06/29/25 16:36 Out of Phase II 06/29/25 17:38 Procedure Start Time: 15:54 Procedure Stop Time: 16:05 Select all DRAINS/GRAFTS/IMPLANTS that apply: None Estimated Blood Loss: 25 Specimen collected: Yes Description of specimen(s) removed: endometrial curretings and polyp Description of surgery: Patient was prepped and draped in a normal sterile fashion under MAC anesthesia. A weighted speculum was placed in the vagina and the anterior lip of the cervix was grasped with a single-tooth tenaculum. A paracervical block was placed with 1% lidocaine. Cervix was progressively dilated to allow passage of a 5 mm hysteroscope. The lining was fully visualized and noted to have a large polyp present . Uterine sounded to 8 cm. Using the symphion device, the polyp was progressively removed without complications. Direct visual curettage was performed using the device , and all specimens were sent to pathology. All instruments were removed from the vagina and excellent hemostasis was noted. Patient was awoken and taken to recovery in stable condition. Surgical Findings: endometrial polyp Complications Complications: No
--- NOTE | 2025-06-29 17:36 | POSTOPAN2_ITS ---
Anesthesia Postop Eval I Sum Postop Eval Completion status Anesthesia document: Postop Eval 1 completed: Yes Anesthesia Postop Eval I Summary Anesthesia Postop Eval I Summary: Anesthesia Postop Eval I: Assessment Summary Airway patent Yes 06/29/25 16:18 CHAIR CAR ATTENDANT.ROBERTOBY Spontaneous unlabored Yes 06/29/25 16:18 CHAIR CAR ATTENDANT.DUARTE respirations Mental status Awake,Calm 06/29/25 16:18 CHAIR CAR ATTENDANT.ROBERTOBCristian nausea No 06/29/25 16:18 CHAIR CAR ATTENDANT.ROBERTOBCristian Vomiting No 06/29/25 16:18 CHAIR CAR ATTENDANT.ROBERTOBCristian Anesthesia Postop Eval I: Fluid Summary Crystalloid volume administer 600 06/29/25 16:18 CHAIR CAR ATTENDANT.ROBERTOBY (ml) Colloids volume administered ( ml) Blood Product volume administered (ml) Total IV fluid infused 600 06/29/25 16:18 CHAIR CAR ATTENDANT.ROBERTOBCristian Anesthesia Postop Eval I: Summary Notes Anesthesia Complication No 06/29/25 16:18 CHAIR CAR ATTENDANT.DUARTE Anesthesia Complication Comment: Post-operative progress note Anesthesia: Postop Eval II Evaluation Mental status: Awake and Calm Pain Level: 1 nausea: No Vomiting: No Complications Anesthesia Complication: No
--- NOTE | 2025-06-29 17:36 | PCM.POSTANE2 ---
Anesthesia Postop Eval I Sum Postop Eval Completion status Anesthesia document: Postop Eval 1 completed: Yes Anesthesia Postop Eval I Summary Anesthesia Postop Eval I Summary: Anesthesia Postop Eval I: Assessment Summary Airway patent Yes 06/29/25 16:18 TEACHER HEARING IMPAIRED.ROBERTOBY Spontaneous unlabored Yes 06/29/25 16:18 TEACHER HEARING IMPAIRED.DUARTE respirations Mental status Awake,Calm 06/29/25 16:18 TEACHER HEARING IMPAIRED.ROBERTOBCristian nausea No 06/29/25 16:18 TEACHER HEARING IMPAIRED.ROBERTOBCristian Vomiting No 06/29/25 16:18 TEACHER HEARING IMPAIRED.ROBERTOBCristian Anesthesia Postop Eval I: Fluid Summary Crystalloid volume administer 600 06/29/25 16:18 TEACHER HEARING IMPAIRED.ROBERTOBY (ml) Colloids volume administered ( ml) Blood Product volume administered (ml) Total IV fluid infused 600 06/29/25 16:18 TEACHER HEARING IMPAIRED.ROBERTOBCristian Anesthesia Postop Eval I: Summary Notes Anesthesia Complication No 06/29/25 16:18 TEACHER HEARING IMPAIRED.DUARTE Anesthesia Complication Comment: Post-operative progress note Anesthesia: Postop Eval II Evaluation Mental status: Awake and Calm Pain Level: 1 nausea: No Vomiting: No Complications Anesthesia Complication: No
== END 2025-06-29 17:38 | disposition home or self-care (01) ==
LOC: SDC 12:27 → AC 12:28
PROVIDERS: PCP Family Medicine; Referring Provider Obstetrics & Gynecology; Visit Provider Obstetrics & Gynecology
PROC: 0UB98ZZ Excision of Uterus, Via Natural or Artificial Opening Endoscopic (ICD-10-PCS; CPT 58558; principal; 2025-06-29 14:00)
DX: N84.0 Polyp of corpus uteri (principal); N95.0 Postmenopausal bleeding; M81.0 Age-related osteoporosis without current pathological fracture; E78.00 Pure hypercholesterolemia, unspecified; G89.29 Other chronic pain; R10.30 Lower abdominal pain, unspecified; N32.81 Overactive bladder; M54.2 Cervicalgia; R13.10 Dysphagia, unspecified; I47.10 Supraventricular tachycardia, unspecified; Z79.899 Other long term (current) drug therapy
CPT/HCPCS: 58558; 00952; 36415; 86850; 86900; 86901; 88305

== ENCOUNTER → 2025-08-02 | Outpatient (CLI) | payer MEDICARE, SELFPAY ==
--- NOTE | 2025-08-02 16:49 | RAD_ITS ---
PROCEDURE: RIGHT SHOULDER MIN 2 VIEWS 08/02/2025 REASON FOR EXAM: PAIN TECHNIQUE: Procedure Code: RADSH Modality: DX Procedure: SHOULDER MIN 2 VIEWS COMPARISON: None. FINDINGS: No acute fracture or dislocation. Alignment is anatomic. Preserved joint spaces. No aggressive osseous lesion. No marked soft tissue swelling or radiopaque foreign body. RAD/Shoulder min 2 Views IMPRESSION: No acute fracture, dislocation, or significant arthrosis. Reading Location: [id number]
--- NOTE | 2025-08-02 16:49 | RAD_ITS ---
PROCEDURE: LEFT SHOULDER MIN 2 VIEWS 08/02/2025 REASON FOR EXAM: PAIN TECHNIQUE: Procedure Code: RADSH Modality: DX Procedure: SHOULDER MIN 2 VIEWS COMPARISON: None. FINDINGS: No acute fracture or dislocation. Alignment is anatomic. Preserved joint spaces. No aggressive osseous lesion. No marked soft tissue swelling or radiopaque foreign body. RAD/Shoulder min 2 Views IMPRESSION: No acute fracture, dislocation, or significant arthrosis. Reading Location: [id number]
[2025-08-02 18:27] LABS: Ferritin 69 ng/mL (22-378); Iron 70 ug/dL (50-170); Iron Binding Capacity,Total 319 ug/dL (250-450); Iron Binding Capacity,Unsat 249 ug/dL (228-428); Troponin T High Sensitivity < 6 ng/L (<=14)
[2025-08-06 11:08] LABS: Anti-Histone Abs 2.7 Units (0.0-0.9)
== END | disposition home or self-care (01) ==
PROVIDERS: PCP Family Medicine; Referring Provider Family Medicine; Visit Provider Family Medicine
DX: M25.511 Pain in right shoulder (principal); M25.512 Pain in left shoulder; D64.9 Anemia, unspecified; R73.09 Other abnormal glucose; R76.89 Other specified abnormal immunological findings in serum; R79.89 Other specified abnormal findings of blood chemistry
CPT/HCPCS: 36415; 73030; 82728; 83036; 83540; 83550; 84484; 86235